=== PATIENT | male | born 1935 | race Caucasian/White ===

== ENCOUNTER → 2016-11-21 | Outpatient (CLI) | payer OTHER ==
[~2016-11-21] MED LIST: ACET-1311 PO; ALBUAER2 INH; AMPI500C9 PO; ASPI-232 PO; LSN20 PO; MOME200A INH; PRVC/20 PO; SPRIN/30 INH; TAMS0.4C38 PO
== END | disposition home or self-care (01) ==
LOC: C.LABSPEC 12:38
PROVIDERS: ATTEND Internal Medicine
DX: R39.9 Unspecified symptoms and signs involving the genitourinary system (principal)

== ENCOUNTER → 2017-01-08 | Outpatient (CLI) | payer OTHER ==
[2017-01-08 12:12] LABS: BASO % 0.6 %; BASO ABS # 0.06 K/uL (0-0.2); COMPLETE YES; EOS % 0.6 %; HEMATOCRIT 40.9 % (42-52); IG% 0.4 %; LYMPH ABS # 2.07 K/uL (1.2-3.4); MEAN CELL VOLUME 99.5 fL (80-100); MEAN CORPUSCULAR HEMOGLOBIN 33.8 pg (25-34); MEAN PLATELET VOLUME 10.2 fL (7.4-10.4); MONO % 7.9 %; NEUT % 71.5 %; PLATELET COUNT 298 K/uL (130-400); RED BLOOD COUNT 4.11 M/uL (4.7-6.1); WHITE BLOOD COUNT 10.87 K/uL (4.8-10.8)
[2017-01-08 12:19] LABS: ALT/SGPT 17 U/L (12-78); AST/SGOT 15 U/L (15-37); BLOOD UREA NITROGEN 25 mg/dl (7-18); BUN/CREATININE RATIO 19.2 (10-20); CALCIUM 9.1 mg/dl (8.5-10.1); CARBON DIOXIDE 28 mmol/L (21-32); CHLORIDE 107 mmol/L (98-107); CHOLESTEROL 116 mg/dl (0-200); GLUCOSE 109 mg/dl (70-99); POTASSIUM 4.5 mmol/L (3.5-5.1); SODIUM 140 mmol/L (136-145); TRIGLYCERIDES 115 mg/dl (0-150); VERY LOW DENSITY LIPOPROT CALC 23 mg/dl
[2017-01-08 12:22] LABS: ALKALINE PHOSPHATASE 89 U/L (45-117); CHOLESTEROL/HDL RATIO 2.9; HDL CHOLESTEROL 40 mg/dl; LDL CHOLESTEROL CALCULATED 53 mg/dl
[2017-01-08 12:44] LABS: ESTIMATED AVERAGE GLUCOSE 117 mg/dl; HA1C FLAG Normal (Normal)
== END | disposition home or self-care (01) ==
LOC: C.LABBFT 10:21
PROVIDERS: ATTEND Internal Medicine
DX: R73.01 Impaired fasting glucose (principal); E78.5 Hyperlipidemia, unspecified; N18.3 Chronic kidney disease, stage 3 (moderate)

== ENCOUNTER → 2017-07-17 | Outpatient (CLI) | payer OTHER ==
[2017-07-17 17:32] LABS: BASO ABS # 0.08 K/uL (0-0.2); COMPLETE YES; EOS % 1.9 %; HEMATOCRIT 40.6 % (42-52); IG% 0.2 %; LYMPH % 26.8 %; LYMPH ABS # 2.23 K/uL (1.2-3.4); MEAN CELL VOLUME 99.8 fL (80-100); MEAN CORPUSCULAR HEMOGLOBIN 34.6 pg (25-34); MEAN CORPUSCULAR HGB CONC 34.7 g/dl (32-36); MEAN PLATELET VOLUME 10.1 fL (7.4-10.4); MONO % 8.5 %; NEUT % 61.6 %; PLATELET COUNT 303 K/uL (130-400); RED BLOOD COUNT 4.07 M/uL (4.7-6.1); WHITE BLOOD COUNT 8.31 K/uL (4.8-10.8)
[2017-07-17 17:44] LABS: BLOOD UREA NITROGEN 19 mg/dl (7-18); BUN/CREATININE RATIO 17.2 (10-20); CALCIUM 8.9 mg/dl (8.5-10.1); CARBON DIOXIDE 28 mmol/L (21-32); CHLORIDE 107 mmol/L (98-107); GLUCOSE 97 mg/dl (70-99); POTASSIUM 4.2 mmol/L (3.5-5.1); SODIUM 140 mmol/L (136-145)
[2017-07-17 17:45] LABS: PHOSPHORUS 2.3 mg/dl (2.5-4.9)
[2017-07-18 06:43] LABS: ESTIMATED AVERAGE GLUCOSE 108 mg/dl; HA1C FLAG Normal (Normal)
== END | disposition home or self-care (01) ==
LOC: C.LABBFT 14:44
PROVIDERS: ATTEND Internal Medicine
DX: N18.3 Chronic kidney disease, stage 3 (moderate) (principal); D64.9 Anemia, unspecified; E55.9 Vitamin D deficiency, unspecified; R73.01 Impaired fasting glucose

== ENCOUNTER → 2017-12-04 | Outpatient (CLI) | payer OTHER ==
--- NOTE | 2017-12-04 13:23 | DIAGNOSTIC IMAGING REPORT ---
KUB HISTORY: Follow-up study in a patient with nephrolithiasis N20.0 Nephrolithiasis COMPARISON: CT abdomen and pelvis 01/23/2016, KUB 07/17/2015 FINDINGS: The bowel gas pattern is non-obstructive. Moderate stool volume throughout the colon. There is no organomegaly. 1.2 cm calculus projecting over the inferior pole right kidney appears unchanged. Bilateral renal shadows are obscured by bowel gas. No definite ureteral calculi identified. There are phleboliths of the pelvis. Multiple calcified granulomas of the spleen redemonstrated. No pneumoperitoneum or pneumatosis. No fracture. Degenerative changes are noted throughout the spine and bilateral hips. IMPRESSION: 1. Unchanged 1.2 cm calculus of the inferior pole right kidney. No ureteral calculi identified. 2. Nonobstructive bowel gas pattern with moderate stool volume suggesting constipation. 3. Prior granulomatous disease. Electronically signed by: Lul Rendon M.D. 12/04/2017 1:21 PM Dictated Date/Time: 12/04/2017 1:19 PM
== END | disposition home or self-care (01) ==
LOC: C.RAD 13:01
PROVIDERS: ATTEND Urology
DX: N20.0 Calculus of kidney (principal)

== ENCOUNTER → 2017-12-12 | Outpatient (CLI) | payer OTHER | END | disposition home or self-care (01) | LOC: C.LABSPEC 17:01 | PROVIDERS: ATTEND Physician Assistant Medical | DX: N39.0 Urinary tract infection, site not specified (principal) ==

== ENCOUNTER → 2018-01-22 | Outpatient (CLI) | payer OTHER ==
[2018-01-22 18:12] LABS: ALBUMIN 3.7 gm/dl (3.4-5.0); ALT/SGPT 17 U/L (12-78); AST/SGOT 15 U/L (15-37); BLOOD UREA NITROGEN 18 mg/dl (7-18); CALCIUM 9.7 mg/dl (8.5-10.1); CARBON DIOXIDE 29 mmol/L (21-32); CHOLESTEROL 101 mg/dl (0-200); CREATININE 1.31 mg/dl (0.60-1.40); GLUCOSE 96 mg/dl (70-99); POTASSIUM 4.6 mmol/L (3.5-5.1); SODIUM 139 mmol/L (136-145)
[2018-01-22 18:16] LABS: ALKALINE PHOSPHATASE 88 U/L (45-117); LDL CHOLESTEROL CALCULATED 38 mg/dl
== END | disposition home or self-care (01) ==
LOC: C.LABBFT 14:13
PROVIDERS: ATTEND Internal Medicine
DX: E78.5 Hyperlipidemia, unspecified (principal); R73.01 Impaired fasting glucose

== ENCOUNTER 2019-01-11 13:54 | Inpatient (IN) ==
--- NOTE | 2019-01-11 14:37 | XRay Report ---
XR chest 1V portable HISTORY: 83 years-old Male Chest Pain acute atypical chest pain COMPARISON: Chest radiograph 01/01/2019 TECHNIQUE: Portable AP view of the chest FINDINGS: Cardiac mediastinal and hilar silhouettes are within normal limits. Emphysema with areas of chronic i nterstitial coarsening. Calcification the thoracic aortic arch. No pneumothorax, pleural effusion or overt pulmonary edema. No lobar airspace consolidation. Degenerative changes of the shoulders and spi ne. Calcified right hilar lymph nodes. IMPRESSION: No acute process. The above report was generated using voice recognition software. It may contain grammatical, syntax o r spelling errors. Electronically signed by: Lul Rendon M.D. 01/11/2019 2:36 PM
[2019-01-11 14:41] LABS: Basophils # (auto) 0.02 K/uL (0-0.2); Basophils % (auto) 0.1 %; Hematocrit (blood only) 41.5 % (42-52); Immature Granulocytes # (auto) 0.07 K/uL (0.00-0.02); Immature Granulocytes % (auto) 0.4 %; Lymphocytes # (auto) 0.34 K/uL (1.2-3.4); Lymphocytes % (auto) 2.1 %; Mean Corpuscular Hgb Conc 33.7 g/dL (32-36); Mean Platelet Volume 9.5 fL (7.4-10.4); Monocytes # (auto) 0.27 K/uL (0.11-0.59); Monocytes % (auto) 1.7 %; Neutrophils # (auto) 15.22 K/uL (1.4-6.5); Neutrophils % (auto) 95.7 %; Platelet Count 348 K/uL (130-400); RDW Coefficient of Variation 15.1 % (11.5-14.5); RDW Standard Deviation 54.9 fL (36.4-46.3); Red Blood Count 4.15 M/uL (4.7-6.1); White Blood Count 15.92 K/uL (4.8-10.8)
[2019-01-11 14:54] LABS: Alanine Aminotransferase 41 U/L (12-78); Albumin Level 3.4 gm/dl (3.4-5.0); Aspartate Aminotransferase 21 U/L (15-37); BUN Creatinine Ratio 19.5 (10-20); Blood Urea Nitrogen 27 mg/dl (7-18); Calcium 9.3 mg/dl (8.5-10.1); Carbon Dioxide 29 mmol/L (21-32); Chloride 101 mmol/L (98-107); Est GFR (African American) 54.9; Est GFR (Non-African American) 47.4; Glucose 120 mg/dl (70-99); Potassium 4.1 mmol/L (3.5-5.1); Sodium 137 mmol/L (136-145)
[2019-01-11 14:59] LABS: Albumin Globulin Ratio 0.9 (0.9-2); Alkaline Phosphatase 147 U/L (45-117); Bilirubin,Total 0.6 mg/dl (0.2-1); NT Pro B Type Natriuretic Pept 438 pg/ml (0-1800); Total Protein 7.4 gm/dl (6.4-8.2); Troponin I < 0.015 ng/ml (0-0.045)
--- NOTE | 2019-01-11 15:22 | Emergency Department Note ---
Entered by Kelvin Dos Santos acting as a scribe for Leoncio Smith MD History of Present Illness General Chief complaint: Swelling/Edema to Extremity Stated complaint: SWELLING AND FLUID IN FEED Time Seen by Provider: 01/11/19 14:07 Source: patient and family Limitations: no limitations History of Present Illness Provider complaint: LE swelling Onset (ago): day(s) (4) Location: lower extremity, left and right Pain Consistency: + other (worsening) Quality: + other (LE edema) Associated symptoms: + cough Treatments prior to arrival: other (Lasix) The patient is an 83 year old male who presents to the Emergency Room with complaints of worsening swelling to his lower extremities bilaterally. The patient's daughter at bedside states that the patient went to his primary care office 4 days ago secondary to the swelling. He was started on a 3-day course of Lasix. His last dosage of Lasix was yesterday, but his LE swelling has persisted. The patient took off his socks today for the first time in a couple of days and noticed weeping and bleeding from the ankles/feet bilaterally. The daughter states that his legs have never had the weeping before. The patient denies itching the legs. He is on Eliquis, but has not history of DVT. The daughter does note an intermittent cough. He is on 30 mg of Steroids daily as well. Home Medications Home Medications Medication Instructions Recorded Confirmed Type acetaminophen 650 mg PO DIRECTED PRN 07/26/18 01/11/19 History albuterol sulfate 2 puff INHALATION QID PRN 07/26/18 01/11/19 History aspirin 81 mg PO DAILY 07/26/18 01/11/19 History lisinopril 20 mg PO DAILY 07/26/18 01/11/19 History tiotropium bromide 1 cap INHALATION DAILY 07/26/18 01/11/19 History apixaban [Eliquis] 2.5 mg PO BID 09/13/18 01/11/19 History cholecalciferol (vitamin D3) 2,000 units PO DAILY 09/13/18 01/11/19 History [Vitamin D3] guaifenesin [Mucinex] 1,200 mg PO Q12 09/13/18 01/11/19 History ipratropium-albuterol 3 ml INHALATION QID 09/13/18 01/11/19 History metoprolol succinate 50 mg PO DAILY 09/13/18 01/11/19 History benzonatate 100 mg PO QPM PRN 12/14/18 01/11/19 History dutasteride 0.5 mg PO DAILY 12/14/18 01/11/19 History mometasone-formoterol [Dulera] 2 puff INHALATION BID 12/14/18 01/11/19 History sennosides-docusate sodium [Senna 1 tab PO BID PRN 12/14/18 01/11/19 History Plus] benzonatate 100 mg PO TID 01/11/19 01/11/19 History montelukast 10 mg PO DAILY 01/11/19 01/11/19 History polyethylene glycol 3350 [Purelax] 17 g PO DAILY 01/11/19 01/11/19 History prednisone 10 mg PO DIRECTED 01/11/19 01/11/19 History Allergies Allergy/AdvReac Type Severity Reaction Status Date / Time cilostazol Allergy Unknown dizziness, Verified 01/11/19 14:11 palpitations diltiazem Allergy Unknown diziness, Verified 01/11/19 14:11 palpitations simvastatin AdvReac Unknown dizziness Verified 01/11/19 14:11 Past Med/Surg History Medical History Chronic diastolic heart failure Paroxysmal atrial fibrillation Tachycardia Hyperlipidemia Hypertension Hypoxia (Acute) COPD exacerbation (Acute) Chronic obstructive pulmonary disease (Acute) Acute dehydration (Inactive) Asthma Enlarged prostate Hx of renal calculi Hypertension Leukocytosis Social History Preferred Language: Bengali Beliefs That Will Affect Care: None marital status: Current Living Situation: Spouse Feels Safe at Home: Yes Smoking Status: Current every day smoker Hx Alcohol Use: No Hx Substance Use: No Review of Systems See HPI for pertinent positives & negatives. and A total of 10 systems reviewed and were otherwise negative Physical Exam Vital Signs Vital Signs - 24 hr 01/11/19 13:56 01/11/19 14:52 01/11/19 16:07 Temperature 36.3 C L Temperature Source Oral Sepsis Recent Fever Within 48 Hours No Sepsis New/Unexplained Change in Mental Status No Sepsis Action Taken by Nursing No Action Required Pulse Rate 84 Pulse Rate [Apical] 100 H Pulse Rhythm [Apical] Regular Pulse Strength [Apical] Normal Respiratory Rate 20 16 Respiratory Effort / Characteristics Non-Labored Respiratory Depth Normal Respiratory Pattern Regular Blood Pressure 154/84 H Blood Pressure [Right Arm] 154/92 H Blood Pressure Mean 107 Blood Pressure Mean [Right Arm] 112 Blood Pressure Position [Right Arm] Sitting Pulse Oximetry 96 95 Oxygen Delivery Method Room Air Room Air Room Air General: Non-ill appearing older male in no acute distress. HEENT: Normal cephalic atraumatic. Pupils are equal round and reactive to light. Extraocular movements are intact. Oropharynx is pink with moist mucous membranes. No swelling of the mouth lips or tongue. Neck: Supple with a midline trachea. No meningeal signs or stiffness, no JVD or bruits. No Stridor. Chest: Clear to auscultation bilaterally. No wheezes or rhonchi. No increased work of breathing. Heart: regular rate and rhythm. Abdomen: Soft nontender, nondistended without rebound guarding or rigidity. Extremities: There is bilateral pitting edema to the lower extremities with superficial skin break down on the ankles. There is weeping noted on the shins without redness or puss. Spine/Back. Non tender to palpation. No CVA tenderness Skin: Good turgor without rashes. Neurologic exam: Cranial nerves two through 12 are intact. Motor and sensation are intact and symmetrical throughout. Course 1408: The patient was evaluated in room A9B, and a complete history and physical examination were performed. 1627: I checked on the patient. He is stable. I ordered 20 of Lasix IV. I ordered a US of both legs. 1736: I checked on the patient. He did diurese. The patient is on his way to [place]. 1749: I reviewed the patient's case with Dr. Riley - [facility] Hospitalist. She will evaluate the patient for further management. Administered Medications Discontinued Medications Furosemide (Lasix) Confirm Administered Dose 40 mg IV .STK-MED ONE Stop: 01/11/19 16:49 Last Admin: 01/11/19 16:52 Dose: Not Given [place]ed [place]: [id number] Furosemide 20 mg/ Syringe 2 mls @ 4 mls/min IV ONE ONE Stop: 01/11/19 16:25 Last Admin: 01/11/19 16:52 Dose: 4 mls/min Documented by: [id number] Medical Decision Making Differential Diagnosis Differential Diagnosis includes: CHF, renal disease, electrolyte or metabolic abnormality, myocardial infarction. Medical Records Attestation: I reviewed the patient's medical records. Home Medications Current Medication List: was personally reviewed by me Laboratory Data Attestation: I reviewed the patient's lab results. Result diagrams: 01/11/19 14:29 01/11/19 14:29 Lab Results 01/11/19 01/11/19 Range/Units 14:29 14:29 WBC 15.92 H (4.8-10.8) K/uL RBC 4.15 L (4.7-6.1) M/uL Hgb 14.0 (14.0-18.0) g/dL Hct 41.5 L (42-52) % MCV 100.0 (80-100) fL MCH 33.7 (25-34) pg MCHC 33.7 (32-36) g/dL RDW Std Deviation 54.9 H (36.4-46.3) fL RDW Coeff of Ashley 15.1 H (11.5-14.5) % Plt Count 348 (130-400) K/uL MPV 9.5 (7.4-10.4) fL Immature Gran % (Auto) 0.4 % Neut % (Auto) 95.7 % Lymph % (Auto) 2.1 % [place] % (Auto) 1.7 % Eos % (Auto) 0.0 % Baso % (Auto) 0.1 % Immature Gran # (Auto) 0.07 H (0.00-0.02) K/uL Neut # (Auto) 15.22 H (1.4-6.5) K/uL Lymph # (Auto) 0.34 L (1.2-3.4) K/uL [place] # (Auto) 0.27 (0.11-0.59) K/uL Eos # (Auto) 0.00 (0-0.5) K/uL Baso # (Auto) 0.02 (0-0.2) K/uL Sodium 137 (136-145) mmol/L Potassium 4.1 (3.5-5.1) mmol/L Chloride 101 (98-107) mmol/L Carbon Dioxide 29 (21-32) mmol/L Anion Gap 7.0 (3-11) BUN 27 H (7-18) mg/dl Creatinine 1.37 (0.6-1.4) mg/dl Est Cr Clr Drug Dosing Not Reportable Est GFR ( Amer) 54.9 Est GFR (Non-Af Amer) 47.4 BUN/Creatinine Ratio 19.5 (10-20) Glucose 120 H (70-99) mg/dl Calcium 9.3 (8.5-10.1) mg/dl Total Bilirubin 0.6 (0.2-1) mg/dl AST 21 (15-37) U/L ALT 41 (12-78) U/L Alkaline Phosphatase 147 H (45-117) U/L Troponin I < 0.015 (0-0.045) ng/ml NT-Pro-B Natriuret Pep 438 (0-1800) pg/ml Total Protein 7.4 (6.4-8.2) gm/dl Albumin 3.4 (3.4-5.0) gm/dl Globulin 4.0 (2.5-4.0) gm/dl Albumin/Globulin Ratio 0.9 (0.9-2) Lipase 101 (73-393) U/L Imaging Data Attestation: I personally reviewed and interpreted this imaging study as follows: Radiologist's Impression: XR chest 1V portable HISTORY: 83 years-old Male Chest Pain acute atypical chest pain COMPARISON: Chest radiograph 01/01/2019 TECHNIQUE: Portable AP view of the chest FINDINGS: Cardiac mediastinal and hilar silhouettes are within normal limits. Emphysema with areas of chronic interstitial coarsening. Calcification the thoracic aortic arch. No pneumothorax, pleural effusion or overt pulmonary edema. No lobar airspace consolidation. Degenerative changes of the shoulders and spine. Calcified right hilar lymph nodes. IMPRESSION: No acute process. The above report was generated using voice recognition software. It may contain grammatical, syntax or spelling errors. Electronically signed by: Lul Rendon M.D. 01/11/2019 2:36 PM ECG Data Attestation: I personally reviewed and interpreted this ECG as follows: Indication: other (Edema) Rate (beats per minute): 80 Rhythm: normal sinus Findings: + other (Poor baseline); no ST depression, no ST elevation and no acute ischemic change Comparison ECG Date: from (01/01/2019) Change: no significant change Blood Pressure Blood Pressure Findings: Elevated blood pressure Blood Pressure Disposition: further management by hospitalist MDM Narrative This patient comes in as described above. He has a history of COPD and may have had some congestive heart failure in the past but does not typically have peripheral edema comes in after having lower extremity edema over the last several days. it is pitting and weeping. He has some skin breakdown on his left heel. there is no overt cellulitis, he has had no fever. he looks comfortable besides having significant edema. IV access established and multiple blood testing was obtained. EKG, chest x-ray, and blood work was obtained. He was reassessed frequently. Chest x-ray did not show any significant CHF. His BNP is not significantly elevated. Troponins not elevated. EKG did not show any ischemic changes or ectopy. He was given Lasix 20 mg IV and did diurese with this. I did order ultrasounds of his legs and these are unremarkable with no evidence of DVT. I did discuss case with Dr. Arianne Riley as I do think he needs to be admitted/observe for diuresis and further workup. He does not have a history of CHF. Impression & Plan Bilateral lower extremity edema, CHF (congestive heart failure) Discharge Plan Visit Data Chief Complaint: Swelling/Edema to Extremity Stated Complaint: SWELLING AND FLUID IN FEED ED Provider: Leoncio Smith Discharge Problem: Bilateral lower extremity edema, CHF (congestive heart failure) Patient Disposition: Being Evaluated by Hospitalist Forms Stand Alone Forms: My [facility] Prescriptions Prescriptions: No Action ipratropium-albuterol 0.5 mg-3 mg(2.5 mg base)/3 mL solution for nebulization 3 ml Inhalation QID RF: 0 metoprolol succinate 50 mg tablet extended release 24 hr 50 mg PO DAILY RF: 0 cholecalciferol (vitamin D3) [Vitamin D3] 2,000 unit Capsule 2,000 units PO DAILY RF: 0 Eliquis 2.5 mg tablet 2.5 mg PO BID RF: 0 guaifenesin [Mucinex] 600 mg Tablet Extended Release 12hr 1,200 mg PO Q12 RF: 0 montelukast 10 mg tablet 10 mg PO DAILY RF: 0 prednisone 10 mg Tablet 10 mg PO DIRECTED RF: 0 benzonatate 100 mg Capsule 100 mg PO TID RF: 0 polyethylene glycol 3350 [Purelax] 17 gram/dose Powder 17 g PO DAILY RF: 0 acetaminophen 325 mg Tablet 650 mg PO DIRECTED PRN (Reason: Fever Or Pain) RF: 0 lisinopril 20 mg tablet 20 mg PO DAILY RF: 0 aspirin 81 mg Tablet,Delayed Release (Dr/Ec) 81 mg PO DAILY RF: 0 albuterol sulfate 90 mcg/actuation HFA aerosol inhaler 2 puff Inhalation QID PRN (Reason: Shortness Of Breath) RF: 0 tiotropium bromide 18 mcg capsule, w/inhalation device 1 cap Inhalation DAILY RF: 0 sennosides-docusate sodium [Senna Plus] 8.6-50 mg tablet 1 tab PO BID PRN (Reason: Constipation) RF: 0 benzonatate 100 mg capsule 100 mg PO QPM PRN (Reason: Cough) RF: 0 dutasteride 0.5 mg capsule 0.5 mg PO DAILY RF: 0 Dulera 200-5 mcg/actuation HFA aerosol inhaler 2 puff Inhalation BID RF: 0 Referrals Referrals: Guerrero Morse MD [Primary Care Provider] - The scribe's documentation has been prepared under my direction and personally reviewed by me in its entirety. I confirm that the note above accurately reflects all work, treatment, procedures, and medical decision making performed by me.
[2019-01-11] MEDS ORDERED: FUROSEMIDE 20 MG in SYRINGE 0 ML IV ONE (16:24)
[2019-01-11] MEDS ORDERED: FUROSEMIDE 40 MG/4 ML VIAL IV ONE (16:48)
--- NOTE | 2019-01-11 18:44 | History & Physical Report ---
Date of Service January 11, 2019 Assessment & Plan (1) Bilateral lower extremity edema: New issue ECHO 07/2018 with EF 55-60% Will repeat given new issue CXR neg LE US pending Lasix 20mg IV in the ED, will leave further dosing to rounding team after exam (2) Ulceration: Appears to have cellulitis Keflex WCC (3) Abnormal EKG: New L posterior fascicular block noted ECHO pending Trop neg x1 (4) Paroxysmal atrial fibrillation: continue home meds Eliquis Follows with Dia Galvan if needed (5) Hyperlipidemia: continue home meds (6) Hypertension: continue home meds (7) BPH (benign prostatic hyperplasia): continue home meds (8) Chronic obstructive pulmonary disease: continue home meds Continue with steroid taper, 30mg to start 01/12 Nebs Add mucomyst Follows with Jesus Manuel Mcdaniel if needed (9) Tobacco use disorder: Nicotine patch (10) DVT prophylaxis: Eliquis History of Present Illness Primary Care Provider: Mateo Morse MD 83 y/o M c/o LE swelling. Daughter states that pt has been having SOB for the last few months with an ongoing cough and congestion. He was being seen by his PCP on Friday for this. He was changed to singular after the SCREW DOWN spoke with pt's pulm PA Jesus Manuel Mcdaniel. During the exam, PCP noted that had some very slight LE swelling. This had not been noted by pt or family. She gave 3 days worth of lasix. Daughter states that her niece is an aide and helps pt with bathing, etc. She came to see pt today and his LE swelling was much worse. It was also noted that he has an ulceration on his heel. Pt stated he had not taken off his socks for 2 days. Daughter states that pt is on eliquis and that this has made him very easy to bruise/bleed. Pt states he feels like he has to bring up something but just cannot get it loose. He feels his SOB is not getting worse, just not getting better. He states that his LE swelling was only just noted by himself today. L heel ulceration was there last week, but much smaller. He states he hit his heel at one point last week. Pt denies fever, chest pain, abd pain, n/v. Pt has been constipated. He tried miralax and senna with no relief. Pt has been having issues sleeping. He has been taking melatonin HS but no help. He feels that he will need something "for my nerves" tonight. Pt has been on a steroid taper. Today was the last day of 30mg. Tomorrow he is to take 20mg x4 days, then 15mg x4 days. Daughter states that as soon as they try to d/c steroids his SOB gets worse. He has also been using nebs 3-4x/day. Allergies Allergy/AdvReac Type Severity Reaction Status Date / Time cilostazol Allergy Unknown dizziness, Verified 01/11/19 14:11 palpitations diltiazem Allergy Unknown diziness, Verified 01/11/19 14:11 palpitations simvastatin AdvReac Unknown dizziness Verified 01/11/19 14:11 Home Medications Home Medications Medication Instructions Recorded Confirmed Type acetaminophen 650 mg PO DIRECTED PRN 07/26/18 01/11/19 History albuterol sulfate 2 puff INHALATION QID PRN 07/26/18 01/11/19 History aspirin 81 mg PO DAILY 07/26/18 01/11/19 History lisinopril 20 mg PO DAILY 07/26/18 01/11/19 History tiotropium bromide 1 cap INHALATION DAILY 07/26/18 01/11/19 History apixaban [Eliquis] 2.5 mg PO BID 09/13/18 01/11/19 History cholecalciferol (vitamin D3) 2,000 units PO DAILY 09/13/18 01/11/19 History [Vitamin D3] guaifenesin [Mucinex] 1,200 mg PO Q12 09/13/18 01/11/19 History ipratropium-albuterol 3 ml INHALATION QID 09/13/18 01/11/19 History metoprolol succinate 50 mg PO DAILY 09/13/18 01/11/19 History benzonatate 100 mg PO QPM PRN 12/14/18 01/11/19 History dutasteride 0.5 mg PO DAILY 12/14/18 01/11/19 History mometasone-formoterol [Dulera] 2 puff INHALATION BID 12/14/18 01/11/19 History sennosides-docusate sodium [Senna 1 tab PO BID PRN 12/14/18 01/11/19 History Plus] benzonatate 100 mg PO TID 01/11/19 01/11/19 History montelukast 10 mg PO DAILY 01/11/19 01/11/19 History polyethylene glycol 3350 [Purelax] 17 g PO DAILY 01/11/19 01/11/19 History prednisone 10 mg PO DIRECTED 01/11/19 01/11/19 History Past Med/Surg History Medical History Chronic diastolic heart failure Paroxysmal atrial fibrillation Tachycardia Hyperlipidemia Hypertension Hypoxia (Acute) COPD exacerbation (Acute) Chronic obstructive pulmonary disease (Acute) Acute dehydration (Inactive) Asthma Enlarged prostate Hx of renal calculi Hypertension Leukocytosis Family History Mother Cancer thyroid Other No significant family history Social History Preferred Language: Turkish Beliefs That Will Affect Care: None marital status: Current Living Situation: Spouse Feels Safe at Home: Yes Smoking Status: Current every day smoker Hx Alcohol Use: No Hx Substance Use: No Review of Systems Pertinent positives and negatives reviewed in HPI--all others negative Physical Exam Vital Signs (Past 24 Hours): Last Vital Signs Temp 36.3 C L 01/11/19 13:56 Pulse 100 H 01/11/19 16:07 Resp 16 01/11/19 16:07 BP 154/92 H 01/11/19 16:07 Pulse Ox 95 01/11/19 16:07 Constitutional: WD/WN, vitals as above Eyes: normal visual humphrey by confrontation and + anicteric sclerae Neck: normal visual inspection and trachea midline Respiratory: normal respiratory effort; no respiratory distress Auscultation: no crackles and no wheezes upper airway congestion Cardiovascular: Rate/Rhythm: regular rate and regular rhythm Gastrointestinal (Abdomen): Inspection/Auscultation: abdomen not distended Percussion/Palpation: abdomen soft; abdomen nontender Musculoskeletal: Head/Neck/Chest: normocephalic and head atraumatic b/l 2+ pitting LE edema, peripheral pulses intact Skin: L heel with redness and warm to touch Nonbleeding, nonpurulent Neurologic: awake; not confused Speech / Cognition: normal speech Psychiatric: A+Ox3, euthymic affect Results & Data Diagnostic Findings CXR: neg for acute LE US neg for DVT ECG Rhythm: normal sinus Code Status & VTE Plan Code Status Full cardiac code, DNI per pt. Daughters present during discussion VTE Prophylaxis Plan VTE Prophylaxis will be ordered: Yes
--- NOTE | 2019-01-11 18:54 | Ultrasound Report ---
ULTRASOUND BILATERAL LOWER EXTREMITY VENOUS CLINICAL HISTORY: Lower extremity edema Atypical chest pain. Clinical concern for deep venous thrombo sis. COMPARISON STUDY: No priors. TECHNIQUE: Real-time, grayscale, and color Doppler sonography of the deep veins of the right and left lower extremity was performed from the inguinal crease to the calf. Compression and augmentation wer e utilized. FINDINGS: There is no sonographic evidence of deep venous thrombosis identified in the right or left lower extremity. The common femoral, superficial femoral, and popliteal veins are patent and normally compressible bilaterally. The greater saphenous vein and the profunda femoris vein at the junction w ith the common femoral vein are clear in both legs. The visualized calf veins are patent bilaterally. IMPRESSION: There is no sonographic evidence of deep venous thrombosis identified in the right or lef t lower extremity. Electronically signed by: Vidal Love M.D. 01/11/2019 6:53 PM
[2019-01-11] MEDS ORDERED: ONDANSETRON INJ 2 MG/ML 2 ML VIAL IV PRN (19:49)
[2019-01-11] MEDS ORDERED: DOCUSATE SODIUM/SENNA 50/8.6MG TAB PO PRN (19:49)
[2019-01-11] MEDS ORDERED: ALBUTEROL HFA 8 GM INHALER INH PRN (19:49)
[2019-01-11] MEDS ORDERED: BENZONATATE 100 MG CAPSULE PO PRN ×2 (19:49→21:00)
[2019-01-11] MEDS ORDERED: ACETAMINOPHEN 325 MG TAB PO PRN (19:49)
[2019-01-11] MEDS ORDERED: MAGNESIUM HYDROXIDE SUSP 30 ML UDC PO PRN (19:49)
[2019-01-11] MEDS ORDERED: LORazepam 0.25 MG/0.5 ML VIAL IV ONE (20:15)
[2019-01-11] MEDS ORDERED: MAGNESIUM HYDROXIDE SUSP 30 ML UDC PO STA (20:18)
[2019-01-11] MEDS: ALBUT/IPRATROP 3MG/0.5MG NEB 3 ML VIAL INH SCH (20:26)
[2019-01-11] MEDS: ACETYLCYSTEINE 20% INHAL SOLN ***DISPENSED BY RESP. INH SCH (20:29)
[2019-01-11] MEDS: ALBUT/IPRATROP 3MG/0.5MG NEB 3 ML VIAL NEB SCH (20:30)
[2019-01-11] MEDS: guaiFENesin 600 MG TABCR PO SCH (21:09)
[2019-01-11] MEDS: APIXABAN 2.5 MG TAB PO SCH (21:09)
[2019-01-11] MEDS: NICOTINE 14 MG/24 HR PATCH TD SCH (21:12)
[2019-01-11] MEDS: cephALEXin 500 MG CAP PO SCH (21:13)
[2019-01-11] MEDS ORDERED: LORazepam 2 MG/4 ML VIAL ONE (23:08)
[2019-01-12] MEDS: ALBUT/IPRATROP 3MG/0.5MG NEB 3 ML VIAL NEB SCH ×5 (00:51→16:11)
[2019-01-12] MEDS ORDERED: SODIUM CHLORIDE 0.65% NA SOLN 45 ML (OCEAN) ONE (01:37)
[2019-01-12] MEDS ORDERED: SALINE NASAL 225 SPRAYS, GENTAMICIN SULFATE 60 MG, BARCODE IDENTIFIER 0 EA PRN (01:39)
[2019-01-12] MEDS: ACETAMINOPHEN 325 MG TAB PO PRN ×4 (01:42→22:37)
[2019-01-12] MEDS ORDERED: SODIUM CHLORIDE 0.65% NA SOLN 45 ML (OCEAN) PRN (02:25)
--- NOTE | 2019-01-12 03:23 | Progress Note ---
Date of Service January 12, 2019 Assessment & Plan (1) SOB (shortness of breath): Called for dyspnea when getting up to the bedside commode, patient having trouble using the urinal at the bedside as well PE Pulm; BL wheezing with forced expiration, breathing comfortably on oxy mask, but poor chest wall expansion, No crackles 4L oxy mask patient is alert and oriented Plan 1. COPD ex - Solumedrol - Continue Dounebs - Place tong temporarily as the patient is having trouble urinating (recieved lasix today) Physical Exam Vital Signs (Past 24 Hours): Last Vital Signs Temp 36.5 C 01/11/19 23:49 Pulse 119 H 01/12/19 03:08 Resp 16 01/12/19 03:08 BP 139/81 01/11/19 23:49 Pulse Ox 93 01/12/19 03:08
[2019-01-12] MEDS: methylPREDNISolone 60 MG in SYRINGE 0 ML IV SCH ×3 (04:19→21:26)
--- NOTE | 2019-01-12 06:37 | XRay Report ---
XR chest 1V portable CLINICAL HISTORY: Hypoxia, tachycardia, abnormal breath sounds. COMPARISON STUDY: 01/11/2019 FINDINGS: The cardiac and mediastinal contours remain stable. There is underlying pulmonary emphysema . There are developing left basilar airspace opacity suspicious for a pneumonia. Clinical and radiogr aphic follow-up is recommended. There are no significant pleural effusions.[ IMPRESSION: 1. Pulmonary emphysema 2. Developing left basilar airspace opacities. This could represent a developing pneumonia. Clinical and radiographic follow-up is recommended Electronically signed by: Maulik Kinney M.D. 01/12/2019 6:36 AM
[2019-01-12 06:39] LABS: Hematocrit (blood only) 38.9 % (42-52); Mean Corpuscular Hgb Conc 33.4 g/dL (32-36); Mean Corpuscular Volume 99.7 fL (80-100); Mean Platelet Volume 9.7 fL (7.4-10.4); Platelet Count 283 K/uL (130-400); RDW Coefficient of Variation 15.3 % (11.5-14.5); RDW Standard Deviation 55.8 fL (36.4-46.3); White Blood Count 26.75 K/uL (4.8-10.8)
[2019-01-12 06:53] LABS: BUN Creatinine Ratio 27.1 (10-20); Calcium 8.5 mg/dl (8.5-10.1); Creatinine Clr Calc Pharmacy 37.1 ml/min; Est GFR (African American) 67.8; Est GFR (Non-African American) 58.5; Magnesium 2.1 mg/dl (1.8-2.4); Phosphorus 2.4 mg/dl (2.5-4.9); Potassium 4.1 mmol/L (3.5-5.1)
[2019-01-12] MEDS: ACETYLCYSTEINE 20% INHAL SOLN ***DISPENSED BY RESP. INH SCH ×2 (06:57→20:10)
[2019-01-12 06:58] LABS: Basophils # (auto) 0.01 K/uL (0-0.2); Immature Granulocytes # (auto) 0.09 K/uL (0.00-0.02); Immature Granulocytes % (auto) 0.3 %; Lymphocytes # (auto) 0.44 K/uL (1.2-3.4); Lymphocytes % (auto) 1.6 %; Monocytes # (auto) 1.11 K/uL (0.11-0.59); Monocytes % (auto) 4.1 %
[2019-01-12] MEDS: ALBUT/IPRATROP 3MG/0.5MG NEB 3 ML VIAL INH SCH ×4 (07:04→20:12)
[2019-01-12] MEDS: TIOTROPIUM BROMIDE 5 PUFF/90 MCG INH INH SCH (08:07)
[2019-01-12] MEDS: MONTELUKAST SODIUM 10 MG TABLET PO SCH (08:09)
[2019-01-12] MEDS: LISINOPRIL 20 MG TAB PO SCH (08:09)
[2019-01-12] MEDS: cephALEXin 500 MG CAP PO SCH ×2 (08:09→21:28)
[2019-01-12] MEDS: METOPROLOL SUCC 50MG EXT REL TAB PO SCH (08:09)
[2019-01-12] MEDS: APIXABAN 2.5 MG TAB PO SCH ×2 (08:09→21:28)
[2019-01-12] MEDS: predniSONE 10 MG TABLET PO SCH (08:09)
[2019-01-12] MEDS: guaiFENesin 600 MG TABCR PO SCH ×2 (08:09→21:27)
[2019-01-12] MEDS: ASPIRIN 81 MG ECTAB PO SCH (08:09)
[2019-01-12] MEDS: CHOLECALCIFEROL 1,000 UNITS TAB PO SCH (08:10)
[2019-01-12] MEDS: POLYETHYLENE (MIRALAX) 17 GM PACK PO SCH (08:11)
[2019-01-12] MEDS: NICOTINE 14 MG/24 HR PATCH TD SCH (12:14)
[2019-01-12] MEDS ORDERED: LORazepam 0.5 MG/1 ML VIAL IV STA (22:04)
--- NOTE | 2019-01-12 23:26 | Hospitalist Progress Note ---
Date of Service January 12, 2019 Assessment & Plan (1) Bilateral lower extremity edema: New issue ECHO 07/2018 with EF 55-60% Will repeat given new issue Awaiting new echo results. X-RAY does show some opacities, however clinically patient appears to be improving from his diuresis. Patient likely is overloaded and complicated by his CKD. At this time, I doubt infection as he has not required any antibiotics during this stay. He is however tacycardic but this can be explaine by the albuterol, will switch to xopenex. CXR neg Lasix 20mg IV in the ED, will hold off further diuretics for now and monitor. Patient is improving and is negative. (2) Ulceration: Appears to have cellulitis Keflex WCC (3) Abnormal EKG: New L posterior fascicular block noted ECHO pending Trop neg x3 (4) Paroxysmal atrial fibrillation: continue home meds Eliquis Tachycardic, ay be worsened by albuterol, will switch to levalbuterol. Follows with Dia Galvan if needed (5) Hyperlipidemia: continue home meds (6) Hypertension: continue home meds (7) BPH (benign prostatic hyperplasia): continue home meds (8) Chronic obstructive pulmonary disease: continue home meds Continue with steroid taper, 30mg to start 01/12 Nebs Add mucomyst Follows with Jesus Manuel Mcdaniel if needed (9) Tobacco use disorder: Nicotine patch (10) Chronic kidney disease, stage 3: GFR: 58.5 will monitor GFR. (11) Patient underweight: Underweight, BMI 16.6 kg/m*m (12) DVT prophylaxis: Clau Spent 35 minutes in management of patient. Subjective 83 yo male reports feeling better today. Patient reports breathing better. Patient states the swelling of his legs have gone down as well. Patient denies any fever, chills, nausea, vomiting. Updated family. Physical Exam Vital Signs (Past 24 Hours): Last Vital Signs Temp 36.4 C L 01/12/19 19:11 Pulse 114 H 01/12/19 20:12 Resp 16 01/12/19 20:12 BP 108/63 01/12/19 19:11 Pulse Ox 91 01/12/19 20:12 Physical Exam: Constitutional: WD/WN, vitals as above Eyes: normal visual humphrey by confrontation and + anicteric sclerae Neck: normal visual inspection and trachea midline Respiratory: normal respiratory effort; no respiratory distress Auscultation: no crackles and no wheezes upper airway congestion Cardiovascular: Rate/Rhythm: regular rate and regular rhythm Gastrointestinal (Abdomen): Inspection/Auscultation: abdomen not distended Percussion/Palpation: abdomen soft; abdomen nontender Musculoskeletal: + 1 EDEMA, peripheral pulses intact Skin: L heel with redness and warm to touch Nonbleeding, nonpurulent Neurologic: awake; not confused Speech / Cognition: normal speech Psychiatric: A+Ox3, euthymic affect
[2019-01-13] MEDS: IPRATROPIUM BROMIDE NEB SOLN 0.02% 2.5 ML VIAL INH SCH ×4 (01:41→19:30)
[2019-01-13] MEDS: LEVALBUTEROL 1.25MG/0.5ML NEB INH SCH ×4 (01:41→19:31)
[2019-01-13] MEDS ORDERED: XOPENEX/ATROVENT 1.25mg/0.5MG NEB COMBO NEB SCH (02:00)
[2019-01-13] MEDS: methylPREDNISolone 60 MG in SYRINGE 0 ML IV SCH ×3 (03:42→20:11)
[2019-01-13] MEDS: ACETYLCYSTEINE 20% INHAL SOLN ***DISPENSED BY RESP. INH SCH ×2 (07:10→19:31)
[2019-01-13] MEDS: TIOTROPIUM BROMIDE 5 PUFF/90 MCG INH INH SCH (08:15)
[2019-01-13] MEDS: POLYETHYLENE (MIRALAX) 17 GM PACK PO SCH (08:16)
[2019-01-13] MEDS: guaiFENesin 600 MG TABCR PO SCH ×2 (08:18→21:34)
[2019-01-13] MEDS: APIXABAN 2.5 MG TAB PO SCH ×2 (08:18→21:35)
[2019-01-13] MEDS: CHOLECALCIFEROL 1,000 UNITS TAB PO SCH (08:18)
[2019-01-13] MEDS: cephALEXin 500 MG CAP PO SCH ×2 (08:27→21:35)
[2019-01-13] MEDS: LISINOPRIL 20 MG TAB PO SCH (08:27)
[2019-01-13] MEDS: MONTELUKAST SODIUM 10 MG TABLET PO SCH (08:27)
[2019-01-13] MEDS: ASPIRIN 81 MG ECTAB PO SCH (08:27)
[2019-01-13] MEDS: predniSONE 10 MG TABLET PO SCH (08:27)
[2019-01-13] MEDS: NICOTINE 14 MG/24 HR PATCH TD SCH (08:28)
[2019-01-13] MEDS: METOPROLOL SUCC 50MG EXT REL TAB PO SCH (08:28)
[2019-01-13 09:15] LABS: Hematocrit (blood only) 38.1 % (42-52); Mean Corpuscular Hgb Conc 34.1 g/dL (32-36); Mean Corpuscular Volume 100.3 fL (80-100); Mean Platelet Volume 9.5 fL (7.4-10.4); Platelet Count 306 K/uL (130-400); RDW Coefficient of Variation 15.3 % (11.5-14.5); RDW Standard Deviation 55.6 fL (36.4-46.3); White Blood Count 23.07 K/uL (4.8-10.8)
[2019-01-13 09:34] LABS: BUN Creatinine Ratio 33.9 (10-20); Calcium 8.9 mg/dl (8.5-10.1); Creatinine Clr Calc Pharmacy 28.9 ml/min; Est GFR (African American) 51.7; Est GFR (Non-African American) 44.6; Magnesium 2.3 mg/dl (1.8-2.4); Potassium 4.5 mmol/L (3.5-5.1)
[2019-01-13 09:37] LABS: Phosphorus 3.2 mg/dl (2.5-4.9)
[2019-01-13] MEDS: ACETAMINOPHEN 325 MG TAB PO PRN ×2 (12:40→21:48)
--- NOTE | 2019-01-13 15:57 | CT Scan Report ---
CT SCAN OF THE CHEST WITHOUT IV CONTRAST CLINICAL HISTORY: Hypoxia. Pulmonary nodules. COMPARISON STUDY: Chest CT scans dated 11/09/2018 and 05/20/2007. Chest x-ray dated 01/12/2019. TECHNIQUE: CT scan of the thorax was performed from the thoracic inlet to the upper abdomen. Images are reviewed in the axial, sagittal, and coronal planes. IV contrast was not administered for this ex amination as per the referring clinician. A dose lowering technique was utilized adhering to the nicci Fraser. The examination is degraded by motion artifact, as well as by streak artifact from the arms which could not be elevated above the chest. CT DOSE: 266.11 mGy.cm FINDINGS: Thyroid: Imaged portions of the thyroid gland are normal in size and attenuation. Thoracic aorta: There is advanced atherosclerotic calcification of the thoracic aorta, which is louie l in caliber and demonstrates standard 3-vessel arch anatomy. Heart: The heart is normal in size and without pericardial effusion. The coronary arteries are densel y calcified. Lungs and pleural spaces: Advanced emphysematous change with chronic interstitial thickening/nodulari ty is again seen throughout both lungs with associated biapical pleural parenchymal scarring. The tra arely and central airways are clear. Patchy airspace consolidation is present at both lung bases, left greater than right. No pleural effusion is identified. Peribronchial thickening is noted the lower l obes, and intraluminal secretions/fluid are present in the lower lobe airways bilaterally. Mediastinum: There are large calcified mediastinal lymph nodes. No mediastinal adenopathy is seen. Carolyn: Not well assessed without IV contrast. Axillae: There is no axillary lymphadenopathy. Upper abdomen: There is advanced atherosclerotic calcification of the visualized abdominal aorta. The re are numerous calcified splenic granulomas. Calcified granulomas are also seen in the liver. Skeletal structures: The skeletal structures are osteopenic. Degenerative change and hyperkyphosis ar e noted throughout the thoracic spine. There is a severe compression deformity of T6. No retropulsed fragments are identified. There are healed right-sided rib fractures. No lytic or blastic bony lesion s are seen. Soft tissues: The patient is cachectic. IMPRESSION: 1. There is a severe compression deformity of T6, new from 11/09/2018. No retropulsed fragments are alli ntified. 2. Advanced emphysema. 3. Patchy airspace consolidation is present at both lung bases, left greater than right. The appearan ce is typical for pneumonia/aspiration pneumonitis. Aspiration is a strong consideration given bilate ral lower lobe peribronchial thickening and fluid/debris within the lower lobe bronchi. Radiographic follow-up to resolution is recommended. 4. No pleural effusion is identified. 5. Additional findings as above. Electronically signed by: Vidal Love M.D. 01/13/2019 3:56 PM
[2019-01-13] MEDS ORDERED: hydrOXYzine HCl 10 MG TAB PO PRN (20:56)
[2019-01-13] MEDS: MOMETASONE/FORMOTEROL INH SCH (21:34)
--- NOTE | 2019-01-13 22:22 | Hospitalist Progress Note ---
Date of Service January 13, 2019 Assessment & Plan (1) Bilateral lower extremity edema: New issue ECHO 07/2018 with EF 55-60% Will repeat given new issue New echo was limited but did not show any left ventricle abnormalities. The reports doers state that the images were poor and the EF was low normal. X-RAY does show some opacities, however clinically patient appears to be improving from his diuresis. Will obtain CT scan of Lung. Patient was likely overloaded and complicated by his CKD but improved with diuresis. WBC however is elevated. Will recheck WBC in AM. Depending on images will may start antibiotics. He is however tacycardic but this can be explaine by the albuterol, will switch to xopenex. CXR neg Lasix 20mg IV in the ED, will hold off further diuretics for now and monitor. Patient is improving and is negative. (2) Ulceration: Appears to have cellulitis Keflex WCC (3) Abnormal EKG: New L posterior fascicular block noted ECHO complete Trop neg x3 (4) Paroxysmal atrial fibrillation: continue home meds Eliquis Tachycardic, ay be worsened by albuterol, will switch to levalbuterol. Follows with Dia Galvan if needed On 01/13 HR appears better controlled will monitor. (5) Hyperlipidemia: continue home meds (6) Hypertension: continue home meds (7) BPH (benign prostatic hyperplasia): continue home meds (8) Chronic obstructive pulmonary disease: continue home meds Continue with steroid taper. currently on methlyprednisolone Nebs Add mucomyst Follows with Jesus Manuel Mcdaniel if needed (9) Tobacco use disorder: Nicotine patch (10) Chronic kidney disease, stage 3: GFR: 58.5 will monitor GFR. (11) Patient underweight: Underweight, BMI 16.6 kg/m*m (12) DVT prophylaxis: Wandasathyahugh Spent 35 minutes in management of patient. D/W with family Subjective 83 yo male reports no significant improvement. He does note that his leg swelling remains down. But he continues to require oxygen. Patient denies any fever or chills, nausea, vomiting. Updated family. Physical Exam Vital Signs (Past 24 Hours): Last Vital Signs Temp 36.5 C 01/13/19 19:30 Pulse 110 H 01/13/19 19:34 Resp 18 01/13/19 19:34 BP 104/64 01/13/19 19:30 Pulse Ox 100 01/13/19 19:34 Physical Exam: Constitutional: WD/WN, vitals as above Eyes: normal visual humphrey by confrontation and + anicteric sclerae Neck: normal visual inspection and trachea midline Respiratory: normal respiratory effort; no respiratory distress Auscultation: no crackles and no wheezes upper airway congestion Cardiovascular: Rate/Rhythm: regular rate and regular rhythm Gastrointestinal (Abdomen): Inspection/Auscultation: abdomen not distended Percussion/Palpation: abdomen soft; abdomen nontender Musculoskeletal: + 1 EDEMA, peripheral pulses intact Skin: L heel with redness and warm to touch Nonbleeding, nonpurulent Neurologic: awake; not confused Speech / Cognition: normal speech Psychiatric: A+Ox3, euthymic affect
[2019-01-14] MEDS: LEVALBUTEROL 1.25MG/0.5ML NEB INH SCH ×3 (01:54→13:57)
[2019-01-14] MEDS: IPRATROPIUM BROMIDE NEB SOLN 0.02% 2.5 ML VIAL INH SCH ×3 (01:54→13:57)
[2019-01-14] MEDS: methylPREDNISolone 60 MG in SYRINGE 0 ML IV SCH (03:48)
[2019-01-14 05:55] LABS: Hematocrit (blood only) 34.5 % (42-52); Hemoglobin 11.6 g/dL (14.0-18.0); Immature Granulocytes # (auto) 0.09 K/uL (0.00-0.02); Immature Granulocytes % (auto) 0.5 %; Lymphocytes # (auto) 0.32 K/uL (1.2-3.4); Lymphocytes % (auto) 1.8 %; Mean Corpuscular Hgb Conc 33.6 g/dL (32-36); Mean Corpuscular Volume 100.3 fL (80-100); Mean Platelet Volume 9.6 fL (7.4-10.4); Monocytes # (auto) 0.53 K/uL (0.11-0.59); Neutrophils # (auto) 16.68 K/uL (1.4-6.5); Neutrophils % (auto) 94.7 %; Platelet Count 265 K/uL (130-400); RDW Coefficient of Variation 15.5 % (11.5-14.5); RDW Standard Deviation 56.6 fL (36.4-46.3); Red Blood Count 3.44 M/uL (4.7-6.1); White Blood Count 17.62 K/uL (4.8-10.8)
[2019-01-14 06:34] LABS: Albumin Level 2.4 gm/dl (3.4-5.0); BUN Creatinine Ratio 41.5 (10-20); Calcium 8.5 mg/dl (8.5-10.1); Creatinine Clr Calc Pharmacy 31.6 ml/min; Est GFR (African American) 57.4; Est GFR (Non-African American) 49.5; Phosphorus 3.2 mg/dl (2.5-4.9); Potassium 4.5 mmol/L (3.5-5.1)
[2019-01-14] MEDS: ACETYLCYSTEINE 20% INHAL SOLN ***DISPENSED BY RESP. INH SCH (07:12)
[2019-01-14] MEDS: MOMETASONE/FORMOTEROL INH SCH (07:45)
[2019-01-14] MEDS: APIXABAN 2.5 MG TAB PO SCH (07:46)
[2019-01-14] MEDS: cephALEXin 500 MG CAP PO SCH (07:46)
[2019-01-14] MEDS: CHOLECALCIFEROL 1,000 UNITS TAB PO SCH (07:46)
[2019-01-14] MEDS: ASPIRIN 81 MG ECTAB PO SCH (07:46)
[2019-01-14] MEDS: NICOTINE 14 MG/24 HR PATCH TD SCH (07:47)
[2019-01-14] MEDS: LISINOPRIL 20 MG TAB PO SCH (07:47)
[2019-01-14] MEDS: MONTELUKAST SODIUM 10 MG TABLET PO SCH (07:47)
[2019-01-14] MEDS: predniSONE 10 MG TABLET PO SCH (07:48)
[2019-01-14] MEDS: METOPROLOL SUCC 50MG EXT REL TAB PO SCH (07:48)
[2019-01-14] MEDS: TIOTROPIUM BROMIDE 5 PUFF/90 MCG INH INH SCH (07:48)
[2019-01-14] MEDS: guaiFENesin 600 MG TABCR PO SCH (07:48)
[2019-01-14] MEDS: POLYETHYLENE (MIRALAX) 17 GM PACK PO SCH (07:49)
[2019-01-14] MEDS ORDERED: DUTASTERIDE PO SCH (09:00)
[2019-01-14] MEDS ORDERED: AMOXICILLIN/CLAVULANATE 875 MG TAB PO ONE (09:01)
--- NOTE | 2019-01-14 14:12 | Fluoroscopy Report ---
FL video swallow HISTORY: Dysphagia assess for aspiration TECHNIQUE: Video fluoroscopic evaluation of swallowing was performed in the AP and lateral projection s by the speech pathology staff. The patient is fed nectar-thick and thin liquid barium, a barium coa nestor wafer, and barium pudding. FLUOROSCOPY TIME: 2.6 minutes NUMBER OF FLUOROSCOPIC IMAGES: 768 COMPARISON STUDY: None. FINDINGS: Evidence for significant hypopharyngeal dysmotility. Swallowing function is disordered. No significant aspiration. There is small amount of penetration. IMPRESSION: 1. 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 2. Trace intermittent penetration with no evidence for tej aspiration. 3. Moderate esophageal spasm. IMPRESSION: 1. No aspiration identified. 2. Please see the speech pathologist report for detailed findings and recommendations. The above report was generated using voice recognition software. It may contain grammatical, syntax or spelling errors. Electronically signed by: Derrek Watkins M.D. 01/14/2019 2:11 PM
[2019-01-14] MEDS ORDERED: SOD PHOSPHATE/SOD BIPHOSPHATE ENEMA 132 ML BTL PR STA (16:04)
[2019-01-14] MEDS ORDERED: AMOXICILLIN/CLAVULANATE 875 MG TAB PO SCH (17:00)
--- NOTE | 2019-01-22 07:17 | Discharge Summary ---
Date of Service January 14, 2019 Admission HPI Per Admitting Provider 83 y/o M c/o LE swelling. Daughter states that pt has been having SOB for the last few months with an ongoing cough and congestion. He was being seen by his PCP on Friday for this. He was changed to singular after the SWITCH HOUSE OPERATOR spoke with pt's pulm XAVIER Mcdaniel. During the exam, PCP noted that had some very slight LE swelling. This had not been noted by pt or family. She gave 3 days worth of lasix. Daughter states that her niece is an aide and helps pt with bathing, etc. She came to see pt today and his LE swelling was much worse. It was also noted that he has an ulceration on his heel. Pt stated he had not taken off his socks for 2 days. Daughter states that pt is on eliquis and that this has made him very easy to bruise/bleed. Pt states he feels like he has to bring up something but just cannot get it loose. He feels his SOB is not getting worse, just not getting better. He states that his LE swelling was only just noted by himself today. L heel ulceration was there last week, but much smaller. He states he hit his heel at one point last week. Pt denies fever, chest pain, abd pain, n/v. Pt has been constipated. He tried miralax and senna with no relief. Pt has been having issues sleeping. He has been taking melatonin HS but no help. He feels that he will need something "for my nerves" tonight. Pt has been on a steroid taper. Today was the last day of 30mg. Tomorrow he is to take 20mg x4 days, then 15mg x4 days. Daughter states that as soon as they try to d/c steroids his SOB gets worse. He has also been using nebs 3-4x/day. Principal Diagnosis Aspiration Pneumonia Discharge Exam Constitutional: WD/WN, vitals as above Eyes: normal visual humphrey by confrontation and + anicteric sclerae Neck: normal visual inspection and trachea midline Respiratory: normal respiratory effort; no respiratory distress Auscultation: no crackles and no wheezes upper airway congestion Cardiovascular: Rate/Rhythm: regular rate and regular rhythm Gastrointestinal (Abdomen): Inspection/Auscultation: abdomen not distended Percussion/Palpation: abdomen soft; abdomen nontender Musculoskeletal: + 1 EDEMA, peripheral pulses intact Skin: L heel with minimal redness and warm to touch Nonbleeding, nonpurulent Neurologic: awake; not confused Speech / Cognition: normal speech Psychiatric: A+Ox3, euthymic affect Discharge Data Allergies Allergy/AdvReac Type Severity Reaction Status Date / Time cilostazol Allergy Unknown dizziness, Verified 01/11/19 14:11 palpitations diltiazem Allergy Unknown diziness, Verified 01/11/19 14:11 palpitations simvastatin AdvReac Unknown dizziness Verified 01/11/19 14:11 Consultations 01/11/19 17:45 ED Decision to Admit Stat 01/11/19 19:49 Consult Case Management - Discharge Planning Routine Ordered Studies 01/11/19 16:24 US venous doppler LE BI Stat 01/13/19 15:03 CT chest wo con Routine 01/14/19 14:00 FL video swallow Routine Hospital Course (1) Bilateral lower extremity edema: New issue ECHO 07/2018 with EF 55-60% Will repeat given new issue New echo was limited but did not show any left ventricle abnormalities. The reports doers state that the images were poor and the EF was low normal. X-RAY does show some opacities, however clinically patient appears to be improving from his diuresis. Will obtain CT scan of Lung. Patient was likely overloaded and complicated by his CKD but improved with diuresis. WBC however is elevated. Will recheck WBC in AM. Depending on images will may start antibiotics. He is however tacycardic but this can be explained by the albuterol, will switch to xopenex. CXR neg Lasix 20mg IV in the ED, will hold off further diuretics for now and monitor. Patient is improving and is negative. On day of discharge, patient HR improved. Patient did not meet criteria for home oxygen. (2) Ulceration: Appears to have cellulitis Keflex WCC This appears to have improved. (3) Abnormal EKG: New L posterior fascicular block noted ECHO complete Trop neg x3 (4) Paroxysmal atrial fibrillation: continue home meds Eliquis Tachycardic, ay be worsened by albuterol, will switch to levalbuterol. Follows with Dia Galvan if needed On 4/10 HR appears better controlled will monitor. (5) Hyperlipidemia: continue home meds (6) Hypertension: continue home meds (7) BPH (benign prostatic hyperplasia): continue home meds (8) Chronic obstructive pulmonary disease: continue home meds Continue with steroid taper. currently on methlyprednisolone Nebs Add mucomyst Follows with Jesus Manuel Mcdaniel if needed (9) Tobacco use disorder: Nicotine patch (10) Chronic kidney disease, stage 3: GFR: 58.5 will monitor GFR. (11) Patient underweight: Underweight, BMI 16.6 kg/m*m (12) Compression fracture of T6 vertebra: Found on ct scan of chesr. will defer osteoporosis treatment to PCP. (13) Aspiration pneumonia: Patient found to have aspiration pneumonia. Patient will be discharged on augmentin to complete treatment. Regular slipperty diet prescrribe. Patient found to have esophageal dysfunction. Will recommend GI followup. (14) DVT prophylaxis: Eliquis D/W with family Total Time Total Time Spent Total Time Spent (In Minutes): 40 Total Time Includes: Examination of the Patient, Discharge Planning and Medication Reconciliation Discharge Plan Discharge Items Patient Disposition: Home - Home Health Services Reason For Visit: LE EDEMA Discharge Diagnosis: Lower leg edema Discharge Goals: Decrease discomfort and Improve disease control Activity: Resume your previous activity Non-emergency contact: Primary Care Provider Call non-emergency contact if: you have any medication questions Follow-up/Referrals: Guy Mcdaniel PA-C [Physician Case Manager] - 01/21/19 1:45 pm (Please, follow up at [facility] with Jesus Manuel Mcdaniel PA-C on January 21 at 1:45 pm. *This office is located in [address] of [facility] next to the [facility]. If you need to change this appointment, call the office at [phone].) Guerrero Morse MD [Primary Care Provider] - 01/18/19 2:00 pm (Please, follow up at Dr. Morse's office with her associate, Fatmata BECERRIL, on FridayJanuary 18 at 2:00 pm. *If you need to change this appointment, call the office at [phone].) Johnna Alcantar CRNP [Nurse Practitioner] - 01/25/19 2:30 pm (folow up appointment with the oil gauger provider) Diet: Heart Healthy [facility] Provider Instructions: You were seen for lower extremity swelling and aspiration pneumonia. You will be discharged on an antibiotic. Will recommend f/u with PCP, gastro and pulmonary. Prescriptions: New amoxicillin-pot clavulanate 875-125 mg Tablet 1 tab PO BIDM Qty: 13 RF: 0 levalbuterol tartrate 45 mcg/actuation HFA aerosol inhaler 1 inha INH Q6H PRN (Reason: shortness of breath) Qty: 15 RF: 0 prednisone 10 mg Tablet 15 mg PO QAM Qty: 21 RF: 0 nicotine [Nicoderm CQ] 14 mg/24 hr Patch 24 Hour 14 mg transdermal QAM Qty: 30 RF: 0 furosemide 40 mg tablet 40 mg PO DAILY PRN (Reason: weight gain) Qty: 10 RF: 0 potassium chloride 10 mEq capsule, extended release 10 meq PO DAILY PRN (Reason: take with furosemide/lasix ) Qty: 10 RF: 0 Continued ipratropium-albuterol 0.5 mg-3 mg(2.5 mg base)/3 mL solution for nebulization 3 ml Inhalation QID RF: 0 metoprolol succinate 50 mg tablet extended release 24 hr 50 mg PO DAILY RF: 0 cholecalciferol (vitamin D3) [Vitamin D3] 2,000 unit Capsule 2,000 units PO DAILY RF: 0 apixaban 2.5 mg tablet 2.5 mg PO BID RF: 0 guaifenesin [Mucinex] 600 mg Tablet Extended Release 12hr 1,200 mg PO Q12 RF: 0 montelukast 10 mg tablet 10 mg PO DAILY RF: 0 benzonatate 100 mg Capsule 100 mg PO TID RF: 0 polyethylene glycol 3350 [Purelax] 17 gram/dose Powder 17 g PO DAILY RF: 0 acetaminophen 325 mg Tablet 650 mg PO DIRECTED PRN (Reason: Fever Or Pain) RF: 0 lisinopril 20 mg tablet 20 mg PO DAILY RF: 0 aspirin 81 mg Tablet,Delayed Release (Dr/Ec) 81 mg PO DAILY RF: 0 tiotropium bromide 18 mcg capsule, w/inhalation device 1 cap Inhalation DAILY RF: 0 sennosides-docusate sodium [Senna Plus] 8.6-50 mg tablet 1 tab PO BID PRN (Reason: Constipation) RF: 0 benzonatate 100 mg capsule 100 mg PO QPM PRN (Reason: Cough) RF: 0 dutasteride 0.5 mg capsule 0.5 mg PO DAILY RF: 0 Dulera 200-5 mcg/actuation HFA aerosol inhaler 2 puff Inhalation BID RF: 0 Discontinued prednisone 10 mg Tablet 10 mg PO DIRECTED RF: 0 albuterol sulfate 90 mcg/actuation HFA aerosol inhaler 2 puff Inhalation QID PRN (Reason: Shortness Of Breath) RF: 0 Stand-Alone Forms: [facility]/Other Patient Handouts: Benzonatate Oral capsule liquid filled, Amoxicillin Trihydrate Oral tablet, Nicotine Transdermal patch - 24 hour, Prednisone Oral tablet, Furosemide Oral tablet, COPD, Potassium, Breathing Controlled Dc, Coughing Techniques Dc Discharge Orders: Discharge Order (Routine); Ordered 01/14/19 Ordered By: Villa Marquez Admission Data Admit Date/Time: 01/11/19 18:50 Attending Provider: Villa Marquez Admit Provider: Arianne Riley Primary Care Provider: Guerrero Morse Other Providers: Arianne Riley Service: Telemetry Other Interventions: Discharge Summary Assessment (RN) Last Done: 01/14/19 16:55 DC Date/Time DO NOT enter until pt leaves facility: 01/14/19 18:06
--- NOTE | 2019-01-23 07:47 | Coding Query ---
CODING QUERY To promote full compliance with coding requirements relating to patient care, provider participation is requested in all cases of pianos and organs salesperson uncertainty. Please assist us with the question(s) below: Coding Question(s): Patient admitted with bilateral edema of legs with nonhealing ulcer right heel. Progress note " patient likely overloaded and due to CKD. . Please document , if known or suspected, the etiology of the bilateral leg edema. Thanks for your help! Jose Rutledge [facility] Physician's Response(s): Patient had aspiration pneumonia. Patient also had lower extremity edema complicated by his CKD, caused by paient non-compliance. Principal Diagnosis: "that condition established after study, to be chiefly responsible for occasioning the admission of the patient to the hospital for care." Co-Existing Principal Diagnosis: "when two or more diagnoses equally meet the criteria for principal diagnosis as determined by the circumstances of admission, diagnostic work up, and/or therapy provided, and the Alphabetic Index, Tabular List, or another coding guideline does not provide sequencing direction, any one of the diagnoses may be sequenced first." "When the physician has documented what appears to be a current diagnosis in the body of the record, but has not included the diagnosis in the final diagnostic statement, the physician should be asked whether the diagnosis should be added." (Source Coding [facility] 2 QTR90. p3-4) LAST
== END 2019-01-14 18:06 | disposition home health service (06) | DRG 291 ==
LOC: ED 13:54 → SUATTDRO 18:50 → 2E 18:50

== ENCOUNTER 2019-03-08 15:58 | Inpatient (IN) ==
[2019-03-08 17:24] LABS: Basophils # (auto) 0.01 K/uL (0-0.2); Basophils % (auto) 0.1 %; Hematocrit (blood only) 41.6 % (42-52); Hemoglobin 13.9 g/dL (14.0-18.0); Immature Granulocytes # (auto) 0.03 K/uL (0.00-0.02); Immature Granulocytes % (auto) 0.3 %; Lymphocytes # (auto) 0.76 K/uL (1.2-3.4); Lymphocytes % (auto) 8.4 %; Mean Corpuscular Hgb Conc 33.4 g/dL (32-36); Mean Platelet Volume 9.4 fL (7.4-10.4); Monocytes # (auto) 0.47 K/uL (0.11-0.59); Monocytes % (auto) 5.2 %; Neutrophils # (auto) 7.83 K/uL (1.4-6.5); Platelet Count 293 K/uL (130-400); RDW Coefficient of Variation 15.4 % (11.5-14.5); RDW Standard Deviation 58.2 fL (36.4-46.3); Red Blood Count 4.04 M/uL (4.7-6.1)
[2019-03-08 17:36] LABS: INR 1.1 (0.9-1.1); Prothrombin Time 10.9 Seconds (9.0-12.0)
[2019-03-08 17:38] LABS: Appearance Urine Clear (Clear); Bilirubin Urine Negative (Negative); Blood Urine 3+ (Negative); Color Urine Yellow; Glucose Urine UA Negative (Negative); Ketones Urine Negative (Negative); Leukocyte Esterase Urine Negative (Negative); Nitrite Urine Negative (Negative); Protein Urine 2+ (Negative); Urobilinogen Urine Negative (Negative)
[2019-03-08 17:39] LABS: Ictotest Urine Negative (Negative)
[2019-03-08 17:41] LABS: RBC Urine >30 /hpf (0-4)
[2019-03-08 17:42] LABS: WBC Urine >30 /hpf (0-5)
[2019-03-08 17:43] LABS: Bacteria Urine 2+ (Negative); Epithelial Cell Urine 0-5 /lpf (0-5)
[2019-03-08 17:53] LABS: Albumin Level 3.6 gm/dl (3.4-5.0); BUN Creatinine Ratio 19.7 (10-20); Calcium 9.6 mg/dl (8.5-10.1); Creatinine Clr Calc Pharmacy 35.1 ml/min; Est GFR (African American) 67.8; Est GFR (Non-African American) 58.5; Potassium 4.7 mmol/L (3.5-5.1)
[2019-03-08 17:55] LABS: Bilirubin,Total 0.3 mg/dl (0.2-1); Globulin 3.5 gm/dl (2.5-4.0); Total Protein 7.1 gm/dl (6.4-8.2)
--- NOTE | 2019-03-08 18:07 | CT Scan Report ---
CT SCAN OF THE ABDOMEN AND PELVIS WITHOUT IV CONTRAST CLINICAL HISTORY: Hematuria. COMPARISON STUDY: Abdominal CT dated 09/13/2018. TECHNIQUE: CT scan of the abdomen and pelvis is performed from the lung bases to the proximal femora. Images are reviewed in the axial, sagittal, and coronal planes. IV contrast was not administered for this examination as per the referring clinician. A dose lowering technique was utilized adhering to the principles of ALARA. The examination is compromised by motion artifact. CT DOSE: 252.53 mGy.cm FINDINGS: Lung bases: The heart is top normal in size and without pericardial effusion. The coronary arteries a re densely calcified. Advanced and edematous change is present at both lung bases. Patchy airspace op acities are seen at the right lung base. There is bibasilar scarring/atelectasis. No pleural effusion is identified. There is a small hiatal hernia. Liver: The unenhanced liver is normal in size, contour, and attenuation. There is no intrahepatic ed iary ductal dilatation. There are scattered calcified hepatic granulomas. Gallbladder: Mildly distended but otherwise normal in appearance.. Spleen: Normal in size and attenuation. There are numerous calcified splenic granulomas. Pancreas: The unenhanced pancreas is moderately atrophic and grossly unremarkable. Adrenal glands: Unremarkable. Kidneys: The unenhanced kidneys demonstrate cortical atrophy. There is a 15 mm calculus identified at the right ureteropelvic junction, best seen on image #163. This causes mild right hydronephrosis. Th ere are at least 3 additional nonobstructing right renal calculi. No left renal calculi are clearly i dentified and there is no left-sided hydronephrosis. Renovascular calcifications are observed. An ext rarenal pelvis is again seen on the left. There is no evidence of contour deforming renal mass lesion . There is nonspecific bilateral perinephric extending. There is trace fluid around the right kidney which tracks along the paracolic gutter. Abdominal vasculature: There is advanced atherosclerotic calcification and mild ectasia of the abdomi nal aorta. Bowel: The small bowel and colon are normal in course and caliber. The appendix is not identified an d reported surgically absent Peritoneum: There is no intraperitoneal free air or abdominal ascites. Lymphadenopathy: None. Pelvic viscera: The bladder is markedly distended. The bladder wall is thickened and trabeculated ind icating chronic outlet obstruction. The prostate gland is enlarged and heterogeneous noting median lo be hypertrophy. Skeletal structures: The skeletal structures are osteopenic. There is a moderate chronic superior end plate compression deformity of L3. Lumbosacral spondylosis is noted. No lytic or blastic lesions are seen. IMPRESSION: 1. There is a 15 mm calculus at the right ureteropelvic junction which causes mild right hydronephros is. 2. There is right-sided perinephric fluid which tracks inferiorly along the paracolic gutter. 3. Additional nonobstructing right renal calculi as above. 4. Marked bladder distention with prostatomegaly and evidence of chronic bladder outlet obstruction. 5. Advanced emphysema. 6. Mild patchy airspace opacities are seen at the right lung base. This could represent atelectasis/s carring versus a mild infectious/inflammatory pneumonitis. Clinical correlation will be required. 7. Additional findings as above. Electronically signed by: Vidal Love M.D. 03/08/2019 6:06 PM
[2019-03-08] MEDS ORDERED: cefTRIAXone SODIUM 1,000 MG/50 ML BAG IV STA (20:14)
[2019-03-08] MEDS ORDERED: ALBUTEROL 0.083% NEBU SOLN 3 ML VIAL NEB STA (21:18)
[2019-03-08] MEDS ORDERED: BENZONATATE 100 MG CAPSULE PO PRN (21:19)
[2019-03-08] MEDS ORDERED: FUROSEMIDE 40 MG TAB PO PRN (21:19)
--- NOTE | 2019-03-08 21:52 | History & Physical Report ---
Date of Service March 08, 2019 Assessment & Plan (1) Nephrolithiasis: 83 yo M PMH BPH, CKDIII, COPD, Afib, HTN admitted 03/08/19 for right-sided renal calculus with hydronephrosis in setting of chronic bladder outlet obstruction. Hydronephrosis/Neprholithiasis/UTI/BPH -Urology consulted, appreciate input -NPO from midnight for further eval by uro -Urine strain -Hold eliquis -Ceftriaxone for susptected UTI -IVF NSS at 80/hr -Cont home BPH meds (avodart) COPD -Continue home symbitcort, benzonatate, prednisone, montelukast, ventolin nebs Afib -Pt on eliquis at home, held for possible procedure -Cont home metoprolol succ 50 HTN -metoprolol and lisinopril -lasix prn for edema Chronic peripheral edema -Pt uses prn lasix 1-2 times per week with K+ -trace edema currently. monitor CKD III -appears stable. monitor Chronic diastolic CHF -Stable, lasix as above, antihypertensives as above Pt underweight -Has had speech eval on prev admission and passed -Nutrition consult -Pt lives at home with home help, has supportive family Code: Full no mechanical DVTP: eliquis on hold for potential procedure dispo: MSO (2) Hydronephrosis: (3) UTI (urinary tract infection): (4) BPH (benign prostatic hyperplasia): (5) Chronic obstructive pulmonary disease: (6) Paroxysmal atrial fibrillation: (7) Hypertension: (8) Patient underweight: (9) Bilateral lower extremity edema: (10) Chronic diastolic heart failure: (11) Chronic kidney disease, stage 3: History of Present Illness Chief Complaint: Hematuria Primary Care Provider: Mateo Morse MD Patient is a pleasant 83yo M PMH CKD III, BPH, nephrolithiasis, Chronic diastolic CHF, pAF, HTN, HLD, COPD who presents with hematuria. He notes he has chronic hematuria due to his chronic issues, and had started having hematuria last week, for which he called his urologist and gotten an antibiotic (which he says he does regularly). Usually the antibiotics stop the hematuria, and said that for a few days the bleeding did stop, but he was at the tail end the antibiotic course over the weekend and the bleeding resumed, which was concerning to him. He denies any other symptoms such as flank pain, suprapubic pain, fevers, chills, dysuria, nausea, vomiting. Investigation in the ER revealed normal WBC, normal BMP, normal LFTs. UA showed chronic 3+blood, >30RBC, >30 WBC 2+bacteria. CT abdomen/pelvis revealed R-sided 15mm calculus at R UP junction with mild hydronephrosis and perinephric fluid. Also showed chronic bladder outlet obstruction with bladder distension and advanced emphysema. Urology was consulted by ED staff who recommended admission, ceftriaxone, NPO from midnight and will evaluate in the AM for possible stenting. Allergies Allergy/AdvReac Type Severity Reaction Status Date / Time cilostazol Allergy Unknown dizziness, Verified 01/11/19 14:11 palpitations diltiazem Allergy Unknown diziness, Verified 01/11/19 14:11 palpitations simvastatin AdvReac Unknown dizziness Verified 01/11/19 14:11 Home Medications Home Medications Medication Instructions Recorded Confirmed Type acetaminophen 650 mg PO DIRECTED PRN 07/26/18 03/08/19 History lisinopril 20 mg PO DAILY 07/26/18 03/08/19 History tiotropium bromide 1 cap INHALATION DAILY 07/26/18 03/08/19 History apixaban 2.5 mg PO BID 09/13/18 03/08/19 History cholecalciferol (vitamin D3) 2,000 units PO DAILY 09/13/18 03/08/19 History [Vitamin D3] guaifenesin [Mucinex] 1,200 mg PO Q12 09/13/18 03/08/19 History ipratropium-albuterol 3 ml INHALATION QID 09/13/18 03/08/19 History metoprolol succinate 50 mg PO DAILY 09/13/18 03/08/19 History Dulera 2 puff INHALATION BID 12/14/18 03/08/19 History benzonatate 100 mg PO QPM PRN 12/14/18 03/08/19 History dutasteride 0.5 mg PO DAILY 12/14/18 03/08/19 History sennosides-docusate sodium [Senna 1 tab PO BID PRN 12/14/18 03/08/19 History Plus] montelukast 10 mg PO DAILY 01/11/19 03/08/19 History polyethylene glycol 3350 [Purelax] 17 g PO DAILY PRN 01/11/19 03/08/19 History furosemide 40 mg PO DAILY PRN #10 tab 01/14/19 03/08/19 Rx levalbuterol tartrate 1 inha INH Q6H PRN #15 gm 01/14/19 03/08/19 Rx potassium chloride 10 meq PO DAILY PRN #10 cap 01/14/19 03/08/19 Rx prednisone 15 mg PO QAM #21 tab 01/14/19 03/08/19 Rx Past Med/Surg History Medical History Chronic diastolic heart failure Paroxysmal atrial fibrillation Tachycardia Hyperlipidemia Hypertension Hypoxia (Acute) COPD exacerbation (Acute) Chronic obstructive pulmonary disease (Acute) Acute dehydration (Inactive) Asthma Enlarged prostate Hx of renal calculi Hypertension Leukocytosis Social History Preferred Language: Hebrew Communication Ability: Effective Action Finisher Required: No Beliefs That Will Affect Care: None marital status: Current Living Situation: Spouse Other Information That Helps Us Care for You: No Feels Safe at Home: Yes Safety Concerns: Feels Safe At This Time Smoking Status: Current every day smoker Tobacco Type: cigarettes Cigarettes Per Day: a pack per day Do You Dip or Chew Tobacco: No Second Hand Exposure: No Tobacco Cessation Education Requested by Patient: No Hx Alcohol Use: No Hx Substance Use: No Review of Systems Review of Systems: All systems reviewed & are unremarkable except as noted in HPI & below Constitutional: + weakness Respiratory: + cough, + chest congestion, + dyspnea, + dyspnea on exertion and + sputum production; no hemoptysis Cardiovascular: + dyspnea, + dyspnea at rest, + dyspnea on exertion and + edema (on and off); no chest pain and no radiating jaw, neck or arm pain Gastrointestinal: no abdominal pain, no nausea and no vomiting Genitourinary: + difficulty urinating, + urinary hesitancy, + post-void d ribbling and + hematuria; no dysuria and no flank pain Integumentary: + lesions Neurologic: no dizziness and no syncope Physical Exam Constitutional: + well hydrated, + thin, + frail appearing, cooperative, comfortable and + underweight; no acute distress and not ill appearing Eyes: PERRL, conjunctivae normal, anicteric sclerae ENMT: external ear and nose normal, oropharynx normal Neck: normal visual inspection Respiratory: normal respiratory effort and + cough; no respiratory distress and no labored breathing Auscultation: + wheezes (diffusely, expiratory) Cardiovascular: Rate/Rhythm: + tachycardic and + irregularly irregular Heart Sounds: no murmur Vessels: normal peripheral pulses Extremities: + pedal edema (trace) Gastrointestinal (Abdomen): normal bowel sounds, soft, nontender, no hepatosplenomegaly Musculoskeletal: no cyanosis or clubbing, extremities motor strength 5/5 Skin: no rashes, warm and dry Neurologic: PERRL, EOMI, accommodation nl, no face palsy, no dysarthria Psychiatric: A+Ox3, euthymic affect Results & Data Vital Signs (Past 12 Hours) Vital Signs Temp Pulse Pulse Resp BP BP Pulse Ox 03/08/19 20:31 94 H 18 159/110 H 94 03/08/19 18:30 83 25 H 03/08/19 18:26 86 26 H 148/85 H 03/08/19 18:24 94 03/08/19 17:14 83 22 03/08/19 15:59 36.6 C 83 20 145/82 H 98 Laboratory Results 03/08/19 03/08/19 03/08/19 Range/Units 17:25 17:05 17:05 WBC (4.8-10.8) K/uL RBC (4.7-6.1) M/uL Hgb (14.0-18.0) g/dL Hct (42-52) % MCV (80-100) fL MCH (25-34) pg MCHC (32-36) g/dL RDW Std Deviation (36.4-46.3) fL RDW Coeff of Ashley (11.5-14.5) % Plt Count (130-400) K/uL MPV (7.4-10.4) fL Immature Gran % (Auto) % Neut % (Auto) % Lymph % (Auto) % Toole % (Auto) % Eos % (Auto) % Baso % (Auto) % Immature Gran # (Auto) (0.00-0.02) K/uL Neut # (Auto) (1.4-6.5) K/uL Lymph # (Auto) (1.2-3.4) K/uL Toole # (Auto) (0.11-0.59) K/uL Eos # (Auto) (0-0.5) K/uL Baso # (Auto) (0-0.2) K/uL PT 10.9 (9.0-12.0) Seconds INR 1.1 (0.9-1.1) APTT 26.0 (21.0-31.0) Seconds PTT Ratio 1.0 Sodium 137 (136-145) mmol/L Potassium 4.7 (3.5-5.1) mmol/L Chloride 104 (98-107) mmol/L Carbon Dioxide 29 (21-32) mmol/L Anion Gap 4.0 (3-11) BUN 23 H (7-18) mg/dl Creatinine 1.15 (0.6-1.4) mg/dl Est Cr Clr Drug Dosing 35.1 ml/min Est GFR ( Amer) 67.8 Est GFR (Non-Af Amer) 58.5 BUN/Creatinine Ratio 19.7 (10-20) Glucose 101 H (70-99) mg/dl Calcium 9.6 (8.5-10.1) mg/dl Total Bilirubin 0.3 (0.2-1) mg/dl AST 15 (15-37) U/L ALT 17 (12-78) U/L Alkaline Phosphatase 107 (45-117) U/L Total Protein 7.1 (6.4-8.2) gm/dl Albumin 3.6 (3.4-5.0) gm/dl Globulin 3.5 (2.5-4.0) gm/dl Albumin/Globulin Ratio 1.0 (0.9-2) Lipase 85 (73-393) U/L Urine Color Yellow Urine Appearance Clear (Clear) Urine pH 6.0 (4.5-7.5) Ur Specific [place] 1.020 (1.000-1.030) Urine Protein 2+ H (Negative) Urine Glucose (UA) Negative (Negative) Urine Ketones Negative (Negative) Urine Blood 3+ H (Negative) Urine Nitrite Negative (Negative) Urine Bilirubin Negative (Negative) Urine Urobilinogen Negative (Negative) Ur Leukocyte Esterase Negative (Negative) Urine RBC >30 H (0-4) /hpf Urine WBC >30 H (0-5) /hpf Ur Epithelial Cells 0-5 (0-5) /lpf Urine Bacteria 2+ H (Negative) 03/08/19 Range/Units 17:05 WBC 9.10 (4.8-10.8) K/uL RBC 4.04 L (4.7-6.1) M/uL Hgb 13.9 L (14.0-18.0) g/dL Hct 41.6 L (42-52) % MCV 103.0 H (80-100) fL MCH 34.4 H (25-34) pg MCHC 33.4 (32-36) g/dL RDW Std Deviation 58.2 H (36.4-46.3) fL RDW Coeff of Ashley 15.4 H (11.5-14.5) % Plt Count 293 (130-400) K/uL MPV 9.4 (7.4-10.4) fL Immature Gran % (Auto) 0.3 % Neut % (Auto) 86.0 % Lymph % (Auto) 8.4 % Toole % (Auto) 5.2 % Eos % (Auto) 0.0 % Baso % (Auto) 0.1 % Immature Gran # (Auto) 0.03 H (0.00-0.02) K/uL Neut # (Auto) 7.83 H (1.4-6.5) K/uL Lymph # (Auto) 0.76 L (1.2-3.4) K/uL Toole # (Auto) 0.47 (0.11-0.59) K/uL Eos # (Auto) 0.00 (0-0.5) K/uL Baso # (Auto) 0.01 (0-0.2) K/uL PT (9.0-12.0) Seconds INR (0.9-1.1) APTT (21.0-31.0) Seconds PTT Ratio Sodium (136-145) mmol/L Potassium (3.5-5.1) mmol/L Chloride (98-107) mmol/L Carbon Dioxide (21-32) mmol/L Anion Gap (3-11) BUN (7-18) mg/dl Creatinine (0.6-1.4) mg/dl Est Cr Clr Drug Dosing ml/min Est GFR ( Amer) Est GFR (Non-Af Amer) BUN/Creatinine Ratio (10-20) Glucose (70-99) mg/dl Calcium (8.5-10.1) mg/dl Total Bilirubin (0.2-1) mg/dl AST (15-37) U/L ALT (12-78) U/L Alkaline Phosphatase (45-117) U/L Total Protein (6.4-8.2) gm/dl Albumin (3.4-5.0) gm/dl Globulin (2.5-4.0) gm/dl Albumin/Globulin Ratio (0.9-2) Lipase (73-393) U/L Urine Color Urine Appearance (Clear) Urine pH (4.5-7.5) Ur Specific [place] (1.000-1.030) Urine Protein (Negative) Urine Glucose (UA) (Negative) Urine Ketones (Negative) Urine Blood (Negative) Urine Nitrite (Negative) Urine Bilirubin (Negative) Urine Urobilinogen (Negative) Ur Leukocyte Esterase (Negative) Urine RBC (0-4) /hpf Urine WBC (0-5) /hpf Ur Epithelial Cells (0-5) /lpf Urine Bacteria (Negative) Diagnostic Findings CT SCAN OF THE ABDOMEN AND PELVIS WITHOUT IV CONTRAST CLINICAL HISTORY: Hematuria. COMPARISON STUDY: Abdominal CT dated 09/13/2018. TECHNIQUE: CT scan of the abdomen and pelvis is performed from the lung bases to the proximal femora. Images are reviewed in the axial, sagittal, and coronal planes. IV contrast was not administered for this examination as per the referring clinician. A dose lowering technique was utilized adhering to the principles of ALARA. The examination is compromised by motion artifact. CT DOSE: 252.53 mGy.cm FINDINGS: Lung bases: The heart is top normal in size and without pericardial effusion. The coronary arteries are densely calcified. Advanced and edematous change is present at both lung bases. Patchy airspace opacities are seen at the right lung base. There is bibasilar scarring/atelectasis. No pleural effusion is identified. There is a small hiatal hernia. Liver: The unenhanced liver is normal in size, contour, and attenuation. There is no intrahepatic biliary ductal dilatation. There are scattered calcified hepatic granulomas. Gallbladder: Mildly distended but otherwise normal in appearance.. Spleen: Normal in size and attenuation. There are numerous calcified splenic granulomas. Pancreas: The unenhanced pancreas is moderately atrophic and grossly unremarkable. Adrenal glands: Unremarkable. Kidneys: The unenhanced kidneys demonstrate cortical atrophy. There is a 15 mm calculus identified at the right ureteropelvic junction, best seen on image #163. This causes mild right hydronephrosis. There are at least 3 additional nonobstructing right renal calculi. No left renal calculi are clearly identified and there is no left-sided hydronephrosis. Renovascular calcifications are observed. An extrarenal pelvis is again seen on the left. There is no evidence of contour deforming renal mass lesion. There is nonspecific bilateral perinephric extending. There is trace fluid around the right kidney which tracks along the paracolic gutter. Abdominal vasculature: There is advanced atherosclerotic calcification and mild ectasia of the abdominal aorta. Bowel: The small bowel and colon are normal in course and caliber. The appendix is not identified and reported surgically absent Peritoneum: There is no intraperitoneal free air or abdominal ascites. Lymphadenopathy: None. Pelvic viscera: The bladder is markedly distended. The bladder wall is thickened and trabeculated indicating chronic outlet obstruction. The prostate gland is enlarged and heterogeneous noting median lobe hypertrophy. Skeletal structures: The skeletal structures are osteopenic. There is a moderate chronic superior endplate compression deformity of L3. Lumbosacral spondylosis is noted. No lytic or blastic lesions are seen. IMPRESSION: 1. There is a 15 mm calculus at the right ureteropelvic junction which causes mild right hydronephrosis. 2. There is right-sided perinephric fluid which tracks inferiorly along the paracolic gutter. 3. Additional nonobstructing right renal calculi as above. 4. Marked bladder distention with prostatomegaly and evidence of chronic bladder outlet obstruction. 5. Advanced emphysema. 6. Mild patchy airspace opacities are seen at the right lung base. This could represent atelectasis/scarring versus a mild infectious/inflammatory pneumonitis. Clinical correlation will be required. 7. Additional findings as above. Electronically signed by: Vidal Love M.D. 03/08/2019 6:06 PM Medications Administered Current Inpatient Medications Albuterol (Duoneb) 3 ml INH QID MARS Stop: 04/08/19 08:59 Benzonatate (Tessalon Perle) 100 mg PO QPM PRN PRN Reason: Cough Stop: 04/07/19 21:18 Furosemide (Lasix) 40 mg PO DAILY PRN PRN Reason: weight gain Stop: 04/07/19 21:18 Guaifenesin (Mucinex) 1,200 mg PO Q12 MARS Stop: 04/08/19 08:59 Levalbuterol HCl (Xopenex Hfa) 1 puffs INH Q6H PRN PRN Reason: shortness of breath Stop: 04/07/19 21:18 Lisinopril (Zestril) 20 mg PO DAILY MARS Stop: 04/08/19 08:59 Metoprolol Succinate (Toprol Xl) 50 mg PO DAILY MARS Stop: 04/08/19 08:59 Miscellaneous (Order Awaiting Action) 1 ea N/A QS MARS Stop: 04/07/19 21:44 Montelukast Sodium (Singulair) 10 mg PO DAILY MARS Stop: 04/08/19 08:59 Non-Formulary Medication (Cholecalciferol (Vitamin D3) [Vitamin D3]) 2,000 units PO DAILY MARS Stop: 04/08/19 08:59 Non-Formulary Medication (Dutasteride) 0.5 mg PO DAILY MARS Stop: 04/08/19 08:59 Prednisone (Prednisone) 15 mg PO QAM MARS Stop: 04/08/19 08:59 Tiotropium [place] (Spiriva) puffs INH DAILY MARS Stop: 04/08/19 08:59 Code Status & VTE Plan Code Status FN Supervising Physician Co-Signing Physician Notes Patient seen and examined, chart reviewed, case discussed with Dr. Cifuentes and I agree with her assessment and plan as documented above. Briefly, patient is an 83yo C male with histoyr of BPH, CKD, COPD, AF and HTN presenting with 15mm right sided renal calculi with hydronephrosis. Presently with no complaints. No pain. On exam he is afebrile, hemodynamically stable, NAD HEENT: MMM Heart: +S1/S2 Lungs: CTA with scattered wheezing Abd: +BS, soft, NT/ND Ext: no edema Labs and images reviewed, some concern for UTI as well - +WBC/Bact on UA Assessment/Plan: 83yo C male with right sided renal calculis with hydronephrosis, chronic bladder outlet obstruction -Admit to medical floor -Ceftriaxone -IVF, Zofran, Pain control, strain urine -Urology consultation - appreciate assistance -Hold anticoagulation -Remainder of chronic medical management as above. Resident Activity Tracking Resident Involvement: Resident Care Provided Care Provided: Adult [facility]
[2019-03-08] MEDS ORDERED: ONDANSETRON INJ 2 MG/ML 2 ML VIAL IV PRN (22:28)
[2019-03-08] MEDS ORDERED: POLYETHYLENE (MIRALAX) 17 GM PACK PO PRN (22:28)
[2019-03-08] MEDS ORDERED: MAGNESIUM HYDROXIDE SUSP 30 ML UDC PO PRN (22:28)
[2019-03-08] MEDS ORDERED: ALUMINUM/MAGNESIUM SUSP 30 ML UDC PO PRN (22:28)
[2019-03-08] MEDS: SODIUM CHLORIDE 0.9% 1000ML 1,000 ML IV SCH (22:53)
[2019-03-08] MEDS: AVODART~ORDER AWAITING ACTION SCH (23:46)
[2019-03-08] MEDS: DULERA~ORDER AWAITING ACTION SCH (23:46)
[2019-03-08] MEDS: ACETAMINOPHEN 325 MG TAB PO PRN (23:56)
[2019-03-09] MEDS: AVODART~ORDER AWAITING ACTION SCH ×3 (00:26→17:27)
[2019-03-09] MEDS: DULERA~ORDER AWAITING ACTION SCH ×3 (00:27→17:26)
--- NOTE | 2019-03-09 01:15 | Emergency Department Note ---
Entered by Alessia Stewart acting as a scribe for Art Smallwood MD ED Provider Note CHIEF COMPLAINT: Hematuria HISTORY OF PRESENT ILLNESS: The patient is a 83 year old male who presents to the Emergency Room with complaints of hematuria that began 2 days prior to arrival. The patient denies any general pain. The patient states that he had blood in his urine 1 week prior to arrival so states that he started Augmentin 1 week prior to arrival and just ended the Augmentin 3 days prior to arrival and states the hematuria began a gain. The patient states that he continued to take his Eliquis while taking the Augmentin. The patient states that he takes Eliquis due to a history of atrial fibrillation. The patient states that he has a history of an enlarged prostate and kidney stones. Pt denies LOC, headache, fevers, chills, diaphoresis, visual changes, neck pain, chest pain, breathing difficulties, nausea, vomiting, abdominal pain, back pain, melena, hematochezia, numbness, weakness, lymphadenopathy, rash, or other complaints. REVIEW OF SYSTEMS: See HPI for pertinent positives and negatives. A total of ten systems were reviewed and were otherwise negative. PMHx/PSHx: Aspiration pneumonia Chronic kidney disease, stage 3 BPH (benign prostatic hyperplasia) DVT prophylaxis Chronic diastolic heart failure Paroxysmal atrial fibrillation Tachycardia Hyperlipidemia Hypertension COPD exacerbation SOCIAL HISTORY: Patient lives at home. Tobacco abuse disorder. PHYSICAL EXAM: GENERAL: Awake, alert, well-appearing, in no distress. HENT: Normocephalic, atraumatic. Oropharynx unremarkable. EYES: PERRL. Normal conjunctiva. Sclera non-icteric. NECK: Inspection normal. Non-tender. Supple. No nuchal rigidity. FROM. No masses. RESPIRATORY: Clear to auscultation. No wheezes. No rales. Normal respiratory effort. CARDIAC: Normal rate. Normal rhythm. No murmurs. No rubs. Extremities warm and well perfused. Pulses equal. No JVD. GI: Soft, non-distended. No tenderness to palpation. No rebound or guarding. No masses. RECTAL: Deferred. MUSCULOSKELETAL: Atraumatic. Chest examination reveals no tenderness. The back is symmetrical on inspection without obvious abnormality. There is no CVA tenderness to palpation. No joint edema. LOWER EXTREMITIES: Calves are equal size bilaterally and non-tender. No edema. No discoloration. NEURO: Normal sensorium. No sensory or motor deficits noted. SKIN: No rash or jaundice noted. EMERGENCY DEPARTMENT COURSE: 1644: Past medical records reviewed. The patient was evaluated in room C7, and a complete history and physical examination were performed. 1929: I checked on the patient and updated him on his results. 2010: I discussed the patient's care with Dr. Logan-Urology who states that to start POC at midnight and recommends that the patient be admitted. 2019: I checked on the patient and updated him on his results. The patient is agreeable to admission. 2034: I discussed the patient's case with [facility] Hospitalist who will evaluate the patient for further hospitalization. MEDICAL DECISION MAKING: Triage Nursing notes reviewed. The patient's presentation and history were concerning for hematuria. Differential includes cystitis, renal colic, prostatitis, coagulopathy, hematuria, as well as others. The patient had a urinalysis performed and there was concerns for infection. His CBC and chemistry panel were unremarkable. CT imaging reveals a 15 mm calculus in the renal pelvis with hydro-and perinephric fluid. Given his findings and Istria of hematuria that this is concerning. The patient was started on IV Rocephin. I discussed the case with Dr. Logan of urology. He agreed with the antibiotics and further management in the hospital. I discussed this with the patient and his daughter. The patient was initially reluctant but agreed to stay. The patient's daughter was very supportive of inpatient treatment. Consultation was made with the hospitalist. The patient was evaluated in the ER for further management. IMPRESSION: 15 mm right kidney stone Hydronephrosis Prostatic hypertrophy Urinary retention Possible UTI PLAN: Admit The scribe's documentation has been prepared under my direction and personally reviewed by me in its entirety. I confirm that the note above accurately reflect s all work, treatment, procedures, and medical decision making performed by me. Impression & Plan Nephrolithiasis, Hydronephrosis, UTI (urinary tract infection) Past Med/Surg History Medical History Chronic diastolic heart failure Paroxysmal atrial fibrillation Tachycardia Hyperlipidemia Hypertension Hypoxia (Acute) COPD exacerbation (Acute) Chronic obstructive pulmonary disease (Acute) Acute dehydration (Inactive) Asthma Enlarged prostate Hx of renal calculi Hypertension Leukocytosis Social History Preferred Language: Upper Sorbian Communication Ability: Effective Poultry Scalder Required: No Beliefs That Will Affect Care: None marital status: Current Living Situation: Spouse Other Information That Helps Us Care for You: No Feels Safe at Home: Yes Safety Concerns: Feels Safe At This Time Smoking Status: Current every day smoker Tobacco Type: cigarettes Cigarettes Per Day: a pack per day Do You Dip or Chew Tobacco: No Second Hand Exposure: No Tobacco Cessation Education Requested by Patient: No Hx Alcohol Use: No Hx Substance Use: No Results & Data Vital Signs Vital Signs - 24 hr 03/08/19 15:59 03/08/19 17:00 03/08/19 17:14 Temperature 36.6 C Temperature Source Oral Sepsis Recent Fever Within 48 Hours No Sepsis New/Unexplained Change in Mental Status No Sepsis Action Taken by Nursing No Action Required Pulse Rate 83 83 Pulse Rate [Apical] Pulse Rate from SpO2 Sensor Respiratory Rate 20 22 Respiratory Effort / Characteristics Respiratory Depth Respiratory Pattern Blood Pressure 145/82 H Blood Pressure [Right Arm] Blood Pressure Mean 103 Blood Pressure Mean [Right Arm] Blood Pressure Position [Right Arm] Pulse Oximetry 98 Oxygen Delivery Method Room Air Room Air 03/08/19 18:24 03/08/19 18:26 03/08/19 18:30 Temperature Temperature Source Sepsis Recent Fever Within 48 Hours Sepsis New/Unexplained Change in Mental Status Sepsis Action Taken by Nursing Pulse Rate 86 83 Pulse Rate [Apical] Pulse Rate from SpO2 Sensor 88 Respiratory Rate 26 H 25 H Respiratory Effort / Characteristics Respiratory Depth Respiratory Pattern Blood Pressure 148/85 H Blood Pressure [Right Arm] Blood Pressure Mean 106 Blood Pressure Mean [Right Arm] Blood Pressure Position [Right Arm] Pulse Oximetry 94 Oxygen Delivery Method 03/08/19 20:31 Temperature Temperature Source Sepsis Recent Fever Within 48 Hours Sepsis New/Unexplained Change in Mental Status Sepsis Action Taken by Nursing Pulse Rate Pulse Rate [Apical] 94 H Pulse Rate from SpO2 Sensor Respiratory Rate 18 Respiratory Effort / Characteristics Non-Labored Spontaneous Respiratory Depth Normal Respiratory Pattern Regular Blood Pressure Blood Pressure [Right Arm] 159/110 H Blood Pressure Mean Blood Pressure Mean [Right Arm] 126 Blood Pressure Position [Right Arm] Sitting Pulse Oximetry 94 Oxygen Delivery Method Room Air Home Medications Current Medication List: was personally reviewed by me Laboratory Data Attestation: I reviewed the patient's lab results. Result diagrams: 03/08/19 17:05 03/08/19 17:05 Lab Results 03/08/19 03/08/19 03/08/19 Range/Units 17:05 17:05 17:05 WBC 9.10 (4.8-10.8) K/uL RBC 4.04 L (4.7-6.1) M/uL Hgb 13.9 L (14.0-18.0) g/dL Hct 41.6 L (42-52) % MCV 103.0 H (80-100) fL MCH 34.4 H (25-34) pg MCHC 33.4 (32-36) g/dL RDW Std Deviation 58.2 H (36.4-46.3) fL RDW Coeff of Ashley 15.4 H (11.5-14.5) % Plt Count 293 (130-400) K/uL MPV 9.4 (7.4-10.4) fL Immature Gran % (Auto) 0.3 % Neut % (Auto) 86.0 % Lymph % (Auto) 8.4 % [place] % (Auto) 5.2 % Eos % (Auto) 0.0 % Baso % (Auto) 0.1 % Immature Gran # (Auto) 0.03 H (0.00-0.02) K/uL Neut # (Auto) 7.83 H (1.4-6.5) K/uL Lymph # (Auto) 0.76 L (1.2-3.4) K/uL [place] # (Auto) 0.47 (0.11-0.59) K/uL Eos # (Auto) 0.00 (0-0.5) K/uL Baso # (Auto) 0.01 (0-0.2) K/uL PT 10.9 (9.0-12.0) Seconds INR 1.1 (0.9-1.1) APTT 26.0 (21.0-31.0) Seconds PTT Ratio 1.0 Sodium 137 (136-145) mmol/L Potassium 4.7 (3.5-5.1) mmol/L Chloride 104 (98-107) mmol/L Carbon Dioxide 29 (21-32) mmol/L Anion Gap 4.0 (3-11) BUN 23 H (7-18) mg/dl Creatinine 1.15 (0.6-1.4) mg/dl Est Cr Clr Drug Dosing 35.1 ml/min Est GFR ( Amer) 67.8 Est GFR (Non-Af Amer) 58.5 BUN/Creatinine Ratio 19.7 (10-20) Glucose 101 H (70-99) mg/dl Calcium 9.6 (8.5-10.1) mg/dl Total Bilirubin 0.3 (0.2-1) mg/dl AST 15 (15-37) U/L ALT 17 (12-78) U/L Alkaline Phosphatase 107 (45-117) U/L Total Protein 7.1 (6.4-8.2) gm/dl Albumin 3.6 (3.4-5.0) gm/dl Globulin 3.5 (2.5-4.0) gm/dl Albumin/Globulin Ratio 1.0 (0.9-2) Lipase 85 (73-393) U/L Urine Color Urine Appearance (Clear) Urine pH (4.5-7.5) Ur Specific [place] (1.000-1.030) Urine Protein (Negative) Urine Glucose (UA) (Negative) Urine Ketones (Negative) Urine Blood (Negative) Urine Nitrite (Negative) Urine Bilirubin (Negative) Urine Urobilinogen (Negative) Ur Leukocyte Esterase (Negative) Urine RBC (0-4) /hpf Urine WBC (0-5) /hpf Ur Epithelial Cells (0-5) /lpf Urine Bacteria (Negative) 03/08/19 Range/Units 17:25 WBC (4.8-10.8) K/uL RBC (4.7-6.1) M/uL Hgb (14.0-18.0) g/dL Hct (42-52) % MCV (80-100) fL MCH (25-34) pg MCHC (32-36) g/dL RDW Std Deviation (36.4-46.3) fL RDW Coeff of Ashley (11.5-14.5) % Plt Count (130-400) K/uL MPV (7.4-10.4) fL Immature Gran % (Auto) % Neut % (Auto) % Lymph % (Auto) % [place] % (Auto) % Eos % (Auto) % Baso % (Auto) % Immature Gran # (Auto) (0.00-0.02) K/uL Neut # (Auto) (1.4-6.5) K/uL Lymph # (Auto) (1.2-3.4) K/uL [place] # (Auto) (0.11-0.59) K/uL Eos # (Auto) (0-0.5) K/uL Baso # (Auto) (0-0.2) K/uL PT (9.0-12.0) Seconds INR (0.9-1.1) APTT (21.0-31.0) Seconds PTT Ratio Sodium (136-145) mmol/L Potassium (3.5-5.1) mmol/L Chloride (98-107) mmol/L Carbon Dioxide (21-32) mmol/L Anion Gap (3-11) BUN (7-18) mg/dl Creatinine (0.6-1.4) mg/dl Est Cr Clr Drug Dosing ml/min Est GFR ( Amer) Est GFR (Non-Af Amer) BUN/Creatinine Ratio (10-20) Glucose (70-99) mg/dl Calcium (8.5-10.1) mg/dl Total Bilirubin (0.2-1) mg/dl AST (15-37) U/L ALT (12-78) U/L Alkaline Phosphatase (45-117) U/L Total Protein (6.4-8.2) gm/dl Albumin (3.4-5.0) gm/dl Globulin (2.5-4.0) gm/dl Albumin/Globulin Ratio (0.9-2) Lipase (73-393) U/L Urine Color Yellow Urine Appearance Clear (Clear) Urine pH 6.0 (4.5-7.5) Ur Specific [place] 1.020 (1.000-1.030) Urine Protein 2+ H (Negative) Urine Glucose (UA) Negative (Negative) Urine Ketones Negative (Negative) Urine Blood 3+ H (Negative) Urine Nitrite Negative (Negative) Urine Bilirubin Negative (Negative) Urine Urobilinogen Negative (Negative) Ur Leukocyte Esterase Negative (Negative) Urine RBC >30 H (0-4) /hpf Urine WBC >30 H (0-5) /hpf Ur Epithelial Cells 0-5 (0-5) /lpf Urine Bacteria 2+ H (Negative) Administered Medications Acetaminophen (Tylenol) 650 mg PO Q4H PRN PRN Reason: pain/fever Stop: 04/07/19 22:27 Last Admin: 03/08/19 23:56 Dose: 650 mg Documented by: [id number] Sodium Chloride (Nss 1000ml) 1,000 mls @ 80 mls/hr IV .[id number] MARS Stop: 04/07/19 22:27 Last Admin: 03/08/19 22:53 Dose: 80 mls/hr Documented by: [id number] Miscellaneous (Order Awaiting Action) 1 ea N/A QS MARS Stop: 04/07/19 21:59 Last Admin: 03/09/19 00:26 Dose: Not Given Documented by: [id number] Admin: 03/08/19 23:46 Dose: Not Given Documented by: [id number] Miscellaneous (Order Awaiting Action) 1 ea N/A QS MARS Stop: 04/07/19 21:44 Last Admin: 03/09/19 00:27 Dose: Not Given Documented by: [id number] Admin: 03/08/19 23:46 Dose: Not Given Documented by: [id number] Discontinued Medications Albuterol (Ventolin 0.083% 2.5mg/3ml) 2.5 mg NEB NOW STA Stop: 03/08/19 21:19 Last Admin: 03/08/19 22:05 Dose: 2.5 mg Documented by: [id number] Ceftriaxone Sodium (Rocephin) 1,000 mg in 50 mls @ 100 mls/hr IV NOW STA Stop: 03/08/19 20:43 Last Infusion: 03/08/19 20:51 Dose: 0 mls/hr Documented by: [id number] Admin: 03/08/19 20:21 Dose: 100 mls/hr Documented by: [id number] Imaging Data Radiologist's Impression: Radiology results as stated below per my review and the radiologist's interpretation: CT SCAN OF THE ABDOMEN AND PELVIS WITHOUT IV CONTRAST CLINICAL HISTORY: Hematuria. COMPARISON STUDY: Abdominal CT dated 09/13/2018. TECHNIQUE: CT scan of the abdomen and pelvis is performed from the lung bases to the proximal femora. Images are reviewed in the axial, sagittal, and coronal planes. IV contrast was not administered for this examination as per the referring clinician. A dose lowering technique was utilized adhering to the principles of ALARA. The examination is compromised by motion artifact. CT DOSE: 252.53 mGy.cm FINDINGS: Lung bases: The heart is top normal in size and without pericardial effusion. The coronary arteries are densely calcified. Advanced and edematous change is present at both lung bases. Patchy airspace opacities are seen at the right lung base. There is bibasilar scarring/atelectasis. No pleural effusion is iden tified. There is a small hiatal hernia. Liver: The unenhanced liver is normal in size, contour, and attenuation. There is no intrahepatic biliary ductal dilatation. There are scattered calcified hepa tic granulomas. Gallbladder: Mildly distended but otherwise normal in appearance.. Spleen: Normal in size and attenuation. There are numerous calcified splenic granulomas. Pancreas: The unenhanced pancreas is moderately atrophic and grossly unremarkable. Adrenal glands: Unremarkable. Kidneys: The unenhanced kidneys demonstrate cortical atrophy. There is a 15 mm calculus identified at the right ureteropelvic junction, best seen on image #163. This causes mild right hydronephrosis. There are at least 3 additional nonobstructing right renal calculi. No left renal calculi are clearly identified and there is no left-sided hydronephrosis. Renovascular calcifications are observed. An extrarenal pelvis is again seen on the left. There is no evidence of contour deforming renal mass lesion. There is nonspecific bilateral perinephric extending. There is trace fluid around the right kidney which tracks along the paracolic gutter. Abdominal vasculature: There is advanced atherosclerotic calcification and mild ectasia of the abdominal aorta. Bowel: The small bowel and colon are normal in course and caliber. The appendix is not identified and reported surgically absent Peritoneum: There is no intraperitoneal free air or abdominal ascites. Lymphadenopathy: None. Pelvic viscera: The bladder is markedly distended. The bladder wall is thickened and trabeculated indicating chronic outlet obstruction. The prostate gland is enlarged and heterogeneous noting median lobe hypertrophy. Skeletal structures: The skeletal structures are osteopenic. There is a moderate chronic superior endplate compression deformity of L3. Lumbosacral spondylosis is noted. No lytic or blastic lesions are seen. IMPRESSION: 1. There is a 15 mm calculus at the right ureteropelvic junction which causes mi ld right hydronephrosis. 2. There is right-sided perinephric fluid which tracks inferiorly along the paracolic gutter. 3. Additional nonobstructing right renal calculi as above. 4. Marked bladder distention with prostatomegaly and evidence of chronic bladder outlet obstruction. 5. Advanced emphysema. 6. Mild patchy airspace opacities are seen at the right lung base. This could represent atelectasis/scarring versus a mild infectious/inflammatory pneumonitis. Clinical correlation will be required. 7. Additional findings as above. Electronically signed by: Vidal Love M.D. 03/08/2019 6:06 PM ECG Data Attestation: I personally reviewed and interpreted this ECG as follows: Indication: other (+hematuria) Blood Pressure Blood Pressure Findings: Elevated blood pressure Blood Pressure Disposition: further management by hospitalist Discharge Plan Visit Data *Final* Discharge Date/Time: 03/08/19 22:09 Chief Complaint: Hematuria Stated Complaint: BLOOD IN URINE ED Provider: Art Smallwood Discharge Problem: Nephrolithiasis, Hydronephrosis, UTI (urinary tract infection) Patient Disposition: Admitted As Inpatient Discharge Instructions Interventions: ED Discharge Assessment Last Done: 03/08/19 22:09 The scribe's documentation has been prepared under my direction and personally reviewed by me in its entirety. I confirm that the note above accurately reflects all work, treatment, procedures, and medical decision making performed by me.
[2019-03-09] MEDS: LEVALBUTEROL TARTRATE 15 GM HFA.AER.AD INH PRN ×3 (02:29→23:49)
[2019-03-09] MEDS ORDERED: SODIUM CHLORIDE 0.65% NA SOLN 45 ML (OCEAN) PRN (07:10)
[2019-03-09] MEDS ORDERED: SODIUM CHLORIDE 0.65% NA SOLN 45 ML (OCEAN) ONE (07:13)
[2019-03-09] MEDS: MONTELUKAST SODIUM 10 MG TABLET PO SCH (07:32)
[2019-03-09] MEDS: METOPROLOL SUCC 50MG EXT REL TAB PO SCH (07:33)
[2019-03-09] MEDS: LISINOPRIL 20 MG TAB PO SCH (07:33)
[2019-03-09] MEDS: predniSONE 5 MG TAB PO SCH (07:34)
[2019-03-09] MEDS: TIOTROPIUM BROMIDE 5 PUFF/90 MCG INH INH SCH (07:34)
[2019-03-09] MEDS ORDERED: ALBUT/IPRATROP 3MG/0.5MG NEB 3 ML VIAL INH SCH (09:00)
[2019-03-09] MEDS ORDERED: CHOLECALCIFEROL 1,000 UNITS TAB PO SCH (09:00)
[2019-03-09] MEDS ORDERED: guaiFENesin 600 MG TABCR PO SCH (09:00)
[2019-03-09 09:03] LABS: Basophils # (auto) 0.02 K/uL (0-0.2); Basophils % (auto) 0.2 %; Eosinophils # (auto) 0.05 K/uL (0-0.5); Eosinophils % (auto) 0.5 %; Hematocrit (blood only) 37.2 % (42-52); Hemoglobin 12.2 g/dL (14.0-18.0); Immature Granulocytes # (auto) 0.05 K/uL (0.00-0.02); Immature Granulocytes % (auto) 0.5 %; Lymphocytes # (auto) 1.58 K/uL (1.2-3.4); Lymphocytes % (auto) 16.5 %; Mean Corpuscular Hgb Conc 32.8 g/dL (32-36); Mean Platelet Volume 9.3 fL (7.4-10.4); Monocytes % (auto) 9.4 %; Neutrophils # (auto) 6.96 K/uL (1.4-6.5); Neutrophils % (auto) 72.9 %; Platelet Count 278 K/uL (130-400); RDW Coefficient of Variation 15.3 % (11.5-14.5); RDW Standard Deviation 57.5 fL (36.4-46.3); Red Blood Count 3.61 M/uL (4.7-6.1); White Blood Count 9.56 K/uL (4.8-10.8)
--- NOTE | 2019-03-09 09:04 | Urology Consultation ---
Date of Consultation March 09, 2019 Assessment & Plan (1) Hydronephrosis: 15mm right UPJ stone, resulting hydronephrosis. UA does have bacteria. Discussed large stone size, position, plus bacteria on UA with patient. He is agreeable to ureteral stent placement. Understands that he will need repeat procedure(s) for definitive stone management. Patient added to OR schedule this afternoon. Remains NPO. (2) Obstruction of right ureteropelvic junction (UPJ) due to stone: History of Present Illness Attending Physician: Evie Cabezas MD History of Present Illness 83 YO male, established patient of Dr. Irizarry, with gross hematuria and a large right UPJ stone. Patient reports right flank pain and hematuria worsening x 3-4 days bringing him to the ER for evaluation. His CT scan is reviewed and demonstrates 15mm stone in right UPJ and resulting hydronephrosis. Patient reports feeling okay this morning. Hematuria is persisting, pain is controlled. Intermittent nausea, no vomiting. No fevers. Does have bacteria on UA. Allergies Allergy/AdvReac Type Severity Reaction Status Date / Time cilostazol Allergy Unknown dizziness, Verified 01/11/19 14:11 palpitations diltiazem Allergy Unknown diziness, Verified 01/11/19 14:11 palpitations simvastatin AdvReac Unknown dizziness Verified 01/11/19 14:11 Home Medications Home Medications Medication Instructions Recorded Confirmed Type acetaminophen 650 mg PO DIRECTED PRN 07/26/18 03/08/19 History lisinopril 20 mg PO DAILY 07/26/18 03/08/19 History tiotropium bromide 1 cap INHALATION DAILY 07/26/18 03/08/19 History apixaban 2.5 mg PO BID 09/13/18 03/08/19 History cholecalciferol (vitamin D3) 2,000 units PO DAILY 09/13/18 03/08/19 History [Vitamin D3] guaifenesin [Mucinex] 1,200 mg PO Q12 09/13/18 03/08/19 History ipratropium-albuterol 3 ml INHALATION QID 09/13/18 03/08/19 History metoprolol succinate 50 mg PO DAILY 09/13/18 03/08/19 History Dulera 2 puff INHALATION BID 12/14/18 03/08/19 History benzonatate 100 mg PO QPM PRN 12/14/18 03/08/19 History dutasteride 0.5 mg PO DAILY 12/14/18 03/08/19 History sennosides-docusate sodium [Senna 1 tab PO BID PRN 12/14/18 03/08/19 History Plus] montelukast 10 mg PO DAILY 01/11/19 03/08/19 History polyethylene glycol 3350 [Purelax] 17 g PO DAILY PRN 01/11/19 03/08/19 History furosemide 40 mg PO DAILY PRN #10 tab 01/14/19 03/08/19 Rx levalbuterol tartrate 1 inha INH Q6H PRN #15 gm 01/14/19 03/08/19 Rx potassium chloride 10 meq PO DAILY PRN #10 cap 01/14/19 03/08/19 Rx prednisone 15 mg PO QAM #21 tab 01/14/19 03/08/19 Rx Patient History Medical History Chronic diastolic heart failure Paroxysmal atrial fibrillation Tachycardia Hyperlipidemia Hypertension Hypoxia (Acute) COPD exacerbation (Acute) Chronic obstructive pulmonary disease (Acute) Acute dehydration (Inactive) Asthma Enlarged prostate Hx of renal calculi Hypertension Leukocytosis Family History Mother Cancer thyroid Other No significant family history Social History Preferred Language: Armenian Communication Ability: Effective Electrical Test Technician Required: No Beliefs That Will Affect Care: None marital status: Current Living Situation: Spouse Other Information That Helps Us Care for You: No Feels Safe at Home: Yes Safety Concerns: Feels Safe At This Time Smoking Status: Current every day smoker Tobacco Type: cigarettes Cigarettes Per Day: a pack per day Do You Dip or Chew Tobacco: No Second Hand Exposure: No Tobacco Cessation Education Requested by Patient: No Hx Alcohol Use: No Hx Substance Use: No Review of Systems Constitutional: no fever and no chills Eyes: no worsening vision Ear, Nose, Mouth, Throat: no hearing loss Respiratory: no dyspnea Cardiovascular: no chest pain Gastrointestinal: + abdominal pain and + nausea; no vomiting Genitourinary: + hematuria; no difficulty urinating Musculoskeletal: + back pain Neurologic: no confusion Psychiatric: no problem reported Endocrine: no fatigue Physical Exam Constitutional: no acute distress Neck: normal visual inspection Respiratory: normal respiratory effort; does not use accessory muscles Cardiovascular: Vessels: no JVD Gastrointestinal (Abdomen): Percussion/Palpation: abdomen soft; abdomen nontender Neurologic: not confused Psychiatric: A+Ox3, euthymic affect Results & Data Vital Signs (Past 12 Hours) Vital Signs Temp Pulse Pulse Pulse Resp BP BP 03/08/19 23:20 36.3 C L 84 18 144/83 H 03/08/19 22:29 36.8 C 103 H 20 03/08/19 22:09 79 18 154/92 H 03/08/19 22:06 78 18 BP Pulse Ox 03/08/19 23:20 95 03/08/19 22:29 169/100 H 96 03/08/19 22:09 94 03/08/19 22:06 94
--- NOTE | 2019-03-09 09:26 | Anesthesiology Consultation ---
Date of Service March 09, 2019 Assessment & Plan (1) Encounter for pre-operative examination: Chart Review Chart Review: Acceptable Risk for Surgery and Patient NOT seen in Pre Admission Testing Consults Requested none ASA ASA4 History Surgery Operation Date: 03/09/19 09:50 Proposed Procedures p Cystoscopy, Right Ureteral Stent Placement - Derrek Esteves MD Height/Weight Height: 5 ft 9 in Weight: 51.3 kg Allergies Allergy/AdvReac Type Severity Reaction Status Date / Time cilostazol Allergy Unknown dizziness, Verified 01/11/19 14:11 palpitations diltiazem Allergy Unknown diziness, Verified 01/11/19 14:11 palpitations simvastatin AdvReac Unknown dizziness Verified 01/11/19 14:11 Medications Home Medications Medication Instructions Recorded Confirmed Last Taken acetaminophen 650 mg PO DIRECTED PRN 07/26/18 03/08/19 Unknown lisinopril 20 mg PO DAILY 07/26/18 03/08/19 01/11/19 tiotropium bromide 1 cap INHALATION DAILY 07/26/18 03/08/19 01/11/19 apixaban 2.5 mg PO BID 09/13/18 03/08/19 01/11/19 cholecalciferol (vitamin D3) 2,000 units PO DAILY 09/13/18 03/08/19 01/11/19 [Vitamin D3] guaifenesin [Mucinex] 1,200 mg PO Q12 09/13/18 03/08/19 01/11/19 ipratropium-albuterol 3 ml INHALATION QID 09/13/18 03/08/19 01/11/19 metoprolol succinate 50 mg PO DAILY 09/13/18 03/08/19 01/11/19 Dulera 2 puff INHALATION BID 12/14/18 03/08/19 01/11/19 benzonatate 100 mg PO QPM PRN 12/14/18 03/08/19 12/13/18 HS dutasteride 0.5 mg PO DAILY 12/14/18 03/08/19 01/11/19 sennosides-docusate sodium [Senna 1 tab PO BID PRN 12/14/18 03/08/19 Unknown Plus] montelukast 10 mg PO DAILY 01/11/19 03/08/19 01/11/19 polyethylene glycol 3350 [Purelax] 17 g PO DAILY PRN 01/11/19 03/08/19 01/11/19 furosemide 40 mg PO DAILY PRN #10 tab 01/14/19 03/08/19 Unknown levalbuterol tartrate 1 inha INH Q6H PRN #15 gm 01/14/19 03/08/19 Unknown potassium chloride 10 meq PO DAILY PRN #10 cap 01/14/19 03/08/19 Unknown prednisone 15 mg PO QAM #21 tab 01/14/19 03/08/19 Unknown Active Medications Generic Name Dose Route Start Last Admin Trade Name Freq PRN Reason Stop Dose Admin Acetaminophen 650 mg 03/08/19 22:28 03/08/19 23:56 Tylenol PO 04/07/19 22:27 650 mg Q4H PRN Administration pain/fever Albuterol 3 ml 03/09/19 12:00 03/09/19 11:32 Duoneb INH 04/08/19 08:59 3 ml QIDR MARS Administration Guaifenesin 1,200 mg 03/09/19 09:00 03/09/19 07:32 Mucinex PO 04/08/19 08:59 600 mg Q12 MARS Administration Sodium Chloride 1,000 mls @ 80 mls/hr 03/08/19 22:28 03/09/19 10:55 Nss 1000ml IV 04/07/19 22:27 80 mls/hr .[id number] MARS Administration Levalbuterol HCl 1 puffs 03/08/19 21:19 03/09/19 14:40 Xopenex Hfa INH 04/07/19 21:18 1 puffs Q6H PRN Administration shortness of breath Lisinopril 20 mg 03/09/19 09:00 03/09/19 07:33 Zestril PO 04/08/19 08:59 20 mg DAILY MARS Administration Metoprolol Succinate 50 mg 03/09/19 09:00 03/09/19 07:33 Toprol Xl PO 04/08/19 08:59 50 mg DAILY MARS Administration Miscellaneous 1 ea 03/08/19 22:00 03/09/19 07:35 Order Awaiting Action N/A 04/07/19 21:59 Not Given QS MARS Miscellaneous 1 ea 03/08/19 21:45 03/09/19 07:35 Order Awaiting Action N/A 04/07/19 21:44 Not Given QS MARS Montelukast Sodium 10 mg 03/09/19 09:00 03/09/19 07:32 Singulair PO 04/08/19 08:59 10 mg DAILY MARS Administration Prednisone 15 mg 03/09/19 09:00 03/09/19 07:34 Prednisone PO 04/08/19 08:59 15 mg QAM MARS Administration Tiotropium [place] 1 puffs 03/09/19 09:00 03/09/19 07:34 Spiriva INH 04/08/19 08:59 Not Given DAILY MARS Past Medical History Medical History Chronic diastolic heart failure Paroxysmal atrial fibrillation Tachycardia Hyperlipidemia Hypertension Hypoxia (Acute) COPD exacerbation (Acute) Chronic obstructive pulmonary disease (Acute) Acute dehydration (Inactive) Asthma Enlarged prostate Hx of renal calculi Hypertension Leukocytosis Past Family History Family History Mother Cancer thyroid Other No significant family history Social History Smoking Status: Current every day smoker tobacco type: cigarettes Smoking cigarettes per day: a pack per day Do You Dip or Chew Tobacco: No Hx Alcohol Use: No Hx Substance Use: No Physical Exam Vital Signs Last Vital Signs Temp 37.0 C 03/09/19 14:51 Pulse 88 03/09/19 14:51 Resp 20 03/09/19 14:51 BP 152/84 H 03/09/19 14:51 Pulse Ox 95 03/09/19 14:51 Testing Laboratory Results Laboratory Tests 03/08/19 17:05 Sodium 137 Potassium 4.7 Chloride 104 Carbon Dioxide 29 BUN 23 H Creatinine 1.15 Glucose 101 H 03/09/19 08:37 03/08/19 03/08/19 17:05 17:25 PT 10.9 INR 1.1 APTT 26.0 Urine Color Yellow Urine Appearance Clear Urine pH 6.0 Ur Specific [place] 1.020 Urine Protein 2+ H Urine Glucose (UA) Negative Urine Ketones Negative Urine Nitrite Negative Ur Leukocyte Esterase Negative Urine RBC >30 H Urine WBC >30 H Ur Epithelial Cells 0-5 Electrocardiogram Date: 03/08/19 Echocardiogram Date: 01/12/19 EF: 55% LV Function: normal (Low normal) Other Findings: no LVH 1. LV not well visualized. Grossly normal LV size. LV systolic function appears low normal. Estimated EF 55% visually. Cannot exclude wall motion abnormalities given poor image quality. No LVH 2. Aortic valve sclerosis mild, without significant aortic valvular stenosis 3. Mild pulmonary hypertension. Estimated RVSP 38mmHg
[2019-03-09 09:40] LABS: BUN Creatinine Ratio 16.9 (10-20); Calcium 8.4 mg/dl (8.5-10.1); Creatinine Clr Calc Pharmacy 41.4 ml/min; Est GFR (African American) 82.3; Potassium 3.9 mmol/L (3.5-5.1)
[2019-03-09] MEDS: SODIUM CHLORIDE 0.9% 1000ML 1,000 ML IV SCH ×2 (10:55→23:27)
[2019-03-09] MEDS: ALBUT/IPRATROP 3MG/0.5MG NEB 3 ML VIAL INH SCH ×3 (11:32→19:06)
--- NOTE | 2019-03-09 14:39 | Family Medicine Progress Note ---
Date of Service March 09, 2019 Assessment & Plan (1) Nephrolithiasis: 83 y/o M with PMH BPH, CKDIII, COPD, Afib, HTN presents with right-sided renal calculus with hydronephrosis in setting of chronic bladder outlet obstruction. Hydronephrosis/Neprholithiasis/UTI/BPH -CT Abd/Pelvis: 15 mm calculus at the right ureteropelvic junction causing mild right hydronephrosis -Urology: ureteral stent placement today -Holding eliquis -Ceftriaxone for suspected UTI -IVF NSS at 80/hr -Cont home BPH med Avodart COPD -Cont home symbicort, benzonatate, prednisone, montelukast, ventolin nebs Afib -Holding eliquis for procedure -Cont home metoprolol succ 50 HTN -Cont home metoprolol and lisinopril Chronic peripheral edema -Pt uses prn lasix 1-2 times per week with K+. Not indicated at present CKD III -Appears stable. Will cont to monitor Tobacco Abuse -Nicotine patch ordered FEN/GI: IVF at 80. NPO. Will advance diet after procedure. DVT Prophylaxis: Eliquis on hold, will restart tomorrow Full no mechanical vent Dispo: Cont on Med Surg (2) UTI (urinary tract infection): (3) Patient underweight: (4) BPH (benign prostatic hyperplasia): (5) Tobacco use disorder: (6) Chronic diastolic heart failure: (7) Bilateral lower extremity edema: (8) Hyperlipidemia: (9) Hypertension: Supervising Physician Co-Signing Physician Notes Resident Physician Supervision Note: I independently interviewed and examined the patient and verified the escamilla history and physical, reviewed labs and image studies, discussed the case with the resident Dr. Carrillo and agree with the findings and care plan. Subjective 83 y/o M found in bed this AM in NAD. Reports no acute overnight events. Denies any pain, urinary complaints. Still NPO. No issues voiding. Asking whether he can go home after stent placement today. No other acute concerns or complaints. Review of Systems Review of Systems: All systems reviewed & are unremarkable except as noted in HPI & below Physical Exam Constitutional: + thin Eyes: PERRL, conjunctivae normal, anicteric sclerae ENMT: external ear and nose normal, oropharynx normal Respiratory: expiratory wheezing Cardiovascular: Rate/Rhythm: + irregularly irregular Gastrointestinal (Abdomen): normal bowel sounds, soft, nontender, no hepatosplenomegaly Skin: no rashes, warm and dry Psychiatric: A+Ox3, euthymic affect Results & Data Vital Signs (Past 12 Hours) Vital Signs Pulse Resp Pulse Ox 03/09/19 11:33 95 H 18 91 03/09/19 09:15 79 18 95 Laboratory Results Laboratory Results - last 24 hr 03/08/19 03/08/19 03/08/19 17:05 17:05 17:05 WBC 9.10 RBC 4.04 L Hgb 13.9 L Hct 41.6 L MCV 103.0 H MCH 34.4 H MCHC 33.4 RDW Std Deviation 58.2 H RDW Coeff of [place] 15.4 H Plt Count 293 MPV 9.4 Immature Gran % (Auto) 0.3 Neut % (Auto) 86.0 Lymph % (Auto) 8.4 [place] % (Auto) 5.2 Eos % (Auto) 0.0 Baso % (Auto) 0.1 Immature Gran # (Auto) 0.03 H Neut # (Auto) 7.83 H Lymph # (Auto) 0.76 L [place] # (Auto) 0.47 Eos # (Auto) 0.00 Baso # (Auto) 0.01 PT 10.9 INR 1.1 APTT 26.0 PTT Ratio 1.0 Sodium 137 Potassium 4.7 Chloride 104 Carbon Dioxide 29 Anion Gap 4.0 BUN 23 H Creatinine 1.15 Est Cr Clr Drug Dosing 35.1 Est GFR ( Amer) 67.8 Est GFR (Non-Af Amer) 58.5 BUN/Creatinine Ratio 19.7 Glucose 101 H Calcium 9.6 Total Bilirubin 0.3 AST 15 ALT 17 Alkaline Phosphatase 107 Total Protein 7.1 Albumin 3.6 Globulin 3.5 Albumin/Globulin Ratio 1.0 Lipase 85 Urine Color Urine Appearance Urine pH Ur Specific [place] Urine Protein Urine Glucose (UA) Urine Ketones Urine Blood Urine Nitrite Urine Bilirubin Urine Urobilinogen Ur Leukocyte Esterase Urine RBC Urine WBC Ur Epithelial Cells Urine Bacteria 03/08/19 03/09/19 03/09/19 17:25 08:37 08:37 WBC 9.56 RBC 3.61 L Hgb 12.2 L Hct 37.2 L MCV 103.0 H MCH 33.8 MCHC 32.8 RDW Std Deviation 57.5 H RDW Coeff of [place] 15.3 H Plt Count 278 MPV 9.3 Immature Gran % (Auto) 0.5 Neut % (Auto) 72.9 Lymph % (Auto) 16.5 [place] % (Auto) 9.4 Eos % (Auto) 0.5 Baso % (Auto) 0.2 Immature Gran # (Auto) 0.05 H Neut # (Auto) 6.96 H Lymph # (Auto) 1.58 [place] # (Auto) 0.90 H Eos # (Auto) 0.05 Baso # (Auto) 0.02 PT INR APTT PTT Ratio Sodium 140 Potassium 3.9 D Chloride 107 Carbon Dioxide 30 Anion Gap 3.0 BUN 17 Creatinine 0.98 Est Cr Clr Drug Dosing 41.4 Est GFR ( Amer) 82.3 Est GFR (Non-Af Amer) 71.0 BUN/Creatinine Ratio 16.9 Glucose 79 Calcium 8.4 L Total Bilirubin AST ALT Alkaline Phosphatase Total Protein Albumin Globulin Albumin/Globulin Ratio Lipase Urine Color Yellow Urine Appearance Clear Urine pH 6.0 Ur Specific [place] 1.020 Urine Protein 2+ H Urine Glucose (UA) Negative Urine Ketones Negative Urine Blood 3+ H Urine Nitrite Negative Urine Bilirubin Negative Urine Urobilinogen Negative Ur Leukocyte Esterase Negative Urine RBC >30 H Urine WBC >30 H Ur Epithelial Cells 0-5 Urine Bacteria 2+ H Medications Administered Current Inpatient Medications Acetaminophen (Tylenol) 650 mg PO Q4H PRN PRN Reason: pain/fever Stop: 04/07/19 22:27 Last Admin: 03/08/19 23:56 Dose: 650 mg Documented by: Al Hydrox/Mg Hydrox/Simethicone (Maalox) 30 ml PO Q6H PRN PRN Reason: Dyspepsia Stop: 04/07/19 22:27 Albuterol (Duoneb) 3 ml INH QIDR MARS Stop: 04/08/19 08:59 Last Admin: 03/09/19 11:32 Dose: 3 ml Documented by: Benzonatate (Tessalon Perle) 100 mg PO QPM PRN PRN Reason: Cough Stop: 04/07/19 21:18 Guaifenesin (Mucinex) 1,200 mg PO Q12 [facility] Stop: 04/08/19 08:59 Last Admin: 03/09/19 07:32 Dose: 600 mg Documented by: Ceftriaxone Sodium 1,000 mg/ (Dextrose) 60 mls @ 100 mls/hr IV Q24H MARS; Protocol Stop: 03/14/19 17:59 Sodium Chloride (Nss 1000ml) 1,000 mls @ 80 mls/hr IV .[id number] MARS Stop: 04/07/19 22:27 Last Admin: 03/09/19 10:55 Dose: 80 mls/hr Documented by: Levalbuterol HCl (Xopenex Hfa) 1 puffs INH Q6H PRN PRN Reason: shortness of breath Stop: 04/07/19 21:18 Last Admin: 03/09/19 14:40 Dose: 1 puffs Documented by: Lisinopril (Zestril) 20 mg PO DAILY [facility] Stop: 04/08/19 08:59 Last Admin: 03/09/19 07:33 Dose: 20 mg Documented by: Magnesium Hydroxide (Milk Of Magnesia) 30 ml PO Q6H PRN PRN Reason: Constipation Stop: 04/07/19 22:27 Metoprolol Succinate (Toprol Xl) 50 mg PO DAILY [facility] Stop: 04/08/19 08:59 Last Admin: 03/09/19 07:33 Dose: 50 mg Documented by: Miscellaneous (Order Awaiting Action) 1 ea N/A QS [facility] Stop: 04/07/19 21:59 Last Admin: 03/09/19 07:35 Dose: Not Given Documented by: Miscellaneous (Order Awaiting Action) 1 ea N/A QS [facility] Stop: 04/07/19 21:44 Last Admin: 03/09/19 07:35 Dose: Not Given Documented by: Miscellaneous (Remove Nicoderm Patch) 1 ea N/A HS [facility] Stop: 04/08/19 20:59 Montelukast Sodium (Singulair) 10 mg PO DAILY [facility] Stop: 04/08/19 08:59 Last Admin: 03/09/19 07:32 Dose: 10 mg Documented by: Nicotine (Nicoderm Cq) 14 mg TD QAM [facility] Stop: 04/09/19 08:59 Ondansetron HCl (Zofran) 4 mg IV Q6H PRN PRN Reason: Nausea Stop: 04/07/19 22:27 Polyethylene Glycol (Miralax Powder Packet) 17 gm PO DAILY PRN PRN Reason: Constipation Stop: 04/07/19 22:27 Prednisone (Prednisone) 15 mg PO QAM MARS Stop: 04/08/19 08:59 Last Admin: 03/09/19 07:34 Dose: 15 mg Documented by: Sodium Chloride (Cecil Nasal) 1 sprays NA PRN PRN PRN Reason: dry nose Stop: 04/08/19 07:09 Tiotropium [place] (Spiriva) 1 puffs INH DAILY MARS Stop: 04/08/19 08:59 Last Admin: 03/09/19 07:34 Dose: Not Given Documented by: Resident Activity Tracking Resident Involvement: Resident Care Provided Care Provided: Adult Hospital Medicine
[2019-03-09] MEDS ORDERED: ePHEDrine sulfate 50 MG/ML AMP IV PRN (15:14)
[2019-03-09] MEDS ORDERED: fentaNYL citrate 100 MCG/2 ML VIAL IV PRN (15:14)
[2019-03-09] MEDS ORDERED: ATROPINE SULFATE 0.1 MG/ML 10ML SYR IV PRN (15:14)
[2019-03-09] MEDS ORDERED: LIDOCAINE HCL 2% 2 ML VIAL/AMP(20MG/ML) INFIL ONE (15:33)
[2019-03-09] MEDS ORDERED: fentaNYL citrate 100 MCG/2 ML VIAL ONE (15:33)
[2019-03-09] MEDS ORDERED: PROPOFOL IV EMULSION 10 MG/ML 20 ML VIAL IV ONE (15:33)
[2019-03-09] MEDS ORDERED: IOTHALAMATE MEGLUMINE II 17.2% 250 ML VIAL ONE (15:34)
--- NOTE | 2019-03-09 16:07 | Urology Progress Note ---
Date of Service March 09, 2019 Subjective 83-year-old male presented with gross hematuria. Patient has history of stones in the past. He had a CAT scan after his family brought him in for persistent gross hematuria. He is been on and off of antibiotics but keeps having blood and apparently is been cystoscoped recently by Dr. Irizarry within the last year with nothing found. The patient on CAT scan has a stone in the UPJ with mild obstruction. He denies having significant flank pain. He has had no fever and has normal white blood cell count. He did have pyuria but a negative culture. He has not had Eliquis since yesterday morning. He suffered significant weight loss over the past 9 months. In addition he has a liter of urine in his bladder at least. Is clear that he is in retention. Apparently in the past these had surgery for retention and did at one point in his life do CIC. Had a long discussion with patient and his 2 daughters about what the goals are at this time. Is clear that we are not going to remove the stone today which is placing a stent. It may also allow us to see if there is any other cause of his bleeding. Also plan on placing a Venegas catheter. The stent cannot be left indefinitely. It may be necessary at some point to do ureteroscopy and/or to remove or exchange the stent. Difficult situation for patient that have never met. Discussed with Dr. Davis there is some concern that he could develop sepsis acutely and that we still do not know what is going on in the place and stent at this time will prevent potentially problems and will give us time to decide whether he is a candidate for ureteroscopy going forward. This reason discussed with the patient and the family we agreed to proceed. Results & Data Vital Signs (Past 12 Hours) Vital Signs Temp Pulse Pulse Resp BP Pulse Ox 03/09/19 14:51 37.0 C 88 20 152/84 H 95 03/09/19 11:33 95 H 18 91 03/09/19 09:15 79 18 95
[2019-03-09] MEDS ORDERED: KETAMINE HCL INJ 50 MG/ML 10 ML VIAL ONE (16:16)
--- NOTE | 2019-03-09 16:40 | Post Operative Brief Note ---
Immediate Post Op Note v1 Date of Surgery March 09, 2019 Pre & Post Diagnosis Operation Date: 03/09/19 09:50 <No data on this case meets the specified criteria> Procedure Operation Date: 03/09/19 09:50 Actual Procedures p Cystoscopy, Right Ureteral Stent Placement - Derrek Esteves MD Surgeon Derrek Esteves MD Prom Burn Off Operator none Estimated Blood Loss 0 Findings See Below (stone did not cause severe hydroneprosis, No tumor seen in heavily trabeculated bladder, prostae s/p previous turp)
[2019-03-09] MEDS ORDERED: PHENYLEPHRINE 100MCG/ML 5ML SYR ONE (16:59)
--- NOTE | 2019-03-09 17:06 | Anesthesiology Progress Note ---
Date of Service March 09, 2019 Anesthesia Post Procedure Vital Signs Vital Signs: Temp Pulse Pulse Pulse Resp BP BP 03/09/19 17:00 78 18 143/87 H 03/09/19 16:51 36.7 C 76 18 138/82 03/09/19 14:51 37.0 C 88 20 152/84 H 03/09/19 11:33 95 H 18 03/09/19 09:15 79 18 03/08/19 23:20 36.3 C L 84 18 144/83 H 03/08/19 22:29 36.8 C 103 H 20 03/08/19 22:09 79 18 154/92 H 03/08/19 22:06 78 18 03/08/19 20:31 94 H 18 03/08/19 18:30 83 25 H 03/08/19 18:26 86 26 H 148/85 H 03/08/19 18:24 03/08/19 17:14 83 22 BP Pulse Ox 03/09/19 17:00 100 03/09/19 16:51 100 03/09/19 14:51 95 03/09/19 11:33 91 03/09/19 09:15 95 03/08/19 23:20 95 03/08/19 22:29 169/100 H 96 03/08/19 22:09 94 03/08/19 22:06 94 03/08/19 20:31 159/110 H 94 03/08/19 18:30 03/08/19 18:26 03/08/19 18:24 94 03/08/19 17:14 Transfer of Care Handoff Completed per policy Notes Mental Status: alert / awake / arousable and participated in evaluation Patient Amnestic to Procedure: Yes Nausea / Vomiting: adequately controlled Pain: adequately controlled Airway Patency, RR, SpO2: stable & adequate BP & HR: stable & adequate Hydration State: stable & adequate Anesthetic Complications: no major complications apparent
--- NOTE | 2019-03-09 17:14 | Fluoroscopy Report ---
FL retrograde includes kub HISTORY: RIGHT STENT/CYSTO FLUOROSCOPY TIME: 16 seconds. FINDINGS: 7 fluoroscopic spot images were submitted for review. Retrograde opacification of the right renal collecting system and right ureter. This is followed by placement of a right ureteral stent wh ich appears in good position. IMPRESSION: Fluoroscopy provided for right ureteral stent placement.. Electronically signed by: Jose Bowles M.D. 03/09/2019 5:13 PM
[2019-03-09] MEDS ORDERED: DOCUSATE SODIUM/SENNA 50/8.6MG TAB PO PRN (17:18)
[2019-03-09] MEDS ORDERED: POTASSIUM CHLORIDE 10 MEQ TABCR PO PRN (17:18)
[2019-03-09] MEDS ORDERED: POLYETHYLENE GLYCOL 17 GM PO PRN (17:18)
[2019-03-09] MEDS ORDERED: ACETAMINOPHEN 325 MG TAB PO PRN (17:18)
[2019-03-09] MEDS ORDERED: Nursing to Pharmacy Communication ONE (17:59)
[2019-03-09] MEDS ORDERED: cefTRIAXone SODIUM 1,000 MG in DEXTROSE 5% 50 ML IV SCH (18:00)
[2019-03-09] MEDS ORDERED: ZOLPIDEM TARTRATE 5 MG TAB PO PRN (19:14)
[2019-03-09] MEDS: guaiFENesin 600 MG TABCR PO SCH (20:28)
[2019-03-09] MEDS: ACETAMINOPHEN 325 MG TAB PO PRN (20:28)
[2019-03-10] MEDS: AVODART~ORDER AWAITING ACTION SCH ×2 (00:39→08:34)
[2019-03-10] MEDS: DULERA~ORDER AWAITING ACTION SCH ×2 (00:40→08:34)
--- NOTE | 2019-03-10 01:56 | Operative Report ---
DATE OF OPERATION: 03/09/2019 PROCEDURE PERFORMED: Cystoscopy, irrigation of the bladder, and right retrograde right stent placement. HISTORY OF PRESENTATION: The patient is an 83-year-old male with history of stones who presented to the Emergency Room with ongoing intermittent bleeding, on Eliquis, who has had, per his family, significant decline with weight loss over the last 6-7 months, intermittent bleeding which occasionally resolved over antibiotics. In the past, he had a TURP. At one point in the distant past apparently he had surgery and has not knowingly had problems voiding since then. He presented to the Emergency Room last night with a CAT scan that showed a stone at the UPJ with not a lot of hydro, but some hydro per radiology and a negative culture on 03/08/2019, and normal white blood cell count. He has been afebrile. He denies having any pain, but he has had significant gross hematuria, which is why they brought him. The hematuria began to resolve somewhat off of Eliquis for the last 24 hours. We discussed the options including placing a stent because he did have some pyuria and there was concern that he might develop flank pain and also we could do a cystoscopy to assess for his retention as well as gross hematuria. I did offer the family not to do these things because there is some question as to whether the patient is a good candidate for ureteroscopy, we cannot leave the stent indwelling permanently, they understand this. We will have to do something in the next 2-3 weeks. One possibility might be to remove the stent if the patient is not having pain or to check to make sure that there is not any stent encrustation. I discussed with Dr. Irizarry who is the patient's primary urologist, who recommended placing a stent at this time, we can then remove it. We can also assess for the gross hematuria and place a Venegas catheter. The patient and the family agree. They understand the difficulties in this decision that it was not a black and white decision. DESCRIPTION OF THE PROCEDURE: The patient was taken to the cystoscopy suite. He was given sedation, had Venodyne stockings placed, and was placed in dorsal lithotomy position. Cystoscopy was performed. The bladder was drained. The bladder was irrigated with normal saline through the scope. The patient did not have a urethral stricture and he did have a previous surgery from his prostate. His prostatic urethra was not significantly long, somewhat obstructed at the apex but open at the base. Once inside the bladder, the bladder was irrigated of all stones or significant trabeculation. I did not see in, after irrigating several times I was able to see the bladder fairly clearly with a 70-degree lens and the 30-degree lens did not see any tumors. I was able to identify with some difficulty the right ureteral orifice. The left ureteral orifice was easily seen. I was able to pass the scope up the right ureteral orifice and then passed a 5-Sinhala open-ended catheter over the guidewire and then did a retrograde. It did not appear there was significant hydronephrosis with some contrast apparently draining from the pelvis. I did place a stent at this time although it may be that down the road the stone may have only been intermittently obstructing. At the end of the procedure, I did place a 4.8, 24 cm stent. It appeared to be in the proper position. There was not a great curl in the pelvis, but it was clearly in the renal pelvis, possibly in the lower pole calyx and there was a good curl in the bladder. The patient had a Venegas catheter placed and was transferred to the recovery room in stable condition. I attest to the content of the Intraoperative Record and any orders documented therein. Any exception s are noted below.
[2019-03-10] MEDS: ALBUT/IPRATROP 3MG/0.5MG NEB 3 ML VIAL INH SCH ×2 (07:10→10:52)
[2019-03-10 08:24] LABS: Basophils # (auto) 0.02 K/uL (0-0.2); Basophils % (auto) 0.2 %; Eosinophils # (auto) 0.04 K/uL (0-0.5); Eosinophils % (auto) 0.3 %; Hematocrit (blood only) 35.9 % (42-52); Hemoglobin 12.1 g/dL (14.0-18.0); Immature Granulocytes # (auto) 0.05 K/uL (0.00-0.02); Immature Granulocytes % (auto) 0.4 %; Lymphocytes # (auto) 1.48 K/uL (1.2-3.4); Lymphocytes % (auto) 12.1 %; Mean Corpuscular Hgb Conc 33.7 g/dL (32-36); Mean Corpuscular Volume 102.9 fL (80-100); Mean Platelet Volume 9.2 fL (7.4-10.4); Monocytes # (auto) 1.09 K/uL (0.11-0.59); Monocytes % (auto) 8.9 %; Neutrophils % (auto) 78.1 %; Platelet Count 255 K/uL (130-400); RDW Standard Deviation 56.5 fL (36.4-46.3); Red Blood Count 3.49 M/uL (4.7-6.1); White Blood Count 12.28 K/uL (4.8-10.8)
[2019-03-10] MEDS: guaiFENesin 600 MG TABCR PO SCH (08:34)
[2019-03-10] MEDS: TIOTROPIUM BROMIDE 5 PUFF/90 MCG INH INH SCH (08:35)
[2019-03-10] MEDS: MONTELUKAST SODIUM 10 MG TABLET PO SCH (08:35)
[2019-03-10] MEDS: METOPROLOL SUCC 50MG EXT REL TAB PO SCH (08:35)
[2019-03-10] MEDS: LISINOPRIL 20 MG TAB PO SCH (08:36)
[2019-03-10] MEDS: predniSONE 5 MG TAB PO SCH (08:36)
[2019-03-10 08:58] LABS: Albumin Level 2.9 gm/dl (3.4-5.0); BUN Creatinine Ratio 16.7 (10-20); Calcium 8.3 mg/dl (8.5-10.1); Creatinine Clr Calc Pharmacy 39.8 ml/min; Est GFR (African American) 78.4; Est GFR (Non-African American) 67.7; Potassium 3.7 mmol/L (3.5-5.1)
[2019-03-10] MEDS ORDERED: NICOTINE 14 MG/24 HR PATCH TD SCH (09:00)
[2019-03-10] MEDS ORDERED: FUROSEMIDE 40 MG TAB PO SCH (09:00)
[2019-03-10] MEDS ORDERED: POTASSIUM CHLORIDE 10 MEQ TABCR PO SCH (09:00)
[2019-03-10 09:03] LABS: Albumin Globulin Ratio 1.1 (0.9-2); Bilirubin,Total 0.7 mg/dl (0.2-1); Globulin 2.7 gm/dl (2.5-4.0); Total Protein 5.6 gm/dl (6.4-8.2)
--- NOTE | 2019-03-10 10:36 | Urology Progress Note ---
Date of Service March 10, 2019 Assessment & Plan (1) Obstruction of right ureteropelvic junction (UPJ) due to stone: POD #1 s/p ureteral stent placement. Stent not bothersome. Patient has URO follow up arranged on Friday03/15/19 @ [address]rizarry. Recommend that patient maintain Venegas and hold Eliquis until this outpatient visit. Thank you for allowing us to participate in the inpatient care of Mr. Garcia. Please contact our service with additional questions/concerns. (2) UTI (urinary tract infection): Subjective 83 YO male POD #1 s/p right ureteral stent insertion. Patient reports feeling well, requests discharge. His stent is not bothersome. Hematuria is continuing, but has improved to light pink urine. Venegas remains in place. Review of Systems Review of Systems: All systems reviewed & are unremarkable except as noted in HPI & below Physical Exam Physical Exam: NAD. Resp effort normal. No JVD. Abd soft/nontender. : Venegas in place, patent, draining light pink urine without clot. A&O x3, appropriate affect. Results & Data Vital Signs (Past 12 Hours) Vital Signs Temp Pulse Pulse Resp BP Pulse Ox 03/10/19 07:42 36.9 C 92 H 16 146/90 H 96 03/10/19 07:12 94 H 18 91 03/10/19 02:43 36.4 C L 78 16 113/70 92 03/09/19 22:59 36.9 C 85 16 133/81 94
[2019-03-10] MEDS ORDERED: FUROSEMIDE 20 MG TAB PO ONE (10:45)
--- NOTE | 2019-03-10 18:24 | Discharge Summary ---
Date of Service March 10, 2019 Admission HPI Per Admitting Provider Patient is a pleasant 83yo M PMH CKD III, BPH, nephrolithiasis, Chronic diastolic CHF, pAF, HTN, HLD, COPD who presents with hematuria. He notes he has chronic hematuria due to his chronic issues, and had started having hematuria last week, for which he called his urologist and gotten an antibiotic (which he says he does regularly). Usually the antibiotics stop the hematuria, and said that for a few days the bleeding did stop, but he was at the tail end the antibiotic course over the weekend and the bleeding resumed, which was concerning to him. He denies any other symptoms such as flank pain, suprapubic pain, fevers, chills, dysuria, nausea, vomiting. Investigation in the ER revealed normal WBC, normal BMP, normal LFTs. UA showed chronic 3+blood, >30RBC, >30 WBC 2+bacteria. CT abdomen/pelvis revealed R-sided 15mm calculus at R UP junction with mild hydronephrosis and perinephric fluid. Also showed chronic bladder outlet obstruction with bladder distension and advanced emphysema. Urology was consulted by ED staff who recommended admission, ceftriaxone, NPO from midnight and will evaluate in the AM for possible stenting. Principal Diagnosis urolithiasis Discharge Exam Constitutional + thin Eyes PERRL, conjunctivae normal, anicteric sclerae ENMT external ear and nose normal, oropharynx normal Cardiovascular Rate/Rhythm: + irregularly irregular Gastrointestinal (Abdomen) normal bowel sounds, soft, nontender, no hepatosplenomegaly Skin no rashes, warm and dry Psychiatric A+Ox3, euthymic affect Discharge Data Allergies Allergy/AdvReac Type Severity Reaction Status Date / Time cilostazol Allergy Unknown dizziness, Verified 01/11/19 14:11 palpitations diltiazem Allergy Unknown diziness, Verified 01/11/19 14:11 palpitations simvastatin AdvReac Unknown dizziness Verified 01/11/19 14:11 Consultations 03/08/19 20:15 ED Decision to Admit Stat 03/08/19 22:28 Consult Case Management - Discharge Planning Routine Consult Urology Routine Procedures Performed Operation Date: 03/09/19 09:50 Actual Procedures p Cystoscopy, right retrograde pyelogram, Right Ureteral Stent Placement - Derrek Esteves MD Ordered Studies 03/08/19 16:46 CT abd pelvis wo con Stat 03/09/19 [place] retrograde includes kub Routine Hospital Course (1) Obstruction of right ureteropelvic junction (UPJ) due to stone: 83 y/o M with PMH BPH, CKDIII, COPD, Afib, HTN presented with right-sided renal calculus with hydronephrosis in setting of chronic bladder outlet obstruction. This is the medical management during stay here: Hydronephrosis/Neprholithiasis -As above, CT Abd/Pelvis showed 15 mm calculus at the right ureteropelvic junction causing mild right hydronephrosis. Urology was consulted and placed a ureteral stent. Eliquis was held for this and will continued to be held until URO follow up on Friday03/15/19 @ [address] Irizarry. We gave Ceftriaxone for suspected UTI, and pt will not go home on any antibiotic regimen. Otherwise we continued home BPH med Avodart here. It was recommended that patient maintain Venegas until outpatient visit on 03/15. COPD -We continued home symbicort, benzonatate, prednisone, montelukast, ventolin nebs Afib -As above, we held eliquis for procedure, but continued home metoprolol succ 50. Pt has cardiology f/u appt for 03/17/19 at 1300. HTN -We continued home metoprolol and lisinopril Chronic peripheral edema -Pt uses prn lasix 1-2 times per week with K+. This use was not indicated during stay here. BPH -Dutasteride Tobacco Abuse -Nicotine patch ordered here At time of d/c, pt had no other acute concerns or complaints and was not complaining of any pain associated with procedure. Total Time Total Time Spent Total Time Spent (In Minutes): 35 min Discharge Plan Discharge Items Patient Disposition: Home - Self-Care Reason For Visit: RENAL CALCULUS WITH HYDRONEPHROSIS Discharge Diagnosis: urolithiasis- kidney stone Discharge Goals: Decrease discomfort and Improve disease control Activity: Per 'Additional Instructions' section Non-emergency contact: Primary Care Provider Call non-emergency contact if: you have any medication questions, your symptoms worsen and your temperature is above 101.5 Follow-up/Referrals: Marquis Irizarry MD [Physician] - 03/15/19 1:15 pm (Please keep your scheduled appointment with Dr. Irizarry on FridayMarch 15 at 1:15pm.) Guerrero Morse MD [Primary Care Provider] - 03/17/19 11:30 am (No appointments are available with Dr. Solomon. Please follow up with Rhiannon Mandujano NP, in the SAME OFFICE as your cardiology appointment on the SAME DAY, FridayMarch 17, at 11:30 am. ) Dia Galvan PA-C [Physician [employer] Reporter] - 03/17/19 1:00 pm (Please keep your follow up cardiology appointment with XAVIER Chambers, on FridayMarch 17 at 1:00pm.) Diet: Regular Addtl Provider Instructions: You were admitted for pain and were found to have a kidney stone. The urologist placed a stent to help alleviate this. Please follow the below instructions on discharge: - Please see your PCP within one week of discharge - Please follow up with the urologist at your scheduled appointment with Dr. Anne next Friday. 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 Information on kidney stones and ureteral stens will be printed for you on discharge. Please read this information carefully. Prescriptions: Continued ipratropium-albuterol 0.5 mg-3 mg(2.5 mg base)/3 mL solution for nebulization 3 ml Inhalation QID RF: 0 metoprolol succinate 50 mg tablet extended release 24 hr 50 mg PO DAILY RF: 0 cholecalciferol (vitamin D3) [Vitamin D3] 2,000 unit Capsule 2,000 units PO DAILY RF: 0 apixaban 2.5 mg tablet 2.5 mg PO BID RF: 0 guaifenesin [Mucinex] 600 mg Tablet Extended Release 12hr 1,200 mg PO Q12 RF: 0 montelukast 10 mg tablet 10 mg PO DAILY RF: 0 polyethylene glycol 3350 [Purelax] 17 gram/dose Powder 17 g PO DAILY PRN (Reason: Constipation) RF: 0 levalbuterol tartrate 45 mcg/actuation HFA aerosol inhaler 1 inha INH Q6H PRN (Reason: shortness of breath) Qty: 15 RF: 0 prednisone 10 mg Tablet 15 mg PO QAM Qty: 21 RF: 0 furosemide 40 mg tablet 40 mg PO DAILY PRN (Reason: weight gain) Qty: 10 RF: 0 potassium chloride 10 mEq capsule, extended release 10 meq PO DAILY PRN (Reason: take with furosemide/lasix ) Qty: 10 RF: 0 acetaminophen 325 mg Tablet 650 mg PO DIRECTED PRN (Reason: Fever Or Pain) RF: 0 lisinopril 20 mg tablet 20 mg PO DAILY RF: 0 tiotropium bromide 18 mcg capsule, w/inhalation device 1 cap Inhalation DAILY RF: 0 sennosides-docusate sodium [Senna Plus] 8.6-50 mg tablet 1 tab PO BID PRN (Reason: Constipation) RF: 0 benzonatate 100 mg capsule 100 mg PO QPM PRN (Reason: Cough) RF: 0 dutasteride 0.5 mg capsule 0.5 mg PO DAILY RF: 0 Dulera 200-5 mcg/actuation HFA aerosol inhaler 2 puff Inhalation BID RF: 0 Stand-Alone Forms: [employer]/Other Patient Handouts: Stents Ureteral, Kidney Stones Risk, Kidney Stones Prevent Discharge Orders: Discharge Order (Routine); Ordered 03/10/19 Ordered By: Derrek Coelho Admission Data Admit Date/Time: 03/08/19 21:33 Attending Provider: Evie Cabezas Admit Provider: Anne Cifuentes Primary Care Provider: Guerrero Morse Other Providers: Marii Mandujano David Service: Surgical Services Other Interventions: Discharge Summary Assessment (RN) Last Done: 03/10/19 12:37 DC Date/Time DO NOT enter until pt leaves facility: 03/10/19 13:46 Supervising Physician Co-Signing Physician Notes Resident Physician Supervision Note: I independently interviewed and examined the patient and verified the escamilla history and physical, reviewed labs and image studies, discussed the case with the resident Dr. Carrillo and agree with the findings and care plan. Time spent in discharge 35 min Resident Activity Tracking Resident Involvement: Resident Care Provided Care Provided: Adult Hospital Medicine
== END 2019-03-10 13:46 | disposition home health service (06) | DRG 660 ==
LOC: ED 15:58 → SUATTDRO 21:33 → 3W 21:33

== ENCOUNTER 2019-03-23 12:10 | Inpatient (IN) ==
[2019-03-23] MEDS ORDERED: ALBUT/IPRATROP 3MG/0.5MG NEB 3 ML VIAL NEB ONE (12:19)
[2019-03-23] MEDS ORDERED: methylPREDNISolone 125 MG/2 ML VIAL IV STA (12:19)
--- NOTE | 2019-03-23 12:43 | XRay Report ---
XR chest 1V portable CLINICAL HISTORY: Sepsis. COMPARISON STUDY: Chest radiograph January 22, 2019. Chest CT January 13, 2019. FINDINGS: Severe emphysema is noted. There is no pneumothorax or pleural effusion. There is no eviden ce for pulmonary edema. Calcified thoracic lymph nodes are incidentally noted. IMPRESSION: 1. No acute cardiopulmonary findings. 2. Severe emphysema. Electronically signed by: Des Mead M.D. 03/23/2019 12:42 PM
--- NOTE | 2019-03-23 12:59 | Emergency Department Note ---
Entered by Natty Aguirre acting as a scribe for History of Present Illness General Chief complaint: Respiratory Distress Time Seen by Provider: 03/23/19 12:11 Source: patient Mode of arrival: EMS History of Present Illness Provider complaint: Respiratory distress Onset (ago): day(s) 1 Location: chest Pain Consistency: + other (worsening) Associated symptoms: + denies other symptoms (diarrhea), + cough and + other (lower extremity edema); no fever/chills and no nausea/vomiting Treatments prior to arrival: other (nebulizer treatment) The patient is an 84 year old male who presents to the ED with complaints of worsening respiratory distress that began yesterday. The patient states that he had a stent put in 5 days ago for a kidney stone. The patient states that he is compliant with taking the antibiotic and steroid given to him by his PCP. Per EMS, the patient has had a lot of hematuria. EMS stated that he has had 2 nebulizer treatments today, one at 0630 and one en route to the hospital. The patient states that he feels like he has stuff in his chest but cannot cough it up. The patient notes that he has lower extremity edema that is not normally present. The patient denies fever, nausea, vomiting, and diarrhea. Home Medications Home Medications Medication Instructions Recorded Confirmed Type potassium chloride 10 meq PO DAILY PRN #10 cap 01/14/19 03/23/19 Rx apixaban 2.5 mg tablet 2.5 mg PO BID #60 tab 03/11/19 03/23/19 Rx benzonatate 100 mg capsule 100 mg PO QPM PRN #30 cap 03/11/19 03/23/19 Rx furosemide 40 mg tablet 40 mg PO DAILY PRN #10 tab 03/11/19 03/23/19 Rx lisinopril 20 mg tablet 20 mg PO DAILY #30 tab 03/11/19 03/23/19 Rx mometasone-formoterol HFA 200 2 puff INHALATION BID #13 gm 03/11/19 03/23/19 Rx mcg-5 mcg/actuation aerosol inhaler tiotropium bromide 18 mcg capsule 1 cap INHALATION DAILY #30 puffs 03/11/19 03/23/19 Rx with inhalation device acetaminophen 325 mg tablet 650 mg PO Q6H PRN #60 tab 03/15/19 03/23/19 Rx budesonide-formoterol HFA 160 2 puffs INH BID #10.2 gm 03/15/19 03/23/19 Rx mcg-4.5 mcg/actuation aerosol inhaler cholecalciferol (vitamin D3) 2,000 2,000 units PO DAILY #30 cap 03/15/19 03/23/19 Rx unit capsule polyethylene glycol 3350 17 17 g PO DAILY PRN #119 gm 03/15/19 03/23/19 Rx gram/dose oral powder albuterol sulfate 2 puff INHALATION Q4H PRN 03/23/19 03/23/19 History amoxicillin-pot clavulanate 1 tab PO BID 03/23/19 03/23/19 History aspirin [Aspirin Low Dose] 81 mg PO QAM 03/23/19 03/23/19 History docusate sodium [Stool Softener] 100 mg PO BID 03/23/19 03/23/19 History dutasteride 0.5 mg PO QAM 03/23/19 03/23/19 History guaifenesin [Mucinex] 1,200 mg PO Q12 PRN 03/23/19 03/23/19 History ipratropium-albuterol 3 ml INHALATION TID PRN 03/23/19 03/23/19 History metoprolol succinate 50 mg PO QAM 03/23/19 03/23/19 History montelukast 10 mg PO QAM 03/23/19 03/23/19 History potassium chloride [Klor-Con M20] 20 meq PO DAILY PRN 03/23/19 03/23/19 History pravastatin 20 mg PO QPM 03/23/19 03/23/19 History Allergies Allergy/AdvReac Type Severity Reaction Status Date / Time cilostazol Allergy Unknown dizziness, Verified 03/23/19 13:02 palpitations diltiazem Allergy Unknown diziness, Verified 03/23/19 13:02 palpitations tamsulosin Allergy Unknown Verified 03/23/19 16:52 simvastatin AdvReac Unknown dizziness Verified 03/23/19 13:02 Past Med/Surg History Medical History Nephrolithiasis (Acute) UTI (urinary tract infection) (Acute) Aspiration pneumonia Chronic kidney disease, stage 3 BPH (benign prostatic hyperplasia) Chronic diastolic heart failure Paroxysmal atrial fibrillation Tachycardia Hyperlipidemia Hypertension Hypoxia (Acute) COPD exacerbation (Acute) Chronic obstructive pulmonary disease (Acute) Acute dehydration (Inactive) Asthma Enlarged prostate Hematuria Hx of renal calculi Hypertension Leukocytosis Family History Mother Cancer thyroid Brother Myocardial infarction Other Family history non-contributory No significant family history Social History Preferred Language: [place] Communication Ability: Effective Beliefs That Will Affect Care: None marital status: Current Living Situation: Spouse Current Living Situation Comment: [facility] Feels Safe at Home: Yes Smoking Status: Current every day smoker Tobacco Type: cigarettes Cigarettes Per Day: 20 Second Hand Exposure: No Hx Alcohol Use: No Hx Substance Use: No Review of Systems See HPI for pertinent positives & negatives. and A total of 10 systems reviewed and were otherwise negative Physical Exam Vital Signs Vital Signs - 24 hr 03/23/19 12:16 03/23/19 12:18 03/23/19 12:35 Temperature 36.4 C L Temperature Source Oral Sepsis Recent Fever Within 48 Hours No Sepsis Action Taken by Nursing No Action Required Pulse Rate 98 H 110 H Pulse Rate [Left Finger] Pulse Rhythm Regular Pulse Strength Normal Respiratory Rate 24 28 H Respiratory Effort / Characteristics Non-Labored Spontaneous Labored Respiratory Depth Normal Respiratory Pattern Regular Blood Pressure 158/95 H Blood Pressure [Left Arm] Blood Pressure Mean 116 Blood Pressure Mean [Left Arm] Blood Pressure Position Sitting Pulse Oximetry 96 100 Oxygen Delivery Method Nasal Cannula Nasal Cannula Oxygen Flow Rate 2 2 Fraction of Inspired Oxygen SaO2/FiO2 Ratio 03/23/19 12:52 03/23/19 12:58 03/23/19 14:23 Temperature Temperature Source Sepsis Recent Fever Within 48 Hours Sepsis Action Taken by Nursing Pulse Rate 69 Pulse Rate [Left Finger] 102 H 110 H Pulse Rhythm Pulse Strength Respiratory Rate 20 24 24 Respiratory Effort / Characteristics Spontaneous Respiratory Depth Normal Respiratory Pattern Blood Pressure Blood Pressure [Left Arm] 132/91 131/80 Blood Pressure Mean Blood Pressure Mean [Left Arm] 104 97 Blood Pressure Position Pulse Oximetry 100 98 93 Oxygen Delivery Method BiPAP BiPAP Nasal Cannula Oxygen Flow Rate 7 2 Fraction of Inspired Oxygen 35 35 SaO2/FiO2 Ratio 280 GENERAL: Awake, alert, uncomfortable-appearing, moderately dyspneic. HENT: Normocephalic, atraumatic. Oropharynx with dry mucous membranes and otherwise unremarkable. EYES: Normal conjunctiva. Sclera non-icteric. NECK: Supple. No nuchal rigidity. FROM. No JVD. RESPIRATORY: Scattered wheezes and rhonchi. CARDIAC: Tachycardic, regular rhythm. Extremities warm and well perfused. Pulses equal. ABDOMEN: Soft, non-distended. No tenderness to palpation. No rebound or guarding. No masses. RECTAL: Deferred. MUSCULOSKELETAL: Severe pectus excavadum. Chest examination reveals no tenderness. The back is symmetrical on inspection without obvious abnormality. There is no CVA tenderness to palpation. No joint edema. LOWER EXTREMITIES: Calves are equal size bilaterally and non-tender. 1+ bilateral extremity pitting edema. No discoloration. NEURO: Normal sensorium. No sensory or motor deficits noted. SKIN: No rash or jaundice noted. Course 1213: Past medical records reviewed. The patient was evaluated in room C6. A co mplete history and physical exam was performed. 1332: I reevaluated the patient at this time and he is doing okay. I updated him on the test results. 1521: I discussed the case with Dr. Morales [facility] Hospitalist. She will evaluate the patient for further management. Consultations Consultation #1: I discussed the case with Dr. Morales [facility] Hospitalist. She will evaluate the patient for further management. Time: 15:21 Administered Medications Acetaminophen (Tylenol) 650 mg PO Q4H PRN PRN Reason: Pain or Fever Stop: 04/22/19 16:42 Last Admin: 03/23/19 23:54 Dose: 650 mg Documented by: [id number] Admin: 03/23/19 18:39 Dose: 650 mg Documented by: [id number] Acetylcysteine (Mucomyst 20%) 5 ml INH BIDR MARS Stop: 04/22/19 19:59 Last Admin: 03/23/19 19:33 Dose: 5 ml Documented by: [id number] Albuterol (Duoneb) 3 ml INH Q4R MARS Stop: 04/22/19 19:59 Last Admin: 03/23/19 23:17 Dose: 3 ml Documented by: [id number] Admin: 03/23/19 19:33 Dose: 3 ml Documented by: [id number] Budesonide/Formoterol Fumarate (Symbicort 160mcg/4.5mcg) 2 puffs INH BID MARS Stop: 04/22/19 20:59 Last Admin: 03/23/19 20:42 Dose: 2 puffs Documented by: [id number] Docusate Sodium (Colace) 100 mg PO BID MARS Stop: 04/22/19 20:59 Last Admin: 03/23/19 20:47 Dose: 100 mg Documented by: [id number] Methylprednisolone 60 mg/ (Syringe) 0.96 mls @ 1.5 mls/min IV Q8H MARS Stop: 04/22/19 19:59 Last Admin: 03/23/19 20:46 Dose: 1.5 mls/min Documented by: [id number] Miscellaneous (Order Awaiting Action) 1 ea N/A BID MARS Stop: 04/22/19 20:59 Last Admin: 03/23/19 20:53 Dose: Not Given Documented by: [id number] Montelukast Sodium (Singulair) 10 mg PO QPM MARS Stop: 04/22/19 20:59 Last Admin: 03/23/19 20:47 Dose: 10 mg Documented by: [id number] Pravastatin Sodium (Pravachol) 20 mg PO QPM MARS Stop: 04/22/19 20:59 Last Admin: 03/23/19 20:47 Dose: 20 mg Documented by: [id number] Discontinued Medications Albuterol (Duoneb) 12 ml NEB ONE ONE Stop: 03/23/19 12:20 Last Admin: 03/23/19 12:49 Dose: 12 ml Documented by: [id number] Furosemide (Lasix) 10 mg PO ONE ONE Stop: 03/23/19 15:14 Last Admin: 03/23/19 15:47 Dose: 10 mg Documented by: [id number] Doxycycline Hyclate 100 mg/ (Dextrose) 110 mls @ 50 mls/hr IV NOW STA Stop: 03/23/19 15:30 Last Infusion: 03/23/19 17:40 Dose: 0 mls/hr Documented by: [id number] Admin: 03/23/19 14:22 Dose: 50 mls/hr Documented by: [id number] Methylprednisolone (Solumedrol) 125 mg IV NOW STA Stop: 03/23/19 12:20 Last Admin: 03/23/19 12:51 Dose: 125 mg Documented by: [id number] Medical Decision Making Differential Diagnosis Differential diagnosis: Etiologies such as infections, reactive airway disease, COPD, pneumonia, pleural effusion, pulmonary edema, ARDS, pneumothorax, CHF, cardiac ischemia, cardiac tamponade, dysrhythmia, anemia, pulmonary embolism, musculoskeletal, gastrointestinal process, as well as others were entertained. Medical Records Attestation: I reviewed the patient's medical records. Home Medications Current Medication List: was personally reviewed by me Laboratory Data Attestation: I reviewed the patient's lab results. Result diagrams: 03/23/19 12:50 03/23/19 12:50 Lab Results 03/23/19 03/23/19 03/23/19 Range/Units 12:50 12:50 12:50 WBC 12.58 H (4.8-10.8) K/uL RBC 3.99 L (4.7-6.1) M/uL Hgb 13.8 L (14.0-18.0) g/dL Hct 41.1 L (42-52) % MCV 103.0 H (80-100) fL MCH 34.6 H (25-34) pg MCHC 33.6 (32-36) g/dL RDW Std Deviation 54.5 H (36.4-46.3) fL RDW Coeff of [place] 14.5 (11.5-14.5) % Plt Count 258 (130-400) K/uL MPV 9.7 (7.4-10.4) fL Immature Gran % (Auto) 0.5 % Neut % (Auto) 94.7 % Lymph % (Auto) 2.6 % [place] % (Auto) 2.2 % Eos % (Auto) 0.0 % Baso % (Auto) 0.0 % Immature Gran # (Auto) 0.06 H (0.00-0.02) K/uL Neut # (Auto) 11.91 H (1.4-6.5) K/uL Lymph # (Auto) 0.33 L (1.2-3.4) K/uL [place] # (Auto) 0.28 (0.11-0.59) K/uL Eos # (Auto) 0.00 (0-0.5) K/uL Baso # (Auto) 0.00 (0-0.2) K/uL PT 10.8 (9.0-12.0) Seconds INR 1.1 (0.9-1.1) VBG pH (7.36-7.41) VBG pCO2 (38-50) mmHg VBG pO2 mmHg VBG HCO3 mmol/L VBG O2 Saturation % VBG Base Excess mEq/L Barometric Pressure mm/Hg Sodium 138 (136-145) mmol/L Potassium 4.7 (3.5-5.1) mmol/L Chloride 103 (98-107) mmol/L Carbon Dioxide 30 (21-32) mmol/L Anion Gap 5.0 (3-11) BUN 28 H (7-18) mg/dl Creatinine 1.24 (0.6-1.4) mg/dl Est Cr Clr Drug Dosing 32.7 ml/min Est GFR ( Amer) 61.5 Est GFR (Non-Af Amer) 53.1 BUN/Creatinine Ratio 22.6 H (10-20) Glucose 121 H (70-99) mg/dl Lactate (0.4-2.0) mmol/L Calcium 9.1 (8.5-10.1) mg/dl Phosphorus 3.1 (2.5-4.9) mg/dl Magnesium 2.3 (1.8-2.4) mg/dl Total Bilirubin 0.5 (0.2-1) mg/dl Direct Bilirubin 0.1 (0-0.2) mg/dl AST 14 L (15-37) U/L ALT 20 (12-78) U/L Alkaline Phosphatase 128 H (45-117) U/L Troponin I < 0.015 (0-0.045) ng/ml NT-Pro-B Natriuret Pep 549 (0-1800) pg/ml Total Protein 7.2 (6.4-8.2) gm/dl Albumin 3.4 (3.4-5.0) gm/dl Globulin 3.8 (2.5-4.0) gm/dl Albumin/Globulin Ratio 0.9 (0.9-2) Urine Color Urine Appearance (Clear) Urine pH (4.5-7.5) Ur Specific [place] (1.000-1.030) Urine Protein (Negative) Urine Glucose (UA) (Negative) Urine Ketones (Negative) Urine Blood (Negative) Urine Nitrite (Negative) Urine Bilirubin (Negative) Urine Urobilinogen (Negative) Ur Leukocyte Esterase (Negative) Urine WBC (Auto) Urine RBC (Auto) U Epithel Cells (Auto) Urine Bacteria (Auto) Urine RBC (0-4) /hpf Urine WBC (0-5) /hpf Ur Epithelial Cells (0-5) /lpf Urine Bacteria (Negative) 03/23/19 03/23/19 03/23/19 Range/Units 12:50 12:50 13:30 WBC (4.8-10.8) K/uL RBC (4.7-6.1) M/uL Hgb (14.0-18.0) g/dL Hct (42-52) % MCV (80-100) fL MCH (25-34) pg MCHC (32-36) g/dL RDW Std Deviation (36.4-46.3) fL RDW Coeff of [place] (11.5-14.5) % Plt Count (130-400) K/uL MPV (7.4-10.4) fL Immature Gran % (Auto) % Neut % (Auto) % Lymph % (Auto) % [place] % (Auto) % Eos % (Auto) % Baso % (Auto) % Immature Gran # (Auto) (0.00-0.02) K/uL Neut # (Auto) (1.4-6.5) K/uL Lymph # (Auto) (1.2-3.4) K/uL [place] # (Auto) (0.11-0.59) K/uL Eos # (Auto) (0-0.5) K/uL Baso # (Auto) (0-0.2) K/uL PT (9.0-12.0) Seconds INR (0.9-1.1) VBG pH 7.31 L (7.36-7.41) VBG pCO2 60 H (38-50) mmHg VBG pO2 17 mmHg VBG HCO3 30 mmol/L VBG O2 Saturation < 60.0 % VBG Base Excess 2.1 mEq/L Barometric Pressure 730.0 mm/Hg Sodium (136-145) mmol/L Potassium (3.5-5.1) mmol/L Chloride (98-107) mmol/L Carbon Dioxide (21-32) mmol/L Anion Gap (3-11) BUN (7-18) mg/dl Creatinine (0.6-1.4) mg/dl Est Cr Clr Drug Dosing ml/min Est GFR ( Amer) Est GFR (Non-Af Amer) BUN/Creatinine Ratio (10-20) Glucose (70-99) mg/dl Lactate 2.2 H* (0.4-2.0) mmol/L Calcium (8.5-10.1) mg/dl Phosphorus (2.5-4.9) mg/dl Magnesium (1.8-2.4) mg/dl Total Bilirubin (0.2-1) mg/dl Direct Bilirubin (0-0.2) mg/dl AST (15-37) U/L ALT (12-78) U/L Alkaline Phosphatase (45-117) U/L Troponin I (0-0.045) ng/ml NT-Pro-B Natriuret Pep (0-1800) pg/ml Total Protein (6.4-8.2) gm/dl Albumin (3.4-5.0) gm/dl Globulin (2.5-4.0) gm/dl Albumin/Globulin Ratio (0.9-2) Urine Color Red Urine Appearance Cloudy A (Clear) Urine pH 5.5 (4.5-7.5) Ur Specific [place] 1.025 (1.000-1.030) Urine Protein 3+ H (Negative) Urine Glucose (UA) Negative (Negative) Urine Ketones Negative (Negative) Urine Blood 3+ H (Negative) Urine Nitrite Negative (Negative) Urine Bilirubin Negative (Negative) Urine Urobilinogen Negative (Negative) Ur Leukocyte Esterase 1+ H (Negative) Urine WBC (Auto) Not Reportable Urine RBC (Auto) INTERMEDIATE [employer] TENDER U Epithel Cells (Auto) Not Reportable Urine Bacteria (Auto) Not Reportable Urine RBC 5-10 H (0-4) /hpf Urine WBC 0-5 (0-5) /hpf Ur Epithelial Cells >30 H (0-5) /lpf Urine Bacteria 1+ H (Negative) Imaging Data Radiologist's Impression: Radiology results as stated below per my review and the radiologist's interpretation: XR chest 1V portable CLINICAL HISTORY: Sepsis. COMPARISON STUDY: Chest radiograph January 22, 2019. Chest CT January 13, 2019. FINDINGS: Severe emphysema is noted. There is no pneumothorax or pleural effusion. There is no evidence for pulmonary edema. Calcified thoracic lymph nodes are incidentally noted. IMPRESSION: 1. No acute cardiopulmonary findings. 2. Severe emphysema. Electronically signed by: Des Mead M.D. 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 On arrival patient is moderately dyspneic, afebrile with respiratory rate in the upper 20s on 2 L nasal cannula. Patient has increased work of breathing with accessory muscle use. He has scattered wheezes and rhonchi. Given the patient's moderate respiratory distress he was ordered for continuous DuoNeb, steroids and BiPAP. EKG demonstrates sinus tachycardia without overt acute ischemia. Chest x-ray without any focal infiltrates or evidence of CHF. However, findings consistent with emphysema. WBC 12.5, nonspecific in the setting of recent steroid course. H/H 13.8/41.1 improved from recent. Platelets within normal limits. VBG with mild hypercapnia with PCO2 of 60 and pH of 7.31. Lactate 2.2 however chemistry without acidosis. Troponin negative. BNP within normal limits. UA from indwelling catheter with 1+ leuk esterase, blood and 1+ bacteria but with epithelial cells> 30. Patient feeling improved after initial treatment with steroids, nebs, BiPAP. However given the patient's severe respiratory distress on arrival requiring BiPAP for rescue therapy reasonable to admit the patient for respiratory failure secondary to COPD exacerbation. Will treat additionally with doxycycline for atypical coverage. Patient agreeable with plan for admission. Case was discussed with Dr. Arianne Riley, [facility] [place], who will evaluate the patient for admission. Impression & Plan Respiratory failure with hypoxia and hypercapnia, COPD (chronic obstructive p ulmonary disease) Critical Care Time Critical Care Time: Yes Total Critical Care Time: 35 I have personally spent greater than 35 minutes of critical care time in the direct management of this patient. This includes bedside care, interpretation of diagnostic studies, and testing, discussion with consultants, patient, and family members, and other required patient management activities. This 35 minutes is in excess of all separately billable procedures. Discharge Plan Visit Data *Final* Discharge Date/Time: 03/23/19 15:56 Chief Complaint: Respiratory Distress ED Provider: Aguilar Day Discharge Problem: Respiratory failure with hypoxia and hypercapnia, COPD (chronic obstructive pulmonary disease) Patient Disposition: Admitted As Inpatient Discharge Instructions Interventions: ED Discharge Assessment Last Done: 03/23/19 15:56 Discharge Problem: Respiratory failure with hypoxia and hypercapnia Qualifiers: Chronicity: acute Qualified Code(s): J96.01 - Acute respiratory failure with hypoxia COPD (chronic obstructive pulmonary disease) Qualifiers: COPD type: COPD with acute exacerbation Qualified Code(s): J44.1 - Chronic obstructive pulmonary disease with (acute) exacerbation The scribe's documentation has been prepared under my direction and personally reviewed by me in its entirety. I confirm that the note above accurately reflects all work, treatment, procedures, and medical decision making performed by me.
[2019-03-23 13:06] LABS: Hematocrit (blood only) 41.1 % (42-52); Hemoglobin 13.8 g/dL (14.0-18.0); Immature Granulocytes # (auto) 0.06 K/uL (0.00-0.02); Immature Granulocytes % (auto) 0.5 %; Lymphocytes # (auto) 0.33 K/uL (1.2-3.4); Lymphocytes % (auto) 2.6 %; Mean Corpuscular Hgb Conc 33.6 g/dL (32-36); Mean Platelet Volume 9.7 fL (7.4-10.4); Monocytes # (auto) 0.28 K/uL (0.11-0.59); Monocytes % (auto) 2.2 %; Neutrophils # (auto) 11.91 K/uL (1.4-6.5); Neutrophils % (auto) 94.7 %; Platelet Count 258 K/uL (130-400); RDW Coefficient of Variation 14.5 % (11.5-14.5); RDW Standard Deviation 54.5 fL (36.4-46.3); Red Blood Count 3.99 M/uL (4.7-6.1); White Blood Count 12.58 K/uL (4.8-10.8)
[2019-03-23 13:10] LABS: Base Excess VBG 2.1 mEq/L; HCO3 VBG 30 mmol/L; Oxygen Saturation VBG < 60.0 %; PCO2 VBG 60 mmHg (38-50); PO2 VBG 17 mmHg; pH VBG 7.31 (7.36-7.41)
[2019-03-23] MEDS ORDERED: DOXYCYCLINE HYCLATE 100 MG in DEXTROSE 5% 100 ML IV STA (13:19)
[2019-03-23 13:21] LABS: INR 1.1 (0.9-1.1); Prothrombin Time 10.8 Seconds (9.0-12.0)
[2019-03-23 13:24] LABS: Alanine Aminotransferase 20 U/L (12-78); Albumin Level 3.4 gm/dl (3.4-5.0); Aspartate Aminotransferase 14 U/L (15-37); BUN Creatinine Ratio 22.6 (10-20); Bilirubin Direct 0.1 mg/dl (0-0.2); Blood Urea Nitrogen 28 mg/dl (7-18); Calcium 9.1 mg/dl (8.5-10.1); Carbon Dioxide 30 mmol/L (21-32); Chloride 103 mmol/L (98-107); Creatinine Clr Calc Pharmacy 32.7 ml/min; Est GFR (African American) 61.5; Est GFR (Non-African American) 53.1; Glucose 121 mg/dl (70-99); Magnesium 2.3 mg/dl (1.8-2.4); Potassium 4.7 mmol/L (3.5-5.1); Sodium 138 mmol/L (136-145)
[2019-03-23 13:29] LABS: Albumin Globulin Ratio 0.9 (0.9-2); Alkaline Phosphatase 128 U/L (45-117); Bilirubin,Total 0.5 mg/dl (0.2-1); Globulin 3.8 gm/dl (2.5-4.0); NT Pro B Type Natriuretic Pept 549 pg/ml (0-1800); Phosphorus 3.1 mg/dl (2.5-4.9); Total Protein 7.2 gm/dl (6.4-8.2); Troponin I < 0.015 ng/ml (0-0.045)
[2019-03-23 13:50] LABS: Bilirubin Urine Negative (Negative); Blood Urine 3+ (Negative); Color Urine Red; Glucose Urine UA Negative (Negative); Ketones Urine Negative (Negative); Leukocyte Esterase Urine 1+ (Negative); Nitrite Urine Negative (Negative); Protein Urine 3+ (Negative); Specific Gravity Urine 1.025 (1.000-1.030); Urobilinogen Urine Negative (Negative); pH Urine 5.5 (4.5-7.5)
[2019-03-23 13:52] LABS: Appearance Urine Cloudy (Clear)
[2019-03-23 14:11] LABS: Bacteria Urine 1+ (Negative); Epithelial Cell Urine >30 /lpf (0-5)
[2019-03-23 14:12] LABS: WBC Urine 0-5 /hpf (0-5)
[2019-03-23] MEDS ORDERED: FUROSEMIDE 40 MG TAB PO ONE (15:13)
--- NOTE | 2019-03-23 15:18 | History & Physical Report ---
Date of Service March 23, 2019 Assessment & Plan (1) COPD exacerbation: Was on BIPAP at one point in the ED, but currently stable on NC Requested BIPAP to be kept at bedside overnight in case of recurrent issue No home O2 use Chronic steroids, 15mg QD at baseline Improved s/p nebs, steroids Continue nebs, add mucomyst given pt felt upper airway congestion was an issue Solumedrol 60mg TID Was put on augmentin as outpt for wheezing on lung exam, however sx worsened after this and no signs of PNA on CXR, will hold further abx WBC with slight elevation in the setting of chronic steroid use (2) Chronic diastolic heart failure: CXR neg for fluid overload Will give 10mg lasix PO and monitor Daughter is confused about when to give lasix I advised that a reasonable plan would be to give a lower dose (maybe 10mg) with LE swelling similar to today to help avoid CHF exacerbation but to also avoid over diuresis with 40mg in a frail appearing 84 y/o Active HHN pt (3) Paroxysmal atrial fibrillation: continue home meds Holding eliquis due to urologic issues Aspirin 81mg also on hold, takes for prevention only (4) Hyperlipidemia: continue home meds (5) Hypertension: continue home meds (6) Chronic kidney disease, stage 3: Cr 1.2 Monitor (7) Obstruction of right ureteropelvic junction (UPJ) due to stone: Follows with Dr. Irizarry if needed Uncertain future plans Stent placed 2 weeks ago Eliquis, aspirin on hold UA pending Gross blood noted in tong (8) BPH (benign prostatic hyperplasia): continue home meds (9) Tobacco use disorder: Declines need for patch in the past (10) DVT prophylaxis: SCDs Holding rx proph due to urologic issues History of Present Illness Primary Care Provider: Mateo Morse MD 84 y/o M c/o SOB. Pt states he always has some SOB with ambulation, but that since yesterday the ALLEN has been worse and he has been having SOB at rest. He states that it started after he felt some upper airway congestion that he just could not clear. It was much worse today, so they came to the ED. Pt was admitted to the hospital 2 weeks ago for a renal stone that required a R UPJ stent. He has had ongoing bleeding despite being off of eliquis and aspirin and it is uncertain what the next plan is for this situation. Due to this hospitalization, pt was seen by PCP on Friday for routine f/u. It was noted that he had some wheezing on lung exam but no new SOB, so he was started on augmentin at that time. It was 3 days later that his SOB was noted to be worse. Pt denies fever, chest pain, abd pain, n/v/c/d, LE pain. Pt has no hx of home O2 use. Daughter notes that pt has had some LE swelling recently. This has been in his feet only. Their currently plan for this is 40mg PO lasix PRN swelling. She states that HHN comes out once a week. She has asked them when she should give the lasix as she has concerns about giving him too much. She states that different nurses have given her different answers. One has told her with any swelling, another stated only if it is moving up his LE. They an appt with Dia Galvan last Friday for pre-op eval and did not ask for clarification at that time. Daughter states she did give him lasix yesterday for some swelling around his feet in hopes that it would help his breathing, but it did not. He did not have any today due to coming to the ED. Pt states he does smoke daily, but that he goes outside and takes a few puffs, b ut then puts it out. Daughter states that he smokes 1ppd this way. He has not smoked much today or yesterday due to feeling so poorly. Allergies Allergy/AdvReac Type Severity Reaction Status Date / Time cilostazol Allergy Unknown dizziness, Verified 03/23/19 13:02 palpitations diltiazem Allergy Unknown diziness, Verified 03/23/19 13:02 palpitations simvastatin AdvReac Unknown dizziness Verified 03/23/19 13:02 Home Medications Home Medications Medication Instructions Recorded Confirmed Type potassium chloride 10 meq PO DAILY PRN #10 cap 01/14/19 03/23/19 Rx apixaban 2.5 mg tablet 2.5 mg PO BID #60 tab 03/11/19 03/23/19 Rx benzonatate 100 mg capsule 100 mg PO QPM PRN #30 cap 03/11/19 03/23/19 Rx furosemide 40 mg tablet 40 mg PO DAILY PRN #10 tab 03/11/19 03/23/19 Rx lisinopril 20 mg tablet 20 mg PO DAILY #30 tab 03/11/19 03/23/19 Rx mometasone-formoterol HFA 200 2 puff INHALATION BID #13 gm 03/11/19 03/23/19 Rx mcg-5 mcg/actuation aerosol inhaler tiotropium bromide 18 mcg capsule 1 cap INHALATION DAILY #30 puffs 03/11/19 03/23/19 Rx with inhalation device acetaminophen 325 mg tablet 650 mg PO Q6H PRN #60 tab 03/15/19 03/23/19 Rx budesonide-formoterol HFA 160 2 puffs INH BID #10.2 gm 03/15/19 03/23/19 Rx mcg-4.5 mcg/actuation aerosol inhaler cholecalciferol (vitamin D3) 2,000 2,000 units PO DAILY #30 cap 03/15/19 03/23/19 Rx unit capsule polyethylene glycol 3350 17 17 g PO DAILY PRN #119 gm 03/15/19 03/23/19 Rx gram/dose oral powder albuterol sulfate 2 puff INHALATION Q4H PRN 03/23/19 03/23/19 History amoxicillin-pot clavulanate 1 tab PO BID 03/23/19 03/23/19 History aspirin [Aspirin Low Dose] 81 mg PO QAM 03/23/19 03/23/19 History docusate sodium [Stool Softener] 100 mg PO BID 03/23/19 03/23/19 History dutasteride 0.5 mg PO QAM 03/23/19 03/23/19 History guaifenesin [Mucinex] 1,200 mg PO Q12 PRN 03/23/19 03/23/19 History ipratropium-albuterol 3 ml INHALATION TID PRN 03/23/19 03/23/19 History metoprolol succinate 50 mg PO QAM 03/23/19 03/23/19 History montelukast 10 mg PO QAM 03/23/19 03/23/19 History potassium chloride [Klor-Con M20] 20 meq PO DAILY PRN 03/23/19 03/23/19 History pravastatin 20 mg PO QPM 03/23/19 03/23/19 History Past Med/Surg History Medical History Nephrolithiasis (Acute) UTI (urinary tract infection) (Acute) Aspiration pneumonia Chronic kidney disease, stage 3 BPH (benign prostatic hyperplasia) Chronic diastolic heart failure Paroxysmal atrial fibrillation Tachycardia Hyperlipidemia Hypertension Hypoxia (Acute) COPD exacerbation (Acute) Chronic obstructive pulmonary disease (Acute) Acute dehydration (Inactive) Asthma Enlarged prostate Hematuria Hx of renal calculi Hypertension Leukocytosis Family History Mother Cancer thyroid Brother Myocardial infarction Other Family history non-contributory No significant family history Social History Preferred Language: Sami Communication Ability: Effective Beliefs That Will Affect Care: None marital status: Current Living Situation: Spouse Feels Safe at Home: Yes Smoking Status: Current some day smoker Tobacco Type: cigarettes Cigarettes Per Day: a pack per day Second Hand Exposure: No Hx Alcohol Use: No Hx Substance Use: No Review of Systems Review of Systems: Pertinent positives and negatives reviewed in HPI--all others negative Physical Exam Constitutional: + frail appearing and comfortable Eyes: normal visual humphrey by confrontation and + anicteric sclerae Neck: normal visual inspection and trachea midline Respiratory: normal respiratory effort; no respiratory distress Aus cultation: + diminished lung sounds and + wheezes Cardiovascular: Rate/Rhythm: regular rate and regular rhythm Gastrointestinal (Abdomen): Inspection/Auscultation: abdomen not distended Percussion/Palpation: abdomen soft; abdomen nontender Musculoskeletal: Head/Neck/Chest: normocephalic and head atraumatic 1+ pitting b/l LE edema, peripheral pulses intact Skin: no rashes, warm and dry Neurologic: awake; not confused Speech / Cognition: normal speech Psychiatric: A+Ox3, euthymic affect Results & Data Vital Signs (Past 12 Hours) Vital Signs Temp Pulse Pulse Resp BP BP Pulse Ox 03/23/19 15:12 104 H 24 141/85 H 100 03/23/19 14:23 110 H 24 131/80 93 03/23/19 12:58 102 H 24 132/91 98 03/23/19 12:52 69 20 100 03/23/19 12:18 36.4 C L 110 H 28 H 158/95 H 100 03/23/19 12:16 98 H 24 96 Diagnostic Findings CXR: neg for acute ECG Rhythm: sinus tachycardia Code Status & VTE Plan Code Status Full code VTE Prophylaxis Plan VTE Prophylaxis will be ordered: Yes PG Care Time/CCT Total # of Minutes Spent Total Time Spent with Patient: Total time spent is greater than 50% in coordination of care (as documented) at patient's floor/unit and/or counseling patient:
[2019-03-23] MEDS ORDERED: guaiFENesin 600 MG TABCR PO PRN (16:43)
[2019-03-23] MEDS ORDERED: POTASSIUM CHLORIDE 10 MEQ TABCR PO PRN (16:43)
[2019-03-23] MEDS ORDERED: POTASSIUM CHLORIDE 20 MEQ TABCR PO PRN (16:43)
[2019-03-23] MEDS ORDERED: BENZONATATE 100 MG CAPSULE PO PRN (16:43)
[2019-03-23] MEDS ORDERED: POLYETHYLENE (MIRALAX) 17 GM PACK PO PRN (16:43)
[2019-03-23] MEDS ORDERED: ONDANSETRON INJ 2 MG/ML 2 ML VIAL IV PRN (16:43)
[2019-03-23] MEDS ORDERED: ALBUTEROL HFA 8 GM INHALER INH PRN (16:43)
[2019-03-23] MEDS ORDERED: MAGNESIUM HYDROXIDE SUSP 30 ML UDC PO PRN (16:43)
[2019-03-23] MEDS ORDERED: ACETAMINOPHEN 325 MG TAB PO PRN (16:43)
[2019-03-23] MEDS: ACETAMINOPHEN 325 MG TAB PO PRN ×2 (18:39→23:54)
[2019-03-23] MEDS: ACETYLCYSTEINE 20% INHAL SOLN ***DISPENSED BY RESP. INH SCH (19:33)
[2019-03-23] MEDS: ALBUT/IPRATROP 3MG/0.5MG NEB 3 ML VIAL INH SCH ×2 (19:33→23:17)
[2019-03-23] MEDS: BUDESONIDE/FORMOTEROL FUMARATE 160/4.5 60 PUFFS/INHALER INH SCH (20:42)
[2019-03-23] MEDS: methylPREDNISolone 60 MG in SYRINGE 0 ML IV SCH (20:46)
[2019-03-23] MEDS: PRAVASTATIN SOD 20 MG TAB PO SCH (20:47)
[2019-03-23] MEDS: DOCUSATE SODIUM 100 MG CAP PO SCH (20:47)
[2019-03-23] MEDS: MONTELUKAST SODIUM 10 MG TABLET PO SCH (20:47)
[2019-03-23] MEDS ORDERED: methylPREDNISolone 125 MG/2 ML VIAL IV SCH (21:00)
[2019-03-23] MEDS ORDERED: NURSING DECISION MEDICATION ONE (21:21)
[2019-03-23] MEDS ORDERED: SODIUM CHLORIDE 0.65% NA SOLN 45 ML (OCEAN) PRN (21:24)
[2019-03-24] MEDS: ALBUT/IPRATROP 3MG/0.5MG NEB 3 ML VIAL INH SCH ×3 (03:23→07:00)
[2019-03-24] MEDS: methylPREDNISolone 60 MG in SYRINGE 0 ML IV SCH ×3 (04:09→21:19)
[2019-03-24 07:00] LABS: Hemoglobin 12.8 g/dL (14.0-18.0); Mean Corpuscular Hgb Conc 33.7 g/dL (32-36); Mean Platelet Volume 9.7 fL (7.4-10.4); Platelet Count 265 K/uL (130-400); RDW Coefficient of Variation 14.2 % (11.5-14.5); RDW Standard Deviation 53.5 fL (36.4-46.3); Red Blood Count 3.69 M/uL (4.7-6.1)
[2019-03-24] MEDS: ACETYLCYSTEINE 20% INHAL SOLN ***DISPENSED BY RESP. INH SCH ×2 (07:00→18:50)
[2019-03-24 07:10] LABS: Basophils # (auto) 0.01 K/uL (0-0.2); Immature Granulocytes % (auto) 0.4 %; Lymphocytes # (auto) 0.41 K/uL (1.2-3.4); Lymphocytes % (auto) 1.8 %; Monocytes # (auto) 0.97 K/uL (0.11-0.59); Monocytes % (auto) 4.2 %; Neutrophils # (auto) 21.71 K/uL (1.4-6.5); Neutrophils % (auto) 93.6 %
[2019-03-24] MEDS: LISINOPRIL 20 MG TAB PO SCH (08:24)
[2019-03-24] MEDS: DOCUSATE SODIUM 100 MG CAP PO SCH ×2 (08:24→21:19)
[2019-03-24] MEDS: METOPROLOL SUCC 50MG EXT REL TAB PO SCH (08:24)
[2019-03-24] MEDS: CHOLECALCIFEROL 1,000 UNITS TAB PO SCH (08:24)
[2019-03-24] MEDS: TIOTROPIUM BROMIDE 5 PUFF/90 MCG INH INH SCH (08:26)
[2019-03-24] MEDS: BUDESONIDE/FORMOTEROL FUMARATE 160/4.5 60 PUFFS/INHALER INH SCH ×2 (08:26→21:20)
[2019-03-24 09:45] LABS: BUN Creatinine Ratio 20.4 (10-20); Calcium 9.3 mg/dl (8.5-10.1); Creatinine Clr Calc Pharmacy 27.8 ml/min; Est GFR (African American) 50.5; Est GFR (Non-African American) 43.5; Potassium 5.2 mmol/L (3.5-5.1)
[2019-03-24] MEDS: ACETAMINOPHEN 325 MG TAB PO PRN ×3 (10:13→23:53)
[2019-03-24] MEDS ORDERED: LACTATED RINGER'S 1,000 ML IV SCH (11:00)
[2019-03-24] MEDS: LEVALBUTEROL HCL 1.25 MG/3 ML NEB NEB SCH ×2 (14:12→18:51)
[2019-03-24] MEDS: PRAVASTATIN SOD 20 MG TAB PO SCH (21:19)
[2019-03-24] MEDS: MONTELUKAST SODIUM 10 MG TABLET PO SCH (21:20)
--- NOTE | 2019-03-24 22:25 | Hospitalist Progress Note ---
Date of Service March 24, 2019 Assessment & Plan (1) COPD exacerbation: Was on BIPAP at one point in the ED, but currently stable on NC Requested BIPAP to be kept at bedside overnight in case of recurrent issue No home O2 use Chronic steroids, 15mg QD at baseline Improved s/p nebs, steroids Continue nebs, add mucomyst given pt felt upper airway congestion was an issue Solumedrol 60mg TID Was put on augmentin as outpt for wheezing on lung exam, however sx worsened after this and no signs of PNA on CXR, will hold further abx WBC with slight elevation in the setting of chronic steroid use On 03/24. Lacitc acid was elevated, patient appears to be breathing better. Concern over patient being dehydrated. Started IV fluids. Patient is also tachycardic, will place on levalbuterol. Will continue to monitor. Will hold antibiotics at this time. (2) Chronic diastolic heart failure: CXR neg for fluid overload Will give 10mg lasix PO and monitor Daughter is confused about when to give lasix I advised that a reasonable plan would be to give a lower dose (maybe 10mg) with LE swelling similar to today to help avoid CHF exacerbation but to also avoid over diuresis with 40mg in a frail appearing 84 y/o Active HHN pt Will continue to monitor. (3) Paroxysmal atrial fibrillation: continue home meds Holding eliquis due to urologic issues Aspirin 81mg also on hold, takes for prevention only (4) Hyperlipidemia: continue home meds (5) Hypertension: continue home meds (6) Chronic kidney disease, stage 3: Cr 1.2 Monitor (7) Obstruction of right ureteropelvic junction (UPJ) due to stone: Follows with Dr. Irizarry if needed Uncertain future plans Stent placed 2 weeks ago Eliquis, aspirin on hold UA pending Gross blood noted in tong Will consult urology. (8) BPH (benign prostatic hyperplasia): continue home meds (9) Tobacco use disorder: Declines need for patch in the past (10) DVT prophylaxis: SCDs Holding rx proph due to urologic issues Spent 35 minutes in management of patient. Subjective 84 yo male reports feeling better today. He still is not at baseline, but he is breathing better. Patient denies any fever chills, nausea, or vomiting. Review of Systems Review of Systems: All systems reviewed & are unremarkable except as noted in HPI & below Physical Exam Physical Exam: Constitutional: + frail appearing and comfortable Eyes: normal visual humphrey by confrontation and + anicteric sclerae Neck: normal visual inspection and trachea midline Respiratory: normal respiratory effort; no respiratory distress Auscultation: + diminished lung sounds but no wheezes Cardiovascular: Rate/Rhythm: regular rate and regular rhythm Gastrointestinal (Abdomen): Inspection/Auscultation: abdomen not distended Percussion/Palpation: abdomen soft; abdomen nontender Musculoskeletal: Head/Neck/Chest: normocephalic and head atraumatic 1+ pitting b/l LE edema, peripheral pulses intact Skin: no rashes, warm and dry Neurologic: awake; not confused Speech / Cognition: normal speech Psychiatric: A+Ox3, euthymic affect Results & Data Vital Signs (Past 12 Hours) Vital Signs Temp Pulse Resp BP Pulse Ox 03/24/19 19:08 36.5 C 101 H 22 114/88 100 03/24/19 18:51 96 H 20 95 03/24/19 14:59 36.6 C 106 H 19 113/63 99 03/24/19 14:20 97 03/24/19 14:12 118 H 28 H 94 03/24/19 12:22 36.6 C 113 H 19 99/72 L 95 PG Care Time/CCT Total # of Minutes Spent Total Time Spent with Patient: Total time spent is greater than 50% in coordination of care (as documented) at patient's floor/unit and/or counseling patient:
[2019-03-25] MEDS: LEVALBUTEROL HCL 1.25 MG/3 ML NEB NEB SCH ×4 (02:01→18:57)
[2019-03-25] MEDS: methylPREDNISolone 60 MG in SYRINGE 0 ML IV SCH ×2 (03:57→12:31)
[2019-03-25 05:50] LABS: Hematocrit (blood only) 36.9 % (42-52); Hemoglobin 12.1 g/dL (14.0-18.0); Mean Corpuscular Hgb Conc 32.8 g/dL (32-36); Mean Corpuscular Volume 102.5 fL (80-100); Mean Platelet Volume 9.8 fL (7.4-10.4); Platelet Count 240 K/uL (130-400); RDW Coefficient of Variation 14.3 % (11.5-14.5); RDW Standard Deviation 53.2 fL (36.4-46.3); White Blood Count 18.64 K/uL (4.8-10.8)
[2019-03-25 06:21] LABS: BUN Creatinine Ratio 31.6 (10-20); Calcium 9.3 mg/dl (8.5-10.1); Creatinine Clr Calc Pharmacy 31.4 ml/min; Est GFR (African American) 58.1; Est GFR (Non-African American) 50.1
[2019-03-25] MEDS: ACETYLCYSTEINE 20% INHAL SOLN ***DISPENSED BY RESP. INH SCH ×2 (06:59→18:57)
[2019-03-25] MEDS: LISINOPRIL 20 MG TAB PO SCH (08:25)
[2019-03-25] MEDS: DOCUSATE SODIUM 100 MG CAP PO SCH ×2 (08:25→21:51)
[2019-03-25] MEDS: CHOLECALCIFEROL 1,000 UNITS TAB PO SCH (08:25)
[2019-03-25] MEDS: METOPROLOL SUCC 50MG EXT REL TAB PO SCH (08:25)
[2019-03-25] MEDS: TIOTROPIUM BROMIDE 5 PUFF/90 MCG INH INH SCH (08:26)
[2019-03-25] MEDS: BUDESONIDE/FORMOTEROL FUMARATE 160/4.5 60 PUFFS/INHALER INH SCH ×2 (08:26→21:50)
--- NOTE | 2019-03-25 11:08 | Urology Progress Note ---
Date of Service March 25, 2019 Assessment & Plan (1) Obstruction of right ureteropelvic junction (UPJ) due to stone: 84 YO male, s/p right ureteral stent placement on 03/09/19 with a large right renal stone and hematuria. This patient does still need repeat ureteroscopy for definitive stone m anagement. Per patient, his marketing budget analyst believes that, in general, he is of acceptable anesthesia risk. Given patient's current status with COPD exacerbation we will avoid surgical intervention during current hospitalization. He is urologically stable with his stent and Venegas at present time, hematuria is baseline. Will plan for outpatient management in a few weeks when his cardiopulmonary status has improved. Recommend hand irrigation of Venegas if needed. Thank you for allowing us to participate in the inpatient care of Mr. Garcia. Please contact our service if we can be of further assistance during hospitalization. Subjective Mr. Garcia is a 84 YO male, established with Dr. Irizarry, s/p right ureteral stent placement on 03/09/19 with a large right renal stone and hematuria. He was admitted to the hospital for COPD exacerbation. His stone, right stent, and Venegas remain in place. His urine appears light pink which is baseline. He was evaluated in our outpatient clinic last week to discuss definitive stone management. His family was concerned about his ability to receive anesthesia given his cardiac/pulmonary comorbidities. Per patient he has since seen his marketing budget analyst who determined that he is of acceptable surgical risk. Patient states that stent and Venegas are not bothersome. No flank pain. No fevers/chills. No nausea/vomiting. +SOB with activity. Review of Systems Review of Systems: All systems reviewed & are unremarkable except as noted in HPI & below Physical Exam Physical Exam: NAD. Some heightened respiratory effort. +O2 via NC. No JVD. Abd soft/nontender. : bladder nondistended. Venegas in place, patent, draining light pink urine. A&Ox3, appropriate affect. Results & Data Vital Signs (Past 12 Hours) Vital Signs Temp Pulse Pulse Pulse Resp BP Pulse Ox 03/25/19 08:29 122 H 03/25/19 08:00 36.9 C 90 123 H 22 103/84 95 03/25/19 07:00 106 H 18 94 03/25/19 03:00 36.5 C 98 H 19 136/81 96 03/25/19 02:01 86 20 97 03/24/19 23:33 36.5 C 91 H 19 133/92 95
[2019-03-25] MEDS: ACETAMINOPHEN 325 MG TAB PO PRN ×2 (12:31→23:05)
[2019-03-25] MEDS ORDERED: AZITHROMYCIN 250 MG TAB PO ONE (14:30)
[2019-03-25] MEDS: cefTRIAXone SODIUM 1,000 MG in DEXTROSE 5% 50 ML IV SCH (14:45)
--- NOTE | 2019-03-25 15:25 | XRay Report ---
XR chest 2V routine CLINICAL HISTORY: 84 years-old Male presenting with hypoxia. TECHNIQUE: PA and lateral views of the chest were obtained. COMPARISON: 03/23/2019. FINDINGS: Atherosclerosis of the aortic arch. Cardiac silhouette top normal in size. Mild pulmonary basilar pro minence. Significant heterogeneity of lung markings with relative radiolucency. Scattered increased o pacity suggested at the lung bases in comparison to prior. No large effusion or pneumothorax. Exagger ated thoracic kyphosis. Osteopenia. Moderate to severe compression deformity in the mid to lower thor acic spine (T9) new since prior CT from 01/13/2019. A severe compression deformity in the upper to mid thoracic spine (T6) is unchanged. Upper abdomen normal. IMPRESSION: 1. Moderate to severe compression fracture of T9 new since January 2019. 2. Suspected bibasilar atelectasis increased from prior. 3. Mild volume overload here no tej pulmonary edema. 4. Suspected underlying chronic lung disease. This correlates with known emphysema. Electronically signed by: Gera Philip M.D. 03/25/2019 3:24 PM
[2019-03-25] MEDS: MONTELUKAST SODIUM 10 MG TABLET PO SCH (21:51)
[2019-03-25] MEDS: PRAVASTATIN SOD 20 MG TAB PO SCH (21:51)
[2019-03-26] MEDS: LEVALBUTEROL HCL 1.25 MG/3 ML NEB NEB SCH ×4 (02:33→19:03)
[2019-03-26] MEDS: ACETYLCYSTEINE 20% INHAL SOLN ***DISPENSED BY RESP. INH SCH ×2 (07:01→19:03)
--- NOTE | 2019-03-26 08:44 | Hospitalist Progress Note ---
Date of Service March 25, 2019 Assessment & Plan (1) COPD exacerbation: Acute respiratory failure, POA, resolved Was on BIPAP at one point in the ED, but currently stable on NC Requested BIPAP to be kept at bedside overnight in case of recurrent issue No home O2 use Chronic steroids, 15mg QD at baseline Improved s/p nebs, steroids Continue nebs, add mucomyst given pt felt upper airway congestion was an issue Solumedrol 60mg TID Was put on augmentin as outpt for wheezing on lung exam, however sx worsened after this and no signs of PNA on CXR, will hold further abx WBC with slight elevation in the setting of chronic steroid use On 03/24. Lacitc acid was elevated, patient appears to be breathing better. Concern over patient being dehydrated. Started IV fluids. On 03/25 Patient continues to require 2 liters nasal cannula. WBC are elevaed but gradually improving. Given that patient likely has component of COPD exacerbation, will place on antibiotics: ceftriaxone and azithromycin will continue to monitor in AM. Patient is also tachycardic, will place on levalbuterol. Will continue to monitor. Will hold antibiotics at this time. (2) Chronic diastolic heart failure: CXR neg for fluid overload Will give 10mg lasix PO and monitor Daughter is confused about when to give lasix I advised that a reasonable plan would be to give a lower dose (maybe 10mg) with LE swelling similar to today to help avoid CHF exacerbation but to also avoid over diuresis with 40mg in a frail appearing 84 y/o Active HHN pt Will continue to monitor. (3) Paroxysmal atrial fibrillation: continue home meds Holding eliquis due to urologic issues Aspirin 81mg also on hold, takes for prevention only (4) Hyperlipidemia: continue home meds (5) Hypertension: continue home meds (6) Chronic kidney disease, stage 3: Cr 1.3 improved after IVF. Monitor (7) Obstruction of right ureteropelvic junction (UPJ) due to stone: Follows with Dr. Irizarry if needed Uncertain future plans Stent placed 2 weeks ago Eliquis, aspirin on hold UA pending Gross blood noted in tong Will consult urology. (8) BPH (benign prostatic hyperplasia): continue home meds (9) Tobacco use disorder: Declines need for patch in the past (10) DVT prophylaxis: SCDs Holding rx proph due to urologic issues Spent 35 minutes in management of patient. Had multiple visits with patient. Subjective Late input for 03/25 Patient reports that he continues to feel better. He still requires 2 liters of oxygen. D/W nursing staff, unable to remove oxygen off him as he desaturates. Patient has been coughing but no sputum production. Patient denies fever, chills, nausea, vomiting. Review of Systems Review of Systems: All systems reviewed & are unremarkable except as noted in HPI & below Physical Exam Physical Exam: Constitutional: + frail appearing and comfortable Eyes: normal visual humphrey by confrontation and + anicteric sclerae Neck: normal visual inspection and trachea midline Respiratory: normal respiratory effort; no respiratory distress Auscultation: + diminished lung sounds but no wheezes Cardiovascular: Rate/Rhythm: regular rate and regular rhythm Gastrointestinal (Abdomen): Inspection/Auscultation: abdomen not distended Percussion/Palpation: abdomen soft; abdomen nontender Musculoskeletal: Head/Neck/Chest: normocephalic and head atraumatic 1+ pitting b/l LE edema, peripheral pulses intact Skin: no rashes, warm and dry Neurologic: awake; not confused Speech / Cognition: normal speech Psychiatric: A+Ox3, euthymic affect Results & Data Vital Signs (Past 12 Hours) Vital Signs Temp Pulse Pulse Pulse Resp BP Pulse Ox 03/26/19 08:00 94 H 03/26/19 07:27 36.6 C 99 H 20 136/92 96 03/26/19 07:03 95 H 18 96 03/26/19 04:33 36.5 C 86 24 128/65 96 03/26/19 02:33 73 20 97 03/25/19 23:04 36.8 C 80 18 133/66 97 PG Care Time/CCT Total # of Minutes Spent Total Time Spent with Patient: Total time spent is greater than 50% in coordination of care (as documented) at patient's floor/unit and/or counseling patient:
[2019-03-26] MEDS: methylPREDNISolone 60 MG in SYRINGE 0 ML IV SCH (09:19)
[2019-03-26] MEDS: BUDESONIDE/FORMOTEROL FUMARATE 160/4.5 60 PUFFS/INHALER INH SCH ×2 (09:19→21:01)
[2019-03-26] MEDS: AZITHROMYCIN 250 MG TAB PO SCH (09:20)
[2019-03-26] MEDS: TIOTROPIUM BROMIDE 5 PUFF/90 MCG INH INH SCH (09:20)
[2019-03-26] MEDS: CHOLECALCIFEROL 1,000 UNITS TAB PO SCH (09:21)
[2019-03-26] MEDS: METOPROLOL SUCC 50MG EXT REL TAB PO SCH (09:21)
[2019-03-26] MEDS: LISINOPRIL 20 MG TAB PO SCH (09:21)
[2019-03-26] MEDS: DOCUSATE SODIUM 100 MG CAP PO SCH ×3 (09:21→21:06)
[2019-03-26] MEDS: ACETAMINOPHEN 325 MG TAB PO PRN ×2 (11:45→21:12)
[2019-03-26] MEDS: cefTRIAXone SODIUM 1,000 MG in DEXTROSE 5% 50 ML IV SCH (15:12)
[2019-03-26] MEDS: PRAVASTATIN SOD 20 MG TAB PO SCH (21:00)
[2019-03-26] MEDS: MONTELUKAST SODIUM 10 MG TABLET PO SCH (21:01)
--- NOTE | 2019-03-26 23:21 | Hospitalist Progress Note ---
Date of Service March 26, 2019 Assessment & Plan (1) COPD exacerbation: Acute respiratory failure, POA, resolved Was on BIPAP at one point in the ED, but currently stable on NC Requested BIPAP to be kept at bedside overnight in case of recurrent issue No home O2 use Chronic steroids, 15mg QD at baseline Improved s/p nebs, steroids Continue nebs, add mucomyst given pt felt upper airway congestion was an issue Solumedrol 60mg TID Was put on augmentin as outpt for wheezing on lung exam, however sx worsened after this and no signs of PNA on CXR, will hold further abx WBC with slight elevation in the setting of chronic steroid use On 03/24. Lacitc acid was elevated, patient appears to be breathing better. Concern over patient being dehydrated. Started IV fluids. On 03/25 Patient continues to require 2 liters nasal cannula. WBC are elevaed but gradually improving. Given that patient likely has component of COPD exacerbation, will place on antibiotics: ceftriaxone and azithromycin will continue to monitor in AM. 0n 03/26 Patient cont. on antibiotics. Will transfer to medical. Patient continues to require oxygen. Will place on incentive spirometry and flutter valve. (2) Chronic diastolic heart failure: CXR neg for fluid overload Will give 10mg lasix PO and monitor Daughter is confused about when to give lasix I advised that a reasonable plan would be to give a lower dose (maybe 10mg) with LE swelling similar to today to help avoid CHF exacerbation but to also avoid over diuresis with 40mg in a frail appearing 84 y/o Active HHN pt Will continue to monitor. (3) Paroxysmal atrial fibrillation: continue home meds Holding eliquis due to urologic issues Aspirin 81mg also on hold, takes for prevention only (4) Hyperlipidemia: continue home meds (5) Hypertension: continue home meds (6) Chronic kidney disease, stage 3: Monitor, gradually improving (7) Obstruction of right ureteropelvic junction (UPJ) due to stone: Follows with Dr. Irizarry if needed Uncertain future plans Stent placed 2 weeks ago Eliquis, aspirin on hold UA pending Gross blood noted in tong Will consult urology. Appreciate input: will continue tong. (8) BPH (benign prostatic hyperplasia): continue home meds (9) Tobacco use disorder: Declines need for patch in the past (10) DVT prophylaxis: SCDs Holding rx proph due to urologic issues Spent 35 minutes in management of patient. Subjective Patient is 84 yo male who reports feeling well. He continues to be requiring nasal cannula oxygen. He reports no significant worsening or improvement. He wants to go home. However, had discussion with nursing and PT. He only ambulated 6 feet. Also would need 2 step. Review of Systems Review of Systems: All systems reviewed & are unremarkable except as noted in HPI & below Physical Exam Physical Exam: Constitutional: + frail appearing and comfortable Eyes: normal visual humphrey by confrontation and + anicteric sclerae Neck: normal visual inspection and trachea midline Respiratory: normal respiratory effort; no respiratory distress Auscultation: + diminished lung sounds but no wheezes Cardiovascular: Rate/Rhythm: regular rate and regular rhythm Gastrointestinal (Abdomen): Inspection/Auscultation: abdomen not distended Percussion/Palpation: abdomen soft; abdomen nontender Musculoskeletal: Head/Neck/Chest: normocephalic and head atraumatic 1+ pitting b/l LE edema, peripheral pulses intact Skin: no rashes, warm and dry Neurologic: awake; not confused Speech / Cognition: normal speech Psychiatric: A+Ox3, euthymic affect Results & Data Vital Signs (Past 12 Hours) Vital Signs Temp Pulse Pulse Pulse Resp BP Pulse Ox 03/26/19 19:08 91 H 20 96 03/26/19 17:32 36.7 C 103 H 20 119/74 95 03/26/19 16:00 72 03/26/19 15:24 36.3 C L 72 18 137/79 91 03/26/19 13:52 84 20 95 03/26/19 11:31 36.6 C 102 H 18 114/73 93 PG Care Time/CCT Total # of Minutes Spent Total Time Spent with Patient: Total time spent is greater than 50% in coordination of care (as documented) at patient's floor/unit and/or counseling patient:
[2019-03-27] MEDS: LEVALBUTEROL HCL 1.25 MG/3 ML NEB NEB SCH ×4 (01:38→18:47)
[2019-03-27] MEDS: ACETAMINOPHEN 325 MG TAB PO PRN ×2 (05:07→22:29)
[2019-03-27] MEDS: ACETYLCYSTEINE 20% INHAL SOLN ***DISPENSED BY RESP. INH SCH ×2 (07:11→18:47)
[2019-03-27 08:45] LABS: Hematocrit (blood only) 37.2 % (42-52); Hemoglobin 12.3 g/dL (14.0-18.0); Immature Granulocytes # (auto) 0.09 K/uL (0.00-0.02); Immature Granulocytes % (auto) 0.6 %; Lymphocytes # (auto) 1.02 K/uL (1.2-3.4); Lymphocytes % (auto) 6.4 %; Mean Corpuscular Hgb Conc 33.1 g/dL (32-36); Mean Corpuscular Volume 102.8 fL (80-100); Mean Platelet Volume 9.3 fL (7.4-10.4); Monocytes # (auto) 1.01 K/uL (0.11-0.59); Monocytes % (auto) 6.3 %; Neutrophils # (auto) 13.83 K/uL (1.4-6.5); Neutrophils % (auto) 86.7 %; Platelet Count 219 K/uL (130-400); RDW Coefficient of Variation 14.4 % (11.5-14.5); RDW Standard Deviation 54.6 fL (36.4-46.3); Red Blood Count 3.62 M/uL (4.7-6.1); White Blood Count 15.95 K/uL (4.8-10.8)
[2019-03-27 09:02] LABS: BUN Creatinine Ratio 40.7 (10-20); Calcium 9.5 mg/dl (8.5-10.1); Creatinine Clr Calc Pharmacy 36.2 ml/min; Est GFR (African American) 70.3; Est GFR (Non-African American) 60.7
[2019-03-27] MEDS: DOCUSATE SODIUM 100 MG CAP PO SCH ×2 (09:18→21:04)
[2019-03-27] MEDS: TIOTROPIUM BROMIDE 5 PUFF/90 MCG INH INH SCH (09:18)
[2019-03-27] MEDS: BUDESONIDE/FORMOTEROL FUMARATE 160/4.5 60 PUFFS/INHALER INH SCH ×2 (09:20→21:01)
[2019-03-27] MEDS: METOPROLOL SUCC 50MG EXT REL TAB PO SCH (09:21)
[2019-03-27] MEDS: CHOLECALCIFEROL 1,000 UNITS TAB PO SCH (09:21)
[2019-03-27] MEDS: LISINOPRIL 20 MG TAB PO SCH (09:22)
[2019-03-27] MEDS: AZITHROMYCIN 250 MG TAB PO SCH (09:22)
[2019-03-27] MEDS: methylPREDNISolone 60 MG in SYRINGE 0 ML IV SCH (09:23)
[2019-03-27] MEDS ORDERED: FUROSEMIDE 40 MG/4 ML VIAL IV STA (10:59)
[2019-03-27] MEDS ORDERED: FUROSEMIDE 40 MG in SYRINGE 0 ML IV ONE (11:30)
[2019-03-27] MEDS: cefTRIAXone SODIUM 1,000 MG in DEXTROSE 5% 50 ML IV SCH (14:34)
[2019-03-27] MEDS: MONTELUKAST SODIUM 10 MG TABLET PO SCH (21:00)
[2019-03-27] MEDS: PRAVASTATIN SOD 20 MG TAB PO SCH (21:01)
--- NOTE | 2019-03-27 23:48 | Hospitalist Progress Note ---
Date of Service March 27, 2019 Assessment & Plan (1) COPD exacerbation: Acute respiratory failure, POA, resolved Was on BIPAP at one point in the ED, but currently stable on NC Requested BIPAP to be kept at bedside overnight in case of recurrent issue No home O2 use Chronic steroids, 15mg QD at baseline Improved s/p nebs, steroids Continue nebs, add mucomyst given pt felt upper airway congestion was an issue Solumedrol 60mg TID Was put on augmentin as outpt for wheezing on lung exam, however sx worsened after this and no signs of PNA on CXR, will hold further abx WBC with slight elevation in the setting of chronic steroid use On 03/24. Lacitc acid was elevated, patient appears to be breathing better. Concern over patient being dehydrated. Started IV fluids. On 03/25 Patient continues to require 2 liters nasal cannula. WBC are elevaed but gradually improving. Given that patient likely has component of COPD exacerbation, will place on antibiotics: ceftriaxone and azithromycin will continue to monitor in AM. 0n 03/26 Patient cont. on antibiotics. Will transfer to medical. Patient continues to require oxygen. Will place on incentive spirometry and flutter valve. On 03/27 Patient had not used incentive spirometry or flutter valve. Informed nursing. This appears to be multi-factorial, patient has long standing COPD with some exacerbation. This is also accompanied by a component of atelectasis. Patient will continue on antibiotics. Also ordered one time dose of lasix IV.. Will continue steroids. (2) Chronic diastolic heart failure: CXR neg for fluid overload Will give 10mg lasix PO and monitor Daughter is confused about when to give lasix I advised that a reasonable plan would be to give a lower dose (maybe 10mg) with LE swelling similar to today to help avoid CHF exacerbation but to also avoid over diuresis with 40mg in a frail appearing 84 y/o Active HHN pt Will continue to monitor. As noted above. Ordered on time dose of lasix. (3) Paroxysmal atrial fibrillation: continue home meds Holding eliquis due to urologic issues Aspirin 81mg also on hold, takes for prevention only (4) Hyperlipidemia: continue home meds (5) Hypertension: continue home meds (6) Chronic kidney disease, stage 3: Monitor, gradually improving (7) Obstruction of right ureteropelvic junction (UPJ) due to stone: Follows with Dr. Irizarry if needed Uncertain future plans Stent placed 2 weeks ago Eliquis, aspirin on hold UA pending Gross blood noted in tong Will consult urology. Appreciate input: will continue tong. (8) BPH (benign prostatic hyperplasia): continue home meds (9) Tobacco use disorder: Declines need for patch in the past (10) DVT prophylaxis: SCDs Holding rx proph due to urologic issues Spent 35 minutes in management of patient. Updated family at bedside. Subjective Patient is a 84 yo male, who states that he really wants to go home. Patient feels like he is breathing better. He continues to require oxygen via nasal cannula. D/W case management, patient is ambulating only 6 feet. Though patient is not very active at home he does ambulate more than this. Review of Systems Review of Systems: All systems reviewed & are unremarkable except as noted in HPI & below Physical Exam Physical Exam: Constitutional: + frail appearing and comfortable Eyes: normal visual humphrey by confrontation and + anicteric sclerae Neck: normal visual inspection and trachea midline Respiratory: normal respiratory effort; no respiratory distress Auscultation: + diminished lung sounds but no wheezes Cardiovascular: Rate/Rhythm: regular rate and regular rhythm Gastrointestinal (Abdomen): Inspection/Auscultation: abdomen not distended Percussion/Palpation: abdomen soft; abdomen nontender Musculoskeletal: Head/Neck/Chest: normocephalic and head atraumatic 1+ pitting b/l LE edema, peripheral pulses intact Skin: no rashes, warm and dry Neurologic: awake; not confused Speech / Cognition: normal speech Psychiatric: A+Ox3, euthymic affect Results & Data Vital Signs (Past 12 Hours) Vital Signs Temp Pulse Pulse Resp BP Pulse Ox 03/27/19 23:01 36.6 C 97 H 18 109/71 97 03/27/19 18:47 112 H 93 03/27/19 15:35 36.5 C 105 H 20 101/69 94 03/27/19 13:23 80 18 95 PG Care Time/CCT Total # of Minutes Spent Total Time Spent with Patient: Total time spent is greater than 50% in coordination of care (as documented) at patient's floor/unit and/or counseling patient:
[2019-03-28] MEDS: LEVALBUTEROL HCL 1.25 MG/3 ML NEB NEB SCH ×4 (02:11→17:58)
[2019-03-28] MEDS: ACETAMINOPHEN 325 MG TAB PO PRN ×3 (05:25→22:09)
[2019-03-28] MEDS: ACETYLCYSTEINE 20% INHAL SOLN ***DISPENSED BY RESP. INH SCH ×2 (06:59→17:59)
[2019-03-28] MEDS: methylPREDNISolone 60 MG in SYRINGE 0 ML IV SCH (08:09)
[2019-03-28] MEDS: LISINOPRIL 20 MG TAB PO SCH (08:09)
[2019-03-28] MEDS: METOPROLOL SUCC 50MG EXT REL TAB PO SCH (08:09)
[2019-03-28] MEDS: TIOTROPIUM BROMIDE 5 PUFF/90 MCG INH INH SCH (08:09)
[2019-03-28] MEDS: AZITHROMYCIN 250 MG TAB PO SCH (08:09)
[2019-03-28] MEDS: CHOLECALCIFEROL 1,000 UNITS TAB PO SCH (08:09)
[2019-03-28] MEDS: BUDESONIDE/FORMOTEROL FUMARATE 160/4.5 60 PUFFS/INHALER INH SCH ×2 (08:10→20:41)
[2019-03-28] MEDS: DOCUSATE SODIUM 100 MG CAP PO SCH ×2 (08:14→20:41)
[2019-03-28] MEDS: FAMOTIDINE 20 MG TAB PO SCH ×2 (09:33→20:42)
[2019-03-28 12:49] LABS: Hematocrit (blood only) 38.3 % (42-52); Hemoglobin 12.5 g/dL (14.0-18.0); Mean Corpuscular Hgb Conc 32.6 g/dL (32-36); Mean Platelet Volume 9.9 fL (7.4-10.4); Platelet Count 204 K/uL (130-400); RDW Coefficient of Variation 14.6 % (11.5-14.5); RDW Standard Deviation 55.4 fL (36.4-46.3); Red Blood Count 3.72 M/uL (4.7-6.1); White Blood Count 17.01 K/uL (4.8-10.8)
[2019-03-28 13:14] LABS: BUN Creatinine Ratio 39.5 (10-20); Calcium 9.2 mg/dl (8.5-10.1); Creatinine Clr Calc Pharmacy 35.5 ml/min; Est GFR (African American) 68.8; Est GFR (Non-African American) 59.4; Potassium 4.9 mmol/L (3.5-5.1)
[2019-03-28] MEDS: cefTRIAXone SODIUM 1,000 MG in DEXTROSE 5% 50 ML IV SCH (14:20)
[2019-03-28] MEDS: MONTELUKAST SODIUM 10 MG TABLET PO SCH (20:41)
[2019-03-28] MEDS: PRAVASTATIN SOD 20 MG TAB PO SCH (20:41)
--- NOTE | 2019-03-28 23:56 | Hospitalist Progress Note ---
Date of Service March 28, 2019 Assessment & Plan (1) COPD exacerbation: Acute respiratory failure, POA, resolved Was on BIPAP at one point in the ED, but currently stable on NC Requested BIPAP to be kept at bedside overnight in case of recurrent issue No home O2 use Chronic steroids, 15mg QD at baseline Improved s/p nebs, steroids Continue nebs, add mucomyst given pt felt upper airway congestion was an issue Solumedrol 60mg TID Was put on augmentin as outpt for wheezing on lung exam, however sx worsened after this and no signs of PNA on CXR, will hold further abx WBC with slight elevation in the setting of chronic steroid use On 03/24. Lacitc acid was elevated, patient appears to be breathing better. Concern over patient being dehydrated. Started IV fluids. On 03/25 Patient continues to require 2 liters nasal cannula. WBC are elevaed but gradually improving. Given that patient likely has component of COPD exacerbation, will place on antibiotics: ceftriaxone and azithromycin will continue to monitor in AM. 0n 03/26 Patient cont. on antibiotics. Will transfer to medical. Patient continues to require oxygen. Will place on incentive spirometry and flutter valve. On 03/27 Patient had not used incentive spirometry or flutter valve. Informed nursing. This appears to be multi-factorial, patient has long standing COPD with some exacerbation. This is also accompanied by a component of atelectasis. Patient will continue on antibiotics. Also ordered one time dose of lasix IV.. Will continue steroids. 03/28 Improved on flutter valve and incentive spirometry. continue antibiotics. Anticpate discharge in next 24-48 hours (2) Chronic diastolic heart failure: CXR neg for fluid overload Will give 10mg lasix PO and monitor Daughter is confused about when to give lasix I advised that a reasonable plan would be to give a lower dose (maybe 10mg) with LE swelling similar to today to help avoid CHF exacerbation but to also avoid over diuresis with 40mg in a frail appearing 84 y/o Active HHN pt Will continue to monitor. As noted above. Ordered on time dose of lasix on 03/27. (3) Paroxysmal atrial fibrillation: continue home meds Holding eliquis due to urologic issues Aspirin 81mg also on hold, takes for prevention only (4) Hyperlipidemia: continue home meds (5) Hypertension: continue home meds (6) Chronic kidney disease, stage 3: Monitor, gradually improving (7) Obstruction of right ureteropelvic junction (UPJ) due to stone: Follows with Dr. Irizarry if needed Uncertain future plans Stent placed 2 weeks ago Eliquis, aspirin on hold UA pending Gross blood noted in tong Will consult urology. Appreciate input: will continue tong. (8) BPH (benign prostatic hyperplasia): continue home meds (9) Tobacco use disorder: Declines need for patch in the past (10) DVT prophylaxis: SCDs Holding rx proph due to urologic issues Spent 25 minutes in management of patient. Subjective Patient has been intermittently off his oxygen today.. He still requires 2 liters of oxygen intermittently Patient has been coughing but has noticed an improvement with the flutter valve. Patient refuses rehab placement, family is ok with taking him home. Explained would like to improve oxygen status before discharge. Patient denies fever, chills, nausea, vomiting. Review of Systems Review of Systems: All systems reviewed & are unremarkable except as noted in HPI & below Physical Exam Physical Exam: Constitutional: + frail appearing and comfortable Eyes: normal visual humphrey by confrontation and + anicteric sclerae Neck: normal visual inspection and trachea midline Respiratory: normal respiratory effort; no respiratory distress Auscultation: + diminished lung sounds but no wheezes Cardiovascular: Rate/Rhythm: regular rate and regular rhythm Gastrointestinal (Abdomen): Inspection/Auscultation: abdomen not distended Percussion/Palpation: abdomen soft; abdomen nontender Musculoskeletal: Head/Neck/Chest: normocephalic and head atraumatic 1+ pitting b/l LE edema, peripheral pulses intact Skin: no rashes, warm and dry Neurologic: awake; not confused Speech / Cognition: normal speech Psychiatric: A+Ox3, euthymic affect Results & Data Vital Signs (Past 12 Hours) Vital Signs Temp Pulse Pulse Resp BP BP Pulse Ox 03/28/19 23:00 36.5 C 76 20 124/73 96 03/28/19 18:00 98 H 18 99 03/28/19 15:00 36.6 C 100 H 18 108/73 96 03/28/19 14:40 102 H 18 93 PG Care Time/CCT Total # of Minutes Spent Total Time Spent with Patient: Total time spent is greater than 50% in coordination of care (as documented) at patient's floor/unit and/or counseling patient:
[2019-03-29] MEDS: LEVALBUTEROL HCL 1.25 MG/3 ML NEB NEB SCH ×3 (01:55→14:25)
[2019-03-29] MEDS: ACETYLCYSTEINE 20% INHAL SOLN ***DISPENSED BY RESP. INH SCH (07:17)
[2019-03-29] MEDS: methylPREDNISolone 60 MG in SYRINGE 0 ML IV SCH (07:55)
[2019-03-29] MEDS: AZITHROMYCIN 250 MG TAB PO SCH (07:55)
[2019-03-29] MEDS: LISINOPRIL 20 MG TAB PO SCH (07:55)
[2019-03-29] MEDS: CHOLECALCIFEROL 1,000 UNITS TAB PO SCH (07:55)
[2019-03-29] MEDS: METOPROLOL SUCC 50MG EXT REL TAB PO SCH (07:55)
[2019-03-29] MEDS: FAMOTIDINE 20 MG TAB PO SCH (07:56)
[2019-03-29] MEDS: TIOTROPIUM BROMIDE 5 PUFF/90 MCG INH INH SCH (07:56)
[2019-03-29] MEDS: BUDESONIDE/FORMOTEROL FUMARATE 160/4.5 60 PUFFS/INHALER INH SCH (07:57)
[2019-03-29 08:00] LABS: Basophils # (auto) 0.01 K/uL (0-0.2); Basophils % (auto) 0.1 %; Eosinophils # (auto) 0.01 K/uL (0-0.5); Eosinophils % (auto) 0.1 %; Hematocrit (blood only) 35.2 % (42-52); Hemoglobin 11.5 g/dL (14.0-18.0); Immature Granulocytes # (auto) 0.09 K/uL (0.00-0.02); Immature Granulocytes % (auto) 0.5 %; Lymphocytes # (auto) 1.11 K/uL (1.2-3.4); Lymphocytes % (auto) 6.7 %; Mean Corpuscular Hgb Conc 32.7 g/dL (32-36); Mean Corpuscular Volume 103.2 fL (80-100); Mean Platelet Volume 9.8 fL (7.4-10.4); Monocytes # (auto) 1.19 K/uL (0.11-0.59); Monocytes % (auto) 7.2 %; Neutrophils # (auto) 14.14 K/uL (1.4-6.5); Neutrophils % (auto) 85.4 %; Platelet Count 222 K/uL (130-400); RDW Coefficient of Variation 14.3 % (11.5-14.5); RDW Standard Deviation 53.9 fL (36.4-46.3); Red Blood Count 3.41 M/uL (4.7-6.1); White Blood Count 16.55 K/uL (4.8-10.8)
[2019-03-29] MEDS: DOCUSATE SODIUM 100 MG CAP PO SCH (08:00)
[2019-03-29 08:16] LABS: BUN Creatinine Ratio 42.2 (10-20); Calcium 9.2 mg/dl (8.5-10.1); Est GFR (Non-African American) 66.4; Potassium 4.9 mmol/L (3.5-5.1)
[2019-03-29] MEDS: ACETAMINOPHEN 325 MG TAB PO PRN (10:30)
[2019-03-29] MEDS: cefTRIAXone SODIUM 1,000 MG in DEXTROSE 5% 50 ML IV SCH (14:26)
--- NOTE | 2019-03-29 17:41 | Discharge Summary ---
Date of Service March 29, 2019 Admission HPI Per Admitting Provider 84 y/o M c/o SOB. Pt states he always has some SOB with ambulation, but that since yesterday the ALLEN has been worse and he has been having SOB at rest. He states that it started after he felt some upper airway congestion that he just could not clear. It was much worse today, so they came to the ED. Pt was admitted to the hospital 2 weeks ago for a renal stone that required a R UPJ stent. He has had ongoing bleeding despite being off of eliquis and aspirin and it is uncertain what the next plan is for this situation. Due to this hospitalization, pt was seen by PCP on Friday for routine f/u. It was noted that he had some wheezing on lung exam but no new SOB, so he was started on augmentin at that time. It was 3 days later that his SOB was noted to be worse. Pt denies fever, chest pain, abd pain, n/v/c/d, LE pain. Pt has no hx of home O2 use. Daughter notes that pt has had some LE swelling recently. This has been in his feet only. Their currently plan for this is 40mg PO lasix PRN swelling. She states that HHN comes out once a week. She has asked them when she should give the lasix as she has concerns about giving him too much. She states that different nurses have given her different answers. One has told her with any swelling, another stated only if it is moving up his LE. They an appt with Dia Galvan last Friday for pre-op eval and did not ask for clarification at that time. Daughter states she did give him lasix yesterday for some swelling around his feet in hopes that it would help his breathing, but it did not. He did not have any today due to coming to the ED. Pt states he does smoke daily, but that he goes outside and takes a few puffs, but then puts it out. Daughter states that he smokes 1ppd this way. He has not smoked much today or yesterday due to feeling so poorly. Principal Diagnosis COPD exacerbation Discharge Exam Constitutional + frail appearing and comfortable Eyes normal visual humphrey by confrontation and + anicteric sclerae Neck normal visual inspection and trachea midline Respiratory normal respiratory effort; no respiratory distress Auscultation: + diminished lung sounds and + wheezes Cardiovascular Rate/Rhythm: regular rate and regular rhythm Gastrointestinal (Abdomen) Inspection/Auscultation: abdomen not distended Percussion/Palpation: abdomen soft; abdomen nontender Musculoskeletal Head/Neck/Chest: normocephalic and head atraumatic Skin no rashes, warm and dry Neurologic awake; not confused Speech / Cognition: normal speech Psychiatric A+Ox3, euthymic affect Discharge Data Allergies Allergy/AdvReac Type Severity Reaction Status Date / Time cilostazol Allergy Unknown dizziness, Verified 03/23/19 13:02 palpitations diltiazem Allergy Unknown diziness, Verified 03/23/19 13:02 palpitations tamsulosin Allergy Unknown Verified 03/23/19 16:52 simvastatin AdvReac Unknown dizziness Verified 03/23/19 13:02 Consultations 03/23/19 13:43 ED Decision to Admit Stat 03/23/19 16:43 Consult Case Management - Discharge Planning Routine 03/24/19 13:24 Consult Urology Routine Hospital Course (1) COPD exacerbation: Treated with IV abx and steroids. Finished abx course while in the hospital. Discharged on steroid taper. - Discharged on home O2 with 2-step showing need for 2L NC at all times. (2) Chronic diastolic heart failure: CXR neg for fluid overload (3) Paroxysmal atrial fibrillation: Continue home meds Holding eliquis due to urologic issues - Discharged off ASA and Eliquis. Will need to restart once cleared by urology. - Should likely stop ASA all together given he has no known CAD and his increased bleeding risk. (4) Hyperlipidemia: continue home meds (5) Hypertension: continue home meds (6) Chronic kidney disease, stage 3: Monitor, gradually improving (7) Obstruction of right ureteropelvic junction (UPJ) due to stone: Follows with Dr. Irizarry - Will need to follow up with them in a few weeks for stent removal. Stent placed 2 weeks ago - Discharged with Venegas in place. - Eliquis, aspirin on hold (8) BPH (benign prostatic hyperplasia): continue home meds (9) Tobacco use disorder: Declines need for patch in the past (10) DVT prophylaxis: SCDs Total Time Total Time Spent Total Time Spent (In Minutes): 35 Total Time Includes: Examination of the Patient and Communication With Other Providers Discharge Plan Discharge Items Patient Disposition: Home - Home Health Services Reason For Visit: COPD EXACERBATION Discharge Diagnosis: COPD exacerbation Discharge Goals: Decrease discomfort and Diagnostic testing Activity: Resume your previous activity Non-emergency contact: Primary Care Provider and Certified Respiratory Therapist Call non-emergency contact if: your symptoms worsen Follow-up/Referrals: Guerrero Morse MD [Primary Care Provider] - 04/05/19 1:00 pm (follow up appointment with your primary care physican) Allison Kay CRNP [Nurse Practitioner] - 04/07/19 11:30 am (follow up appointment at the lung doctor office with the mid level provider, Allison Kay) Diet: Regular Addtl Provider Instructions: Mr. Garcia, You were admitted for a COPD exacerbation. We gave you IV steroids and antibiotics. By discharge, you were back to your baseline breathing. You do qualify for home oxygen, so we are arranging that for you. Please stop all antibiotics as you were on them for long enough while in the [facility]. I am giving you a steroid taper to help reduce the chance of a rebound breathing issue. Take them: Prednisone 30mg (3 tabs) by mouth every morning for 3 days, then Prednisone 20mg (2 tabs) by mouth every morning for 3 days, then Prednisone 10mg (1 tab) by mouth every morning for 3 days, then Stop. Follow up with your appointments next week with Dr. Morse and Ms. Kay. Please hold your aspirin and Eliquis (apixaban) until you are cleared by urology. Prescriptions: New prednisone 10 mg tablet 30 mg PO DAILY Qty: 18 RF: 0 Continued benzonatate 100 mg capsule 100 mg PO QPM PRN (Reason: Cough) Qty: 30 RF: 5 furosemide 40 mg tablet 40 mg PO DAILY PRN (Reason: weight gain) Qty: 10 RF: 0 lisinopril 20 mg tablet 20 mg PO DAILY Qty: 30 RF: 5 tiotropium bromide 18 mcg capsule, w/inhalation device 1 cap Inhalation DAILY Qty: 30 RF: 5 acetaminophen 325 mg tablet 650 mg PO Q6H PRN (Reason: Fever Or Pain) Qty: 60 RF: 0 cholecalciferol (vitamin D3) [Vitamin D3] 2,000 unit capsule 2,000 units PO DAILY Qty: 30 RF: 0 polyethylene glycol 3350 [Purelax] 17 gram/dose powder 17 g PO DAILY PRN (Reason: Constipation) Qty: 119 RF: 0 Symbicort 160-4.5 mcg/actuation HFA aerosol inhaler 2 puffs INH BID Qty: 10.2 RF: 0 potassium chloride 10 mEq capsule, extended release 10 meq PO DAILY PRN (Reason: take with furosemide/lasix ) Qty: 10 RF: 0 potassium chloride [Klor-Con M20] 20 mEq tablet,ER particles/crystals 20 meq PO DAILY PRN (Reason: Hypokalemia) RF: 0 pravastatin 20 mg tablet 20 mg PO QPM RF: 0 albuterol sulfate 90 mcg/actuation HFA aerosol inhaler 2 puff inhalation Q4H PRN (Reason: Shortness Of Breath) RF: 0 ipratropium-albuterol 0.5 mg-3 mg(2.5 mg base)/3 mL solution for nebulization 3 ml Inhalation TID PRN (Reason: Shortness Of Breath) RF: 0 metoprolol succinate 50 mg tablet extended release 24 hr 50 mg PO QAM RF: 0 montelukast 10 mg tablet 10 mg PO QAM RF: 0 dutasteride 0.5 mg capsule 0.5 mg PO QAM RF: 0 guaifenesin [Mucinex] 600 mg tablet extended release 12hr 1,200 mg PO Q12 PRN (Reason: Cough) RF: 0 docusate sodium [Stool Softener] 100 mg Tablet 100 mg PO BID RF: 0 Discontinued apixaban 2.5 mg tablet 2.5 mg PO BID Qty: 60 RF: 5 Dulera 200-5 mcg/actuation HFA aerosol inhaler 2 puff Inhalation BID Qty: 13 RF: 5 aspirin [Aspirin Low Dose] 81 mg Tablet,Delayed Release (Dr/Ec) 81 mg PO QAM RF: 0 amoxicillin-pot clavulanate 875-125 mg tablet 1 tab PO BID RF: 0 Stand-Alone Forms: [facility] Discharge Orders: Discharge Order (Routine); Ordered 03/29/19 Ordered By: Aj Garcia Admission Data Admit Date/Time: 03/23/19 15:12 Attending Provider: Aj Garcia Admit Provider: Arianne Riley Primary Care Provider: Guerrero Morse Other Providers: Arianne Riley ; Derrek Esteves ; Marquis Irizarry ; Michele Garcia I. ; Guerrero Lomas ; Alida Lei ; Peter Logan II ; Cecilia Lange Service: Medical Other Interventions: Discharge Summary Assessment (RN) Last Done: 03/29/19 14:00 DC Date/Time DO NOT enter until pt leaves facility: 03/29/19 16:30
== END 2019-03-29 16:30 | disposition home health service (06) | DRG 190 ==
LOC: ED 12:10 → 2E 15:12 → SUATTDRO 15:12 → 2E 15:56 → 4E 03-26 15:01
DX: J44.1 Chronic obstructive pulmonary disease with (acute) exacerbation; I48.0 Paroxysmal atrial fibrillation; I13.0 Hypertensive heart and chronic kidney disease with heart failure and stage 1 through stage 4 chronic kidney disease, or unspecified chronic kidney disease; E78.5 Hyperlipidemia, unspecified; N18.3 Chronic kidney disease, stage 3 (moderate); Z79.82 Long term (current) use of aspirin; N40.0 Benign prostatic hyperplasia without lower urinary tract symptoms; F17.210 Nicotine dependence, cigarettes, uncomplicated; I50.32 Chronic diastolic (congestive) heart failure; J96.00 Acute respiratory failure, unspecified whether with hypoxia or hypercapnia

== ENCOUNTER 2019-04-20 11:30 | Inpatient (IN) ==
[2019-04-20] MEDS ORDERED: METOCLOPRAMIDE HCL INJ 5 MG/ML 2 ML VIAL IV STA (12:11)
[2019-04-20] MEDS ORDERED: SODIUM CHLORIDE 0.9% 1000ML 1,000 ML IV ONE (12:11)
--- NOTE | 2019-04-20 12:25 | XRay Report ---
XR chest 1V portable CLINICAL HISTORY: Pt c/o hypoxia dyspnea COMPARISON STUDY: 03/25/2019 FINDINGS: Progressive interstitial change compared to the prior study. Mild cardiomegaly. Trace pleur al effusion left lung base. IMPRESSION: Developing interstitial congestive heart failure The above report was generated using voice recognition software. It may contain grammatical, syntax or spelling errors. Electronically signed by: Derrek Watkins M.D. 04/20/2019 12:24 PM
[2019-04-20 13:09] LABS: Creatine Kinase 39 U/L (39-308); Creatine Kinase MB 3.5 ng/ml (0.5-3.6); Troponin I < 0.015 ng/ml (0-0.045)
[2019-04-20] MEDS ORDERED: IOVERSOL 100ml IV PRN (13:25)
--- NOTE | 2019-04-20 13:55 | CT Scan Report ---
CT SCAN OF THE ABDOMEN AND PELVIS WITH IV CONTRAST CLINICAL HISTORY: Generalized abdominal pain. Difficulty with voiding. Recent lithotripsy. COMPARISON STUDY: Abdominal CT dated 03/08/2019. TECHNIQUE: Following the IV administration of 94 cc of Optiray 320, CT scan of the abdomen and pelvis is performed from the lung bases to the proximal femora. Images are reviewed in the axial, sagittal, and coronal planes. IV contrast was administered without complication. A dose lowering technique was utilized adhering to the principles of ALARA. The examination is compromised by motion artifact. CT DOSE: 266.98 mGy.cm FINDINGS: Lung bases: The heart is top normal in size and without pericardial effusion. The coronary arteries a re densely calcified. Advanced emphysematous change is present at both lung bases. There are small to moderate pleural effusions with bibasilar consolidation. These are new from 03/08/2019. There is a sma ll hiatal hernia. Liver: The contrast-enhanced liver is normal in size, contour, and attenuation. There is no intrahepa tic biliary ductal dilatation. There are scattered calcified hepatic granulomas. Otto and portal ve ins are patent. Gallbladder: The gallbladder is distended. There are gallstones identified, and the gallbladder wall appears mildly thickened and hyperemic. Mild pericholecystic stranding is suggested. Spleen: Normal in size and attenuation. There are numerous calcified splenic granulomas. Pancreas: Moderately atrophic and grossly unremarkable. Adrenal glands: Unremarkable. Kidneys: The contrast-enhanced kidneys demonstrate cortical atrophy. A right ureteral stent is in nathan ce. No calcifications are seen along the course of the stent. There is moderate right hydronephrosis. No hydronephrosis is seen on the left, noting a left-sided extrarenal pelvis. Small stone fragments are seen layering within the right renal pelvis. There are numerous nonobstructing right renal calcul i which measure up to 8 mm. No left renal calculi are clearly seen. Urothelial thickening and enhance ment is identified throughout the right ureter and involving the right renal collecting system. There is also urothelial thickening and enhancement identified within the left renal pelvis. There is asym metric perinephric stranding, right greater than left. There is heterogeneous perfusion of the right kidney, with foci of diminished attenuation in the lower pole and posterior interpolar region. The le ft kidney enhances homogeneously. Abdominal vasculature: There is advanced atherosclerotic calcification and mild ectasia of the abdomi nal aorta. Bowel: There is rectosigmoid fecal impaction and moderate constipation. No bowel obstruction is seen. The appendix is not identified and reported surgically absent Peritoneum: There is no intraperitoneal free air or abdominal ascites. Lymphadenopathy: None. Pelvic viscera: The bladder is distended. The bladder wall is thickened and hyperemic and there are f oci of intraluminal gas. There are small stone fragments within the bladder lumen. The prostate gland is enlarged and heterogeneous noting median lobe hypertrophy. Skeletal structures: The skeletal structures are osteopenic. There is a moderate chronic superior end plate compression deformity of L3. Lumbosacral spondylosis is noted. No lytic or blastic lesions are seen. Soft tissues: There is body wall edema. IMPRESSION: 1. The gallbladder is distended and there are small gallstones. The gallbladder wall is mildly thicke rony and hyperemic and there is faint pericholecystic stranding. Correlate clinically and with serum b ilirubin levels for evidence of acute cholecystitis. Consider right upper quadrant ultrasound for fur ther assessment. 2. A right ureteral stent is new from previous. No stones are seen along the course of the stent, and the large right ureteral stone seen on 03/08/2019 is no longer identified. 3. There is moderate right-sided hydronephrosis. 4. There are stone fragments layering within the right renal pelvis and the bladder, as well as numer ous additional nonobstructing right renal calculi. 5. The bladder is markedly distended. The bladder wall is thickened and hyperemic and there is intral uminal gas. Correlate clinically and with urinalysis for evidence of cystitis. 6. There is urothelial thickening seen within the right ureter and the right renal pelvis. Additional ly, there is heterogeneous enhancement of the right kidney with a striated nephrogram. The appearance is highly concerning for ascending urinary tract infection/pyelonephritis. Again, correlation with c linical findings and urinalysis will be required. 7. There is urothelial thickening and enhancement seen within the left renal pelvis. There is no left -sided hydronephrosis and the left kidney enhances homogeneously. Ascending infection would be imposs ible to exclude. 8. Advanced emphysema. 9. There are are small to moderate pleural effusions with bibasilar consolidation. This is new from p revious. 10. There is body wall edema. 11. There is rectosigmoid fecal impaction and moderate constipation. Electronically signed by: Vidal Love M.D. 04/20/2019 1:53 PM
[2019-04-20] MEDS ORDERED: ONDANSETRON INJ 2 MG/ML 2 ML VIAL IV STA (14:37)
[2019-04-20] MEDS ORDERED: MoRPHine SULFATE 2 MG/ML CARP IV STA (14:37)
[2019-04-20 15:11] LABS: Appearance Urine Turbid (Clear); Bacteria Urine Automated Negative (Negative); Bilirubin Urine Negative (Negative); Blood Urine 3+ (Negative); Color Urine Orange; Epithelial Cell Urine Auto >30 /lpf (0-5); Glucose Urine UA Negative (Negative); Ketones Urine Negative (Negative); Leukocyte Esterase Urine 3+ (Negative); Nitrite Urine Negative (Negative); Protein Urine 2+ (Negative); Specific Gravity Urine 1.017 (1.000-1.030); Urobilinogen Urine Negative (Negative); WBC Urine Automated >30 /hpf (0-5)
[2019-04-20 15:35] LABS: Calcium Oxalate Crystals Urine Present (None Prsent)
[2019-04-20 15:36] LABS: Cast Urine Automated 0 /lpf (0-5); RBC Urine Automated >30 /hpf (0-4)
[2019-04-20 15:49] LABS: Hematocrit (blood only) 34.4 % (42-52); Hemoglobin 11.5 g/dL (14.0-18.0); Mean Corpuscular Hgb Conc 33.4 g/dL (32-36); Mean Platelet Volume 9.4 fL (7.4-10.4); Platelet Count 181 K/uL (130-400); RDW Coefficient of Variation 14.8 % (11.5-14.5); RDW Standard Deviation 54.7 fL (36.4-46.3); Red Blood Count 3.44 M/uL (4.7-6.1); White Blood Count 12.29 K/uL (4.8-10.8)
[2019-04-20] MEDS ORDERED: PIPERACILL/TAZOBAC CONSULT ACTIVE PRN ×2 (16:00→18:47)
[2019-04-20] MEDS ORDERED: PIPERACILLIN/TAZOBACTAM 4.5 GM/120 ML BAG IV ONE (16:00)
[2019-04-20] MEDS ORDERED: DAPTOmycin 450 MG in SYRINGE 0 ML IV ONE (16:00)
[2019-04-20 16:13] LABS: Albumin Level 2.4 gm/dl (3.4-5.0); BUN Creatinine Ratio 21.2 (10-20); Calcium 8.1 mg/dl (8.5-10.1); Creatinine Clr Calc Pharmacy 50.3 ml/min; Est GFR (Non-African American) 78.5; Potassium 4.7 mmol/L (3.5-5.1)
[2019-04-20 16:15] LABS: Albumin Globulin Ratio 0.8 (0.9-2); Bilirubin,Total 0.4 mg/dl (0.2-1); Globulin 2.9 gm/dl (2.5-4.0); Total Protein 5.3 gm/dl (6.4-8.2)
[2019-04-20 16:26] LABS: Basophils # (auto) 0.02 K/uL (0-0.2); Basophils % (auto) 0.2 %; Eosinophils # (auto) 0.01 K/uL (0-0.5); Eosinophils % (auto) 0.1 %; Immature Granulocytes # (auto) 0.25 K/uL (0.00-0.02); Lymphocytes # (auto) 0.57 K/uL (1.2-3.4); Lymphocytes % (auto) 4.6 %; Monocytes % (auto) 4.9 %; Neutrophils # (auto) 10.84 K/uL (1.4-6.5); Neutrophils % (auto) 88.2 %
--- NOTE | 2019-04-20 18:17 | History & Physical Report ---
Date of Service April 20, 2019 Assessment & Plan (1) Urinary retention: Patient with Venegas in place. No UOP noted since 22:30 last evening. Venegas replaced in ER with adequate UOP, dark with sediment. Improvement in abdominal pain. BUN, Cr and electrolytes WNL -Maintain Venegas in place -Monitor strict I/Os -Monitor BUN, Cr and electrolytes for possible post-obstructive uropathy -Urology consultation appreciated Present on Admission?: Yes (2) Pyelonephritis: Patient afebrile, hemodynamically stable, nontoxic in appearance. UA with inflammation, negative for nitrites and bacteria. Heterogenous enhancement of right kidney suggestive of ascending UTI/pyelonephritis. ?if recent instrumentation with urinary obstruction may also cause enhancement of said kidney -Follow urine culture -Zosyn 3.375 gm IV q8 for now -Venegas management as above -Urology consultation as above Present on Admission?: Yes (3) Fecal impaction: Patient with no BM x [address] suggestive of fecal impaction. Patient is passing gas. Normoactive bowel sounds on physical exam. Abdomen is mildly distended and full feeling, nontender. -Colace 100mg po BID -Dulcolax 10mg NV daily -Magnesium Citrate now -Soap suds enema now -If above measures are unsuccessful will have to pursue manual disimpaction Present on Admission?: Yes (4) Cholecystitis: Patient afebrile, does have a neutrophil predominant leukocytosis. No RUQ tenderness, negative Pinto's sign, LFTs do not suggest acute cholecystitis. Patient would not be interested in having surgery for acute cholecystitis. -Check RUQUS -LFTs in AM -Zosyn as above -Continue to monitor for development of symptoms Present on Admission?: Yes (5) SOB (shortness of breath): Patient reports 2-3 days of progressive SOB. He is on baseline O2 levels with adequate saturation. Imaging suggestive of developing CHF -Check BNP -Lasix 40mg IV x 1 - closely monitor response -Strict I/Os -Daily weights (6) Hypertension: Blood pressure well controlled at present -Continue Lisinopril -Continue Metoprolol -Continue to monitor Present on Admission?: Yes (7) Paroxysmal atrial fibrillation: Patient presently in NSR -Continue Metoprolol Present on Admission?: Yes (8) BPH (benign prostatic hyperplasia): Patient with Venegas in place -Continue Dutasteride -Continue to monitor UOP and Venegas function Present on Admission?: Yes (9) COPD (chronic obstructive pulmonary disease): Chronic, O2 dependent COPD on Prednisone daily. Presently with no wheeze, no respiratory distress, adequate oxygenation on 2L. He is complaining of worsening SOB -Continue Prednisone 15mg po daily -Continue Dulera, DuoNebs, Albuterol, Tiotropium -Continue Singulair -Continue Benzonatate -Continue Guaifenasin (10) Chronic kidney disease, stage 3: BUN and Cr are at baseline. Venegas replaced now with adequate flow. -Monitor BUN, Cr, electrolytes and UOP -Avoid nephrotoxic meds -Renal dosing where needed Present on Admission?: Yes (11) Hyperlipidemia: Chronic. -Continue statin F/E/N - Lasix 40mg IV x 1 dose, monitor electrolytes, AHA diet as tolerated Ppx - Lovenox 30 Code - Full Dispo - Admit to medical floor History of Present Illness Chief Complaint: abdominal pain Primary Care Provider: Mateo Morse MD Leo Garcia is an 84yo C male with multiple medical problems presenting with abdominal pain. Patient with an indwelling Venegas catheter. He recently had an 11mm right renal pelvic stone. He had cystoscopy with laser lithotripsy and stent replacement performed by Dr. Logan. Patient was doing well. Emptied his Venegas bag last evening at appx 22:30. This AM there was nothing in the bag and he was having abdominal discomfort. He presented to the ER and the Venegas was replaced with adequate UOP. Additionally patient states he has not had a BM x 1 week. He denies fevers/chills/nausea/vomiting/abdominal pain. ER Course: Dapto. Reglan. Morphine. Zosyn Allergies Allergy/AdvReac Type Severity Reaction Status Date / Time tamsulosin Allergy Unknown Unknown Verified 04/20/19 13:19 cilostazol AdvReac Unknown dizziness, Verified 04/20/19 13:19 palpitations diltiazem AdvReac Unknown dizziness, Verified 04/20/19 13:19 palpitations simvastatin AdvReac Unknown dizziness Verified 04/20/19 13:19 Home Medications Home Medications Medication Instructions Recorded Confirmed Type benzonatate 100 mg capsule 100 mg PO QPM PRN #30 cap 03/11/19 04/20/19 Rx furosemide 40 mg tablet 40 mg PO DAILY PRN #10 tab 03/11/19 04/20/19 Rx tiotropium bromide 18 mcg capsule 1 cap INHALATION DAILY #30 puffs 03/11/19 04/20/19 Rx with inhalation device acetaminophen 325 mg tablet 650 mg PO Q6H PRN #60 tab 03/15/19 04/20/19 Rx cholecalciferol (vitamin D3) 2,000 2,000 units PO DAILY #30 cap 03/15/19 04/20/19 Rx unit capsule polyethylene glycol 3350 17 17 g PO DAILY PRN #119 gm 03/15/19 04/20/19 Rx gram/dose oral powder albuterol sulfate 2 puff INHALATION Q4H PRN 03/23/19 04/20/19 History docusate sodium [Stool Softener] 100 mg PO BID 03/23/19 04/20/19 History dutasteride 0.5 mg PO QAM 03/23/19 04/20/19 History guaifenesin [Mucinex] 1,200 mg PO BID 03/23/19 04/20/19 History ipratropium-albuterol 3 ml INHALATION TID PRN 03/23/19 04/20/19 History metoprolol succinate 50 mg PO QAM 03/23/19 04/20/19 History montelukast 10 mg PO QAM 03/23/19 04/20/19 History potassium chloride [Klor-Con M20] 20 meq PO DAILY PRN 03/23/19 04/20/19 History pravastatin 20 mg PO QPM 03/23/19 04/20/19 History ciprofloxacin 250 mg tablet 250 mg PO BID #14 tab 04/07/19 04/20/19 Rx Dulera 1 puff INHALATION Q12H 04/13/19 04/20/19 History lisinopril 20 mg PO QAM 04/13/19 04/20/19 History prednisone 15 mg PO DAILY 04/13/19 04/20/19 History Past Med/Surg History Medical History Paroxysmal atrial fibrillation Dx 07/28/18 during admission for COPD exacerbation. Initially in RVR, but spontaneously converted; started on Metoprolol and Eliquis. Eliquis discontinued during admission 03/08/19 due to hematuria. Weight loss (Acute) Vitamin D deficiency (Acute) Urinary retention (Acute) Sinus tachycardia (Acute) Pulmonary nodule (Acute) Pulmonary emphysema (Acute) PAD (peripheral artery disease) (Acute) Leukocytosis (Acute) Insomnia (Acute) Carotid artery plaque (Acute) <50% stenosis of internal carotids B/L by 2017 doppler Eda disease (Acute) Benign prostatic hyperplasia with urinary obstruction (Acute) Anemia (Acute) Actinic keratosis (Acute) Nephrolithiasis (Acute) UTI (urinary tract infection) (Acute) Chronic kidney disease, stage 3 Chronic diastolic heart failure 2+ ankle edema on exam at PAT Hyperlipidemia Ankle edema, bilateral Pt admits to eating salty snacks lately. Advised to avoid salt. Asthma Cachexia Enlarged prostate Hematuria 2/2 renal calculi Hypertension Indwelling Venegas catheter present On home oxygen therapy 2lpm via n/c Surgical History History of appendectomy History of colonoscopy History of cystoscopy WITH STENT, during admission 03/2019 History of lithotripsy History of tonsillectomy Hx of transurethral resection of prostate Family History Mother Cancer thyroid Brother Myocardial infarction Prostate cancer Father No problems noted. Other Family history non-contributory No significant family history Social History Preferred Language: Faroese Communication Ability: Effective Quality Control Assistant Required: No Beliefs That Will Affect Care: None marital status: Current Living Situation: Spouse Current Living Situation Comment: currently has home health services Other Information That Helps Us Care for You: No Feels Safe at Home: Yes Safety Concerns: Feels Safe At This Time Smoking Status: Former smoker Tobacco Type: cigarettes Cigarettes Per Day: 20 Do You Dip or Chew Tobacco: No Second Hand Exposure: No Tobacco Cessation Education Requested by Patient: No Hx Alcohol Use: No Hx Substance Use: No Review of Systems Review of Systems: All systems reviewed & are unremarkable except as noted in HPI & below Physical Exam Physical Exam: General: patient resting comfortably, NAD, non-toxic in appearance, AA&O x 4 Skin: warm, dry, intact, no rashes or lesions HEENT: NC/AT, PERRL, EOMI, anicteric sclera, conjunctiva without injection, external ear normal to inspection and nontender, nares patent, moist mucus membranes, dentition intact, no oropharyngeal lesions, neck supple, trachea midline, no LAD, no thyromegaly, no JVD Heart: +S1/S2, regular, no m/r/g Lungs: equal air entry bilaterally, no rales/rhonchi/wheezes Abd: +BS, soft, NT, mildly distended and full feeling, no masses/organomegaly/ascites Ext: warm, 2+ pulses in UE/LE bilaterally, no clubbing/cyanosis or edema. Venegas in place with 1200mL dark yellow urine Neuro: nonfocal, patient AA&O x 4, speech intact, no facial droop, moving all extremities on command with equal strength 5/5 Results & Data Vital Signs (Past 12 Hours) Vital Signs Temp Pulse Pulse Resp BP BP Pulse Ox 04/20/19 17:01 68 17 136/78 98 04/20/19 16:23 9 L 18 142/85 H 04/20/19 14:04 100 H 22 143/108 H 97 04/20/19 13:40 102 H 22 164/107 H 97 04/20/19 12:34 103 H 24 158/89 H 97 04/20/19 12:07 103 H 20 135/85 97 04/20/19 11:40 36.8 C 113 H 22 174/100 H 88 L Laboratory Results Lab Results 04/20/19 04/20/19 04/20/19 Range/Units 12:40 15:00 15:40 WBC 12.29 H (4.8-10.8) K/uL RBC 3.44 L (4.7-6.1) M/uL Hgb 11.5 L (14.0-18.0) g/dL Hct 34.4 L (42-52) % MCV 100.0 (80-100) fL MCH 33.4 (25-34) pg MCHC 33.4 (32-36) g/dL RDW Std Deviation 54.7 H (36.4-46.3) fL RDW Coeff of Ashley 14.8 H (11.5-14.5) % Plt Count 181 (130-400) K/uL MPV 9.4 (7.4-10.4) fL Immature Gran % (Auto) 2.0 % Neut % (Auto) 88.2 % Lymph % (Auto) 4.6 % [place] % (Auto) 4.9 % Eos % (Auto) 0.1 % Baso % (Auto) 0.2 % Immature Gran # (Auto) 0.25 H (0.00-0.02) K/uL Neut # (Auto) 10.84 H (1.4-6.5) K/uL Lymph # (Auto) 0.57 L (1.2-3.4) K/uL [place] # (Auto) 0.60 H (0.11-0.59) K/uL Eos # (Auto) 0.01 (0-0.5) K/uL Baso # (Auto) 0.02 (0-0.2) K/uL Sodium (136-145) mmol/L Potassium (3.5-5.1) mmol/L Chloride (98-107) mmol/L Carbon Dioxide (21-32) mmol/L Anion Gap (3-11) BUN (7-18) mg/dl Creatinine (0.6-1.4) mg/dl Est Cr Clr Drug Dosing ml/min Est GFR ( Amer) Est GFR (Non-Af Amer) BUN/Creatinine Ratio (10-20) Glucose (70-99) mg/dl Calcium (8.5-10.1) mg/dl Total Bilirubin (0.2-1) mg/dl AST (15-37) U/L ALT (12-78) U/L Alkaline Phosphatase (45-117) U/L Total Creatine Kinase 39 (39-308) U/L CK-MB (CK-2) 3.5 (0.5-3.6) ng/ml CK/CKMB % Calc 9.0 H (0-3.0) Troponin I < 0.015 (0-0.045) ng/ml NT-Pro-B Natriuret Pep (0-1800) pg/ml Total Protein (6.4-8.2) gm/dl Albumin (3.4-5.0) gm/dl Globulin (2.5-4.0) gm/dl Albumin/Globulin Ratio (0.9-2) Lipase (73-393) U/L Urine Color [place] Urine Appearance Turbid A (Clear) Urine pH 6.0 (4.5-7.5) Ur Specific [place] 1.017 (1.000-1.030) Urine Protein 2+ H (Negative) Urine Glucose (UA) Negative (Negative) Urine Ketones Negative (Negative) Urine Blood 3+ H (Negative) Urine Nitrite Negative (Negative) Urine Bilirubin Negative (Negative) Urine Urobilinogen Negative (Negative) Ur Leukocyte Esterase 3+ H (Negative) Urine WBC (Auto) >30 H (0-5) /hpf Urine RBC (Auto) >30 H (0-4) /hpf U Hyaline Cast (Auto) 0 (0-5) /lpf U Epithel Cells (Auto) >30 H (0-5) /lpf Urine Bacteria (Auto) Negative (Negative) Urine Crystals Not Reportable Calcium Oxalate Crystal Present A (None Prsent) Urine Yeast Budding w/ Hyphae A (None Prsent) 04/20/19 04/20/19 Range/Units 15:40 19:13 WBC (4.8-10.8) K/uL RBC (4.7-6.1) M/uL Hgb (14.0-18.0) g/dL Hct (42-52) % MCV (80-100) fL MCH (25-34) pg MCHC (32-36) g/dL RDW Std Deviation (36.4-46.3) fL RDW Coeff of Ashley (11.5-14.5) % Plt Count (130-400) K/uL MPV (7.4-10.4) fL Immature Gran % (Auto) % Neut % (Auto) % Lymph % (Auto) % [place] % (Auto) % Eos % (Auto) % Baso % (Auto) % Immature Gran # (Auto) (0.00-0.02) K/uL Neut # (Auto) (1.4-6.5) K/uL Lymph # (Auto) (1.2-3.4) K/uL [place] # (Auto) (0.11-0.59) K/uL Eos # (Auto) (0-0.5) K/uL Baso # (Auto) (0-0.2) K/uL Sodium 141 (136-145) mmol/L Potassium 4.7 (3.5-5.1) mmol/L Chloride 109 H (98-107) mmol/L Carbon Dioxide 30 (21-32) mmol/L Anion Gap 2.0 L (3-11) BUN 19 H (7-18) mg/dl Creatinine 0.89 (0.6-1.4) mg/dl Est Cr Clr Drug Dosing 50.3 ml/min Est GFR ( Amer) 91.0 Est GFR (Non-Af Amer) 78.5 BUN/Creatinine Ratio 21.2 H (10-20) Glucose 105 H (70-99) mg/dl Calcium 8.1 L (8.5-10.1) mg/dl Total Bilirubin 0.4 (0.2-1) mg/dl AST 17 (15-37) U/L ALT 26 (12-78) U/L Alkaline Phosphatase 110 (45-117) U/L Total Creatine Kinase (39-308) U/L CK-MB (CK-2) (0.5-3.6) ng/ml CK/CKMB % Calc (0-3.0) Troponin I (0-0.045) ng/ml NT-Pro-B Natriuret Pep 3321 H (0-1800) pg/ml Total Protein 5.3 L (6.4-8.2) gm/dl Albumin 2.4 L (3.4-5.0) gm/dl Globulin 2.9 (2.5-4.0) gm/dl Albumin/Globulin Ratio 0.8 L (0.9-2) Lipase 43 L (73-393) U/L Urine Color Urine Appearance (Clear) Urine pH (4.5-7.5) Ur Specific [place] (1.000-1.030) Urine Protein (Negative) Urine Glucose (UA) (Negative) Urine Ketones (Negative) Urine Blood (Negative) Urine Nitrite (Negative) Urine Bilirubin (Negative) Urine Urobilinogen (Negative) Ur Leukocyte Esterase (Negative) Urine WBC (Auto) (0-5) /hpf Urine RBC (Auto) (0-4) /hpf U Hyaline Cast (Auto) (0-5) /lpf U Epithel Cells (Auto) (0-5) /lpf Urine Bacteria (Auto) (Negative) Urine Crystals Calcium Oxalate Crystal (None Prsent) Urine Yeast (None Prsent) Diagnostic Findings XR chest 1V portable CLINICAL HISTORY: Pt c/o hypoxia dyspnea COMPARISON STUDY: 03/25/2019 FINDINGS: Progressive interstitial change compared to the prior study. Mild cardiomegaly. Trace pleural effusion left lung base. IMPRESSION: Developing interstitial congestive heart failure The above report was generated using voice recognition software. It may contain grammatical, syntax or spelling errors. Electronically signed by: Derrek Watkins M.D. 04/20/2019 12:24 PM Dictated: 04/20/19 1224 Transcribed: 04/20/19 1224 ++ ++++++++++++++++++++++++++++++++++++++++++++++++++++++++++++++++++++++++++++++++ ++++++++++++++++++++++++++++++++++++++++++++++++++++++++++++ CT SCAN OF THE ABDOMEN AND PELVIS WITH IV CONTRAST CLINICAL HISTORY: Generalized abdominal pain. Difficulty with voiding. Recent lithotripsy. COMPARISON STUDY: Abdominal CT dated 03/08/2019. TECHNIQUE: Following the IV administration of 94 cc of Optiray 320, CT scan of the abdomen and pelvis is performed from the lung bases to the proximal femora. Images are reviewed in the axial, sagittal, and coronal planes. IV contrast was administered without complication. A dose lowering technique was utilized adhering to the principles of ALARA. The examination is compromised by motion artifact. CT DOSE: 266.98 mGy.cm FINDINGS: Lung bases: The heart is top normal in size and without pericardial effusion. The coronary arteries are densely calcified. Advanced emphysematous change is present at both lung bases. There are small to moderate pleural effusions with bibasilar consolidation. These are new from 03/08/2019. There is a small hiatal hernia. Liver: The contrast-enhanced liver is normal in size, contour, and attenuation. There is no intrahepatic biliary ductal dilatation. There are scattered calcified hepatic granulomas. Otto and portal veins are patent. Gallbladder: The gallbladder is distended. There are gallstones identified, and the gallbladder wall appears mildly thickened and hyperemic. Mild pericholecystic stranding is suggested. Spleen: Normal in size and attenuation. There are numerous calcified splenic granulomas. Pancreas: Moderately atrophic and grossly unremarkable. Adrenal glands: Unremarkable. Kidneys: The contrast-enhanced kidneys demonstrate cortical atrophy. A right ureteral stent is in place. No calcifications are seen along the course of the stent. There is moderate right hydronephrosis. No hydronephrosis is seen on the left, noting a left-sided extrarenal pelvis. Small stone fragments are seen layering within the right renal pelvis. There are numerous nonobstructing right renal calculi which measure up to 8 mm. No left renal calculi are clearly seen. Urothelial thickening and enhancement is identified throughout the right ureter and involving the right renal collecting system. There is also urothelial thickening and enhancement identified within the left renal pelvis. There is asymmetric perinephric stranding, right greater than left. There is heterogeneous perfusion of the right kidney, with foci of diminished attenuation in the lower pole and posterior interpolar region. The left kidney enhances homogeneously. Abdominal vasculature: There is advanced atherosclerotic calcification and mild ectasia of the abdominal aorta. Bowel: There is rectosigmoid fecal impaction and moderate constipation. No bowel obstruction is seen. The appendix is not identified and reported surgically absent Peritoneum: There is no intraperitoneal free air or abdominal ascites. Lymphadenopathy: None. Pelvic viscera: The bladder is distended. The bladder wall is thickened and hyperemic and there are foci of intraluminal gas. There are small stone fragments within the bladder lumen. The prostate gland is enlarged and heterogeneous noting median lobe hypertrophy. Skeletal structures: The skeletal structures are osteopenic. There is a moderate chronic superior endplate compression deformity of L3. Lumbosacral spondylosis is noted. No lytic or blastic lesions are seen. Soft tissues: There is body wall edema. IMPRESSION: 1. The gallbladder is distended and there are small gallstones. The gallbladder wall is mildly thickened and hyperemic and there is faint pericholecystic stranding. Correlate clinically and with serum bilirubin levels for evidence of acute cholecystitis. Consider right upper quadrant ultrasound for further assessment. 2. A right ureteral stent is new from previous. No stones are seen along the course of the stent, and the large right ureteral stone seen on 03/08/2019 is no longer identified. 3. There is moderate right-sided hydronephrosis. 4. There are stone fragments layering within the right renal pelvis and the bladder, as well as numerous additional nonobstructing right renal calculi. 5. The bladder is markedly distended. The bladder wall is thickened and hyperemic and there is intraluminal gas. Correlate clinically and with urinalysis for evidence of cystitis. 6. There is urothelial thickening seen within the right ureter and the right renal pelvis. Additionally, there is heterogeneous enhancement of the right kidney with a striated nephrogram. The appearance is highly concerning for ascending urinary tract infection/pyelonephritis. Again, correlation with clinical findings and urinalysis will be required. 7. There is urothelial thickening and enhancement seen within the left renal pelvis. There is no left-sided hydronephrosis and the left kidney enhances homogeneously. Ascending infection would be impossible to exclude. 8. Advanced emphysema. 9. There are are small to moderate pleural effusions with bibasilar consolidation. This is new from previous. 10. There is body wall edema. 11. There is rectosigmoid fecal impaction and moderate constipation. Electronically signed by: Vidal Love M.D. 04/20/2019 1:53 PM Dictated: 04/20/19 1340 Transcribed: 04/20/19 1340 ECG Additional Comments: The study shows ST at 104, left axis deviation, DE=901, QRS=84, MJw=318, no acute ischemic changes Code Status & VTE Plan Code Status Full -NO MECHANICAL VENTILATION VTE Prophylaxis Plan VTE Prophylaxis will be ordered: Yes PG Care Time/CCT Total # of Minutes Spent Total Time Spent with Patient: Total time spent is greater than 50% in coordination of care (as documented) at patient's floor/unit and/or counseling patient: (1) BPH (benign prostatic hyperplasia) Lower urinary tract symptom presence: unspecified whether lower urinary tract symptoms present Qualified Code(s): N40.0 - Benign prostatic hyperplasia without lower urinary tract symptoms (2) COPD (chronic obstructive pulmonary disease) COPD type: COPD with acute exacerbation Qualified Code(s): J44.1 - Chronic obstructive pulmonary disease with (acute) exacerbation (3) Hypertension Hypertension type: essential hypertension Qualified Code(s): I10 - Essential (primary) hypertension
[2019-04-20] MEDS ORDERED: FUROSEMIDE 40 MG in SYRINGE 0 ML IV ONE (18:47)
[2019-04-20] MEDS ORDERED: BISACODYL 10 MG SUPP PR PRN (18:47)
[2019-04-20] MEDS ORDERED: ONDANSETRON INJ 2 MG/ML 2 ML VIAL IV PRN (18:47)
[2019-04-20] MEDS ORDERED: ALBUTEROL HFA 8 GM INHALER INH PRN (18:47)
[2019-04-20] MEDS ORDERED: BENZONATATE 100 MG CAPSULE PO PRN (18:47)
[2019-04-20] MEDS ORDERED: MAGNESIUM CITRATE 296 ML/BTL PO SCH (19:30)
--- NOTE | 2019-04-20 20:03 | Emergency Department Note ---
Entered by Didi Sullivan acting as a scribe for Gold Arreguin MD History of Present Illness General Chief complaint: Unable to Void Stated complaint: No urine output Time Seen by Provider: 04/20/19 12:05 Source: patient and RN notes reviewed Mode of arrival: EMS Limitations: no limitations History of Present Illness Onset (ago): day(s) (last night ) 1 Location: pelvis Pain Consistency: + other (worsening ) Relieved By: + none Exacerbated By: + other (unable to urinate) Associated symptoms: + denies other symptoms (stomach pain ) and + other (+constipation) Treatments prior to arrival: none The patient is an 84 year old male who presents to the ED with complaints of possible dehydration and constipation since 1 day ago. He reports that he has been unable to pee since last night. The patient stated that he is experiencing no abdominal pain and that he would like to be cleaned out and sent home. He also reported that he has had an enema in the past and found relief. The nurse stated that he was sent here from home health because they were worried that he was dehydrated and he has not had a bowel movement in [address] Bullock placed a right sided stent on the patient on April 15. Home Medications Home Medications Medication Instructions Recorded Confirmed Type benzonatate 100 mg capsule 100 mg PO QPM PRN #30 cap 03/11/19 04/20/19 Rx furosemide 40 mg tablet 40 mg PO DAILY PRN #10 tab 03/11/19 04/20/19 Rx tiotropium bromide 18 mcg capsule 1 cap INHALATION DAILY #30 puffs 03/11/19 04/20/19 Rx with inhalation device acetaminophen 325 mg tablet 650 mg PO Q6H PRN #60 tab 03/15/19 04/20/19 Rx cholecalciferol (vitamin D3) 2,000 2,000 units PO DAILY #30 cap 03/15/19 04/20/19 Rx unit capsule polyethylene glycol 3350 17 17 g PO DAILY PRN #119 gm 03/15/19 04/20/19 Rx gram/dose oral powder albuterol sulfate 2 puff INHALATION Q4H PRN 03/23/19 04/20/19 History docusate sodium [Stool Softener] 100 mg PO BID 03/23/19 04/20/19 History dutasteride 0.5 mg PO QAM 03/23/19 04/20/19 History guaifenesin [Mucinex] 1,200 mg PO BID 03/23/19 04/20/19 History ipratropium-albuterol 3 ml INHALATION TID PRN 03/23/19 04/20/19 History metoprolol succinate 50 mg PO QAM 03/23/19 04/20/19 History montelukast 10 mg PO QAM 03/23/19 04/20/19 History potassium chloride [Klor-Con M20] 20 meq PO DAILY PRN 03/23/19 04/20/19 History pravastatin 20 mg PO QPM 03/23/19 04/20/19 History ciprofloxacin 250 mg tablet 250 mg PO BID #14 tab 04/07/19 04/20/19 Rx Dulera 1 puff INHALATION Q12H 04/13/19 04/20/19 History lisinopril 20 mg PO QAM 04/13/19 04/20/19 History prednisone 15 mg PO DAILY 04/13/19 04/20/19 History Allergies Allergy/AdvReac Type Severity Reaction Status Date / Time tamsulosin Allergy Unknown Unknown Verified 04/20/19 13:19 cilostazol AdvReac Unknown dizziness, Verified 04/20/19 13:19 palpitations diltiazem AdvReac Unknown dizziness, Verified 04/20/19 13:19 palpitations simvastatin AdvReac Unknown dizziness Verified 04/20/19 13:19 Past Med/Surg History Medical History Paroxysmal atrial fibrillation Dx 07/28/18 during admission for COPD exacerbation. Initially in RVR, but spontaneously converted; started on Metoprolol and Eliquis. Eliquis discontinued during admission 03/08/19 due to hematuria. Weight loss (Acute) Vitamin D deficiency (Acute) Urinary retention (Acute) Sinus tachycardia (Acute) Pulmonary nodule (Acute) Pulmonary emphysema (Acute) PAD (peripheral artery disease) (Acute) Leukocytosis (Acute) Insomnia (Acute) Carotid artery plaque (Acute) <50% stenosis of internal carotids B/L by 2017 doppler Eda disease (Acute) Benign prostatic hyperplasia with urinary obstruction (Acute) Anemia (Acute) Actinic keratosis (Acute) Nephrolithiasis (Acute) UTI (urinary tract infection) (Acute) Chronic kidney disease, stage 3 Chronic diastolic heart failure 2+ ankle edema on exam at PAT Hyperlipidemia Ankle edema, bilateral Pt admits to eating salty snacks lately. Advised to avoid salt. Asthma Cachexia Enlarged prostate Hematuria 2/2 renal calculi Hypertension Indwelling Venegas catheter present On home oxygen therapy 2lpm via n/c Surgical History History of appendectomy History of colonoscopy History of cystoscopy WITH STENT, during admission 03/2019 History of lithotripsy History of tonsillectomy Hx of transurethral resection of prostate Family History Mother Cancer thyroid Brother Myocardial infarction Prostate cancer Father No problems noted. Other Family history non-contributory No significant family history Social History Preferred Language: Maltese Communication Ability: Effective [employer] Required: No Beliefs That Will Affect Care: None marital status: Current Living Situation: Spouse Current Living Situation Comment: currently has home health services Other Information That Helps Us Care for You: No Feels Safe at Home: Yes Safety Concerns: Feels Safe At This Time Smoking Status: Former smoker Tobacco Type: cigarettes Cigarettes Per Day: 20 Do You Dip or Chew Tobacco: No Second Hand Exposure: No Tobacco Cessation Education Requested by Patient: No Hx Alcohol Use: No Hx Substance Use: No Review of Systems See HPI for pertinent positives & negatives. and A total of 10 systems reviewed and were otherwise negative Physical Exam Vital Signs Vital Signs - 24 hr 04/20/19 11:40 04/20/19 12:07 04/20/19 12:34 Temperature 36.8 C Temperature Source Oral Sepsis Recent Fever Within 48 Hours No Sepsis Action Taken by Nursing No Action Required Pulse Rate 113 H Pulse Rate [Finger] 103 H 103 H Respiratory Rate 22 20 24 Blood Pressure 174/100 H Blood Pressure [Left Arm] 135/85 158/89 H Blood Pressure Mean 124 Blood Pressure Mean [Left Arm] 101 112 Pulse Oximetry 88 L 97 97 Oxygen Delivery Method Nasal Cannula Oxymask Oxymask Oxygen Flow Rate 2 2 2 04/20/19 13:40 04/20/19 14:04 04/20/19 16:23 Temperature Temperature Source Sepsis Recent Fever Within 48 Hours Sepsis Action Taken by Nursing Pulse Rate Pulse Rate [Finger] 102 H 100 H 9 L Respiratory Rate 22 22 18 Blood Pressure Blood Pressure [Left Arm] 164/107 H 143/108 H 142/85 H Blood Pressure Mean Blood Pressure Mean [Left Arm] 126 119 104 Pulse Oximetry 97 97 Oxygen Delivery Method Oxymask Nasal Cannula Oxymask Oxygen Flow Rate 2 2 2 04/20/19 17:01 Temperature Temperature Source Sepsis Recent Fever Within 48 Hours Sepsis Action Taken by Nursing Pulse Rate Pulse Rate [Finger] 68 Respiratory Rate 17 Blood Pressure Blood Pressure [Left Arm] 136/78 Blood Pressure Mean Blood Pressure Mean [Left Arm] 97 Pulse Oximetry 98 Oxygen Delivery Method Nasal Cannula Oxygen Flow Rate 2 GENERAL: Awake, alert, well-appearing, in no acute distress HENT: Normocephalic, atraumatic. Oropharynx unremarkable. EYES: Normal conjunctiva. Sclera non-icteric. NECK: Supple. No nuchal rigidity. FROM. No JVD. RESPIRATORY: Clear to auscultation. CARDIAC: Regular rate, normal rhythm. Extremities warm and well perfused. Pulses equal. ABDOMEN: Soft, non-distended. No tenderness to palpation. No rebound or guarding. No masses. RECTAL: Deferred. MUSCULOSKELETAL: Chest examination reveals no tenderness. The back is symmetrical on inspection without obvious abnormality. There is no CVA tenderness to palpation. No joint edema. LOWER EXTREMITIES: Calves are equal size bilaterally and non-tender. No edema. No discoloration. NEURO: Normal sensorium. No sensory or motor deficits noted. SKIN: No rash or jaundice noted. Course 1208: Past medical records reviewed. The patient was evaluated in room C1B. A complete history and physical exam was performed. 1350: I reevaluated the patient 1600: I reevaluated the patient. I discussed his results and discharge instructions and he verbalized complete understanding and agreement. 1620: [facility] The patient will be further evaluated and she recommended a Urology consult. 1629: I discussed the patients case with [facility] The patient will be further evaluated. Consultations Consultation #1: [facility] The patient will be further evaluated and she recommended a Urology consult. Time: 16:20 Consultation #2: I discussed the patients case with [facility]. The patient will be further evaluated. Time: 16:29 Administered Medications Discontinued Medications Sodium Chloride (Nss 1000ml) 1,000 mls @ 999 mls/hr IV .Q1H1M ONE Stop: 04/20/19 13:11 Last Infusion: 04/20/19 13:27 Dose: 0 mls/hr Documented by: [id number] Admin: 04/20/19 12:34 Dose: 999 mls/hr Documented by: [id number] Piperacillin Sod/Tazobactam Sod (Zosyn) 4.5 gm in 120 mls @ 240 mls/hr IV NOW ONE Stop: 04/20/19 16:29 Last Infusion: 04/20/19 16:59 Dose: 0 mls/hr Documented by: [id number] Admin: 04/20/19 16:20 Dose: 240 mls/hr Documented by: [id number] Daptomycin 450 mg/ Syringe 9 mls @ 4.5 mls/min IV NOW ONE; Protocol Stop: 04/20/19 16:01 Last Admin: 04/20/19 17:00 Dose: 4.5 mls/min Documented by: [id number] Ioversol (Optiray 320 100ml) 94 ml IV ONCE PRN PRN Reason: Interaction Checking Stop: 04/24/19 13:24 Last Admin: 04/20/19 13:26 Dose: 94 ml Documented by: [id number] Metoclopramide HCl (Reglan) 10 mg IV NOW STA Stop: 04/20/19 12:12 Last Admin: 04/20/19 12:36 Dose: 10 mg Documented by: [id number] Morphine Sulfate (Morphine Sulfate) 2 mg IV NOW STA Stop: 04/20/19 14:38 Last Admin: 04/20/19 14:41 Dose: 2 mg Documented by: [id number] Ondansetron HCl (Zofran) 4 mg IV NOW STA Stop: 04/20/19 14:38 Last Admin: 04/20/19 14:41 Dose: 4 mg Documented by: [id number] Medical Decision Making Differential Diagnosis Differential diagnosis: Etiologies such as biliary colic, cholecystitis, hepatitis, pancreatitis, cardiac disease, pancreatitis, gastritis, peptic ulcer disease, appendicitis, cystitis, diverticulitis, mesenteric ischemia, inflammatory bowel disease, il eus, bowel obstruction, testicular torsion, aortic pathology, shingles, as well as others were considered. Medical Records Attestation: I reviewed the patient's medical records. Home Medications Current Medication List: was personally reviewed by me Laboratory Data Attestation: I reviewed the patient's lab results. Result diagrams: 04/20/19 15:40 04/20/19 15:40 Lab Results 04/20/19 04/20/19 04/20/19 Range/Units 12:40 15:00 15:40 WBC 12.29 H (4.8-10.8) K/uL RBC 3.44 L (4.7-6.1) M/uL Hgb 11.5 L (14.0-18.0) g/dL Hct 34.4 L (42-52) % MCV 100.0 (80-100) fL MCH 33.4 (25-34) pg MCHC 33.4 (32-36) g/dL RDW Std Deviation 54.7 H (36.4-46.3) fL RDW Coeff of Ashley 14.8 H (11.5-14.5) % Plt Count 181 (130-400) K/uL MPV 9.4 (7.4-10.4) fL Immature Gran % (Auto) 2.0 % Neut % (Auto) 88.2 % Lymph % (Auto) 4.6 % Harvey % (Auto) 4.9 % Eos % (Auto) 0.1 % Baso % (Auto) 0.2 % Immature Gran # (Auto) 0.25 H (0.00-0.02) K/uL Neut # (Auto) 10.84 H (1.4-6.5) K/uL Lymph # (Auto) 0.57 L (1.2-3.4) K/uL Harvey # (Auto) 0.60 H (0.11-0.59) K/uL Eos # (Auto) 0.01 (0-0.5) K/uL Baso # (Auto) 0.02 (0-0.2) K/uL Sodium (136-145) mmol/L Potassium (3.5-5.1) mmol/L Chloride (98-107) mmol/L Carbon Dioxide (21-32) mmol/L Anion Gap (3-11) BUN (7-18) mg/dl Creatinine (0.6-1.4) mg/dl Est Cr Clr Drug Dosing ml/min Est GFR ( Amer) Est GFR (Non-Af Amer) BUN/Creatinine Ratio (10-20) Glucose (70-99) mg/dl Calcium (8.5-10.1) mg/dl Total Bilirubin (0.2-1) mg/dl AST (15-37) U/L ALT (12-78) U/L Alkaline Phosphatase (45-117) U/L Total Creatine Kinase 39 (39-308) U/L CK-MB (CK-2) 3.5 (0.5-3.6) ng/ml CK/CKMB % Calc 9.0 H (0-3.0) Troponin I < 0.015 (0-0.045) ng/ml Total Protein (6.4-8.2) gm/dl Albumin (3.4-5.0) gm/dl Globulin (2.5-4.0) gm/dl Albumin/Globulin Ratio (0.9-2) Lipase (73-393) U/L Urine Color Krebs Urine Appearance Turbid A (Clear) Urine pH 6.0 (4.5-7.5) Ur Specific [place] 1.017 (1.000-1.030) Urine Protein 2+ H (Negative) Urine Glucose (UA) Negative (Negative) Urine Ketones Negative (Negative) Urine Blood 3+ H (Negative) Urine Nitrite Negative (Negative) Urine Bilirubin Negative (Negative) Urine Urobilinogen Negative (Negative) Ur Leukocyte Esterase 3+ H (Negative) Urine WBC (Auto) >30 H (0-5) /hpf Urine RBC (Auto) >30 H (0-4) /hpf U Hyaline Cast (Auto) 0 (0-5) /lpf U Epithel Cells (Auto) >30 H (0-5) /lpf Urine Bacteria (Auto) Negative (Negative) Urine Crystals Not Reportable Calcium Oxalate Crystal Present A (None Prsent) Urine Yeast Budding w/ Hyphae A (None Prsent) 04/20/19 Range/Units 15:40 WBC (4.8-10.8) K/uL RBC (4.7-6.1) M/uL Hgb (14.0-18.0) g/dL Hct (42-52) % MCV (80-100) fL MCH (25-34) pg MCHC (32-36) g/dL RDW Std Deviation (36.4-46.3) fL RDW Coeff of Ashley (11.5-14.5) % Plt Count (130-400) K/uL MPV (7.4-10.4) fL Immature Gran % (Auto) % Neut % (Auto) % Lymph % (Auto) % Harvey % (Auto) % Eos % (Auto) % Baso % (Auto) % Immature Gran # (Auto) (0.00-0.02) K/uL Neut # (Auto) (1.4-6.5) K/uL Lymph # (Auto) (1.2-3.4) K/uL Harvey # (Auto) (0.11-0.59) K/uL Eos # (Auto) (0-0.5) K/uL Baso # (Auto) (0-0.2) K/uL Sodium 141 (136-145) mmol/L Potassium 4.7 (3.5-5.1) mmol/L Chloride 109 H (98-107) mmol/L Carbon Dioxide 30 (21-32) mmol/L Anion Gap 2.0 L (3-11) BUN 19 H (7-18) mg/dl Creatinine 0.89 (0.6-1.4) mg/dl Est Cr Clr Drug Dosing 50.3 ml/min Est GFR ( Amer) 91.0 Est GFR (Non-Af Amer) 78.5 BUN/Creatinine Ratio 21.2 H (10-20) Glucose 105 H (70-99) mg/dl Calcium 8.1 L (8.5-10.1) mg/dl Total Bilirubin 0.4 (0.2-1) mg/dl AST 17 (15-37) U/L ALT 26 (12-78) U/L Alkaline Phosphatase 110 (45-117) U/L Total Creatine Kinase (39-308) U/L CK-MB (CK-2) (0.5-3.6) ng/ml CK/CKMB % Calc (0-3.0) Troponin I (0-0.045) ng/ml Total Protein 5.3 L (6.4-8.2) gm/dl Albumin 2.4 L (3.4-5.0) gm/dl Globulin 2.9 (2.5-4.0) gm/dl Albumin/Globulin Ratio 0.8 L (0.9-2) Lipase 43 L (73-393) U/L Urine Color Urine Appearance (Clear) Urine pH (4.5-7.5) Ur Specific [place] (1.000-1.030) Urine Protein (Negative) Urine Glucose (UA) (Negative) Urine Ketones (Negative) Urine Blood (Negative) Urine Nitrite (Negative) Urine Bilirubin (Negative) Urine Urobilinogen (Negative) Ur Leukocyte Esterase (Negative) Urine WBC (Auto) (0-5) /hpf Urine RBC (Auto) (0-4) /hpf U Hyaline Cast (Auto) (0-5) /lpf U Epithel Cells (Auto) (0-5) /lpf Urine Bacteria (Auto) (Negative) Urine Crystals Calcium Oxalate Crystal (None Prsent) Urine Yeast (None Prsent) Imaging Data Radiologist's Impression: Radiology results as stated below per my review and the radiologist's interpretation: XR chest 1V portable CLINICAL HISTORY: Pt c/o hypoxia dyspnea COMPARISON STUDY: 03/25/2019 FINDINGS: Progressive interstitial change compared to the prior study. Mild cardiomegaly. Trace pleural effusion left lung base. IMPRESSION: Developing interstitial congestive heart failure The above report was generated using voice recognition software. It may contain grammatical, syntax or spelling errors. Electronically signed by: Derrek Watkins M.D. 04/20/2019 12:[address] SCAN OF THE ABDOMEN AND PELVIS WITH IV CONTRAST CLINICAL HISTORY: Generalized abdominal pain. Difficulty with voiding. Recent lithotripsy. COMPARISON STUDY: Abdominal CT dated 03/08/2019. TECHNIQUE: Following the IV administration of 94 cc of Optiray 320, CT scan of the abdomen and pelvis is performed from the lung bases to the proximal femora. Images are reviewed in the axial, sagittal, and coronal planes. IV contrast was administered without complication. A dose lowering technique was utilized adheri ng to the principles of ALARA. The examination is compromised by motion artifact. CT DOSE: 266.98 mGy.cm FINDINGS: Lung bases: The heart is top normal in size and without pericardial effusion. The coronary arteries are densely calcified. Advanced emphysematous change is present at both lung bases. There are small to moderate pleural effusions with bibasilar consolidation. These are new from 03/08/2019. There is a small hiatal hernia. Liver: The contrast-enhanced liver is normal in size, contour, and attenuation. There is no intrahepatic biliary ductal dilatation. There are scattered calcifie d hepatic granulomas. Otto and portal veins are patent. Gallbladder: The gallbladder is distended. There are gallstones identified, and the gallbladder wall appears mildly thickened and hyperemic. Mild pericholecystic stranding is suggested. Spleen: Normal in size and attenuation. There are numerous calcified splenic granulomas. Pancreas: Moderately atrophic and grossly unremarkable. Adrenal glands: Unremarkable. Kidneys: The contrast-enhanced kidneys demonstrate cortical atrophy. A right ureteral stent is in place. No calcifications are seen along the course of the stent. There is moderate right hydronephrosis. No hydronephrosis is seen on the left, noting a left-sided extrarenal pelvis. Small stone fragments are seen layering within the right renal pelvis. There are numerous nonobstructing right renal calculi which measure up to 8 mm. No left renal calculi are clearly seen. Urothelial thickening and enhancement is identified throughout the right ureter and involving the right renal collecting system. There is also urothelial thickening and enhancement identified within the left renal pelvis. There is asymmetric perinephric stranding, right greater than left. There is heter ogeneous perfusion of the right kidney, with foci of diminished attenuation in the lower pole and posterior interpolar region. The left kidney enhances homogeneously. Abdominal vasculature: There is advanced atherosclerotic calcification and mild ectasia of the abdominal aorta. Bowel: There is rectosigmoid fecal impaction and moderate constipation. No bowel obstruction is seen. The appendix is not identified and reported surgically absent Peritoneum: There is no intraperitoneal free air or abdominal ascites. Lymphadenopathy: None. Pelvic viscera: The bladder is distended. The bladder wall is thickened and hyperemic and there are foci of intraluminal gas. There are small stone fragments within the bladder lumen. The prostate gland is enlarged and heterogeneous noting median lobe hypertrophy. Skeletal structures: The skeletal structures are osteopenic. There is a moderate chronic superior endplate compression deformity of L3. Lumbosacral spondylosis is noted. No lytic or blastic lesions are seen. Soft tissues: There is body wall edema. IMPRESSION: 1. The gallbladder is distended and there are small gallstones. The gallbladder wall is mildly thickened and hyperemic and there is faint pericholecystic stranding. Correlate clinically and with serum bilirubin levels for evidence of acute cholecystitis. Consider right upper quadrant ultrasound for further assessment. 2. A right ureteral stent is new from previous. No stones are seen along the course of the stent, and the large right ureteral stone seen on 03/08/2019 is no longer identified. 3. There is moderate right-sided hydronephrosis. 4. There are stone fragments layering within the right renal pelvis and the bladder, as well as numerous additional nonobstructing right renal calculi. 5. The bladder is markedly distended. The bladder wall is thickened and hyperemic and there is intraluminal gas. Correlate clinically and with urinalysis for evidence of cystitis. 6. There is urothelial thickening seen within the right ureter and the right renal pelvis. Additionally, there is heterogeneous enhancement of the right kidney with a striated nephrogram. The appearance is highly concerning for ascending urinary tract infection/pyelonephritis. Again, correlation with clinical findings and urinalysis will be required. 7. There is urothelial thickening and enhancement seen within the left renal pelvis. There is no left-sided hydronephrosis and the left kidney enhances homogeneously. Ascending infection would be impossible to exclude. 8. Advanced emphysema. 9. There are are small to moderate pleural effusions with bibasilar consolidation. This is new from previous. 10. There is body wall edema. 11. There is rectosigmoid fecal impaction and moderate constipation. Electronically signed by: Vidal Love M.D. 04/20/2019 1:53 PM ECG Data Attestation: I personally reviewed and interpreted this ECG as follows: Indication: other (unable to void ) Rate (beats per minute): 104 Rhythm: sinus tachycardia Findings: + other (left atrial enlargement ) and + left axis deviation; no ST elevation Blood Pressure Blood Pressure Findings: Elevated blood pressure Blood Pressure Disposition: further management by hospitalist [facility] Narrative This is a 84-year-old male who presents emergency department complaining of abdominal pain during a period of high volume and high acuity. The patient was sent for CAT scan of the abdomen and pelvis. This was concerning for a blocked Venegas catheter. For this reason a new Venegas was placed with immediate improvement in the patient's symptoms. I am concerned that the patient has what appears to be a pyelonephritis on CAT scan as well as possible acute cholecystitis. For this reason the patient was pancultured up and started on broad-spectrum antibiotics including Zosyn as well as daptomycin. I did discuss the case with the urologist on-call who agreed with admitting the patient to the medicine service. Patient and family were in agreement with the treatment plan. In the emergency department the patient was given morphine for his pain. Repeat examination revealed improvement the patient's symptoms. Impression & Plan Urinary retention, Pyelonephritis, Cholecystitis Discharge Plan Visit Data *Final* Discharge Date/Time: 04/20/19 18:30 Chief Complaint: Unable to Void Stated Complaint: No urine output ED Provider: Gold Arreguin Discharge Problem: Urinary retention, Pyelonephritis, Cholecystitis Patient Disposition: Admitted As Inpatient Discharge Instructions Interventions: ED Discharge Assessment Last Done: 04/20/19 18:30 The scribe's documentation has been prepared under my direction and personally reviewed by me in its entirety. I confirm that the note above accurately reflects all work, treatment, procedures, and medical decision making performed by me.
[2019-04-20] MEDS: POLYETHYLENE (MIRALAX) 17 GM PACK PO SCH (21:34)
[2019-04-20] MEDS: PIPERACILLIN/TAZOBACTAM 3.375 GM in DEXTROSE 5% 100 ML IV SCH (21:34)
[2019-04-20] MEDS: ENOXAPARIN INJ 30 MG/0.3 ML SYR SQ SCH (21:38)
[2019-04-20] MEDS: guaiFENesin 600 MG TABCR PO SCH (21:40)
[2019-04-20] MEDS: DOCUSATE SODIUM 100 MG CAP PO SCH (21:41)
[2019-04-20] MEDS: PRAVASTATIN SOD 20 MG TAB PO SCH (21:41)
[2019-04-20] MEDS ORDERED: MAGNESIUM CITRATE 296 ML/BTL ONE (21:50)
[2019-04-20] MEDS: ACETAMINOPHEN 325 MG TAB PO PRN (23:21)
[2019-04-21] MEDS: PIPERACILLIN/TAZOBACTAM 3.375 GM in DEXTROSE 5% 100 ML IV SCH ×3 (05:08→22:09)
[2019-04-21] MEDS: ALBUT/IPRATROP 3MG/0.5MG NEB 3 ML VIAL INH PRN ×3 (05:21→22:18)
[2019-04-21] MEDS ORDERED: SALINE NASAL 225 SPRAYS, GENTAMICIN SULFATE 60 MG, BARCODE IDENTIFIER 0 EA PRN (05:32)
[2019-04-21] MEDS ORDERED: SODIUM CHLORIDE 0.65% NA SOLN 45 ML (OCEAN) ONE (06:17)
[2019-04-21] MEDS ORDERED: SODIUM CHLORIDE 0.65% NA SOLN 45 ML (OCEAN) PRN (06:41)
[2019-04-21 07:38] LABS: Basophils # (auto) 0.03 K/uL (0-0.2); Basophils % (auto) 0.3 %; Eosinophils % (auto) 0.9 %; Hematocrit (blood only) 35.2 % (42-52); Hemoglobin 11.5 g/dL (14.0-18.0); Immature Granulocytes # (auto) 0.18 K/uL (0.00-0.02); Immature Granulocytes % (auto) 1.7 %; Lymphocytes % (auto) 12.1 %; Mean Corpuscular Hgb Conc 32.7 g/dL (32-36); Mean Corpuscular Volume 99.7 fL (80-100); Mean Platelet Volume 9.9 fL (7.4-10.4); Monocytes # (auto) 1.13 K/uL (0.11-0.59); Monocytes % (auto) 10.5 %; Neutrophils # (auto) 8.04 K/uL (1.4-6.5); Neutrophils % (auto) 74.5 %; Platelet Count 190 K/uL (130-400); RDW Coefficient of Variation 14.8 % (11.5-14.5); RDW Standard Deviation 53.9 fL (36.4-46.3); Red Blood Count 3.53 M/uL (4.7-6.1); White Blood Count 10.78 K/uL (4.8-10.8)
[2019-04-21 08:10] LABS: Albumin Level 2.5 gm/dl (3.4-5.0); BUN Creatinine Ratio 18.2 (10-20); Bilirubin Direct 0.1 mg/dl (0-0.2); Calcium 8.5 mg/dl (8.5-10.1); Creatinine Clr Calc Pharmacy 42.3 ml/min; Est GFR (African American) 74.3; Est GFR (Non-African American) 64.1; Potassium 3.7 mmol/L (3.5-5.1)
[2019-04-21 08:15] LABS: Bilirubin,Total 0.6 mg/dl (0.2-1); Total Protein 5.5 gm/dl (6.4-8.2)
[2019-04-21] MEDS: DOCUSATE SODIUM 100 MG CAP PO SCH ×2 (08:36→20:44)
[2019-04-21] MEDS: guaiFENesin 600 MG TABCR PO SCH ×2 (08:36→20:43)
[2019-04-21] MEDS: POLYETHYLENE (MIRALAX) 17 GM PACK PO SCH (08:36)
[2019-04-21] MEDS: predniSONE 5 MG TAB PO SCH (08:37)
[2019-04-21] MEDS: MONTELUKAST SODIUM 10 MG TABLET PO SCH (08:37)
[2019-04-21] MEDS: TIOTROPIUM BROMIDE 5 PUFF/90 MCG INH INH SCH (08:38)
[2019-04-21] MEDS: METOPROLOL SUCC 50MG EXT REL TAB PO SCH (08:39)
[2019-04-21] MEDS: LISINOPRIL 20 MG TAB PO SCH (08:39)
--- NOTE | 2019-04-21 12:59 | Hospitalist Progress Note ---
Date of Service April 21, 2019 Assessment & Plan (1) Urinary retention: - Presented with urinary retention with indwelling tong following recent cystoscopy, right ureteroscopy, laser lithotripsy and right stent exchange (procedure on 04/15/19) - Tong exchanged in ER; no evidence of retention at this time. - Urology consulted, appreciate input. - Monitor daily labs along with I/Os and daily weights. (2) Pyelonephritis: - U/a positive, UC +Shanna albicans -- will follow up on urine culture. - Imaging concerning for ascending UTI/pyelonephritis in setting of recent urology procedure. - Continue Zosyn IV for empiric coverage. - No IV fluids indicated. (3) Post-operative complication: - As noted above. (4) Fecal impaction: - CT suggestive of fecal impaction. - No improvement with Colace, Dulcolax, Mag citrate - plan for JORDANA this afternoon with disimpaction. (5) Acute on chronic diastolic HF (heart failure): - Most recent TTE in January 2019 showed preserved EF. - BNP was 3,321 at admission; has SOB with exertion, increased from prior. - CXR showed developing CHF on admission. - Monitor daily weights and I/Os. - Low sodium diet; fluid restriction of 1800 cc/day. - Lasix 40 mg IV x 1 dose; holding home Lasix 40 mg PO daily. - Continue beta alan and ACEI as prescribed. (6) Chronic respiratory failure with hypoxia: - Chronically requires 2L in setting of CHF/COPD. - At baseline requirements. (7) Cholecystitis: - CT A/P showed distended gallbladder, small gallstones concerning for acute cholecystitis. - LFTs are WNL -- will monitor frequently. - Pt. is not interested in surgery at this time -- will continue to follow. - On Zosyn for empiric coverage. (8) Hypertension: - Continue beta alan and ACEI as prescribed. (9) Paroxysmal atrial fibrillation: - Continue Metoprolol as prescribed. - Holding home Eliquis due to recent procedure. (10) BPH (benign prostatic hyperplasia): - Continue to maintain indwelling tong. - Continue dutasteride -- will need to bring from home. (11) COPD (chronic obstructive pulmonary disease): - Continue home Prednisone 15 mg daily, Spiriva daily as prescribed. - Duonebs, Albuterol as needed. - No evidence of acute exacerbation at this time. (12) Chronic kidney disease, stage 3: - Renally dose all meds -- Cr currently at baseline. (13) Hyperlipidemia: - Continue statin as prescribed. (14) Physical deconditioning: - Pt reports being unsteady on his feet, has required 2 person assist. - Lives with at home, who is unable to assist 24 hours per day. - PT/OT ordered, may require rehab placement. (15) DVT prophylaxis: - Lovenox daily. Dispo: Med/surg for treatment of urinary retention, constipation and UTI. PT/OT ordered for discharge planning -- may require rehab placement. Supervising Physician Co-Signing Physician Notes Attending Attestation - Chart reviewed, care plan d/w XAVIER Rivers. I agree with the escamilla components of her documentation. Since tong exchange in ER he has had no urological issues. Urine flow has been normal and creatinine has been stable. Treating for acute/chronic diastolic CHF, constipation, and UTI. PT,OT evals to help w/ disposition. Kevin Martinez MD Subjective Pt. had a small liquid BM after enema but is likely still impacted -- will complete JORDANA this afternoon. Tong has good output, urology consulted. On 2L O2 -- chronic requirement for him. He complains of SOB with exertion -- this is a chronic issue. He has difficulty ambulating, has required 2 person assist. PT/OT pending evaluation for discharge planning -- may require rehab if patient is agreeable. Review of Systems Review of Systems: All systems reviewed & are unremarkable except as noted in HPI & below Constitutional: + fatigue and + weakness; no fever, no chills and no anorexia Respiratory: + dyspnea on exertion; no cough, no dyspnea and no wheezing Cardiovascular: no chest pain, no palpitations and no edema Gastrointestinal: + constipation; no abdominal pain, no nausea and no vomiting Genitourinary: no dysuria, no difficulty urinating and no hematuria Musculoskeletal: no back pain and no joint pain Integumentary: no non-healing lesions Neurologic: + unsteadiness and + generalized weakness Allergy / Immunological: no rash Physical Exam Physical Exam: General: Resting comfortably HEENT: NC/AT; PERRLA with EOMI; [place] conjunctiva, MMM. No erythema of posterior pharynx Neck: Supple and nontender Cardiac: RRR Lungs: on 2L via NC; crackles and wheezing noted in bilat lung bases. Abdomen: Bowel normoactive X 4; Nontender to palpation Extremities: Warm. No edema present Neuro: No focal weakness Skin: No rash Results & Data Vital Signs (Past 12 Hours) Vital Signs Temp Pulse Pulse Resp BP Pulse Ox 04/21/19 07:30 36.4 C L 89 19 118/70 90 04/21/19 05:21 90 16 93 Laboratory Results 04/21/19 04/21/19 04/20/19 Range/Units 06:50 06:50 19:13 WBC 10.78 (4.8-10.8) K/uL RBC 3.53 L (4.7-6.1) M/uL Hgb 11.5 L (14.0-18.0) g/dL Hct 35.2 L (42-52) % MCV 99.7 (80-100) fL MCH 32.6 (25-34) pg MCHC 32.7 (32-36) g/dL RDW Std Deviation 53.9 H (36.4-46.3) fL RDW Coeff of Ashley 14.8 H (11.5-14.5) % Plt Count 190 (130-400) K/uL MPV 9.9 (7.4-10.4) fL Immature Gran % (Auto) 1.7 % Neut % (Auto) 74.5 % Lymph % (Auto) 12.1 % [place] % (Auto) 10.5 % Eos % (Auto) 0.9 % Baso % (Auto) 0.3 % Immature Gran # (Auto) 0.18 H (0.00-0.02) K/uL Neut # (Auto) 8.04 H (1.4-6.5) K/uL Lymph # (Auto) 1.30 (1.2-3.4) K/uL [place] # (Auto) 1.13 H (0.11-0.59) K/uL Eos # (Auto) 0.10 (0-0.5) K/uL Baso # (Auto) 0.03 (0-0.2) K/uL Sodium 140 (136-145) mmol/L Potassium 3.7 D (3.5-5.1) mmol/L Chloride 103 (98-107) mmol/L Carbon Dioxide 33 H (21-32) mmol/L Anion Gap 4.0 (3-11) BUN 19 H (7-18) mg/dl Creatinine 1.06 (0.6-1.4) mg/dl Est Cr Clr Drug Dosing 42.3 ml/min Est GFR ( Amer) 74.3 Est GFR (Non-Af Amer) 64.1 BUN/Creatinine Ratio 18.2 (10-20) Glucose 85 (70-99) mg/dl Calcium 8.5 (8.5-10.1) mg/dl Total Bilirubin 0.6 (0.2-1) mg/dl Direct Bilirubin 0.1 (0-0.2) mg/dl AST 23 (15-37) U/L ALT 28 (12-78) U/L Alkaline Phosphatase 113 (45-117) U/L Total Creatine Kinase (39-308) U/L CK-MB (CK-2) (0.5-3.6) ng/ml CK/CKMB % Calc (0-3.0) Troponin I (0-0.045) ng/ml NT-Pro-B Natriuret Pep 3321 H (0-1800) pg/ml Total Protein 5.5 L (6.4-8.2) gm/dl Albumin 2.5 L (3.4-5.0) gm/dl Globulin (2.5-4.0) gm/dl Albumin/Globulin Ratio (0.9-2) Lipase (73-393) U/L Urine Color Urine Appearance (Clear) Urine pH (4.5-7.5) Ur Specific [place] (1.000-1.030) Urine Protein (Negative) Urine Glucose (UA) (Negative) Urine Ketones (Negative) Urine Blood (Negative) Urine Nitrite (Negative) Urine Bilirubin (Negative) Urine Urobilinogen (Negative) Ur Leukocyte Esterase (Negative) Urine WBC (Auto) (0-5) /hpf Urine RBC (Auto) (0-4) /hpf U Hyaline Cast (Auto) (0-5) /lpf U Epithel Cells (Auto) (0-5) /lpf Urine Bacteria (Auto) (Negative) Urine Crystals Calcium Oxalate Crystal (None Prsent) Urine Yeast (None Prsent) 04/20/19 04/20/19 04/20/19 Range/Units 15:40 15:40 15:00 WBC 12.29 H (4.8-10.8) K/uL RBC 3.44 L (4.7-6.1) M/uL Hgb 11.5 L (14.0-18.0) g/dL Hct 34.4 L (42-52) % MCV 100.0 (80-100) fL MCH 33.4 (25-34) pg MCHC 33.4 (32-36) g/dL RDW Std Deviation 54.7 H (36.4-46.3) fL RDW Coeff of [place] 14.8 H (11.5-14.5) % Plt Count 181 (130-400) K/uL MPV 9.4 (7.4-10.4) fL Immature Gran % (Auto) 2.0 % Neut % (Auto) 88.2 % Lymph % (Auto) 4.6 % [place] % (Auto) 4.9 % Eos % (Auto) 0.1 % Baso % (Auto) 0.2 % Immature Gran # (Auto) 0.25 H (0.00-0.02) K/uL Neut # (Auto) 10.84 H (1.4-6.5) K/uL Lymph # (Auto) 0.57 L (1.2-3.4) K/uL [place] # (Auto) 0.60 H (0.11-0.59) K/uL Eos # (Auto) 0.01 (0-0.5) K/uL Baso # (Auto) 0.02 (0-0.2) K/uL Sodium 141 (136-145) mmol/L Potassium 4.7 (3.5-5.1) mmol/L Chloride 109 H (98-107) mmol/L Carbon Dioxide 30 (21-32) mmol/L Anion Gap 2.0 L (3-11) BUN 19 H (7-18) mg/dl Creatinine 0.89 (0.6-1.4) mg/dl Est Cr Clr Drug Dosing 50.3 ml/min Est GFR ( Amer) 91.0 Est GFR (Non-Af Amer) 78.5 BUN/Creatinine Ratio 21.2 H (10-20) Glucose 105 H (70-99) mg/dl Calcium 8.1 L (8.5-10.1) mg/dl Total Bilirubin 0.4 (0.2-1) mg/dl Direct Bilirubin (0-0.2) mg/dl AST 17 (15-37) U/L ALT 26 (12-78) U/L Alkaline Phosphatase 110 (45-117) U/L Total Creatine Kinase (39-308) U/L CK-MB (CK-2) (0.5-3.6) ng/ml CK/CKMB % Calc (0-3.0) Troponin I (0-0.045) ng/ml NT-Pro-B Natriuret Pep (0-1800) pg/ml Total Protein 5.3 L (6.4-8.2) gm/dl Albumin 2.4 L (3.4-5.0) gm/dl Globulin 2.9 (2.5-4.0) gm/dl Albumin/Globulin Ratio 0.8 L (0.9-2) Lipase 43 L (73-393) U/L Urine Color [place] Urine Appearance Turbid A (Clear) Urine pH 6.0 (4.5-7.5) Ur Specific [place] 1.017 (1.000-1.030) Urine Protein 2+ H (Negative) Urine Glucose (UA) Negative (Negative) Urine Ketones Negative (Negative) Urine Blood 3+ H (Negative) Urine Nitrite Negative (Negative) Urine Bilirubin Negative (Negative) Urine Urobilinogen Negative (Negative) Ur Leukocyte Esterase 3+ H (Negative) Urine WBC (Auto) >30 H (0-5) /hpf Urine RBC (Auto) >30 H (0-4) /hpf U Hyaline Cast (Auto) 0 (0-5) /lpf U Epithel Cells (Auto) >30 H (0-5) /lpf Urine Bacteria (Auto) Negative (Negative) Urine Crystals Not Reportable Calcium Oxalate Crystal Present A (None Prsent) Urine Yeast Budding w/ Hyphae A (None Prsent) 04/20/19 Range/Units 12:40 WBC (4.8-10.8) K/uL RBC (4.7-6.1) M/uL Hgb (14.0-18.0) g/dL Hct (42-52) % MCV (80-100) fL MCH (25-34) pg MCHC (32-36) g/dL RDW Std Deviation (36.4-46.3) fL RDW Coeff of Ashley (11.5-14.5) % Plt Count (130-400) K/uL MPV (7.4-10.4) fL Immature Gran % (Auto) % Neut % (Auto) % Lymph % (Auto) % [place] % (Auto) % Eos % (Auto) % Baso % (Auto) % Immature Gran # (Auto) (0.00-0.02) K/uL Neut # (Auto) (1.4-6.5) K/uL Lymph # (Auto) (1.2-3.4) K/uL [place] # (Auto) (0.11-0.59) K/uL Eos # (Auto) (0-0.5) K/uL Baso # (Auto) (0-0.2) K/uL Sodium (136-145) mmol/L Potassium (3.5-5.1) mmol/L Chloride (98-107) mmol/L Carbon Dioxide (21-32) mmol/L Anion Gap (3-11) BUN (7-18) mg/dl Creatinine (0.6-1.4) mg/dl Est Cr Clr Drug Dosing ml/min Est GFR ( Amer) Est GFR (Non-Af Amer) BUN/Creatinine Ratio (10-20) Glucose (70-99) mg/dl Calcium (8.5-10.1) mg/dl Total Bilirubin (0.2-1) mg/dl Direct Bilirubin (0-0.2) mg/dl AST (15-37) U/L ALT (12-78) U/L Alkaline Phosphatase (45-117) U/L Total Creatine Kinase 39 (39-308) U/L CK-MB (CK-2) 3.5 (0.5-3.6) ng/ml CK/CKMB % Calc 9.0 H (0-3.0) Troponin I < 0.015 (0-0.045) ng/ml NT-Pro-B Natriuret Pep (0-1800) pg/ml Total Protein (6.4-8.2) gm/dl Albumin (3.4-5.0) gm/dl Globulin (2.5-4.0) gm/dl Albumin/Globulin Ratio (0.9-2) Lipase (73-393) U/L Urine Color Urine Appearance (Clear) Urine pH (4.5-7.5) Ur Specific [place] (1.000-1.030) Urine Protein (Negative) Urine Glucose (UA) (Negative) Urine Ketones (Negative) Urine Blood (Negative) Urine Nitrite (Negative) Urine Bilirubin (Negative) Urine Urobilinogen (Negative) Ur Leukocyte Esterase (Negative) Urine WBC (Auto) (0-5) /hpf Urine RBC (Auto) (0-4) /hpf U Hyaline Cast (Auto) (0-5) /lpf U Epithel Cells (Auto) (0-5) /lpf Urine Bacteria (Auto) (Negative) Urine Crystals Calcium Oxalate Crystal (None Prsent) Urine Yeast (None Prsent) PG Care Time/CCT Total # of Minutes Spent Total Time Spent with Patient: Total time spent is greater than 50% in c oordination of care (as documented) at patient's floor/unit and/or counseling patient: (1) BPH (benign prostatic hyperplasia) Lower urinary tract symptom presence: unspecified whether lower urinary tract symptoms present Qualified Code(s): N40.0 - Benign prostatic hyperplasia without lower urinary tract symptoms (2) COPD (chronic obstructive pulmonary disease) COPD type: COPD with acute exacerbation Qualified Code(s): J44.1 - Chronic obstructive pulmonary disease with (acute) exacerbation (3) Hypertension Hypertension type: essential hypertension Qualified Code(s): I10 - Essential (primary) hypertension
[2019-04-21] MEDS ORDERED: FUROSEMIDE 40 MG in SYRINGE 0 ML IV ONE (13:30)
[2019-04-21] MEDS: ACETAMINOPHEN 325 MG TAB PO PRN ×2 (13:33→22:09)
--- NOTE | 2019-04-21 13:33 | Urology Progress Note ---
Date of Service April 21, 2019 Assessment & Plan (1) Pyelonephritis: Continue antibiotics, recommend transition to PO when cultures available. Patient has existing outpatient follow up on Friday04/26/[address] Irizarry, will keep as scheduled. Maintain Venegas. Thanks for allowing us to participate in the inpatient care of Mr. Garcia. Please contact our service if we can be of further assistance during hospitalization. (2) Urinary retention: Subjective 84YO male POD #6 s/p right laser litho, stent exchange, with pyelonephritis. Reported to the ER yesterday with worsening abdominal pain and obstructed Venegas. Venegas was replaced and patients pain has resolved. His CT scan is reviewed and demonstrates right ureteral thickening and enhancement, mild hydro, and bladder wall thickening. Remains on empiric Zosyn and Daptomycin. Reports feeling well this morning. Offers no complaints. No fevers/chills. No nausea/vomiting. No pain. New Venegas draining and not bothersome. Review of Systems Review of Systems: All systems reviewed & are unremarkable except as noted in HPI & below Physical Exam Physical Exam: NAD. Resp effort normal +O2 via NC. No JVD. Abd soft/nontender. : bladder nondistended, Venegas patent draining clear yellow urine. A&Ox3 appropriate affect. Results & Data Vital Signs (Past 12 Hours) Vital Signs Temp Pulse Pulse Resp BP Pulse Ox 04/21/19 07:30 36.4 C L 89 19 118/70 90 04/21/19 05:21 90 16 93
[2019-04-21] MEDS ORDERED: GLYCERIN ADULT 12 EA SUPP PR STA (14:58)
[2019-04-21] MEDS: ENOXAPARIN INJ 30 MG/0.3 ML SYR SQ SCH (20:05)
[2019-04-21] MEDS: PRAVASTATIN SOD 20 MG TAB PO SCH (20:43)
[2019-04-22] MEDS ORDERED: ACETAMINOPHEN 325 MG TAB PO STA (02:58)
[2019-04-22] MEDS: PIPERACILLIN/TAZOBACTAM 3.375 GM in DEXTROSE 5% 100 ML IV SCH ×2 (05:19→13:37)
[2019-04-22 07:12] LABS: Hematocrit (blood only) 32.3 % (42-52); Hemoglobin 10.7 g/dL (14.0-18.0); Mean Corpuscular Hgb Conc 33.1 g/dL (32-36); Mean Platelet Volume 9.4 fL (7.4-10.4); Platelet Count 188 K/uL (130-400); RDW Coefficient of Variation 14.7 % (11.5-14.5); RDW Standard Deviation 53.8 fL (36.4-46.3); Red Blood Count 3.23 M/uL (4.7-6.1); White Blood Count 10.81 K/uL (4.8-10.8)
[2019-04-22 07:51] LABS: Albumin Level 2.3 gm/dl (3.4-5.0); BUN Creatinine Ratio 15.9 (10-20); Calcium 8.1 mg/dl (8.5-10.1); Creatinine Clr Calc Pharmacy 35.3 ml/min; Est GFR (Non-African American) 55.2; Potassium 4.2 mmol/L (3.5-5.1)
[2019-04-22 07:54] LABS: Albumin Globulin Ratio 0.8 (0.9-2); Bilirubin,Total 0.4 mg/dl (0.2-1); Total Protein 5.3 gm/dl (6.4-8.2)
[2019-04-22] MEDS: DOCUSATE SODIUM 100 MG CAP PO SCH (08:52)
[2019-04-22] MEDS: POLYETHYLENE (MIRALAX) 17 GM PACK PO SCH (08:52)
[2019-04-22] MEDS: guaiFENesin 600 MG TABCR PO SCH (08:52)
[2019-04-22] MEDS: predniSONE 5 MG TAB PO SCH (08:53)
[2019-04-22] MEDS: MONTELUKAST SODIUM 10 MG TABLET PO SCH (08:53)
[2019-04-22] MEDS: METOPROLOL SUCC 50MG EXT REL TAB PO SCH (08:53)
[2019-04-22] MEDS: LISINOPRIL 20 MG TAB PO SCH (08:54)
[2019-04-22] MEDS: TIOTROPIUM BROMIDE 5 PUFF/90 MCG INH INH SCH (08:54)
[2019-04-22] MEDS: ALBUT/IPRATROP 3MG/0.5MG NEB 3 ML VIAL INH PRN ×2 (08:57→15:25)
[2019-04-22] MEDS ORDERED: FUROSEMIDE 40 MG TAB PO SCH (12:45)
[2019-04-22] MEDS: ACETAMINOPHEN 325 MG TAB PO PRN (15:20)
--- NOTE | 2019-04-22 16:24 | Discharge Summary ---
Date of Service April 22, 2019 Admission HPI Per Admitting Provider Leo Garcia is an 84yo C male with multiple medical problems presenting with abdominal pain. Patient with an indwelling Tong catheter. He recently had an 11mm right renal pelvic stone. He had cystoscopy with laser lithotripsy and stent replacement performed by Dr. Logan. Patient was doing well. Emptied his Tong bag last evening at appx 22:30. This AM there was nothing in the bag and he was having abdominal discomfort. He presented to the ER and the Tong was replaced with adequate UOP. Additionally patient states he has not had a BM x 1 week. He denies fevers/chills/nausea/vomiting/abdominal pain. ER Course: Dapto. Reglan. Morphine. Zosyn Admission Exam Per Admitting Provider General: patient resting comfortably, NAD, non-toxic in appearance, AA&O x 4 Skin: warm, dry, intact, no rashes or lesions HEENT: NC/AT, PERRL, EOMI, anicteric sclera, conjunctiva without injection, external ear normal to inspection and nontender, nares patent, moist mucus membranes, dentition intact, no oropharyngeal lesions, neck supple, trachea midline, no LAD, no thyromegaly, no JVD Heart: +S1/S2, regular, no m/r/g Lungs: equal air entry bilaterally, no rales/rhonchi/wheezes Abd: +BS, soft, NT, mildly distended and full feeling, no masses/organomegaly/ascites Ext: warm, 2+ pulses in UE/LE bilaterally, no clubbing/cyanosis or edema. Tong in place with 1200mL dark yellow urine Neuro: nonfocal, patient AA&O x 4, speech intact, no facial droop, moving all extremities on command with equal strength 5/5 Principal Diagnosis Urinary Retention, Fecal Impaction, Pyelonephritis Discharge Exam General: Resting comfortably HEENT: NC/AT; PERRLA with EOMI; Dundas conjunctiva, MMM. No erythema of posterior pharynx Neck: Supple and nontender Cardiac: RRR Lungs: on 2L via NC; CTA Abdomen: Bowel normoactive X 4; Nontender to palpation Extremities: Warm. No edema present Neuro: No focal weakness Skin: No rash Discharge Data Allergies Allergy/AdvReac Type Severity Reaction Status Date / Time tamsulosin Allergy Unknown Unknown Verified 04/20/19 13:19 cilostazol AdvReac Unknown dizziness, Verified 04/20/19 13:19 palpitations diltiazem AdvReac Unknown dizziness, Verified 04/20/19 13:19 palpitations simvastatin AdvReac Unknown dizziness Verified 04/20/19 13:19 Consultations 04/20/19 16:02 ED Decision to Admit Stat 04/20/19 16:30 Consult Urology Stat 04/20/19 18:47 Consult Urology Routine 04/20/19 23:16 Consult Case Management - Discharge Planning Routine Ordered Studies 04/20/19 12:11 CT abd pelvis IV con only Stat CXR 04/20/19 Hospital Course (1) Urinary retention: Presented with urinary retention with indwelling tong following recent cystoscopy, right ureteroscopy, laser lithotripsy and right stent exchange (procedure on 04/15/19) Tong exchanged in ER; had good output from tong for remainder of admission. Urology consulted, appreciate input. Will f/u on 04/26/19. (2) Pyelonephritis: U/a positive, UC +Shanna albicans. Imaging concerning for ascending UTI/pyelonephritis in setting of recent urology procedure. Received Zosyn IV for empiric coverage; will discharge with 5 day course of Fluconazole 100 mg daily per urology. (3) Post-operative complication: As noted above. (4) Fecal impaction: CT suggestive of fecal impaction. No improvement with multiple medications/enemas/suppositories -- completed JORDANA on 04/21. Did have large BM on 04/22; will continue bowel regimen at home. (5) Acute on chronic diastolic HF (heart failure): Most recent TTE in January 2019 showed preserved EF. BNP was 3,321 at admission; has SOB with exertion, increased from prior. CXR showed developing CHF on admission. Monitored daily weights and I/Os. Low sodium diet; fluid restriction of 1800 cc/day. Lasix 40 mg IV x 2 days; continue Lasix 40 mg PO daily x 2 days then prn. Continued beta alan and ACEI as prescribed. (6) Chronic respiratory failure with hypoxia: Chronically requires 2L in setting of CHF/COPD. At baseline requirements. (7) Cholecystitis: CT A/P showed distended gallbladder, small gallstones concerning for acute cholecystitis. LFTs are WNL. Pt. is not interested in surgery at this time -- will continue to follow. Received Zosyn during admission, can continue to monitor for symptoms as outpt. (8) Hypertension: Continued beta alan and ACEI as prescribed. (9) Paroxysmal atrial fibrillation: Continued Metoprolol as prescribed. Holding home Eliquis due to recent procedure, will need to discuss with urology. (10) BPH (benign prostatic hyperplasia): Continue to maintain indwelling tong. Continued dutasteride. (11) COPD (chronic obstructive pulmonary disease): Continued home Prednisone 15 mg daily, Spiriva daily as prescribed. Duonebs, Albuterol as needed. No evidence of acute exacerbation at this time. (12) Chronic kidney disease, stage 3: Renally dose all meds -- Cr currently at baseline. (13) Hyperlipidemia: Continued statin as prescribed. (14) Physical deconditioning: Pt reports being unsteady on his feet, has required 2 person assist. Lives with at home. Was ambulating well on day of discharge -- home health and PT/OT arranged. (15) DVT prophylaxis: Lovenox daily. Stable for discharge on 04/22/19. Total Time Total Time Spent Total Time Spent (In Minutes): >30 minutes Total Time Includes: Examination of the Patient, Discharge Planning, Medication Reconciliation, Communication With Other Providers and Other Discharge Plan Discharge Items Patient Disposition: Home - Home Health Services Reason For Visit: PYELONEPHRITIS Discharge Diagnosis: Urinary Retention, Fecal Impaction, Acute on Chronic Diastolic Heart Failure Condition: Good Discharge Goals: Decrease discomfort, Improve disease control, Improve function, Increase independence, Improve nutritional status and Prevent disease Activity: As commented below Exercise/Sports: Gradually increase as tolerated Non-emergency contact: Primary Care Provider Call non-emergency contact if: you have any medication questions, your symptoms worsen, your pain is not controlled, your pain is worsening, your pain is unusual for you, your pain is concerning for you and you have a fever Follow-up/Referrals: Guerrero Morse MD [Primary Care Provider] - 04/28/19 11:00 am (Please, follow up at Dr. Morse's office with his starch treating assistant, Shima Cavazos PA-C, on FridayApril 28 at 11:00 am. *If you need to change this appointment, call their office at [phone].) Diet: Heart Healthy and Low Sodium (2gm) Fluids: 1800ml (7 cups) Diet Texture: Dental soft (bite-sized) Addtl Provider Instructions: 1. Urinary Retention * Please continue to maintain tong catheter at home. * You will need to follow up with urology as scheduled on Friday04/26/19. 2. Urinary Tract Infection * Please take Fluconazole 100 mg daily for a 5 day course. 3. Fecal Impaction * Please continue a bowel regimen at home as follows: - Colace 100 mg twice daily with Miralax daily scheduled. 4. Acute on Chronic Diastolic Heart Failure * Please continue Coreg and Lisinopril as prescribed. * Continue to weigh yourself at home (every 2-3 days); please call your family doctor if you gain more than 3-4 pounds. * Continue Lasix 40 mg daily for 2 days at home (Friday and Friday); you can take Lasix as needed for weight gain/swelling following 2 day course. * 1800 cc fluid restriction and low sodium diet. 5. COPD * Please follow up with pulmonary as scheduled in the outpatient clinic. * Continue to wear 2L via nasal cannula at all times. 6. A. Fib * Continue Metoprolol as prescribed. * Please discuss resuming home Eliquis with urology on Friday. 7. Home therapy has been resumed following discharge. 8. Please follow up with Dr. Morse in 7-10 days to discuss this hospital admission. Prescriptions: Continued benzonatate 100 mg capsule 100 mg PO QPM PRN (Reason: Cough) Qty: 30 RF: 5 furosemide 40 mg tablet 40 mg PO DAILY PRN (Reason: weight gain) Qty: 10 RF: 0 tiotropium bromide 18 mcg capsule, w/inhalation device 1 cap Inhalation DAILY Qty: 30 RF: 5 acetaminophen 325 mg tablet 650 mg PO Q6H PRN (Reason: Fever Or Pain) Qty: 60 RF: 0 cholecalciferol (vitamin D3) [Vitamin D3] 2,000 unit capsule 2,000 units PO DAILY Qty: 30 RF: 0 Dulera 200-5 mcg/actuation Hfa Aerosol Inhaler 1 puff INHALATION Q12H RF: 0 prednisone 10 mg tablet 15 mg PO DAILY RF: 0 lisinopril 20 mg tablet 20 mg PO QAM RF: 0 potassium chloride [Klor-Con M20] 20 mEq tablet,ER particles/crystals 20 meq PO DAILY PRN (Reason: Hypokalemia) RF: 0 pravastatin 20 mg tablet 20 mg PO QPM RF: 0 albuterol sulfate 90 mcg/actuation HFA aerosol inhaler 2 puff inhalation Q4H PRN (Reason: Shortness Of Breath) RF: 0 ipratropium-albuterol 0.5 mg-3 mg(2.5 mg base)/3 mL solution for nebulization 3 ml Inhalation TID PRN (Reason: Shortness Of Breath) RF: 0 metoprolol succinate 50 mg tablet extended release 24 hr 50 mg PO QAM RF: 0 montelukast 10 mg tablet 10 mg PO QAM RF: 0 dutasteride 0.5 mg capsule 0.5 mg PO QAM RF: 0 guaifenesin [Mucinex] 600 mg tablet extended release 12hr 1,200 mg PO BID RF: 0 docusate sodium [Stool Softener] 100 mg Tablet 100 mg PO BID RF: 0 Discontinued polyethylene glycol 3350 [Purelax] 17 gram/dose powder 17 g PO DAILY PRN (Reason: Constipation) Qty: 119 RF: 0 ciprofloxacin HCl [Cipro] 250 mg tablet 250 mg PO BID Qty: 14 RF: 0 No Action oxycodone 5 mg tablet 5 mg PO Q8H Qty: 30 RF: 0 Stand-Alone Forms: [facility] Discharge Orders: Discharge Order (Routine); Ordered 04/22/19 Ordered By: Anne Rivers Admission Data Admit Date/Time: 04/20/19 17:57 Attending Provider: Kevin Martinez Admit Provider: Marii Mandujano Primary Care Provider: Guerrero Morse Other Providers: aMrii Mandujano ; Derrek Esteves ; Peter Logan II ; [place],Home Care Service: Medical Other Interventions: Discharge Summary Assessment (RN) Last Done: 04/22/19 17:50 Pending Studies at Discharge: No DC Date/Time DO NOT enter until pt leaves facility: 04/22/19 18:30 Supervising Physician Co-Signing Physician Notes Attending Attestation and Discharge Note: Pt seen/examined, chart reviewed, discharge care plan d/w XAVIER Rivers. I agree with the escamilla components of her discharge documentation. Presented with obstruction of tong. Tong was exchanged in ER and since then he has had no urological issues. Urine flow has been normal and creatinine has been stable. Received treatment for acute/chronic diastolic CHF, severe constipation, and candidal UTI. Agree with diflucan for candidal UTI. PT,OT bong completed - OT felt he could return home with Home therapies; PT recommended SNF for rehab. Patient met with case management; PT recommendation for rehab reviewed with him -- refused rehab, instead wanting to return home. Discharge exam: gen - NAD, thin mouth - MMM, no thrush heart - RRR, s1, s2 lungs - mild end-exp wheezes b/l, good air movement abd - soft NT ND BS+ ext - no edema Kevin Martinez MD
== END 2019-04-22 18:30 | disposition home health service (06) | DRG 698 ==
LOC: ED 11:30 → SUATTDRO 17:57 → 3N 17:57
DX: I50.33 Acute on chronic diastolic (congestive) heart failure; Z80.8 Family history of malignant neoplasm of other organs or systems; N99.89 Other postprocedural complications and disorders of genitourinary system; I13.0 Hypertensive heart and chronic kidney disease with heart failure and stage 1 through stage 4 chronic kidney disease, or unspecified chronic kidney disease; N40.0 Benign prostatic hyperplasia without lower urinary tract symptoms; I48.0 Paroxysmal atrial fibrillation; N12 Tubulo-interstitial nephritis, not specified as acute or chronic; Z68.1 Body mass index [BMI] 19.9 or less, adult; J96.11 Chronic respiratory failure with hypoxia; N18.3 Chronic kidney disease, stage 3 (moderate); E78.5 Hyperlipidemia, unspecified; R64 Cachexia; Z99.81 Dependence on supplemental oxygen; J44.9 Chronic obstructive pulmonary disease, unspecified; K81.9 Cholecystitis, unspecified; Z80.42 Family history of malignant neoplasm of prostate; K56.41 Fecal impaction; N39.0 Urinary tract infection, site not specified

== ENCOUNTER 2019-05-31 03:35 | Inpatient (IN) ==
[2019-05-31] MEDS ORDERED: methylPREDNISolone 125 MG/2 ML VIAL IV STA (04:01)
[2019-05-31 04:20] LABS: Hemoglobin 11.3 g/dL (14.0-18.0); Mean Corpuscular Hemoglobin 32.1 pg (25-34); Mean Corpuscular Hgb Conc 32.3 g/dL (32-36); Mean Corpuscular Volume 99.4 fL (80-100); Mean Platelet Volume 9.7 fL (7.4-10.4); Platelet Count 266 K/uL (130-400); RDW Coefficient of Variation 14.7 % (11.5-14.5); RDW Standard Deviation 53.8 fL (36.4-46.3); Red Blood Count 3.52 M/uL (4.7-6.1); White Blood Count 13.44 K/uL (4.8-10.8)
[2019-05-31 04:33] LABS: Appearance Urine Turbid (Clear); Bacteria Urine Automated 4+ (Negative); Bilirubin Urine Negative (Negative); Blood Urine 3+ (Negative); Color Urine Yellow; Epithelial Cell Urine Auto >30 /lpf (0-5); Glucose Urine UA Negative (Negative); Ketones Urine Negative (Negative); Leukocyte Esterase Urine 3+ (Negative); Nitrite Urine Positive (Negative); Protein Urine 2+ (Negative); Specific Gravity Urine 1.016 (1.000-1.030); Urobilinogen Urine Negative (Negative); WBC Urine Automated >30 /hpf (0-5); pH Urine 5.5 (4.5-7.5)
[2019-05-31 04:37] LABS: Alanine Aminotransferase 16 U/L (12-78); Albumin Level 2.8 gm/dl (3.4-5.0); Aspartate Aminotransferase 12 U/L (15-37); BUN Creatinine Ratio 26.1 (10-20); Blood Urea Nitrogen 26 mg/dl (7-18); Calcium 8.6 mg/dl (8.5-10.1); Carbon Dioxide 30 mmol/L (21-32); Chloride 104 mmol/L (98-107); Creatinine Clr Calc Pharmacy 43.4 ml/min; Est GFR (African American) 80.7; Est GFR (Non-African American) 69.6; Glucose 106 mg/dl (70-99); Potassium 4.2 mmol/L (3.5-5.1); Sodium 141 mmol/L (136-145)
[2019-05-31 04:41] LABS: Albumin Globulin Ratio 0.8 (0.9-2); Alkaline Phosphatase 121 U/L (45-117); Bilirubin,Total 0.5 mg/dl (0.2-1); Globulin 3.6 gm/dl (2.5-4.0); Total Protein 6.4 gm/dl (6.4-8.2); Troponin I < 0.015 ng/ml (0-0.045)
[2019-05-31 04:48] LABS: Basophils # (auto) 0.02 K/uL (0-0.2); Basophils % (auto) 0.1 %; Eosinophils # (auto) 0.04 K/uL (0-0.5); Eosinophils % (auto) 0.3 %; Immature Granulocytes # (auto) 0.19 K/uL (0.00-0.02); Immature Granulocytes % (auto) 1.4 %; Lymphocytes # (auto) 0.75 K/uL (1.2-3.4); Lymphocytes % (auto) 5.6 %; Neutrophils # (auto) 12.04 K/uL (1.4-6.5); Neutrophils % (auto) 89.6 %; RBC Morphology Unremarkable
[2019-05-31] MEDS ORDERED: METOPROLOL TARTRATE 1 MG/ML VIAL IV STA (04:58)
[2019-05-31] MEDS ORDERED: METOPROLOL TARTRATE 1 MG/ML VIAL IV ONE (05:00)
[2019-05-31 05:21] LABS: Cast Urine Automated 0 /lpf (0-5)
[2019-05-31] MEDS ORDERED: SODIUM CHLORIDE 0.9% 1000ML 500 ML IV ONE ×2 (05:43→14:00)
[2019-05-31] MEDS ORDERED: DIGOXIN 250 MCG in SYRINGE 9 ML IV STA (05:46)
[2019-05-31] MEDS ORDERED: DIGOXIN 500 MCG/2 ML AMP IV ONE (05:56)
[2019-05-31] MEDS: ALBUMIN 25% 50 ML IV SCH ×2 (06:01→06:16)
--- NOTE | 2019-05-31 06:07 | Emergency Department Note ---
Entered by Garth Woody acting as a scribe for History of Present Illness General Chief complaint: Respiratory Problems Stated complaint: BREATHING DIFFICULTY Time Seen by Provider: 05/31/19 03:44 Source: patient and RN notes reviewed History of Present Illness Onset (ago): hour(s) (few) Location: chest Pain Consistency: + constant Quality: + other (SOB) Relieved By: + medication (duoneb) Associated symptoms: + denies other symptoms (abdominal pain, trouble eating, trouble drinking, and trouble urinating or defecating) and + other (nervousness); no chest pain The patient is an 84 y/o male who presents to the ED w/ CC of constant shortness of breath beginning a few hours ago. Nursing staff states the patient had an O2Sat of 82 on their arrival. They report EMS gave the patient a Duoneb and placed him on CPAP. The patient states his symptoms started while he was lying in bed. He reports he has felt alright last night, but he could not sleep the past two nights because he is nervous. The patient notes he does not know what is nervous about. He states he wears 2L of oxygen at home, and his saturation is normally around 94. The patient reports he has a history of COPD from smoking, and he does not smoke anymore. He notes he has inhalers that he uses at home. The patient states he feels better after receiving the Duoneb from EMS. He denies chest pain, abdominal pain, trouble eating, trouble drinking, and trouble urinating or defecating. The patient reports he has had a catheter for a few months secondary to a kidney stone. Home Medications Home Medications Medication Instructions Recorded Confirmed Type benzonatate 100 mg capsule 100 mg PO QPM PRN #30 cap 03/11/19 05/31/19 Rx tiotropium bromide 18 mcg capsule 1 cap INHALATION DAILY #30 puffs 03/11/19 05/31/19 Rx with inhalation device cholecalciferol (vitamin D3) 2,000 2,000 units PO DAILY #30 cap 03/15/19 05/31/19 Rx unit capsule albuterol sulfate 2 puff INHALATION Q4H PRN 03/23/19 05/31/19 History docusate sodium [Stool Softener] 100 mg PO BID PRN 03/23/19 05/31/19 History dutasteride 0.5 mg PO QAM 03/23/19 05/31/19 History guaifenesin [Mucinex] 1,200 mg PO BID 03/23/19 05/31/19 History ipratropium-albuterol 3 ml INHALATION TID 03/23/19 05/31/19 History metoprolol succinate 50 mg PO QAM 03/23/19 05/31/19 History pravastatin 20 mg PO QPM 03/23/19 05/31/19 History Dulera 1 puff INHALATION Q12H 04/13/19 05/31/19 History levalbuterol HFA 45 mcg/actuation 1 puffs INH Q6H PRN 05/08/19 05/31/19 History aerosol inhaler prednisone 10 mg tablet 10 mg PO DAILY #30 tab 05/12/19 05/31/19 Rx acetaminophen 650 mg PO Q6H PRN 05/31/19 05/31/19 History apixaban [Eliquis] 2.5 mg PO BID 05/31/19 05/31/19 History fluticasone propionate 2 sprays INTNAS DAILY 05/31/19 05/31/19 History furosemide 20 mg PO Q2D 05/31/19 05/31/19 History lisinopril 20 mg PO DAILY 05/31/19 05/31/19 History montelukast 10 mg PO QAM 05/31/19 05/31/19 History oxycodone 5 mg PO HS 05/31/19 05/31/19 History potassium chloride [Klor-Con M20] 20 meq PO Q2D 05/31/19 05/31/19 History Allergies Allergy/AdvReac Type Severity Reaction Status Date / Time tamsulosin Allergy Unknown Unknown Verified 05/31/19 04:19 cilostazol AdvReac Unknown dizziness, Verified 05/31/19 04:19 palpitations diltiazem AdvReac Unknown dizziness, Verified 05/31/19 04:19 palpitations simvastatin AdvReac Unknown dizziness Verified 05/31/19 04:19 Past Med/Surg History Medical History Paroxysmal atrial fibrillation Dx 07/28/18 during admission for COPD exacerbation. Initially in RVR, but spontaneously converted; started on Metoprolol and Eliquis. Eliquis discontinued during admission 03/08/19 due to hematuria. 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 Hyperlipidemia Ankle edema, bilateral Pt admits to eating salty snacks lately. Advised to avoid salt. Asthma Cachexia Enlarged prostate Hematuria 2/2 renal calculi Hypertension Indwelling Venegas catheter present On home oxygen therapy 2lpm via n/c Surgical History History of appendectomy History of colonoscopy History of cystoscopy WITH STENT, during admission 03/2019 History of lithotripsy History of tonsillectomy Hx of transurethral resection of prostate Family History Mother Cancer thyroid Brother Myocardial infarction Prostate cancer Father No problems noted. Other Family history non-contributory No significant family history Social History Preferred Language: Ethiopian Communication Ability: Effective Residential Electrician Required: No Beliefs That Will Affect Care: None marital status: Current Living Situation: Spouse Current Living Situation Comment: currently has home health services Feels Safe at Home: Yes Smoking Status: Former smoker Tobacco Type: cigarettes ; Cigarettes Per Day: 20 ; Second Hand Exposure: No ; Hx Alcohol Use: No Hx Substance Use: No Review of Systems See HPI for pertinent positives & negatives. and A total of 10 systems reviewed and were otherwise negative Physical Exam Vital Signs Vital Signs - 24 hr 05/31/19 03:45 05/31/19 04:09 05/31/19 04:18 Temperature 37 C Temperature Source Oral Sepsis Recent Fever Within 48 Hours No Sepsis New/Unexplained Change in Mental Status No Sepsis Action Taken by Nursing No Action Required Pulse Rate 144 H Pulse Rate [Right Finger] 146 H Pulse Rhythm Irregular Pulse Rhythm [Right Finger] Irregular Pulse Strength Normal Pulse Strength [Right Finger] Normal Respiratory Rate 30 H 16 Respiratory Effort / Characteristics Non-Labored Non-Labored Respiratory Depth Normal Normal Respiratory Pattern Regular Regular Blood Pressure 114/86 Blood Pressure [Right Arm] 114/86 Blood Pressure Mean 95 Blood Pressure Mean [Right Arm] 95 Blood Pressure Position Lying Blood Pressure Position [Right Arm] Lying Pulse Oximetry 96 94 96 Oxygen Delivery Method Room Air Nasal Cannula Nasal Cannula Oxygen Flow Rate 3 6 4 05/31/19 04:28 05/31/19 05:11 05/31/19 05:20 Temperature Temperature Source Sepsis Recent Fever Within 48 Hours Sepsis New/Unexplained Change in Mental Status Sepsis Action Taken by Nursing Pulse Rate Pulse Rate [Right Finger] 143 H 130 H Pulse Rhythm Pulse Rhythm [Right Finger] Irregular Irregular Pulse Strength Pulse Strength [Right Finger] Normal Normal Respiratory Rate 18 20 Respiratory Effort / Characteristics Non-Labored Non-Labored Respiratory Depth Normal Normal Respiratory Pattern Regular Regular Blood Pressure Blood Pressure [Right Arm] 95/46 L 115/64 Blood Pressure Mean Blood Pressure Mean [Right Arm] 62 81 Blood Pressure Position Blood Pressure Position [Right Arm] Lying Lying Pulse Oximetry 98 99 Oxygen Delivery Method Room Air Nasal Cannula Nasal Cannula Oxygen Flow Rate 4 3 3 General: The patient is slightly tachypnea and anxious. HEENT: Head - normocephalic and atraumatic Pupils are equal, round, and reactive to light. Extraocular eye muscles are intact, and sclera are anicteric. Nose - moist nasal mucosa without discharge. Mouth - moist buccal mucosa. Oropharynx is nonerythematous and there is no tonsillar exudate or edema noted. Neck: Supple; no cervical lymphadenopathy Heart: Tachycardic rate and regular rhythm. There is a normal S1 and S2 with no murmurs, clicks, or gallops appreciated. Lungs: Clear but diminished breath sounds Abdomen: Soft, completely nontender, nondistended, with good bowel sounds. There are no palpable pulsatile masses or hepatosplenomegaly. There is no guarding, rigidity, or rebound noted. Extremities: No evidence of cyanosis, clubbing, or edema. There are easily palpable peripheral pulses. Skin: warm and dry with good turgor and a few areas of skin break down. Course 0349: The patient was evaluated in room A12B. A complete history and physical examination were performed. Nursing notes and previous electronic medical records were reviewed. IV lock was established and labs were drawn as above. A twelve-lead EKG was obtained. A portable chest x-ray was obtained. 0401: Ordered Solu-Medrol 125mg IV 0409: I discussed the patient's case with his daughter. She is concerned that he may also have a UTI because there is some sediment in the catheter. Urinalysis was ordered. 0452: The patient has a heart rate now in the 160s upon reevaluation. It appears that he is in A. fib with RVR. I discussed his current test results with him and his daughter at bedside. 0458: Ordered Lopressor 5mg IV 0505: The patient was unable to receive the dose of Lopressor because his blood pressure dropped to 100 systolic. 0537: Upon reevaluation, I discussed findings and results with the patient and his daughter. They verbalized agreement of the treatment plan. I spoke with Dr. Arndt of the [facility] Hospitalist Service at the patient's bedside. The patient will be evaluated for further management and care. 0540: The patient's blood pressure has come back up again nicely. Heart rate is now in the 120s and the patient remains in atrial fibrillation. I did review multiple previous urinary cultures as it appears the patient has urinary tract infection again here today. He has multiple drug-resistant bacteria. Dr. Saad munoz will decide which antibiotic to use to treat his urinary tract infection. Administered Medications Albumin Human (Albumin 25%) 50 mls @ 50 mls/hr IV Q1H [facility] Stop: 05/31/19 07:44 Last Admin: 05/31/19 06:01 Dose: 50 mls/hr Documented by: [id number] Discontinued Medications Digoxin (Lanoxin) Confirm Administered Dose 250 mcg IV .STK-MED ONE Stop: 05/31/19 05:57 Last Admin: 05/31/19 06:01 Dose: Not Given Documented by: [id number] Digoxin 250 mcg/ Syringe 10 mls @ 2 mls/min IV NOW STA Stop: 05/31/19 05:50 Last Admin: 05/31/19 06:00 Dose: 2 mls/min Documented by: [id number] Methylprednisolone (Solumedrol) 125 mg IV NOW STA Stop: 05/31/19 04:02 Last Admin: 05/31/19 04:04 Dose: 125 mg Documented by: [id number] Metoprolol Tartrate (Lopressor) 5 mg IV NOW STA Stop: 05/31/19 04:59 Last Admin: 05/31/19 05:19 Dose: Not Given Documented by: [id number] Metoprolol Tartrate (Lopressor) Confirm Administered Dose 5 mg IV .STK-MED ONE Stop: 05/31/19 05:01 Last Admin: 05/31/19 05:19 Dose: Not Given Documented by: [id number] Medical Decision Making Differential Diagnosis Differential diagnosis includes: COPD exacerbation, CHF, pneumonia, bronchitis. Medical Records Attestation: I reviewed the patient's medical records. Home Medications Current Medication List: was personally reviewed by me Laboratory Data Attestation: I reviewed the patient's lab results. Result diagrams: 05/31/19 04:08 05/31/19 04:08 Lab Results 05/31/19 05/31/19 05/31/19 Range/Units 03:45 04:08 04:08 WBC 13.44 H (4.8-10.8) K/uL RBC 3.52 L (4.7-6.1) M/uL Hgb 11.3 L (14.0-18.0) g/dL Hct 35.0 L (42-52) % MCV 99.4 (80-100) fL MCH 32.1 (25-34) pg MCHC 32.3 (32-36) g/dL RDW Std Deviation 53.8 H (36.4-46.3) fL RDW Coeff of Ashley 14.7 H (11.5-14.5) % Plt Count 266 (130-400) K/uL MPV 9.7 (7.4-10.4) fL Immature Gran % (Auto) 1.4 % Neut % (Auto) 89.6 % Lymph % (Auto) 5.6 % Barton % (Auto) 3.0 % Eos % (Auto) 0.3 % Baso % (Auto) 0.1 % Immature Gran # (Auto) 0.19 H (0.00-0.02) K/uL Neut # (Auto) 12.04 H (1.4-6.5) K/uL Lymph # (Auto) 0.75 L (1.2-3.4) K/uL Barton # (Auto) 0.40 (0.11-0.59) K/uL Eos # (Auto) 0.04 (0-0.5) K/uL Baso # (Auto) 0.02 (0-0.2) K/uL RBC Morphology Unremarkable Sodium 141 (136-145) mmol/L Potassium 4.2 (3.5-5.1) mmol/L Chloride 104 (98-107) mmol/L Carbon Dioxide 30 (21-32) mmol/L Anion Gap 7.0 (3-11) BUN 26 H (7-18) mg/dl Creatinine 0.99 (0.6-1.4) mg/dl Est Cr Clr Drug Dosing 43.4 ml/min Est GFR ( Amer) 80.7 Est GFR (Non-Af Amer) 69.6 BUN/Creatinine Ratio 26.1 H (10-20) Glucose 106 H (70-99) mg/dl Calcium 8.6 (8.5-10.1) mg/dl Total Bilirubin 0.5 (0.2-1) mg/dl AST 12 L (15-37) U/L ALT 16 (12-78) U/L Alkaline Phosphatase 121 H (45-117) U/L Troponin I < 0.015 (0-0.045) ng/ml Total Protein 6.4 (6.4-8.2) gm/dl Albumin 2.8 L (3.4-5.0) gm/dl Globulin 3.6 (2.5-4.0) gm/dl Albumin/Globulin Ratio 0.8 L (0.9-2) Urine Color Yellow Urine Appearance Turbid A (Clear) Urine pH 5.5 (4.5-7.5) Ur Specific [place] 1.016 (1.000-1.030) Urine Protein 2+ H (Negative) Urine Glucose (UA) Negative (Negative) Urine Ketones Negative (Negative) Urine Blood 3+ H (Negative) Urine Nitrite Positive A (Negative) Urine Bilirubin Negative (Negative) Urine Urobilinogen Negative (Negative) Ur Leukocyte Esterase 3+ H (Negative) Urine WBC (Auto) >30 H (0-5) /hpf Urine RBC (Auto) 5-10 H (0-4) /hpf U Hyaline Cast (Auto) 0 (0-5) /lpf U Epithel Cells (Auto) >30 H (0-5) /lpf Urine Bacteria (Auto) 4+ H (Negative) Urine Yeast Present A (None Prsent) Imaging Data Attestation: I personally reviewed and interpreted this imaging study as follows: My Impression: XR chest 1v portable: Mild CHF. No pulmonary consolidation or pleural effusion. ECG Data Attestation: I personally reviewed and interpreted this ECG as follows: Indication: SOB/dyspnea Rate (beats per minute): 141 Rhythm: sinus tachycardia Findings: no PAC, no PVC, no ST depression, no ST elevation, no acute ischemic change and no ectopy Additional Comments: REPEAT EKG IN THE SAME VISIT: Atrial fibriliation with RVR. Rate of 147. No ST elevation or depression. No PVCs or PACs. Blood Pressure Blood Pressure Findings: Normal blood pressure Blood Pressure Disposition: did not require urgent referral MDM Narrative The patient is an 84 y/o male who presents to the ED w/ CC of constant shortness of breath beginning a few hours ago. The patient has a history of COPD. His PCP was recently decreasing his dose of prednisone. Patient states that he has not felt well over the past 48 hours and has been unable to sleep. His shortness of breath increased tonight and EMS was called. He was found to be hypoxic and was given DuoNeb treatments and placed on CPAP. Upon arrival here in the emergency department, the patient was feeling somewhat better. He was switched from CPAP to a nasal cannula which was able to support his oxygen s aturation. The patient initially presented in a sinus tachycardia but then flipped to A. fib with RVR. From a respiratory standpoint, the patient seems to feel better. His daughter was concerned about a urinary tract infection as he has an indwelling Venegas catheter. The urine does appear to be infected and will require treatment. The patient's heart rate seems to be coming down nicely on its own. We did discuss the possibility of cardioversion if his blood pressure continued to fall. This was not necessary as his blood pressure normalized. I discussed the case with the [facility] Hospitalist at the bedside. Impression & Plan COPD exacerbation, UTI (urinary tract infection), Atrial fibrillation with RVR Discharge Plan Visit Data Chief Complaint: Respiratory Problems Stated Complaint: BREATHING DIFFICULTY ED Provider: Soha Olivia Discharge Problem: COPD exacerbation, UTI (urinary tract infection), Atrial fibrillation with RVR Patient Disposition: Being Evaluated by Hospitalist Forms Stand Alone Forms: My [facility] Prescriptions Prescriptions: No Action benzonatate 100 mg capsule 100 mg PO QPM PRN (Reason: Cough) Qty: 30 RF: 5 tiotropium bromide 18 mcg capsule, w/inhalation device 1 cap Inhalation DAILY Qty: 30 RF: 5 cholecalciferol (vitamin D3) [Vitamin D3] 2,000 unit capsule 2,000 units PO DAILY Qty: 30 RF: 0 prednisone 10 mg tablet 10 mg PO DAILY Qty: 30 RF: 5 levalbuterol tartrate 45 mcg/actuation HFA aerosol inhaler 1 puffs INH Q6H PRN (Reason: shortness of breath) RF: 0 Dulera 200-5 mcg/actuation Hfa Aerosol Inhaler 1 puff INHALATION Q12H RF: 0 furosemide 40 mg tablet 20 mg PO Q2D RF: 0 potassium chloride [Klor-Con M20] 20 mEq tablet,ER particles/crystals 20 meq PO Q2D RF: 0 montelukast 10 mg tablet 10 mg PO QAM RF: 0 Eliquis 2.5 mg tablet 2.5 mg PO BID RF: 0 acetaminophen 325 mg tablet 650 mg PO Q6H PRN (Reason: Fever Or Pain) RF: 0 lisinopril 20 mg tablet 20 mg PO DAILY RF: 0 fluticasone propionate 50 mcg/actuation spray,suspension 2 sprays INTNAS DAILY RF: 0 oxycodone 5 mg tablet 5 mg PO HS RF: 0 pravastatin 20 mg tablet 20 mg PO QPM RF: 0 albuterol sulfate 90 mcg/actuation HFA aerosol inhaler 2 puff inhalation Q4H PRN (Reason: Shortness Of Breath Or Wheezing) RF: 0 ipratropium-albuterol 0.5 mg-3 mg(2.5 mg base)/3 mL solution for nebulization 3 ml Inhalation TID RF: 0 metoprolol succinate 50 mg tablet extended release 24 hr 50 mg PO QAM RF: 0 dutasteride 0.5 mg capsule 0.5 mg PO QAM RF: 0 guaifenesin [Mucinex] 600 mg tablet extended release 12hr 1,200 mg PO BID RF: 0 docusate sodium [Stool Softener] 100 mg Tablet 100 mg PO BID PRN (Reason: Constipation) RF: 0 Referrals Referrals: Guerrero Morse MD [Primary Care Provider] - Discharge Problem: UTI (urinary tract infection) Qualifiers: Urinary tract infection type: site unspecified Hematuria presence: with hematuria Qualified Code(s): N39.0 - Urinary tract infection, site not specified The scribe's documentation has been prepared under my direction and personally reviewed by me in its entirety. I confirm that the note above accurately reflects all work, treatment, procedures, and medical decision making performed by me.
--- NOTE | 2019-05-31 06:08 | History & Physical Report ---
Date of Service May 31, 2019 Assessment & Plan (1) Atrial fibrillation with RVR: Atrial fibrillation with RVR/systolic blood pressure in the upper 90s- The patient will be admitted to telemetry for serial cardiac enzymes, serial EKG's, cardiac rhythm monitoring. Echocardiogram in 01/22 showed EF 55%. Patient looks intravascularly dry. Patient was given Lopressor 5 mg IV x2 by the ED with minimal effect. Give 500 cc normal saline bolus and Albumin 25 g IV x2 to help improve blood pressure. Digoxin 0.25 mg IV x1 now. Hold lisinopril. Continue apixaban 2.5 mg twice daily. Metoprolol succinate 50 mg p.o. every morning will be held for low blood pressures. Patient has sensitivity to Cardizem which will therefore not be used for rate control. Lopressor 5 mg IV every 4 hours as needed heart rate greater than 110. Consult cardiology. Present on Admission?: Yes (2) COPD exacerbation: Duonebs 4 times daily and every 2 hours as needed. Solu-Medrol 40 mg IV every 8 hours. Humidify nasal cannulla. Target pulse ox 92-94% Present on Admission?: Yes (3) UTI (urinary tract infection): Most recent infections have been with Morganella and Enterococcus faecalis, both of which have been sensitive to levofloxacin. Place levofloxacin 500 mg IV every 24 hours, also cover possible lung organisms. Present on Admission?: Yes (4) Chronic indwelling Venegas catheter: Continue Present on Admission?: Yes History of Present Illness Chief Complaint: The patient was brought to the emergency department with complaints of difficulty breathing, decreased oral intake for liquids and solids, difficulty with urinating and defecating. Primary Care Provider: Mateo Morse MD The patient is a 84-year-old male with a past medical history including atrial fibrillation, hypertension, CHF, COPD, hyperlipidemia and BPH, who presents to the emergency department with complaints of shortness of breath, difficulty with urination suggestive of his previous UTIs, and difficulty with oral intake. He has not had any recent travels or sick exposures. When seen by EMS, he was given a DuoNeb and was placed on CPAP and brought to the emergency department for assessment. Presently in the emergency room, he is on 5 L nasal cannula oxygen. He also does have a chronic indwelling Venegas catheter, which is draining thick dark-colored urine. Allergies Allergy/AdvReac Type Severity Reaction Status Date / Time tamsulosin Allergy Unknown Unknown Verified 05/31/19 04:19 cilostazol AdvReac Unknown dizziness, Verified 05/31/19 04:19 palpitations diltiazem AdvReac Unknown dizziness, Verified 05/31/19 04:19 palpitations simvastatin AdvReac Unknown dizziness Verified 05/31/19 04:19 Home Medications Home Medications Medication Instructions Recorded Confirmed Type benzonatate 100 mg capsule 100 mg PO QPM PRN #30 cap 03/11/19 05/31/19 Rx tiotropium bromide 18 mcg capsule 1 cap INHALATION DAILY #30 puffs 03/11/19 05/31/19 Rx with inhalation device cholecalciferol (vitamin D3) 2,000 2,000 units PO DAILY #30 cap 03/15/19 05/31/19 Rx unit capsule albuterol sulfate 2 puff INHALATION Q4H PRN 03/23/19 05/31/19 History docusate sodium [Stool Softener] 100 mg PO BID PRN 03/23/19 05/31/19 History dutasteride 0.5 mg PO QAM 03/23/19 05/31/19 History guaifenesin [Mucinex] 1,200 mg PO BID 03/23/19 05/31/19 History ipratropium-albuterol 3 ml INHALATION TID 03/23/19 05/31/19 History metoprolol succinate 50 mg PO QAM 03/23/19 05/31/19 History pravastatin 20 mg PO QPM 03/23/19 05/31/19 History Dulera 1 puff INHALATION Q12H 04/13/19 05/31/19 History levalbuterol HFA 45 mcg/actuation 1 puffs INH Q6H PRN 05/08/19 05/31/19 History aerosol inhaler prednisone 10 mg tablet 10 mg PO DAILY #30 tab 05/12/19 05/31/19 Rx acetaminophen 650 mg PO Q6H PRN 05/31/19 05/31/19 History apixaban [Eliquis] 2.5 mg PO BID 05/31/19 05/31/19 History fluticasone propionate 2 sprays INTNAS DAILY 05/31/19 05/31/19 History furosemide 20 mg PO Q2D 05/31/19 05/31/19 History lisinopril 20 mg PO DAILY 05/31/19 05/31/19 History montelukast 10 mg PO QAM 05/31/19 05/31/19 History oxycodone 5 mg PO HS 05/31/19 05/31/19 History potassium chloride [Klor-Con M20] 20 meq PO Q2D 05/31/19 05/31/19 History Past Med/Surg History Medical History Paroxysmal atrial fibrillation Dx 07/28/18 during admission for COPD exacerbation. Initially in RVR, but spontaneously converted; started on Metoprolol and Eliquis. Eliquis discontinued during admission 03/08/19 due to hematuria. Weight loss (Acute) Vitamin D deficiency (Acute) Urinary retention (Acute) Sinus tachycardia (Acute) Pulmonary nodule (Acute) Pulmonary emphysema (Acute) PAD (peripheral artery disease) (Acute) Leukocytosis (Acute) Insomnia (Acute) Carotid artery plaque (Acute) <50% stenosis of internal carotids B/L by 2017 doppler Eda disease (Acute) Benign prostatic hyperplasia with urinary obstruction (Acute) Anemia (Acute) Actinic keratosis (Acute) Nephrolithiasis (Acute) UTI (urinary tract infection) (Acute) Chronic kidney disease, stage 3 Chronic diastolic heart failure 2+ ankle edema on exam at PAT Hyperlipidemia Ankle edema, bilateral Pt admits to eating salty snacks lately. Advised to avoid salt. Asthma Cachexia Enlarged prostate Hematuria 2/2 renal calculi Hypertension Indwelling Venegas catheter present On home oxygen therapy 2lpm via n/c Surgical History History of appendectomy History of colonoscopy History of cystoscopy WITH STENT, during admission 03/2019 History of lithotripsy History of tonsillectomy Hx of transurethral resection of prostate Family History Mother Cancer thyroid Brother Myocardial infarction Prostate cancer Father No problems noted. 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 Beliefs That Will Affect Care: None marital status: Current Living Situation: Spouse Current Living Situation Comment: currently has home health services Feels Safe at Home: Yes Smoking Status: Former smoker Tobacco Type: cigarettes ; Cigarettes Per Day: 20 ; Second Hand Exposure: No ; Hx Alcohol Use: No Hx Substance Use: No Review of Systems Review of Systems: The patient denies chest pain, palpitations, lower extremity swelling, sore throat, fevers, chills, sweats, nausea, vomiting, diarrhea , constipation, abdominal pain, pelvic pain, blood in urine or stool, dysuria, lightheadedness, loss of consciousness, rash, abnormal bruising or bleeding, focal weakness, numbness or tingling in arms or legs, generalized arthralgias or myalgias, back or neck pain, or night sweats. The review of systems is otherwise negative other than for that already noted above, and at least 10 systems have been reviewed. Physical Exam Physical Exam: The patient is awake, alert and oriented 3, appears thin, normocephalic and atraumatic, sitting upright in bed and in no acute distress. HEENT--PERRL, EOMI, mucous membranes and oropharynx dry. Neck--supple. No JVD. No bruits. Thyroid normal, trachea midline, no adenopathy. Heart--tachycardic and irregular. No murmurs, rubs or gallops. Lungs--few coarse breath sounds bilaterally, overall diminished. Abdomen--normal bowel sounds and soft. Nontender. Nondistended. Extremities--no cyanosis or clubbing. No edema. Dermatologic--normal skin turgor, normal color, no abnormal lymph nodes, no rash. Neurologic--cranial nerves II through XII grossly intact. Rheumatologic--normal range of motion. Psychiatric--normal affect. Results & Data Vital Signs (Past 12 Hours) Vital Signs Temp Pulse Pulse Resp BP BP Pulse Ox 05/31/19 05:20 130 H 20 115/64 99 05/31/19 05:11 143 H 18 95/46 L 98 05/31/19 04:18 146 H 16 114/86 96 05/31/19 04:09 94 05/31/19 03:45 98.6 F 144 H 30 H 114/86 96 Laboratory Results Laboratory Results WBC 13.44 K/uL (4.8-10.8) H 05/31/19 04:08 RBC 3.52 M/uL (4.7-6.1) L 05/31/19 04:08 Hgb 11.3 g/dL (14.0-18.0) L 05/31/19 04:08 Hct 35.0 % (42-52) L 05/31/19 04:08 MCV 99.4 fL (80-100) 05/31/19 04:08 MCH 32.1 pg (25-34) 05/31/19 04:08 MCHC 32.3 g/dL (32-36) 05/31/19 04:08 RDW Std Deviation 53.8 fL (36.4-46.3) H 05/31/19 04:08 RDW Coeff of [place] 14.7 % (11.5-14.5) H 05/31/19 04:08 Plt Count 266 K/uL (130-400) 05/31/19 04:08 MPV 9.7 fL (7.4-10.4) 05/31/19 04:08 Immature Gran % (Auto) 1.4 % 05/31/19 04:08 Neut % (Auto) 89.6 % 05/31/19 04:08 Lymph % (Auto) 5.6 % 05/31/19 04:08 [place] % (Auto) 3.0 % 05/31/19 04:08 Eos % (Auto) 0.3 % 05/31/19 04:08 Baso % (Auto) 0.1 % 05/31/19 04:08 Immature Gran # (Auto) 0.19 K/uL (0.00-0.02) H 05/31/19 04:08 Neut # (Auto) 12.04 K/uL (1.4-6.5) H 05/31/19 04:08 Lymph # (Auto) 0.75 K/uL (1.2-3.4) L 05/31/19 04:08 [place] # (Auto) 0.40 K/uL (0.11-0.59) 05/31/19 04:08 Eos # (Auto) 0.04 K/uL (0-0.5) 05/31/19 04:08 Baso # (Auto) 0.02 K/uL (0-0.2) 05/31/19 04:08 RBC Morphology Unremarkable 05/31/19 04:08 Sodium 141 mmol/L (136-145) 05/31/19 04:08 Potassium 4.2 mmol/L (3.5-5.1) 05/31/19 04:08 Chloride 104 mmol/L (98-107) 05/31/19 04:08 Carbon Dioxide 30 mmol/L (21-32) 05/31/19 04:08 Anion Gap 7.0 (3-11) 05/31/19 04:08 BUN 26 mg/dl (7-18) H 05/31/19 04:08 Creatinine 0.99 mg/dl (0.6-1.4) 05/31/19 04:08 Est Cr Clr Drug Dosing 43.4 ml/min 05/31/19 04:08 Est GFR ( Amer) 80.7 05/31/19 04:08 Est GFR (Non-Af Amer) 69.6 05/31/19 04:08 BUN/Creatinine Ratio 26.1 (10-20) H 05/31/19 04:08 Glucose 106 mg/dl (70-99) H 05/31/19 04:08 Calcium 8.6 mg/dl (8.5-10.1) 05/31/19 04:08 Magnesium 1.7 mg/dl (1.8-2.4) L 05/31/19 04:08 Total Bilirubin 0.5 mg/dl (0.2-1) 05/31/19 04:08 AST 12 U/L (15-37) L 05/31/19 04:08 ALT 16 U/L (12-78) 05/31/19 04:08 Alkaline Phosphatase 121 U/L (45-117) H 05/31/19 04:08 Troponin I < 0.015 ng/ml (0-0.045) 05/31/19 04:08 Total Protein 6.4 gm/dl (6.4-8.2) 05/31/19 04:08 Albumin 2.8 gm/dl (3.4-5.0) L 05/31/19 04:08 Globulin 3.6 gm/dl (2.5-4.0) 05/31/19 04:08 Albumin/Globulin Ratio 0.8 (0.9-2) L 05/31/19 04:08 Urine Color Yellow 05/31/19 03:45 Urine Appearance Turbid (Clear) A 05/31/19 03:45 Urine pH 5.5 (4.5-7.5) 05/31/19 03:45 Ur Specific [place] 1.016 (1.000-1.030) 05/31/19 03:45 Urine Protein 2+ (Negative) H 05/31/19 03:45 Urine Glucose (UA) Negative (Negative) 05/31/19 03:45 Urine Ketones Negative (Negative) 05/31/19 03:45 Urine Blood 3+ (Negative) H 05/31/19 03:45 Urine Nitrite Positive (Negative) A 05/31/19 03:45 Urine Bilirubin Negative (Negative) 05/31/19 03:45 Urine Urobilinogen Negative (Negative) 05/31/19 03:45 Ur Leukocyte Esterase 3+ (Negative) H 05/31/19 03:45 Urine WBC (Auto) >30 /hpf (0-5) H 05/31/19 03:45 Urine RBC (Auto) 5-10 /hpf (0-4) H 05/31/19 03:45 U Hyaline Cast (Auto) 0 /lpf (0-5) 05/31/19 03:45 U Epithel Cells (Auto) >30 /lpf (0-5) H 05/31/19 03:45 Urine Bacteria (Auto) 4+ (Negative) H 05/31/19 03:45 Urine Yeast Present (None Prsent) A 05/31/19 03:45 Diagnostic Findings [place], [place] [phone] XRay Report Patient: BHARATH ANAND Date: 05/31/19 MR#: [id number]: [address] Acct ID:[id number]: [address] [facility] Zip[facility] [place] [address] Age: 84Location: ED Sex: M Room/Bed: Att Phy: Diagnosis: BREATHING DIFFICULTY Cora Phy: Mateo Morse, MDService Date: 05/31/19 Fam Phy: Interpreting Phy: Hudson Rendon Admit Phy: Ordering Phy: Soha Olivia D.O. cc: ~ XR chest 1V portable HISTORY: 84 years-old Male Dyspnea acute shortness of breath COMPARISON: Chest radiograph 04/20/2019, and 03/25/[address] 04/14/2019 TECHNIQUE: Portable AP view of the chest FINDINGS: Cardiac silhouette is enlarged, unchanged. Pulmonary vascular congestion. Severe emphysema with chronic fibrosis. Right infrahilar and bibasilar opacities are noted. No pneumothorax or large pleural effusion. Degenerative changes of the shoulders and spine. IMPRESSION: 1. Cardiomegaly with pulmonary vascular congestion. 2. Severe emphysema with chronic fibrotic changes. 3. Bibasilar opacities suggest atelectasis or pneumonitis. The above report was generated using voice recognition software. It may contain grammatical, syntax or spelling errors. Electronically signed by: Lul Rendon M.D. 05/31/2019 6:22 AM Dictated: 05/31/19618 Transcribed: 05/31/19618 Code Status & VTE Plan VTE Prophylaxis Plan VTE Prophylaxis will be ordered: Yes PG Care Time/CCT Total # of Minutes Spent Total Time Spent with Patient: Total time spent is greater than 50% in coordination of care (as documented) at patient's floor/unit and/or counseling patient: (1) UTI (urinary tract infection) Hematuria presence: with hematuria Urinary tract infection type: site unspecified Qualified Code(s): N39.0 - Urinary tract infection, site not specified; R31.9 - Hematuria, unspecified
--- NOTE | 2019-05-31 06:24 | XRay Report ---
XR chest 1V portable HISTORY: 84 years-old Male Dyspnea acute shortness of breath COMPARISON: Chest radiograph 04/20/2019, and 03/25/[address] 04/14/2019 TECHNIQUE: Portable AP view of the chest FINDINGS: Cardiac silhouette is enlarged, unchanged. Pulmonary vascular congestion. Severe emphysema with chron ic fibrosis. Right infrahilar and bibasilar opacities are noted. No pneumothorax or large pleural eff usion. Degenerative changes of the shoulders and spine. IMPRESSION: 1. Cardiomegaly with pulmonary vascular congestion. 2. Severe emphysema with chronic fibrotic changes. 3. Bibasilar opacities suggest atelectasis or pneumonitis. The above report was generated using voice recognition software. It may contain grammatical, syntax o r spelling errors. Electronically signed by: Lul Rendon M.D. 05/31/2019 6:22 AM
[2019-05-31] MEDS ORDERED: ACETAMINOPHEN 325 MG TAB PO PRN (09:06)
[2019-05-31] MEDS ORDERED: predniSONE 10 MG TABLET PO SCH (09:06)
[2019-05-31] MEDS ORDERED: LEVALBUTEROL TARTRATE 15 GM HFA.AER.AD INH PRN (09:06)
[2019-05-31] MEDS ORDERED: DOCUSATE SODIUM 100 MG CAP PO PRN (09:06)
[2019-05-31] MEDS ORDERED: TIOTROPIUM BROMIDE 5 PUFF/90 MCG INH INH SCH (09:06)
[2019-05-31] MEDS ORDERED: MAGNESIUM HYDROXIDE SUSP 30 ML UDC PO PRN (09:06)
[2019-05-31] MEDS ORDERED: ONDANSETRON INJ 2 MG/ML 2 ML VIAL IV PRN (09:06)
[2019-05-31] MEDS ORDERED: LEVOFLOXACIN/D5W 500 MG/100 ML BAG IV SCH (10:00)
[2019-05-31] MEDS: MONTELUKAST SODIUM 10 MG TABLET PO SCH (10:01)
[2019-05-31] MEDS: CHOLECALCIFEROL 1,000 UNITS TAB PO SCH (10:01)
[2019-05-31] MEDS: guaiFENesin 600 MG TABCR PO SCH ×2 (10:01→20:55)
[2019-05-31] MEDS: APIXABAN 2.5 MG TAB PO SCH ×2 (10:01→20:54)
[2019-05-31] MEDS: ALBUT/IPRATROP 3MG/0.5MG NEB 3 ML VIAL NEB SCH ×4 (10:33→19:49)
--- NOTE | 2019-05-31 10:51 | Cardiology Consultation ---
Date of Consultation May 31, 2019 Assessment & Plan (1) Atrial fibrillation with RVR: Continuing therapeutic anticoagulation with Eliquis 2.5 PO BID Metoprolol Succinate was held this AM due to systolic BP of 100; will give dose later today to ensure proper rate control. Will continue to monitor rhythm; candidate for electrical cardioversion tomorrow. Avoiding chemical cardioversion as pt is on levaquin for UTI and there is increased risk for QRS prolongation. Labs showed mildly low Mg at 1.7; 1g Mg given IV to replete. Will continue to monitor and replete as needed. Supervising Physician Co-Signing Physician Notes Case reviewed with Dr. Kelly and the patient was seen and examined with her. See full cardiology consultation for details. History of Present Illness Attending Physician: Ashvin Arndt MD History of Present Illness Pleasant 84 yo M admitted overnight from ED for shortness of breath and found to be in Afib with RVR per EKG at 5 AM. This morning denies any headaches, blurring of vision, chest pain, chest tightness, shortness of breath, pain with deep silva ths. Occasionally feels like his heart is racing but otherwise denies feeling runs of Afib. Daughter says his heart rate at home normally runs from 95 - 110 even when in normal sinus rhythm. Received 1 dose of digoxin in ED. First Afib episode was in July of 2018. Has been on Eliquis and Metoporolol Succinate 50 mg since then. Only stopped Eliquis for Urologic intervention on kidney stones; has been on eliquis for past 3 weeks. Last Echo was in January 2019 with EF 55%. Allergies Allergy/AdvReac Type Severity Reaction Status Date / Time tamsulosin Allergy Unknown Unknown Verified 05/31/19 04:19 cilostazol AdvReac Unknown dizziness, Verified 05/31/19 04:19 palpitations diltiazem AdvReac Unknown dizziness, Verified 05/31/19 04:19 palpitations simvastatin AdvReac Unknown dizziness Verified 05/31/19 04:19 Home Medications Home Medications Medication Instructions Recorded Confirmed Type benzonatate 100 mg capsule 100 mg PO QPM PRN #30 cap 03/11/19 05/31/19 Rx tiotropium bromide 18 mcg capsule 1 cap INHALATION DAILY #30 puffs 03/11/19 05/31/19 Rx with inhalation device cholecalciferol (vitamin D3) 2,000 2,000 units PO DAILY #30 cap 03/15/19 05/31/19 Rx unit capsule albuterol sulfate 2 puff INHALATION Q4H PRN 03/23/19 05/31/19 History docusate sodium [Stool Softener] 100 mg PO BID PRN 03/23/19 05/31/19 History dutasteride 0.5 mg PO QAM 03/23/19 05/31/19 History guaifenesin [Mucinex] 1,200 mg PO BID 03/23/19 05/31/19 History ipratropium-albuterol 3 ml INHALATION TID 03/23/19 05/31/19 History metoprolol succinate 50 mg PO QAM 03/23/19 05/31/19 History pravastatin 20 mg PO QPM 03/23/19 05/31/19 History Dulera 1 puff INHALATION Q12H 04/13/19 05/31/19 History levalbuterol HFA 45 mcg/actuation 1 puffs INH Q6H PRN 05/08/19 05/31/19 History aerosol inhaler prednisone 10 mg tablet 10 mg PO DAILY #30 tab 05/12/19 05/31/19 Rx acetaminophen 650 mg PO Q6H PRN 05/31/19 05/31/19 History apixaban [Eliquis] 2.5 mg PO BID 05/31/19 05/31/19 History fluticasone propionate 2 sprays INTNAS DAILY 05/31/19 05/31/19 History furosemide 20 mg PO Q2D 05/31/19 05/31/19 History lisinopril 20 mg PO DAILY 05/31/19 05/31/19 History montelukast 10 mg PO QAM 05/31/19 05/31/19 History oxycodone 5 mg PO HS 05/31/19 05/31/19 History potassium chloride [Klor-Con M20] 20 meq PO Q2D 05/31/19 05/31/19 History Patient History Medical History Paroxysmal atrial fibrillation Dx 07/28/18 during admission for COPD exacerbation. Initially in RVR, but spontaneously converted; started on Metoprolol and Eliquis. Eliquis discontinued during admission 03/08/19 due to hematuria. 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 Advised to avoid salt. Asthma Cachexia Enlarged prostate Hematuria 2/2 renal calculi Hypertension Indwelling Venegas catheter present On home oxygen therapy 2lpm via n/c Surgical History History of appendectomy History of colonoscopy History of cystoscopy WITH STENT, during admission 03/2019 History of lithotripsy History of tonsillectomy Hx of transurethral resection of prostate Family History Mother Cancer thyroid Brother Myocardial infarction Prostate cancer Father No problems noted. Other Family history non-contributory No significant family history Social History Preferred Language: Chinese Communication Ability: Effective [place] Required: Yes Beliefs That Will Affect Care: None marital status: Current Living Situation: Spouse Current Living Situation Comment: currently has home health services Feels Safe at Home: Yes Smoking Status: Former smoker Tobacco Type: cigarettes ; Cigarettes Per Day: 20 ; Second Hand Exposure: No ; Hx Alcohol Use: Yes Alcohol type: beer Hx Substance Use: No Review of Systems Respiratory: no cough, no dyspnea and no pain on inspiration Cardiovascular: no chest pain, no dyspnea, no lightheadedness and no edema Gastrointestinal: no nausea Physical Exam Constitutional: + thin and + frail appearing; no acute distress Respiratory: normal respiratory effort; no respiratory distress Auscultation: lungs clear to auscultation bilaterally; no crackles and no wheezes Cardiovascular: Rate/Rhythm: + tachycardic and + irregularly irregular Heart Sounds: no abnormal opening sounds, no gallop, no murmur and no cardiac rub Vessels: normal peripheral pulses Extremities: no calf tenderness, no pedal edema and no edema Results & Data Vital Signs (Past 12 Hours) Vital Signs Temp Pulse Pulse Resp BP BP Pulse Ox 05/31/19 09:19 36.6 C 103 H 20 100/60 98 05/31/19 08:15 110 H 22 100/47 L 100 05/31/19 08:00 111 H 20 93/56 L 100 05/31/19 07:45 107 H 20 98/50 L 100 05/31/19 07:36 122 H 20 95/54 L 99 05/31/19 07:30 129 H 20 99/53 L 99 05/31/19 07:00 121 H 19 98/62 L 99 05/31/19 06:52 113 H 25 H 104/55 L 99 05/31/19 06:44 123 H 20 109/55 L 98 05/31/19 06:34 121 H 20 91/56 L 99 05/31/19 06:07 137 H 18 97/58 L 98 05/31/19 05:20 130 H 20 115/64 99 05/31/19 05:11 143 H 18 95/46 L 98 05/31/19 04:18 146 H 16 114/86 96 05/31/19 04:09 94 05/31/19 03:45 37 C 144 H 30 H 114/86 96 Laboratory Results 05/31/19 05/31/19 05/31/19 Range/Units 04:08 04:08 04:08 WBC 13.44 H (4.8-10.8) K/uL RBC 3.52 L (4.7-6.1) M/uL Hgb 11.3 L (14.0-18.0) g/dL Hct 35.0 L (42-52) % MCV 99.4 (80-100) fL MCH 32.1 (25-34) pg MCHC 32.3 (32-36) g/dL RDW Std Deviation 53.8 H (36.4-46.3) fL RDW Coeff of Ashley 14.7 H (11.5-14.5) % Plt Count 266 (130-400) K/uL MPV 9.7 (7.4-10.4) fL Immature Gran % (Auto) 1.4 % Neut % (Auto) 89.6 % Lymph % (Auto) 5.6 % Maries % (Auto) 3.0 % Eos % (Auto) 0.3 % Baso % (Auto) 0.1 % Immature Gran # (Auto) 0.19 H (0.00-0.02) K/uL Neut # (Auto) 12.04 H (1.4-6.5) K/uL Lymph # (Auto) 0.75 L (1.2-3.4) K/uL Maries # (Auto) 0.40 (0.11-0.59) K/uL Eos # (Auto) 0.04 (0-0.5) K/uL Baso # (Auto) 0.02 (0-0.2) K/uL RBC Morphology Unremarkable Sodium 141 (136-145) mmol/L Potassium 4.2 (3.5-5.1) mmol/L Chloride 104 (98-107) mmol/L Carbon Dioxide 30 (21-32) mmol/L Anion Gap 7.0 (3-11) BUN 26 H (7-18) mg/dl Creatinine 0.99 (0.6-1.4) mg/dl Est Cr Clr Drug Dosing 43.4 ml/min Est GFR ( Amer) 80.7 Est GFR (Non-Af Amer) 69.6 BUN/Creatinine Ratio 26.1 H (10-20) Glucose 106 H (70-99) mg/dl Calcium 8.6 (8.5-10.1) mg/dl Magnesium 1.7 L (1.8-2.4) mg/dl Total Bilirubin 0.5 (0.2-1) mg/dl AST 12 L (15-37) U/L ALT 16 (12-78) U/L Alkaline Phosphatase 121 H (45-117) U/L Troponin I < 0.015 (0-0.045) ng/ml Total Protein 6.4 (6.4-8.2) gm/dl Albumin 2.8 L (3.4-5.0) gm/dl Globulin 3.6 (2.5-4.0) gm/dl Albumin/Globulin Ratio 0.8 L (0.9-2) Urine Color Urine Appearance (Clear) Urine pH (4.5-7.5) Ur Specific [place] (1.000-1.030) Urine Protein (Negative) Urine Glucose (UA) (Negative) Urine Ketones (Negative) Urine Blood (Negative) Urine Nitrite (Negative) Urine Bilirubin (Negative) Urine Urobilinogen (Negative) Ur Leukocyte Esterase (Negative) Urine WBC (Auto) (0-5) /hpf Urine RBC (Auto) (0-4) /hpf U Hyaline Cast (Auto) (0-5) /lpf U Epithel Cells (Auto) (0-5) /lpf Urine Bacteria (Auto) (Negative) Urine Yeast (None Prsent) 05/31/19 Range/Units 03:45 WBC (4.8-10.8) K/uL RBC (4.7-6.1) M/uL Hgb (14.0-18.0) g/dL Hct (42-52) % MCV (80-100) fL MCH (25-34) pg MCHC (32-36) g/dL RDW Std Deviation (36.4-46.3) fL RDW Coeff of Ashley (11.5-14.5) % Plt Count (130-400) K/uL MPV (7.4-10.4) fL Immature Gran % (Auto) % Neut % (Auto) % Lymph % (Auto) % Maries % (Auto) % Eos % (Auto) % Baso % (Auto) % Immature Gran # (Auto) (0.00-0.02) K/uL Neut # (Auto) (1.4-6.5) K/uL Lymph # (Auto) (1.2-3.4) K/uL Maries # (Auto) (0.11-0.59) K/uL Eos # (Auto) (0-0.5) K/uL Baso # (Auto) (0-0.2) K/uL RBC Morphology Sodium (136-145) mmol/L Potassium (3.5-5.1) mmol/L Chloride (98-107) mmol/L Carbon Dioxide (21-32) mmol/L Anion Gap (3-11) BUN (7-18) mg/dl Creatinine (0.6-1.4) mg/dl Est Cr Clr Drug Dosing ml/min Est GFR ( Amer) Est GFR (Non-Af Amer) BUN/Creatinine Ratio (10-20) Glucose (70-99) mg/dl Calcium (8.5-10.1) mg/dl Magnesium (1.8-2.4) mg/dl Total Bilirubin (0.2-1) mg/dl AST (15-37) U/L ALT (12-78) U/L Alkaline Phosphatase (45-117) U/L Troponin I (0-0.045) ng/ml Total Protein (6.4-8.2) gm/dl Albumin (3.4-5.0) gm/dl Globulin (2.5-4.0) gm/dl Albumin/Globulin Ratio (0.9-2) Urine Color Yellow Urine Appearance Turbid A (Clear) Urine pH 5.5 (4.5-7.5) Ur Specific [place] 1.016 (1.000-1.030) Urine Protein 2+ H (Negative) Urine Glucose (UA) Negative (Negative) Urine Ketones Negative (Negative) Urine Blood 3+ H (Negative) Urine Nitrite Positive A (Negative) Urine Bilirubin Negative (Negative) Urine Urobilinogen Negative (Negative) Ur Leukocyte Esterase 3+ H (Negative) Urine WBC (Auto) >30 H (0-5) /hpf Urine RBC (Auto) 5-10 H (0-4) /hpf U Hyaline Cast (Auto) 0 (0-5) /lpf U Epithel Cells (Auto) >30 H (0-5) /lpf Urine Bacteria (Auto) 4+ H (Negative) Urine Yeast Present A (None Prsent) ECG Indication: SOB/dyspnea Rhythm: atrial fibrillation PG Care Time/CCT Total # of Minutes Spent Total Time Spent with Patient: Total time spent is greater than 50% in coordination of care (as documented) at patient's floor/unit and/or counseling patient: Resident Activity Tracking Resident Involvement: Resident Care Provided Care Provided: Adult Hospital Medicine
[2019-05-31] MEDS: METOPROLOL SUCC 50MG EXT REL TAB PO SCH (11:09)
[2019-05-31] MEDS: MAGNESIUM SULFATE / D5W 1 GM/100 ML BAG IV SCH ×2 (11:09→12:05)
[2019-05-31] MEDS: methylPREDNISolone 40 MG in SYRINGE 0 ML IV SCH ×2 (12:05→20:54)
--- NOTE | 2019-05-31 14:13 | Urology Consultation ---
Date of Consultation May 31, 2019 Assessment & Plan (1) UTI (urinary tract infection): 84yo M with multiple comorbidities, s/p laser litho and pyelonephritis, readmitted with afib with RVR and nitrite positive UA Awaiting UC&S results, continue levaquin as ordered. Plan for KUB in AM to assess stone burden. Will discuss possible TOV with Dr. Irizarry tomorrow. Thank you for allowing us to participate in the acute care of Mr. Garcia. We will continue to follow. History of Present Illness Reason for Consultation: chronic tong Requesting Physician: Dr. Arndt Attending Physician: Ashvin Arndt MD History of Present Illness 84yo M established with Dr. Irizarry for care for hematuria, stones, chronic tong, was admitted through [facility] ED for c/o SOB. Pt found to be in Afib with RVR, with nitrite positive UA. Mr Garcia has had multiple hospitalizations this summer related to stone management, complicated by cardiopulmonary issues. He has had indwelling catheter since March, when he was admitted for hematuria. At that time, he was found to have a large right UPJ stone, which was emergently stented then subsequently treated by on 04/15/19; pt unfortunately suffered subsequent pyelonephritis which was treated appropriately. Ureteral stent has since been removed, however tong catheter has been maintained to max drainage. He is currently doing well from standpoint, his HR also back to normal. His daughter is at bedside. Denies any bother from tong, no suprapubic or flank pain. Per daughter, plan was to repeat KUB and if all looked satisfactory, plan for TOV this week with Dr. Irizarry. Allergies Allergy/AdvReac Type Severity Reaction Status Date / Time tamsulosin Allergy Unknown Unknown Verified 05/31/19 04:19 cilostazol AdvReac Unknown dizziness, Verified 05/31/19 04:19 palpitations diltiazem AdvReac Unknown dizziness, Verified 05/31/19 04:19 palpitations simvastatin AdvReac Unknown dizziness Verified 05/31/19 04:19 Home Medications Home Medications Medication Instructions Recorded Confirmed Type benzonatate 100 mg capsule 100 mg PO QPM PRN #30 cap 03/11/19 05/31/19 Rx tiotropium bromide 18 mcg capsule 1 cap INHALATION DAILY #30 puffs 03/11/19 05/31/19 Rx with inhalation device cholecalciferol (vitamin D3) 2,000 2,000 units PO DAILY #30 cap 03/15/19 05/31/19 Rx unit capsule albuterol sulfate 2 puff INHALATION Q4H PRN 03/23/19 05/31/19 History docusate sodium [Stool Softener] 100 mg PO BID PRN 03/23/19 05/31/19 History dutasteride 0.5 mg PO QAM 03/23/19 05/31/19 History guaifenesin [Mucinex] 1,200 mg PO BID 03/23/19 05/31/19 History ipratropium-albuterol 3 ml INHALATION TID 03/23/19 05/31/19 History metoprolol succinate 50 mg PO QAM 03/23/19 05/31/19 History pravastatin 20 mg PO QPM 03/23/19 05/31/19 History Dulera 1 puff INHALATION Q12H 04/13/19 05/31/19 History levalbuterol HFA 45 mcg/actuation 1 puffs INH Q6H PRN 05/08/19 05/31/19 History aerosol inhaler prednisone 10 mg tablet 10 mg PO DAILY #30 tab 05/12/19 05/31/19 Rx acetaminophen 650 mg PO Q6H PRN 05/31/19 05/31/19 History apixaban [Eliquis] 2.5 mg PO BID 05/31/19 05/31/19 History fluticasone propionate 2 sprays INTNAS DAILY 05/31/19 05/31/19 History furosemide 20 mg PO Q2D 05/31/19 05/31/19 History lisinopril 20 mg PO DAILY 05/31/19 05/31/19 History montelukast 10 mg PO QAM 05/31/19 05/31/19 History oxycodone 5 mg PO HS 05/31/19 05/31/19 History potassium chloride [Klor-Con M20] 20 meq PO Q2D 05/31/19 05/31/19 History Patient History Medical History Paroxysmal atrial fibrillation Dx 07/28/18 during admission for COPD exacerbation. Initially in RVR, but spontaneously converted; started on Metoprolol and Eliquis. Eliquis discontinued during admission 03/08/19 due to hematuria. 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 Advised to avoid salt. Asthma Cachexia Enlarged prostate Hematuria 2/2 renal calculi Hypertension Indwelling Tong catheter present On home oxygen therapy 2lpm via n/c Surgical History History of appendectomy History of colonoscopy History of cystoscopy WITH STENT, during admission 03/2019 History of lithotripsy History of tonsillectomy Hx of transurethral resection of prostate Family History Mother Cancer thyroid Brother Myocardial infarction Prostate cancer Father No problems noted. Other Family history non-contributory No significant family history Social History Preferred Language: Montenegrin Communication Ability: Effective Senior Software Developer Required: Yes Beliefs That Will Affect Care: None marital status: Current Living Situation: Spouse Current Living Situation Comment: currently has home health services Feels Safe at Home: Yes Smoking Status: Former smoker Tobacco Type: cigarettes ; Cigarettes Per Day: 20 ; Second Hand Exposure: No ; Hx Alcohol Use: Yes Alcohol type: beer Hx Substance Use: No Review of Systems Review of Systems: Constitutional: Denies fever, chills, sweats, malaise Eyes: Denies problem reported ENMT: Denies dizziness Resp: Denies cough, Denies shortness of breath CV: Denies JVD GI: Denies nausea/vomiting : Denies suprapubic or flank pain, dysuria, urgency, frequency, hematuria MS: Denies swelling, stiffness Integ: Denies rash, erythema Neuro: Denies falls, weakness Psych: Denies behavior change Endo: Denies polyphagia, polydipsia Heme: Denies easy bleeding Physical Exam Constitutional: no acute distress and not ill appearing Eyes: no nystagmus ENMT: Ears: + hearing impairment Neck: trachea midline Respiratory: + cough; no respiratory distress and does not use accessory muscles supplemental O2 intact Cardiovascular: Vessels: no JVD Chest (Breasts): Chest: normal inspection of chest Gastrointestinal (Abdomen): Inspection/Auscultation: abdomen not distended and no abdominal edema Percussion/Palpation: abdomen soft; abdomen nontender Musculoskeletal: Head/Neck/Chest: normocephalic and head atraumatic Skin: no rashes, warm and dry Neurologic: awake; not confused and not obtunded Psychiatric: Orientation: alert and oriented x 3 Eye Contact: good eye contact Affect: no depressed affect Genitourinary: bladder normal to inspection; no CVA tenderness Lymphatic: no lymphadenopathy and no lymphedema Results & Data Vital Signs (Past 12 Hours) Vital Signs Temp Pulse Pulse Resp BP BP BP 05/31/19 11:14 97 H 20 05/31/19 11:04 36.3 C L 100 H 18 90/50 L 05/31/19 09:19 36.6 C 103 H 20 100/60 05/31/19 08:15 110 H 22 100/47 L 05/31/19 08:00 111 H 20 93/56 L 05/31/19 07:45 107 H 20 98/50 L 05/31/19 07:36 122 H 20 95/54 L 05/31/19 07:30 129 H 20 99/53 L 05/31/19 07:00 121 H 19 98/62 L 05/31/19 06:52 113 H 25 H 104/55 L 05/31/19 06:44 123 H 20 109/55 L 05/31/19 06:34 121 H 20 91/56 L 05/31/19 06:07 137 H 18 97/58 L 05/31/19 05:20 130 H 20 115/64 05/31/19 05:11 143 H 18 95/46 L 05/31/19 04:18 146 H 16 114/86 05/31/19 04:09 05/31/19 03:45 37 C 144 H 30 H 114/86 Pulse Ox 05/31/19 11:14 94 05/31/19 11:04 99 05/31/19 09:19 98 05/31/19 08:15 100 05/31/19 08:00 100 05/31/19 07:45 100 05/31/19 07:36 99 05/31/19 07:30 99 05/31/19 07:00 99 05/31/19 06:52 99 05/31/19 06:44 98 05/31/19 06:34 99 05/31/19 06:07 98 05/31/19 05:20 99 05/31/19 05:11 98 05/31/19 04:18 96 05/31/19 04:09 94 05/31/19 03:45 96 (1) UTI (urinary tract infection) Hematuria presence: with hematuria Urinary tract infection type: site unspecified Qualified Code(s): N39.0 - Urinary tract infection, site not specified; R31.9 - Hematuria, unspecified
[2019-05-31] MEDS: ACETAMINOPHEN 325 MG TAB PO PRN (14:27)
--- NOTE | 2019-05-31 16:36 | Cardiology Consultation ---
Date of Consultation May 31, 2019 Assessment & Plan (1) Atrial fibrillation with RVR: He has once again been identified as having atrial fibrillation following admission for COPD. He is unaware of it, I suspect he has frequent episodes of atrial fibrillation of which he is unaware. Although it may be triggered by the exacerbation of his COPD may also be unrelated. His heart rate on his home on pressure cuff is occasionally elevated which may mean he has atrial fibrillation there although I do not think that has been documented. At this point I would recommend observation with low-dose beta-blockade (which he is on). With his borderline blood pressure I am reluctant to go up much more to add calcium blockade. I may add low-dose digoxin which could be helpful. I suspect he will convert out of it on his own, he has been properly anticoagulated so we could consider cardioversion if needed. (2) Anticoagulant long-term use: He is currently on Eliquis and seems to be on an appropriate dose given his age and weight. His anticoagulation was held for ureteral stenting but he has been on it now for about 3 weeks which should be adequate if we would want to cardiovert. At the moment however I do not think we need to do that. (3) COPD exacerbation: He is here for COPD exacerbation, he is on low-dose metoprolol without prefer to keep this in place if possible. If not we could consider switching to diltiazem. History of Present Illness Reason for Consultation: A fib with RVR Attending Physician: Ashvin Arndt MD History of Present Illness This is an 84-year-old male who has a history of hypertension, hyperlipidemia and COPD as well as atrial fibrillation. He was last admitted for COPD but had a 4-hour episode of atrial fibrillation identified on telemetry in July 2018. He was asymptomatic with it. He is once again admitted for an exacerbation of COPD which was characterized by shortness of breath and anxiety according to his daughter as well as a rapid heart rate. In the emergency room he was in sinus tachycardia although shortly after arrival he developed atrial fibrillation. Atrial fibrillation has not been aggressively treated as he is asymptomatic in the arrhythmia, the heart r ate is not terribly fast and he is relatively hypotensive. At the time of my evaluation he was short of breath but had no other cardiovascular complaints. He had no lightheadedness or dizziness, he denied palpitations. He had no chest discomfort. Allergies Allergy/AdvReac Type Severity Reaction Status Date / Time tamsulosin Allergy Unknown Unknown Verified 05/31/19 04:19 cilostazol AdvReac Unknown dizziness, Verified 05/31/19 04:19 palpitations diltiazem AdvReac Unknown dizziness, Verified 05/31/19 04:19 palpitations simvastatin AdvReac Unknown dizziness Verified 05/31/19 04:19 Home Medications Home Medications Medication Instructions Recorded Confirmed Type benzonatate 100 mg capsule 100 mg PO QPM PRN #30 cap 03/11/19 05/31/19 Rx tiotropium bromide 18 mcg capsule 1 cap INHALATION DAILY #30 puffs 03/11/19 05/31/19 Rx with inhalation device cholecalciferol (vitamin D3) 2,000 2,000 units PO DAILY #30 cap 03/15/19 05/31/19 Rx unit capsule albuterol sulfate 2 puff INHALATION Q4H PRN 03/23/19 05/31/19 History docusate sodium [Stool Softener] 100 mg PO BID PRN 03/23/19 05/31/19 History dutasteride 0.5 mg PO QAM 03/23/19 05/31/19 History guaifenesin [Mucinex] 1,200 mg PO BID 03/23/19 05/31/19 History ipratropium-albuterol 3 ml INHALATION TID 03/23/19 05/31/19 History metoprolol succinate 50 mg PO QAM 03/23/19 05/31/19 History pravastatin 20 mg PO QPM 03/23/19 05/31/19 History Dulera 1 puff INHALATION Q12H 04/13/19 05/31/19 History levalbuterol HFA 45 mcg/actuation 1 puffs INH Q6H PRN 05/08/19 05/31/19 History aerosol inhaler prednisone 10 mg tablet 10 mg PO DAILY #30 tab 05/12/19 05/31/19 Rx acetaminophen 650 mg PO Q6H PRN 05/31/19 05/31/19 History apixaban [Eliquis] 2.5 mg PO BID 05/31/19 05/31/19 History fluticasone propionate 2 sprays INTNAS DAILY 05/31/19 05/31/19 History furosemide 20 mg PO Q2D 05/31/19 05/31/19 History lisinopril 20 mg PO DAILY 05/31/19 05/31/19 History montelukast 10 mg PO QAM 05/31/19 05/31/19 History oxycodone 5 mg PO HS 05/31/19 05/31/19 History potassium chloride [Klor-Con M20] 20 meq PO Q2D 05/31/19 05/31/19 History Patient History Medical History Paroxysmal atrial fibrillation Dx 07/28/18 during admission for COPD exacerbation. Initially in RVR, but spontaneously converted; started on Metoprolol and Eliquis. Eliquis discontinued during admission 03/08/19 due to hematuria. Weight loss (Acute) Vitamin D deficiency (Acute) Urinary retention (Acute) Sinus tachycardia (Acute) Pulmonary nodule (Acute) Pulmonary emphysema (Acute) PAD (peripheral artery disease) (Acute) Leukocytosis (Acute) Insomnia (Acute) Carotid artery plaque (Acute) <50% stenosis of internal carotids B/L by 2017 doppler Eda disease (Acute) Benign prostatic hyperplasia with urinary obstruction (Acute) Anemia (Acute) Actinic keratosis (Acute) Nephrolithiasis (Acute) UTI (urinary tract infection) (Acute) Chronic kidney disease, stage 3 Chronic diastolic heart failure 2+ ankle edema on exam at PAT Hyperlipidemia Ankle edema, bilateral Pt admits to eating salty snacks lately. Advised to avoid salt. Asthma Cachexia Enlarged prostate Hematuria 2/2 renal calculi Hypertension Indwelling Venegas catheter present On home oxygen therapy 2lpm via n/c Surgical History History of appendectomy History of colonoscopy History of cystoscopy WITH STENT, during admission 03/2019 History of lithotripsy History of tonsillectomy Hx of transurethral resection of prostate Family History Mother Cancer thyroid Brother Myocardial infarction Prostate cancer Father No problems noted. Other Family history non-contributory No significant family history Social History Preferred Language: [place] Communication Ability: Effective Director Life Sales Required: Yes Beliefs That Will Affect Care: None marital status: Current Living Situation: Spouse Current Living Situation Comment: currently has home health services Feels Safe at Home: Yes Smoking Status: Former smoker Tobacco Type: cigarettes ; Cigarettes Per Day: 20 ; Second Hand Exposure: No ; Hx Alcohol Use: Yes Alcohol type: beer Hx Substance Use: No Physical Exam Physical Exam: Constitutional: Alert, cooperative and in mild respiratory distress. HEENT: Unremarkable, on nasal O2 Neck: No jugular venous distention, carotid pulses are irregular but otherwise normal and equal bilaterally without bruits. Pulmonary: Crackles bilaterally on auscultation. Cardiac: Irregular rhythm with no murmur, gallop or rub. Abdomen: Soft, nontender with normal bowel sounds. Extremities: No edema. Distal pulses intact. Neurologic: No focal findings. Gait is steady. Skin: No rash, ecchymoses or petechiae. Results & Data Vital Signs (Past 12 Hours) Vital Signs Temp Pulse Pulse Resp BP BP BP 05/31/19 15:15 36.4 C L 99 H 22 101/63 05/31/19 15:12 72 16 05/31/19 11:14 97 H 20 05/31/19 11:04 36.3 C L 100 H 18 90/50 L 05/31/19 09:19 36.6 C 103 H 20 100/60 05/31/19 08:15 110 H 22 100/47 L 05/31/19 08:00 111 H 20 93/56 L 05/31/19 07:45 107 H 20 98/50 L 05/31/19 07:36 122 H 20 95/54 L 05/31/19 07:30 129 H 20 99/53 L 05/31/19 07:00 121 H 19 98/62 L 05/31/19 06:52 113 H 25 H 104/55 L 05/31/19 06:44 123 H 20 109/55 L 05/31/19 06:34 121 H 20 91/56 L 05/31/19 06:07 137 H 18 97/58 L 05/31/19 05:20 130 H 20 115/64 05/31/19 05:11 143 H 18 95/46 L Pulse Ox 05/31/19 15:15 100 05/31/19 15:12 100 05/31/19 11:14 94 05/31/19 11:04 99 05/31/19 09:19 98 05/31/19 08:15 100 05/31/19 08:00 100 05/31/19 07:45 100 05/31/19 07:36 99 05/31/19 07:30 99 05/31/19 07:00 99 05/31/19 06:52 99 05/31/19 06:44 98 05/31/19 06:34 99 05/31/19 06:07 98 05/31/19 05:20 99 05/31/19 05:11 98 Diagnostic Findings His electrocardiogram on admission at 3:40 AM this morning May 31, 2019 shows sinus tachycardia at a rate of 141 bpm with no acute changes. A repeat electrocardiogram May 31, 2019 at 5:06 AM shows atrial fibrillation with a very similar heart rate of 147 bpm. Telemetry: Sinus Tachycardia briefly in the emergency room followed by atrial fibrillation with a heart rate which is averaging around 100 with some variability. PG Care Time/CCT Total # of Minutes Spent Total Time Spent with Patient: Total time spent is greater than 50% in coordination of care (as documented) at patient's floor/unit and/or counseling patient:
--- NOTE | 2019-05-31 17:16 | XRay Report ---
XR KUB/Abdomen 1 view CLINICAL HISTORY: assess stone burden nephrocalcinosis COMPARISON STUDY: 04/26/2019 FINDINGS: Generalized nonobstructive ileus. Air within the bowel effectively obscures the bulk of the urinary tracts. Several prosthetic calcifications unchanged. Interval removal of the right ureteral stent. IMPRESSION: Nondiagnostic evaluation of the urinary tracts due to extensive overlying bowel content and bowel gas. Interval removal of the right ureteral stent. The above report was generated using voice recognition software. It may contain grammatical, syntax or spelling errors. Electronically signed by: Derrek Watkins M.D. 05/31/2019 5:14 PM
[2019-05-31] MEDS: DUTASTERIDE ~ ORDER AWAITING ACTION SCH (18:36)
[2019-05-31] MEDS: PRAVASTATIN SOD 20 MG TAB PO SCH (20:56)
[2019-05-31] MEDS: OXYCODONE HCL IR 5 MG TAB (IMMEDIATE RELEASE) PO SCH (21:13)
--- NOTE | 2019-05-31 21:35 | History & Physical Bridge Note ---
Date of Service May 31, 2019 History & Physical Bridge Note I have examined the patient, reviewed the History & Physical and in the interval since the performance of the History & Physical I have noted the following changes of clinical significance: Heart rates improved throughout the day, BPs remained low--> gave another bolus of 500mL of NS. Discussed case with Cardiology PA/Cardiology resident. Hold Spiriva while on scheduled Duonebs. Hold home prednisone while on IV Solu Medrol. Continue current care otherwise
[2019-06-01] MEDS: DUTASTERIDE ~ ORDER AWAITING ACTION SCH ×4 (02:14→23:44)
[2019-06-01] MEDS: methylPREDNISolone 40 MG in SYRINGE 0 ML IV SCH ×3 (03:34→20:34)
[2019-06-01 06:11] LABS: Basophils # (auto) 0.01 K/uL (0-0.2); Basophils % (auto) 0.1 %; Hematocrit (blood only) 28.3 % (42-52); Hemoglobin 9.6 g/dL (14.0-18.0); Immature Granulocytes # (auto) 0.07 K/uL (0.00-0.02); Immature Granulocytes % (auto) 0.6 %; Lymphocytes # (auto) 0.44 K/uL (1.2-3.4); Lymphocytes % (auto) 3.6 %; Mean Corpuscular Hemoglobin 33.7 pg (25-34); Mean Corpuscular Hgb Conc 33.9 g/dL (32-36); Mean Corpuscular Volume 99.3 fL (80-100); Mean Platelet Volume 9.4 fL (7.4-10.4); Monocytes # (auto) 0.38 K/uL (0.11-0.59); Monocytes % (auto) 3.1 %; Neutrophils # (auto) 11.27 K/uL (1.4-6.5); Neutrophils % (auto) 92.6 %; Platelet Count 228 K/uL (130-400); RDW Coefficient of Variation 14.7 % (11.5-14.5); RDW Standard Deviation 53.6 fL (36.4-46.3); Red Blood Count 2.85 M/uL (4.7-6.1); White Blood Count 12.17 K/uL (4.8-10.8)
[2019-06-01 06:52] LABS: BUN Creatinine Ratio 27.4 (10-20); Calcium 8.9 mg/dl (8.5-10.1); Est GFR (African American) 64.6; Est GFR (Non-African American) 55.8; Magnesium 2.5 mg/dl (1.8-2.4); Potassium 4.9 mmol/L (3.5-5.1)
[2019-06-01 07:01] LABS: Thyroid Stimulating Hormone 0.103 uIu/ml (0.300-4.500)
[2019-06-01] MEDS: ALBUT/IPRATROP 3MG/0.5MG NEB 3 ML VIAL NEB SCH ×4 (07:17→19:18)
[2019-06-01 07:22] LABS: Folate (Folic Acid) 6.02 ng/ml (>5.38)
[2019-06-01] MEDS: LEVOFLOXACIN/D5W 250 MG/50 ML BAG IV SCH (08:32)
[2019-06-01] MEDS: APIXABAN 2.5 MG TAB PO SCH ×2 (08:32→20:35)
[2019-06-01] MEDS: METOPROLOL SUCC 50MG EXT REL TAB PO SCH (08:33)
[2019-06-01] MEDS: MONTELUKAST SODIUM 10 MG TABLET PO SCH (08:33)
[2019-06-01] MEDS: guaiFENesin 600 MG TABCR PO SCH ×2 (08:33→20:35)
[2019-06-01] MEDS: CHOLECALCIFEROL 1,000 UNITS TAB PO SCH (08:36)
[2019-06-01] MEDS: ACETAMINOPHEN 325 MG TAB PO PRN ×2 (08:36→18:04)
[2019-06-01] MEDS ORDERED: FUROSEMIDE 40 MG TAB PO SCH (09:00)
[2019-06-01] MEDS ORDERED: POTASSIUM CHLORIDE 20 MEQ TABCR PO SCH (09:00)
[2019-06-01] MEDS ORDERED: FUROSEMIDE 20 MG TAB PO SCH (09:00)
--- NOTE | 2019-06-01 09:33 | Urology Progress Note ---
Date of Service June 01, 2019 Assessment & Plan (1) UTI (urinary tract infection): 84yo M with multiple comorbidities, s/p laser litho and pyelonephritis, readmitted with afib with RVR and nitrite positive UA Awaiting UC&S results, continue levaquin as ordered. KUB - unable to view due to copious bowel gas. Discussed with Dr. Irizarry, no need for further imaging at this time and okay for passive TOV today. Okay to bladder scan PRN, straight cath for PVR >400cc. Supervising Physician Co-Signing Physician Notes Agree with above Subjective 84yo M with multiple comorbidities, s/p laser litho and pyelonephritis, readmitted with afib with RVR and nitrite positive UA. Pt doing well this AM, denies any further HR issues. He did not sleep well but this is his norm. Denies suprapubic pain or discomfort with tong. Continues to drain clear yellow. KUB done this AM, view obstructed by large amount of gas. Pt states he always has issues with this, usually has BM once every 3-4 days. Last BM on Friday, denies abdominal pain or discomfort. Review of Systems Review of Systems: All systems reviewed & are unremarkable except as noted in HPI & below Physical Exam Constitutional: no acute distress and not ill appearing Eyes: no nystagmus ENMT: Ears: no hearing impairment Neck: trachea midline Respiratory: no respiratory distress and no cough supplemental O2 intact Cardiovascular: Vessels: no JVD Chest (Breasts): Chest: normal inspection of chest Gastrointestinal (Abdomen): Inspection/Auscultation: abdomen not distended and no abdominal edema Percussion/Palpation: abdomen soft; abdomen nontender Musculoskeletal: Head/Neck/Chest: normocephalic and head atraumatic Skin: no rashes, warm and dry Neurologic: awake; not confused and not obtunded Psychiatric: Orientation: alert and oriented x 3 Eye Contact: good eye contact Affect: no depressed affect Genitourinary: bladder normal to inspection; no CVA tenderness Lymphatic: no lymphadenopathy and no lymphedema Results & Data Vital Signs (Past 12 Hours) Vital Signs Temp Pulse Resp BP Pulse Ox 06/01/19 07:17 79 18 98 06/01/19 07:05 36.3 C L 86 16 102/64 100 06/01/19 03:27 36.4 C L 93 H 18 99/53 L 99 05/31/19 23:54 36.5 C 101 H 19 104/60 99 (1) UTI (urinary tract infection) Hematuria presence: with hematuria Urinary tract infection type: site unspecified Qualified Code(s): N39.0 - Urinary tract infection, site not specified; R31.9 - Hematuria, unspecified
[2019-06-01] MEDS: FOLIC ACID 1 MG TAB PO SCH (10:29)
[2019-06-01] MEDS: CYANOCOBALAMIN 1000 MCG/ML VIAL IM SCH (10:29)
--- NOTE | 2019-06-01 17:14 | Cardiology Progress Note ---
Date of Service June 01, 2019 Assessment & Plan (1) Atrial fibrillation with RVR: He has once again been identified as having atrial fibrillation following admission for COPD. He is unaware of it, I suspect he has frequent episodes of atrial fibrillation of which he is unaware. Although it may be triggered by the exacerbation of his COPD it may also be unrelated. His heart rate on his home pressure cuff is occasionally elevated which may mean he has atrial fibrillation there although I do not think that has been documented. At this point I would continue observation with low-dose beta-blockade (which he is on). With his borderline blood pressure I am reluctant to go up much more to add calcium blockade, although his blood pressure seems to be improving. I may add low-dose digoxin which could be helpful. I suspect he will convert out of atrial fibrillation on his own, he has been properly anticoagulated so we could consider cardioversion if needed. I am not going to arrange that just yet. Subjective He is feeling better today, his catheter was removed and he is happy about that. He has no awareness of his cardiac rhythm. Physical Exam Physical Exam: Constitutional: Alert, cooperative and in no distress. Pulmonary: Clear to auscultation bilaterally. Cardiac: Irregular rhythm with no murmur, gallop or rub. Abdomen: Soft, nontender with normal bowel sounds. Extremities: No edema. Skin: No rash, ecchymoses or petechiae. Results & Data Vital Signs (Past 12 Hours) Vital Signs Temp Pulse Resp BP Pulse Ox 06/01/19 15:22 36.7 C 116 H 19 129/80 97 06/01/19 15:08 103 H 18 96 06/01/19 11:29 97 H 18 99 06/01/19 10:54 36.5 C 91 H 16 118/78 100 06/01/19 07:17 79 18 98 06/01/19 07:05 36.3 C L 86 16 102/64 100 Diagnostic Findings Telemetry: He remains in atrial fibrillation, during the night the rate is well controlled, during the day it is somewhat high. PG Care Time/CCT Total # of Minutes Spent Total Time Spent with Patient: Total time spent is greater than 50% in coordination of care (as documented) at patient's floor/unit and/or counseling patient:
--- NOTE | 2019-06-01 18:33 | Hospitalist Progress Note ---
Date of Service June 01, 2019 Assessment & Plan (1) Atrial fibrillation with RVR: Atrial fibrillation with RVR-started in ER upon admission In the past has spontaneously converted Initially, systolic blood pressure in the upper 90s-now improved with IVF hydration Echocardiogram in 01/22 showed EF 55%. Patient was intravascularly dry on admission. with COPD exacerbation and UTI Patient was given Lopressor 5 mg IV x2 by the ED with minimal effect. Was given IVFs and Albumin 25 g IV x2 to help improve blood pressure. Digoxin 0.25 mg IV x1 given on admission but not continued Holding lisinopril. Continue apixaban 2.5 mg twice daily. -ok to continue Metoprolol succinate 50 mg p.o. every morning Consult cardiology appreciated-plan for possible DCCV -cont tele monitoring (2) COPD exacerbation: Improving with IV Solu Medrol and scheduled nebs -continue Duonebs 4 times daily and every 2 hours as needed. -continue Solu-Medrol 40 mg IV every 8 hours. -cont supplemental O2 to keep POx>90% (3) UTI (urinary tract infection): Most recent infections have been with Morganella and Enterococcus faecalis, both of which have been sensitive to levofloxacin. -continue levofloxacin IV every 24 hours, also cover possible lung organisms. -await urine culture Buckley catheter removed on 06/01 (4) Chronic indwelling Buckley catheter: [facility] h/u large UPJ stones and pyelonephritis, chronic Buckley for several months -Urol consulted and removed Buckley 06/01 -awaiting TOV (5) Anemia: Hgb mildly low in 11 range with macrocytosis on admission Hgb dropped to 9.6 today, likely somewhat dilutional Folate borderline low at 6, B12 low at 196, TSH low but FT4 normal -start B12 IM 1000mcg daily x 3 days then convert to po B12 -start folate 1mg po qday -repeat TSH in 4 weeks when not acutely ill, no thyroid nodules on exam -continue ELiquis, no gross bleeding -check Hemoccult -follow CBC in AM (6) BPH (benign prostatic hyperplasia): as above, Buckley removed not on meds for BPH (7) Chronic respiratory failure with hypoxia: continue on supplemental O2 (8) DVT prophylaxis: Eliquis Dispo-remain on PCU Subjective Feeling much better, less SOB, on home O2 amount 2LNC. Denies chest pain. Has had some low back pain from sitting in the bed too much. He had Buckley catheter removed today from Urology and has not yet voided in 6 hours. Has not had a BM in 2 days, has a lot of gas. Tele with Afib with rates in the 60s-130s Review of Systems Review of Systems: All systems reviewed & are unremarkable except as noted in HPI & below Physical Exam Constitutional: + thin; no acute distress Eyes: + anicteric sclerae Neck: trachea midline, no thyromegaly Thyroid: normal thyroid; no thyroid m ass and no thyroid nodules Respiratory: normal respiratory effort Auscultation: + wheezes (exp wheezes faint bilat); no crackles and no rhonchi Cardiovascular: Rate/Rhythm: + tachycardic and + irregularly irregular Heart Sounds: no murmur Extremities: no edema Gastrointestinal (Abdomen): normal bowel sounds, soft, nontender, no hepatosplenomegaly Inspection/Auscultation: + abdomen distended (mild ) Musculoskeletal: Extremities: extremities normal to inspection; no cyanosis and no clubbing Skin: no rashes, warm and dry Neurologic: moves all extremities and awake; no focal motor deficits Psychiatric: A+Ox3, euthymic affect Results & Data Vital Signs (Past 12 Hours) Vital Signs Temp Pulse Resp BP Pulse Ox 06/01/19 15:22 36.7 C 116 H 19 129/80 97 06/01/19 15:08 103 H 18 96 06/01/19 11:29 97 H 18 99 06/01/19 10:54 36.5 C 91 H 16 118/78 100 06/01/19 07:17 79 18 98 06/01/19 07:05 36.3 C L 86 16 102/64 100 Laboratory Results 06/01/19 06/01/19 06/01/19 Range/Units 05:52 05:52 05:52 WBC (4.8-10.8) K/uL RBC (4.7-6.1) M/uL Hgb (14.0-18.0) g/dL Hct (42-52) % MCV (80-100) fL MCH (25-34) pg MCHC (32-36) g/dL RDW Std Deviation (36.4-46.3) fL RDW Coeff of Ashley (11.5-14.5) % Plt Count (130-400) K/uL MPV (7.4-10.4) fL Immature Gran % (Auto) % Neut % (Auto) % Lymph % (Auto) % Childress % (Auto) % Eos % (Auto) % Baso % (Auto) % Immature Gran # (Auto) (0.00-0.02) K/uL Neut # (Auto) (1.4-6.5) K/uL Lymph # (Auto) (1.2-3.4) K/uL Childress # (Auto) (0.11-0.59) K/uL Eos # (Auto) (0-0.5) K/uL Baso # (Auto) (0-0.2) K/uL Sodium 140 (136-145) mmol/L Potassium 4.9 D (3.5-5.1) mmol/L Chloride 105 (98-107) mmol/L Carbon Dioxide 28 (21-32) mmol/L Anion Gap 7.0 (3-11) BUN 33 H (7-18) mg/dl Creatinine 1.19 (0.6-1.4) mg/dl Est Cr Clr Drug Dosing 35.0 ml/min Est GFR ( Amer) 64.6 Est GFR (Non-Af Amer) 55.8 BUN/Creatinine Ratio 27.4 H (10-20) Glucose 141 H (70-99) mg/dl Calcium 8.9 (8.5-10.1) mg/dl Magnesium 2.5 H (1.8-2.4) mg/dl Vitamin B12 196 L (211-911) pg/ml Folate 6.02 (>5.38) ng/ml TSH 0.103 L (0.300-4.500) uIu/ml Free T4 1.08 (0.8-1.6) ng/dl 06/01/19 Range/Units 05:52 WBC 12.17 H (4.8-10.8) K/uL RBC 2.85 L (4.7-6.1) M/uL Hgb 9.6 L (14.0-18.0) g/dL Hct 28.3 L (42-52) % MCV 99.3 (80-100) fL MCH 33.7 (25-34) pg MCHC 33.9 (32-36) g/dL RDW Std Deviation 53.6 H (36.4-46.3) fL RDW Coeff of Ashley 14.7 H (11.5-14.5) % Plt Count 228 (130-400) K/uL MPV 9.4 (7.4-10.4) fL Immature Gran % (Auto) 0.6 % Neut % (Auto) 92.6 % Lymph % (Auto) 3.6 % Childress % (Auto) 3.1 % Eos % (Auto) 0.0 % Baso % (Auto) 0.1 % Immature Gran # (Auto) 0.07 H (0.00-0.02) K/uL Neut # (Auto) 11.27 H (1.4-6.5) K/uL Lymph # (Auto) 0.44 L (1.2-3.4) K/uL Childress # (Auto) 0.38 (0.11-0.59) K/uL Eos # (Auto) 0.00 (0-0.5) K/uL Baso # (Auto) 0.01 (0-0.2) K/uL Sodium (136-145) mmol/L Potassium (3.5-5.1) mmol/L Chloride (98-107) mmol/L Carbon Dioxide (21-32) mmol/L Anion Gap (3-11) BUN (7-18) mg/dl Creatinine (0.6-1.4) mg/dl Est Cr Clr Drug Dosing ml/min Est GFR ( Amer) Est GFR (Non-Af Amer) BUN/Creatinine Ratio (10-20) Glucose (70-99) mg/dl Calcium (8.5-10.1) mg/dl Magnesium (1.8-2.4) mg/dl Vitamin B12 (211-911) pg/ml Folate (>5.38) ng/ml TSH (0.300-4.500) uIu/ml Free T4 (0.8-1.6) ng/dl PG Care Time/CCT Total # of Minutes Spent Total Time Spent with Patient: Total time spent is greater than 50% in coordination of care (as documented) at patient's floor/unit and/or counseling patient: (1) UTI (urinary tract infection) Hematuria presence: with hematuria Urinary tract infection type: site unspecified Qualified Code(s): N39.0 - Urinary tract infection, site not specified; R31.9 - Hematuria, unspecified (2) BPH (benign prostatic hyperplasia) Lower urinary tract symptom presence: unspecified whether lower urinary tract symptoms present Qualified Code(s): N40.0 - Benign prostatic hyperplasia without lower urinary tract symptoms
[2019-06-01] MEDS: POLYETHYLENE (MIRALAX) 17 GM PACK PO SCH (20:34)
[2019-06-01] MEDS: PRAVASTATIN SOD 20 MG TAB PO SCH (20:35)
[2019-06-01] MEDS: DOCUSATE SODIUM 100 MG CAP PO SCH (20:35)
[2019-06-01] MEDS: OXYCODONE HCL IR 5 MG TAB (IMMEDIATE RELEASE) PO SCH (22:03)
[2019-06-01] MEDS: BENZONATATE 100 MG CAPSULE PO PRN (23:41)
[2019-06-01] MEDS: ALUMINUM/MAGNESIUM SUSP 30 ML UDC PO PRN (23:44)
[2019-06-02] MEDS: methylPREDNISolone 40 MG in SYRINGE 0 ML IV SCH ×3 (03:13→20:19)
[2019-06-02] MEDS ORDERED: SODIUM CHLORIDE 0.65% NA SOLN 45 ML (OCEAN) ONE (03:26)
[2019-06-02 06:08] LABS: Hematocrit (blood only) 29.8 % (42-52); Hemoglobin 9.9 g/dL (14.0-18.0); Immature Granulocytes # (auto) 0.08 K/uL (0.00-0.02); Immature Granulocytes % (auto) 0.5 %; Lymphocytes # (auto) 0.47 K/uL (1.2-3.4); Lymphocytes % (auto) 3.1 %; Mean Corpuscular Hemoglobin 32.7 pg (25-34); Mean Corpuscular Hgb Conc 33.2 g/dL (32-36); Mean Corpuscular Volume 98.3 fL (80-100); Mean Platelet Volume 9.3 fL (7.4-10.4); Monocytes # (auto) 0.56 K/uL (0.11-0.59); Monocytes % (auto) 3.7 %; Neutrophils # (auto) 14.05 K/uL (1.4-6.5); Neutrophils % (auto) 92.7 %; Platelet Count 278 K/uL (130-400); RDW Coefficient of Variation 14.7 % (11.5-14.5); RDW Standard Deviation 52.9 fL (36.4-46.3); Red Blood Count 3.03 M/uL (4.7-6.1); White Blood Count 15.16 K/uL (4.8-10.8)
[2019-06-02 06:47] LABS: BUN Creatinine Ratio 36.5 (10-20); Calcium 9.3 mg/dl (8.5-10.1); Creatinine Clr Calc Pharmacy 38.6 ml/min; Est GFR (African American) 69.5; Potassium 4.9 mmol/L (3.5-5.1)
[2019-06-02] MEDS: ALBUT/IPRATROP 3MG/0.5MG NEB 3 ML VIAL NEB SCH ×4 (06:58→19:10)
[2019-06-02] MEDS: LEVOFLOXACIN/D5W 250 MG/50 ML BAG IV SCH (08:04)
[2019-06-02] MEDS: DUTASTERIDE ~ ORDER AWAITING ACTION SCH ×3 (08:05→23:38)
[2019-06-02] MEDS: guaiFENesin 600 MG TABCR PO SCH ×2 (08:06→20:20)
[2019-06-02] MEDS: METOPROLOL SUCC 50MG EXT REL TAB PO SCH (08:06)
[2019-06-02] MEDS: DOCUSATE SODIUM 100 MG CAP PO SCH ×2 (08:06→20:20)
[2019-06-02] MEDS: FOLIC ACID 1 MG TAB PO SCH (08:07)
[2019-06-02] MEDS: CHOLECALCIFEROL 1,000 UNITS TAB PO SCH (08:07)
[2019-06-02] MEDS: MONTELUKAST SODIUM 10 MG TABLET PO SCH (08:07)
[2019-06-02] MEDS: CYANOCOBALAMIN 1000 MCG/ML VIAL IM SCH (08:08)
[2019-06-02] MEDS: APIXABAN 2.5 MG TAB PO SCH ×2 (08:08→20:20)
[2019-06-02] MEDS: POLYETHYLENE (MIRALAX) 17 GM PACK PO SCH (08:10)
[2019-06-02] MEDS ORDERED: FUROSEMIDE 20 MG TAB PO SCH (09:00)
[2019-06-02] MEDS: ACETAMINOPHEN 325 MG TAB PO PRN (09:48)
--- NOTE | 2019-06-02 11:31 | Urology Progress Note ---
Date of Service June 02, 2019 Assessment & Plan (1) UTI (urinary tract infection): 84yo M with multiple comorbidities, s/p laser litho and pyelonephritis, readmitted with afib with RV and nitrite positive UA awaiting final uc&S, growing >100,000 gram neg bacilli Unfortunately, there has not been a return of spontaneous void s/p tong d/c'd yesterday. Requiring straight cath q6-8h. Pt currently not on alpha blockers, appears he had experienced dizziness with tamsulosin in the past. Will try pt on alfuzosin tonight, watch for lightheadedness/dizziness. If no spontaneous voiding by tomorrow, plan to replace tong catheter in AM with close outpatient followup with Dr. Irizarry. Pt is agreeable to plan of care. We will continue to monitor with primary service. Subjective 84yo M with multiple comorbidities, s/p laser litho and pyelonephritis, readmitted with afib with RV and nitrite positive UA Catheter removed yesterday per order, no return of spontaneous voiding as of yet. He has required q6h straight cath per nursing, without difficulty. He states he tolerates this fine. Per patient, he has been cleared by cardiology to go home. Awaiting final UC&S results. No further issues or concerns today. Review of Systems Review of Systems: Constitutional: Denies fever, chills, sweats, malaise Eyes: Denies problem reported ENMT: Denies dizziness Resp: Denies cough, Denies shortness of breath CV: Denies JVD GI: Denies nausea/vomiting : Denies suprapubic or flank pain, dysuria, urgency, frequency, hematuria MS: Denies swelling, stiffness Integ: Denies rash, erythema Neuro: Denies falls, weakness Psych: Denies behavior change Endo: Denies polyphagia, polydipsia Heme: Denies easy bleeding Physical Exam Constitutional: no acute distress and not ill appearing Eyes: no nystagmus ENMT: Ears: no hearing impairment Neck: trachea midline Respiratory: no respiratory distress, does not use accessory muscles and no cough Cardiovascular: Vessels: no JVD Chest (Breasts): Chest: normal inspection of chest Gastrointestinal (Abdomen): Inspection/Auscultation: abdomen not distended and no abdominal edema Percussion/Palpation: abdomen soft; abdomen nontender Musculoskeletal: Head/Neck/Chest: normocephalic and head atraumatic Skin: no rashes, warm and dry Neurologic: awake; not confused and not obtunded Psychiatric: Orientation: alert and oriented x 3 Eye Contact: good eye contact Affect: no depressed affect Genitourinary: bladder normal to inspection; no CVA tenderness Lymphatic: no lymphadenopathy and no lymphedema Results & Data Vital Signs (Past 12 Hours) Vital Signs Temp Pulse Pulse Resp BP Pulse Ox 06/02/19 10:44 101 H 16 96 06/02/19 07:25 99 H 06/02/19 07:10 36.6 C 109 H 16 132/81 100 06/02/19 06:59 102 H 18 98 06/02/19 03:31 36.3 C L 93 H 16 150/74 H 97 (1) UTI (urinary tract infection) Hematuria presence: with hematuria Urinary tract infection type: site unspecified Qualified Code(s): N39.0 - Urinary tract infection, site not specified; R31.9 - Hematuria, unspecified
[2019-06-02] MEDS ORDERED: AMIODARONE IV BOLUS / DRIP IV STA (13:05)
[2019-06-02] MEDS ORDERED: AMIODARONE / D5W 150 MG/100 ML BAG IV STA (13:05)
[2019-06-02] MEDS ORDERED: AMIODARONE / D5W 360 MG/200 ML BAG IV SCH (13:15)
--- NOTE | 2019-06-02 15:11 | Cardiology Progress Note ---
Date of Service June 02, 2019 Assessment & Plan (1) Atrial fibrillation with RVR: He remains in atrial fibrillation now, having gone into it shortly after arrival in the emergency room. I had suspected that he had intermittent atrial fibrillation at home and this would be paroxysmal but so far he has not returned to sinus rhythm. Although he is asymptomatic his heart rate is somewhat fast as blood pressure is borderline and I would prefer to get him back in sinus rhythm if possible. I discussed this with him and he is agreeable. I am going to try medical therapy first, I will start intravenous amiodarone today, if that is unsuccessful I will arrange cardioversion for tomorrow which is tentatively scheduled for 7:45 AM. If it is successful I will probably not continue amiodarone over the long run, hopefully getting him back into sinus rhythm will allow him to maintain it. He needs to continue anticoagulation and he has been properly anticoagulated since before he went into atrial fibrillation this admission although he was off of anticoagulation for a time before that with his urologic procedures but I believe was in sinus rhythm continuously at the time. Subjective He is feeling well today. He has no palpitations and no awareness of his heart rhythm, which remains atrial fibrillation. He is feeling better in general. Physical Exam Physical Exam: Constitutional: Alert, cooperative and in no distress. Pulmonary: Clear to auscultation bilaterally. Cardiac: Irregular rhythm with no murmur, gallop or rub. Abdomen: Soft, nontender with normal bowel sounds. Extremities: No edema. Skin: No rash, ecchymoses or petechiae. Results & Data Vital Signs (Past 12 Hours) Vital Signs Temp Pulse Pulse Resp BP Pulse Ox 06/02/19 11:10 36.5 C 98 H 16 112/71 99 06/02/19 10:44 101 H 16 96 06/02/19 07:25 99 H 06/02/19 07:10 36.6 C 109 H 16 132/81 100 06/02/19 06:59 102 H 18 98 06/02/19 03:31 36.3 C L 93 H 16 150/74 H 97 Diagnostic Findings Telemetry: Atrial fibrillation, heart rate well controlled at night, remains over 103 most of the day. PG Care Time/CCT Total # of Minutes Spent Total Time Spent with Patient: Total time spent is greater than 50% in coordination of care (as documented) at patient's floor/unit and/or counseling patient:
--- NOTE | 2019-06-02 19:00 | Hospitalist Progress Note ---
Date of Service June 02, 2019 Assessment & Plan (1) Atrial fibrillation with RVR: Atrial fibrillation with RVR-started in ER upon admission In the past has spontaneously converted Initially, systolic blood pressure in the upper 90s-now improved with IVF hydration Remains in rapid atrial fibrillation now for 3 days Echocardiogram in 01/22 showed EF 55%. Patient was intravascularly dry on admission. with COPD exacerbation and UTI Patient was given Lopressor 5 mg IV x2 by the ED with minimal effect. Was given IVFs and Albumin 25 g IV x2 to help improve blood pressure. Digoxin 0.25 mg IV x1 given on admission but not continued Holding lisinopril. Continue apixaban 2.5 mg twice daily. - continue Metoprolol succinate 50 mg p.o. every morning Consult cardiology appreciated-starting IV amiodarone and if does not chemically convert by tomorrow morning, will perform DCCV -cont tele monitoring (2) COPD exacerbation: Significantly improved with IV Solu Medrol and scheduled nebs -continue Duonebs 4 times daily and every 2 hours as needed. -Taper down Solu-Medrol to 40 mg IV every 12 hours. -cont supplemental O2 to keep POx>90% (3) UTI (urinary tract infection): UTI due to indwelling Buckley catheter/CAUTI Most recent infections have been with Morganella and Enterococcus faecalis, both of which have been sensitive to levofloxacin. Urine culture with gram-negative rods, awaiting final ID and sensitivity -continue levofloxacin IV every 24 hours, which will also cover possible lung organisms. Buckley catheter removed on 06/01 and requiring straight cath is not able to void on own (4) Chronic indwelling Buckley catheter: [facility] h/u large UPJ stones and pyelonephritis, chronic Buckley for several months -Urol consulted and removed Buckley 06/01 Still not voiding spontaneously, requiring straight catheterization since removal of Buckley catheter -Has not tolerated tamsulosin in the past -Urology has started Uroxatrol 10 mg nightly If still requiring straight cath in the morning, urology recommends placement of Buckley catheter and reassessment as an outpatient by urology (5) Anemia: Hgb mildly low in 11 range with macrocytosis on admission Hgb dropped to 9.6 and now back up slightly to 9.9, likely somewhat dilutional from IV fluids received Folate borderline low at 6, B12 low at 196, TSH low but FT4 normal -started B12 IM 1000mcg daily x 3 days then convert to po B12 -started folate 1mg po qday -repeat TSH in 4 weeks when not acutely ill, no thyroid nodules on exam -continue ELiquis, no gross bleeding -check Hemoccult-not collected so far -follow CBC in AM (6) BPH (benign prostatic hyperplasia): as above, Buckley removed and not voiding spontaneously -Starting Uroxatrol (7) Chronic respiratory failure with hypoxia: continue on supplemental O2 (8) DVT prophylaxis: Clau Dispo-remain on PCU, possibly discharged home tomorrow after cardioversion Subjective Patient feeling well today. He did require straight cath again yesterday and today. Says his dyspnea is back to baseline, no chest pain or abdominal pain. He did move his bowels once today so far and feels like he has to move them again. I discussed his case with the urology nurse practitioner as well as the limb driver. Telemetry with atrial fibrillation with rates in the 90s to 110s Review of Systems Review of Systems: All systems reviewed & are unremarkable except as noted in HPI & below Physical Exam Constitutional: + thin; no acute distress Eyes: + anicteric sclerae Neck: trachea midline, no thyromegaly Thyroid: normal thyroid; no thyroid mass and no thyroid nodules Respiratory: normal respiratory effort Auscultation: + diminished lung sounds (Throughout); no crackles, no rhonchi and no wheezes Cardiovascular: Rate/Rhythm: + tachycardic and + irregularly irregular Heart Sounds: no murmur Extremities: no edema Gastrointestinal (Abdomen): normal bowel sounds, soft, nontender, no hepatosplenomegaly Musculoskeletal: Extremities: extremities normal to inspection; no cyanosis and no clubbing Skin: no rashes, warm and dry Neurologic: moves all extremities and awake; no focal motor deficits Psychiatric: A+Ox3, euthymic affect Results & Data Vital Signs (Past 12 Hours) Vital Signs Temp Pulse Pulse Resp BP BP Pulse Ox 06/02/19 15:48 93 H 06/02/19 15:19 36.6 C 89 22 103/68 96 06/02/19 15:17 64 16 98 06/02/19 11:10 36.5 C 98 H 16 112/71 99 06/02/19 10:44 101 H 16 96 06/02/19 07:25 99 H 06/02/19 07:10 36.6 C 109 H 16 132/81 100 06/02/19 06:59 102 H 18 98 Laboratory Results 06/02/19 06/02/19 Range/Units 05:37 05:37 WBC 15.16 H (4.8-10.8) K/uL RBC 3.03 L (4.7-6.1) M/uL Hgb 9.9 L (14.0-18.0) g/dL Hct 29.8 L (42-52) % MCV 98.3 (80-100) fL MCH 32.7 (25-34) pg MCHC 33.2 (32-36) g/dL RDW Std Deviation 52.9 H (36.4-46.3) fL RDW Coeff of Ashley 14.7 H (11.5-14.5) % Plt Count 278 (130-400) K/uL MPV 9.3 (7.4-10.4) fL Immature Gran % (Auto) 0.5 % Neut % (Auto) 92.7 % Lymph % (Auto) 3.1 % Maries % (Auto) 3.7 % Eos % (Auto) 0.0 % Baso % (Auto) 0.0 % Immature Gran # (Auto) 0.08 H (0.00-0.02) K/uL Neut # (Auto) 14.05 H (1.4-6.5) K/uL Lymph # (Auto) 0.47 L (1.2-3.4) K/uL Maries # (Auto) 0.56 (0.11-0.59) K/uL Eos # (Auto) 0.00 (0-0.5) K/uL Baso # (Auto) 0.00 (0-0.2) K/uL Sodium 139 (136-145) mmol/L Potassium 4.9 (3.5-5.1) mmol/L Chloride 104 (98-107) mmol/L Carbon Dioxide 31 (21-32) mmol/L Anion Gap 4.0 (3-11) BUN 41 H (7-18) mg/dl Creatinine 1.12 (0.6-1.4) mg/dl Est Cr Clr Drug Dosing 38.6 ml/min Est GFR ( Amer) 69.5 Est GFR (Non-Af Amer) 60.0 BUN/Creatinine Ratio 36.5 H (10-20) Glucose 117 H (70-99) mg/dl Calcium 9.3 (8.5-10.1) mg/dl PG Care Time/CCT Total # of Minutes Spent Total Time Spent with Patient: Total time spent is greater than 50% in coordination of care (as documented) at patient's floor/unit and/or counseling patient: (1) UTI (urinary tract infection) Hematuria presence: with hematuria Urinary tract infection type: site unspecified Qualified Code(s): N39.0 - Urinary tract infection, site not specified; R31.9 - Hematuria, unspecified (2) BPH (benign prostatic hyperplasia) Lower urinary tract symptom presence: symptoms present Lower urinary tract symptom detail: urinary retention Qualified Code(s): N40.1 - Benign prostatic hyperplasia with lower urinary tract symptoms; R33.8 - Other retention of urine
[2019-06-02] MEDS: AMIODARONE / D5W 360 MG/200 ML BAG IV SCH (19:05)
[2019-06-02] MEDS: OXYCODONE HCL IR 5 MG TAB (IMMEDIATE RELEASE) PO SCH (20:19)
[2019-06-02] MEDS: PRAVASTATIN SOD 20 MG TAB PO SCH (20:20)
[2019-06-02] MEDS ORDERED: ALFUZOSIN HCL 10 MG TAB PO SCH (21:00)
[2019-06-02] MEDS: BENZONATATE 100 MG CAPSULE PO PRN (22:40)
[2019-06-03 06:02] LABS: Basophils # (auto) 0.01 K/uL (0-0.2); Basophils % (auto) 0.1 %; Hemoglobin 9.8 g/dL (14.0-18.0); Immature Granulocytes # (auto) 0.09 K/uL (0.00-0.02); Immature Granulocytes % (auto) 0.8 %; Lymphocytes # (auto) 0.49 K/uL (1.2-3.4); Lymphocytes % (auto) 4.3 %; Mean Corpuscular Hemoglobin 32.2 pg (25-34); Mean Corpuscular Hgb Conc 32.7 g/dL (32-36); Mean Corpuscular Volume 98.7 fL (80-100); Mean Platelet Volume 9.3 fL (7.4-10.4); Monocytes # (auto) 0.62 K/uL (0.11-0.59); Monocytes % (auto) 5.5 %; Neutrophils % (auto) 89.3 %; Platelet Count 239 K/uL (130-400); RDW Coefficient of Variation 14.7 % (11.5-14.5); RDW Standard Deviation 52.8 fL (36.4-46.3); Red Blood Count 3.04 M/uL (4.7-6.1); White Blood Count 11.31 K/uL (4.8-10.8)
[2019-06-03 06:36] LABS: BUN Creatinine Ratio 37.3 (10-20); Creatinine Clr Calc Pharmacy 40.4 ml/min; Est GFR (African American) 73.5; Est GFR (Non-African American) 63.4; Potassium 4.6 mmol/L (3.5-5.1)
[2019-06-03] MEDS ORDERED: PROPOFOL IV EMULSION 10 MG/ML 20 ML VIAL IV ONE (06:50)
[2019-06-03] MEDS: AMIODARONE / D5W 360 MG/200 ML BAG IV SCH (07:14)
[2019-06-03] MEDS: ALBUT/IPRATROP 3MG/0.5MG NEB 3 ML VIAL NEB SCH ×3 (07:14→15:29)
[2019-06-03] MEDS: DOCUSATE SODIUM 100 MG CAP PO SCH (08:02)
[2019-06-03] MEDS: DUTASTERIDE ~ ORDER AWAITING ACTION SCH ×2 (08:02→14:48)
[2019-06-03] MEDS: APIXABAN 2.5 MG TAB PO SCH (08:03)
[2019-06-03] MEDS: LEVOFLOXACIN/D5W 250 MG/50 ML BAG IV SCH (08:03)
[2019-06-03] MEDS: FOLIC ACID 1 MG TAB PO SCH (08:03)
[2019-06-03] MEDS: methylPREDNISolone 40 MG in SYRINGE 0 ML IV SCH (08:04)
[2019-06-03] MEDS: POLYETHYLENE (MIRALAX) 17 GM PACK PO SCH (08:04)
[2019-06-03] MEDS: guaiFENesin 600 MG TABCR PO SCH (08:04)
[2019-06-03] MEDS: MONTELUKAST SODIUM 10 MG TABLET PO SCH (08:04)
[2019-06-03] MEDS: CHOLECALCIFEROL 1,000 UNITS TAB PO SCH (08:05)
[2019-06-03] MEDS: METOPROLOL SUCC 50MG EXT REL TAB PO SCH (08:05)
[2019-06-03] MEDS: CYANOCOBALAMIN 1000 MCG/ML VIAL IM SCH (08:06)
--- NOTE | 2019-06-03 08:49 | Cardiology Progress Note ---
Date of Service June 03, 2019 Assessment & Plan (1) Atrial fibrillation with RVR: He is now in sinus rhythm, he has converted from atrial fibrillation on amiodarone at around 11 PM last evening. I am going to discontinue his amiodarone and see whether he can maintain sinus rhythm on no medications. He needs to remain on anticoagulation. (2) Anticoagulant long-term use: He is doing well on Eliquis, he needs to continue it currently. Subjective He has converted to sinus rhythm overnight on amiodarone. This morning he feels well, although he is not aware of his atrial arrhythmia when asked if he feels different this morning he says he might feel little less nervous, perhaps he was somewhat aware of his arrhythmia. He has no complaints today and would like to go home. Physical Exam Physical Exam: Constitutional: Alert, cooperative and in no distress. Pulmonary: Clear to auscultation bilaterally. Cardiac: Regular rhythm with no murmur, gallop or rub. Abdomen: Soft, nontender with normal bowel sounds. Extremities: No edema. Skin: No rash, ecchymoses or petechiae. Results & Data Vital Signs (Past 12 Hours) Vital Signs Temp Pulse Resp BP BP Pulse Ox 06/03/19 07:36 36.6 C 79 19 161/81 H 99 06/03/19 07:14 91 H 18 98 06/03/19 04:02 36.4 C L 89 20 137/79 96 06/02/19 23:11 36.6 C 97 H 20 113/64 96 Diagnostic Findings Telemetry: Conversion to sinus rhythm at around 11 PM yesterday. He has remained in sinus rhythm since with a controlled heart rate. PG Care Time/CCT Total # of Minutes Spent Total Time Spent with Patient: Total time spent is greater than 50% in coordination of care (as documented) at patient's floor/unit and/or counseling patient:
--- NOTE | 2019-06-03 10:16 | Discharge Summary ---
Date of Service June 03, 2019 Admission HPI Per Admitting Provider The patient is a 84-year-old male with a past medical history including atrial fibrillation, hypertension, CHF, COPD, hyperlipidemia and BPH, who presents to the emergency department with complaints of shortness of breath, difficulty with urination suggestive of his previous UTIs, and difficulty with oral intake. He has not had any recent travels or sick exposures. When seen by EMS, he was given a DuoNeb and was placed on CPAP and brought to the emergency department for assessment. Presently in the emergency room, he is on 5 L nasal cannula oxygen. He also does have a chronic indwelling Buckley catheter, which is draining thick dark-colored urine. Principal Diagnosis Rapid atrial fibrillation, Catheter-associated UTI, COPD Exacerbation Discharge Exam Constitutional + thin; no acute distress Eyes + anicteric sclerae Neck trachea midline, no thyromegaly Thyroid: normal thyroid; no thyroid mass and no thyroid nodules Respiratory normal respiratory effort Auscultation: + diminished lung sounds (Throughout); no crackles and no rhonchi Cardiovascular RRR, no murmur, no edema Gastrointestinal (Abdomen) normal bowel sounds, soft, nontender, no hepatosplenomegaly Musculoskeletal Extremities: extremities normal to inspection; no cyanosis and no clubbing Skin no rashes, warm and dry Neurologic moves all extremities and awake; no focal motor deficits Psychiatric A+Ox3, euthymic affect Discharge Data Allergies Allergy/AdvReac Type Severity Reaction Status Date / Time tamsulosin Allergy Unknown Unknown Verified 06/09/19 12:06 cilostazol AdvReac Unknown dizziness, Verified 06/09/19 12:06 palpitations diltiazem AdvReac Unknown dizziness, Verified 06/09/19 12:06 palpitations simvastatin AdvReac Unknown dizziness Verified 06/09/19 12:06 Consultations 05/31/19 05:20 ED Decision to Admit Stat 05/31/19 09:06 Consult Cardiology Routine Consult Case Management - Discharge Planning Routine 05/31/19 13:53 Consult Urology Routine Procedures Performed Operation Date: 06/03/19 07:45 <No data on this case meets the specified criteria> Ordered Studies CXR KUB Hospital Course (1) Atrial fibrillation with RVR: Atrial fibrillation with RVR-started in ER upon admission In the past has spontaneously converted Initially, systolic blood pressure in the upper 90s-then improved with IVF hydration Remained in rapid atrial fibrillation for 3 days and then had DCCV on day of discharge back to [facility] Echocardiogram in 01/22 showed EF 55%. Patient was intravascularly dry on admission. with COPD exacerbation and UTI Patient was given Lopressor 5 mg IV x2 by the ED with minimal effect. Was given IVFs and Albumin 25 g IV x2 to help improve blood pressure. Digoxin 0.25 mg IV x1 given on admission but not continued Held lisinopril. Continue apixaban 2.5 mg twice daily. - continue Metoprolol succinate 50 mg p.o. every morning Consult cardiology appreciated-f/u as outpt (2) COPD exacerbation: Significantly improved with IV Solu Medrol and scheduled nebs -continue Duonebs 4 times daily and every 2 hours as needed. -convert to po prednisone upon dc and taper down -cont supplemental O2 to keep POx>90% (3) UTI (urinary tract infection): UTI due to indwelling Buckley catheter/CAUTI Most recent infections have been with Morganella and Enterococcus faecalis, both of which have been sensitive to levofloxacin. Urine culture with gram-negative rods, awaiting final ID and sensitivity -received levofloxacin IV every 24 hours, which will also cover possible lung organisms. -converted to po abx upon dc Buckley catheter removed on 06/01 and was requiring straight cath as is not able to void on own--> Buckley replaced prior to discharge -f/u with Urology as outpt (4) Chronic indwelling Buckley catheter: [facility] h/u large UPJ stones and pyelonephritis, chronic Buckley for several months -Urol consulted and removed Buckley 06/01 Was not voiding spontaneously, requiring straight catheterization since removal of Buckley catheter--> Buckley replaced prior to dc -Has not tolerated tamsulosin in the past -Urology has started Uroxatrol 10 mg nightly and then had significant orthostasis--> discontinued -f/u as an outpatient by urology (5) Anemia: Hgb mildly low in 11 range with macrocytosis on admission Hgb dropped to 9.6 and now stable at 9.8, likely somewhat dilutional from IV fluids received Folate borderline low at 6, B12 low at 196, TSH low but FT4 normal -started B12 IM 1000mcg daily x 3 days then convert to po B12 upon dc -started folate 1mg po qday -repeat TSH in 4 weeks when not acutely ill, no thyroid nodules on exam -continue ELiquis, no gross bleeding -check Hemoccult-not collected so far-could do as outpt -follow CBC as outpt (6) BPH (benign prostatic hyperplasia): as above, Buckley removed and not voiding spontaneously -cannot tolerate alpha blockers (7) Chronic respiratory failure with hypoxia: continue on supplemental O2 (8) Orthostasis: secondary to alpha blockers dc alpha blockers -advised to squeeze calf muscles, don't stand up too quickly, etc. (9) DVT prophylaxis: Eliquis Dispo-dc to home Total Time Total Time Spent Total Time Spent (In Minutes): >30 min Total Time Includes: Examination of the Patient, Discharge Planning, Medication Reconciliation and Communication With Other Providers (Cardiology) Discharge Plan Discharge Items Patient Disposition: Home - Home Health Services Reason For Visit: ATRIAL FIB WITH RVR Condition on Discharge: Good Activity: As commented below Lifting: Gradually increase as tolerated Bathing: No limitations Exercise/Sports: Gradually increase as tolerated Weightbearing: Full weightbearing Weightbearing Comment: with walker Non-emergency contact: Primary Care Provider and Cyber Intelligence Analyst Follow-up/Referrals: Marquis Irizarry MD [Physician] - (Please, follow up at [facility] Office with Dr. Irizarry. *The nurse from this office will call you with the appointment information. If you have any questions, call the office at [phone].) Guerrero Morse MD [Primary Care Provider] - 06/09/19 12:00 pm (Please, follow up at Dr. Morse's office with his associate, Fatmata BECERRIL, on FridayJune 09 at 12:00 pm. *If you need to change this appointment, call the office at [phone].) Derrek Melton MD [Physician] - 06/15/19 12:00 pm (Please, follow up at [facility] Cardiology Office with Dr. Melton on FridayJune 15 at 12:00 pm. *The office is located in [address] [facility]. This is the big building next to this [facility]. If you need to change this appointment, call the office at [phone].) Addtl Delivery Lead Provider Instructions: Please finish out the prednisone taper as prescribed and then return to your usual prednisone 10mg once daily. Your heart rhythm is back to a normal rhythm. Please follow up with the Cyber Intelligence Analyst within 2 weeks. Please finish out your antibiotics for your UTI. Your Buckley catheter was replaced after you were not able to void on your own. You will need to follow up with Urology in 1 week. You were started on a new drug for your prostate called alfuzosin to shrink the prostate. This medication unfortunately made your blood pressure drop low with standing so it was STOPPED. Please follow up with your PCP within 1-2 weeks. Pending Studies at Discharge: No Stand-Alone Forms: My [facility] Medications and DC Order Prescriptions: New polyethylene glycol 3350 [Miralax] 17 gram Powder In Packet 17 g PO DAILY Qty: 30 RF: 0 cyanocobalamin (vitamin B-12) 1,000 mcg capsule 1,000 mcg PO DAILY Qty: 30 RF: 0 Continued benzonatate 100 mg capsule 100 mg PO QPM PRN (Reason: Cough) Qty: 30 RF: 5 tiotropium bromide 18 mcg capsule, w/inhalation device 1 cap Inhalation DAILY Qty: 30 RF: 5 cholecalciferol (vitamin D3) [Vitamin D3] 2,000 unit capsule 2,000 units PO DAILY Qty: 30 RF: 0 levalbuterol tartrate 45 mcg/actuation HFA aerosol inhaler 1 puffs INH Q6H PRN (Reason: shortness of breath) RF: 0 Dulera 200-5 mcg/actuation Hfa Aerosol Inhaler 1 puff INHALATION Q12H RF: 0 furosemide 40 mg tablet 20 mg PO Q2D RF: 0 potassium chloride [Klor-Con M20] 20 mEq tablet,ER particles/crystals 20 meq PO Q2D RF: 0 montelukast 10 mg tablet 10 mg PO QAM RF: 0 Eliquis 2.5 mg tablet 2.5 mg PO BID RF: 0 acetaminophen 325 mg tablet 650 mg PO Q6H PRN (Reason: Fever Or Pain) RF: 0 lisinopril 20 mg tablet 20 mg PO DAILY RF: 0 fluticasone propionate 50 mcg/actuation spray,suspension 2 sprays INTNAS DAILY RF: 0 oxycodone 5 mg tablet 5 mg PO HS RF: 0 pravastatin 20 mg tablet 20 mg PO QPM RF: 0 albuterol sulfate 90 mcg/actuation HFA aerosol inhaler 2 puff inhalation Q4H PRN (Reason: Shortness Of Breath Or Wheezing) RF: 0 metoprolol succinate 50 mg tablet extended release 24 hr 50 mg PO QAM RF: 0 dutasteride 0.5 mg capsule 0.5 mg PO QAM RF: 0 guaifenesin [Mucinex] 600 mg tablet extended release 12hr 1,200 mg PO BID RF: 0 Changed prednisone 10 mg tablet 60 mg PO DAILY Qty: 42 RF: 0 docusate sodium [Stool Softener] 100 mg Tablet 100 mg PO BID Qty: 0 RF: 0 No Action ipratropium-albuterol 0.5 mg-3 mg(2.5 mg base)/3 mL solution for nebulization 3 ml Inhalation TID Qty: 180 RF: 5 folic acid 1 mg tablet 1 mg PO QAM Qty: 30 RF: 5 Discharge Orders: Discharge Order (Routine); Ordered 06/03/19 Ordered By: Sheila Miller Admission Data Admit Date/Time: 05/31/19 06:07 Attending Provider: Sheila Miller Admit Provider: Ashvin Arndt Primary Care Provider: Guerrero Morse Other Providers: Derrek Melton ; Ashvin Arndt ; Marquis Irizarry Other Interventions: Discharge Summary Assessment (RN) Last Done: 06/03/19 15:24 DC Date/Time DO NOT enter until pt leaves facility: 06/03/19 15:57
--- NOTE | 2019-06-03 10:43 | Urology Progress Note ---
Date of Service June 03, 2019 Assessment & Plan (1) UTI (urinary tract infection): 84yo M with multiple comorbidities, s/p laser litho and pyelonephritis, readmitted with afib with RV and E.coli UTI> Final UC&S growing E.coli, sensitive to levaquin. Recommend total of 10day course. Continue alfuzosin and dutasteride. Due to lack of return of spontaneous voiding, okay to replace indwelling catheter until evaluated as outpatient in 2-[address] Irizarry. Thank you for allowing us to participate in the inpatient care of Mr. Garcia. Subjective 84yo M with multiple comorbidities, s/p laser litho and pyelonephritis, readmit nestor with afib with RV and nitrite positive UA Unfortunately, pt has had more complications with his heart rhythm, cardiology and hospital notes reviewed. He has not had spontaneous return of voiding, requiring straight cath ATC. Granddaughter at bedside today. Pt remains in good spirits, no further concerns today. Review of Systems Review of Systems: All systems reviewed & are unremarkable except as noted in HPI & below Physical Exam Constitutional: + frail appearing; no acute distress and not ill appearing Eyes: no nystagmus ENMT: Ears: no hearing impairment Neck: trachea midline Respiratory: no respiratory distress and no cough Cardiovascular: Vessels: no JVD Chest (Breasts): Chest: normal inspection of chest Gastrointestinal (Abdomen): Inspection/Auscultation: abdomen not distended and no abdominal edema Percussion/Palpation: abdomen soft; abdomen nontender Musculoskeletal: Head/Neck/Chest: normocephalic and head atraumatic Skin: no rashes, warm and dry Neurologic: awake; not confused and not obtunded Psychiatric: Orientation: alert and oriented x 3 Eye Contact: good eye contact Affect: no depressed affect Genitourinary: bladder normal to inspection; no CVA tenderness Lymphatic: no lymphadenopathy and no lymphedema Results & Data Vital Signs (Past 12 Hours) Vital Signs Temp Pulse Resp BP BP Pulse Ox 06/03/19 07:36 36.6 C 79 19 161/81 H 99 06/03/19 07:14 91 H 18 98 06/03/19 04:02 36.4 C L 89 20 137/79 96 06/02/19 23:11 36.6 C 97 H 20 113/64 96 (1) UTI (urinary tract infection) Hematuria presence: with hematuria Urinary tract infection type: site unspecified Qualified Code(s): N39.0 - Urinary tract infection, site not specified; R31.9 - Hematuria, unspecified
[2019-06-03] MEDS: ACETAMINOPHEN 325 MG TAB PO PRN (12:22)
[2019-06-03] MEDS: ALUMINUM/MAGNESIUM SUSP 30 ML UDC PO PRN (14:41)
== END 2019-06-03 15:57 | disposition home health service (06) | DRG 699 ==
LOC: ED 03:35 → SUATTDRO 06:07 → 2S 06:07
DX: I48.0 Paroxysmal atrial fibrillation; Z79.01 Long term (current) use of anticoagulants; E78.5 Hyperlipidemia, unspecified; Y84.6 Urinary catheterization as the cause of abnormal reaction of the patient, or of later complication, without mention of misadventure at the time of the procedure; N39.0 Urinary tract infection, site not specified; N18.3 Chronic kidney disease, stage 3 (moderate); I13.10 Hypertensive heart and chronic kidney disease without heart failure, with stage 1 through stage 4 chronic kidney disease, or unspecified chronic kidney disease; J44.1 Chronic obstructive pulmonary disease with (acute) exacerbation; Y92.009 Unspecified place in unspecified non-institutional (private) residence as the place of occurrence of the external cause; T83.511A Infection and inflammatory reaction due to indwelling urethral catheter, initial encounter; I50.9 Heart failure, unspecified; N40.0 Benign prostatic hyperplasia without lower urinary tract symptoms

== ENCOUNTER 2019-07-01 13:06 | Inpatient (IN) ==
[2019-07-01] MEDS ORDERED: SODIUM CHLORIDE 0.9% 1000ML 500 ML IV ONE (13:59)
[2019-07-01 14:11] LABS: Basophils # (auto) 0.03 K/uL (0-0.2); Basophils % (auto) 0.2 %; Eosinophils # (auto) 0.02 K/uL (0-0.5); Eosinophils % (auto) 0.1 %; Hematocrit (blood only) 36.3 % (42-52); Hemoglobin 11.9 g/dL (14.0-18.0); Immature Granulocytes # (auto) 0.58 K/uL (0.00-0.02); Immature Granulocytes % (auto) 3.8 %; Lymphocytes # (auto) 1.14 K/uL (1.2-3.4); Lymphocytes % (auto) 7.4 %; Mean Corpuscular Hemoglobin 33.2 pg (25-34); Mean Corpuscular Hgb Conc 32.8 g/dL (32-36); Mean Corpuscular Volume 101.4 fL (80-100); Mean Platelet Volume 10.3 fL (7.4-10.4); Monocytes # (auto) 0.89 K/uL (0.11-0.59); Monocytes % (auto) 5.8 %; Neutrophils # (auto) 12.71 K/uL (1.4-6.5); Neutrophils % (auto) 82.7 %; Platelet Count 396 K/uL (130-400); RDW Coefficient of Variation 15.1 % (11.5-14.5); RDW Standard Deviation 55.9 fL (36.4-46.3); Red Blood Count 3.58 M/uL (4.7-6.1); White Blood Count 15.37 K/uL (4.8-10.8)
--- NOTE | 2019-07-01 14:15 | XRay Report ---
XR chest 1V portable CLINICAL HISTORY: 84 years-old Male presenting with Sepsis. TECHNIQUE: Portable upright AP view of the chest was obtained. COMPARISON: 05/31/2019. FINDINGS: Atherosclerosis of the aortic arch. Cardiac silhouette borderline enlarged. Heterogeneity lung parenc hyma. Mildly low lung volumes. Partial obscuration of the left hemidiaphragm worsened from prior. Kimi pected underlying left pleural effusion. No pneumothorax. Degenerative changes of the thoracic spine. Upper abdomen normal. IMPRESSION: 1. Increased left basilar opacity likely effusion and atelectasis. Underlying infection is not exclu ded. 2. Heterogeneous lung parenchyma likely relates to underlying chronic lung disease. 3. Borderline cardiomegaly. No evidence of volume overload. Electronically signed by: Gera Philip M.D. 07/01/2019 2:14 PM
[2019-07-01 14:18] LABS: Albumin Level 3.1 gm/dl (3.4-5.0); BUN Creatinine Ratio 18.8 (10-20); Blood Urea Nitrogen 22 mg/dl (7-18); Calcium 9.6 mg/dl (8.5-10.1); Carbon Dioxide 27 mmol/L (21-32); Chloride 106 mmol/L (98-107); Est GFR (African American) 65.3; Est GFR (Non-African American) 56.3; Glucose 135 mg/dl (70-99); Potassium 4.5 mmol/L (3.5-5.1); Sodium 141 mmol/L (136-145)
[2019-07-01 14:23] LABS: Alanine Aminotransferase 15 U/L (12-78); Albumin Globulin Ratio 0.9 (0.9-2); Alkaline Phosphatase 126 U/L (45-117); Aspartate Aminotransferase 9 U/L (15-37); Bilirubin,Total 0.4 mg/dl (0.2-1); Globulin 3.3 gm/dl (2.5-4.0); INR 1.1 (0.9-1.1); NT Pro B Type Natriuretic Pept 1310 pg/ml (0-1800); Partial Thromboplastin Time 26.2 Seconds (21.0-31.0); Prothrombin Time 10.8 Seconds (9.0-12.0); Total Protein 6.4 gm/dl (6.4-8.2); Troponin I < 0.015 ng/ml (0-0.045)
--- NOTE | 2019-07-01 14:35 | Emergency Department Note ---
Entered by Gagan López acting as a scribe for Leoncio Smith MD History of Present Illness General Chief complaint: Dizziness Time Seen by Provider: 07/01/19 13:55 Source: patient and family Limitations: no limitations History of Present Illness Provider complaint: Dizziness Onset (ago): day(s) 1 Location: head Radiation: non-radiation Relieved By: + none Exacerbated By: + other (Standing) Associated symptoms: + cough (constant), + weakness and + other (+dizziness); no fever/chills Treatments prior to arrival: none The patient is an 84 year old male who presents to the Emergency Department with complaints of dizziness that began this morning. Per the patients family, his home health nurse was giving him PT, when he stood up he was dizzy. The patients BP was low yesterday. His pulse was irregular today, the patient has Afib. The patient has a bladder catheter. He denies any blood in his urine or stool. He is on Lasix. The patient denies any fever, chills, or cough. The patient has a history of COPD and on 2L oxygen constantly. Home Medications Home Medications Medication Instructions Recorded Confirmed Type cholecalciferol (vitamin D3) 2,000 2,000 units PO DAILY #30 cap 03/15/19 07/01/19 Rx unit capsule albuterol sulfate 2 puff INHALATION Q4H PRN 03/23/19 07/01/19 History dutasteride 0.5 mg PO QAM 03/23/19 07/01/19 History guaifenesin [Mucinex] 1,200 mg PO BID 03/23/19 07/01/19 History metoprolol succinate 50 mg PO QAM 03/23/19 07/01/19 History pravastatin 20 mg PO QPM 03/23/19 07/01/19 History Dulera 1 puff INHALATION Q12H 04/13/19 07/01/19 History levalbuterol HFA 45 mcg/actuation 1 puffs INH Q6H PRN 05/08/19 07/01/19 History aerosol inhaler Eliquis 2.5 mg PO BID 05/31/19 07/01/19 History acetaminophen 650 mg PO Q6H PRN 05/31/19 07/01/19 History furosemide 20 mg PO Q2D 05/31/19 07/01/19 History potassium chloride [Klor-Con M20] 20 meq PO Q2D 05/31/19 07/01/19 History cyanocobalamin (vitamin B-12) 1,000 mcg PO DAILY #30 cap 06/03/19 07/01/19 Rx polyethylene glycol 3350 [Miralax] 17 g PO DAILY #30 ea 06/03/19 07/01/19 Rx folic acid 1 mg tablet 1 mg PO QAM #30 tab 06/09/19 07/01/19 Rx ipratropium-albuterol 0.5 mg-3 3 ml INHALATION TID #180 ml 06/16/19 07/01/19 Rx mg(2.5 mg base)/3 mL nebulization soln montelukast 10 mg tablet 10 mg PO QAM #30 tab 06/21/19 07/01/19 Rx docusate sodium 100 mg tablet 100 mg PO BID PRN tab 06/23/19 07/01/19 History fluticasone propionate 50 2 sprays INTNAS DAILY #16 gm 06/28/19 07/01/19 Rx mcg/actuation nasal spray,suspension tiotropium bromide 18 mcg capsule 1 cap INHALATION DAILY #30 puffs 06/28/19 07/01/19 Rx with inhalation device oxycodone 5 mg tablet 5 mg PO HS #30 tab 06/30/19 07/01/19 Rx benzonatate 100 mg PO DAILY 07/01/19 07/01/19 History lisinopril 20 mg tablet 20 mg PO DAILY #90 tab 07/01/19 07/01/19 Rx Allergies Allergy/AdvReac Type Severity Reaction Status Date / Time tamsulosin Allergy Unknown Unknown Verified 07/01/19 13:56 cilostazol AdvReac Unknown dizziness, Verified 07/01/19 13:56 palpitations diltiazem AdvReac Unknown dizziness, Verified 07/01/19 13:56 palpitations simvastatin AdvReac Unknown dizziness Verified 07/01/19 13:56 Past Med/Surg History Medical History Paroxysmal atrial fibrillation Dx 07/28/18 during admission for COPD exacerbation. Initially in RVR, but spontaneously converted; started on Metoprolol and Eliquis. Eliquis discontinued during admission 03/08/19 due to hematuria. 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 Advised to avoid salt. Asthma Cachexia Enlarged prostate Hematuria 2/2 renal calculi Hypertension Indwelling Venegas catheter present On home oxygen therapy 2lpm via n/c Surgical History History of appendectomy History of colonoscopy History of cystoscopy WITH STENT, during admission 03/2019 History of lithotripsy History of tonsillectomy Hx of transurethral resection of prostate Family History Mother Cancer thyroid Brother Myocardial infarction Prostate cancer Father No problems noted. Other Family history non-contributory No significant family history Social History Preferred Language: Wallisian Communication Ability: Effective Feeder Driver Required: No Beliefs That Will Affect Care: None marital status: Current Living Situation: Spouse Current Living Situation Comment: currently has home health services Other Information That Helps Us Care for You: No Feels Safe at Home: Yes Safety Concerns: Feels Safe At This Time Smoking Status: Former smoker Tobacco Type: cigarettes ; Cigarettes Per Day: 20 ; Second Hand Exposure: No ; Hx Alcohol Use: Yes Alcohol type: beer Hx Substance Use: No Review of Systems See HPI for pertinent positives & negatives. and A total of 10 systems reviewed and were otherwise negative Physical Exam Vital Signs Vital Signs - 24 hr 07/01/19 13:13 07/01/19 13:16 07/01/19 13:19 Temperature 36.9 C Temperature Source Oral Sepsis Recent Fever Within 48 Hours No Sepsis Action Taken by Nursing No Action Required Pulse Rate 117 H 112 H Pulse Rate from SpO2 Sensor Pulse Rhythm Irregular Pulse Strength Normal Respiratory Rate 15 20 26 H Respiratory Effort / Characteristics Non-Labored Spontaneous Respiratory Depth Normal Respiratory Pattern Regular Blood Pressure 78/59 L 78/59 L Blood Pressure Mean 65 65 Pulse Oximetry 97 Oxygen Delivery Method Nasal Cannula Oxygen Flow Rate 2 07/01/19 13:20 07/01/19 13:30 07/01/19 13:40 Temperature Temperature Source Sepsis Recent Fever Within 48 Hours Sepsis Action Taken by Nursing Pulse Rate 119 H 127 H 117 H Pulse Rate from SpO2 Sensor Pulse Rhythm Pulse Strength Respiratory Rate 23 27 H 17 Respiratory Effort / Characteristics Respiratory Depth Respiratory Pattern Blood Pressure Blood Pressure Mean Pulse Oximetry Oxygen Delivery Method Oxygen Flow Rate 07/01/19 13:50 07/01/19 13:59 07/01/19 14:00 Temperature Temperature Source Sepsis Recent Fever Within 48 Hours Sepsis Action Taken by Nursing Pulse Rate 109 H 112 H Pulse Rate from SpO2 Sensor Pulse Rhythm Pulse Strength Respiratory Rate 25 H 18 Respiratory Effort / Characteristics Respiratory Depth Respiratory Pattern Blood Pressure Blood Pressure Mean Pulse Oximetry 93 Oxygen Delivery Method Nasal Cannula Oxygen Flow Rate 2 07/01/19 14:10 07/01/19 14:14 07/01/19 14:16 Temperature Temperature Source Sepsis Recent Fever Within 48 Hours Sepsis Action Taken by Nursing Pulse Rate 124 H 108 H 110 H Pulse Rate from SpO2 Sensor 106 H Pulse Rhythm Pulse Strength Respiratory Rate 30 H 27 H 29 H Respiratory Effort / Characteristics Respiratory Depth Respiratory Pattern Blood Pressure 89/60 L 102/66 Blood Pressure Mean 69 78 Pulse Oximetry 93 Oxygen Delivery Method Nasal Cannula Oxygen Flow Rate 2 07/01/19 14:20 07/01/19 14:30 07/01/19 14:31 Temperature Temperature Source Sepsis Recent Fever Within 48 Hours Sepsis Action Taken by Nursing Pulse Rate 121 H 112 H 93 H Pulse Rate from SpO2 Sensor 110 H Pulse Rhythm Pulse Strength Respiratory Rate 28 H 24 23 Respiratory Effort / Characteristics Respiratory Depth Respiratory Pattern Blood Pressure 95/54 L Blood Pressure Mean 67 Pulse Oximetry 94 Oxygen Delivery Method Nasal Cannula Nasal Cannula Nasal Cannula Oxygen Flow Rate 2 2 2 07/01/19 14:40 07/01/19 14:46 07/01/19 14:50 Temperature Temperature Source Sepsis Recent Fever Within 48 Hours Sepsis Action Taken by Nursing Pulse Rate 109 H 103 H 112 H Pulse Rate from SpO2 Sensor 94 H 99 H 101 H Pulse Rhythm Pulse Strength Respiratory Rate 20 24 24 Respiratory Effort / Characteristics Respiratory Depth Respiratory Pattern Blood Pressure 100/60 Blood Pressure Mean 73 Pulse Oximetry 99 97 99 Oxygen Delivery Method Nasal Cannula Nasal Cannula Nasal Cannula Oxygen Flow Rate 2 2 2 07/01/19 15:00 07/01/19 15:01 Temperature Temperature Source Sepsis Recent Fever Within 48 Hours Sepsis Action Taken by Nursing Pulse Rate 110 H 108 H Pulse Rate from SpO2 Sensor 100 H 97 H Pulse Rhythm Pulse Strength Respiratory Rate 23 17 Respiratory Effort / Characteristics Respiratory Depth Respiratory Pattern Blood Pressure 108/61 Blood Pressure Mean 76 Pulse Oximetry 93 93 Oxygen Delivery Method Nasal Cannula Nasal Cannula Oxygen Flow Rate 2 2 General: Non-ill appearing older male in no acute distress. Baseline Oxygen HEENT: Normal cephalic atraumatic. Pupils are equal round and reactive to light. Extraocular movements are intact. Oropharynx is pink with moist mucous membranes. No swelling of the mouth lips or tongue. Neck: Supple with a midline trachea. No meningeal signs or stiffness, no JVD or bruits. No Stridor. Chest: Rhonchi in the bases bilaterally. No wheezes. Heart: regular rate and rhythm. Abdomen: Soft nontender, nondistended without rebound guarding or rigidity. Venegas catheter in place with yellow slightly cloudy urine. Extremities: No cyanosis clubbing or edema. No calf tenderness or asymmetry Spine/Back. Non tender to palpation. No CVA tenderness Skin: Good turgor without rashes. Neurologic exam: Cranial nerves two through 12 are intact. Motor and sensation are intact and symmetrical throughout. Course 1356: Medical records reviewed. The patient was seen in room A3, a physical exam was performed. 1419: Asymptomatic, the patients BP is 102. 1500: The patients BP and pulse have improved, he is not tachycardic or h ypotensive, I ordered a CT of the abdomen to rule out the kidney stone 1530: The patient is resting, he is asymptomatic and asking for a cookie. 1626: I spoke with Glo [facility], who agreed to accept the patient for further evaluation. 1650: The patient was admitted. Administered Medications Albuterol (Duoneb) 3 ml INH TIDR MARS Stop: 07/31/19 18:59 Last Admin: 07/01/19 19:05 Dose: 3 ml Documented by: [id number] Apixaban (Eliquis) 2.5 mg PO BID MARS Stop: 07/31/19 20:59 Last Admin: 07/01/19 21:15 Dose: 2.5 mg Documented by: [id number] Guaifenesin (Mucinex) 1,200 mg PO BID MARS Stop: 07/31/19 20:59 Last Admin: 07/01/19 21:15 Dose: 1,200 mg Documented by: [id number] Levofloxacin/Dextrose (Levaquin/D5w) 500 mg in 100 mls @ 100 mls/hr IV Q24H MARS; Protocol Stop: 07/11/19 18:59 Last Infusion: 07/01/19 21:20 Dose: 0 mls/hr Documented by: [id number] Admin: 07/01/19 19:55 Dose: 100 mls/hr Documented by: [id number] Oxycodone HCl (Roxicodone Immediate Rel) 5 mg PO HS MARS Stop: 07/15/19 20:59 Last Admin: 07/01/19 21:15 Dose: 5 mg Documented by: [id number] Pravastatin Sodium (Pravachol) 20 mg PO QPM MARS Stop: 07/31/19 20:59 Last Admin: 07/01/19 21:15 Dose: 20 mg Documented by: [id number] Simethicone (Mylicon) 80 mg PO Q6H PRN PRN Reason: Flatulence Stop: 07/31/19 21:23 Last Admin: 07/01/19 22:34 Dose: 80 mg Documented by: [id number] Discontinued Medications Sodium Chloride (Nss 1000ml) 500 mls @ 999 mls/hr IV .Q31M ONE Stop: 07/01/19 14:29 Last Infusion: 07/01/19 15:14 Dose: 0 mls/hr Documented by: [id number] Admin: 07/01/19 14:37 Dose: 999 mls/hr Documented by: [id number] Cefepime HCl (Maxipime) 2,000 mg in 20 mls @ 5 mls/min IV NOW STA; Protocol Stop: 07/01/19 14:57 Last Admin: 07/01/19 15:20 Dose: 5 mls/min Documented by: [id number] Sodium Chloride (Nss) 500 mls @ 999 mls/hr IV .Q31M ONE Stop: 07/01/19 15:44 Last Infusion: 07/01/19 15:52 Dose: 0 mls/hr Documented by: [id number] Admin: 07/01/19 15:20 Dose: 999 mls/hr Documented by: [id number] Miscellaneous (Patient's Height And/Or Weight Needed) 1 ea N/A Q2H MARS Stop: 07/31/19 18:44 Last Admin: 07/01/19 18:47 Dose: 1 ea Documented by: [id number] Medical Decision Making Differential Diagnosis Differential Diagnosis: Sepsis, anemia, dehydration, UTI, electrolyte or metabolic abnormalities. Medical Records Attestation: I reviewed the patient's medical records. Home Medications Current Medication List: was personally reviewed by me Laboratory Data Attestation: I reviewed the patient's lab results. Result diagrams: 07/01/19 13:19 07/01/19 13:19 Lab Results 07/01/19 07/01/19 07/01/19 Range/Units 13:19 13: 13:19 WBC 15.37 H (4.8-10.8) K/uL RBC 3.58 L (4.7-6.1) M/uL Hgb 11.9 L (14.0-18.0) g/dL Hct 36.3 L (42-52) % MCV 101.4 H (80-100) fL MCH 33.2 (25-34) pg MCHC 32.8 (32-36) g/dL RDW Std Deviation 55.9 H (36.4-46.3) fL RDW Coeff of Ashley 15.1 H (11.5-14.5) % Plt Count 396 (130-400) K/uL MPV 10.3 (7.4-10.4) fL Immature Gran % (Auto) 3.8 % Neut % (Auto) 82.7 % Lymph % (Auto) 7.4 % Weston % (Auto) 5.8 % Eos % (Auto) 0.1 % Baso % (Auto) 0.2 % Immature Gran # (Auto) 0.58 H (0.00-0.02) K/uL Neut # (Auto) 12.71 H (1.4-6.5) K/uL Lymph # (Auto) 1.14 L (1.2-3.4) K/uL Weston # (Auto) 0.89 H (0.11-0.59) K/uL Eos # (Auto) 0.02 (0-0.5) K/uL Baso # (Auto) 0.03 (0-0.2) K/uL PT 10.8 (9.0-12.0) Seconds INR 1.1 (0.9-1.1) APTT 26.2 (21.0-31.0) Seconds PTT Ratio 1.0 Sodium 141 (136-145) mmol/L Potassium 4.5 (3.5-5.1) mmol/L Chloride 106 (98-107) mmol/L Carbon Dioxide 27 (21-32) mmol/L Anion Gap 8.0 (3-11) BUN 22 H (7-18) mg/dl Creatinine 1.18 (0.6-1.4) mg/dl Est Cr Clr Drug Dosing Not Reportable Est GFR ( Amer) 65.3 Est GFR (Non-Af Amer) 56.3 BUN/Creatinine Ratio 18.8 (10-20) Glucose 135 H (70-99) mg/dl Lactate (0.4-2.0) mmol/L Calcium 9.6 (8.5-10.1) mg/dl Total Bilirubin 0.4 (0.2-1) mg/dl AST 9 L (15-37) U/L ALT 15 (12-78) U/L Alkaline Phosphatase 126 H (45-117) U/L Troponin I < 0.015 (0-0.045) ng/ml NT-Pro-B Natriuret Pep 1310 (0-1800) pg/ml Total Protein 6.4 (6.4-8.2) gm/dl Albumin 3.1 L (3.4-5.0) gm/dl Globulin 3.3 (2.5-4.0) gm/dl Albumin/Globulin Ratio 0.9 (0.9-2) Procalcitonin (0-0.5) ng/ml Urine Color Urine Appearance (Clear) Urine pH (4.5-7.5) POC Urine pH (4.5-7.5) Ur Specific Mccaskill (1.000-1.030) Urine Protein (Negative) POC Urine Protein (Negative) Urine Glucose (UA) (Negative) POC Ur Glucose (UA) (Normal) Urine Ketones (Negative) POC Urine Ketones (Negative) Urine Blood (Negative) POC Urine Blood (Negative) Urine Nitrite (Negative) POC Urine Nitrite (Negative) Urine Bilirubin (Negative) POC Urine Bilirubin (Negative) Urine Urobilinogen (Negative) POC Urine Urobilinogen (Normal) Ur Leukocyte Esterase (Negative) POC U Leukocyte Esteras (Negative) Urine WBC (Auto) (0-5) /hpf Urine RBC (Auto) (0-4) /hpf U Hyaline Cast (Auto) (0-5) /lpf U Epithel Cells (Auto) (0-5) /lpf Urine Bacteria (Auto) (Negative) Granular Casts (0) /lpf Urine Yeast (None Prsent) 07/01/19 07/01/19 07/01/19 Range/Units 13:19 14:39 14:50 WBC (4.8-10.8) K/uL RBC (4.7-6.1) M/uL Hgb (14.0-18.0) g/dL Hct (42-52) % MCV (80-100) fL MCH (25-34) pg MCHC (32-36) g/dL RDW Std Deviation (36.4-46.3) fL RDW Coeff of Ashley (11.5-14.5) % Plt Count (130-400) K/uL MPV (7.4-10.4) fL Immature Gran % (Auto) % Neut % (Auto) % Lymph % (Auto) % Weston % (Auto) % Eos % (Auto) % Baso % (Auto) % Immature Gran # (Auto) (0.00-0.02) K/uL Neut # (Auto) (1.4-6.5) K/uL Lymph # (Auto) (1.2-3.4) K/uL Weston # (Auto) (0.11-0.59) K/uL Eos # (Auto) (0-0.5) K/uL Baso # (Auto) (0-0.2) K/uL PT (9.0-12.0) Seconds INR (0.9-1.1) APTT (21.0-31.0) Seconds PTT Ratio Sodium (136-145) mmol/L Potassium (3.5-5.1) mmol/L Chloride (98-107) mmol/L Carbon Dioxide (21-32) mmol/L Anion Gap (3-11) BUN (7-18) mg/dl Creatinine (0.6-1.4) mg/dl Est Cr Clr Drug Dosing Est GFR ( Amer) Est GFR (Non-Af Amer) BUN/Creatinine Ratio (10-20) Glucose (70-99) mg/dl Lactate 2.0 (0.4-2.0) mmol/L Calcium (8.5-10.1) mg/dl Total Bilirubin (0.2-1) mg/dl AST (15-37) U/L ALT (12-78) U/L Alkaline Phosphatase (45-117) U/L Troponin I (0-0.045) ng/ml NT-Pro-B Natriuret Pep (0-1800) pg/ml Total Protein (6.4-8.2) gm/dl Albumin (3.4-5.0) gm/dl Globulin (2.5-4.0) gm/dl Albumin/Globulin Ratio (0.9-2) Procalcitonin 0.25 (0-0.5) ng/ml Urine Color Yellow Urine Appearance Turbid A (Clear) Urine pH 5.0 (4.5-7.5) POC Urine pH (4.5-7.5) Ur Specific Mccaskill 1.024 (1.000-1.030) Urine Protein 2+ H (Negative) POC Urine Protein (Negative) Urine Glucose (UA) Negative (Negative) POC Ur Glucose (UA) (Normal) Urine Ketones Trace H (Negative) POC Urine Ketones (Negative) Urine Blood 2+ H (Negative) POC Urine Blood (Negative) Urine Nitrite Negative (Negative) POC Urine Nitrite (Negative) Urine Bilirubin Negative (Negative) POC Urine Bilirubin (Negative) Urine Urobilinogen Negative (Negative) POC Urine Urobilinogen (Normal) Ur Leukocyte Esterase 3+ H (Negative) POC U Leukocyte Esteras (Negative) Urine WBC (Auto) >30 H (0-5) /hpf Urine RBC (Auto) >30 H (0-4) /hpf U Hyaline Cast (Auto) 10-30 H (0-5) /lpf U Epithel Cells (Auto) >30 H (0-5) /lpf Urine Bacteria (Auto) Negative (Negative) Granular Casts 5-10 H (0) /lpf Urine Yeast Present A (None Prsent) 07/01/19 Range/Units 14:58 WBC (4.8-10.8) K/uL RBC (4.7-6.1) M/uL Hgb (14.0-18.0) g/dL Hct (42-52) % MCV (80-100) fL MCH (25-34) pg MCHC (32-36) g/dL RDW Std Deviation (36.4-46.3) fL RDW Coeff of Ashley (11.5-14.5) % Plt Count (130-400) K/uL MPV (7.4-10.4) fL Immature Gran % (Auto) % Neut % (Auto) % Lymph % (Auto) % Weston % (Auto) % Eos % (Auto) % Baso % (Auto) % Immature Gran # (Auto) (0.00-0.02) K/uL Neut # (Auto) (1.4-6.5) K/uL Lymph # (Auto) (1.2-3.4) K/uL Weston # (Auto) (0.11-0.59) K/uL Eos # (Auto) (0-0.5) K/uL Baso # (Auto) (0-0.2) K/uL PT (9.0-12.0) Seconds INR (0.9-1.1) APTT (21.0-31.0) Seconds PTT Ratio Sodium (136-145) mmol/L Potassium (3.5-5.1) mmol/L Chloride (98-107) mmol/L Carbon Dioxide (21-32) mmol/L Anion Gap (3-11) BUN (7-18) mg/dl Creatinine (0.6-1.4) mg/dl Est Cr Clr Drug Dosing Est GFR ( Amer) Est GFR (Non-Af Amer) BUN/Creatinine Ratio (10-20) Glucose (70-99) mg/dl Lactate (0.4-2.0) mmol/L Calcium (8.5-10.1) mg/dl Total Bilirubin (0.2-1) mg/dl AST (15-37) U/L ALT (12-78) U/L Alkaline Phosphatase (45-117) U/L Troponin I (0-0.045) ng/ml NT-Pro-B Natriuret Pep (0-1800) pg/ml Total Protein (6.4-8.2) gm/dl Albumin (3.4-5.0) gm/dl Globulin (2.5-4.0) gm/dl Albumin/Globulin Ratio (0.9-2) Procalcitonin (0-0.5) ng/ml Urine Color Urine Appearance (Clear) Urine pH (4.5-7.5) POC Urine pH 5 (4.5-7.5) Ur Specific Mccaskill (1.000-1.030) Urine Protein (Negative) POC Urine Protein 2+ H (Negative) Urine Glucose (UA) (Negative) POC Ur Glucose (UA) Normal (Normal) Urine Ketones (Negative) POC Urine Ketones Negative (Negative) Urine Blood (Negative) POC Urine Blood 250 H (Negative) Urine Nitrite (Negative) POC Urine Nitrite Negative (Negative) Urine Bilirubin (Negative) POC Urine Bilirubin 2+ H (Negative) Urine Urobilinogen (Negative) POC Urine Urobilinogen 1 H (Normal) Ur Leukocyte Esterase (Negative) POC U Leukocyte Esteras 2+ H (Negative) Urine WBC (Auto) (0-5) /hpf Urine RBC (Auto) (0-4) /hpf U Hyaline Cast (Auto) (0-5) /lpf U Epithel Cells (Auto) (0-5) /lpf Urine Bacteria (Auto) (Negative) Granular Casts (0) /lpf Urine Yeast (None Prsent) Imaging Data Radiologist's Impression: Radiology results as stated below per my review and the radiologist's interpretation: XR chest 1V portable CLINICAL HISTORY: 84 years-old Male presenting with Sepsis. TECHNIQUE: Portable upright AP view of the chest was obtained. COMPARISON: 05/31/2019. FINDINGS: Atherosclerosis of the aortic arch. Cardiac silhouette borderline enlarged. Heterogeneity lung parenchyma. Mildly low lung volumes. Partial obscuration of the left hemidiaphragm worsened from prior. Suspected underlying left pleural effusion. No pneumothorax. Degenerative changes of the thoracic spine. Upper abdomen normal. IMPRESSION: 1. Increased left basilar opacity likely effusion and atelectasis. Underlying infection is not excluded. 2. Heterogeneous lung parenchyma likely relates to underlying chronic lung di sease. 3. Borderline cardiomegaly. No evidence of volume overload. Electronically signed by: Gera Philip M.D. 07/01/2019 2:14 PM ECG Data Attestation: I personally reviewed and interpreted this ECG as follows: Indication: other (Dizziness) Rate (beats per minute): 124 Rhythm: atrial fibrillation Findings: + other (Poor Baseline. ); no ST elevation and no acute ischemic change Comparison ECG Date: from (05/30/2019) Change: the following changes noted (Afib replaced normal sinus.) Blood Pressure Blood Pressure Findings: Normal blood pressure MDM Narrative This patient comes in as described above. He was placed in room A3. He is here for treatment and evaluation of dizziness. His most with standing notes over the last couple days. He is currently asymptomatic when sitting on the bed however his initial systolic blood pressure was in the high 70s. This was rechecked shortly after that it is over 100 systolic and he has no chest pain or shortness of breath he has a normal neurologic exam. His heart rate is mildly rapid on the monitor. Given his initial hypotension, a sepsis order set was ordered including blood cultures and lactic acid he was given 500 cc IV normal saline bolus. Chest x-ray, EKG, multiple blood testing was obtained and he has no reported blood or black colors in his stool. He does have an elevated white count. His urinalysis does appear to be infection however it is a chronic catheter. He has chronic changes on his chest and could have an infiltrate there as well. He given IV cefepime which he has had before without difficulty. I do think he needs to be admitted/observed. He is on some diuretics although they sound like to been cutting them down. His hypotension may have been prerenal, it could also been infection/sepsis. He was given additional 1 L cc IV normal saline bolus. I did consult the [facility] hospitalist to see him in the ER for these measures. Impression & Plan Sepsis, Hypotension, UTI (urinary tract infection), Atrial fibrillation, Chronic anticoagulation Critical Care Time Critical Care Time: Yes Total Critical Care Time: 35 Due to the patient's hypotension and unstable vital signs as well as concern for sepsis and cardiac disease, I have personally spent greater than 30 minutes of critical care time in the direct management of this patient. This includes bedside care, interpretation of diagnostic studies, and testing, discussion with consultants, patient, and family members, and other required patient management activities. This 30 minutes is in excess of all separately billable procedures. Discharge Plan Visit Data *Final* Discharge Date/Time: 07/01/19 17:38 Chief Complaint: Dizziness ED Provider: Leoncio Smith Discharge Problem: Sepsis, Hypotension, UTI (urinary tract infection), Atrial fibrillation, Chronic anticoagulation Patient Disposition: Admitted As Inpatient Discharge Instructions Interventions: ED Discharge Assessment Last Done: 07/01/19 17:38 Discharge Problem: Sepsis Qualifiers: Sepsis type: sepsis due to unspecified organism Sepsis acute organ dysfunction status: with acute organ dysfunction Severe sepsis acute organ dysfunction type: unspecified Severe sepsis shock status: unspecified Qualified Code(s): A41.9 - Sepsis, unspecified organism Hypotension Qualifiers: Hypotension type: unspecified hypotension type Qualified Code(s): I95.9 - Hypotension, unspecified UTI (urinary tract infection) Qualifiers: Urinary tract infection type: site unspecified Hematuria presence: without hematuria Qualified Code(s): N39.0 - Urinary tract infection, site not specified Atrial fibrillation Qualifiers: Atrial fibrillation type: chronic Qualified Code(s): I48.2 - Chronic atrial fibrillation The scribe's documentation has been prepared under my direction and personally reviewed by me in its entirety. I confirm that the note above accurately refl ects all work, treatment, procedures, and medical decision making performed by me.
[2019-07-01] MEDS ORDERED: CEFEPIME 2,000 MG/20 ML VIAL IV STA (14:54)
[2019-07-01 15:02] LABS: POC Urine Bilirubin 2+ (Negative); POC Urine Blood 250 (Negative); POC Urine Glucose Normal (Normal); POC Urine Ketones Negative (Negative); POC Urine Leukocytes 2+ (Negative); POC Urine Nitrite Negative (Negative); POC Urine Protein 2+ (Negative); POC Urine Urobilinogen 1 (Normal); POC Urine pH 5 (4.5-7.5)
[2019-07-01 15:09] LABS: Appearance Urine Turbid (Clear); Bacteria Urine Automated Negative (Negative); Bilirubin Urine Negative (Negative); Blood Urine 2+ (Negative); Color Urine Yellow; Epithelial Cell Urine Auto >30 /lpf (0-5); Glucose Urine UA Negative (Negative); Ketones Urine Trace (Negative); Leukocyte Esterase Urine 3+ (Negative); Nitrite Urine Negative (Negative); Protein Urine 2+ (Negative); Specific Gravity Urine 1.024 (1.000-1.030); Urobilinogen Urine Negative (Negative); WBC Urine Automated >30 /hpf (0-5)
[2019-07-01] MEDS ORDERED: SODIUM CHLORIDE 0.9% 500 ML IV ONE (15:14)
[2019-07-01 15:23] LABS: RBC Urine Automated >30 /hpf (0-4)
--- NOTE | 2019-07-01 17:32 | History & Physical Report ---
Date of Service July 01, 2019 Assessment & Plan (1) Sepsis: (2) Hypotension: - Admit to tele - Concern as the pt has previously presented with episode of hypotension, this time with systolic in the 70s upon presentation to the ER, in the setting of UTI. - S/p NSS x 1 L, hold lasix, no further fluids as do not want to volume overload him, will also hold lisionpril. - Continue beta blockade as to not cause rebound tachycardia and to help control rates for now, monitor overnight and can allow day team to decide to hold morning dose - Follow BCx x 2 - Follow UCx - Lactic = 2.0, recheck at 1800 - Received 1 dose of cefepime in the ER, convert to Levaquin IV (3) UTI (urinary tract infection): - Suspected - Follow UA, ordered indwelling tong to be changed again, was last done during previous admission about 3.5 weeks ago. - Last UCx grew out e. coli and prior to that was morganella morganii which were sensitive to levaquin, will continue this IV for now. Already received a dose of cefepime and IV in the ER. (4) Atrial fibrillation with RVR: -EKG reviewed showing A. fib with RVR, while at bedside patient heart rate seems to be controlled around 100. We will continue beta-blockade for now- metoprolol succinate 50 mg QAM. Can use lopressor IV 5 mg If rates not improving. -Patient is possibly symptomatic with lightheadedness occurring during A. fib exacerbations, however patient daughter notes that his heart rate was lower earlier today during the episode of lightheadedness, reported as 90 from the PT therapist who was present in his home. -Continue Eliquis 2.5 p.o. BID -Can consider cardiology consult if not improving -Echocardiogram on 01/22 showed EF of 55% (5) Anticoagulant long-term use: - Cont Eliquis (6) Chronic respiratory failure with hypoxia: -Maintained on 2 L via NC at all times, patient is not hypoxic, O2 sats in mid 90s during my exam (7) COPD (chronic obstructive pulmonary disease): -History of such, may continue albuterol inhaler as needed, Dulera 1 puff Q12H, ipratropium albuterol inhaler TID, montelukast 10 mg daily, Spiriva daily -CXR reviewed, possible left basilar opacity likely effusion and atelectasis, underlying chronic lung disease, no volume overload -if any underlying lung infection Levaquin would cover this as well -Recently completed prednisone taper after being discharged from previous hospital stay (8) BPH (benign prostatic hyperplasia): - Noted, tong in place - Follows with [facility] urology as outpatient (9) Chronic kidney disease, stage 3: -Cr. around baseline of 1.18, BUN 22 (10) Chronic diastolic heart failure: - Hold lasix which is scheduled at home every other day, will continue metoprolol succinate 50 mg QAM - No current exacerbation (11) Hyperlipidemia: - Cont pravastatin 20 mg QPM (12) Hypertension: - As above. (13) Chronic indwelling Tong catheter: -As above (14) Urinary retention: - Chronically indwelling tong. (15) DVT prophylaxis: - markie duenas Dispo: From home, lives with , CM to assist with discharge planning. Likely to remain in the hospital for at least 2 days secondary to hypotension and needs for close volume monitoring, BP and HR control. History of Present Illness Primary Care Provider: Mateo Morse MD This is an 84-year-old male with past medical history of chronic diastolic CHF, HTN, HLD, A. fib with RVR on Eliquis, chronic indwelling Tong, BPH, COPD, remote history of tobacco use, DM type II, vitamin D deficiency CKD stage III, anemia who presents with acute onset of lightheadedness today. Patient was being seen by PT with home health services where he was asked to stand up but then became acutely lightheaded. Patient reports that he did eat breakfast and drinks ok. He admits to having loose bowels 2-3 times daily and continues to use MiraLAX for fear of obstruction as this is happened once previously. Patient notes that he did take all his morning medications today and also takes Lasix every other day. He denies any issues with dizziness or the room spinning. He lives at home with his who is in poor state of health due to muscular dystrophy, therefore his 2 children check in on him. His daughter is present at bedside and notes that they have been looking into more help at home recently. The daughter would appreciate case management to assist with discharge planning. Upon presentation to the ER patient's SBP was equal to 70, improved to 90 with administration of 1 L NSS Patient was also noted to be in A. fib with heart rate of 110 Lactic acid =2.0 Blood cultures and urine cultures have been obtained and he was started on cefepime IV Allergies Allergy/AdvReac Type Severity Reaction Status Date / Time tamsulosin Allergy Unknown Unknown Verified 07/01/19 13:56 cilostazol AdvReac Unknown dizziness, Verified 07/01/19 13:56 palpitations diltiazem AdvReac Unknown dizziness, Verified 07/01/19 13:56 palpitations simvastatin AdvReac Unknown dizziness Verified 07/01/19 13:56 Home Medications Home Medications Medication Instructions Recorded Confirmed Type cholecalciferol (vitamin D3) 2,000 2,000 units PO DAILY #30 cap 03/15/19 07/01/19 Rx unit capsule albuterol sulfate 2 puff INHALATION Q4H PRN 03/23/19 07/01/19 History dutasteride 0.5 mg PO QAM 03/23/19 07/01/19 History guaifenesin [Mucinex] 1,200 mg PO BID 03/23/19 07/01/19 History metoprolol succinate 50 mg PO QAM 03/23/19 07/01/19 History pravastatin 20 mg PO QPM 03/23/19 07/01/19 History Dulera 1 puff INHALATION Q12H 04/13/19 07/01/19 History levalbuterol HFA 45 mcg/actuation 1 puffs INH Q6H PRN 05/08/19 07/01/19 History aerosol inhaler Eliquis 2.5 mg PO BID 05/31/19 07/01/19 History acetaminophen 650 mg PO Q6H PRN 05/31/19 07/01/19 History furosemide 20 mg PO Q2D 05/31/19 07/01/19 History potassium chloride [Klor-Con M20] 20 meq PO Q2D 05/31/19 07/01/19 History cyanocobalamin (vitamin B-12) 1,000 mcg PO DAILY #30 cap 06/03/19 07/01/19 Rx polyethylene glycol 3350 [Miralax] 17 g PO DAILY #30 ea 06/03/19 07/01/19 Rx folic acid 1 mg tablet 1 mg PO QAM #30 tab 06/09/19 07/01/19 Rx ipratropium-albuterol 0.5 mg-3 3 ml INHALATION TID #180 ml 06/16/19 07/01/19 Rx mg(2.5 mg base)/3 mL nebulization soln montelukast 10 mg tablet 10 mg PO QAM #30 tab 06/21/19 07/01/19 Rx docusate sodium 100 mg tablet 100 mg PO BID PRN tab 06/23/19 07/01/19 History fluticasone propionate 50 2 sprays INTNAS DAILY #16 gm 06/28/19 07/01/19 Rx mcg/actuation nasal spray,suspension tiotropium bromide 18 mcg capsule 1 cap INHALATION DAILY #30 puffs 06/28/19 07/01/19 Rx with inhalation device oxycodone 5 mg tablet 5 mg PO HS #30 tab 06/30/19 07/01/19 Rx benzonatate 100 mg PO DAILY 07/01/19 07/01/19 History lisinopril 20 mg tablet 20 mg PO DAILY #90 tab 07/01/19 07/01/19 Rx Past Med/Surg History Medical History Paroxysmal atrial fibrillation Dx 07/28/18 during admission for COPD exacerbation. Initially in RVR, but spontaneously converted; started on Metoprolol and Eliquis. Eliquis discontinued during admission 03/08/19 due to hematuria. Weight loss (Acute) Vitamin D deficiency (Acute) Urinary retention (Acute) Sinus tachycardia (Acute) Pulmonary nodule (Acute) Pulmonary emphysema (Acute) PAD (peripheral artery disease) (Acute) Leukocytosis (Acute) Insomnia (Acute) Carotid artery plaque (Acute) <50% stenosis of internal carotids B/L by 2017 doppler Eda disease (Acute) Benign prostatic hyperplasia with urinary obstruction (Acute) Anemia (Acute) Actinic keratosis (Acute) Nephrolithiasis (Acute) UTI (urinary tract infection) (Acute) Chronic kidney disease, stage 3 Chronic diastolic heart failure 2+ ankle edema on exam at PAT Hyperlipidemia Ankle edema, bilateral Pt admits to eating salty snacks lately. Advised to avoid salt. Asthma Cachexia Enlarged prostate Hematuria 2/2 renal calculi Hypertension Indwelling Tong catheter present On home oxygen therapy 2lpm via n/c Surgical History History of appendectomy History of colonoscopy History of cystoscopy WITH STENT, during admission 03/2019 History of lithotripsy History of tonsillectomy Hx of transurethral resection of prostate Family History Mother Cancer thyroid Brother Myocardial infarction Prostate cancer Father No problems noted. Other Family history non-contributory No significant family history Social History Preferred Language: Cuban Communication Ability: Effective Prescriptionist Required: No Beliefs That Will Affect Care: None marital status: Current Living Situation: Spouse Current Living Situation Comment: currently has home health services Other Information That Helps Us Care for You: No Feels Safe at Home: Yes Safety Concerns: Feels Safe At This Time Smoking Status: Former smoker Tobacco Type: cigarettes ; Cigarettes Per Day: 20 ; Second Hand Exposure: No ; Hx Alcohol Use: Yes Alcohol type: beer Hx Substance Use: No Review of Systems Review of Systems: Constitutional: No fever, sweats or chills, + dizziness now improved Eyes: No diplopia, no worsening or blurred vision ENT: normal hearing, no trouble swallowing Respiratory: + chronic cough, + occasional sputum production, no dyspnea at rest or on exertion, wears 2 L NC at all times Cardiovascular: No chest pain, tightness or palpitations Abdomen: + as per HPI. No pain, nausea, vomiting, diarrhea or constipation Musculoskeletal: No joint pain, calf pain, swelling Neurologic: No weakness, numbness/tingling, or balance problems Psychiatric: No anxiety or depression Skin: No rash or itch Physical Exam Physical Exam: General: awake, alert, no apparent distress, + thin Head: Normocephalic, atraumatic ENT: PERRL, EOMI, no pharyngeal exudate, mucous membranes moist Chest: Clear to auscultation, on room air, no adventitious breath sounds Cardiac: irregularly irregular, + HR around 105 at bedside, no murmur, no JVD, normal peripheral pulses, good capillary refill Abdominal: NABS x 4 quadrants, soft, nontender to palpation, no rebound, guarding or tenderness, + chronic indwelling tong with cloudy yellow urine, no clot Extremities: Normal inspection, no peripheral edema or erythema, calfs nontender to palpation Psych: Normal mood and affect Neuro: AAO x 3, no motor deficits, speech is clear Results & Data Vital Signs (Past 12 Hours) Vital Signs Temp Pulse Resp BP Pulse Ox 07/01/19 15:01 108 H 17 108/61 93 07/01/19 15:00 110 H 23 93 07/01/19 14:50 112 H 24 99 07/01/19 14:46 103 H 24 100/60 97 07/01/19 14:40 109 H 20 99 07/01/19 14:31 93 H 23 95/54 L 07/01/19 14:30 112 H 24 07/01/19 14:20 121 H 28 H 94 07/01/19 14:16 110 H 29 H 102/66 93 07/01/19 14:14 108 H 27 H 89/60 L 07/01/19 14:10 124 H 30 H 07/01/19 14:00 112 H 18 07/01/19 13:59 93 07/01/19 13:50 109 H 25 H 07/01/19 13:40 117 H 17 07/01/19 13:30 127 H 27 H 07/01/19 13:20 119 H 23 07/01/19 13:19 112 H 26 H 07/01/19 13:16 36.9 C 20 78/59 L 97 07/01/19 13:13 117 H 15 78/59 L Diagnostic Findings XR chest 1V portable CLINICAL HISTORY: 84 years-old Male presenting with Sepsis. TECHNIQUE: Portable upright AP view of the chest was obtained. COMPARISON: 05/31/2019. FINDINGS: Atherosclerosis of the aortic arch. Cardiac silhouette borderline enlarged. Heterogeneity lung parenchyma. Mildly low lung volumes. Partial obscuration of the left hemidiaphragm worsened from prior. Suspected underlying left pleural effusion. No pneumothorax. Degenerative changes of the thoracic spine. Upper abdomen normal. IMPRESSION: 1. Increased left basilar opacity likely effusion and atelectasis. Underlying infection is not excluded. 2. Heterogeneous lung parenchyma likely relates to underlying chronic lung disease. 3. Borderline cardiomegaly. No evidence of volume overload. ECG Additional Comments: 01-JUL-2019 13:12:28 [facility]-EDSTAT ROUTINE RETRIEVAL Atrial fibrillation with rapid ventricular response Inferior infarct , age undetermined Cannot rule out Anterior infarct , age undetermined Abnormal ECG When compared with ECG of 03-JUN-2019 09:16, Atrial fibrillation has replaced Sinus rhythm Vent. rate has increased BY 49 BPM Confirmed by Derrek Melton ([id number]) on 07/01/2019 4:55:41 PM 25mm/s 10mm/mV 150Hz 9.0.9 12SL 241 AGUSTÍN: 11 Referred by: REFERRED SELF Confirmed By: Derrek Melton Vent. rate 124 BPM [place] interval * ms QRS duration 84 ms QT/QTc 312/448 ms P-R-T axes * -14 -8 Code Status & VTE Plan Code Status Full code - discussed with pt and daughter at bedside VTE Prophylaxis Plan VTE Prophylaxis will be ordered: Yes Supervising Physician Co-Signing Physician Notes I have seen the patient with Gl[facility] [place]ir and agree with exam , assessment and plan. PG Care Time/CCT Total # of Minutes Spent Total Time Spent with Patient: Total time spent is greater than 50% in coordination of care (as documented) at patient's floor/unit and/or counseling patient: (1) UTI (urinary tract infection) Urinary tract infection type: site unspecified (2) BPH (benign prostatic hyperplasia) Lower urinary tract symptom detail: urinary retention Lower urinary tract symptom presence: symptoms present Qualified Code(s): N40.1 - Benign prostatic hyperplasia with lower urinary tract symptoms; R33.8 - Other retention of urine (3) Sepsis Sepsis type: sepsis due to unspecified organism Severe sepsis acute organ dysfunction type: unspecified Severe sepsis shock status: unspecified (4) COPD (chronic obstructive pulmonary disease) COPD type: COPD with acute exacerbation Qualified Code(s): J44.1 - Chronic obstructive pulmonary disease with (acute) exacerbation (5) Hypertension Hypertension type: essential hypertension Qualified Code(s): I10 - Essential (primary) hypertension (6) Hypotension Hypotension type: unspecified hypotension type Qualified Code(s): I95.9 - Hypotension, unspecified
[2019-07-01] MEDS ORDERED: ACETAMINOPHEN 325 MG TAB PO PRN (18:09)
[2019-07-01] MEDS ORDERED: ALBUTEROL HFA 8 GM INHALER INH PRN (18:09)
[2019-07-01] MEDS ORDERED: DOCUSATE SODIUM 100 MG CAP PO PRN (18:09)
[2019-07-01] MEDS ORDERED: LEVALBUTEROL TARTRATE 15 GM HFA.AER.AD INH PRN (18:09)
[2019-07-01] MEDS ORDERED: ONDANSETRON INJ 2 MG/ML 2 ML VIAL IV PRN (18:09)
[2019-07-01] MEDS ORDERED: PATIENT'S HEIGHT AND/OR WEIGHT NEEDED SCH (18:45)
[2019-07-01] MEDS: ALBUT/IPRATROP 3MG/0.5MG NEB 3 ML VIAL INH SCH (19:05)
[2019-07-01] MEDS: LEVOFLOXACIN/D5W 500 MG/100 ML BAG IV SCH (19:55)
[2019-07-01] MEDS: OXYCODONE HCL IR 5 MG TAB (IMMEDIATE RELEASE) PO SCH (21:15)
[2019-07-01] MEDS: APIXABAN 2.5 MG TAB PO SCH (21:15)
[2019-07-01] MEDS: guaiFENesin 600 MG TABCR PO SCH (21:15)
[2019-07-01] MEDS: PRAVASTATIN SOD 20 MG TAB PO SCH (21:15)
[2019-07-01] MEDS ORDERED: INFLUENZA ADMINISTRATION CHARGE ONE (21:45)
[2019-07-01] MEDS ORDERED: INFLUENZA VIRUS QUAD VACCINE 0.5 ML SYR IM ONE (21:45)
[2019-07-01] MEDS: SIMETHICONE 80 MG CHEW PO PRN (22:34)
[2019-07-02] MEDS: DULERA - ORDER AWAITING ACTION SCH ×3 (01:14→14:09)
[2019-07-02] MEDS ORDERED: SODIUM CHLORIDE 0.65% NA SOLN 45 ML (OCEAN) ONE (03:42)
[2019-07-02] MEDS: ACETAMINOPHEN 325 MG TAB PO PRN ×2 (05:32→11:32)
[2019-07-02 06:47] LABS: Hemoglobin 10.6 g/dL (14.0-18.0); Mean Corpuscular Hemoglobin 32.7 pg (25-34); Mean Corpuscular Hgb Conc 32.1 g/dL (32-36); Mean Corpuscular Volume 101.9 fL (80-100); Mean Platelet Volume 9.8 fL (7.4-10.4); Platelet Count 303 K/uL (130-400); RDW Coefficient of Variation 15.1 % (11.5-14.5); RDW Standard Deviation 55.4 fL (36.4-46.3); Red Blood Count 3.24 M/uL (4.7-6.1); White Blood Count 13.11 K/uL (4.8-10.8)
[2019-07-02] MEDS: ALBUT/IPRATROP 3MG/0.5MG NEB 3 ML VIAL INH SCH ×3 (06:52→20:12)
[2019-07-02 07:18] LABS: Albumin Level 2.7 gm/dl (3.4-5.0); BUN Creatinine Ratio 18.8 (10-20); Calcium 8.8 mg/dl (8.5-10.1); Creatinine Clr Calc Pharmacy 43.6 ml/min; Est GFR (African American) 65.3; Est GFR (Non-African American) 56.3; Potassium 4.2 mmol/L (3.5-5.1)
[2019-07-02 07:21] LABS: Albumin Globulin Ratio 0.9 (0.9-2); Bilirubin,Total 0.3 mg/dl (0.2-1); Total Protein 5.7 gm/dl (6.4-8.2)
[2019-07-02] MEDS: FOLIC ACID 1 MG TAB PO SCH (07:55)
[2019-07-02] MEDS: CHOLECALCIFEROL 1,000 UNITS TAB PO SCH (07:55)
[2019-07-02] MEDS: guaiFENesin 600 MG TABCR PO SCH ×2 (07:55→20:02)
[2019-07-02] MEDS: APIXABAN 2.5 MG TAB PO SCH ×2 (07:55→20:02)
[2019-07-02] MEDS: SIMETHICONE 80 MG CHEW PO PRN (07:55)
[2019-07-02] MEDS: MONTELUKAST SODIUM 10 MG TABLET PO SCH (07:56)
[2019-07-02] MEDS: CYANOCOBALAMIN 500 MCG TABLET (VITAMIN B-12) PO SCH (07:56)
[2019-07-02] MEDS: FLUTICASONE PROPIONATE NA SPR 16 GM BTL NAE SCH (07:56)
[2019-07-02] MEDS: METOPROLOL SUCC 50MG EXT REL TAB PO SCH (07:56)
[2019-07-02] MEDS: BENZONATATE 100 MG CAPSULE PO SCH (07:56)
[2019-07-02] MEDS: POLYETHYLENE (MIRALAX) 17 GM PACK PO SCH (07:56)
[2019-07-02] MEDS: TIOTROPIUM BROMIDE 5 PUFF/90 MCG INH INH SCH (08:55)
--- NOTE | 2019-07-02 10:58 | XRay Report ---
XR KUB/Abdomen 1 view CLINICAL HISTORY: 84 years-old Male presenting with Assess renal stone burden per urology. TECHNIQUE: Single supine view of the abdomen was obtained. COMPARISON: 05/31/2019. FINDINGS: Diffuse mild gaseous distention of small and large bowel. This degrades evaluation for renal calculi. Nonobstructive bowel gas pattern. Hyperdense stool may be due to medication administration. Moderate stool burden in the rectum. No gross pneumoperitoneum. Punctate calcifications project over the left upper quadrant possibly splenic granulomata. The bowel gas pattern moderately to severely degrades evaluation of the renal shadows for calculi. Essentially nondiagnostic examination of the ureters for calculi. Osteopenia may be present. Lung bases clear. IMPRESSION: 1. Moderately to severely degraded evaluation for nephrolithiasis and ureteral calculi. Allowing for this, no gross evidence of renal or ureteral alkaline. If there is continuing concern, CT would be r ecommended given limitations in radiography due to bowel gas. Electronically signed by: Gera Philip M.D. 07/02/2019 10:57 AM
--- NOTE | 2019-07-02 12:10 | Hospitalist Progress Note ---
Date of Service July 02, 2019 Assessment & Plan (1) Sepsis: - Hypotensive with leukocytosis, elevated lactic acid level at admission -- likely related to UTI. - Received IV fluid hydration; hold continuous fluids due to h/o CHF. - Levaquin IV for empiric coverage of infection (per previous UC results) (2) Hypotension: - Related to underlying sepsis; now improved. - Continue beta alan in setting of A. fib; holding home Lisinopril. (3) UTI (urinary tract infection): - In setting of chronic indwelling tong -- possible tong catheter associated UTI causing sepsis. - U/a was positive, UC and BC pending. - Continue Levaquin IV for coverage -- per previous UC results. (4) Atrial fibrillation with RVR: - A. fib with RVR on admission; converted to NSR at 3 am last night. - Continue Metoprolol as prescribed to avoid rebound tachycardia. - Continue home Eliquis 2.5 mg BID. (5) Anticoagulant long-term use: - Continue NOAC as noted above. (6) Chronic respiratory failure with hypoxia: - Chronically requires 2L via NC - on home requirements. (7) COPD (chronic obstructive pulmonary disease): - No evidence of acute exacerbation. - Continue home Duoneb TID ATC, Singulair, Spiriva & Dulera as prescribed. - Recently completed Prednisone taper following admission, no indication for further abx. (8) BPH (benign prostatic hyperplasia): - Follows with [facility]; chronic indwelling tong was exchanged last evening. - Cannot tolerate Flomax due to h/o orthostasis. (9) Chronic kidney disease, stage 3: - Renally dose all meds, renal function currently at baseline. (10) Chronic diastolic heart failure: - Echo in January 2019 showed EF 55%, no significant valvular abnormalities. - Monitor net I/Os and daily weights. - Continue home Metoprolol. - Holding home Lasix in setting of hypotension -- takes diuretic QOD. (11) Hyperlipidemia: - Continue Pravastatin 20 mg QPM. (12) Hypertension: - Holding home ACEI; continue Metoprolol as prescribed. (13) Chronic indwelling Tong catheter: - Has chronic indwelling tong; scheduled to follow up with Dr. Irizarry on Friday. - Will order KUB prior to appt -- was ordered as outpt today. 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 - Continue Folate 1 mg PO daily and daily B12 replacement. - Monitor CBC daily. (15) Constipation: - KUB showed moderate stool burden in the rectum. - Will give Dulcolax suppository. - Colace 100 mg BID and Miralax daily, both scheduled. (16) DVT prophylaxis: - Eliquis BID. 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 Subjective Pt. is doing well -- BP is now improved. Denies further episodes of lightheadedness during this admission. Denies chest pain, SOB, N/V, diarrhea or constipation, abd pain. Had tong exchanged last evening without complications. Review of Systems Review of Systems: All systems reviewed & are unremarkable except as noted in HPI & below Constitutional: no fever, no chills, no fatigue, no weakness and no anorexia Respiratory: no cough, no dyspnea, no dyspnea on exertion and no wheezing Cardiovascular: no chest pain, no palpitations and no edema Gastrointestinal: no abdominal pain, no nausea, no vomiting, no constipation and no diarrhea/loose stools Genitourinary: no hematuria Musculoskeletal: no back pain and no joint pain Integumentary: no non-healing lesions Neurologic: no dizziness Physical Exam Physical Exam: General: Resting comfortably HEENT: NC/AT; PERRLA with EOMI; [place] conjunctiva, MMM. No erythema of posterior pharynx Neck: Supple and nontender Cardiac: RRR Lungs: CTA bilaterally Abdomen: Bowel normoactive X 4; Nontender to palpation Extremities: Warm. No edema present Neuro: No focal weakness Skin: No rash Results & Data Vital Signs (Past 12 Hours) Vital Signs Temp Pulse Pulse Resp BP Pulse Ox 07/02/19 11:19 36.6 C 98 H 18 96/64 L 97 07/02/19 08:00 98 H 07/02/19 07:16 36.7 C 101 H 16 122/76 97 07/02/19 06:53 91 H 16 98 07/02/19 03:47 36.5 C 110 H 20 124/68 95 Laboratory Results 0907/02/19 07/02/19 Range/Units 06:25 06:25 00:11 WBC 13.11 H (4.8-10.8) K/uL RBC 3.24 L (4.7-6.1) M/uL Hgb 10.6 L (14.0-18.0) g/dL Hct 33.0 L (42-52) % MCV 101.9 H (80-100) fL MCH 32.7 (25-34) pg MCHC 32.1 (32-36) g/dL RDW Std Deviation 55.4 H (36.4-46.3) fL RDW Coeff of Ashley 15.1 H (11.5-14.5) % Plt Count 303 (130-400) K/uL MPV 9.8 (7.4-10.4) fL Immature Gran % (Auto) % Neut % (Auto) % Lymph % (Auto) % Armstrong % (Auto) % Eos % (Auto) % Baso % (Auto) % Immature Gran # (Auto) (0.00-0.02) K/uL Neut # (Auto) (1.4-6.5) K/uL Lymph # (Auto) (1.2-3.4) K/uL Armstrong # (Auto) (0.11-0.59) K/uL Eos # (Auto) (0-0.5) K/uL Baso # (Auto) (0-0.2) K/uL PT (9.0-12.0) Seconds INR (0.9-1.1) APTT (21.0-31.0) Seconds PTT Ratio Sodium 141 (136-145) mmol/L Potassium 4.2 (3.5-5.1) mmol/L Chloride 108 H (98-107) mmol/L Carbon Dioxide 30 (21-32) mmol/L Anion Gap 3.0 (3-11) BUN 22 H (7-18) mg/dl Creatinine 1.18 (0.6-1.4) mg/dl Est Cr Clr Drug Dosing 43.6 Est GFR ( Amer) 65.3 Est GFR (Non-Af Amer) 56.3 BUN/Creatinine Ratio 18.8 (10-20) Glucose 93 (70-99) mg/dl Lactate 1.5 (0.4-2.0) mmol/L Calcium 8.8 (8.5-10.1) mg/dl Total Bilirubin 0.3 (0.2-1) mg/dl AST 9 L (15-37) U/L ALT 13 (12-78) U/L Alkaline Phosphatase 107 (45-117) U/L Troponin I (0-0.045) ng/ml NT-Pro-B Natriuret Pep (0-1800) pg/ml Total Protein 5.7 L (6.4-8.2) gm/dl Albumin 2.7 L (3.4-5.0) gm/dl Globulin 3.0 (2.5-4.0) gm/dl Albumin/Globulin Ratio 0.9 (0.9-2) Procalcitonin (0-0.5) ng/ml Urine Color Urine Appearance (Clear) Urine pH (4.5-7.5) POC Urine pH (4.5-7.5) Ur Specific [place] (1.000-1.030) Urine Protein (Negative) POC Urine Protein (Negative) Urine Glucose (UA) (Negative) POC Ur Glucose (UA) (Normal) Urine Ketones (Negative) POC Urine Ketones (Negative) Urine Blood (Negative) POC Urine Blood (Negative) Urine Nitrite (Negative) POC Urine Nitrite (Negative) Urine Bilirubin (Negative) POC Urine Bilirubin (Negative) Urine Urobilinogen (Negative) POC Urine Urobilinogen (Normal) Ur Leukocyte Esterase (Negative) POC U Leukocyte Esteras (Negative) Urine WBC (Auto) (0-5) /hpf Urine RBC (Auto) (0-4) /hpf U Hyaline Cast (Auto) (0-5) /lpf U Epithel Cells (Auto) (0-5) /lpf Urine Bacteria (Auto) (Negative) Granular Casts (0) /lpf Urine Yeast (None Prsent) 07/01/19 07/01/19 07/01/19 Range/Units 18:16 14:58 14:50 WBC (4.8-10.8) K/uL RBC (4.7-6.1) M/uL Hgb (14.0-18.0) g/dL Hct (42-52) % MCV (80-100) fL MCH (25-34) pg MCHC (32-36) g/dL RDW Std Deviation (36.4-46.3) fL RDW Coeff of Ashley (11.5-14.5) % Plt Count (130-400) K/uL MPV (7.4-10.4) fL Immature Gran % (Auto) % Neut % (Auto) % Lymph % (Auto) % [place] % (Auto) % Eos % (Auto) % Baso % (Auto) % Immature Gran # (Auto) (0.00-0.02) K/uL Neut # (Auto) (1.4-6.5) K/uL Lymph # (Auto) (1.2-3.4) K/uL [place] # (Auto) (0.11-0.59) K/uL Eos # (Auto) (0-0.5) K/uL Baso # (Auto) (0-0.2) K/uL PT (9.0-12.0) Seconds INR (0.9-1.1) APTT (21.0-31.0) Seconds PTT Ratio Sodium (136-145) mmol/L Potassium (3.5-5.1) mmol/L Chloride (98-107) mmol/L Carbon Dioxide (21-32) mmol/L Anion Gap (3-11) BUN (7-18) mg/dl Creatinine (0.6-1.4) mg/dl Est Cr Clr Drug Dosing Est GFR ( Amer) Est GFR (Non-Af Amer) BUN/Creatinine Ratio (10-20) Glucose (70-99) mg/dl Lactate 2.3 H* (0.4-2.0) mmol/L Calcium (8.5-10.1) mg/dl Total Bilirubin (0.2-1) mg/dl AST (15-37) U/L ALT (12-78) U/L Alkaline Phosphatase (45-117) U/L Troponin I (0-0.045) ng/ml NT-Pro-B Natriuret Pep (0-1800) pg/ml Total Protein (6.4-8.2) gm/dl Albumin (3.4-5.0) gm/dl Globulin (2.5-4.0) gm/dl Albumin/Globulin Ratio (0.9-2) Procalcitonin (0-0.5) ng/ml Urine Color Yellow Urine Appearance Turbid A (Clear) Urine pH 5.0 (4.5-7.5) POC Urine pH 5 (4.5-7.5) Ur Specific [place] 1.024 (1.000-1.030) Urine Protein 2+ H (Negative) POC Urine Protein 2+ H (Negative) Urine Glucose (UA) Negative (Negative) POC Ur Glucose (UA) Normal (Normal) Urine Ketones Trace H (Negative) POC Urine Ketones Negative (Negative) Urine Blood 2+ H (Negative) POC Urine Blood 250 H (Negative) Urine Nitrite Negative (Negative) POC Urine Nitrite Negative (Negative) Urine Bilirubin Negative (Negative) POC Urine Bilirubin 2+ H (Negative) Urine Urobilinogen Negative (Negative) POC Urine Urobilinogen 1 H (Normal) Ur Leukocyte Esterase 3+ H (Negative) POC U Leukocyte Esteras 2+ H (Negative) Urine WBC (Auto) >30 H (0-5) /hpf Urine RBC (Auto) >30 H (0-4) /hpf U Hyaline Cast (Auto) 10-30 H (0-5) /lpf U Epithel Cells (Auto) >30 H (0-5) /lpf Urine Bacteria (Auto) Negative (Negative) Granular Casts 5-10 H (0) /lpf Urine Yeast Present A (None Prsent) 07/01/19 07/01/19 07/01/19 Range/Units 14:39 13:19 13:19 WBC (4.8-10.8) K/uL RBC (4.7-6.1) M/uL Hgb (14.0-18.0) g/dL Hct (42-52) % MCV (80-100) fL MCH (25-34) pg MCHC (32-36) g/dL RDW Std Deviation (36.4-46.3) fL RDW Coeff of Ashley (11.5-14.5) % Plt Count (130-400) K/uL MPV (7.4-10.4) fL Immature Gran % (Auto) % Neut % (Auto) % Lymph % (Auto) % [place] % (Auto) % Eos % (Auto) % Baso % (Auto) % Immature Gran # (Auto) (0.00-0.02) K/uL Neut # (Auto) (1.4-6.5) K/uL Lymph # (Auto) (1.2-3.4) K/uL [place] # (Auto) (0.11-0.59) K/uL Eos # (Auto) (0-0.5) K/uL Baso # (Auto) (0-0.2) K/uL PT (9.0-12.0) Seconds INR (0.9-1.1) APTT (21.0-31.0) Seconds PTT Ratio Sodium 141 (136-145) mmol/L Potassium 4.5 (3.5-5.1) mmol/L Chloride 106 (98-107) mmol/L Carbon Dioxide 27 (21-32) mmol/L Anion Gap 8.0 (3-11) BUN 22 H (7-18) mg/dl Creatinine 1.18 (0.6-1.4) mg/dl Est Cr Clr Drug Dosing Not Reportable Est GFR ( Amer) 65.3 Est GFR (Non-Af Amer) 56.3 BUN/Creatinine Ratio 18.8 (10-20) Glucose 135 H (70-99) mg/dl Lactate 2.0 (0.4-2.0) mmol/L Calcium 9.6 (8.5-10.1) mg/dl Total Bilirubin 0.4 (0.2-1) mg/dl AST 9 L (15-37) U/L ALT 15 (12-78) U/L Alkaline Phosphatase 126 H (45-117) U/L Troponin I < 0.015 (0-0.045) ng/ml NT-Pro-B Natriuret Pep 1310 (0-1800) pg/ml Total Protein 6.4 (6.4-8.2) gm/dl Albumin 3.1 L (3.4-5.0) gm/dl Globulin 3.3 (2.5-4.0) gm/dl Albumin/Globulin Ratio 0.9 (0.9-2) Procalcitonin 0.25 (0-0.5) ng/ml Urine Color Urine Appearance (Clear) Urine pH (4.5-7.5) POC Urine pH (4.5-7.5) Ur Specific [place] (1.000-1.030) Urine Protein (Negative) POC Urine Protein (Negative) Urine Glucose (UA) (Negative) POC Ur Glucose (UA) (Normal) Urine Ketones (Negative) POC Urine Ketones (Negative) Urine Blood (Negative) POC Urine Blood (Negative) Urine Nitrite (Negative) POC Urine Nitrite (Negative) Urine Bilirubin (Negative) POC Urine Bilirubin (Negative) Urine Urobilinogen (Negative) POC Urine Urobilinogen (Normal) Ur Leukocyte Esterase (Negative) POC U Leukocyte Esteras (Negative) Urine WBC (Auto) (0-5) /hpf Urine RBC (Auto) (0-4) /hpf U Hyaline Cast (Auto) (0-5) /lpf U Epithel Cells (Auto) (0-5) /lpf Urine Bacteria (Auto) (Negative) Granular Casts (0) /lpf Urine Yeast (None Prsent) 07/01/19 07/01/19 Range/Units 13:19 13:19 WBC 15.37 H (4.8-10.8) K/uL RBC 3.58 L (4.7-6.1) M/uL Hgb 11.9 L (14.0-18.0) g/dL Hct 36.3 L (42-52) % MCV 101.4 H (80-100) fL MCH 33.2 (25-34) pg MCHC 32.8 (32-36) g/dL RDW Std Deviation 55.9 H (36.4-46.3) fL RDW Coeff of Ashley 15.1 H (11.5-14.5) % Plt Count 396 (130-400) K/uL MPV 10.3 (7.4-10.4) fL Immature Gran % (Auto) 3.8 % Neut % (Auto) 82.7 % Lymph % (Auto) 7.4 % Armstrong % (Auto) 5.8 % Eos % (Auto) 0.1 % Baso % (Auto) 0.2 % Immature Gran # (Auto) 0.58 H (0.00-0.02) K/uL Neut # (Auto) 12.71 H (1.4-6.5) K/uL Lymph # (Auto) 1.14 L (1.2-3.4) K/uL [place] # (Auto) 0.89 H (0.11-0.59) K/uL Eos # (Auto) 0.02 (0-0.5) K/uL Baso # (Auto) 0.03 (0-0.2) K/uL PT 10.8 (9.0-12.0) Seconds INR 1.1 (0.9-1.1) APTT 26.2 (21.0-31.0) Seconds PTT Ratio 1.0 Sodium (136-145) mmol/L Potassium (3.5-5.1) mmol/L Chloride (98-107) mmol/L Carbon Dioxide (21-32) mmol/L Anion Gap (3-11) BUN (7-18) mg/dl Creatinine (0.6-1.4) mg/dl Est Cr Clr Drug Dosing Est GFR ( Amer) Est GFR (Non-Af Amer) BUN/Creatinine Ratio (10-20) Glucose (70-99) mg/dl Lactate (0.4-2.0) mmol/L Calcium (8.5-10.1) mg/dl Total Bilirubin (0.2-1) mg/dl AST (15-37) U/L ALT (12-78) U/L Alkaline Phosphatase (45-117) U/L Troponin I (0-0.045) ng/ml NT-Pro-B Natriuret Pep (0-1800) pg/ml Total Protein (6.4-8.2) gm/dl Albumin (3.4-5.0) gm/dl Globulin (2.5-4.0) gm/dl Albumin/Globulin Ratio (0.9-2) Procalcitonin (0-0.5) ng/ml Urine Color Urine Appearance (Clear) Urine pH (4.5-7.5) POC Urine pH (4.5-7.5) Ur Specific [place] (1.000-1.030) Urine Protein (Negative) POC Urine Protein (Negative) Urine Glucose (UA) (Negative) POC Ur Glucose (UA) (Normal) Urine Ketones (Negative) POC Urine Ketones (Negative) Urine Blood (Negative) POC Urine Blood (Negative) Urine Nitrite (Negative) POC Urine Nitrite (Negative) Urine Bilirubin (Negative) POC Urine Bilirubin (Negative) Urine Urobilinogen (Negative) POC Urine Urobilinogen (Normal) Ur Leukocyte Esterase (Negative) POC U Leukocyte Esteras (Negative) Urine WBC (Auto) (0-5) /hpf Urine RBC (Auto) (0-4) /hpf U Hyaline Cast (Auto) (0-5) /lpf U Epithel Cells (Auto) (0-5) /lpf Urine Bacteria (Auto) (Negative) Granular Casts (0) /lpf Urine Yeast (None Prsent) PG Care Time/CCT Total # of Minutes Spent Total Time Spent with Patient: Total time spent is greater than 50% in coordination of care (as documented) at patient's floor/unit and/or counseling patient: (1) UTI (urinary tract infection) Hematuria presence: without hematuria Urinary tract infection type: site unspecified Qualified Code(s): N39.0 - Urinary tract infection, site not specified (2) BPH (benign prostatic hyperplasia) Lower urinary tract symptom detail: urinary retention Lower urinary tract symptom presence: symptoms present Qualified Code(s): N40.1 - Benign prostatic hyperplasia with lower urinary tract symptoms; R33.8 - Other retention of urine (3) Sepsis Sepsis acute organ dysfunction status: with acute organ dysfunction Sepsis type: sepsis due to unspecified organism Severe sepsis acute organ dysfunction type: unspecified Severe sepsis shock status: unspecified Qualified Code(s): A41.9 - Sepsis, unspecified organism; R65.20 - Severe sepsis without septic shock (4) COPD (chronic obstructive pulmonary disease) COPD type: COPD with acute exacerbation Qualified Code(s): J44.1 - Chronic obstructive pulmonary disease with (acute) exacerbation (5) Hypertension Hypertension type: essential hypertension Qualified Code(s): I10 - Essential (primary) hypertension (6) Hypotension Hypotension type: unspecified hypotension type Qualified Code(s): I95.9 - Hypotension, unspecified
[2019-07-02] MEDS ORDERED: CYANOCOBALAMIN (VITAMIN B-12) 100 MCG TABLET PO SCH (12:45)
[2019-07-02] MEDS ORDERED: bisacodyL 10 MG SUPP PR STA (13:29)
[2019-07-02] MEDS: DOCUSATE SODIUM 100 MG CAP PO SCH ×2 (14:02→20:02)
[2019-07-02] MEDS ORDERED: FLUCONAZOLE 200 MG/100 ML BAG IV SCH (16:00)
[2019-07-02] MEDS ORDERED: ALUMINUM/MAGNESIUM SUSP 30 ML UDC PO PRN (18:20)
[2019-07-02] MEDS: LEVOFLOXACIN/D5W 500 MG/100 ML BAG IV SCH (20:02)
[2019-07-02] MEDS: PRAVASTATIN SOD 20 MG TAB PO SCH (20:02)
[2019-07-02] MEDS ORDERED: COUGH DROP (SUGAR FREE) LOZ 24 LOZ/1 BOX BUCCAL STA (22:36)
[2019-07-02] MEDS ORDERED: COUGH DROP (SUGAR FREE) LOZ 24 LOZ/1 BOX BUCCAL ONE (22:39)
[2019-07-02] MEDS: OXYCODONE HCL IR 5 MG TAB (IMMEDIATE RELEASE) PO SCH (22:41)
[2019-07-03] MEDS: DULERA - ORDER AWAITING ACTION SCH ×2 (00:26→07:34)
[2019-07-03 06:37] LABS: Hematocrit (blood only) 31.8 % (42-52); Hemoglobin 10.2 g/dL (14.0-18.0); Mean Corpuscular Hgb Conc 32.1 g/dL (32-36); Mean Corpuscular Volume 102.9 fL (80-100); Mean Platelet Volume 9.7 fL (7.4-10.4); Platelet Count 304 K/uL (130-400); RDW Coefficient of Variation 15.3 % (11.5-14.5); RDW Standard Deviation 57.2 fL (36.4-46.3); Red Blood Count 3.09 M/uL (4.7-6.1); White Blood Count 11.31 K/uL (4.8-10.8)
[2019-07-03] MEDS: ALBUT/IPRATROP 3MG/0.5MG NEB 3 ML VIAL INH SCH ×2 (06:54→12:51)
[2019-07-03 07:17] LABS: Albumin Globulin Ratio 0.9 (0.9-2); Albumin Level 2.6 gm/dl (3.4-5.0); BUN Creatinine Ratio 18.3 (10-20); Bilirubin,Total 0.4 mg/dl (0.2-1); Calcium 8.2 mg/dl (8.5-10.1); Creatinine Clr Calc Pharmacy 33.3 ml/min; Est GFR (African American) 58.1; Est GFR (Non-African American) 50.1; Globulin 2.9 gm/dl (2.5-4.0); Potassium 4.3 mmol/L (3.5-5.1); Total Protein 5.5 gm/dl (6.4-8.2)
[2019-07-03] MEDS: BENZONATATE 100 MG CAPSULE PO SCH (07:34)
[2019-07-03] MEDS: DOCUSATE SODIUM 100 MG CAP PO SCH (07:34)
[2019-07-03] MEDS: SIMETHICONE 80 MG CHEW PO PRN (07:35)
[2019-07-03] MEDS: TIOTROPIUM BROMIDE 5 PUFF/90 MCG INH INH SCH (07:35)
[2019-07-03] MEDS: MONTELUKAST SODIUM 10 MG TABLET PO SCH (07:35)
[2019-07-03] MEDS: FLUTICASONE PROPIONATE NA SPR 16 GM BTL NAE SCH (07:35)
[2019-07-03] MEDS: APIXABAN 2.5 MG TAB PO SCH (07:35)
[2019-07-03] MEDS: CHOLECALCIFEROL 1,000 UNITS TAB PO SCH (07:36)
[2019-07-03] MEDS: FOLIC ACID 1 MG TAB PO SCH (07:36)
[2019-07-03] MEDS: guaiFENesin 600 MG TABCR PO SCH (07:36)
[2019-07-03] MEDS: METOPROLOL SUCC 50MG EXT REL TAB PO SCH (07:36)
[2019-07-03] MEDS: POLYETHYLENE (MIRALAX) 17 GM PACK PO SCH (07:36)
[2019-07-03] MEDS: CYANOCOBALAMIN 500 MCG TABLET (VITAMIN B-12) PO SCH (07:37)
[2019-07-03] MEDS ORDERED: POTASSIUM CHLORIDE 20 MEQ TABCR PO SCH (09:00)
[2019-07-03 09:55] LABS: Folate (Folic Acid) 18.56 ng/ml (>5.38)
--- NOTE | 2019-07-03 11:53 | Discharge Summary ---
Date of Service July 03, 2019 Admission HPI Per Admitting Provider This is an 84-year-old male with past medical history of chronic diastolic CHF, HTN, HLD, A. fib with RVR on Eliquis, chronic indwelling Tong, BPH, COPD, remote history of tobacco use, DM type II, vitamin D deficiency CKD stage III, anemia who presents with acute onset of lightheadedness today. Patient was being seen by PT with home health services where he was asked to stand up but then became acutely lightheaded. Patient reports that he did eat breakfast and drinks ok. He admits to having loose bowels 2-3 times daily and continues to use MiraLAX for fear of obstruction as this is happened once previously. Patient notes that he did take all his morning medications today and also takes Lasix every other day. He denies any issues with dizziness or the room spinning. He lives at home with his who is in poor state of health due to muscular dystrophy, therefore his 2 children check in on him. His daughter is present at bedside and notes that they have been looking into more help at home recently. The daughter would appreciate case management to assist with discharge planning. Upon presentation to the ER patient's SBP was equal to 70, improved to 90 with administration of 1 L NSS Patient was also noted to be in A. fib with heart rate of 110 Lactic acid =2.0 Blood cultures and urine cultures have been obtained and he was started on cefepime IV Admission Exam Per Admitting Provider General: awake, alert, no apparent distress, + thin Head: Normocephalic, atraumatic ENT: PERRL, EOMI, no pharyngeal exudate, mucous membranes moist Chest: Clear to auscultation, on room air, no adventitious breath sounds Cardiac: irregularly irregular, + HR around 105 at bedside, no murmur, no JVD, normal peripheral pulses, good capillary refill Abdominal: NABS x 4 quadrants, soft, nontender to palpation, no rebound, guarding or tenderness, + chronic indwelling tong with cloudy yellow urine, no clot Extremities: Normal inspection, no peripheral edema or erythema, calfs nontender to palpation Psych: Normal mood and affect Neuro: AAO x 3, no motor deficits, speech is clear Principal Diagnosis Sepsis and hypotension, UTI related to Shanna albicans Discharge Exam General: Resting comfortably HEENT: NC/AT; PERRLA with EOMI; [place] conjunctiva, MMM. No erythema of posterior pharynx Neck: Supple and nontender Cardiac: RRR Lungs: CTA bilaterally Abdomen: Bowel normoactive X 4; Nontender to palpation Extremities: Warm. No edema present Neuro: No focal weakness Skin: No rash Discharge Data Allergies Allergy/AdvReac Type Severity Reaction Status Date / Time tamsulosin Allergy Unknown Unknown Verified 07/01/19 13:56 cilostazol AdvReac Unknown dizziness, Verified 07/01/19 13:56 palpitations diltiazem AdvReac Unknown dizziness, Verified 07/01/19 13:56 palpitations simvastatin AdvReac Unknown dizziness Verified 07/01/19 13:56 Consultations 07/01/19 15:14 ED Decision to Admit Stat 07/01/19 18:09 Consult Case Management - Discharge Planning Routine Ordered Studies CXR 07/01 KUB 07/02 Hospital Course (1) Sepsis: Hypotensive with leukocytosis, elevated lactic acid level at admission -- likely related to UTI vs. COPD. Received IV fluid hydration with improvement. Received Levaquin x 2 days; started Fluconazole on 07/02. (2) Hypotension: Related to underlying sepsis; now resolving. Continued beta alan in setting of A. fib; hold home Lisinopril -- will need to discuss resuming this med with PCP. Instructed pt. to take BP 1-2x/day at home and record all readings prior to PCP appt. (3) UTI (urinary tract infection): In setting of chronic indwelling tong -- possible tong catheter associated UTI causing sepsis. U/a was positive, UC+Shanna albicans. Received Levaquin x 2 days, now d/c'ed. Started Fluconazole on 07/02, will need to complete full course due to chronic indwelling tong. (4) COPD (chronic obstructive pulmonary disease): Concern for acute exacerbation due to sputum production on day of discharge. CXR was negative on day of admission. Will start Augmentin x 7 days and Prednisone taper. Continued home Duoneb TID ATC, Singulair, Spiriva & Dulera as prescribed. (5) Atrial fibrillation with RVR: A. fib with RVR on admission; converted to NSR on 07/02. Continued Metoprolol as prescribed to avoid rebound tachycardia. Continued home Eliquis 2.5 mg BID. (6) Anticoagulant long-term use: Continued NOAC as noted above. (7) Chronic respiratory failure with hypoxia: Chronically requires 2L via NC - on home requirements. (8) BPH (benign prostatic hyperplasia): Follows with [facility]; chronic indwelling tong was exchanged on day of admission. Cannot tolerate Flomax due to h/o orthostasis. (9) Chronic kidney disease, stage 3: Renally dosed all meds, renal function currently at baseline. (10) Chronic diastolic heart failure: Echo in January 2019 showed EF 55%, no significant valvular abnormalities. Continued home Metoprolol. Holding home Lasix and Lisinopril in setting of hypotension - discuss resuming with PCP as outpt. (11) Hyperlipidemia: Continued Pravastatin 20 mg QPM. (12) Hypertension: Holding home ACEI; continue Metoprolol as prescribed. F/u PCP to discuss resuming Lisinopril -- instructed pt. to take BP 1-2x/day and record all readings. (13) Chronic indwelling Tong catheter: Has chronic indwelling tong; scheduled to follow up with Dr. Irizarry on Friday. KUB was completed prior to appt. (14) Anemia: Macrocytic anemia on labs; most recent folate/B12 studies indicated a deficiency requiring replacement. Continued Folate 1 mg PO daily and daily B12 replacement. (15) Constipation: KUB showed moderate stool burden in the rectum. Had BM during this admission. (16) DVT prophylaxis: Eliquis BID. Discharged with home health services on 07/03/19. Total Time Total Time Spent Total Time Spent (In Minutes): >30 minutes Total Time Includes: Examination of the Patient, Discharge Planning, Medication Reconciliation, Communication With Other Providers and Other Discharge Plan Discharge Items Patient Disposition: Home - Home Health Services Reason For Visit: LIGHTHEADEDNESS,AFIB WITH RVR,HYPOTENSIVE Discharge Diagnosis: Sepsis, Hypotension, Urinary Tract Infection, Atrial Fibrillation with rapid ventricular response Condition on Discharge: Fair Activity: As commented below Exercise/Sports: Gradually increase as tolerated Non-emergency contact: Primary Care Provider and Urologist Call non-emergency contact if: you have any medication questions, your symptoms worsen, your pain is not controlled, your pain is worsening, your pain is unusual for you, your pain is concerning for you and you have a fever Follow-up/Referrals: Guerrero Morse MD [Primary Care Provider] - Diet: Heart Healthy Addtl Attending Provider Instructions: 1. Sepsis and hypotension related to urinary tract infection * Please continue Fluconazole 100 mg daily to complete a 7 day course for treatment of UTI - prescription was sent to your pharmacy. * Please follow up with urology as scheduled on Friday; KUB XR was completed as inpt prior to appt. * Continue Metoprolol as prescribed. * Continue to hold Lisinopril and Lasix in setting of low blood pressure -- discuss resuming these medications with your primary care provider at follow up appointment. 2. COPD Exacerbation * Please take Augmentin twice daily to complete a 7 day course. * Please take a Prednisone taper as follows: - 60 mg (3 tablets) daily on 07/04. - 50 mg (2.5 tablets) daily on 07/05. - 40 mg (2 tablets) daily on 07/06. - 30 mg (1.5 tablets) daily on 07/07. - 20 mg (1 tablet) daily on 07/08. - 10 mg (0.5 tablet) daily on 07/09 then discontinue. * Continue home nebulizers and inhalers as prescribed. 3. Home health has been arranged for additional services/aid following discharge. 4. Please schedule follow up with primary care provider in 7-10 days following discharge to discuss this admission. Pending Studies at Discharge: No Stand-Alone Forms: My [facility] Medications and DC Order Prescriptions: New amoxicillin-pot clavulanate [Augmentin] 875-125 mg tablet 1 tab PO BID Qty: 14 RF: 0 prednisone 20 mg tablet 60 mg PO DAILY Qty: 11 RF: 0 Continued ipratropium-albuterol 0.5 mg-3 mg(2.5 mg base)/3 mL solution for nebulization 3 ml Inhalation TID Qty: 180 RF: 5 montelukast 10 mg tablet 10 mg PO QAM Qty: 30 RF: 5 tiotropium bromide 18 mcg capsule, w/inhalation device 1 cap Inhalation DAILY Qty: 30 RF: 5 oxycodone 5 mg tablet 5 mg PO HS Qty: 30 RF: 0 cholecalciferol (vitamin D3) [Vitamin D3] 2,000 unit capsule 2,000 units PO DAILY Qty: 30 RF: 0 levalbuterol tartrate 45 mcg/actuation HFA aerosol inhaler 1 puffs INH Q6H PRN (Reason: shortness of breath) RF: 0 folic acid 1 mg tablet 1 mg PO QAM Qty: 30 RF: 5 docusate sodium [Stool Softener] 100 mg tablet 100 mg PO BID PRN (Reason: Constipation) RF: 0 Dulera 200-5 mcg/actuation Hfa Aerosol Inhaler 1 puff INHALATION Q12H RF: 0 Eliquis 2.5 mg tablet 2.5 mg PO BID RF: 0 acetaminophen 325 mg tablet 650 mg PO Q6H PRN (Reason: Fever Or Pain) RF: 0 polyethylene glycol 3350 [Miralax] 17 gram Powder In Packet 17 g PO DAILY Qty: 30 RF: 0 cyanocobalamin (vitamin B-12) 1,000 mcg capsule 1,000 mcg PO DAILY Qty: 30 RF: 0 benzonatate 100 mg capsule 100 mg PO DAILY RF: 0 pravastatin 20 mg tablet 20 mg PO QPM RF: 0 albuterol sulfate 90 mcg/actuation HFA aerosol inhaler 2 puff inhalation Q4H PRN (Reason: Shortness Of Breath Or Wheezing) RF: 0 metoprolol succinate 50 mg tablet extended release 24 hr 50 mg PO QAM RF: 0 guaifenesin [Mucinex] 600 mg tablet extended release 12hr 1,200 mg PO BID RF: 0 Discontinued lisinopril 20 mg tablet 20 mg PO DAILY Qty: 90 RF: 3 furosemide 40 mg tablet 20 mg PO Q2D RF: 0 potassium chloride [Klor-Con M20] 20 mEq tablet,ER particles/crystals 20 meq PO Q2D RF: 0 No Action fluticasone propionate 50 mcg/actuation spray,suspension 2 sprays INTNAS DAILY Qty: 16 RF: 0 dutasteride 0.5 mg capsule 0.5 mg PO DAILY RF: 0 potassium chloride [Klor-Con] 20 mEq packet 20 meq PO DAILY RF: 0 furosemide 40 mg tablet 40 mg PO DAILY PRN (Reason: weight gain) RF: 0 Discharge Orders: Discharge Order (Routine); Ordered 07/03/19 Ordered By: Anne Stevens/Other Patient Handouts: Amoxicillin Trihydrate Clavulanate Potassium Oral tablet extended-release, Fluconazole Oral tablet, Prednisone Oral tablet, UTI Admission Data Admit Date/Time: 07/01/19 16:51 Attending Provider: Villa Marquez Admit Provider: Sisi Turner Primary Care Provider: Guerrero Morse Other Interventions: Discharge Summary Assessment (RN) Last Done: 07/03/19 13:50 DC Date/Time DO NOT enter until pt leaves facility: 07/03/19 14:29 Supervising Physician Co-Signing Physician Notes During my face to face encounter, I performed a history of his hospital stay and physical examination on the patient. I answered all of the patient s questions and concerns. Discussed discharge plan with patient and APC. Given possibility that patient may have COPD exacerbation, given his sputum production. Will discharge on prednisone taper and augmentin.
[2019-07-03] MEDS ORDERED: FLUCONAZOLE 100 MG/50 ML BAG IV SCH (16:00)
== END 2019-07-03 14:29 | disposition home health service (06) | DRG 698 ==
LOC: ED 13:06 → SUATTDRO 16:51 → 2S 16:51
DX: Z82.49 Family history of ischemic heart disease and other diseases of the circulatory system; B37.49 Other urogenital candidiasis; J45.909 Unspecified asthma, uncomplicated; E78.5 Hyperlipidemia, unspecified; N18.3 Chronic kidney disease, stage 3 (moderate); Z68.1 Body mass index [BMI] 19.9 or less, adult; Z79.51 Long term (current) use of inhaled steroids; Z79.891 Long term (current) use of opiate analgesic; I73.9 Peripheral vascular disease, unspecified; Z87.891 Personal history of nicotine dependence; I13.0 Hypertensive heart and chronic kidney disease with heart failure and stage 1 through stage 4 chronic kidney disease, or unspecified chronic kidney disease; R64 Cachexia; J43.9 Emphysema, unspecified; Z79.899 Other long term (current) drug therapy; Z79.01 Long term (current) use of anticoagulants; I50.32 Chronic diastolic (congestive) heart failure; K59.00 Constipation, unspecified; I48.0 Paroxysmal atrial fibrillation; E53.8 Deficiency of other specified B group vitamins; N40.1 Benign prostatic hyperplasia with lower urinary tract symptoms; Z51.81 Encounter for therapeutic drug level monitoring; R33.8 Other retention of urine; J96.11 Chronic respiratory failure with hypoxia; A41.9 Sepsis, unspecified organism; R63.6 Underweight; Z88.8 Allergy status to other drugs, medicaments and biological substances; T83.511A Infection and inflammatory reaction due to indwelling urethral catheter, initial encounter; Z99.81 Dependence on supplemental oxygen; E55.9 Vitamin D deficiency, unspecified; D53.9 Nutritional anemia, unspecified

== ENCOUNTER 2020-03-31 16:00 | Inpatient (IN) ==
--- NOTE | 2020-03-31 16:50 | XRay Report ---
XR chest 1V portable CLINICAL HISTORY: SEPSIS dyspnea COMPARISON STUDY: 09/13/2019 FINDINGS: Diffuse chronic parenchymal fibrosis. Potential superimposed interstitial infiltrate left b ase. Pulmonary apices are clear. Mild stable cardiomegaly. IMPRESSION: 1. Interstitial infiltrate left base. 2. Chronic change. ACT 112: Negative or not required by law. The above report was generated using voice recognition software. It may contain grammatical, syntax or spelling errors. Electronically signed by: Derrek Watkins M.D. 03/31/2020 4:48 PM
[2020-03-31 16:52] LABS: Basophils # (auto) 0.02 K/uL (0-0.2); Basophils % (auto) 0.1 %; Eosinophils # (auto) 0.02 K/uL (0-0.5); Eosinophils % (auto) 0.1 %; Hematocrit (blood only) 31.6 % (42-52); Hemoglobin 10.1 g/dL (14.0-18.0); Immature Granulocytes # (auto) 0.14 K/uL (0.00-0.02); Immature Granulocytes % (auto) 0.9 %; Lymphocytes # (auto) 1.06 K/uL (1.2-3.4); Lymphocytes % (auto) 6.7 %; Mean Corpuscular Hemoglobin 31.3 pg (25-34); Mean Corpuscular Volume 97.8 fL (80-100); Mean Platelet Volume 9.5 fL (7.4-10.4); Monocytes # (auto) 0.86 K/uL (0.11-0.59); Monocytes % (auto) 5.4 %; Neutrophils # (auto) 13.77 K/uL (1.4-6.5); Neutrophils % (auto) 86.8 %; Platelet Count 331 K/uL (130-400); RDW Coefficient of Variation 14.6 % (11.5-14.5); RDW Standard Deviation 52.3 fL (36.4-46.3); Red Blood Count 3.23 M/uL (4.7-6.1); White Blood Count 15.87 K/uL (4.8-10.8)
--- NOTE | 2020-03-31 16:57 | Emergency Department Note ---
History of Present Illness General Chief complaint: Urinary Symptoms Time Seen by Provider: 03/31/20 16:11 Source: patient and EMS Mode of arrival: ambulatory Limitations: no limitations History of Present Illness This patient is an 85-year-old white male who is sent in by his doctor's office after having a Pseudomonas UTI that they think he needs IV antibiotics for. He did have antibiotics last week. He said on Friday he did feel lightheaded but he feels fine today. No chest pain or shortness of breath no COVID symptoms or exposure. No lower extremity pain or swelling no focal numbness or weakness. He was actually supposed to go to the ATU to get a PICC line but did not make it here in time he came to the emergency department. He has no complaints at present Home Medications Home Medications Medication Instructions Recorded Confirmed Type pravastatin 20 mg tablet 20 mg PO QPM #90 tab 08/03/19 03/31/20 Rx apixaban 2.5 mg tablet 2.5 mg PO BID #180 tab 08/26/19 03/31/20 Rx albuterol sulfate 2 puff INHALATION QID PRN 09/13/19 03/31/20 History cholecalciferol (vitamin D3) 2,000 units PO QAM 10/03/19 03/31/20 History [Vitamin D3] cyanocobalamin (vitamin B-12) 1,000 mcg PO QAM 10/03/19 03/31/20 History prednisone 10 mg PO QAM 10/03/19 03/31/20 History montelukast 10 mg tablet 10 mg PO QAM #90 tab 10/20/19 03/31/20 Rx mometasone-formoterol HFA 200 1 puff INHALATION Q12H #13 gm 11/08/19 03/31/20 Rx mcg-5 mcg/actuation aerosol inhaler ipratropium 0.5 mg-albuterol 3 mg 3 ml INHALATION TID #180 ml 01/17/20 03/31/20 Rx (2.5 mg base)/3 mL nebulization soln furosemide 40 mg tablet 20 mg PO Q2D #30 tab 01/24/20 03/31/20 Rx nitrofurantoin macrocrystal 50 mg 50 mg PO QAM #30 cap 01/24/20 03/31/20 Rx capsule sodium chloride 7 % for 4 ml INH BID #240 ml 02/23/20 03/31/20 Rx nebulization metoprolol succinate 50 mg 50 mg PO QAM #90 tab 02/24/20 03/31/20 Rx tablet,extended release 24 hr potassium chloride 10 mEq 10 meq PO Q2D #30 cap 03/09/20 03/31/20 Rx capsule,extended release tiotropium bromide 2.5 2 puffs INHALATION DAILY #4 ml 03/21/20 03/31/20 Rx mcg/actuation mist for inhalation ciprofloxacin HCl 250 mg tablet 250 mg PO BID #20 tab 03/30/20 03/31/20 Rx benzonatate 100 mg PO BID PRN 03/31/20 03/31/20 History diphenhydramine HCl [Benadryl] 25 mg PO HS 03/31/20 03/31/20 History folic acid 800 mcg PO QAM 03/31/20 03/31/20 History guaifenesin [Mucinex] 600 mg PO BID 03/31/20 03/31/20 History lorazepam 0.5 mg PO DAILY PRN 03/31/20 03/31/20 History melatonin 10 mg PO HS 03/31/20 03/31/20 History oxycodone 5 mg PO HS 03/31/20 03/31/20 History Allergies Allergy/AdvReac Type Severity Reaction Status Date / Time tamsulosin Allergy Unknown Unknown Verified 03/16/20 09:22 cilostazol AdvReac Intermediate dizziness, Verified 04/01/20 08:25 palpitations diltiazem AdvReac Intermediate dizziness, Verified 04/01/20 08:25 palpitations simvastatin AdvReac Mild dizziness Verified 04/01/20 08:25 Past Med/Surg History Medical History Actinic keratosis (Acute) Anemia (Acute) Ankle edema, bilateral Pt admits to eating salty snacks lately. Advised to avoid salt. Asthma Benign prostatic hyperplasia with urinary obstruction (Acute) Eda disease (Acute) Cachexia Carotid artery plaque (Acute) <50% stenosis of internal carotids B/L by 2017 doppler Chronic diastolic heart failure 2+ ankle edema on exam at [facility] Chronic kidney disease, stage 3 Enlarged prostate Hematuria 2/2 renal calculi Hyperlipidemia Hypertension Indwelling Venegas catheter present Insomnia (Acute) Leukocytosis (Acute) Nephrolithiasis (Acute) On home oxygen therapy 2lpm via n/c PAD (peripheral artery disease) (Acute) Paroxysmal atrial fibrillation Dx 07/28/18 during admission for COPD exacerbation. Initially in RVR, but spontaneously converted; started on Metoprolol and Eliquis. Eliquis discontinued during admission 03/08/19 due to hematuria. Pulmonary emphysema (Acute) Pulmonary nodule (Acute) Sinus tachycardia (Acute) UTI (urinary tract infection) (Acute) Vitamin D deficiency (Acute) Weight loss (Acute) Surgical History History of appendectomy History of colonoscopy History of cystoscopy WITH STENT, during admission 03/2019 History of lithotripsy History of tonsillectomy Hx of transurethral resection of prostate Family History Mother Cancer thyroid Brother Myocardial infarction Prostate cancer Father No problems noted. Other Family history non-contributory No significant family history Denies family history of Stroke Social History Preferred Language: Kyrgyz Communication Ability: Effective [employer] Required: No Beliefs That Will Affect Care: None marital status: Current Living Situation: Spouse Current Living Situation Comment: currently has home health services current occupational status: retired Feels Safe at Home: Yes Smoking Status: Former smoker Tobacco Type: cigarettes ; Cigarettes Per Day: 20 ; Second Hand Exposure: No ; Hx Alcohol Use: No Hx Substance Use: No Seatbelt Use: always Sunscreen Use: Yes Review of Systems A total of 10 systems reviewed and were otherwise negative Physical Exam Vital Signs Vital Signs - 24 hr 03/31/20 16:20 Temperature 36.7 C Temperature Source Oral Pulse Rate 95 H Respiratory Rate 20 Blood Pressure 150/98 H Blood Pressure Mean 115 Pulse Oximetry 98 Oxygen Delivery Method Nasal Cannula Oxygen Flow Rate 3 Sepsis Recent Fever Within 48 Hours No Sepsis Action Taken by Nursing No Action Required General: Well developed well nourished male who appears in in no acute distress, breathing comfortably on room air. Normal speech HEENT: Normal cephalic atraumatic. Pupils are equal round and reactive to light. Extraocular movements are intact. Oropharynx is pink with moist mucous membranes. No swelling of the mouth lips or tongue. Neck: Supple with a midline trachea. No meningeal signs or stiffness, no JVD or bruits. No Stridor. Chest: Clear to auscultation bilaterally. No wheezes or rhonchi. No increased work of breathing. Heart: Regular rate and rhythm without murmurs or gallops. Abdomen: Soft nontender, nondistended without rebound guarding or rigidity. The catheter in place with yellow urine seen in the catheter bag Extremities: No cyanosis clubbing or edema. No calf tenderness or assymetry Spine/Back. Non tender to palpation. No CVA tenderness Skin: Good turgor without rashes. Neurologic exam: Cranial nerves two through 12 are intact. Motor and sensation are intact and symmetrical throughout. Course Administered Medications Acetaminophen (Tylenol) 650 mg PO Q4H PRN PRN Reason: Pain or Fever Stop: 04/30/20 21:41 Last Admin: 04/04/20 06:09 Dose: 650 mg Documented by: [id number] Admin: 04/03/20 16:49 Dose: 650 mg Documented by: [id number] Admin: 04/02/20 11:08 Dose: 650 mg Documented by: [id number] Admin: 04/01/20 06:09 Dose: 650 mg Documented by: [id number] Albuterol (Duoneb) 3 ml INH TIDR MARS Stop: 05/01/20 06:59 Last Admin: 04/04/20 06:52 Dose: 3 ml Documented by: [id number] Admin: 04/03/20 19:27 Dose: 3 ml Documented by: [id number] Admin: 04/03/20 12:55 Dose: 3 ml Documented by: [id number] Admin: 04/03/20 07:04 Dose: 3 ml Documented by: [id number] Admin: 04/02/20 19:34 Dose: 3 ml Documented by: [id number] Admin: 04/02/20 12:53 Dose: 3 ml Documented by: [id number] Admin: 04/02/20 06:58 Dose: 3 ml Documented by: [id number] Admin: 04/01/20 19:28 Dose: 3 ml Documented by: [id number] Admin: 04/01/20 12:49 Dose: 3 ml Documented by: [id number] Admin: 04/01/20 07:24 Dose: 3 ml Documented by: [id number] Apixaban (Eliquis) 2.5 mg PO BID [facility] Stop: 04/30/20 22:59 Last Admin: 04/04/20 07:42 Dose: 2.5 mg Documented by: [id number] Admin: 04/03/20 22:04 Dose: 2.5 mg Documented by: [id number] Admin: 04/03/20 08:17 Dose: 2.5 mg Documented by: [id number] Admin: 04/02/20 22:05 Dose: 2.5 mg Documented by: [id number] Admin: 04/02/20 09:51 Dose: 2.5 mg Documented by: [id number] Admin: 04/01/20 22:00 Dose: 2.5 mg Documented by: [id number] Admin: 04/01/20 09:17 Dose: 2.5 mg Documented by: [id number] Admin: 03/31/20 23:49 Dose: 2.5 mg Documented by: [id number] Benzonatate (Tessalon Perle) 100 mg PO BID PRN PRN Reason: Cough Stop: 04/30/20 21:41 Last Admin: 04/01/20 00:26 Dose: 100 mg Documented by: [id number] Fluticasone/Vilanterol (Breo Ellipta 100/25 Mcg Inh) 1 puffs INH DAILY [facility] Stop: 05/01/20 08:59 Last Admin: 04/04/20 07:40 Dose: 1 puffs Documented by: [id number] Admin: 04/03/20 08:18 Dose: 1 puffs Documented by: [id number] Admin: 04/02/20 09:50 Dose: 1 puffs Documented by: [id number] Admin: 04/01/20 09:11 Dose: 1 puffs Documented by: [id number] Folic Acid (Folvite) 800 mcg PO QAM MARS Stop: 05/01/20 08:59 Last Admin: 04/04/20 07:43 Dose: 800 mcg Documented by: [id number] Admin: 04/03/20 08:17 Dose: 800 mcg Documented by: [id number] Admin: 04/02/20 09:51 Dose: 800 mcg Documented by: [id number] Admin: 04/01/20 09:17 Dose: 800 mcg Documented by: [id number] Guaifenesin (Mucinex) 600 mg PO BID [facility] Stop: 04/30/20 22:59 Last Admin: 04/04/20 07:42 Dose: 600 mg Documented by: [id number] Admin: 04/03/20 22:05 Dose: 600 mg Documented by: [id number] Admin: 04/03/20 08:17 Dose: 600 mg Documented by: [id number] Admin: 04/02/20 22:05 Dose: 600 mg Documented by: [id number] Admin: 04/02/20 09:51 Dose: 600 mg Documented by: [id number] Admin: 04/01/20 22:00 Dose: 600 mg Documented by: [id number] Admin: 04/01/20 09:17 Dose: 600 mg Documented by: [id number] Admin: 03/31/20 23:49 Dose: 600 mg Documented by: [id number] Heparin Sodium (Beef Lung) (Heparin Sod 10 Unit/Ml Flush) 5 ml FLUSH PRN PRN PRN Reason: Flush Stop: 05/01/20 00:34 Last Admin: 04/04/20 06:45 Dose: 5 ml Documented by: [id number] Admin: 04/03/20 20:27 Dose: 5 ml Documented by: [id number] Admin: 04/03/20 06:50 Dose: 5 ml Documented by: [id number] Admin: 04/02/20 07:54 Dose: 5 ml Documented by: [id number] Admin: 04/01/20 20:37 Dose: 5 ml Documented by: [id number] Admin: 04/01/20 10:03 Dose: 5 ml Documented by: [id number] Hydrocortisone (Hydrocortisone 1%) 1 appln EXT TID PRN PRN Reason: severe/refractory itching Stop: 05/02/20 17:56 Last Admin: 04/03/20 03:25 Dose: 1 appln Documented by: [id number] Admin: 04/02/20 22:05 Dose: 1 appln Documented by: [id number] Ceftazidime 2,000 mg/ Dextrose 60 mls @ 120 mls/hr IV Q12H MARS Stop: 04/11/20 06:59 Last Infusion: 04/04/20 06:41 Dose: 0 mls/hr Documented by: [id number] Admin: 04/04/20 06:11 Dose: 120 mls/hr Documented by: [id number] Infusion: 04/03/20 21:08 Dose: 0 mls/hr Documented by: [id number] Admin: 04/03/20 19:47 Dose: 120 mls/hr Documented by: [id number] Magnesium Hydroxide (Milk Of Magnesia) 30 ml PO Q12H PRN PRN Reason: Constipation Stop: 04/30/20 21:41 Last Admin: 04/03/20 08:14 Dose: 30 ml Documented by: [id number] Admin: 04/02/20 15:21 Dose: 30 ml Documented by: [id number] Melatonin (Melatonin) 9 mg PO [facility] Stop: 05/02/20 20:59 Last Admin: 04/03/20 22:05 Dose: 9 mg Documented by: [id number] Admin: 04/02/20 22:04 Dose: 9 mg Documented by: [id number] Metoprolol Succinate (Toprol Xl) 50 mg PO [facility] Stop: 05/01/20 08:59 Last Admin: 04/04/20 07:42 Dose: 50 mg Documented by: [id number] Admin: 04/03/20 08:15 Dose: 50 mg Documented by: [id number] Admin: 04/02/20 09:51 Dose: 50 mg Documented by: [id number] Admin: 04/01/20 09:17 Dose: 50 mg Documented by: [id number] Montelukast Sodium (Singulair) 10 mg PO [facility] Stop: 05/01/20 08:59 Last Admin: 04/04/20 07:41 Dose: 10 mg Documented by: [id number] Admin: 04/03/20 08:17 Dose: 10 mg Documented by: [id number] Admin: 04/02/20 09:51 Dose: 10 mg Documented by: [id number] Admin: 04/01/20 09:17 Dose: 10 mg Documented by: [id number] Multi-Ingredient Cream (Hydrocerin) 1 appln EXT QID PRN PRN Reason: Itching Stop: 05/02/20 17:56 Last Admin: 04/04/20 03:37 Dose: 1 appln Documented by: [id number] Nystatin (Mycostatin) 1 appln EXT Q8H [facility] Stop: 05/02/20 11:14 Last Admin: 04/04/20 09:52 Dose: 1 appln Documented by: [id number] Admin: 04/04/20 03:35 Dose: 1 appln Documented by: [id number] Admin: 04/03/20 18:55 Dose: 1 appln Documented by: [id number] Admin: 04/03/20 12:03 Dose: 1 appln Documented by: [id number] Admin: 04/03/20 03:25 Dose: 1 appln Documented by: [id number] Admin: 04/02/20 18:38 Dose: 1 appln Documented by: [id number] Admin: 04/02/20 14:11 Dose: 1 appln Documented by: [id number] Oxycodone HCl (Roxicodone Immediate Rel) 5 mg PO HS [facility]ARS Stop: 04/14/20 22:29 Last Admin: 04/03/20 22:04 Dose: 5 mg Documented by: [id number] Admin: 04/02/20 22:05 Dose: 5 mg Documented by: [id number] Admin: 04/01/20 22:00 Dose: 5 mg Documented by: [id number] Admin: 03/31/20 23:47 Dose: 5 mg Documented by: [id number] Polyethylene Glycol (Miralax Powder Packet) 17 gm PO DAILY [facility] Stop: 05/01/20 08:59 Last Admin: 04/04/20 07:43 Dose: Not Given Documented by: [id number] Admin: 04/03/20 08:14 Dose: 17 gm Documented by: [id number] Admin: 04/02/20 09:51 Dose: 17 gm Documented by: [id number] Admin: 04/01/20 09:52 Dose: 17 gm Documented by: [id number] Potassium Chloride (Klor-Con M10) 10 meq PO Q2D [facility] Stop: 05/01/20 08:59 Last Admin: 04/03/20 08:17 Dose: 10 meq Documented by: [id number] Admin: 04/01/20 09:17 Dose: Not Given Documented by: [id number] Pravastatin Sodium (Pravachol) 20 mg PO QPM [facility] Stop: 04/30/20 22:59 Last Admin: 04/03/20 22:04 Dose: 20 mg Documented by: [id number] Admin: 04/02/20 22:05 Dose: 20 mg Documented by: [id number] Admin: 04/01/20 22:00 Dose: 20 mg Documented by: [id number] Admin: 03/31/20 23:48 Dose: 20 mg Documented by: [id number] Prednisone (Prednisone) 10 mg PO QAM [facility]ARS Stop: 05/01/20 08:59 Last Admin: 04/04/20 07:42 Dose: 10 mg Documented by: [id number] Admin: 04/03/20 08:17 Dose: 10 mg Documented by: [id number] Admin: 04/02/20 09:51 Dose: 10 mg Documented by: [id number] Admin: 04/01/20 09:17 Dose: 10 mg Documented by: [id number] Sodium Chloride (Sodium Chlor 7% Neb Solution) 4 ml INH BIDR MARS Stop: 04/30/20 22:59 Last Admin: 04/04/20 06:52 Dose: 4 ml Documented by: [id number] Admin: 04/03/20 19:13 Dose: 4 ml Documented by: [id number] Admin: 04/03/20 07:05 Dose: 4 ml Documented by: [id number] Admin: 04/02/20 19:21 Dose: 4 ml Documented by: [id number] Admin: 04/02/20 06:58 Dose: 4 ml Documented by: [id number] Admin: 04/01/20 19:20 Dose: 4 ml Documented by: [id number] Admin: 04/01/20 07:24 Dose: 4 ml Documented by: [id number] Admin: 03/31/20 22:15 Dose: 4 ml Documented by: [id number] Sodium Chloride ([place] Nasal) 1 sprays NA NOW PRN PRN Reason: Dryness Stop: 05/01/20 16:16 Last Admin: 04/01/20 16:26 Dose: 1 sprays Documented by: [id number] Trazodone HCl (Desyrel) 50 mg PO HS PRN PRN Reason: Insomnia Stop: 04/30/20 21:41 Last Admin: 04/03/20 03:24 Dose: 50 mg Documented by: [id number] Umeclidinium Snowflake (Incruse Ellipta) 1 puffs INH DAILY [facility] Stop: 05/01/20 08:59 Last Admin: 04/04/20 07:41 Dose: 1 puffs Documented by: [id number] Admin: 04/03/20 08:18 Dose: 1 puffs Documented by: [id number] Admin: 04/02/20 09:49 Dose: 1 puffs Documented by: [id number] Admin: 04/01/20 09:11 Dose: 1 puffs Documented by: [id number] Discontinued Medications Diphenhydramine HCl (Benadryl Capsule) 25 mg PO NOW ONE Stop: 04/01/20 00:15 Last Admin: 04/01/20 00:26 Dose: 25 mg Documented by: [id number] Diphenhydramine HCl (Benadryl Capsule) 25 mg PO NOW ONE Stop: 04/01/20 20:49 Last Admin: 04/01/20 21:59 Dose: 25 mg Documented by: [id number] Ceftazidime 1,000 mg/ Dextrose 50 mls @ 100 mls/hr IV NOW STA Stop: 03/31/20 18:23 Last Infusion: 03/31/20 19:29 Dose: 0 mls/hr Documented by: [id number] Admin: 03/31/20 18:52 Dose: 100 mls/hr Documented by: [id number] Ceftazidime 1,000 mg/ Dextrose 50 mls @ 100 mls/hr IV Q12H MARS; Protocol Stop: 04/11/20 06:59 Last Infusion: 04/03/20 06:46 Dose: 0 mls/hr Documented by: [id number] Admin: 04/03/20 06:15 Dose: 100 mls/hr Documented by: [id number] Infusion: 04/02/20 19:14 Dose: 0 mls/hr Documented by: [id number] Admin: 04/02/20 18:33 Dose: 100 mls/hr Documented by: [id number] Infusion: 04/02/20 07:56 Dose: 0 mls/hr Documented by: [id number] Admin: 04/02/20 07:07 Dose: 100 mls/hr Documented by: [id number] Infusion: 04/01/20 20:35 Dose: 0 mls/hr Documented by: [id number] Admin: 04/01/20 19:51 Dose: 100 mls/hr Documented by: [id number] Infusion: 04/01/20 06:36 Dose: 0 mls/hr Documented by: [id number] Admin: 04/01/20 06:06 Dose: 100 mls/hr Documented by: [id number] Melatonin (Melatonin) 6 mg PO HS [facility] Stop: 04/30/20 22:59 Last Admin: 04/01/20 22:00 Dose: 6 mg Documented by: [id number] Admin: 03/31/20 23:48 Dose: 6 mg Documented by: [id number] Polyethylene Glycol (Miralax Powder Packet) 34 gm PO 0945 ONE Stop: 04/02/20 09:46 Last Admin: 04/02/20 09:51 Dose: 34 gm Documented by: [id number] Medical Decision Making Differential Diagnosis UTI, sepsis, pyelonephritis, cardiac disease, electrolyte or metabolic abnormality Medical Records Attestation: I reviewed the patient's medical records. Laboratory Data Attestation: I reviewed the patient's lab results. Result diagrams: 04/04/20 06:07 04/04/20 06:07 Lab Results 03/31/20 03/31/20 03/31/20 Range/Units 16:39 16:39 16:39 WBC 15.87 H (4.8-10.8) K/uL RBC 3.23 L (4.7-6.1) M/uL Hgb 10.1 L (14.0-18.0) g/dL Hct 31.6 L (42-52) % MCV 97.8 (80-100) fL MCH 31.3 (25-34) pg MCHC 32.0 (32-36) g/dL RDW Std Deviation 52.3 H (36.4-46.3) fL RDW Coeff of Ashley 14.6 H (11.5-14.5) % Plt Count 331 (130-400) K/uL MPV 9.5 (7.4-10.4) fL Immature Gran % (Auto) 0.9 % Neut % (Auto) 86.8 % Lymph % (Auto) 6.7 % [place] % (Auto) 5.4 % Eos % (Auto) 0.1 % Baso % (Auto) 0.1 % Neut # (Auto) 13.77 H (1.4-6.5) K/uL Lymph # (Auto) 1.06 L (1.2-3.4) K/uL [place] # (Auto) 0.86 H (0.11-0.59) K/uL Eos # (Auto) 0.02 (0-0.5) K/uL Baso # (Auto) 0.02 (0-0.2) K/uL Immature Gran # (Auto) 0.14 H (0.00-0.02) K/uL PT 11.1 (9.0-12.0) Seconds INR 1.1 (0.9-1.1) APTT 30.2 (21.0-31.0) Seconds PTT Ratio 1.1 Sodium 136 (136-145) mmol/L Potassium 4.9 (3.5-5.1) mmol/L Chloride 103 (98-107) mmol/L Carbon Dioxide 28 (21-32) mmol/L Anion Gap 5.0 (3-11) BUN 22 H (7-18) mg/dl Creatinine 1.41 H (0.6-1.4) mg/dl Est Cr Clr Drug Dosing 36.2 ml/min Est GFR ( Amer) 52.3 Est GFR (Non-Af Amer) 45.1 BUN/Creatinine Ratio 15.5 (10-20) Glucose 109 H (70-99) mg/dl Lactate (0.4-2.0) mmol/L Calcium 9.8 (8.5-10.1) mg/dl Magnesium 2.0 (1.8-2.4) mg/dl Total Bilirubin 0.3 (0.2-1) mg/dl AST 15 (15-37) U/L ALT 23 (12-78) U/L Alkaline Phosphatase 82 (45-117) U/L Total Protein 7.3 (6.4-8.2) gm/dl Albumin 2.9 L (3.4-5.0) gm/dl Globulin 4.4 H (2.5-4.0) gm/dl Albumin/Globulin Ratio 0.7 L (0.9-2) / Range/Units 16:39 WBC (4.8-10.8) K/uL RBC (4.7-6.1) M/uL Hgb (14.0-18.0) g/dL Hct (42-52) % MCV (80-100) fL MCH (25-34) pg MCHC (32-36) g/dL RDW Std Deviation (36.4-46.3) fL RDW Coeff of Ashley (11.5-14.5) % Plt Count (130-400) K/uL MPV (7.4-10.4) fL Immature Gran % (Auto) % Neut % (Auto) % Lymph % (Auto) % [place] % (Auto) % Eos % (Auto) % Baso % (Auto) % Neut # (Auto) (1.4-6.5) K/uL Lymph # (Auto) (1.2-3.4) K/uL [place] # (Auto) (0.11-0.59) K/uL Eos # (Auto) (0-0.5) K/uL Baso # (Auto) (0-0.2) K/uL Immature Gran # (Auto) (0.00-0.02) K/uL PT (9.0-12.0) Seconds INR (0.9-1.1) APTT (21.0-31.0) Seconds PTT Ratio Sodium (136-145) mmol/L Potassium (3.5-5.1) mmol/L Chloride (98-107) mmol/L Carbon Dioxide (21-32) mmol/L Anion Gap (3-11) BUN (7-18) mg/dl Creatinine (0.6-1.4) mg/dl Est Cr Clr Drug Dosing ml/min Est GFR ( Amer) Est GFR (Non-Af Amer) BUN/Creatinine Ratio (10-20) Glucose (70-99) mg/dl Lactate 1.9 (0.4-2.0) mmol/L Calcium (8.5-10.1) mg/dl Magnesium (1.8-2.4) mg/dl Total Bilirubin (0.2-1) mg/dl AST (15-37) U/L ALT (12-78) U/L Alkaline Phosphatase (45-117) U/L Total Protein (6.4-8.2) gm/dl Albumin (3.4-5.0) gm/dl Globulin (2.5-4.0) gm/dl Albumin/Globulin Ratio (0.9-2) Imaging Data Attestation: I personally reviewed and interpreted this imaging study as follows: My Impression: X-ray: No acute infiltrate, failure, pneumothorax seen on my exam Radiologist's Impression: XR chest 1V portable CLINICAL HISTORY: SEPSIS dyspnea COMPARISON STUDY: 09/13/2019 FINDINGS: Diffuse chronic parenchymal fibrosis. Potential superimposed interstitial infiltrate left base. Pulmonary apices are clear. Mild stable cardiomegaly. IMPRESSION: 1. Interstitial infiltrate left base. 2. Chronic change. ECG Data Attestation: I personally reviewed and interpreted this ECG as follows: Indication: + chest pain Rate (beats per minute): 96 Rhythm: + normal sinus ECG Intervals/blocks: + Normal QRS, + Normal QT and + Normal CO ECG [place]: + Left axis deviation ECG Findings: + Other (Nonspecific T wave abnormality) Comparison ECG Date: from (09/13/19) Change: no significant change Blood Pressure Blood Pressure Findings: Elevated blood pressure Blood Pressure Disposition: elevated BP felt to be situational MDM Narrative This patient comes in as described above. He was sent for IV antibiotics. He is afebrile and looks well without complaints. We did review his urine culture and it is Pseudomonas. IV access will establish and a sepsis work-up was obtained. We also did contact the IV team to see if they were available to put a PICC line in as that is why he was supposed to come here to begin with. His white count is mildly elevated however it always is chronically elevated. He has baseline renal insufficiency. The rest of his labs look unremarkable his lactic acid not elevated. He does not appear to have pneumonia or CHF on chest x-ray. EKG is unremarkable. He looks well. We did give him ceftazidime 1 g and he will get ceftazidime 1 g IV twice daily. He can potentially go home with an IV. His doctor's office was trying to get him a PICC line today and the IV team has been consulted to see him in the ER. We are also looking to make sure that he has the antibiotics lined up at home with home nursing our watch case polisher is working on that. The patient was signed out at shift change to Dr. Arreguin he will follow-up on these 2 things if everything is lined up and patient continues to do well he can go home. If IV antibiotics are not lined up he may need to be admitted for further IV antibiotics. Impression & Plan Urinary tract infection, Weakness, Chronic indwelling Venegas catheter, Anticoagulant long-term use Discharge Plan Visit Data *Final* Discharge Date/Time: 03/31/20 21:20 Chief Complaint: Urinary Symptoms ED Provider: Gold Arreguin Discharge Problem: Urinary tract infection, Weakness, Chronic indwelling Venegas catheter, Anticoagulant long-term use Patient Disposition: Admitted As Inpatient Discharge Instructions Interventions: ED Discharge Assessment Last Done: 03/31/20 21:20 Discharge Problem: Urinary tract infection Qualifiers: Urinary tract infection type: site unspecified Hematuria presence: without he maturia Qualified Code(s): N39.0 - Urinary tract infection, site not specified
[2020-03-31 17:02] LABS: INR 1.1 (0.9-1.1); Partial Thromboplastin Ratio 1.1; Partial Thromboplastin Time 30.2 Seconds (21.0-31.0); Prothrombin Time 11.1 Seconds (9.0-12.0)
[2020-03-31 17:08] LABS: Albumin Level 2.9 gm/dl (3.4-5.0); BUN Creatinine Ratio 15.5 (10-20); Calcium 9.8 mg/dl (8.5-10.1); Creatinine Clr Calc Pharmacy 36.2 ml/min; Est GFR (African American) 52.3; Est GFR (Non-African American) 45.1; Potassium 4.9 mmol/L (3.5-5.1)
[2020-03-31 17:11] LABS: Albumin Globulin Ratio 0.7 (0.9-2); Bilirubin,Total 0.3 mg/dl (0.2-1); Globulin 4.4 gm/dl (2.5-4.0); Total Protein 7.3 gm/dl (6.4-8.2)
--- NOTE | 2020-03-31 20:09 | History & Physical Report ---
Date of Service March 31, 2020 Assessment & Plan (1) Urinary tract infection: Mr. Leo Garcia is a 85 y/o male with past medical hx of paroxysmal afib, chronic indwelling tong cath, CHF, BPH, HTN, HLD, CKD3, COPD who presented to [facility] ED for positive urinary culture. He has a chronic indwelling tong. He had an outpt urinary culture that was positive for Pseudomonas. He was currently on Cipro PO as outpt. Sensitivities came back with resistance to Cipro. He was given Ceftazidime in ED per susceptibility report. He was planned to get a [facility] line at [facility] today and get IV abx at residence but was late getting there and then went to ED. - continue with Ceftazidime 1gm q8h IV as per susceptibility report. - no current signs of sepsis or life threatening infection. - will continue with home meds - expect discharge home after weekend stay - case management consulted for discharge planning - PICC placed in ED DVT: c.w home Eliquis FENGI: Heart healthy diet Code: Full Code Dispo: Full admit, med surg (2) Chronic indwelling Tong catheter: as above (3) Anemia: appears stable (4) BPH (benign prostatic hyperplasia): c/w home dutasteride 0.5mg PO (5) Leukocytosis: chronic, follow (6) Chronic kidney disease, stage 3: appears near baseline, trend (7) Chronic diastolic heart failure: hold home Lasix until able to identify when taken last, reports takes 40mg q2day. heart healthy diet (8) Hyperlipidemia: c/w home statin (9) Paroxysmal atrial fibrillation: c/w home Eliquis ECG in ED with NSR (10) COPD (chronic obstructive pulmonary disease): c/w home inhalers Duonebs ordered per home medications c.w home prednisone History of Present Illness Chief Complaint: positive urinary culture. Primary Care Provider: Mateo Morse MD Mr. Leo Garcia is a 85 y/o male with past medical hx of paroxysmal afib, chronic indwelling tong cath, CHF, BPH, HTN, HLD, CKD3, COPD who presented to [facility] ED for positive urinary culture. He has a chronic indwelling tong. He had an outpt urinary culture that was positive for Pseudomonas. He was currently on Cipro PO as outpt. Sensitivities came back with resistance to Cipro. He was given Ceftazidime in ED per susceptibility report. He has no current complaints, no chest pain, no shortness of breath, no fever/chills, nausea, vomiting. He was planned to get a P[facility] line [facility] today and get IV abx at residence but was late getting there and then went to ED. Allergies Allergy/AdvReac Type Severity Reaction Status Date / Time tamsulosin Allergy Unknown Unknown Verified 03/16/20 09:22 cilostazol AdvReac Unknown dizziness, Verified 03/16/20 09:22 palpitations diltiazem AdvReac Unknown dizziness, Verified 03/16/20 09:22 palpitations simvastatin AdvReac Unknown dizziness Verified 03/16/20 09:22 Home Medications Home Medications Medication Instructions Recorded Confirmed Type pravastatin 20 mg tablet 20 mg PO QPM #90 tab 08/03/19 03/31/20 Rx apixaban 2.5 mg tablet 2.5 mg PO BID #180 tab 08/26/19 03/31/20 Rx albuterol sulfate 2 puff INHALATION QID PRN 09/13/19 03/31/20 History cholecalciferol (vitamin D3) 2,000 units PO QAM 10/03/19 03/31/20 History [Vitamin D3] cyanocobalamin (vitamin B-12) 1,000 mcg PO QAM 10/03/19 03/31/20 History prednisone 10 mg PO QAM 10/03/19 03/31/20 History montelukast 10 mg tablet 10 mg PO QAM #90 tab 10/20/19 03/31/20 Rx mometasone-formoterol HFA 200 1 puff INHALATION Q12H #13 gm 11/08/19 03/31/20 Rx mcg-5 mcg/actuation aerosol inhaler ipratropium 0.5 mg-albuterol 3 mg 3 ml INHALATION TID #180 ml 01/17/20 03/31/20 Rx (2.5 mg base)/3 mL nebulization soln furosemide 40 mg tablet 20 mg PO Q2D #30 tab 01/24/20 03/31/20 Rx nitrofurantoin macrocrystal 50 mg 50 mg PO QAM #30 cap 01/24/20 03/31/20 Rx capsule sodium chloride 7 % for 4 ml INH BID #240 ml 02/23/20 03/31/20 Rx nebulization metoprolol succinate 50 mg 50 mg PO QAM #90 tab 02/24/20 03/31/20 Rx tablet,extended release 24 hr potassium chloride 10 mEq 10 meq PO Q2D #30 cap 03/09/20 03/31/20 Rx capsule,extended release tiotropium bromide 2.5 2 puffs INHALATION DAILY #4 ml 03/21/20 03/31/20 Rx mcg/actuation mist for inhalation ciprofloxacin HCl 250 mg tablet 250 mg PO BID #20 tab 03/30/20 03/31/20 Rx benzonatate 100 mg PO BID PRN 03/31/20 03/31/20 History diphenhydramine HCl [Benadryl] 25 mg PO HS 03/31/20 03/31/20 History folic acid 800 mcg PO QAM 03/31/20 03/31/20 History guaifenesin [Mucinex] 600 mg PO BID 03/31/20 03/31/20 History lorazepam 0.5 mg PO DAILY PRN 03/31/20 03/31/20 History melatonin 10 mg PO HS 03/31/20 03/31/20 History oxycodone 5 mg PO HS 03/31/20 03/31/20 History Past Med/Surg History Medical History Actinic keratosis (Acute) Anemia (Acute) Ankle edema, bilateral Pt admits to eating salty snacks lately. Advised to avoid salt. Asthma Benign prostatic hyperplasia with urinary obstruction (Acute) Eda disease (Acute) Cachexia Carotid artery plaque (Acute) <50% stenosis of internal carotids B/L by 2017 doppler Chronic diastolic heart failure 2+ ankle edema on exam at [facility] Chronic kidney disease, stage 3 Enlarged prostate Hematuria 2/2 renal calculi Hyperlipidemia Hypertension Indwelling Tong catheter present Insomnia (Acute) Leukocytosis (Acute) Nephrolithiasis (Acute) On home oxygen therapy 2lpm via n/c PAD (peripheral artery disease) (Acute) Paroxysmal atrial fibrillation Dx 07/28/18 during admission for COPD exacerbation. Initially in RVR, but spontaneously converted; started on Metoprolol and Eliquis. Eliquis discontinued during admission 03/08/19 due to hematuria. Pulmonary emphysema (Acute) Pulmonary nodule (Acute) Sinus tachycardia (Acute) UTI (urinary tract infection) (Acute) Vitamin D deficiency (Acute) Weight loss (Acute) Surgical History History of appendectomy History of colonoscopy History of cystoscopy WITH STENT, during admission 03/2019 History of lithotripsy History of tonsillectomy Hx of transurethral resection of prostate Family History Mother Cancer thyroid Brother Myocardial infarction Prostate cancer Father No problems noted. Other Family history non-contributory No significant family history Denies family history of Stroke Social History Preferred Language: Occitan Communication Ability: Effective Assurance Senior Manager Required: No Beliefs That Will Affect Care: None marital status: Current Living Situation: Spouse Current Living Situation Comment: currently has home health services current occupational status: retired Feels Safe at Home: Yes Smoking Status: Former smoker Tobacco Type: cigarettes ; Cigarettes Per Day: 20 ; Second Hand Exposure: No ; Hx Alcohol Use: No Hx Substance Use: No Seatbelt Use: always Sunscreen Use: Yes Review of Systems Review of Systems: All systems reviewed & are unremarkable except as noted in HPI & below Constitutional: no fever and no chills Eyes: no blind spots and no worsening vision Ear, Nose, Mouth, Throat: no nasal congestion and no sore throat Respiratory: no cough and no dyspnea Cardiovascular: no chest pain and no palpitations Gastrointestinal: no abdominal pain, no nausea and no vomiting Genitourinary: + as per Subjective / HPI Integumentary: no rash and no lesions Neurologic: no generalized weakness and no numbness Physical Exam Constitutional: WD/WN, vitals as above cooperative and comfortable Eyes: PERRL, conjunctivae normal, anicteric sclerae ENMT: external ear and nose normal, oropharynx normal Neck: normal visual inspection and trachea midline Respiratory: normal respiratory effort, lungs clear to auscultation Cardiovascular: Rate/Rhythm: regular rate and regular rhythm Extremities: no edema Gastrointestinal (Abdomen): Percussion/Palpation: abdomen soft; abdomen nontender, no guarding and abdomen not rigid Musculoskeletal: Head/Neck/Chest: normocephalic and head atraumatic Skin: no rashes, warm and dry Neurologic: moves all extremities and awake Psychiatric: A+Ox3, euthymic affect Genitourinary: tong cath in placew Results & Data Results & Data ([facility]) Vital Signs (Past 12 Hours) Vital Signs Temp Pulse Pulse Resp BP BP Pulse Ox 03/31/20 18:06 101 H 20 164/109 H 98 03/31/20 16:20 36.7 C 95 H 20 150/98 H 98 Laboratory Results Laboratory Results - last 24 hr 03/31/20 03/31/20 03/31/20 16:39 16:39 16:39 WBC 15.87 H RBC 3.23 L Hgb 10.1 L Hct 31.6 L MCV 97.8 MCH 31.3 MCHC 32.0 RDW Std Deviation 52.3 H RDW Coeff of Ashley 14.6 H Plt Count 331 MPV 9.5 Immature Gran % (Auto) 0.9 Neut % (Auto) 86.8 Lymph % (Auto) 6.7 [place] % (Auto) 5.4 Eos % (Auto) 0.1 Baso % (Auto) 0.1 Neut # (Auto) 13.77 H Lymph # (Auto) 1.06 L [place] # (Auto) 0.86 H Eos # (Auto) 0.02 Baso # (Auto) 0.02 Immature Gran # (Auto) 0.14 H PT 11.1 INR 1.1 APTT 30.2 PTT Ratio 1.1 Sodium 136 Potassium 4.9 Chloride 103 Carbon Dioxide 28 Anion Gap 5.0 BUN 22 H Creatinine 1.41 H Est Cr Clr Drug Dosing 36.2 Est GFR ( Amer) 52.3 Est GFR (Non-Af Amer) 45.1 BUN/Creatinine Ratio 15.5 Glucose 109 H Lactate Calcium 9.8 Magnesium 2.0 Total Bilirubin 0.3 AST 15 ALT 23 Alkaline Phosphatase 82 Total Protein 7.3 Albumin 2.9 L Globulin 4.4 H Albumin/Globulin Ratio 0.7 L 03/31/20 16:39 WBC RBC Hgb Hct MCV MCH MCHC RDW Std Deviation RDW Coeff of Ashley Plt Count MPV Immature Gran % (Auto) Neut % (Auto) Lymph % (Auto) [place] % (Auto) Eos % (Auto) Baso % (Auto) Neut # (Auto) Lymph # (Auto) [place] # (Auto) Eos # (Auto) Baso # (Auto) Immature Gran # (Auto) PT INR APTT PTT Ratio Sodium Potassium Chloride Carbon Dioxide Anion Gap BUN Creatinine Est Cr Clr Drug Dosing Est GFR ( Amer) Est GFR (Non-Af Amer) BUN/Creatinine Ratio Glucose Lactate 1.9 Calcium Magnesium Total Bilirubin AST ALT Alkaline Phosphatase Total Protein Albumin Globulin Albumin/Globulin Ratio Code Status & VTE Plan VTE Prophylaxis Plan VTE Prophylaxis will be ordered: Yes Supervising Physician Co-Signing Physician Notes Patient seen and examined, chart reviewed, case discussed with Dr. Griffith and I agree with his assessment and plan as documented above. Briefly, patient is a pleasant 85yo C male with history of chronic indwelling Tong presenting with Pseudomonas UTI - culture from 03/29/20 with >100,000 CFU P. aeruginosa R Cipro/Gent/Levaquin. Corresponding UA - turbid, +blood/nitrites/LE/WBCs and 3+ bacteria. Patient complaining only of some mild discomfort of tip of penis. On exam he is afebrile, HD stable, NAD Skin - scattered bruises on forearms, redness of abdomen HEENT - NC/AT, PERRL, EOMI, MMM Heart - +S1/S2, regular, no m/r/g Lungs - CTA Abd - +BS, soft, NT/ND Ext - No edema Tong in place Labs and images reviewed, significant for WBC=15.87, Hgb=10.1, Hct=31.6, BUN=22, Cr=1.41 Assessment/Plan - 85yo C male with Pseudomonas + UTI, resistant to PO agents -Admission to medical floor -PICC line placement -Ceftazidime -Remainder of plan as above Resident Activity Tracking Resident Involvement: Resident Care Provided Care Provided: Adult Hospital Medicine (1) Urinary tract infection Hematuria presence: without hematuria Urinary tract infection type: site unspecified Qualified Code(s): N39.0 - Urinary tract infection, site not specified (2) BPH (benign prostatic hyperplasia) Lower urinary tract symptom detail: urinary retention Lower urinary tract symptom presence: symptoms present Qualified Code(s): N40.1 - Benign prostatic hyperplasia with lower urinary tract symptoms; R33.8 - Other retention of urine
[2020-03-31] MEDS ORDERED: POLYETHYLENE (MIRALAX) 17 GM PACK PO PRN (21:42)
[2020-03-31] MEDS ORDERED: BENZONATATE 100 MG CAPSULE PO PRN (21:42)
[2020-03-31] MEDS ORDERED: TRAZODONE HCL 50 MG TAB PO PRN (21:42)
[2020-03-31] MEDS ORDERED: ONDANSETRON INJ 2 MG/ML 2 ML VIAL IV PRN (21:42)
[2020-03-31] MEDS: SODIUM CHLOR 7% 4 ML NEB INH SCH (22:15)
--- NOTE | 2020-03-31 23:07 | Billing Data ---
Date of Service March 31, 2020 Coding Level of Care Code 33273 Initial Inpt Care Lvl 3
[2020-03-31] MEDS: OXYCODONE HCL IR 5 MG TAB (IMMEDIATE RELEASE) PO SCH (23:47)
[2020-03-31] MEDS: PRAVASTATIN SOD 20 MG TAB PO SCH (23:48)
[2020-03-31] MEDS: MELATONIN 3 MG TAB PO SCH (23:48)
[2020-03-31] MEDS: guaiFENesin 600 MG TABCR PO SCH (23:49)
[2020-03-31] MEDS: APIXABAN 2.5 MG TAB PO SCH (23:49)
[2020-04-01 03:53] LABS: Appearance Urine Cloudy (Clear); Bacteria Urine Automated 2+ (Negative); Bilirubin Urine Negative (Negative); Blood Urine Negative (Negative); Color Urine Yellow; Epithelial Cell Urine Auto 0-5 /lpf (0-5); Glucose Urine UA Negative (Negative); Ketones Urine Negative (Negative); Leukocyte Esterase Urine 3+ (Negative); Nitrite Urine Positive (Negative); Protein Urine Negative (Negative); RBC Urine Automated 0-4 /hpf (0-4); Specific Gravity Urine 1.019 (1.000-1.030); Urobilinogen Urine Negative (Negative); WBC Urine Automated >30 /hpf (0-5)
[2020-04-01 04:28] LABS: Cast Urine Automated 0 /lpf (0-5)
[2020-04-01] MEDS: ACETAMINOPHEN 325 MG TAB PO PRN (06:09)
[2020-04-01] MEDS: ALBUT/IPRATROP 3MG/0.5MG NEB 3 ML VIAL INH SCH ×3 (07:24→19:28)
[2020-04-01] MEDS: SODIUM CHLOR 7% 4 ML NEB INH SCH ×2 (07:24→19:20)
[2020-04-01] MEDS: UMECLIDINIUM BROMIDE 62.5MCG/BLISTER 7 PUFFS/INHALER INH SCH (09:11)
[2020-04-01] MEDS: FLUTICASONE/VILANTEROL 100/25MCG 14 PUFFS/INHALER INH SCH (09:11)
[2020-04-01] MEDS: POTASSIUM CHLORIDE 10 MEQ TABCR PO SCH (09:17)
[2020-04-01] MEDS: METOPROLOL SUCC 50MG EXT REL TAB PO SCH (09:17)
[2020-04-01] MEDS: APIXABAN 2.5 MG TAB PO SCH ×2 (09:17→22:00)
[2020-04-01] MEDS: FOLIC ACID 400 MCG TAB PO SCH (09:17)
[2020-04-01] MEDS: guaiFENesin 600 MG TABCR PO SCH ×2 (09:17→22:00)
[2020-04-01] MEDS: MONTELUKAST SODIUM 10 MG TABLET PO SCH (09:17)
[2020-04-01] MEDS: predniSONE 10 MG TABLET PO SCH (09:17)
[2020-04-01] MEDS: POLYETHYLENE (MIRALAX) 17 GM PACK PO SCH (09:52)
[2020-04-01 10:26] LABS: Basophils # (auto) 0.03 K/uL (0-0.2); Basophils % (auto) 0.2 %; Eosinophils # (auto) 0.31 K/uL (0-0.5); Eosinophils % (auto) 2.3 %; Hematocrit (blood only) 32.1 % (42-52); Hemoglobin 10.3 g/dL (14.0-18.0); Immature Granulocytes # (auto) 0.16 K/uL (0.00-0.02); Immature Granulocytes % (auto) 1.2 %; Lymphocytes % (auto) 17.5 %; Mean Corpuscular Hemoglobin 31.4 pg (25-34); Mean Corpuscular Hgb Conc 32.1 g/dL (32-36); Mean Corpuscular Volume 97.9 fL (80-100); Mean Platelet Volume 9.5 fL (7.4-10.4); Monocytes # (auto) 1.19 K/uL (0.11-0.59); Monocytes % (auto) 8.7 %; Neutrophils # (auto) 9.62 K/uL (1.4-6.5); Neutrophils % (auto) 70.1 %; Platelet Count 302 K/uL (130-400); RDW Coefficient of Variation 14.7 % (11.5-14.5); RDW Standard Deviation 52.3 fL (36.4-46.3); Red Blood Count 3.28 M/uL (4.7-6.1); White Blood Count 13.71 K/uL (4.8-10.8)
[2020-04-01 10:43] LABS: BUN Creatinine Ratio 14.3 (10-20); Calcium 9.6 mg/dl (8.5-10.1); Creatinine Clr Calc Pharmacy 36.8 ml/min; Est GFR (African American) 53.2; Est GFR (Non-African American) 45.9; Potassium 4.3 mmol/L (3.5-5.1)
--- NOTE | 2020-04-01 11:02 | Electrocardiogram Report ---
Test Reason : Blood Pressure : / mmHG Vent. Rate : 096 BPM Atrial Rate : 096 BPM P-R Int : 128 ms QRS Dur : 084 ms QT Int : 336 ms P-R-T Axes : 050 -34 023 degrees QTc Int : 424 ms Normal sinus rhythm Left axis deviation Nonspecific ST abnormality Abnormal ECG When compared with ECG of 13-SEP-2019 03:51, No significant change was found Confirmed by Mateo Lanza ([id number]) on 04/01/2020 11:02:10 AM Referred By: REFERRED SELF Confirmed By:Denis Lanza
--- NOTE | 2020-04-01 12:15 | Hospitalist Progress Note ---
Date of Service April 01, 2020 Assessment & Plan (1) Urinary tract infection: 85 yo M PMHx COPD, AFib on Eliquis, COPD, Hx of chronic indwelling Tong admitted for concern for complicated Pseudomonas UTI. Complicated UTI 2/2 chronic indwelling tong: - Patient with Pseudomonas sensitive to ceftazidime on UCx two days ago. - Tolerating IV antibiotics well, PICC line placed yesterday evening. - Patient's daughter feels uncomfortable with giving IV Abx at home, wishes to pursue short term acute care stay. - COVID 19 testing, non PUI to be performed Friday morning for [facility] referral (no beds available until Friday). - Doing well symptomatically. Continue IV ceftazidime, PO intake as tolerated, continue home medications as below. COPD: - continue albuterol prn, nebs prn, Dulera, montelukast, prednisone. - no current respiratory symptoms. Paroxysmal AFib: - continue home metoprolol, Eliquis. HLD: - continue home pravastatin. Sleep disturbance: - continue home trazodone. Constipation: - start scheduled Miralax 1 packet daily while admitted. - will increase as needed for goal of 1BM every other day. Code Status: FULL CODE FEN/GI: Heart Healthy DVT ppx: Eliquis Dispo: acute care facility pending COVID 19 testing and acceptance. (2) COPD (chronic obstructive pulmonary disease): (3) Chronic indwelling Tong catheter: (4) Weakness: (5) Anticoagulant long-term use: (6) Atrial fibrillation: Admission and Anticipated Discharge Date Admission Date: March 31, 2020 Supervising Physician Co-Signing Physician Notes I personally examined the patient and verified all [place] points of history and exam, discussed case, and agree with decision making with Dr Henry. feeling ok. tong was not yet changed. had burning and urethral pain as sx. really doesn't want to go to a facility vitals ntoed nad heent nc at mmm breathing unlabored no accessory muscles good effort complicated catheter associated UTI -fortunately very mild sx, unfortunately MDR pseudomonas -continue fortaz for now - will need 7 days total for complicated UTI -change tong -for possible dc planning - ??while not normally antipseudomonal, asking if lab can test for ertapenem since the bacteria is quite sensitive to impenem and with erta being QD it might make home planning easier -PT/OT eval and treat -with today completing day 1/7 of abx, and with facility not available until at least day 3/7, and with possible delays related to need for covid testing for facility, in the end while it's less than ideal, he may end up here for course of treatment. Subjective Patient without acute events overnight. Denies dysuria, hematuria, urinary frequency or urgency. Has a longstanding indwelling catheter. Reports that he went to his PCP for burning at his urethra, and at that time a UA was suggestive of infection and UCx was collected which grew Pseudomonas. He was started in Cipro prior to culture results and was advised to come to hospital for PICC line for IV Abx, but did not come to the [facility] prior to it closing and therefore had to go to the ER for antibiotics. Had PICC line placed last night. At this time denies fevers or chills, abdominal pain, diarrhea, nausea or vomiting. Has not had a BM since Friday, however usually goes every two days and takes Miralax at home for constipation; has not taken it recently. Review of Systems Review of Systems: All systems reviewed & are unremarkable except as noted in HPI & below Constitutional: no fever, no chills and no malaise Respiratory: no cough and no dyspnea Cardiovascular: no chest pain, no palpitations and no edema Gastrointestinal: no abdominal pain, no constipation and no diarrhea/loose stools Physical Exam Constitutional: WD/WN, vitals as above Eyes: PERRL, conjunctivae normal, anicteric sclerae ENMT: external ear and nose normal, oropharynx normal Neck: normal visual inspection Respiratory: normal respiratory effort, lungs clear to auscultation Cardiovascular: RRR, no murmur, no edema Gastrointestinal (Abdomen): normal bowel sounds, soft, nontender, no hepatosplenomegaly Musculoskeletal: Extremities: no cyanosis Skin: livedo reticularis on abdomen, skin not cool to the touch Neurologic: AAOx3, normal speech. PERRLA, EOMI, no nystagmus. Normal visual acuity bilaterally. Bilateral UE, LE, and face without sensory or motor deficits. DTRs normal. II- XII intact bilaterally. No pronator drift. No tremor. No ataxia. Psychiatric: A+Ox3, euthymic affect Results & Data Results & Data ([facility]) Vital Signs (Past 12 Hours) Vital Signs Temp Pulse Resp BP Pulse Ox 04/01/20 07:26 104 H 18 96 04/01/20 06:40 36.6 C 84 20 130/81 96 Resident Activity Tracking Resident Involvement: Resident Care Provided Care Provided: Adult Hospital Medicine (1) Urinary tract infection Hematuria presence: without hematuria Urinary tract infection type: site unspecified Qualified Code(s): N39.0 - Urinary tract infection, site not specified (2) Atrial fibrillation Atrial fibrillation type: chronic Qualified Code(s): I48.2 - Chronic atrial fibrillation
[2020-04-01] MEDS ORDERED: SODIUM CHLORIDE 0.65% NA SOLN 45 ML (OCEAN) PRN (16:17)
--- NOTE | 2020-04-01 17:54 | Billing Data ---
Date of Service April 01, 2020 Coding Level of Care Code 79374 Subseq Hosp Care Lvl 3
[2020-04-01] MEDS: OXYCODONE HCL IR 5 MG TAB (IMMEDIATE RELEASE) PO SCH (22:00)
[2020-04-01] MEDS: PRAVASTATIN SOD 20 MG TAB PO SCH (22:00)
[2020-04-01] MEDS: MELATONIN 3 MG TAB PO SCH (22:00)
[2020-04-02 06:12] LABS: Basophils # (auto) 0.02 K/uL (0-0.2); Basophils % (auto) 0.2 %; Eosinophils # (auto) 0.23 K/uL (0-0.5); Eosinophils % (auto) 1.9 %; Hemoglobin 9.5 g/dL (14.0-18.0); Immature Granulocytes # (auto) 0.14 K/uL (0.00-0.02); Immature Granulocytes % (auto) 1.1 %; Lymphocytes # (auto) 2.38 K/uL (1.2-3.4); Lymphocytes % (auto) 19.5 %; Mean Corpuscular Hemoglobin 31.3 pg (25-34); Mean Corpuscular Hgb Conc 31.7 g/dL (32-36); Mean Corpuscular Volume 98.7 fL (80-100); Mean Platelet Volume 9.7 fL (7.4-10.4); Monocytes # (auto) 1.24 K/uL (0.11-0.59); Monocytes % (auto) 10.1 %; Neutrophils # (auto) 8.21 K/uL (1.4-6.5); Neutrophils % (auto) 67.2 %; Platelet Count 277 K/uL (130-400); RDW Coefficient of Variation 14.8 % (11.5-14.5); RDW Standard Deviation 52.6 fL (36.4-46.3); Red Blood Count 3.04 M/uL (4.7-6.1); White Blood Count 12.22 K/uL (4.8-10.8)
[2020-04-02 06:46] LABS: BUN Creatinine Ratio 16.5 (10-20); Calcium 9.4 mg/dl (8.5-10.1); Creatinine Clr Calc Pharmacy 31.4 ml/min; Est GFR (African American) 43.9; Est GFR (Non-African American) 37.8; Potassium 4.3 mmol/L (3.5-5.1)
[2020-04-02] MEDS: ALBUT/IPRATROP 3MG/0.5MG NEB 3 ML VIAL INH SCH ×3 (06:58→19:34)
[2020-04-02] MEDS: SODIUM CHLOR 7% 4 ML NEB INH SCH ×2 (06:58→19:21)
--- NOTE | 2020-04-02 07:35 | Hospitalist Progress Note ---
Date of Service April 02, 2020 Assessment & Plan (1) Urinary tract infection: 85 yo M PMHx COPD, AFib on Eliquis, COPD, Hx of chronic indwelling Tong admitted for concern for complicated Pseudomonas UTI. Complicated UTI 2/2 chronic indwelling tong: - Patient with Pseudomonas sensitive to ceftazidime on UCx in outpatient setting. - Tolerating IV antibiotics well, PICC line placed 03/31. - Patient's daughter feels uncomfortable with giving IV Abx at home, wishes to pursue short term acute care stay. - COVID 19 testing, non PUI to be performed Friday morning for [place] referral (no beds available until Friday). - Doing well symptomatically. Continue IV ceftazidime for total of 7 days, PO intake as tolerated, continue home medications as below. Intertrigo of the groin: - Will start Nystatin powder TID to affected area in groin. COPD: - Continue albuterol prn, nebs prn, Dulera, montelukast, prednisone. - No current respiratory symptoms. Paroxysmal AFib: - Continue home metoprolol, Eliquis. HLD: - Continue home pravastatin. Sleep disturbance: - Continue home trazodone. Constipation: - Patient still constipated despite daily Miralax. Will give 2 extra packs today. - Will increase as needed for goal of 1BM every other day. Code Status: FULL CODE FEN/GI: Heart Healthy DVT ppx: Eliquis Dispo: acute care facility pending COVID 19 testing and acceptance. (2) COPD (chronic obstructive pulmonary disease): (3) Chronic indwelling Tong catheter: (4) Weakness: (5) Anticoagulant long-term use: (6) Atrial fibrillation: (7) Intertrigo: Admission and Anticipated Discharge Date Admission Date: March 31, 2020 Supervising Physician Co-Signing Physician Notes I personally examined the patient and verified all escam[place] points of history and exam, discussed case, and agree with decision making with Dr Henry. only real complaint is not wanting to go to a facility. notes that PT assessment would say that he is weak - but that he notes he's basically the same degree of weakness he's been for the last ~1.5yrs no worse. vitals noted nad heent nc at mmm breathing unlabored no accessory muscles good effort complicated catheter associated UTI -fortunately very mild sx, unfortunately MDR pseudomonas -continue fortaz for now - will need 7 days total for complicated UTI -change tong -for possible dc planning - ??while not normally antipseudomonal, asking if lab can test for ertapenem since the bacteria is quite sensitive to impenem and with erta being QD it might make home planning easier -PT/OT eval and treat -with today completing day 2/7 of abx, and with facility not available until at least day 3/7, and with possible delays related to need for covid testing for facility, in the end while it's less than ideal, he may end up here for course of treatment. weakness - he notes this is his baseline and really wants to go home not a facility. will need to coordinate w family in regards to ?safety at home -- and also look into assistive devices (he notes a lift chair would be helpful) etc to help him should he go home Subjective Overnight resident was called to bedside last night for a nurse noted scrotal rash. Patient without discomfort then. No intervention made. This morning on discussing with the patient, he said that his scrotal area is it marvin, and uncomfortable, but not quite painful. Has had this rash for some time. Is bathed once a week by home health. Cannot see the area himself and so is unclear on whether it has improved or gotten worse. Today also complaining of constipation with last BM Friday. No abdominal pain or distention reported. Review of Systems Review of Systems: All systems reviewed & are unremarkable except as noted in HPI & below Constitutional: no fever, no chills and no malaise Respiratory: no cough and no dyspnea Cardiovascular: no chest pain, no palpitations and no edema Gastrointestinal: + constipation; no abdominal pain and no diarrhea/loose stools Physical Exam Constitutional: WD/WN, vitals as above Eyes: PERRL, conjunctivae normal, anicteric sclerae ENMT: external ear and nose normal, oropharynx normal Neck: normal visual inspection Respiratory: normal respiratory effort, lungs clear to auscultation Cardiovascular: RRR, no murmur, no edema Gastrointestinal (Abdomen): normal bowel sounds, soft, nontender, no hepatosplenomegaly Musculoskeletal: Extremities: no cyanosis Skin: livedo reticularis on abdomen, skin not cool to the touch scrotal area with erythematous and macerated plaques, pink to red in appearance. Slightly tender to the touch. No blistering, no vesicles Psychiatric: A+Ox3, euthymic affect Genitourinary: chronic tong draining clear yellow urine Results & Data Results & Data ([facility]) Vital Signs (Past 12 Hours) Vital Signs Temp Pulse Resp BP Pulse Ox 04/02/20 07:01 95 H 16 94 04/02/20 05:57 36.5 C 91 H 20 121/75 93 04/01/20 23:45 36.7 C 101 H 16 121/80 97 Resident Activity Tracking Resident Involvement: Resident Care Provided Care Provided: Adult Hospital Medicine (1) Urinary tract infection Hematuria presence: without hematuria Urinary tract infection type: site unspecified Qualified Code(s): N39.0 - Urinary tract infection, site not specified (2) Atrial fibrillation Atrial fibrillation type: chronic Qualified Code(s): I48.2 - Chronic atrial fibrillation
[2020-04-02] MEDS ORDERED: POLYETHYLENE (MIRALAX) 17 GM PACK PO ONE (09:45)
[2020-04-02] MEDS: UMECLIDINIUM BROMIDE 62.5MCG/BLISTER 7 PUFFS/INHALER INH SCH (09:49)
[2020-04-02] MEDS: FLUTICASONE/VILANTEROL 100/25MCG 14 PUFFS/INHALER INH SCH (09:50)
[2020-04-02] MEDS: predniSONE 10 MG TABLET PO SCH (09:51)
[2020-04-02] MEDS: POLYETHYLENE (MIRALAX) 17 GM PACK PO SCH (09:51)
[2020-04-02] MEDS: FOLIC ACID 400 MCG TAB PO SCH (09:51)
[2020-04-02] MEDS: guaiFENesin 600 MG TABCR PO SCH ×2 (09:51→22:05)
[2020-04-02] MEDS: METOPROLOL SUCC 50MG EXT REL TAB PO SCH (09:51)
[2020-04-02] MEDS: MONTELUKAST SODIUM 10 MG TABLET PO SCH (09:51)
[2020-04-02] MEDS: APIXABAN 2.5 MG TAB PO SCH ×2 (09:51→22:05)
[2020-04-02] MEDS: ACETAMINOPHEN 325 MG TAB PO PRN (11:08)
[2020-04-02] MEDS: NYSTATIN POWDER 15GM BTL EXT SCH ×2 (14:11→18:38)
[2020-04-02] MEDS: MAGNESIUM HYDROXIDE SUSP 30 ML UDC PO PRN (15:21)
--- NOTE | 2020-04-02 16:51 | Billing Data ---
Date of Service April 02, 2020 Coding Level of Care Code 57609 Subseq Hosp Care Lvl 3
[2020-04-02] MEDS ORDERED: EUCERIN CR 120 GM JAR EXT PRN (17:57)
[2020-04-02] MEDS: MELATONIN 3 MG TAB PO SCH (22:04)
[2020-04-02] MEDS: OXYCODONE HCL IR 5 MG TAB (IMMEDIATE RELEASE) PO SCH (22:05)
[2020-04-02] MEDS: PRAVASTATIN SOD 20 MG TAB PO SCH (22:05)
[2020-04-02] MEDS: HYDROCORTISONE 1% CRM 30 GM TUBE EXT PRN (22:05)
[2020-04-03] MEDS: NYSTATIN POWDER 15GM BTL EXT SCH ×3 (03:25→18:55)
[2020-04-03] MEDS: HYDROCORTISONE 1% CRM 30 GM TUBE EXT PRN (03:25)
[2020-04-03 06:29] LABS: Basophils # (auto) 0.03 K/uL (0-0.2); Basophils % (auto) 0.2 %; Eosinophils # (auto) 0.17 K/uL (0-0.5); Eosinophils % (auto) 1.3 %; Hematocrit (blood only) 30.7 % (42-52); Hemoglobin 9.6 g/dL (14.0-18.0); Immature Granulocytes # (auto) 0.17 K/uL (0.00-0.02); Immature Granulocytes % (auto) 1.3 %; Lymphocytes # (auto) 2.43 K/uL (1.2-3.4); Lymphocytes % (auto) 18.6 %; Mean Corpuscular Hemoglobin 30.9 pg (25-34); Mean Corpuscular Hgb Conc 31.3 g/dL (32-36); Mean Corpuscular Volume 98.7 fL (80-100); Mean Platelet Volume 9.5 fL (7.4-10.4); Monocytes # (auto) 1.07 K/uL (0.11-0.59); Monocytes % (auto) 8.2 %; Neutrophils # (auto) 9.16 K/uL (1.4-6.5); Neutrophils % (auto) 70.4 %; Platelet Count 256 K/uL (130-400); RDW Coefficient of Variation 14.8 % (11.5-14.5); RDW Standard Deviation 52.5 fL (36.4-46.3); Red Blood Count 3.11 M/uL (4.7-6.1); White Blood Count 13.03 K/uL (4.8-10.8)
[2020-04-03] MEDS: ALBUT/IPRATROP 3MG/0.5MG NEB 3 ML VIAL INH SCH ×3 (07:04→19:27)
[2020-04-03] MEDS: SODIUM CHLOR 7% 4 ML NEB INH SCH ×2 (07:05→19:13)
[2020-04-03 07:06] LABS: Est GFR (African American) 48.9; Potassium 4.4 mmol/L (3.5-5.1)
[2020-04-03 07:07] LABS: Calcium 9.4 mg/dl (8.5-10.1); Creatinine Clr Calc Pharmacy 34.3 ml/min; Est GFR (Non-African American) 42.2
[2020-04-03] MEDS: MAGNESIUM HYDROXIDE SUSP 30 ML UDC PO PRN (08:14)
[2020-04-03] MEDS: POLYETHYLENE (MIRALAX) 17 GM PACK PO SCH (08:14)
[2020-04-03] MEDS: METOPROLOL SUCC 50MG EXT REL TAB PO SCH (08:15)
[2020-04-03] MEDS: POTASSIUM CHLORIDE 10 MEQ TABCR PO SCH (08:17)
[2020-04-03] MEDS: FOLIC ACID 400 MCG TAB PO SCH (08:17)
[2020-04-03] MEDS: MONTELUKAST SODIUM 10 MG TABLET PO SCH (08:17)
[2020-04-03] MEDS: predniSONE 10 MG TABLET PO SCH (08:17)
[2020-04-03] MEDS: APIXABAN 2.5 MG TAB PO SCH ×2 (08:17→22:04)
[2020-04-03] MEDS: guaiFENesin 600 MG TABCR PO SCH ×2 (08:17→22:05)
[2020-04-03] MEDS: FLUTICASONE/VILANTEROL 100/25MCG 14 PUFFS/INHALER INH SCH (08:18)
[2020-04-03] MEDS: UMECLIDINIUM BROMIDE 62.5MCG/BLISTER 7 PUFFS/INHALER INH SCH (08:18)
--- NOTE | 2020-04-03 12:40 | Hospitalist Progress Note ---
Date of Service April 03, 2020 Assessment & Plan (1) Urinary tract infection: 85 yo M PMHx COPD, AFib on Eliquis, COPD, Hx of chronic indwelling Tong admitted for complicated Pseudomonas UTI Complicated UTI 2/2 chronic indwelling tong: - Patient with Pseudomonas sensitive to ceftazidime on urine culture in outpatient setting. - PICC line placed 03/31. - Patient has no interest in being placed at [facility]; exploring further outpatient options for receiving antibiotics - Continue IV ceftazidime for total of 7 days (Last dose Friday morning) COPD: Chronic respiratory failure with hypoxia - continue supplemental oxygen - Continue albuterol prn, nebs prn, Dulera, montelukast, prednisone. Paroxysmal AFib: - Continue home metoprolol, Eliquis. HLD: - Continue home pravastatin. Sleep disturbance: - Continue home trazodone. Constipation: - had large bowel movement this morning Code Status: FULL CODE FEN/GI: Heart Healthy DVT ppx: Eliquis (2) COPD (chronic obstructive pulmonary disease): (3) Chronic indwelling Tong catheter: (4) Weakness: (5) Anticoagulant long-term use: (6) Atrial fibrillation: (7) Intertrigo: Admission and Anticipated Discharge Date Admission Date: March 31, 2020 Supervising Physician Co-Signing Physician Notes Resident Physician Supervision Note: I independently interviewed and examined the patient and verified the escamilla history and physical, reviewed labs and image studies, discussed the case with the resident Dr. Pereira and agree with the findings and care plan. Subjective Patient feels well this morning, finally had a bowel movement this morning and this relieved some of the feeling of "build-up" that he had and allowed him to feel like he was closer to his normal self again. He states that he does not have any interest in attending physical therapy session nor does he think he should have to go to one as he has numerous resources at home that allow him to do what he needs to do on a daily basis. Called and spoke with Ally regarding the ability/availability to give antibiotics at home. She does not feel comfortable with providing this kind of care at home. Previously stated to them he has no interest in going to [facility], and would prefer to "go home and surrounded by his family." Review of Systems Review of Systems: All systems reviewed & are unremarkable except as noted in Subjective Physical Exam Constitutional: WD/WN, vitals as above Eyes: PERRL, conjunctivae normal, anicteric sclerae Respiratory: normal respiratory effort; no respiratory distress, no labored breathing and no retractions Cardiovascular: Rate/Rhythm: regular rate and + irregularly irregular Heart Sounds: normal S1 and normal S2; no gallop, no murmur and no cardiac rub Vessels: no JVD Gastrointestinal (Abdomen): normal bowel sounds, soft, nontender, no hepatosplenomegaly Skin: no rashes, warm and dry Neurologic: patellar DTR's 2+ bilat, sensation intact Psychiatric: A+Ox3, euthymic affect Genitourinary: tong catheter in place Results & Data Results & Data ([facility]) Vital Signs (Past 12 Hours) Vital Signs Pulse Resp Pulse Ox 04/03/20 07:05 87 16 94 Laboratory Results 04/03/20 04/03/20 Range/Units 06:18 06:18 WBC 13.03 H (4.8-10.8) K/uL RBC 3.11 L (4.7-6.1) M/uL Hgb 9.6 L (14.0-18.0) g/dL Hct 30.7 L (42-52) % MCV 98.7 (80-100) fL MCH 30.9 (25-34) pg MCHC 31.3 L (32-36) g/dL RDW Std Deviation 52.5 H (36.4-46.3) fL RDW Coeff of Ashley 14.8 H (11.5-14.5) % Plt Count 256 (130-400) K/uL MPV 9.5 (7.4-10.4) fL Immature Gran % (Auto) 1.3 % Neut % (Auto) 70.4 % Lymph % (Auto) 18.6 % [place] % (Auto) 8.2 % Eos % (Auto) 1.3 % Baso % (Auto) 0.2 % Neut # (Auto) 9.16 H (1.4-6.5) K/uL Lymph # (Auto) 2.43 (1.2-3.4) K/uL [place] # (Auto) 1.07 H (0.11-0.59) K/uL Eos # (Auto) 0.17 (0-0.5) K/uL Baso # (Auto) 0.03 (0-0.2) K/uL Immature Gran # (Auto) 0.17 H (0.00-0.02) K/uL Sodium 138 (136-145) mmol/L Potassium 4.4 (3.5-5.1) mmol/L Chloride 105 (98-107) mmol/L Carbon Dioxide 28 (21-32) mmol/L Anion Gap 5.0 (3-11) BUN 28 H (7-18) mg/dl Creatinine 1.49 H (0.6-1.4) mg/dl Est Cr Clr Drug Dosing 34.3 ml/min Est GFR ( Amer) 48.9 Est GFR (Non-Af Amer) 42.2 BUN/Creatinine Ratio 19.0 (10-20) Glucose 90 (70-99) mg/dl Calcium 9.4 (8.5-10.1) mg/dl Medications Administered Current Inpatient Medications Acetaminophen (Tylenol) 650 mg PO Q4H PRN PRN Reason: Pain or Fever Stop: 04/30/20 21:41 Last Admin: 04/02/20 11:08 Dose: 650 mg Documented by: Al Hydrox/Mg Hydrox/Simethicone (Maalox) 15 ml PO Q4H PRN PRN Reason: Dyspepsia Stop: 04/30/20 21:41 Albuterol (Duoneb) 3 ml INH TIDR [facility] Stop: 05/01/20 06:59 Last Admin: 04/03/20 07:04 Dose: 3 ml Documented by: Apixaban (Eliquis) 2.5 mg PO BID [facility] Stop: 04/30/20 22:59 Last Admin: 04/03/20 08:17 Dose: 2.5 mg Documented by: Benzonatate (Tessalon Perle) 100 mg PO BID PRN PRN Reason: Cough Stop: 04/30/20 21:41 Last Admin: 04/01/20 00:26 Dose: 100 mg Documented by: Fluticasone/Vilanterol (Breo Ellipta 100/25 Mcg Inh) 1 puffs INH DAILY [facility] Stop: 05/01/20 08:59 Last Admin: 04/03/20 08:18 Dose: 1 puffs Documented by: Folic Acid (Folvite) 800 mcg PO QAM [facility] Stop: 07/27/20 08:59 Last Admin: 04/03/20 08:17 Dose: 800 mcg Documented by: Guaifenesin (Mucinex) 600 mg PO BID [facility] Stop: 04/30/20 22:59 Last Admin: 04/03/20 08:17 Dose: 600 mg Documented by: Heparin Sodium (Beef Lung) (Heparin Sod 10 Unit/Ml Flush) 5 ml FLUSH PRN PRN PRN Reason: Flush Stop: 05/01/20 00:34 Last Admin: 04/03/20 06:50 Dose: 5 ml Documented by: Hydrocortisone (Hydrocortisone 1%) 1 appln EXT TID PRN PRN Reason: severe/refractory itching Stop: 05/02/20 17:56 Last Admin: 04/03/20 03:25 Dose: 1 appln Documented by: Ceftazidime 2,000 mg/ Dextrose 60 mls @ 120 mls/hr IV Q12H [facility] Stop: 04/11/20 06:59 Magnesium Hydroxide (Milk Of Magnesia) 30 ml PO Q12H PRN PRN Reason: Constipation Stop: 04/30/20 21:41 Last Admin: 04/03/20 08:14 Dose: 30 ml Documented by: Melatonin (Melatonin) 9 mg PO [facility] Stop: 05/02/20 20:59 Last Admin: 04/02/20 22:04 Dose: 9 mg Documented by: Metoprolol Succinate (Toprol Xl) 50 mg PO [facility] Stop: 05/01/20 08:59 Last Admin: 04/03/20 08:15 Dose: 50 mg Documented by: Montelukast Sodium (Singulair) 10 mg PO [facility] Stop: 05/01/20 08:59 Last Admin: 04/03/20 08:17 Dose: 10 mg Documented by: Multi-Ingredient Cream (Hydrocerin) 1 appln EXT QID PRN PRN Reason: Itching Stop: 05/02/20 17:56 Nystatin (Mycostatin) 1 appln EXT Q8H [facility] Stop: 05/02/20 11:14 Last Admin: 04/03/20 12:03 Dose: 1 appln Documented by: Ondansetron HCl (Zofran) 4 mg IV Q6H PRN PRN Reason: Nausea Stop: 04/30/20 21:41 Oxycodone HCl (Roxicodone Immediate Rel) 5 mg PO [facility] Stop: 04/14/20 22:29 Last Admin: 04/02/20 22:05 Dose: 5 mg Documented by: Polyethylene Glycol (Miralax Powder Packet) 17 gm PO DAILY [facility] Stop: 05/01/20 08:59 Last Admin: 04/03/20 08:14 Dose: 17 gm Documented by: Potassium Chloride (Klor-Con M10) 10 meq PO Q2D [facility] Stop: 05/01/20 08:59 Last Admin: 04/03/20 08:17 Dose: 10 meq Documented by: Pravastatin Sodium (Pravachol) 20 mg PO QPM [facility] Stop: 04/30/20 22:59 Last Admin: 04/02/20 22:05 Dose: 20 mg Documented by: Prednisone (Prednisone) 10 mg PO QAM [facility] Stop: 05/01/20 08:59 Last Admin: 04/03/20 08:17 Dose: 10 mg Documented by: Sodium Chloride (Sodium Chlor 7% Neb Solution) 4 ml INH BIDR [facility] Stop: 04/30/20 22:59 Last Admin: 04/03/20 07:05 Dose: 4 ml Documented by: Sodium Chloride ([place] Nasal) 1 sprays NA NOW PRN PRN Reason: Dryness Stop: 05/01/20 16:16 Last Admin: 04/01/20 16:26 Dose: 1 sprays Documented by: Trazodone HCl (Desyrel) 50 mg PO HS PRN PRN Reason: Insomnia Stop: 04/30/20 21:41 Last Admin: 04/03/20 03:24 Dose: 50 mg Documented by: Umeclidinium [place] (Incruse Ellipta) 1 puffs INH DAILY [facility] Stop: 05/01/20 08:59 Last Admin: 04/03/20 08:18 Dose: 1 puffs Documented by: Resident Activity Tracking Resident Involvement: Resident Care Provided Care Provided: Adult Hospital Medicine (1) Urinary tract infection Hematuria presence: without hematuria Urinary tract infection type: site unspecified Qualified Code(s): N39.0 - Urinary tract infection, site not specified (2) Atrial fibrillation Atrial fibrillation type: chronic Qualified Code(s): I48.2 - Chronic atrial fibrillation
[2020-04-03] MEDS: ACETAMINOPHEN 325 MG TAB PO PRN (16:49)
[2020-04-03] MEDS: OXYCODONE HCL IR 5 MG TAB (IMMEDIATE RELEASE) PO SCH (22:04)
[2020-04-03] MEDS: PRAVASTATIN SOD 20 MG TAB PO SCH (22:04)
[2020-04-03] MEDS: MELATONIN 3 MG TAB PO SCH (22:05)
[2020-04-04] MEDS: NYSTATIN POWDER 15GM BTL EXT SCH ×3 (03:35→19:52)
[2020-04-04] MEDS: ACETAMINOPHEN 325 MG TAB PO PRN ×2 (06:09→14:34)
[2020-04-04 06:33] LABS: Basophils # (auto) 0.02 K/uL (0-0.2); Basophils % (auto) 0.2 %; Eosinophils # (auto) 0.23 K/uL (0-0.5); Hematocrit (blood only) 28.2 % (42-52); Hemoglobin 8.8 g/dL (14.0-18.0); Immature Granulocytes # (auto) 0.21 K/uL (0.00-0.02); Immature Granulocytes % (auto) 1.8 %; Lymphocytes # (auto) 1.99 K/uL (1.2-3.4); Lymphocytes % (auto) 17.4 %; Mean Corpuscular Hemoglobin 31.1 pg (25-34); Mean Corpuscular Hgb Conc 31.2 g/dL (32-36); Mean Corpuscular Volume 99.6 fL (80-100); Mean Platelet Volume 9.6 fL (7.4-10.4); Monocytes # (auto) 1.06 K/uL (0.11-0.59); Monocytes % (auto) 9.3 %; Neutrophils # (auto) 7.93 K/uL (1.4-6.5); Neutrophils % (auto) 69.3 %; Platelet Count 257 K/uL (130-400); RDW Coefficient of Variation 14.7 % (11.5-14.5); RDW Standard Deviation 53.2 fL (36.4-46.3); Red Blood Count 2.83 M/uL (4.7-6.1); White Blood Count 11.44 K/uL (4.8-10.8)
[2020-04-04] MEDS: SODIUM CHLOR 7% 4 ML NEB INH SCH ×2 (06:52→19:28)
[2020-04-04] MEDS: ALBUT/IPRATROP 3MG/0.5MG NEB 3 ML VIAL INH SCH ×3 (06:52→19:29)
[2020-04-04 07:04] LABS: Calcium 9.3 mg/dl (8.5-10.1); Est GFR (African American) 43.2; Est GFR (Non-African American) 37.3; Potassium 4.6 mmol/L (3.5-5.1)
[2020-04-04] MEDS: FLUTICASONE/VILANTEROL 100/25MCG 14 PUFFS/INHALER INH SCH (07:40)
[2020-04-04] MEDS: UMECLIDINIUM BROMIDE 62.5MCG/BLISTER 7 PUFFS/INHALER INH SCH (07:41)
[2020-04-04] MEDS: MONTELUKAST SODIUM 10 MG TABLET PO SCH (07:41)
[2020-04-04] MEDS: predniSONE 10 MG TABLET PO SCH (07:42)
[2020-04-04] MEDS: APIXABAN 2.5 MG TAB PO SCH ×2 (07:42→22:30)
[2020-04-04] MEDS: METOPROLOL SUCC 50MG EXT REL TAB PO SCH (07:42)
[2020-04-04] MEDS: guaiFENesin 600 MG TABCR PO SCH ×2 (07:42→22:28)
[2020-04-04] MEDS: FOLIC ACID 400 MCG TAB PO SCH (07:43)
[2020-04-04] MEDS: POLYETHYLENE (MIRALAX) 17 GM PACK PO SCH (07:43)
--- NOTE | 2020-04-04 11:41 | Hospitalist Progress Note ---
Date of Service April 04, 2020 Assessment & Plan (1) Urinary tract infection: 85 yo M PMHx COPD, AFib on Eliquis, COPD, Hx of chronic indwelling Tong admitted for complicated Pseudomonas UTI Complicated UTI 2/2 chronic indwelling tong: - Patient with Pseudomonas sensitive to ceftazidime on urine culture in outpatient setting. - PICC line placed 03/31. - Patient has no interest in being placed at [facility]; exploring further outpatient options for receiving antibiotics - Continue IV ceftazidime for total of 7 days (Last dose Friday morning) - CM working with Home Health to set-up home antibiotic treatments COPD: - continue supplemental oxygen - Continue albuterol prn, nebs prn, Dulera, montelukast, prednisone. Chronic respiratory failure with hypoxia - continue [place] O2 Paroxysmal AFib: - Continue home metoprolol, Eliquis. HLD: - Continue home pravastatin. Sleep disturbance: - Continue home trazodone. Constipation: - had large bowel movement this morning FEN/GI: Heart Healthy DVT ppx: Eliquis Code Status: Full (2) COPD (chronic obstructive pulmonary disease): (3) Chronic indwelling Tong catheter: (4) Weakness: (5) Anticoagulant long-term use: (6) Atrial fibrillation: (7) Intertrigo: Admission and Anticipated Discharge Date Admission Date: March 31, 2020 Supervising Physician Co-Signing Physician Notes Resident Physician Supervision Note: I independently interviewed and examined the patient and verified the escamilla history and physical, reviewed labs and image studies, discussed the case with the resident Dr. Pereira and agree with the findings and care plan. Subjective Patient feels well this morning, finally had a three bowel movements yesterday and feels like his abdominal discomfort has greatly decreased. Review of Systems Review of Systems: All systems reviewed & are unremarkable except as noted in Subjective Physical Exam Constitutional: WD/WN, vitals as above Eyes: PERRL, conjunctivae normal, anicteric sclerae Respiratory: normal respiratory effort; no respiratory distress and no labored breathing Cardiovascular: Rate/Rhythm: regular rate and + irregularly irregular Heart Sounds: normal S1 and normal S2; no gallop, no murmur and no cardiac rub Vessels: no JVD Gastrointestinal (Abdomen): normal bowel sounds, soft, nontender, no hepatosplenomegaly Skin: no rashes, warm and dry Neurologic: patellar DTR's 2+ bilat, sensation intact Psychiatric: A+Ox3, euthymic affect Results & Data Results & Data ([facility]) Vital Signs (Past 12 Hours) Vital Signs Temp Pulse Resp BP Pulse Ox 04/04/20 06:54 87 18 93 04/04/20 06:42 36.5 C 84 16 135/82 98 Laboratory Results 04/04/20 04/04/20 Range/Units 06:07 06:07 WBC 11.44 H (4.8-10.8) K/uL RBC 2.83 L (4.7-6.1) M/uL Hgb 8.8 L (14.0-18.0) g/dL Hct 28.2 L (42-52) % MCV 99.6 (80-100) fL MCH 31.1 (25-34) pg MCHC 31.2 L (32-36) g/dL RDW Std Deviation 53.2 H (36.4-46.3) fL RDW Coeff of [place] 14.7 H (11.5-14.5) % Plt Count 257 (130-400) K/uL MPV 9.6 (7.4-10.4) fL Immature Gran % (Auto) 1.8 % Neut % (Auto) 69.3 % Lymph % (Auto) 17.4 % [place] % (Auto) 9.3 % Eos % (Auto) 2.0 % Baso % (Auto) 0.2 % Neut # (Auto) 7.93 H (1.4-6.5) K/uL Lymph # (Auto) 1.99 (1.2-3.4) K/uL [place] # (Auto) 1.06 H (0.11-0.59) K/uL Eos # (Auto) 0.23 (0-0.5) K/uL Baso # (Auto) 0.02 (0-0.2) K/uL Immature Gran # (Auto) 0.21 H (0.00-0.02) K/uL Sodium 138 (136-145) mmol/L Potassium 4.6 (3.5-5.1) mmol/L Chloride 105 (98-107) mmol/L Carbon Dioxide 28 (21-32) mmol/L Anion Gap 5.0 (3-11) BUN 36 H (7-18) mg/dl Creatinine 1.65 H (0.6-1.4) mg/dl Est Cr Clr Drug Dosing 31.0 ml/min Est GFR ( Amer) 43.2 Est GFR (Non-Af Amer) 37.3 BUN/Creatinine Ratio 22.0 H (10-20) Glucose 90 (70-99) mg/dl Calcium 9.3 (8.5-10.1) mg/dl Medications Administered Current Inpatient Medications Acetaminophen (Tylenol) 650 mg PO Q4H PRN PRN Reason: Pain or Fever Stop: 04/30/20 21:41 Last Admin: 04/04/20 06:09 Dose: 650 mg Documented by: Al Hydrox/Mg Hydrox/Simethicone (Maalox) 15 ml PO Q4H PRN PRN Reason: Dyspepsia Stop: 04/30/20 21:41 Albuterol (Duoneb) 3 ml INH TIDR [facility] Stop: 05/01/20 06:59 Last Admin: 04/04/20 06:52 Dose: 3 ml Documented by: Apixaban (Eliquis) 2.5 mg PO BID [facility] Stop: 04/30/20 22:59 Last Admin: 04/04/20 07:42 Dose: 2.5 mg Documented by: Benzonatate (Tessalon Perle) 100 mg PO BID PRN PRN Reason: Cough Stop: 04/30/20 21:41 Last Admin: 04/01/20 00:26 Dose: 100 mg Documented by: Fluticasone/Vilanterol (Breo Ellipta 100/25 Mcg Inh) 1 puffs INH DAILY [facility] Stop: 05/01/20 08:59 Last Admin: 04/04/20 07:40 Dose: 1 puffs Documented by: Folic Acid (Folvite) 800 mcg PO QAM [facility] Stop: 05/01/20 08:59 Last Admin: 04/04/20 07:43 Dose: 800 mcg Documented by: Guaifenesin (Mucinex) 600 mg PO BID [facility] Stop: 04/30/20 22:59 Last Admin: 04/04/20 07:42 Dose: 600 mg Documented by: Heparin Sodium (Beef Lung) (Heparin Sod 10 Unit/Ml Flush) 5 ml FLUSH PRN PRN PRN Reason: Flush Stop: 05/01/20 00:34 Last Admin: 04/04/20 06:45 Dose: 5 ml Documented by: Hydrocortisone (Hydrocortisone 1%) 1 appln EXT TID PRN PRN Reason: severe/refractory itching Stop: 05/02/20 17:56 Last Admin: 04/03/20 03:25 Dose: 1 appln Documented by: Ceftazidime 2,000 mg/ Dextrose 60 mls @ 120 mls/hr IV Q12H [facility] Stop: 04/11/20 06:59 Last Infusion: 04/04/20 06:41 Dose: Infused Documented by: Magnesium Hydroxide (Milk Of Magnesia) 30 ml PO Q12H PRN PRN Reason: Constipation Stop: 04/30/20 21:41 Last Admin: 04/03/20 08:14 Dose: 30 ml Documented by: Melatonin (Melatonin) 9 mg PO [facility] Stop: 05/02/20 20:59 Last Admin: 04/03/20 22:05 Dose: 9 mg Documented by: Metoprolol Succinate (Toprol Xl) 50 mg PO [facility] Stop: 05/01/20 08:59 Last Admin: 04/04/20 07:42 Dose: 50 mg Documented by: [facility]elukast Sodium ([facility]ul[facility]) [facility] Stop: 05/01/20 08:59 Last Admin: 04/04/20 07:41 Dose: 10 mg Documented by: Multi-Ingredient Cream (Hydrocerin) 1 appln EXT QID PRN PRN Reason: Itching Stop: 05/02/20 17:56 Last Admin: 04/04/20 03:37 Dose: 1 appln Documented by: Nystatin (Mycostatin) 1 appln EXT Q8H [facility] Stop: 05/02/20 11:14 Last Admin: 04/04/20 09:52 Dose: 1 appln Documented by: Ondansetron HCl (Zofran) 4 mg IV Q6H PRN PRN Reason: Nausea Stop: 04/30/20 21:41 Oxycodone HCl (Roxicodone Immediate Rel) 5 mg PO [facility] Stop: 04/14/20 22:29 Last Admin: 04/03/20 22:04 Dose: 5 mg Documented by: Polyethylene Glycol (Miralax Powder Packet) 17 gm PO DAILY [facility] Stop: 05/01/20 08:59 Last Admin: 04/04/20 07:43 Dose: Not Given Documented by: Potassium Chloride (Klor-Con M10) 10 meq PO Q2D [facility] Stop: 05/01/20 08:59 Last Admin: 04/03/20 08:17 Dose: 10 meq Documented by: Pravastatin Sodium (Pravachol) 20 mg PO QPM [facility] Stop: 04/30/20 22:59 Last Admin: 04/03/20 22:04 Dose: 20 mg Documented by: Prednisone (Prednisone) 10 mg PO QAM [facility] Stop: 05/01/20 08:59 Last Admin: 04/04/20 07:42 Dose: 10 mg Documented by: Sodium Chloride (Sodium Chlor 7% Neb Solution) 4 ml INH BIDR [facility] Stop: 04/30/20 22:59 Last Admin: 04/04/20 06:52 Dose: 4 ml Documented by: Sodium Chloride ([place] Nasal) 1 sprays NA NOW PRN PRN Reason: Dryness Stop: 05/01/20 16:16 Last Admin: 04/01/20 16:26 Dose: 1 sprays Documented by: Trazodone HCl (Desyrel) 50 mg PO HS PRN PRN Reason: Insomnia Stop: 04/30/20 21:41 Last Admin: 04/03/20 03:24 Dose: 50 mg Documented by: Umeclidinium [place] (Incruse Ellipta) 1 puffs INH DAILY [facility] Stop: 05/01/20 08:59 Last Admin: 04/04/20 07:41 Dose: 1 puffs Documented by: Resident Activity Tracking Resident Involvement: Resident Care Provided Care Provided: Adult Hospital Medicine (1) Urinary tract infection Hematuria presence: without hematuria Urinary tract infection type: site unspecified Qualified Code(s): N39.0 - Urinary tract infection, site not specified (2) Atrial fibrillation Atrial fibrillation type: chronic Qualified Code(s): I48.2 - Chronic atrial fibrillation
[2020-04-04] MEDS: ALUMINUM/MAGNESIUM SUSP 30 ML UDC PO PRN (17:54)
[2020-04-04] MEDS: OXYCODONE HCL IR 5 MG TAB (IMMEDIATE RELEASE) PO SCH (22:28)
[2020-04-04] MEDS: MELATONIN 3 MG TAB PO SCH (22:29)
[2020-04-04] MEDS: PRAVASTATIN SOD 20 MG TAB PO SCH (22:30)
[2020-04-04] MEDS: HYDROCORTISONE 1% CRM 30 GM TUBE EXT PRN (22:30)
[2020-04-05] MEDS: NYSTATIN POWDER 15GM BTL EXT SCH ×2 (03:02→10:59)
[2020-04-05] MEDS: HYDROCORTISONE 1% CRM 30 GM TUBE EXT PRN (03:55)
[2020-04-05] MEDS: ACETAMINOPHEN 325 MG TAB PO PRN ×3 (04:11→16:15)
[2020-04-05 06:36] LABS: Basophils # (auto) 0.02 K/uL (0-0.2); Basophils % (auto) 0.2 %; Eosinophils # (auto) 0.25 K/uL (0-0.5); Eosinophils % (auto) 2.1 %; Hematocrit (blood only) 27.9 % (42-52); Hemoglobin 8.9 g/dL (14.0-18.0); Immature Granulocytes # (auto) 0.14 K/uL (0.00-0.02); Immature Granulocytes % (auto) 1.2 %; Lymphocytes # (auto) 2.27 K/uL (1.2-3.4); Lymphocytes % (auto) 19.5 %; Mean Corpuscular Hemoglobin 31.9 pg (25-34); Mean Corpuscular Hgb Conc 31.9 g/dL (32-36); Mean Platelet Volume 9.9 fL (7.4-10.4); Monocytes # (auto) 1.24 K/uL (0.11-0.59); Monocytes % (auto) 10.6 %; Neutrophils # (auto) 7.73 K/uL (1.4-6.5); Neutrophils % (auto) 66.4 %; Platelet Count 274 K/uL (130-400); RDW Coefficient of Variation 14.7 % (11.5-14.5); RDW Standard Deviation 53.3 fL (36.4-46.3); Red Blood Count 2.79 M/uL (4.7-6.1); White Blood Count 11.65 K/uL (4.8-10.8)
[2020-04-05] MEDS: ALBUT/IPRATROP 3MG/0.5MG NEB 3 ML VIAL INH SCH ×2 (06:49→13:10)
[2020-04-05] MEDS: SODIUM CHLOR 7% 4 ML NEB INH SCH (06:49)
[2020-04-05 07:00] LABS: BUN Creatinine Ratio 18.8 (10-20); Calcium 9.3 mg/dl (8.5-10.1); Creatinine Clr Calc Pharmacy 29.7 ml/min; Est GFR (African American) 41.1; Est GFR (Non-African American) 35.5; Potassium 4.6 mmol/L (3.5-5.1)
[2020-04-05] MEDS: guaiFENesin 600 MG TABCR PO SCH (08:34)
[2020-04-05] MEDS: APIXABAN 2.5 MG TAB PO SCH (08:34)
[2020-04-05] MEDS: METOPROLOL SUCC 50MG EXT REL TAB PO SCH (08:35)
[2020-04-05] MEDS: FOLIC ACID 400 MCG TAB PO SCH (08:35)
[2020-04-05] MEDS: POTASSIUM CHLORIDE 10 MEQ TABCR PO SCH (08:35)
[2020-04-05] MEDS: POLYETHYLENE (MIRALAX) 17 GM PACK PO SCH (08:35)
[2020-04-05] MEDS: MONTELUKAST SODIUM 10 MG TABLET PO SCH (08:35)
[2020-04-05] MEDS: predniSONE 10 MG TABLET PO SCH (08:36)
[2020-04-05] MEDS: FLUTICASONE/VILANTEROL 100/25MCG 14 PUFFS/INHALER INH SCH (08:36)
[2020-04-05] MEDS: UMECLIDINIUM BROMIDE 62.5MCG/BLISTER 7 PUFFS/INHALER INH SCH (08:36)
[2020-04-05] MEDS ORDERED: SODIUM CHLORIDE 0.9% 1000ML 1,000 ML IV ONE (09:32)
[2020-04-05 15:40] LABS: BUN Creatinine Ratio 18.4 (10-20); Calcium 8.9 mg/dl (8.5-10.1); Creatinine Clr Calc Pharmacy 30.1 ml/min; Est GFR (African American) 41.7; Potassium 5.1 mmol/L (3.5-5.1)
--- NOTE | 2020-04-05 15:51 | Discharge Summary ---
Date of Service April 05, 2020 Admission HPI Per Admitting Provider Mr. Leo Garcia is a 85 y/o male with past medical hx of paroxysmal afib, chronic indwelling tong cath, CHF, BPH, HTN, HLD, CKD3, COPD who presented to [facility] ED for positive urinary culture. He has a chronic indwelling tong. He had an outpt urinary culture that was positive for Pseudomonas. He was currently on Cipro PO as outpt. Sensitivities came back with resistance to Cipro. He was given Ceftazidime in ED per susceptibility report. He has no current complaints, no chest pain, no shortness of breath, no fever/chills, nausea, vomiting. He was planned to get a PICC line at [facility] today and get IV abx at residence but was late getting there and then went to ED. Principal Diagnosis Complicated UTI Discharge Exam Constitutional WD/WN, vitals as above Eyes PERRL, conjunctivae normal, anicteric sclerae Respiratory normal respiratory effort, lungs clear to auscultation normal respiratory effort; no respiratory distress and no labored breathing Cardiovascular Rate/Rhythm: regular rate and + irregularly irregular Heart Sounds: normal S1 and normal S2; no gallop, no murmur and no cardiac rub Vessels: no JVD Gastrointestinal (Abdomen) normal bowel sounds, soft, nontender, no hepatosplenomegaly Skin no rashes, warm and dry + turgor decreased Neurologic patellar DTR's 2+ bilat, sensation intact Psychiatric A+Ox3, euthymic affect Discharge Data Allergies Allergy/AdvReac Type Severity Reaction Status Date / Time tamsulosin Allergy Unknown Unknown Verified 03/16/20 09:22 cilostazol AdvReac Intermediate dizziness, Verified 04/01/20 08:25 palpitations diltiazem AdvReac Intermediate dizziness, Verified 04/01/20 08:25 palpitations simvastatin AdvReac Mild dizziness Verified 04/01/20 08:25 Consultations 03/31/20 19:23 ED Decision to Admit Stat 03/31/20 21:42 Consult Case Management - Discharge Planning Routine Hospital Course (1) Urinary tract infection: 85 yo M PMHx COPD, AFib on Eliquis, COPD, Hx of chronic indwelling Tong admitted for complicated Pseudomonas UTI Complicated UTI 2/2 chronic indwelling tong: - Patient with Pseudomonas sensitive to ceftazidime on urine culture in outpatient setting. - PICC line placed 03/31. - Patient has no interest in being placed at [facility]; exploring further outpatient options for receiving antibiotics - Continue IV ceftazidime for total of 7 days (Last dose Friday) - CM working with Home Health to set-up home antibiotic treatments MOHAN: - patient self admits to drinking 12oz of water a day in addition to two cups of tea and one cup of coffee daily - creatinine 1.7 on discharge, improved with increased hydration - advised patient to continue to improve hydration with goals of 72oz of water daily - Echo from January 2019 demonstrated EF of 55% Total Time Total Time Spent Total Time Spent (In Minutes): 30 Discharge Plan Discharge Items Patient Disposition: Home - Home Health Services Reason For Visit: PNEUMONIA,CELLULITIS Discharge Diagnosis: Complicated Pseudomonas UTI 2/2 chronic indwelling tong Activity: Per Instructions section Non-emergency contact: Primary Care Provider Call non-emergency contact if: your symptoms worsen and your temperature is above 101 Follow-up/Referrals: Guerrero Morse MD [Primary Care Provider] - 04/13/20 2:00 pm (Your hospital follow up is scheduled for 04/13/20 at 2 pm with Fatmata Godoy) Diet: Heart Healthy Addtl Attending Provider Instructions: You were seen and admitted following a study of your urine that demonstrated concern for an infection requiring IV antibiotics. During this admission you were started on the appropriate antibiotics and infusions of the antibiotic were set up for you to continue to receive them at home per your request. You will continue to receive these antibiotics twice a day with your last dose of the antibiotic happening Friday. Additionally, during your stay it was noticed that you likely are not drinking enough water. You should be aiming to drink 72 ounces of water each day. This was noticed from a slight increase in your kidney numbers that improved once we started to give you more fluids and encouraged you to drink more frequently. It is important to continue to do this going forward. Pending Studies at Discharge: No Stand-Alone Forms: My [facility] [employer], Smoking Cessation Medications and DC Order Prescriptions: Continued pravastatin 20 mg tablet 20 mg PO QPM Qty: 90 RF: 3 Eliquis 2.5 mg tablet 2.5 mg PO BID Qty: 180 RF: 1 montelukast 10 mg tablet 10 mg PO QAM Qty: 90 RF: 1 Dulera 200-5 mcg/actuation HFA aerosol inhaler 1 puff INHALATION Q12H Qty: 13 RF: 5 ipratropium-albuterol 0.5 mg-3 mg(2.5 mg base)/3 mL solution for nebulization 3 ml Inhalation TID Qty: 180 RF: 5 furosemide 40 mg tablet 20 mg PO Q2D Qty: 30 RF: 3 nitrofurantoin macrocrystal 50 mg capsule 50 mg PO QAM Qty: 30 RF: 5 sodium chloride 7 % solution for nebulization 4 ml INH BID Qty: 240 RF: 2 metoprolol succinate 50 mg tablet extended release 24 hr 50 mg PO QAM Qty: 90 RF: 3 potassium chloride 10 mEq capsule, extended release 10 meq PO Q2D Qty: 30 RF: 3 tiotropium bromide [Spiriva Respimat] 2.5 mcg/actuation mist 2 puffs inhalation DAILY Qty: 4 RF: 1 ciprofloxacin HCl [Cipro] 250 mg tablet 250 mg PO BID Qty: 20 RF: 0 folic acid 800 mcg Tablet 800 mcg PO QAM RF: 0 lorazepam 0.5 mg tablet 0.5 mg PO DAILY PRN (Reason: Anxiety) RF: 0 benzonatate 100 mg capsule 100 mg PO BID PRN (Reason: Cough) RF: 0 oxycodone 5 mg tablet 5 mg PO HS RF: 0 guaifenesin [Mucinex] 600 mg tablet extended release 12hr 600 mg PO BID RF: 0 melatonin 10 mg Tablet 10 mg PO HS RF: 0 diphenhydramine HCl [Benadryl] 25 mg Capsule 25 mg PO HS RF: 0 albuterol sulfate 90 mcg/actuation HFA aerosol inhaler 2 puff inhalation QID PRN (Reason: Shortness Of Breath Or Wheezing) RF: 0 prednisone 10 mg tablet 10 mg PO QAM RF: 0 cholecalciferol (vitamin D3) [Vitamin D3] 2,000 unit capsule 2,000 units PO QAM RF: 0 cyanocobalamin (vitamin B-12) 1,000 mcg capsule 1,000 mcg PO QAM RF: 0 Discharge Orders: Discharge Order (Routine); Ordered 04/05/20 Ordered By: Blaze Pereira Admission Data Admit Date/Time: 03/31/20 19:59 Attending Provider: Evie Cabezas Admit Provider: Forest Griffith Primary Care Provider: Guerrero Morse Other Providers: Marii Mandujano ; [facility] ; Tommie Salgado ; [facility] Other Interventions: Discharge Summary Assessment (RN) Last Done: 04/05/20 16:08 DC Date/Time DO NOT enter until pt leaves facility: 04/05/20 16:58 Supervising Physician Co-Signing Physician Notes Resident Physician Supervision Note: I independently interviewed and examined the patient and verified the escamilla history and physical, reviewed labs and image studies, discussed the case with the resident Dr. Pereira and agree with the findings and care plan. Resident Activity Tracking Resident Involvement: Resident Care Provided Care Provided: Adult Hospital Medicine
[2020-04-05] MEDS: ALUMINUM/MAGNESIUM SUSP 30 ML UDC PO PRN (16:15)
--- NOTE | 2020-04-11 15:57 | Coding Query ---
CODING QUERY To promote full compliance with coding requirements relating to patient care, provider participation is requested in all cases of electrophysiology tech uncertainty. Please assist us with the question(s) below: Please clarify the meaning of MOHAN. MOHAN is not a valid abbreviation. Thank you. ( X ) Acute Kidney Injury (X ) Present on admission ( ) Not present on admission ( ) Unable to determine ( ) Acute Kidney Insufficiency ( ) Present on admission ( ) Not present on admission ( ) Unable to determine ( ) Other (Specify): Principal Diagnosis: "that condition established after study, to be chiefly responsible for occasioning the admission of the patient to the hospital for care." Co-Existing Principal Diagnosis: "when two or more diagnoses equally meet the criteria for principal diagnosis as determined by the circumstances of admission, diagnostic work up, and/or therapy provided, and the Alphabetic Index, Tabular List, or another coding guideline does not provide sequencing direction, any one of the diagnoses may be sequenced first." "When the physician has documented what appears to be a current diagnosis in the body of the record, but has not included the diagnosis in the final diagnostic statement, the physician should be asked whether the diagnosis should be added." (Source [facility] 2 QTR90. p3-4) LAST
== END 2020-04-05 16:58 | disposition home health service (06) | DRG 699 ==
LOC: ED 16:00 → SUATTDRO 19:59 → 3W 19:59

== ENCOUNTER 2020-04-26 11:06 | Inpatient (IN) ==
[2020-04-26] MEDS ORDERED: SODIUM CHLORIDE 0.9% 500 ML IV SCH (11:30)
[2020-04-26 12:05] LABS: Basophils # (auto) 0.03 K/uL (0-0.2); Basophils % (auto) 0.2 %; Eosinophils # (auto) 0.06 K/uL (0-0.5); Eosinophils % (auto) 0.4 %; Hematocrit (blood only) 34.5 % (42-52); Hemoglobin 10.8 g/dL (14.0-18.0); Immature Granulocytes % (auto) 1.4 %; Lymphocytes # (auto) 1.06 K/uL (1.2-3.4); Lymphocytes % (auto) 7.3 %; Mean Corpuscular Hemoglobin 30.2 pg (25-34); Mean Corpuscular Hgb Conc 31.3 g/dL (32-36); Mean Corpuscular Volume 96.4 fL (80-100); Mean Platelet Volume 9.7 fL (7.4-10.4); Monocytes # (auto) 0.53 K/uL (0.11-0.59); Monocytes % (auto) 3.6 %; Neutrophils # (auto) 12.67 K/uL (1.4-6.5); Neutrophils % (auto) 87.1 %; Platelet Count 344 K/uL (130-400); RDW Coefficient of Variation 14.3 % (11.5-14.5); RDW Standard Deviation 50.9 fL (36.4-46.3); Red Blood Count 3.58 M/uL (4.7-6.1); White Blood Count 14.55 K/uL (4.8-10.8)
[2020-04-26 12:22] LABS: Albumin Level 3.1 gm/dl (3.4-5.0); BUN Creatinine Ratio 19.4 (10-20); Calcium 9.2 mg/dl (8.5-10.1); Creatinine Clr Calc Pharmacy 34.5 ml/min; Est GFR (African American) 47.4; Est GFR (Non-African American) 40.9; Potassium 4.7 mmol/L (3.5-5.1)
[2020-04-26 12:25] LABS: Albumin Globulin Ratio 0.7 (0.9-2); Bilirubin,Total 0.3 mg/dl (0.2-1); Globulin 4.6 gm/dl (2.5-4.0); Total Protein 7.7 gm/dl (6.4-8.2)
[2020-04-26 12:31] LABS: Appearance Urine Cloudy (Clear); Bacteria Urine Automated 2+ (Negative); Bilirubin Urine Negative (Negative); Blood Urine 2+ (Negative); Color Urine Yellow; Epithelial Cell Urine Auto 0-5 /lpf (0-5); Glucose Urine UA Negative (Negative); Ketones Urine Negative (Negative); Leukocyte Esterase Urine 2+ (Negative); Nitrite Urine Positive (Negative); Protein Urine 1+ (Negative); Specific Gravity Urine 1.013 (1.000-1.030); Urobilinogen Urine Negative (Negative); WBC Urine Automated >30 /hpf (0-5); pH Urine 5.5 (4.5-7.5)
--- NOTE | 2020-04-26 12:52 | Emergency Department Note ---
Impression & Plan Catheter-associated urinary tract infection, Fecal impaction, Pneumonia ED Provider Note NAME: BHARATH ANAND AGE: 85 SEX: M : 1935 ARRIVES VIA: Ambulance INFORMANT: Patient, ED PROVIDER(S): Carl Camp DO CHIEF COMPLAINT: Abdominal pain HPI: The patient is an 85-year-old male who presented to the emergency department for an evaluation of constipation. The patient is noted no bowel movement in the last 5 to 7 days. He is also noticed that his Venegas catheter is not draining appropriately. He denies having any fever but does complain of significant abdominal distention and pain. He denies having any nausea or vomiting. He denies having any chest pain or difficulty breathing. The patient has had similar episodes in the past with constipation but has been trying MiraLAX without relief. He was scheduled to see home health but they were unable to come evaluate him so he presented to the emergency department for evaluation. ROS: See above HPI for pertinent positives & negatives. A total of 10 systems reviewed and were otherwise negative. PAST MEDICAL HISTORY: See Below PAST SURGICAL HISTORY: See Below FAMILY HISTORY: See Below SOCIAL HISTORY: See Below HOME MEDICATIONS: See Below ALLERGIES: See Below VITALS: See Below PHYSICAL EXAMINATION: GENERAL: Patient is awake alert in no acute distress patient is resting comfortably and showing no signs of anxiety EYES: The conjunctivae are clear. The pupils are round and reactive. EARS, NOSE, MOUTH AND THROAT: The nose is without any evidence of any deformity. Mucous membranes are moist. Tongue is midline. NECK: The neck is nontender and supple. RESPIRATORY: Diminished breath sounds are noted throughout. There is scattered rhonchi. CARDIOVASCULAR: Regular rate and rhythm noted there no murmurs rubs or gallops normal S1 normal S2. GASTROINTESTINAL: The abdomen is moderately distended and diffusely tender. There is no guarding rigidity. MUSCULOSKELETAL/EXTREMITIES: There is no evidence of gross deformity full range of motion is noted in the hips and shoulders. SKIN: Skin is cool and dry. There is pedal edema bilaterally. NEUROLOGIC: Patient is awake alert and oriented x3. MEDICAL DECISION MAKING: The patient is an 85-year-old male who presented to the emergency department for an evaluation of multiple issues. The patient was having problems with his Venegas catheter. He felt that it was not draining. He is also been having abdominal distention constipation. His history and physical exam appear to be consistent with significant abdominal distention and tenderness. His Venegas catheter was changed in the emergency department. He had a very significant a mount of cloudy urine. The patient does have a history of Pseudomonas infection in his urine and he recently finished an antibiotic for this. I discussed the patient's laboratory and radiographic studies with him. He was found to have very significant fecal impaction and was treated with a molasses enema. He was also treated with IV antibiotics. Given his findings and the patient's home status I discussed his case with the on-call [facility] hospitalist group. They have agreed to evaluate patient in the emergency department for further management and disposition. Triage Nursing notes reviewed. Prior medical records reviewed Vital Signs: reviewed and remarkable for elevated blood pressure. Differential diagnosis: Etiologies such as appendicitis, diverticulitis, obstruction, inflammatory bowel disease, renal colic, PUD, biliary pathology, pancreatitis, mesenteric ischemia, aortic pathology, infections, genitourinary, UTI, perforated viscus, as well as others were entertained. ER treatment provided: See below Diagnostics interpreted by me: ECG: none Cardiac Monitoring: An order was placed for continuous cardiac monitoring. The monitor shows a rate of 88 with sinus rhythm. Laboratory studies: As stated above and show below. Imaging studies: See below Consultation(s): 1505: I discussed this case with Dr. Cruz. He is on-call for the [facility] hospitalist group. He will evaluate the patient in the emergency department for further management and disposition. ED COURSE: Procedures: none PDMP:reviewed and no issues Critical Care: None Past Med/Surg History Medical History Actinic keratosis (Acute) Anemia (Acute) Ankle edema, bilateral Pt admits to eating salty snacks lately. Advised to avoid salt. Asthma Benign prostatic hyperplasia with urinary obstruction (Acute) Eda disease (Acute) Cachexia Carotid artery plaque (Acute) <50% stenosis of internal carotids B/L by 2017 doppler Chronic diastolic heart failure 2+ ankle edema on exam at [facility] Chronic kidney disease, stage 3 Enlarged prostate Hematuria 2/2 renal calculi Hyperlipidemia Hypertension Indwelling Venegas catheter present Insomnia (Acute) Leukocytosis (Acute) Nephrolithiasis (Acute) On home oxygen therapy 2lpm via n/c PAD (peripheral artery disease) (Acute) Paroxysmal atrial fibrillation Dx 07/28/18 during admission for COPD exacerbation. Initially in RVR, but spontaneously converted; started on Metoprolol and Eliquis. Eliquis discontinued during admission 03/08/19 due to hematuria. Pulmonary emphysema (Acute) Pulmonary nodule (Acute) Sinus tachycardia (Acute) UTI (urinary tract infection) (Acute) Vitamin D deficiency (Acute) Weight loss (Acute) Surgical History History of appendectomy History of colonoscopy History of cystoscopy WITH STENT, during admission 03/2019 History of lithotripsy History of tonsillectomy Hx of transurethral resection of prostate Family History Mother Cancer thyroid Brother Myocardial infarction Prostate cancer Father No problems noted. Other Family history non-contributory No significant family history Denies family history of Stroke Social History Smoking Status: Former smoker Cigarettes Per Day: 20; Second Hand Exposure: No; Hx Alcohol Use: No Hx Substance Use: No Preferred Language: Andorran Communication Ability: Effective Rubber Ball Finisher Required: No Beliefs That Will Affect Care: None marital status: Current Living Situation: Spouse Current Living Situation Comment: currently has home health services current occupational status: retired Feels Safe at Home: Yes Seatbelt Use: always Sunscreen Use: Yes Allergies Allergies Allergy/AdvReac Type Severity Reaction Status Date / Time tamsulosin Allergy Unknown Unknown Verified 04/26/20 12:25 cilostazol AdvReac Intermediate dizziness, Verified 04/26/20 12:25 palpitations diltiazem AdvReac Intermediate dizziness, Verified 04/26/20 12:25 palpitations simvastatin AdvReac Mild dizziness Verified 04/26/20 12:25 Home Meds Home Medications Medication Instructions Recorded Confirmed albuterol sulfate 2 puff INHALATION QID PRN 09/13/19 04/26/20 cholecalciferol (vitamin D3) 2,000 units PO QAM 10/03/19 04/26/20 [Vitamin D3] cyanocobalamin (vitamin B-12) 1,000 mcg PO QAM 10/03/19 04/26/20 folic acid 800 mcg PO QAM 03/31/20 04/26/20 lorazepam 0.5 mg PO DAILY PRN 03/31/20 04/26/20 melatonin 10 mg PO HS 03/31/20 04/26/20 oxycodone 5 mg PO HS 03/31/20 04/26/20 metoprolol succinate 75 mg PO DAILY 04/26/20 04/26/20 mometasone-formoterol [Dulera] 1 puff INHALATION BID 04/26/20 04/26/20 Previous Rx's Medication Instructions Recorded pravastatin 20 mg tablet 20 mg PO QPM #90 tab 08/03/19 montelukast 10 mg tablet 10 mg PO QAM #90 tab 10/20/19 ipratropium 0.5 mg-albuterol 3 mg 3 ml INHALATION TID #180 ml 01/17/20 (2.5 mg base)/3 mL nebulization soln nitrofurantoin macrocrystal 50 mg 50 mg PO QAM #30 cap 01/24/20 capsule sodium chloride 7 % for 4 ml INH BID #240 ml 02/23/20 nebulization potassium chloride 10 mEq 10 meq PO Q2D #30 cap 03/09/20 capsule,extended release tiotropium bromide 2.5 2 puffs INHALATION DAILY #4 ml 03/21/20 mcg/actuation mist for inhalation apixaban 2.5 mg tablet 2.5 mg PO BID #180 tab 04/17/20 furosemide 40 mg tablet See Rx Instructions .ROUTE 04/20/20 .COMPLEX #30 tab Results & Data (ED) Vital Signs Vital Signs - 24 hr 04/26/20 11:05 04/26/20 11:45 Temperature 36.5 C Temperature Source Oral Pulse Rate 104 H 98 H Pulse Rhythm Regular Regular Pulse Strength Normal Respiratory Rate 20 20 Respiratory Effort / Characteristics Non-Labored Spontaneous Respiratory Depth Normal Respiratory Pattern Regular Blood Pressure 163/101 H Blood Pressure Mean 121 Blood Pressure Position Lying Pulse Oximetry 99 99 Oxygen Delivery Method Nasal Cannula Nasal Cannula Oxygen Flow Rate 3 3 Sepsis Recent Fever Within 48 Hours No Sepsis New/Unexplained Change in Mental Status No Sepsis Action Taken by Nursing No Action Required Home Medications Current Medication List: was personally reviewed by me Laboratory Data Attestation: I reviewed the patient's lab results. Result diagrams: 04/26/20 11:47 04/26/20 11:47 Lab Results 04/26/20 04/26/2020 Range/Units 11:47 11:47 12:07 WBC 14.55 H (4.8-10.8) K/uL RBC 3.58 L (4.7-6.1) M/uL Hgb 10.8 L (14.0-18.0) g/dL Hct 34.5 L (42-52) % MCV 96.4 (80-100) fL MCH 30.2 (25-34) pg MCHC 31.3 L (32-36) g/dL RDW Std Deviation 50.9 H (36.4-46.3) fL RDW Coeff of Ashley 14.3 (11.5-14.5) % Plt Count 344 (130-400) K/uL MPV 9.7 (7.4-10.4) fL Immature Gran % (Auto) 1.4 % Neut % (Auto) 87.1 % Lymph % (Auto) 7.3 % [place] % (Auto) 3.6 % Eos % (Auto) 0.4 % Baso % (Auto) 0.2 % Neut # (Auto) 12.67 H (1.4-6.5) K/uL Lymph # (Auto) 1.06 L (1.2-3.4) K/uL [place] # (Auto) 0.53 (0.11-0.59) K/uL Eos # (Auto) 0.06 (0-0.5) K/uL Baso # (Auto) 0.03 (0-0.2) K/uL Immature Gran # (Auto) 0.20 H (0.00-0.02) K/uL Sodium 140 (136-145) mmol/L Potassium 4.7 (3.5-5.1) mmol/L Chloride 105 (98-107) mmol/L Carbon Dioxide 32 (21-32) mmol/L Anion Gap 3.0 (3-11) BUN 30 H (7-18) mg/dl Creatinine 1.53 H (0.6-1.4) mg/dl Est Cr Clr Drug Dosing 34.5 ml/min Est GFR ( Amer) 47.4 Est GFR (Non-Af Amer) 40.9 BUN/Creatinine Ratio 19.4 (10-20) Glucose 116 H (70-99) mg/dl Calcium 9.2 (8.5-10.1) mg/dl Total Bilirubin 0.3 (0.2-1) mg/dl AST 18 (15-37) U/L ALT 23 (12-78) U/L Alkaline Phosphatase 81 (45-117) U/L Total Protein 7.7 (6.4-8.2) gm/dl Albumin 3.1 L (3.4-5.0) gm/dl Globulin 4.6 H (2.5-4.0) gm/dl Albumin/Globulin Ratio 0.7 L (0.9-2) Lipase 65 L (73-393) U/L Urine Color Yellow Urine Appearance Cloudy A (Clear) Urine pH 5.5 (4.5-7.5) Ur Specific [place] 1.013 (1.000-1.030) Urine Protein 1+ H (Negative) Urine Glucose (UA) Negative (Negative) Urine Ketones Negative (Negative) Urine Blood 2+ H (Negative) Urine Nitrite Positive A (Negative) Urine Bilirubin Negative (Negative) Urine Urobilinogen Negative (Negative) Ur Leukocyte Esterase 2+ H (Negative) Urine WBC (Auto) >30 H (0-5) /hpf Urine RBC (Auto) 10-30 H (0-4) /hpf U Hyaline Cast (Auto) 1-5 (0-5) /lpf U Epithel Cells (Auto) 0-5 (0-5) /lpf Urine Bacteria (Auto) 2+ H (Negative) Administered Medications Discontinued Medications Sodium Chloride (Nss) 500 mls @ 999 mls/hr IV .Q31M MARS Stop: 04/26/20 12:00 Last Infusion: 04/26/20 12:48 Dose: 0 mls/hr Documented by: [id number] Admin: 04/26/20 12:11 Dose: 999 mls/hr Documented by: [id number] Piperacillin Sod/Tazobactam Sod (Zosyn) 4.5 gm in 120 mls @ 240 mls/hr IV NOW ONE Stop: 04/26/20 14:34 Last Infusion: 04/26/20 15:48 Dose: 0 mls/hr Documented by: [id number] Admin: 04/26/20 15:17 Dose: 240 mls/hr Documented by: [id number] Imaging Data Radiologist's Impression: SINGLE VIEW CHEST CLINICAL HISTORY: Generalized abdominal pain. FINDINGS: An AP, portable, upright chest radiograph is compared to study dated 03/31/2020 and correlated with chest CT dated 01/13/2019. The examination is degraded by portable technique and patient rotation. The heart is top normal for projection noting atherosclerotic calcification of the thoracic aorta. Enlargement of the central pulmonary arteries suggests pulmonary artery hypertension. Advanced emphysema and chronic interstitial thickening is similar to previous. Patchy airspace opacities are seen at the left lung base. Apical scarring is observed. No large pleural effusion or pneumothorax is seen. The skeletal structures are osteopenic. The bony thorax is grossly intact. IMPRESSION: 1. Advanced emphysema. 2. Patchy airspace opacities are present at the left lung base. Correlate clinically for evidence of pneumonia/aspiration pneumonitis. ACT 112: Negative or not required by law. Electronically signed by: Vidal Love M.D. 04/26/2020 1:47 PM Dictated: 04/26/20 1344 Transcribed: 04/26/[address] OF THE ABDOMEN AND PELVIS WITHOUT CONTRAST CLINICAL HISTORY: Lower abdominal pain. COMPARISON STUDY: CT of the abdomen and pelvis July 04, 2019. TECHNIQUE: Axial images of the abdomen and pelvis were obtained without IV contrast. Images were reviewed in the axial, sagittal, and coronal planes. Automated exposure control was utilized for the study. A dose lowering technique was utilized adhering to the principles of ALARA. FINDINGS: Imaged portions the lower chest demonstrate a trace left pleural effusion with associated atelectasis. There is emphysema within the lower lungs. No pneumatosis, free air or portal venous gas is present. Several punctate right renal calculi are present. There are no ureteral calculi. There is no hydronephrosis or hydroureter. There is no perinephric infiltration. Venegas balloon is present within the bladder which is collapsed. A punctate calculus within lower pole of the left kidney is noted. There are gallstones within the gallbladder. The gallbladder is not significantly distended. There are calcified granulomas within liver and spleen. The adrenal glands and pancreas are unremarkable. There is no evidence for a bowel obstruction. There is extensive aortoiliac atherosclerotic plaque. Colonic diverticulosis is noted without evidence for acute diverticulitis. A moderate amount of stool within the colon and moderate to large amount stool within the rectum is noted. Old L3 compression fracture is noted. There is no lymphadenopathy. There are no suspicious osseous lesions. IMPRESSION: 1. Punctate bilateral renal calculi. No ureteral calculi or hydronephrosis. 2. Cholelithiasis. 3. No bowel obstruction. Moderate to large amount stool within the colon and rectum. ACT 112: Negative or not required by law. Electronically signed by: Des Mead M.D. 04/26/2020 1:04 PM Dictated: 04/26/20 1255 Transcribed: 04/26/20 1255 Blood Pressure Blood Pressure Findings: Normal blood pressure Blood Pressure Disposition: further management by hospitalist Discharge Plan Visit Data Chief Complaint: Abdominal Pain Stated Complaint: Abd pain/SOB ED Provider: Carl Camp Discharge Problem: Catheter-associated urinary tract infection, Fecal impaction, Pneumonia Patient Disposition: Being Evaluated by Hospitalist Condition: Good Forms Stand Alone Forms: [employer] Prescriptions Prescriptions: No Action pravastatin 20 mg tablet 20 mg PO QPM Qty: 90 RF: 3 montelukast 10 mg tablet 10 mg PO QAM Qty: 90 RF: 1 ipratropium-albuterol 0.5 mg-3 mg(2.5 mg base)/3 mL solution for nebulization 3 ml Inhalation TID Qty: 180 RF: 5 nitrofurantoin macrocrystal 50 mg capsule 50 mg PO QAM Qty: 30 RF: 5 sodium chloride 7 % solution for nebulization 4 ml INH BID Qty: 240 RF: 2 potassium chloride 10 mEq capsule, extended release 10 meq PO Q2D Qty: 30 RF: 3 tiotropium bromide [Spiriva Respimat] 2.5 mcg/actuation mist 2 puffs inhalation DAILY Qty: 4 RF: 1 Eliquis 2.5 mg tablet 2.5 mg PO BID Qty: 180 RF: 1 furosemide 40 mg tablet See Rx Instructions .ROUTE .COMPLEX Qty: 30 RF: 5 folic acid 800 mcg Tablet 800 mcg PO QAM RF: 0 lorazepam 0.5 mg tablet 0.5 mg PO DAILY PRN (Reason: Anxiety) RF: 0 oxycodone 5 mg tablet 5 mg PO HS RF: 0 melatonin 10 mg Tablet 10 mg PO HS RF: 0 Dulera 200-5 mcg/actuation HFA aerosol inhaler 1 puff INHALATION BID RF: 0 metoprolol succinate 50 mg tablet extended release 24 hr 75 mg PO DAILY RF: 0 albuterol sulfate 90 mcg/actuation HFA aerosol inhaler 2 puff inhalation QID PRN (Reason: Shortness Of Breath Or Wheezing) RF: 0 cholecalciferol (vitamin D3) [Vitamin D3] 2,000 unit capsule 2,000 units PO QAM RF: 0 cyanocobalamin (vitamin B-12) 1,000 mcg capsule 1,000 mcg PO QAM RF: 0 Referrals Referrals: Guerrero Morse MD [Primary Care Provider] -
--- NOTE | 2020-04-26 13:05 | CT Scan Report ---
CT OF THE ABDOMEN AND PELVIS WITHOUT CONTRAST CLINICAL HISTORY: Lower abdominal pain. COMPARISON STUDY: CT of the abdomen and pelvis July 04, 2019. TECHNIQUE: Axial images of the abdomen and pelvis were obtained without IV contrast. Images were revi ewed in the axial, sagittal, and coronal planes. Automated exposure control was utilized for the lobo dy. A dose lowering technique was utilized adhering to the principles of ALARA. FINDINGS: Imaged portions the lower chest demonstrate a trace left pleural effusion with associated a telectasis. There is emphysema within the lower lungs. No pneumatosis, free air or portal venous gas is present. Several punctate right renal calculi are present. There are no ureteral calculi. There is no hydronephrosis or hydroureter. There is no perinephric infiltration. Venegas balloon is present wit hin the bladder which is collapsed. A punctate calculus within lower pole of the left kidney is noted . There are gallstones within the gallbladder. The gallbladder is not significantly distended. There are calcified granulomas within liver and spleen. The adrenal glands and pancreas are unremarkable. T here is no evidence for a bowel obstruction. There is extensive aortoiliac atherosclerotic plaque. Co lonic diverticulosis is noted without evidence for acute diverticulitis. A moderate amount of stool w ithin the colon and moderate to large amount stool within the rectum is noted. Old L3 compression fra cture is noted. There is no lymphadenopathy. There are no suspicious osseous lesions. IMPRESSION: 1. Punctate bilateral renal calculi. No ureteral calculi or hydronephrosis. 2. Cholelithiasis. 3. No bowel obstruction. Moderate to large amount stool within the colon and rectum. ACT 112: Negative or not required by law. Electronically signed by: Des Mead M.D. 04/26/2020 1:04 PM
--- NOTE | 2020-04-26 13:48 | XRay Report ---
SINGLE VIEW CHEST CLINICAL HISTORY: Generalized abdominal pain. FINDINGS: An AP, portable, upright chest radiograph is compared to study dated 03/31/2020 and correlat ed with chest CT dated 01/13/2019. The examination is degraded by portable technique and patient rotat ion. The heart is top normal for projection noting atherosclerotic calcification of the thoracic aort a. Enlargement of the central pulmonary arteries suggests pulmonary artery hypertension. Advanced emp hysema and chronic interstitial thickening is similar to previous. Patchy airspace opacities are seen at the left lung base. Apical scarring is observed. No large pleural effusion or pneumothorax is see n. The skeletal structures are osteopenic. The bony thorax is grossly intact. IMPRESSION: 1. Advanced emphysema. 2. Patchy airspace opacities are present at the left lung base. Correlate clinically for evidence of pneumonia/aspiration pneumonitis. ACT 112: Negative or not required by law. Electronically signed by: Vidal Love M.D. 04/26/2020 1:47 PM
[2020-04-26] MEDS ORDERED: PIPERACILL/TAZOBAC CONSULT ACTIVE PRN ×2 (14:05→19:45)
[2020-04-26] MEDS ORDERED: PIPERACILLIN/TAZOBACTAM 4.5 GM/120 ML BAG IV ONE (14:05)
[2020-04-26] MEDS ORDERED: ACETAMINOPHEN 325 MG TAB PO STA (17:54)
[2020-04-26] MEDS ORDERED: LORazepam 0.5 MG TAB PO PRN (19:45)
[2020-04-26] MEDS ORDERED: ONDANSETRON INJ 2 MG/ML 2 ML VIAL IV PRN (19:45)
[2020-04-26] MEDS ORDERED: LACTULOSE SYRUP 20 GM/30 ML UDC PO ONE (20:00)
[2020-04-26] MEDS: ALBUT/IPRATROP 3MG/0.5MG NEB 3 ML VIAL INH SCH (20:20)
[2020-04-26] MEDS: SODIUM CHLOR 7% 4 ML NEB INH SCH (20:20)
[2020-04-26] MEDS: PIPERACILLIN/TAZOBACTAM 3.375 GM in DEXTROSE 5% 100 ML IV SCH (21:13)
[2020-04-26] MEDS: OXYCODONE HCL IR 5 MG TAB (IMMEDIATE RELEASE) PO SCH (21:14)
[2020-04-26] MEDS: APIXABAN 2.5 MG TAB PO SCH (21:14)
[2020-04-26] MEDS: MELATONIN 3 MG TAB PO SCH (21:15)
[2020-04-26] MEDS: PRAVASTATIN SOD 20 MG TAB PO SCH (21:15)
--- NOTE | 2020-04-26 22:29 | History & Physical Report ---
Date of Service April 26, 2020 Assessment & Plan (1) Catheter-associated urinary tract infection: tong exchanged in the ED UA with > 30 WBC and bacteria, started on Zosyn, will continue last admission his urine culture grew Pseudomonas, also grew Shanna will add Diflucan IV follow up final cultures BP stable, WBC slightly high, renal function at baseline no evidence of sepsis may require another PICC line and IV antibiotics since prior culture showed quinolone resistance (2) Fecal impaction: molasses enema in the ED, softened stool successful disimpaction in the ED, still with soft stool in rectal vault fecal retention on CT, no obstruction give Lactulose 20gm this evening Miralax daily until he evacuate bowels (3) COPD (chronic obstructive pulmonary disease): continue inhalers on oxygen chronically no wheezing, no signs of exacerbation (4) Weakness: ongoing issue refused rehab in the past consult PT/OT tomorrow CM consultation (5) Anticoagulant long-term use: continue NOAC (6) Atrial fibrillation: rates stable anticoagulated Admission and Anticipated Discharge Date Admission Date: April 26, 2020 History of Present Illness Chief Complaint: I can't move my bowels Primary Care Provider: Mateo Morse MD 85 yo male with history of indwelling tong, with recent admission for UTI and treatment with IV antibiotics up until two weeks ago, comes to the ED c/o not moving his bowels for about 5-7 days. He reports that he was using a stool softener and his stools had been soft and moving regularly. He then stopped the stool softener and only used Miralax. Has not been able to move bowels for 7 days. Says he feels like he has to move them but he cannot. Also, his tong was not draining much urine, this changed over the past 24 hours. He denies any fever or chills. He has been eating and drinking well. He continues to be very weak at home, not very mobile. He lives with his family. He was offered rehab at [facility] for his most recent admission but he refused. He says that rehab is pointless, he will not get any stronger. He was last discharged on 04/05/20 on Ceftazedime for Pseudomonas infection. Also noted to have Shanna infection, repeat culture on 04/07 still with Shanna. In the ED vitals were stable, he is on oxygen but wears this chronically. Tong was exchanged and he started making a lot of urine, over a liter already. Received milk of molasses enema but no real BM. CT abdomen/pelvis with fecal retention, some kidney stones but all in the kidney, no acute changes, no bowel obstruction. Labs with WBC of 14k, Hb 10.8, plts 344k, Cr 1.5, similar to levels on prior discharge, actually a little better. UA with > 30WBC, 2+ bacteria. Received Zosyn in the ED. Allergies Allergy/AdvReac Type Severity Reaction Status Date / Time tamsulosin Allergy Unknown Unknown Verified 04/26/20 12:25 cilostazol AdvReac Intermediate dizziness, Verified 04/26/20 12:25 palpitations diltiazem AdvReac Intermediate dizziness, Verified 04/26/20 12:25 palpitations simvastatin AdvReac Mild dizziness Verified 04/26/20 12:25 Home Medications Home Medications Medication Instructions Recorded Confirmed Type pravastatin 20 mg tablet 20 mg PO QPM #90 tab 08/03/19 04/26/20 Rx albuterol sulfate 2 puff INHALATION QID PRN 09/13/19 04/26/20 History cholecalciferol (vitamin D3) 2,000 units PO QAM 10/03/19 04/26/20 History [Vitamin D3] cyanocobalamin (vitamin B-12) 1,000 mcg PO QAM 10/03/19 04/26/20 History montelukast 10 mg tablet 10 mg PO QAM #90 tab 10/20/19 04/26/20 Rx ipratropium 0.5 mg-albuterol 3 mg 3 ml INHALATION TID #180 ml 01/17/20 04/26/20 Rx (2.5 mg base)/3 mL nebulization soln nitrofurantoin macrocrystal 50 mg 50 mg PO QAM #30 cap 01/24/20 04/26/20 Rx capsule sodium chloride 7 % for 4 ml INH BID #240 ml 02/23/20 04/26/20 Rx nebulization potassium chloride 10 mEq 10 meq PO Q2D #30 cap 03/09/20 04/26/20 Rx capsule,extended release tiotropium bromide 2.5 2 puffs INHALATION DAILY #4 ml 03/21/20 04/26/20 Rx mcg/actuation mist for inhalation folic acid 800 mcg PO QAM 03/31/20 04/26/20 History lorazepam 0.5 mg PO DAILY PRN 03/31/20 04/26/20 History melatonin 10 mg PO HS 03/31/20 04/26/20 History oxycodone 5 mg PO HS 03/31/20 04/26/20 History apixaban 2.5 mg tablet 2.5 mg PO BID #180 tab 04/17/20 04/26/20 Rx furosemide 40 mg tablet See Rx Instructions .ROUTE 04/20/20 04/26/20 Rx .COMPLEX #30 tab metoprolol succinate 75 mg PO DAILY 04/26/20 04/26/20 History mometasone-formoterol [Dulera] 1 puff INHALATION BID 04/26/20 04/26/20 History Past Med/Surg History Medical History Actinic keratosis (Acute) Anemia (Acute) Ankle edema, bilateral Pt admits to eating salty snacks lately. Advised to avoid salt. Asthma Benign prostatic hyperplasia with urinary obstruction (Acute) Eda disease (Acute) Cachexia Carotid artery plaque (Acute) <50% stenosis of internal carotids B/L by 2017 doppler Chronic diastolic heart failure 2+ ankle edema on exam at [facility] Chronic kidney disease, stage 3 Enlarged prostate Hematuria 2/2 renal calculi Hyperlipidemia Hypertension Indwelling Tong catheter present Insomnia (Acute) Leukocytosis (Acute) Nephrolithiasis (Acute) On home oxygen therapy 2lpm via n/c PAD (peripheral artery disease) (Acute) Paroxysmal atrial fibrillation Dx 07/28/18 during admission for COPD exacerbation. Initially in RVR, but sp ontaneously converted; started on Metoprolol and Eliquis. Eliquis discontinued during admission 03/08/19 due to hematuria. Pulmonary emphysema (Acute) Pulmonary nodule (Acute) Sinus tachycardia (Acute) UTI (urinary tract infection) (Acute) Vitamin D deficiency (Acute) Weight loss (Acute) Surgical History History of appendectomy History of colonoscopy History of cystoscopy WITH STENT, during admission 03/2019 History of lithotripsy History of tonsillectomy Hx of transurethral resection of prostate Family History Mother Cancer thyroid Brother Myocardial infarction Prostate cancer Father No problems noted. Other Family history non-contributory No significant family history Denies family history of Stroke Social History Smoking Status: Former smoker Cigarettes Per Day: 20; Second Hand Exposure: No; Do You Dip or Chew Tobacco: No; Tobacco Cessation Education Requested by Patient: No Hx Alcohol Use: No Hx Substance Use: No Preferred Language: Khmer Communication Ability: Effective Cleaning Laborer Required: No Beliefs That Will Affect Care: None marital status: Current Living Situation: Spouse Current Living Situation Comment: currently has home health services current occupational status: retired Other Information That Helps Us Care for You: No Feels Safe at Home: Yes Safety Concerns: Feels Safe At This Time Seatbelt Use: always Sunscreen Use: Yes Review of Systems Review of Systems: All systems reviewed & are unremarkable except as noted in Subjective Constitutional: + weakness; no fever, no chills, no sweats and no fatigue Respiratory: no cough and no dyspnea Cardiovascular: no chest pain, no palpitations, no syncope and no edema Gastrointestinal: + constipation; no abdominal pain, no nausea, no vomiting and no diarrhea/loose stools Genitourinary: + problem reported (tong not draining well, 24 hours) Musculoskeletal: no back pain, no joint pain and no myalgia Integumentary: no rash Physical Exam Constitutional: WD/WN, vitals as above Eyes: PERRL, conjunctivae normal, anicteric sclerae ENMT: external ear and nose normal, oropharynx normal Neck: trachea midline, no thyromegaly Respiratory: normal respiratory effort, lungs clear to auscultation Cardiovascular: RRR, no murmur, no edema Gastrointestinal (Abdomen): Inspection/Auscultation: abdomen normal to inspection and normal bowel sounds; abdomen not distended Percussion/Palpation: abdomen soft; abdomen nontender and no guarding Rectal Exam: normal visual inspection of rectum and + fecal impaction (stool brown, soft); no hemorrhoids Musculoskeletal: Head/Neck/Chest: normocephalic, head atraumatic and neck supple Extremities: extremities normal to inspection and + abnormal strength (generalized weakness, cannot transfer or stand independently) Skin: no rashes, warm and dry Neurologic: patellar DTR's 2+ bilat, sensation intact and PERRL, EOMI, accommodation nl, no face palsy, no dysarthria Psychiatric: A+Ox3, euthymic affect Lymphatic: no cervical or axillary lymphadenopathy Results & Data Results & Data ([facility]) Vital Signs (Past 12 Hours) Vital Signs Temp Pulse Pulse Resp BP BP Pulse Ox 04/26/20 20:24 93 H 16 97 04/26/20 19:45 36.5 C 92 H 18 147/91 H 100 04/26/20 19:00 86 21 148/90 H 100 04/26/20 18:30 94 H 19 153/104 H 94 04/26/20 18:00 98 H 20 134/75 94 04/26/20 17:30 90 20 135/88 95 04/26/20 17:00 92 H 19 151/94 H 91 04/26/20 16:30 94 H 27 H 153/101 H 96 04/26/20 16:00 96 H 16 141/94 H 96 04/26/20 15:30 94 H 19 140/93 100 04/26/20 15:00 98 H 23 164/97 H 100 04/26/20 14:30 99 H 23 154/107 H 100 04/26/20 14:00 97 H 19 133/95 100 04/26/20 13:30 95 H 18 159/96 H 100 04/26/20 13:00 93 H 18 157/89 H 98 04/26/20 12:31 96 H 20 147/84 H 98 04/26/20 12:00 106 H 23 159/91 H 98 04/26/20 11:45 98 H 20 99 04/26/20 11:30 102 H 22 161/102 H 98 04/26/20 11:13 109 H 22 163/101 H 91 04/26/20 11:05 36.5 C 104 H 20 163/101 H 99 Laboratory Results Laboratory Results - last 24 hr 04/26/20 04/26/20 04/26/20 11:47 11:47 12:07 WBC 14.55 H RBC 3.58 L Hgb 10.8 L Hct 34.5 L MCV 96.4 MCH 30.2 MCHC 31.3 L RDW Std Deviation 50.9 H RDW Coeff of Ashley 14.3 Plt Count 344 MPV 9.7 Immature Gran % (Auto) 1.4 Neut % (Auto) 87.1 Lymph % (Auto) 7.3 [place] % (Auto) 3.6 Eos % (Auto) 0.4 Baso % (Auto) 0.2 Neut # (Auto) 12.67 H Lymph # (Auto) 1.06 L [place] # (Auto) 0.53 Eos # (Auto) 0.06 Baso # (Auto) 0.03 Immature Gran # (Auto) 0.20 H Sodium 140 Potassium 4.7 Chloride 105 Carbon Dioxide 32 Anion Gap 3.0 BUN 30 H Creatinine 1.53 H Est Cr Clr Drug Dosing 34.5 Est GFR ( Amer) 47.4 Est GFR (Non-Af Amer) 40.9 BUN/Creatinine Ratio 19.4 Glucose 116 H Calcium 9.2 Total Bilirubin 0.3 AST 18 ALT 23 Alkaline Phosphatase 81 Total Protein 7.7 Albumin 3.1 L Globulin 4.6 H Albumin/Globulin Ratio 0.7 L Lipase 65 L Urine Color Yellow Urine Appearance Cloudy A Urine pH 5.5 Ur Specific [place] 1.013 Urine Protein 1+ H Urine Glucose (UA) Negative Urine Ketones Negative Urine Blood 2+ H Urine Nitrite Positive A Urine Bilirubin Negative Urine Urobilinogen Negative Ur Leukocyte Esterase 2+ H Urine WBC (Auto) >30 H Urine RBC (Auto) 10-30 H U Hyaline Cast (Auto) 1-5 U Epithel Cells (Auto) 0-5 Urine Bacteria (Auto) 2+ H Medications Administered Current Inpatient Medications Acetaminophen (Tylenol) 650 mg PO Q4H PRN PRN Reason: pain/fever Stop: 05/26/20 19:44 Albuterol (Duoneb) 3 ml INH TIDR [facility] Stop: 05/26/20 20:59 Last Admin: 04/26/20 20:20 Dose: 3 ml Documented by: Apixaban (Eliquis) 2.5 mg PO BID [facility] Stop: 05/26/20 20:59 Last Admin: 04/26/20 21:14 Dose: 2.5 mg Documented by: Cyanocobalamin (Vitamin B-12) 1,000 mcg PO QAM [facility] Stop: 05/27/20 08:59 Fluticasone/Vilanterol (Breo Ellipta 100/25 Mcg Inh) 1 puffs INH DAILY [facility] Stop: 05/27/20 08:59 Folic Acid (Folvite) 800 mcg PO QAM [facility] Stop: 05/27/20 08:59 Piperacillin Sod/Tazobactam (Sod 3.375 gm/ Dextrose) 115 mls @ 28.75 mls/hr IV Q8H [facility]; Protocol Stop: 05/06/20 19:59 Last Admin: 04/26/20 21:13 Dose: 28.8 mls/hr Documented by: Lorazepam (Ativan) 0.5 mg PO DAILY PRN PRN Reason: Anxiety Stop: 05/26/20 19:44 Melatonin (Melatonin) 9 mg PO HS [facility] Stop: 05/26/20 20:59 Last Admin: 04/26/20 21:15 Dose: 9 mg Documented by: Metoprolol Succinate (Toprol Xl) 75 mg PO DAILY [facility] Stop: 05/27/20 08:59 Miscellaneous Information (Consult) 1 ea N/A UD PRN PRN Reason: Consult Stop: 05/26/20 19:44 [facility]elukast [facility]) [facility] Stop: 05/27/20 08:59 Ondansetron HCl (Zofran) 4 mg IV Q6H PRN PRN Reason: Nausea Stop: 05/26/20 19:44 Oxycodone HCl (Roxicodone Immediate Rel) 5 mg PO [facility] Stop: 05/10/20 20:59 Last Admin: 04/26/20 21:14 Dose: 5 mg Documented by: Potassium Chloride (Klor-Con M10) 10 meq PO Q2D@0900 [facility] Stop: 05/27/20 08:59 Pravastatin Sodium (Pravachol) 20 mg PO QPM [facility] Stop: 05/26/20 20:59 Last Admin: 04/26/20 21:15 Dose: 20 mg Documented by: Sodium Chloride (Sodium Chlor 7% Neb Solution) 4 ml INH BIDR [facility] Stop: 05/26/20 20:59 Last Admin: 04/26/20 20:20 Dose: 4 ml Documented by: Umeclidinium [place] (Incruse Ellipta) 1 puffs INH DAILY [facility] Stop: 05/27/20 08:59 Vitamin D (Vitamin D3) 2,000 units PO QAM [facility] Stop: 05/27/20 08:59 Code Status & VTE Plan Code Status Full code, patient says to try VTE Prophylaxis Plan VTE Prophylaxis will be ordered: Yes PG Care Time/CCT Total # of Minutes Spent Total Time Spent with Patient: Total time spent is greater than 50% in coordination of care (as documented) at patient's floor/unit and/or counseling patient: Coding Level of Care Code 59128 Initial Inpt Care Lvl 3 Diagnoses Catheter-associated urinary tract infection T83.511A; N39.0 Encounter type: initial encounter Indwelling urinary catheter type: unspecified Fecal impaction K56.41 COPD (chronic obstructive pulmonary disease) J44.9 Weakness R53.1 Anticoagulant long-term use Z79.01 Atrial fibrillation I48.2 Atrial fibrillation type: chronic (1) Catheter-associated urinary tract infection Encounter type: initial encounter Indwelling urinary catheter type: unspecified Qualified Code(s): T83.511A - Infection and inflammatory reaction due to indwelling urethral catheter, initial encounter; N39.0 - Urinary tract infection, site not specified (2) Atrial fibrillation Atrial fibrillation type: chronic Qualified Code(s): I48.2 - Chronic atrial fibrillation
[2020-04-27] MEDS: PIPERACILLIN/TAZOBACTAM 3.375 GM in DEXTROSE 5% 100 ML IV SCH ×3 (04:17→20:16)
[2020-04-27] MEDS: SODIUM CHLOR 7% 4 ML NEB INH SCH ×2 (07:24→19:40)
[2020-04-27] MEDS: ALBUT/IPRATROP 3MG/0.5MG NEB 3 ML VIAL INH SCH ×3 (07:24→19:39)
[2020-04-27 07:36] LABS: Basophils # (auto) 0.04 K/uL (0-0.2); Basophils % (auto) 0.3 %; Eosinophils # (auto) 0.26 K/uL (0-0.5); Eosinophils % (auto) 1.9 %; Hematocrit (blood only) 31.3 % (42-52); Hemoglobin 9.9 g/dL (14.0-18.0); Immature Granulocytes # (auto) 0.13 K/uL (0.00-0.02); Immature Granulocytes % (auto) 0.9 %; Lymphocytes # (auto) 1.79 K/uL (1.2-3.4); Mean Corpuscular Hemoglobin 30.3 pg (25-34); Mean Corpuscular Hgb Conc 31.6 g/dL (32-36); Mean Corpuscular Volume 95.7 fL (80-100); Mean Platelet Volume 9.8 fL (7.4-10.4); Monocytes # (auto) 0.91 K/uL (0.11-0.59); Monocytes % (auto) 6.6 %; Neutrophils # (auto) 10.69 K/uL (1.4-6.5); Neutrophils % (auto) 77.3 %; Platelet Count 290 K/uL (130-400); RDW Coefficient of Variation 14.5 % (11.5-14.5); RDW Standard Deviation 50.9 fL (36.4-46.3); Red Blood Count 3.27 M/uL (4.7-6.1); White Blood Count 13.82 K/uL (4.8-10.8)
[2020-04-27] MEDS: FLUCONAZOLE 100 MG/50 ML BAG IV SCH (07:39)
[2020-04-27] MEDS: MONTELUKAST SODIUM 10 MG TABLET PO SCH (07:40)
[2020-04-27] MEDS: APIXABAN 2.5 MG TAB PO SCH ×2 (07:40→20:21)
[2020-04-27] MEDS: POTASSIUM CHLORIDE 10 MEQ TABCR PO SCH (07:40)
[2020-04-27] MEDS: CYANOCOBALAMIN 500 MCG TABLET (VITAMIN B-12) PO SCH (07:40)
[2020-04-27] MEDS: METOPROLOL SUCC 25MG EXT REL TAB PO SCH (07:40)
[2020-04-27] MEDS: CHOLECALCIFEROL 1,000 UNITS 25 MCG TAB PO SCH (07:40)
[2020-04-27] MEDS: FOLIC ACID 400 MCG TAB PO SCH (07:40)
[2020-04-27] MEDS: UMECLIDINIUM BROMIDE 62.5MCG/BLISTER 7 PUFFS/INHALER INH SCH (07:41)
[2020-04-27] MEDS: FLUTICASONE/VILANTEROL 100/25MCG 14 PUFFS/INHALER INH SCH (07:41)
[2020-04-27] MEDS: POLYETHYLENE (MIRALAX) 17 GM PACK PO SCH (07:41)
[2020-04-27] MEDS: ACETAMINOPHEN 325 MG TAB PO PRN ×2 (07:52→18:59)
[2020-04-27 08:07] LABS: BUN Creatinine Ratio 19.4 (10-20); Est GFR (African American) 48.1; Est GFR (Non-African American) 41.5
--- NOTE | 2020-04-27 10:36 | Hospitalist Progress Note ---
Date of Service April 27, 2020 Assessment & Plan (1) Catheter-associated urinary tract infection: tong exchanged in the ED UA with > 30 WBC and bacteria, started on Zosyn, will continue urine culture already growing Pseudomonas, awaiting sensitivity continue Diflucan IV for outpatient Shanna culture follow up final cultures BP stable, WBC improved to 13k, Cr stable no evidence of sepsis plan for US guided IV, home IV antibiotics but will treat for 14 days since 10 day course failed (2) Fecal impaction: molasses enema in the ED, softened stool successful disimpaction in the ED, still with soft stool in rectal vault fecal retention on CT, no obstruction Lactulose 20gm last night produced small BM will change Miralax to BID and try to completely evacuate bowels (3) COPD (chronic obstructive pulmonary disease): continue inhalers on oxygen chronically no wheezing, no signs of exacerbation (4) Weakness: ongoing issue refused rehab in the past consult PT/OT tomorrow CM consultation (5) Anticoagulant long-term use: continue NOAC (6) Atrial fibrillation: rates stable anticoagulated Admission and Anticipated Discharge Date Admission Date: April 26, 2020 Subjective patient feeling well today, had a small BM last night, none yet today eating well he feels very weak and tired, he says this is normal for him he refuses to consider rehab, especially at [facility] his urine culture is growing Pseudomonas d/w CM, will plan for US guided IV and prolonged course of antibiotics since last course did not eradicate infection WBC is 13k, Cr is stable at 1.51, electrolytes stable Review of Systems Review of Systems: All systems reviewed & are unremarkable except as noted in Subjective Constitutional: + fatigue and + weakness; no fever Respiratory: no cough and no dyspnea Cardiovascular: no chest pain and no edema Genitourinary: + problem reported (tong) Musculoskeletal: + muscle weakness Physical Exam Constitutional: WD/WN, vitals as above Eyes: PERRL, conjunctivae normal, anicteric sclerae ENMT: external ear and nose normal, oropharynx normal Neck: trachea midline, no thyromegaly Respiratory: normal respiratory effort, lungs clear to auscultation Cardiovascular: RRR, no murmur, no edema Gastrointestinal (Abdomen): Inspection/Auscultation: abdomen normal to inspection and normal bowel sounds; abdomen not distended Percussion/Palpation: abdomen soft; abdomen nontender and no guarding Musculoskeletal: Head/Neck/Chest: normocephalic, head atraumatic and neck supple Extremities: extremities normal to inspection and + abnormal strength (generalized weakness, cannot transfer or stand independently) Skin: no rashes, warm and dry Neurologic: patellar DTR's 2+ bilat, sensation intact and PERRL, EOMI, accommodation nl, no face palsy, no dysarthria Psychiatric: A+Ox3, euthymic affect Lymphatic: no cervical or axillary lymphadenopathy Results & Data Results & Data ([facility]) Vital Signs (Past 12 Hours) Vital Signs Temp Pulse Resp BP Pulse Ox 04/27/20 08:37 36.6 C 88 17 124/81 100 04/27/20 07:26 85 20 93 04/26/20 22:48 36.4 C L 101 H 18 115/75 94 Laboratory Results Laboratory Results - last 24 hr 04/26/20 04/26/20 04/26/20 11:47 11:47 12:07 WBC 14.55 H RBC 3.58 L Hgb 10.8 L Hct 34.5 L MCV 96.4 MCH 30.2 MCHC 31.3 L RDW Std Deviation 50.9 H RDW Coeff of [place] 14.3 Plt Count 344 MPV 9.7 Immature Gran % (Auto) 1.4 Neut % (Auto) 87.1 Lymph % (Auto) 7.3 [place] % (Auto) 3.6 Eos % (Auto) 0.4 Baso % (Auto) 0.2 Neut # (Auto) 12.67 H Lymph # (Auto) 1.06 L [place] # (Auto) 0.53 Eos # (Auto) 0.06 Baso # (Auto) 0.03 Immature Gran # (Auto) 0.20 H Sodium 140 Potassium 4.7 Chloride 105 Carbon Dioxide 32 Anion Gap 3.0 BUN 30 H Creatinine 1.53 H Est Cr Clr Drug Dosing 34.5 Est GFR ( Amer) 47.4 Est GFR (Non-Af Amer) 40.9 BUN/Creatinine Ratio 19.4 Glucose 116 H Calcium 9.2 Total Bilirubin 0.3 AST 18 ALT 23 Alkaline Phosphatase 81 Total Protein 7.7 Albumin 3.1 L Globulin 4.6 H Albumin/Globulin Ratio 0.7 L Lipase 65 L Urine Color Yellow Urine Appearance Cloudy A Urine pH 5.5 Ur Specific [place] 1.013 Urine Protein 1+ H Urine Glucose (UA) Negative Urine Ketones Negative Urine Blood 2+ H Urine Nitrite Positive A Urine Bilirubin Negative Urine Urobilinogen Negative Ur Leukocyte Esterase 2+ H Urine WBC (Auto) >30 H Urine RBC (Auto) 10-30 H U Hyaline Cast (Auto) 1-5 U Epithel Cells (Auto) 0-5 Urine Bacteria (Auto) 2+ H 04/27/20 04/27/20 07:17 07:17 WBC 13.82 H RBC 3.27 L Hgb 9.9 L Hct 31.3 L MCV 95.7 MCH 30.3 MCHC 31.6 L RDW Std Deviation 50.9 H RDW Coeff of [place] 14.5 Plt Count 290 MPV 9.8 Immature Gran % (Auto) 0.9 Neut % (Auto) 77.3 Lymph % (Auto) 13.0 [place] % (Auto) 6.6 Eos % (Auto) 1.9 Baso % (Auto) 0.3 Neut # (Auto) 10.69 H Lymph # (Auto) 1.79 [place] # (Auto) 0.91 H Eos # (Auto) 0.26 Baso # (Auto) 0.04 Immature Gran # (Auto) 0.13 H Sodium 140 Potassium 4.0 Chloride 106 Carbon Dioxide 31 Anion Gap 4.0 BUN 29 H Creatinine 1.51 H Est Cr Clr Drug Dosing 35.0 Est GFR ( Amer) 48.1 Est GFR (Non-Af Amer) 41.5 BUN/Creatinine Ratio 19.4 Glucose 89 Calcium 9.0 Total Bilirubin AST ALT Alkaline Phosphatase Total Protein Albumin Globulin Albumin/Globulin Ratio Lipase Urine Color Urine Appearance Urine pH Ur Specific [place] Urine Protein Urine Glucose (UA) Urine Ketones Urine Blood Urine Nitrite Urine Bilirubin Urine Urobilinogen Ur Leukocyte Esterase Urine WBC (Auto) Urine RBC (Auto) U Hyaline Cast (Auto) U Epithel Cells (Auto) Urine Bacteria (Auto) Medications Administered Current Inpatient Medications Acetaminophen (Tylenol) 650 mg PO Q4H PRN PRN Reason: pain/fever Stop: 05/26/20 19:44 Last Admin: 04/27/20 07:52 Dose: 650 mg Documented by: Albuterol (Duoneb) 3 ml INH TIDR [facility] Stop: 05/26/20 20:59 Last Admin: 04/27/20 07:24 Dose: 3 ml Documented by: Apixaban (Eliquis) 2.5 mg PO BID [facility] Stop: 05/26/20 20:59 Last Admin: 04/27/20 07:40 Dose: 2.5 mg Documented by: Cyanocobalamin (Vitamin B-12) 1,000 mcg PO QAM [facility] Stop: 05/27/20 08:59 Last Admin: 04/27/20 07:40 Dose: 1,000 mcg Documented by: Fluticasone/Vilanterol (Breo Ellipta 100/25 Mcg Inh) 1 puffs INH DAILY [facility] Stop: 05/27/20 08:59 Last Admin: 04/27/20 07:41 Dose: 1 puffs Documented by: Folic Acid (Folvite) 800 mcg PO QAM [facility] Stop: 05/27/20 08:59 Last Admin: 04/27/20 07:40 Dose: 800 mcg Documented by: Piperacillin Sod/Tazobactam (Sod 3.375 gm/ Dextrose) 115 mls @ 28.75 mls/hr IV Q8H [facility]; Protocol Stop: 05/06/20 19:59 Last Infusion: 04/27/20 08:21 Dose: Infused Documented by: Fluconazole (Diflucan) 100 mg in 50 mls @ 100 mls/hr IV DAILY [facility]; Protocol Stop: 05/03/20 09:29 Last Infusion: 04/27/20 08:21 Dose: Infused Documented by: Lorazepam (Ativan) 0.5 mg PO DAILY PRN PRN Reason: Anxiety Stop: 05/26/20 19:44 Melatonin (Melatonin) 9 mg PO HS [facility] Stop: 05/26/20 20:59 Last Admin: 04/26/20 21:15 Dose: 9 mg Documented by: Metoprolol Succinate (Toprol Xl) 75 mg PO DAILY [facility] Stop: 05/27/20 08:59 Last Admin: 04/27/20 07:40 Dose: 75 mg Documented by: Miscellaneous Information (Consult) 1 ea N/A UD PRN PRN Reason: Consult Stop: 05/26/20 19:44 Montelukast Sodium (Singulair) 10 mg PO QAM [facility] Stop: 05/27/20 08:59 Last Admin: 04/27/20 07:40 Dose: 10 mg Documented by: Ondansetron HCl (Zofran) 4 mg IV Q6H PRN PRN Reason: Nausea Stop: 05/26/20 19:44 Oxycodone HCl (Roxicodone Immediate Rel) 5 mg PO HS [facility] Stop: 05/10/20 20:59 Last Admin: 04/26/20 21:14 Dose: 5 mg Documented by: Polyethylene Glycol (Miralax Powder Packet) 17 gm PO DAILY [facility] Stop: 05/27/20 08:59 Last Admin: 04/27/20 07:41 Dose: 17 gm Documented by: Potassium Chloride (Klor-Con M10) 10 meq PO Q2D@0900 [facility] Stop: 05/27/20 08:59 Last Admin: 04/27/20 07:40 Dose: 10 meq Documented by: Pravastatin Sodium (Pravachol) 20 mg PO QPM [facility] Stop: 05/26/20 20:59 Last Admin: 04/26/20 21:15 Dose: 20 mg Documented by: Sodium Chloride (Sodium Chlor 7% Neb Solution) 4 ml INH BIDR [facility] Stop: 05/26/20 20:59 Last Admin: 04/27/20 07:24 Dose: 4 ml Documented by: Umeclidinium [place] (Incruse Ellipta) 1 puffs INH DAILY [facility] Stop: 05/27/20 08:59 Last Admin: 04/27/20 07:41 Dose: 1 puffs Documented by: Vitamin D (Vitamin D3) 2,000 units PO QAM [facility] Stop: 05/27/20 08:59 Last Admin: 04/27/20 07:40 Dose: 2,000 units Documented by: PG Care Time/CCT Total # of Minutes Spent Total Time Spent with Patient: Total time spent is greater than 50% in coordination of care (as documented) at patient's floor/unit and/or counseling patient: Coding Level of Care Code 67939 Subseq Hosp Care Lvl 2 Diagnoses Catheter-associated urinary tract infection T83.511A; N39.0 Encounter type: initial encounter Indwelling urinary catheter type: unspecified Fecal impaction K56.41 COPD (chronic obstructive pulmonary disease) J44.9 Weakness R53.1 Anticoagulant long-term use Z79.01 Atrial fibrillation I48.2 Atrial fibrillation type: chronic (1) Catheter-associated urinary tract infection Encounter type: initial encounter Indwelling urinary catheter type: unspecified Qualified Code(s): T83.511A - Infection and inflammatory reaction due to indwelling urethral catheter, initial encounter; N39.0 - Urinary tract infection, site not specified (2) Atrial fibrillation Atrial fibrillation type: chronic Qualified Code(s): I48.2 - Chronic atrial fibrillation
[2020-04-27] MEDS: PRAVASTATIN SOD 20 MG TAB PO SCH (20:21)
[2020-04-27] MEDS ORDERED: SODIUM CHLORIDE 0.65% NA SOLN 45 ML (OCEAN) PRN (20:28)
[2020-04-27] MEDS: ALUMINUM/MAGNESIUM SUSP 30 ML UDC PO PRN (20:53)
[2020-04-27] MEDS: OXYCODONE HCL IR 5 MG TAB (IMMEDIATE RELEASE) PO SCH (21:57)
[2020-04-27] MEDS: MELATONIN 3 MG TAB PO SCH (21:57)
[2020-04-28] MEDS: PIPERACILLIN/TAZOBACTAM 3.375 GM in DEXTROSE 5% 100 ML IV SCH (03:04)
[2020-04-28] MEDS: ACETAMINOPHEN 325 MG TAB PO PRN ×3 (05:10→22:10)
[2020-04-28] MEDS: ALBUT/IPRATROP 3MG/0.5MG NEB 3 ML VIAL INH SCH ×3 (07:06→19:22)
[2020-04-28] MEDS: SODIUM CHLOR 7% 4 ML NEB INH SCH ×2 (07:06→19:06)
[2020-04-28] MEDS: UMECLIDINIUM BROMIDE 62.5MCG/BLISTER 7 PUFFS/INHALER INH SCH (07:56)
[2020-04-28] MEDS: FLUTICASONE/VILANTEROL 100/25MCG 14 PUFFS/INHALER INH SCH (07:56)
[2020-04-28] MEDS: APIXABAN 2.5 MG TAB PO SCH ×2 (07:56→22:08)
[2020-04-28] MEDS: CYANOCOBALAMIN 500 MCG TABLET (VITAMIN B-12) PO SCH (07:57)
[2020-04-28] MEDS: FOLIC ACID 400 MCG TAB PO SCH (07:57)
[2020-04-28] MEDS: MONTELUKAST SODIUM 10 MG TABLET PO SCH (07:57)
[2020-04-28] MEDS: CHOLECALCIFEROL 1,000 UNITS 25 MCG TAB PO SCH (07:58)
[2020-04-28] MEDS: POLYETHYLENE (MIRALAX) 17 GM PACK PO SCH (07:59)
[2020-04-28 08:49] LABS: Basophils # (auto) 0.04 K/uL (0-0.2); Basophils % (auto) 0.3 %; Eosinophils # (auto) 0.44 K/uL (0-0.5); Eosinophils % (auto) 3.5 %; Hemoglobin 9.5 g/dL (14.0-18.0); Immature Granulocytes # (auto) 0.11 K/uL (0.00-0.02); Immature Granulocytes % (auto) 0.9 %; Lymphocytes # (auto) 2.95 K/uL (1.2-3.4); Lymphocytes % (auto) 23.2 %; Mean Corpuscular Hemoglobin 30.1 pg (25-34); Mean Corpuscular Hgb Conc 31.7 g/dL (32-36); Mean Corpuscular Volume 94.9 fL (80-100); Mean Platelet Volume 9.7 fL (7.4-10.4); Monocytes % (auto) 4.7 %; Neutrophils # (auto) 8.55 K/uL (1.4-6.5); Neutrophils % (auto) 67.4 %; Platelet Count 267 K/uL (130-400); RDW Coefficient of Variation 14.4 % (11.5-14.5); RDW Standard Deviation 50.6 fL (36.4-46.3); Red Blood Count 3.16 M/uL (4.7-6.1); White Blood Count 12.69 K/uL (4.8-10.8)
[2020-04-28 09:25] LABS: BUN Creatinine Ratio 17.9 (10-20); Calcium 9.1 mg/dl (8.5-10.1); Creatinine Clr Calc Pharmacy 28.2 ml/min; Est GFR (African American) 37.2; Est GFR (Non-African American) 32.1; Potassium 3.8 mmol/L (3.5-5.1)
[2020-04-28] MEDS: METOPROLOL SUCC 25MG EXT REL TAB PO SCH (09:40)
[2020-04-28] MEDS: FLUCONAZOLE 100 MG/50 ML BAG IV SCH (09:42)
[2020-04-28] MEDS ORDERED: CEFEPIME 2,000 MG in SYRINGE 7.5 ML IV ONE (12:00)
[2020-04-28] MEDS: DOCUSATE SODIUM 100 MG CAP PO SCH ×2 (12:18→22:06)
--- NOTE | 2020-04-28 13:23 | Hospitalist Progress Note ---
Date of Service April 28, 2020 Assessment & Plan (1) Catheter-associated urinary tract infection: tong exchanged in the ED UA with > 30 WBC and bacteria, started on Zosyn initially urine culture already growing Pseudomonas, resistant to quinolones continue Diflucan IV for outpatient Shanna culture -- change to PO today BP stable, WBC improved to 12k, Cr up slightly at 1.87 no evidence of sepsis plan for US guided IV, home IV antibiotics but will treat for 14 days since 10 day course failed will go home on Cefepime 2gm IV daily gave him the option to consider SNF for rehab and IV antibiotics, he flat out refuses, does not want rehab (2) Fecal impaction: molasses enema in the ED, softened stool successful disimpaction in the ED, still with soft stool in rectal vault fecal retention on CT, no obstruction no significant BM since admission will change Miralax to BID, add colace BID, prune juice will try another molasses enema tomorrow if no BM (3) COPD (chronic obstructive pulmonary disease): continue inhalers on oxygen chronically no wheezing, no signs of exacerbation (4) Weakness: ongoing issue refused rehab in the past consult PT/OT CM consultation -- will go home with home health (5) Anticoagulant long-term use: continue NOAC (6) Atrial fibrillation: rates stable anticoagulated Admission and Anticipated Discharge Date Admission Date: April 26, 2020 Subjective still no BM yet, will add Colace and prune juice he is eating okay, says his appetite is poor reviewed final urine culture, Pseudomonas again, same resistance pattern to quinolones spoke with pharmacy, will change to Cefepime 2gm IV daily to make things easy at home placed order for peripheral guided IV d/w patient that he will need IV Cefepime, he said it was tough on his family explained that we could go to SNF for rehab and antibiotics, he refuses to consider this talked with CM, they will work on arranging home IV Cefepime PT/OT working with patient, he says he is weak and gets short of breath easily labs today show WBC 12k, Cr is 1.87 making urine via tong Review of Systems Review of Systems: All systems reviewed & are unremarkable except as noted in Subjective Constitutional: + fatigue and + weakness; no fever Respiratory: + dyspnea on exertion; no cough Cardiovascular: no chest pain and no edema Gastrointestinal: + constipation Physical Exam Constitutional: WD/WN, vitals as above Eyes: PERRL, conjunctivae normal, anicteric sclerae ENMT: external ear and nose normal, oropharynx normal Neck: trachea midline, no thyromegaly Respiratory: normal respiratory effort, lungs clear to auscultation Cardiovascular: RRR, no murmur, no edema Gastrointestinal (Abdomen): Inspection/Auscultation: abdomen normal to inspection and normal bowel sounds; abdomen not distended Percussion/Palpation: abdomen soft; abdomen nontender and no guarding Musculoskeletal: Head/Neck/Chest: normocephalic, head atraumatic and neck supple Extremities: extremities normal to inspection and + abnormal strength (generalized weakness, cannot transfer or stand independently) Skin: no rashes, warm and dry Neurologic: patellar DTR's 2+ bilat, sensation intact and PERRL, EOMI, accommodation nl, no face palsy, no dysarthria Psychiatric: A+Ox3, euthymic affect Lymphatic: no cervical or axillary lymphadenopathy Results & Data Results & Data ([facility]) Vital Signs (Past 12 Hours) Vital Signs Temp Pulse Resp BP Pulse Ox 04/28/20 07:58 36.4 C L 96 H 18 95/63 L 100 04/28/20 07:07 93 H 16 97 Laboratory Results Laboratory Results - last 24 hr 04/28/20 04/28/20 08:38 08:38 WBC 12.69 H RBC 3.16 L Hgb 9.5 L Hct 30.0 L MCV 94.9 MCH 30.1 MCHC 31.7 L RDW Std Deviation 50.6 H RDW Coeff of Ashley 14.4 Plt Count 267 MPV 9.7 Immature Gran % (Auto) 0.9 Neut % (Auto) 67.4 Lymph % (Auto) 23.2 [place] % (Auto) 4.7 Eos % (Auto) 3.5 Baso % (Auto) 0.3 Neut # (Auto) 8.55 H Lymph # (Auto) 2.95 [place] # (Auto) 0.60 H Eos # (Auto) 0.44 Baso # (Auto) 0.04 Immature Gran # (Auto) 0.11 H Sodium 139 Potassium 3.8 Chloride 105 Carbon Dioxide 26 Anion Gap 8.0 BUN 33 H Creatinine 1.87 H D Est Cr Clr Drug Dosing 28.2 Est GFR ( Amer) 37.2 Est GFR (Non-Af Amer) 32.1 BUN/Creatinine Ratio 17.9 Glucose 119 H Calcium 9.1 Medications Administered Current Inpatient Medications Acetaminophen (Tylenol) 650 mg PO Q4H PRN PRN Reason: pain/fever Stop: 05/26/20 19:44 Last Admin: 04/28/20 09:42 Dose: 650 mg Documented by: Al Hydrox/Mg Hydrox/Simethicone (Maalox) 15 ml PO Q6H PRN PRN Reason: Dyspepsia Stop: 05/27/20 20:34 Last Admin: 04/27/20 20:53 Dose: 15 ml Documented by: Albuterol (Duoneb) 3 ml INH TIDR [facility] Stop: 05/26/20 20:59 Last Admin: 04/28/20 07:06 Dose: 3 ml Documented by: Apixaban (Eliquis) 2.5 mg PO BID [facility] Stop: 05/26/20 20:59 Last Admin: 04/28/20 07:56 Dose: 2.5 mg Documented by: Cyanocobalamin (Vitamin B-12) 1,000 mcg PO QAM [facility] Stop: 05/27/20 08:59 Last Admin: 04/28/20 07:57 Dose: 1,000 mcg Documented by: Docusate Sodium (Colace) 100 mg PO BID [facility] Stop: 05/28/20 11:29 Last Admin: 04/28/20 12:18 Dose: 100 mg Documented by: Fluconazole (Diflucan) 100 mg PO DAILY [facility]; Protocol Stop: 05/09/20 08:59 Fluticasone/Vilanterol (Breo Ellipta 100/25 Mcg Inh) 1 puffs INH DAILY [facility] Stop: 05/27/20 08:59 Last Admin: 04/28/20 07:56 Dose: 1 puffs Documented by: Folic Acid (Folvite) 800 mcg PO QAM [facility] Stop: 05/27/20 08:59 Last Admin: 04/28/20 07:57 Dose: 800 mcg Documented by: Cefepime HCl 2,000 mg/ Syringe 20 mls @ 5 mls/min IV DAILY [facility]; Protocol Stop: 05/09/20 08:59 Lorazepam (Ativan) 0.5 mg PO DAILY PRN PRN Reason: Anxiety Stop: 05/26/20 19:44 Melatonin (Melatonin) 9 mg PO HS [facility] Stop: 05/26/20 20:59 Last Admin: 04/27/20 21:57 Dose: 9 mg Documented by: Metoprolol Succinate (Toprol Xl) 75 mg PO DAILY [facility] Stop: 05/27/20 08:59 Last Admin: 04/28/20 09:40 Dose: Not Given Documented by: Montelukast Sodium (Singulair) 10 mg PO QAM [facility] Stop: 05/27/20 08:59 Last Admin: 04/28/20 07:57 Dose: 10 mg Documented by: Ondansetron HCl (Zofran) 4 mg IV Q6H PRN PRN Reason: Nausea Stop: 05/26/20 19:44 Oxycodone HCl (Roxicodone Immediate Rel) 5 mg PO HS [facility] Stop: 05/10/20 20:59 Last Admin: 04/27/20 21:57 Dose: 5 mg Documented by: Polyethylene Glycol (Miralax Powder Packet) 17 gm PO DAILY [facility] Stop: 05/27/20 08:59 Last Admin: 04/28/20 07:59 Dose: 17 gm Documented by: Potassium Chloride (Klor-Con M10) 10 meq PO Q2D@0900 [facility] Stop: 05/27/20 08:59 Last Admin: 04/27/20 07:40 Dose: 10 meq Documented by: Pravastatin Sodium (Pravachol) 20 mg PO QPM [facility] Stop: 05/26/20 20:59 Last Admin: 04/27/20 20:21 Dose: 20 mg Documented by: Sodium Chloride (Sodium Chlor 7% Neb Solution) 4 ml INH BIDR [facility] Stop: 05/26/20 20:59 Last Admin: 04/28/20 07:06 Dose: 4 ml Documented by: Sodium Chloride ([place] Nasal) 1 sprays NA PRN PRN PRN Reason: dry nose Stop: 05/27/20 20:27 Umeclidinium [place] (Incruse Ellipta) 1 puffs INH DAILY [facility] Stop: 05/27/20 08:59 Last Admin: 04/28/20 07:56 Dose: 1 puffs Documented by: Vitamin D (Vitamin D3) 2,000 units PO QAM [facility] Stop: 05/27/20 08:59 Last Admin: 04/28/20 07:58 Dose: 2,000 units Documented by: PG Care Time/CCT Total # of Minutes Spent Total Time Spent with Patient: Total time spent is greater than 50% in coordination of care (as documented) at patient's floor/unit and/or counseling patient: Coding Level of Care Code 23607 Subseq Hosp Care Lvl 3 Diagnoses Catheter-associated urinary tract infection T83.511A; N39.0 Encounter type: initial encounter Indwelling urinary catheter type: unspecified Fecal impaction K56.41 COPD (chronic obstructive pulmonary disease) J44.9 Weakness R53.1 Anticoagulant long-term use Z79.01 Atrial fibrillation I48.2 Atrial fibrillation type: chronic (1) Catheter-associated urinary tract infection Encounter type: initial encounter Indwelling urinary catheter type: unspecified Qualified Code(s): T83.511A - Infection and inflammatory reaction due to indwelling urethral catheter, initial encounter; N39.0 - Urinary tract infection, site not specified (2) Atrial fibrillation Atrial fibrillation type: chronic Qualified Code(s): I48.2 - Chronic atrial fibrillation
[2020-04-28] MEDS: PRAVASTATIN SOD 20 MG TAB PO SCH (22:06)
[2020-04-28] MEDS: OXYCODONE HCL IR 5 MG TAB (IMMEDIATE RELEASE) PO SCH (22:06)
[2020-04-28] MEDS: MELATONIN 3 MG TAB PO SCH (22:07)
[2020-04-29 06:26] LABS: Basophils # (auto) 0.06 K/uL (0-0.2); Basophils % (auto) 0.6 %; Eosinophils # (auto) 0.42 K/uL (0-0.5); Eosinophils % (auto) 3.9 %; Hematocrit (blood only) 28.3 % (42-52); Hemoglobin 8.9 g/dL (14.0-18.0); Immature Granulocytes # (auto) 0.09 K/uL (0.00-0.02); Immature Granulocytes % (auto) 0.8 %; Lymphocytes # (auto) 2.23 K/uL (1.2-3.4); Lymphocytes % (auto) 20.6 %; Mean Corpuscular Hemoglobin 29.9 pg (25-34); Mean Corpuscular Hgb Conc 31.4 g/dL (32-36); Mean Platelet Volume 9.2 fL (7.4-10.4); Monocytes # (auto) 0.92 K/uL (0.11-0.59); Monocytes % (auto) 8.5 %; Neutrophils # (auto) 7.11 K/uL (1.4-6.5); Neutrophils % (auto) 65.6 %; Platelet Count 266 K/uL (130-400); RDW Coefficient of Variation 14.5 % (11.5-14.5); Red Blood Count 2.98 M/uL (4.7-6.1); White Blood Count 10.83 K/uL (4.8-10.8)
[2020-04-29] MEDS: ACETAMINOPHEN 325 MG TAB PO PRN ×3 (06:41→21:59)
[2020-04-29 06:57] LABS: BUN Creatinine Ratio 18.5 (10-20); Calcium 8.8 mg/dl (8.5-10.1); Creatinine Clr Calc Pharmacy 30.3 ml/min; Est GFR (African American) 40.5; Potassium 4.3 mmol/L (3.5-5.1)
[2020-04-29] MEDS: FLUTICASONE/VILANTEROL 100/25MCG 14 PUFFS/INHALER INH SCH (08:53)
[2020-04-29] MEDS: APIXABAN 2.5 MG TAB PO SCH ×2 (08:54→21:59)
[2020-04-29] MEDS: DOCUSATE SODIUM 100 MG CAP PO SCH ×2 (08:54→20:18)
[2020-04-29] MEDS: FOLIC ACID 400 MCG TAB PO SCH (08:54)
[2020-04-29] MEDS: FLUCONAZOLE 100 MG TAB PO SCH (08:54)
[2020-04-29] MEDS: POTASSIUM CHLORIDE 10 MEQ TABCR PO SCH (08:55)
[2020-04-29] MEDS: UMECLIDINIUM BROMIDE 62.5MCG/BLISTER 7 PUFFS/INHALER INH SCH (08:55)
[2020-04-29] MEDS: POLYETHYLENE (MIRALAX) 17 GM PACK PO SCH (08:55)
[2020-04-29] MEDS: MONTELUKAST SODIUM 10 MG TABLET PO SCH (08:56)
[2020-04-29] MEDS: METOPROLOL SUCC 25MG EXT REL TAB PO SCH (08:56)
[2020-04-29] MEDS: CYANOCOBALAMIN 500 MCG TABLET (VITAMIN B-12) PO SCH (08:57)
[2020-04-29] MEDS: CHOLECALCIFEROL 1,000 UNITS 25 MCG TAB PO SCH (08:57)
[2020-04-29] MEDS: CEFEPIME 2,000 MG in SYRINGE 7.5 ML IV SCH (10:12)
[2020-04-29] MEDS: ALBUT/IPRATROP 3MG/0.5MG NEB 3 ML VIAL INH SCH ×3 (10:30→19:29)
[2020-04-29] MEDS: SODIUM CHLOR 7% 4 ML NEB INH SCH ×2 (10:30→19:30)
[2020-04-29] MEDS ORDERED: bisacodyL 10 MG SUPP PR STA (12:21)
--- NOTE | 2020-04-29 12:25 | Hospitalist Progress Note ---
Date of Service April 29, 2020 Assessment & Plan (1) Catheter-associated urinary tract infection: tong exchanged in the ED UA with > 30 WBC and bacteria, started on Zosyn initially urine culture already growing Pseudomonas, resistant to quinolones continue Diflucan IV for outpatient Shanna culture -- change to PO 04/28 BP stable, WBC improved to 10k, Cr down to 1.7 no evidence of sepsis plan for US guided IV, home IV antibiotics but will treat for 14 days since 10 day course failed will go home on Cefepime 2gm IV daily gave him the option to consider SNF for rehab and IV antibiotics, he flat out refuses, does not want rehab could probably go home tomorrow after Cefepime dose, will try to get him to have a BM first (2) Fecal impaction: molasses enema in the ED, softened stool successful disimpaction in the ED, still with soft stool in rectal vault fecal retention on CT, no obstruction no significant BM since admission, passing a lot of flatus will change Miralax to BID, add colace BID, prune juice try a suppository, if unsuccessful will perform rectal exam, may need to disimpact him again (3) COPD (chronic obstructive pulmonary disease): continue inhalers on oxygen chronically no wheezing, no signs of exacerbation (4) Weakness: ongoing issue refused rehab in the past consult PT/OT CM consultation -- will go home with home health, might be ready tomorrow (5) Anticoagulant long-term use: continue NOAC (6) Atrial fibrillation: rates stable anticoagulated Admission and Anticipated Discharge Date Admission Date: April 26, 2020 Subjective patient feeling fine, he is passing a lot of flatus, no BM yet eating fairly well, says his breakfast was cold this morning no dyspnea, no fever/chills, no cough, no nausea reviewed labs, WBC is 10k, Hb 8.9, Cr is down a little at 1.7 discussed going home with IV Cefepime, may be ready tomorrow, will ask CM to arrange, get them a script Review of Systems Review of Systems: All systems reviewed & are unremarkable except as noted in Subjective Gastrointestinal: + constipation Physical Exam Constitutional: WD/WN, vitals as above Eyes: PERRL, conjunctivae normal, anicteric sclerae ENMT: external ear and nose normal, oropharynx normal Neck: trachea midline, no thyromegaly Respiratory: normal respiratory effort, lungs clear to auscultation Cardiovascular: RRR, no murmur, no edema Gastrointestinal (Abdomen): Inspection/Auscultation: abdomen normal to inspection and normal bowel sounds; abdomen not distended Percussion/Palpation: abdomen soft; abdomen nontender and no guarding Musculoskeletal: Head/Neck/Chest: normocephalic, head atraumatic and neck supple Extremities: extremities normal to inspection and + abnormal strength (generalized weakness, cannot transfer or stand independently) Skin: no rashes, warm and dry Neurologic: patellar DTR's 2+ bilat, sensation intact and PERRL, EOMI, accommodation nl, no face palsy, no dysarthria Psychiatric: A+Ox3, euthymic affect Lymphatic: no cervical or axillary lymphadenopathy Results & Data Results & Data ([facility]) Vital Signs (Past 12 Hours) Vital Signs Temp Pulse Resp BP Pulse Ox 04/29/20 08:00 36.7 C 107 H 20 137/82 94 Laboratory Results Laboratory Results - last 24 hr 04/29/20 04/29/20 06:10 06:10 WBC 10.83 H RBC 2.98 L Hgb 8.9 L Hct 28.3 L MCV 95.0 MCH 29.9 MCHC 31.4 L RDW Std Deviation 50.0 H RDW Coeff of [place] 14.5 Plt Count 266 MPV 9.2 Immature Gran % (Auto) 0.8 Neut % (Auto) 65.6 Lymph % (Auto) 20.6 [place] % (Auto) 8.5 Eos % (Auto) 3.9 Baso % (Auto) 0.6 Neut # (Auto) 7.11 H Lymph # (Auto) 2.23 [place] # (Auto) 0.92 H Eos # (Auto) 0.42 Baso # (Auto) 0.06 Immature Gran # (Auto) 0.09 H Sodium 142 Potassium 4.3 Chloride 109 H Carbon Dioxide 28 Anion Gap 5.0 BUN 32 H Creatinine 1.74 H Est Cr Clr Drug Dosing 30.3 Est GFR ( Amer) 40.5 Est GFR (Non-Af Amer) 35.0 BUN/Creatinine Ratio 18.5 Glucose 88 Calcium 8.8 Medications Administered Current Inpatient Medications Acetaminophen (Tylenol) 650 mg PO Q4H PRN PRN Reason: pain/fever Stop: 05/26/20 19:44 Last Admin: 04/29/20 10:13 Dose: 650 mg Documented by: Al Hydrox/Mg Hydrox/Simethicone (Maalox) 15 ml PO Q6H PRN PRN Reason: Dyspepsia Stop: 05/27/20 20:34 Last Admin: 04/27/20 20:53 Dose: 15 ml Documented by: Albuterol (Duoneb) 3 ml INH TIDR [facility] Stop: 05/26/20 20:59 Last Admin: 04/29/20 10:30 Dose: Not Given Documented by: Apixaban (Eliquis) 2.5 mg PO BID [facility] Stop: 05/26/20 20:59 Last Admin: 04/29/20 08:54 Dose: 2.5 mg Documented by: Cyanocobalamin (Vitamin B-12) 1,000 mcg PO QAM [facility] Stop: 05/27/20 08:59 Last Admin: 04/29/20 08:57 Dose: 1,000 mcg Documented by: Docusate Sodium (Colace) 100 mg PO BID [facility] Stop: 05/28/20 11:29 Last Admin: 04/29/20 08:54 Dose: 100 mg Documented by: Fluconazole (Diflucan) 100 mg PO DAILY [facility]; Protocol Stop: 05/09/20 08:59 Last Admin: 04/29/20 08:54 Dose: 100 mg Documented by: Fluticasone/Vilanterol (Breo Ellipta 100/25 Mcg Inh) 1 puffs INH DAILY [facility] Stop: 05/27/20 08:59 Last Admin: 04/29/20 08:53 Dose: 1 puffs Documented by: Folic Acid (Folvite) 800 mcg PO QAM [facility] Stop: 05/27/20 08:59 Last Admin: 04/29/20 08:54 Dose: 800 mcg Documented by: Cefepime HCl 2,000 mg/ Syringe 20 mls @ 5 mls/min IV DAILY [facility]; Protocol Stop: 05/09/20 08:59 Last Admin: 04/29/20 10:12 Dose: 5 mls/min Documented by: Lorazepam (Ativan) 0.5 mg PO DAILY PRN PRN Reason: Anxiety Stop: 05/26/20 19:44 Melatonin (Melatonin) 9 mg PO HS [facility] Stop: 05/26/20 20:59 Last Admin: 04/28/20 22:07 Dose: 9 mg Documented by: Metoprolol Succinate (Toprol Xl) 75 mg PO DAILY [facility] Stop: 05/27/20 08:59 Last Admin: 04/29/20 08:56 Dose: 75 mg Documented by: Montelukast Sodium (Singulair) 10 mg PO QAM [facility] Stop: 05/27/20 08:59 Last Admin: 04/29/20 08:56 Dose: 10 mg Documented by: Ondansetron HCl (Zofran) 4 mg IV Q6H PRN PRN Reason: Nausea Stop: 05/26/20 19:44 Oxycodone HCl (Roxicodone Immediate Rel) 5 mg PO HS [facility] Stop: 05/10/20 20:59 Last Admin: 04/28/20 22:06 Dose: 5 mg Documented by: Polyethylene Glycol (Miralax Powder Packet) 17 gm PO DAILY [facility] Stop: 05/27/20 08:59 Last Admin: 04/29/20 08:55 Dose: 17 gm Documented by: Potassium Chloride (Klor-Con M10) 10 meq PO Q2D@0900 [facility] Stop: 05/27/20 08:59 Last Admin: 04/29/20 08:55 Dose: 10 meq Documented by: Pravastatin Sodium (Pravachol) 20 mg PO QPM [facility] Stop: 05/26/20 20:59 Last Admin: 04/28/20 22:06 Dose: 20 mg Documented by: Sodium Chloride (Sodium Chlor 7% Neb Solution) 4 ml INH BIDR [facility] Stop: 05/26/20 20:59 Last Admin: 04/29/20 10:30 Dose: Not Given Documented by: Sodium Chloride ([place] Nasal) 1 sprays NA PRN PRN PRN Reason: dry nose Stop: 05/27/20 20:27 Umeclidinium [place] (Incruse Ellipta) 1 puffs INH DAILY [facility] Stop: 05/27/20 08:59 Last Admin: 04/29/20 08:55 Dose: 1 puffs Documented by: Vitamin D (Vitamin D3) 2,000 units PO QAM [facility] Stop: 05/27/20 08:59 Last Admin: 04/29/20 08:57 Dose: 2,000 units Documented by: PG Care Time/CCT Total # of Minutes Spent Total Time Spent with Patient: Total time spent is greater than 50% in coordination of care (as documented) at patient's floor/unit and/or counseling patient: Coding Level of Care Code 76001 Subseq Hosp Care Lvl 2 Diagnoses Catheter-associated urinary tract infection T83.511A; N39.0 Encounter type: initial encounter Indwelling urinary catheter type: unspecified Fecal impaction K56.41 COPD (chronic obstructive pulmonary disease) J44.9 Weakness R53.1 Anticoagulant long-term use Z79.01 Atrial fibrillation I48.2 Atrial fibrillation type: chronic (1) Catheter-associated urinary tract infection Encounter type: initial encounter Indwelling urinary catheter type: unspecified Qualified Code(s): T83.511A - Infection and inflammatory reaction due to indwelling urethral catheter, initial encounter; N39.0 - Urinary tract infection, site not specified (2) Atrial fibrillation Atrial fibrillation type: chronic Qualified Code(s): I48.2 - Chronic atrial fibrillation
[2020-04-29] MEDS: ALUMINUM/MAGNESIUM SUSP 30 ML UDC PO PRN (20:20)
[2020-04-29] MEDS: PRAVASTATIN SOD 20 MG TAB PO SCH (21:59)
[2020-04-29] MEDS: OXYCODONE HCL IR 5 MG TAB (IMMEDIATE RELEASE) PO SCH (21:59)
[2020-04-29] MEDS: MELATONIN 3 MG TAB PO SCH (21:59)
[2020-04-30] MEDS: ALBUT/IPRATROP 3MG/0.5MG NEB 3 ML VIAL INH SCH ×3 (07:22→19:04)
[2020-04-30] MEDS: SODIUM CHLOR 7% 4 ML NEB INH SCH ×2 (07:22→19:04)
[2020-04-30 08:32] LABS: Basophils # (auto) 0.04 K/uL (0-0.2); Basophils % (auto) 0.4 %; Eosinophils # (auto) 0.32 K/uL (0-0.5); Eosinophils % (auto) 3.5 %; Hematocrit (blood only) 27.9 % (42-52); Hemoglobin 8.7 g/dL (14.0-18.0); Immature Granulocytes % (auto) 1.1 %; Lymphocytes % (auto) 21.9 %; Mean Corpuscular Hgb Conc 31.2 g/dL (32-36); Mean Corpuscular Volume 96.2 fL (80-100); Mean Platelet Volume 9.6 fL (7.4-10.4); Monocytes # (auto) 0.92 K/uL (0.11-0.59); Monocytes % (auto) 10.1 %; Neutrophils # (auto) 5.77 K/uL (1.4-6.5); Platelet Count 281 K/uL (130-400); RDW Coefficient of Variation 14.7 % (11.5-14.5); RDW Standard Deviation 51.6 fL (36.4-46.3); White Blood Count 9.15 K/uL (4.8-10.8)
[2020-04-30] MEDS: FLUTICASONE/VILANTEROL 100/25MCG 14 PUFFS/INHALER INH SCH (08:37)
[2020-04-30] MEDS: UMECLIDINIUM BROMIDE 62.5MCG/BLISTER 7 PUFFS/INHALER INH SCH (08:37)
[2020-04-30] MEDS: CYANOCOBALAMIN 500 MCG TABLET (VITAMIN B-12) PO SCH (08:37)
[2020-04-30] MEDS: CHOLECALCIFEROL 1,000 UNITS 25 MCG TAB PO SCH (08:37)
[2020-04-30] MEDS: APIXABAN 2.5 MG TAB PO SCH ×2 (08:38→21:45)
[2020-04-30] MEDS: FOLIC ACID 400 MCG TAB PO SCH (08:38)
[2020-04-30] MEDS: METOPROLOL SUCC 25MG EXT REL TAB PO SCH (08:38)
[2020-04-30] MEDS: FLUCONAZOLE 100 MG TAB PO SCH (08:38)
[2020-04-30] MEDS: MONTELUKAST SODIUM 10 MG TABLET PO SCH (08:38)
[2020-04-30] MEDS: POLYETHYLENE (MIRALAX) 17 GM PACK PO SCH (08:54)
[2020-04-30] MEDS: DOCUSATE SODIUM 100 MG CAP PO SCH ×2 (08:54→17:41)
[2020-04-30] MEDS: CEFEPIME 2,000 MG in SYRINGE 7.5 ML IV SCH (08:54)
[2020-04-30 08:58] LABS: BUN Creatinine Ratio 19.1 (10-20); Calcium 9.2 mg/dl (8.5-10.1); Creatinine Clr Calc Pharmacy 28.4 ml/min; Est GFR (African American) 37.4; Est GFR (Non-African American) 32.3; Potassium 4.3 mmol/L (3.5-5.1)
[2020-04-30] MEDS: ACETAMINOPHEN 325 MG TAB PO PRN ×3 (09:46→21:46)
--- NOTE | 2020-04-30 16:02 | Hospitalist Progress Note ---
Date of Service April 30, 2020 Assessment & Plan (1) Catheter-associated urinary tract infection: tong exchanged in the ED UA with > 30 WBC and bacteria, started on Zosyn initially urine culture already growing Pseudomonas, resistant to quinolones continue Diflucan IV for outpatient Shanna culture -- change to PO 04/28 BP stable, WBC improved to 9k, Cr stable at 1.8 no evidence of sepsis US guided IV placed, home IV antibiotics but will treat for 14 days since 10 day course failed will go home on Cefepime 2gm IV daily, script given to CM gave him the option to consider SNF for rehab and IV antibiotics, he flat out refuses, does not want rehab plan to d/c to home tomorrow after Cefepime IV given here continue Diflucan PO for 10 more days (2) Fecal impaction: molasses enema in the ED, softened stool successful disimpaction in the ED, still with soft stool in rectal vault fecal retention on CT, no obstruction had a large BM yesterday afternoon another soft BM today has a lot of flatus, not sure there is much to do for that (3) COPD (chronic obstructive pulmonary disease): continue inhalers on oxygen chronically, chronic hypoxic respiratory failure, 2.5L continuous no wheezing, no signs of exacerbation (4) Weakness: ongoing issue refused rehab in the past consult PT/OT CM consultation -- will go home with home health, should be ready tomorrow (5) Anticoagulant long-term use: continue NOAC (6) Atrial fibrillation: rates stable anticoagulated Admission and Anticipated Discharge Date Admission Date: April 26, 2020 Subjective patient feeling weak today, says he is too weak to go home discussed that he is weak at baseline, that he sits in recliner, sleeps in recliner, lives on one floor discussed that we could explore going to SNF for rehab, he refuses to consider this, says it is useless he says he has a lot of gas, asked if there is something to help with this, he uses Gas X at home, does not help he says he is moving his bowels no fever/chills, no dyspnea reviewed labs, WBC 9k, Hb 8.7, Cr 1.86, K 4.3 he says he will be ready to go home tomorrow, he says his misses having him at home told CM that he will be ready to go tomorrow, they will arrange home IV antibiotics Review of Systems Review of Systems: All systems reviewed & are unremarkable except as noted in Subjective Physical Exam Constitutional: WD/WN, vitals as above Eyes: PERRL, conjunctivae normal, anicteric sclerae ENMT: external ear and nose normal, oropharynx normal Neck: trachea midline, no thyromegaly Respiratory: normal respiratory effort, lungs clear to auscultation Cardiovascular: RRR, no murmur, no edema Gastrointestinal (Abdomen): Inspection/Auscultation: abdomen normal to inspection and normal bowel sounds; abdomen not distended Percussion/Palpation: abdomen soft; abdomen nontender and no guarding Musculoskeletal: Head/Neck/Chest: normocephalic, head atraumatic and neck supple Extremities: extremities normal to inspection and + abnormal strength (generalized weakness, cannot transfer or stand independently) Skin: no rashes, warm and dry Neurologic: patellar DTR's 2+ bilat, sensation intact and PERRL, EOMI, accommodation nl, no face palsy, no dysarthria Psychiatric: A+Ox3, euthymic affect Lymphatic: no cervical or axillary lymphadenopathy Results & Data Results & Data ([facility]) Vital Signs (Past 12 Hours) Vital Signs Temp Pulse Pulse Resp BP Pulse Ox 04/30/20 15:10 36.3 C L 81 17 120/72 96 04/30/20 13:11 88 18 04/30/20 08:00 36.2 C L 94 H 16 109/71 97 04/30/20 07:23 97 H 18 97 Laboratory Results Laboratory Results - last 24 hr 04/30/20 04/30/20 08:09 08:09 WBC 9.15 RBC 2.90 L Hgb 8.7 L Hct 27.9 L MCV 96.2 MCH 30.0 MCHC 31.2 L RDW Std Deviation 51.6 H RDW Coeff of Ashley 14.7 H Plt Count 281 MPV 9.6 Immature Gran % (Auto) 1.1 Neut % (Auto) 63.0 Lymph % (Auto) 21.9 Johnson % (Auto) 10.1 Eos % (Auto) 3.5 Baso % (Auto) 0.4 Neut # (Auto) 5.77 Lymph # (Auto) 2.00 Johnson # (Auto) 0.92 H Eos # (Auto) 0.32 Baso # (Auto) 0.04 Immature Gran # (Auto) 0.10 H Sodium 140 Potassium 4.3 Chloride 108 H Carbon Dioxide 27 Anion Gap 5.0 BUN 36 H Creatinine 1.86 H Est Cr Clr Drug Dosing 28.4 Est GFR ( Amer) 37.4 Est GFR (Non-Af Amer) 32.3 BUN/Creatinine Ratio 19.1 Glucose 88 Calcium 9.2 Medications Administered Current Inpatient Medications Acetaminophen (Tylenol) 650 mg PO Q4H PRN PRN Reason: pain/fever Stop: 05/26/20 19:44 Last Admin: 04/30/20 14:30 Dose: 650 mg Documented by: Al Hydrox/Mg Hydrox/Simethicone (Maalox) 15 ml PO Q6H PRN PRN Reason: Dyspepsia Stop: 05/27/20 20:34 Last Admin: 04/29/20 20:20 Dose: 15 ml Documented by: Albuterol (Duoneb) 3 ml INH TIDR [facility] Stop: 05/26/20 20:59 Last Admin: 04/30/20 13:10 Dose: 3 ml Documented by: Apixaban (Eliquis) 2.5 mg PO BID [facility] Stop: 05/26/20 20:59 Last Admin: 04/30/20 08:38 Dose: 2.5 mg Documented by: Cyanocobalamin (Vitamin B-12) 1,000 mcg PO QAM [facility] Stop: 05/27/20 08:59 Last Admin: 04/30/20 08:37 Dose: 1,000 mcg Documented by: Docusate Sodium (Colace) 100 mg PO BID [facility] Stop: 05/28/20 11:29 Last Admin: 04/30/20 08:54 Dose: 100 mg Documented by: Fluconazole (Diflucan) 100 mg PO DAILY [facility]; Protocol Stop: 05/09/20 08:59 Last Admin: 04/30/20 08:38 Dose: 100 mg Documented by: Fluticasone/Vilanterol (Breo Ellipta 100/25 Mcg Inh) 1 puffs INH DAILY [facility] Stop: 05/27/20 08:59 Last Admin: 04/30/20 08:37 Dose: 1 puffs Documented by: Folic Acid (Folvite) 800 mcg PO QAM [facility] Stop: 05/27/20 08:59 Last Admin: 04/30/20 08:38 Dose: 800 mcg Documented by: Cefepime HCl 2,000 mg/ Syringe 20 mls @ 5 mls/min IV DAILY [facility]; Protocol Stop: 05/09/20 08:59 Last Admin: 04/30/20 08:54 Dose: 5 mls/min Documented by: Lorazepam (Ativan) 0.5 mg PO DAILY PRN PRN Reason: Anxiety Stop: 05/26/20 19:44 Melatonin (Melatonin) 9 mg PO HS [facility] Stop: 05/26/20 20:59 Last Admin: 04/29/20 21:59 Dose: 9 mg Documented by: Metoprolol Succinate (Toprol Xl) 75 mg PO DAILY [facility] Stop: 05/27/20 08:59 Last Admin: 04/30/20 08:38 Dose: 75 mg Documented by: Montelukast Sodium (Singulair) 10 mg PO QAM [facility] Stop: 05/27/20 08:59 Last Admin: 04/30/20 08:38 Dose: 10 mg Documented by: Ondansetron HCl (Zofran) 4 mg IV Q6H PRN PRN Reason: Nausea Stop: 05/26/20 19:44 Oxycodone HCl (Roxicodone Immediate Rel) 5 mg PO HS [facility] Stop: 05/10/20 20:59 Last Admin: 04/29/20 21:59 Dose: 5 mg Documented by: Polyethylene Glycol (Miralax Powder Packet) 17 gm PO DAILY [facility] Stop: 05/27/20 08:59 Last Admin: 04/30/20 08:54 Dose: 17 gm Documented by: Potassium Chloride (Klor-Con M10) 10 meq PO Q2D@0900 [facility] Stop: 05/27/20 08:59 Last Admin: 04/29/20 08:55 Dose: 10 meq Documented by: Pravastatin Sodium (Pravachol) 20 mg PO QPM [facility] Stop: 05/26/20 20:59 Last Admin: 04/29/20 21:59 Dose: 20 mg Documented by: Sodium Chloride (Sodium Chlor 7% Neb Solution) 4 ml INH BIDR [facility] Stop: 05/26/20 20:59 Last Admin: 04/30/20 07:22 Dose: 4 ml Documented by: Sodium Chloride (Nicollet Nasal) 1 sprays NA PRN PRN PRN Reason: dry nose Stop: 05/27/20 20:27 Umeclidinium [place] (Incruse Ellipta) 1 puffs INH DAILY [facility] Stop: 05/27/20 08:59 Last Admin: 04/30/20 08:37 Dose: 1 puffs Documented by: Vitamin D (Vitamin D3) 2,000 units PO QAM [facility] Stop: 05/27/20 08:59 Last Admin: 04/30/20 08:37 Dose: 2,000 units Documented by: PG Care Time/CCT Total # of Minutes Spent Total Time Spent with Patient: Total time spent is greater than 50% in coordination of care (as documented) at patient's floor/unit and/or counseling patient: Coding Level of Care Code 61036 Subseq Hosp Care Lvl 2 Diagnoses Catheter-associated urinary tract infection T83.511A; N39.0 Encounter type: initial encounter Indwelling urinary catheter type: unspecified Fecal impaction K56.41 COPD (chronic obstructive pulmonary disease) J44.9 Weakness R53.1 Anticoagulant long-term use Z79.01 Atrial fibrillation I48.2 Atrial fibrillation type: chronic (1) Catheter-associated urinary tract infection Encounter type: initial encounter Indwelling urinary catheter type: unspecified Qualified Code(s): T83.511A - Infection and inflammatory reaction due to indwelling urethral catheter, initial encounter; N39.0 - Urinary tract infection, site not specified (2) Atrial fibrillation Atrial fibrillation type: chronic Qualified Code(s): I48.2 - Chronic atrial fibrillation
[2020-04-30] MEDS: ALUMINUM/MAGNESIUM SUSP 30 ML UDC PO PRN (17:39)
[2020-04-30] MEDS: MELATONIN 3 MG TAB PO SCH (21:45)
[2020-04-30] MEDS: PRAVASTATIN SOD 20 MG TAB PO SCH (21:45)
[2020-04-30] MEDS: OXYCODONE HCL IR 5 MG TAB (IMMEDIATE RELEASE) PO SCH (21:45)
[2020-05-01] MEDS: SODIUM CHLOR 7% 4 ML NEB INH SCH ×2 (06:56→19:27)
[2020-05-01] MEDS: ALBUT/IPRATROP 3MG/0.5MG NEB 3 ML VIAL INH SCH ×3 (06:56→19:26)
[2020-05-01] MEDS: ACETAMINOPHEN 325 MG TAB PO PRN ×2 (07:39→13:01)
[2020-05-01] MEDS: POTASSIUM CHLORIDE 10 MEQ TABCR PO SCH (07:40)
[2020-05-01] MEDS: CHOLECALCIFEROL 1,000 UNITS 25 MCG TAB PO SCH (07:40)
[2020-05-01] MEDS: MONTELUKAST SODIUM 10 MG TABLET PO SCH (07:40)
[2020-05-01] MEDS: FOLIC ACID 400 MCG TAB PO SCH (07:41)
[2020-05-01] MEDS: CYANOCOBALAMIN 500 MCG TABLET (VITAMIN B-12) PO SCH (07:41)
[2020-05-01] MEDS: FLUTICASONE/VILANTEROL 100/25MCG 14 PUFFS/INHALER INH SCH (07:41)
[2020-05-01] MEDS: FLUCONAZOLE 100 MG TAB PO SCH (07:41)
[2020-05-01] MEDS: APIXABAN 2.5 MG TAB PO SCH ×2 (07:41→20:04)
[2020-05-01] MEDS: METOPROLOL SUCC 25MG EXT REL TAB PO SCH (07:41)
[2020-05-01] MEDS: UMECLIDINIUM BROMIDE 62.5MCG/BLISTER 7 PUFFS/INHALER INH SCH (07:42)
[2020-05-01] MEDS: DOCUSATE SODIUM 100 MG CAP PO SCH ×2 (07:43→20:07)
[2020-05-01] MEDS: POLYETHYLENE (MIRALAX) 17 GM PACK PO SCH (07:45)
[2020-05-01] MEDS: CEFEPIME 2,000 MG in SYRINGE 7.5 ML IV SCH (08:46)
[2020-05-01] MEDS ORDERED: SIMETHICONE 80 MG CHEW PO PRN (14:04)
--- NOTE | 2020-05-01 14:05 | Hospitalist Progress Note ---
Date of Service May 01, 2020 Assessment & Plan (1) Catheter-associated urinary tract infection: 2nd pseudomonas. also with ramonita albicans earlier this month. chronic tong -- exchanged in the ED this admission. US guided IV in plan. planning 14-day course of IV cefepime. day #3 of such. continue Diflucan PO for 9 more days. (2) Fecal impaction: resolved. KUB x-ray today with normal bowel gas pattern and resolution of constipation. needs bowel maintenance at discharge. (3) COPD (chronic obstructive pulmonary disease): cont usual inhalers no exacerbation (4) Weakness: acute/chronic minimal activity at home, but now 2-person assist for transfers I called and spoke with daughter - shared my concerns that transition home would be difficult and that rehab is best option family feels they can continue to care for him another daughter lives next door to him and his will d/w social work in am (5) Anticoagulant long-term use: continue eliquis (6) Atrial fibrillation: PAF in NSR this admission eliquis beta alan (7) Chronic respiratory failure with hypoxia: 2.5 l at baseline continuously likely due to COPD (8) Chronic kidney disease, stage 3: baseline Cr 1.6 to 1.8 (9) BPH (benign prostatic hyperplasia): not on meds for such BPH cause of chronic tong use?? (10) Hypertension: cont home meds (11) DVT prophylaxis: eliquis ideally pt goes to SNF for rehab refusing home with HH - I shared my concerns w/ family by phone today home tomorrow likely Admission and Anticipated Discharge Date Admission Date: April 26, 2020 Subjective patient overall feeling. passing lots of flatus. had tiny BM this am. eating fair. no dyspnea. reports 2 L NC O2 at home continuously. no vomiting. declined PT today. states he lives with in [place]. sleeps in a special chair. only ambulates to [place] 1x/day w/ assistance. has not been OOB for 2 days here at the hospital. Review of Systems Constitutional: no fever Respiratory: + dyspnea on exertion; no cough and no dyspnea Cardiovascular: no chest pain Gastrointestinal: no abdominal pain Physical Exam Constitutional: no acute distress and no altered mental status ENMT: external ear and nose normal, oropharynx normal Respiratory: normal respiratory effort, lungs clear to auscultation Cardiovascular: Rate/Rhythm: regular rate and regular rhythm Heart Sounds: normal S1 and normal S2; no murmur Vessels: posterior tibial pulses present and dorsalis pedis pulses present; no JVD Extremities: no edema Gastrointestinal (Abdomen): Inspection/Auscultation: + abdomen distended (mild) and normal bowel sounds Percussion/Palpation: abdomen soft; abdomen nontender and no guarding Psychiatric: A+Ox3, euthymic affect Results & Data Results & Data ([facility]) Vital Signs (Past 12 Hours) Vital Signs Pulse Resp Pulse Ox 05/01/20 13:10 103 H 18 91 05/01/20 06:59 86 16 97 PG Care Time/CCT Total # of Minutes Spent Total Time Spent with Patient: Total time spent is greater than 50% in coordination of care (as documented) at patient's floor/unit and/or counseling patient: Coding Level of Care Code 03945 Subseq Hosp Care Lvl 2 Diagnoses Catheter-associated urinary tract infection T83.511A; N39.0 Encounter type: initial encounter Indwelling urinary catheter type: unspecified Fecal impaction K56.41 COPD (chronic obstructive pulmonary disease) J44.9 Weakness R53.1 Anticoagulant long-term use Z79.01 Atrial fibrillation I48.2 Atrial fibrillation type: chronic Chronic respiratory failure with hypoxia J96.11 Chronic kidney disease, stage 3 N18.3 BPH (benign prostatic hyperplasia) N40.1; R33.8 Lower urinary tract symptom presence: symptoms present Lower urinary tract symptom detail: urinary retention Hypertension I10 Hypertension type: essential hypertension DVT prophylaxis Z29.9 (1) Catheter-associated urinary tract infection Encounter type: initial encounter Indwelling urinary catheter type: unspecified Qualified Code(s): T83.511A - Infection and inflammatory reaction due to indwelling urethral catheter, initial encounter; N39.0 - Urinary tract infection, site not specified (2) Atrial fibrillation Atrial fibrillation type: chronic Qualified Code(s): I48.2 - Chronic atrial fibrillation (3) BPH (benign prostatic hyperplasia) Lower urinary tract symptom presence: symptoms present Lower urinary tract symptom detail: urinary retention Qualified Code(s): N40.1 - Benign prostatic hyperplasia with lower urinary tract symptoms; R33.8 - Other retention of urine (4) Hypertension Hypertension type: essential hypertension Qualified Code(s): I10 - Essential (primary) hypertension
--- NOTE | 2020-05-01 15:09 | XRay Report ---
XR KUB/Abdomen 1 view CLINICAL HISTORY: fecal impaction; quantitate stool COMPARISON STUDY: 07/02/2019 FINDINGS: Nonobstructive bowel pattern. Normal fecal load within the rectum. No evidence for fecal st asis or obstructive change. The bowel pattern overall is unremarkable. There is a Venegas catheter in position. IMPRESSION: 1. No current evidence for fecal impaction or obstructive change. 2. No evidence for fecal stasis. 3. Nonobstructive bowel pattern. ACT 112: Negative or not required by law. The above report was generated using voice recognition software. It may contain grammatical, syntax or spelling errors. Electronically signed by: Derrek Watkins M.D. 05/01/2020 3:08 PM
[2020-05-01] MEDS: OXYCODONE HCL IR 5 MG TAB (IMMEDIATE RELEASE) PO SCH (20:05)
[2020-05-01] MEDS: PRAVASTATIN SOD 20 MG TAB PO SCH (20:05)
[2020-05-01] MEDS: MELATONIN 3 MG TAB PO SCH (20:07)
[2020-05-02] MEDS: ACETAMINOPHEN 325 MG TAB PO PRN ×3 (06:04→21:58)
[2020-05-02] MEDS: SODIUM CHLOR 7% 4 ML NEB INH SCH ×2 (06:52→20:08)
[2020-05-02] MEDS: ALBUT/IPRATROP 3MG/0.5MG NEB 3 ML VIAL INH SCH ×3 (06:52→20:08)
[2020-05-02 09:01] LABS: BUN Creatinine Ratio 16.9 (10-20); Calcium 9.3 mg/dl (8.5-10.1); Est GFR (African American) 38.4; Est GFR (Non-African American) 33.1; Potassium 4.5 mmol/L (3.5-5.1)
[2020-05-02 09:06] LABS: Ferritin 19.1 ng/ml (8-388)
[2020-05-02] MEDS: FLUTICASONE/VILANTEROL 100/25MCG 14 PUFFS/INHALER INH SCH (09:22)
[2020-05-02] MEDS: UMECLIDINIUM BROMIDE 62.5MCG/BLISTER 7 PUFFS/INHALER INH SCH (09:22)
[2020-05-02] MEDS: FLUCONAZOLE 100 MG TAB PO SCH (09:24)
[2020-05-02] MEDS: METOPROLOL SUCC 25MG EXT REL TAB PO SCH (09:24)
[2020-05-02] MEDS: FOLIC ACID 400 MCG TAB PO SCH (09:24)
[2020-05-02] MEDS: APIXABAN 2.5 MG TAB PO SCH ×2 (09:24→20:34)
[2020-05-02] MEDS: CYANOCOBALAMIN 500 MCG TABLET (VITAMIN B-12) PO SCH (09:24)
[2020-05-02] MEDS: MONTELUKAST SODIUM 10 MG TABLET PO SCH (09:24)
[2020-05-02] MEDS: CHOLECALCIFEROL 1,000 UNITS 25 MCG TAB PO SCH (09:24)
[2020-05-02] MEDS: CEFEPIME 2,000 MG in SYRINGE 7.5 ML IV SCH (09:28)
[2020-05-02] MEDS: DOCUSATE SODIUM 100 MG CAP PO SCH ×2 (09:28→20:34)
[2020-05-02] MEDS: POLYETHYLENE (MIRALAX) 17 GM PACK PO SCH (09:28)
--- NOTE | 2020-05-02 17:14 | Hospitalist Progress Note ---
Date of Service May 02, 2020 Assessment & Plan (1) Catheter-associated urinary tract infection: 2nd pseudomonas. also with ramonita albicans earlier this month. chronic tong -- exchanged in the ED this admission. US guided IV in plan. planning 14-day course of IV cefepime. day #4 of such. continue Diflucan PO for 8 more days. (2) Fecal impaction: resolved. cont bowel maintenance. (3) COPD (chronic obstructive pulmonary disease): cont usual inhalers now with exacerbation start prednisone 40mg daily increase duonebs to qid from TID obtain 2-view cxr to r/o pneumonia process, edema, etc (4) Weakness: acute/chronic minimal activity at home, but now 2-person assist for transfers I called and spoke with daughter - shared my concerns that transition home would be difficult and that rehab is best option family feels they can continue to care for him another daughter lives next door to him and his I discussed this with social work today -- trying to contact his daughter that lives local - no success thus far need to figure out disposition (5) Anticoagulant long-term use: continue eliquis (6) Atrial fibrillation: PAF in NSR this admission eliquis beta alan (7) Chronic respiratory failure with hypoxia: 2.5 l at baseline continuously due to COPD (8) Chronic kidney disease, stage 3: baseline Cr 1.6 to 1.8 (9) BPH (benign prostatic hyperplasia): not on meds for such BPH cause of chronic tong use?? (10) Hypertension: cont home meds (11) DVT prophylaxis: eliquis ideally pt goes to SNF for rehab refusing adamantly however social work aware of dispo issues Admission and Anticipated Discharge Date Admission Date: April 26, 2020 Subjective patient feels more dyspneic today coughing a bit more no abd pain had large BM today refused to get OOB today and declined therapy again social work attempted to contact his daughter who lives local to no avail Review of Systems Constitutional: no fever Respiratory: + cough and + wheezing Cardiovascular: + dyspnea at rest; no chest pain Gastrointestinal: no abdominal pain, no nausea and no vomiting Physical Exam Constitutional: no acute distress and no altered mental status ENMT: external ear and nose normal, oropharynx normal Respiratory: no respiratory distress Auscultation: + crackles (bases) and + wheezes (extensive - worse than yesterday) Cardiovascular: Rate/Rhythm: regular rate and regular rhythm Heart Sounds: normal S1 and normal S2; no murmur Vessels: posterior tibial pulses present and dorsalis pedis pulses present; no JVD Extremities: no edema Gastrointestinal (Abdomen): Inspection/Auscultation: + abdomen distended (mild) and normal bowel sounds Percussion/Palpation: abdomen soft; abdomen nontender and no guarding Psychiatric: A+Ox3, euthymic affect Results & Data Results & Data ([facility]) Vital Signs (Past 12 Hours) Vital Signs Temp Pulse Pulse Resp BP Pulse Ox 05/02/20 16:24 36.6 C 98 H 18 139/76 92 05/02/20 13:44 104 H 18 95 05/02/20 07:32 36.6 C 114 H 16 135/64 90 05/02/20 06:55 100 H 18 94 Laboratory Results Laboratory Results - last 24 hr 05/02/20 08:13 Sodium 138 Potassium 4.5 Chloride 107 Carbon Dioxide 24 Anion Gap 7.0 BUN 31 H Creatinine 1.82 H Est Cr Clr Drug Dosing 29.0 Est GFR ( Amer) 38.4 Est GFR (Non-Af Amer) 33.1 BUN/Creatinine Ratio 16.9 Glucose 86 Calcium 9.3 Iron 27 L Transferrin 207 Transferrin % Sat 9 L Ferritin 19.1 PG Care Time/CCT Total # of Minutes Spent Total Time Spent with Patient: Total time spent is greater than 50% in coordination of care (as documented) at patient's floor/unit and/or counseling patient: Coding Level of Care Code 63482 Subseq Hosp Care Lvl 2 Diagnoses Catheter-associated urinary tract infection T83.511A; N39.0 Encounter type: initial encounter Indwelling urinary catheter type: unspecified Fecal impaction K56.41 COPD (chronic obstructive pulmonary disease) J44.9 Weakness R53.1 Anticoagulant long-term use Z79.01 Atrial fibrillation I48.2 Atrial fibrillation type: chronic Chronic respiratory failure with hypoxia J96.11 Chronic kidney disease, stage 3 N18.3 BPH (benign prostatic hyperplasia) N40.1; R33.8 Lower urinary tract symptom detail: urinary retention Lower urinary tract symptom presence: symptoms present Hypertension I10 Hypertension type: essential hypertension DVT prophylaxis Z29.9 (1) BPH (benign prostatic hyperplasia) Lower urinary tract symptom detail: urinary retention Lower urinary tract symptom presence: symptoms present Qualified Code(s): N40.1 - Benign prostatic hyperplasia with lower urinary tract symptoms; R33.8 - Other retention of urine (2) Catheter-associated urinary tract infection Encounter type: initial encounter Indwelling urinary catheter type: unspecified Qualified Code(s): T83.511A - Infection and inflammatory reaction due to indwelling urethral catheter, initial encounter; N39.0 - Urinary tract infection, site not specified (3) Atrial fibrillation Atrial fibrillation type: chronic Qualified Code(s): I48.2 - Chronic atrial fibrillation (4) Hypertension Hypertension type: essential hypertension Qualified Code(s): I10 - Essential (primary) hypertension
[2020-05-02] MEDS: FLUTICASONE PROPIONATE NA SPR 16 GM BTL SCH (18:05)
[2020-05-02] MEDS: predniSONE 20 MG TAB PO SCH (18:05)
--- NOTE | 2020-05-02 19:34 | XRay Report ---
XR chest 2V PA/lateral HISTORY: 85 years-old Male dyspnea, COPD, ?LLL pneumonia? Acute shortness of breath with COPD COMPARISON: Chest radiograph and CT abdomen pelvis 04/26/2020 TECHNIQUE: AP and lateral views of the chest FINDINGS: Cardiac silhouette is enlarged. Calcified plaque the thoracic aortic arch. Emphysema with chronic fib rosis. Trace pleural effusions redemonstrated along with mild bibasilar opacities. Degenerative granados es of the shoulders and spine with multiple prostate compression deformities. IMPRESSION: 1. Emphysema with chronic fibrosis. 2. Cardiomegaly. 3. Trace pleural effusions with minimal bibasilar opacities redemonstrated suggestive of atelectasis versus pneumonitis. ACT 112: Negative or not required by law. The above report was generated using voice recognition software. It may contain grammatical, syntax o r spelling errors. Electronically signed by: Lul Rendon M.D. 05/02/2020 7:33 PM
[2020-05-02] MEDS: PRAVASTATIN SOD 20 MG TAB PO SCH (20:34)
[2020-05-02] MEDS: guaiFENesin 600 MG TABCR PO SCH (20:35)
[2020-05-02] MEDS: OXYCODONE HCL IR 5 MG TAB (IMMEDIATE RELEASE) PO SCH (20:35)
[2020-05-02] MEDS: MELATONIN 3 MG TAB PO SCH (21:57)
[2020-05-03 06:32] LABS: BUN Creatinine Ratio 17.1 (10-20); Calcium 9.2 mg/dl (8.5-10.1); Creatinine Clr Calc Pharmacy 25.6 ml/min; Est GFR (African American) 33.1; Est GFR (Non-African American) 28.5; Potassium 5.3 mmol/L (3.5-5.1)
[2020-05-03] MEDS: SODIUM CHLOR 7% 4 ML NEB INH SCH ×2 (07:06→19:05)
[2020-05-03] MEDS: ALBUT/IPRATROP 3MG/0.5MG NEB 3 ML VIAL INH SCH ×4 (07:06→19:04)
[2020-05-03] MEDS: FLUTICASONE/VILANTEROL 100/25MCG 14 PUFFS/INHALER INH SCH (08:10)
[2020-05-03] MEDS: DOCUSATE SODIUM 100 MG CAP PO SCH ×2 (08:12→20:16)
[2020-05-03] MEDS: APIXABAN 2.5 MG TAB PO SCH ×2 (08:12→20:17)
[2020-05-03] MEDS: FLUCONAZOLE 100 MG TAB PO SCH (08:12)
[2020-05-03] MEDS: FLUTICASONE PROPIONATE NA SPR 16 GM BTL SCH (08:13)
[2020-05-03] MEDS: UMECLIDINIUM BROMIDE 62.5MCG/BLISTER 7 PUFFS/INHALER INH SCH (08:21)
[2020-05-03] MEDS: FOLIC ACID 400 MCG TAB PO SCH (08:21)
[2020-05-03] MEDS: guaiFENesin 600 MG TABCR PO SCH ×2 (08:22→20:17)
[2020-05-03] MEDS: POTASSIUM CHLORIDE 10 MEQ TABCR PO SCH (08:22)
[2020-05-03] MEDS: predniSONE 20 MG TAB PO SCH (08:22)
[2020-05-03] MEDS: MONTELUKAST SODIUM 10 MG TABLET PO SCH (08:23)
[2020-05-03] MEDS: CHOLECALCIFEROL 1,000 UNITS 25 MCG TAB PO SCH (08:23)
[2020-05-03] MEDS: METOPROLOL SUCC 25MG EXT REL TAB PO SCH (08:23)
[2020-05-03] MEDS: CYANOCOBALAMIN 500 MCG TABLET (VITAMIN B-12) PO SCH (08:23)
[2020-05-03] MEDS: POLYETHYLENE (MIRALAX) 17 GM PACK PO SCH (09:11)
[2020-05-03] MEDS: CEFEPIME 2,000 MG in SYRINGE 7.5 ML IV SCH (09:12)
[2020-05-03] MEDS ORDERED: SODIUM POLYSTYRENE SULFONATE 15G/60ML SUSP PO ONE (09:30)
--- NOTE | 2020-05-03 12:19 | Hospitalist Progress Note ---
Date of Service May 03, 2020 Assessment & Plan (1) Hyperkalemia: 2nd to mild MOHAN in setting of CKD. kayexalate 15gm x 1 -- bmp am. (2) Iron deficiency anemia: strongly consider venofer replacement x 3 doses. cbc am. fecal occult blood. (3) Catheter-associated urinary tract infection: 2nd pseudomonas. also with ramonita albicans earlier this month. chronic tong -- exchanged in the ED this admission. US guided IV in plan. planning 14-day course of IV cefepime. day #5 of such. continue Diflucan PO for 7 more days. (4) Fecal impaction: resolved. cont bowel maintenance. moving bowels well. (5) COPD (chronic obstructive pulmonary disease): now with exacerbation cont prednisone 40mg daily duonebs qid bumex x 1 today (6) Weakness: acute/chronic minimal activity at home, but now 2-person assist for transfers and standing I called and spoke with daughter who lives locally - she agrees patient can't come home if he can't stand and transfer to commode daughter to come in tomorrow am recommended she observe PT session with patient this will determine disposition (7) Anticoagulant long-term use: continue eliquis (8) Atrial fibrillation: PAF in NSR this admission eliquis beta alan (9) Chronic respiratory failure with hypoxia: 2.5 l at baseline continuously due to COPD (10) Chronic kidney disease, stage 3: baseline Cr 1.6 to 1.8 now with mild MOHAN - repeat BMP am (11) BPH (benign prostatic hyperplasia): not on meds for such BPH cause of chronic tong use?? (12) Hypertension: cont home meds (13) DVT prophylaxis: eliquis ideally pt goes to SNF for rehab refusing adamantly however social work aware of dispo issues see above re: discussion with pt's daughterAlly Admission and Anticipated Discharge Date Admission Date: April 26, 2020 Subjective having good bowel movements breathing somewhat worse than yesterday refusing to get OOB still despite encouragement by nursing staff and therapy no cough eating well no other events social work has not been able to connect with daughter who lives locally to d iscuss disposition Review of Systems Constitutional: no fever Respiratory: + wheezing; no sputum production Cardiovascular: no chest pain, no orthopnea and no paroxysmal nocturnal dyspnea Gastrointestinal: no abdominal pain, no nausea, no vomiting and no constipation Physical Exam Constitutional: no acute distress and no altered mental status ENMT: external ear and nose normal, oropharynx normal Respiratory: Auscultation: + crackles (bases b/l ) and + wheezes (b/l ) Cardiovascular: Rate/Rhythm: regular rate and regular rhythm Heart Sounds: normal S1 and normal S2; no murmur Vessels: + JVD, posterior tibial pulses present and dorsalis pedis pulses present Extremities: no edema Gastrointestinal (Abdomen): Inspection/Auscultation: + abdomen distended (mild - no change from yesterday's exam) and normal bowel sounds Percussion/Palpation: abdomen soft; abdomen nontender and no guarding Psychiatric: A+Ox3, euthymic affect Results & Data Results & Data ([facility]) Vital Signs (Past 12 Hours) Vital Signs Temp Pulse Pulse Resp BP Pulse Ox 05/03/20 11:46 98 H 18 94 05/03/20 07:30 36.6 C 96 H 16 143/82 H 97 05/03/20 07:08 86 18 96 Laboratory Results Laboratory Results - last 24 hr 05/03/20 05:38 Sodium 138 Potassium 5.3 H D Chloride 107 Carbon Dioxide 24 Anion Gap 7.0 BUN 35 H Creatinine 2.06 H Est Cr Clr Drug Dosing 25.6 Est GFR ( Amer) 33.1 Est GFR (Non-Af Amer) 28.5 BUN/Creatinine Ratio 17.1 Glucose 128 H Calcium 9.2 PG Care Time/CCT Total # of Minutes Spent Total Time Spent with Patient: Total time spent is greater than 50% in coor dination of care (as documented) at patient's floor/unit and/or counseling patient: Coding Level of Care Code 82796 Subseq Hosp Care Lvl 3 Diagnoses Hyperkalemia E87.5 Iron deficiency anemia D50.9 Iron deficiency anemia type: unspecified iron deficiency Catheter-associated urinary tract infection T83.511A; N39.0 Encounter type: initial encounter Indwelling urinary catheter type: unspecified Fecal impaction K56.41 COPD (chronic obstructive pulmonary disease) J44.9 Weakness R53.1 Anticoagulant long-term use Z79.01 Atrial fibrillation I48.2 Atrial fibrillation type: chronic Chronic respiratory failure with hypoxia J96.11 Chronic kidney disease, stage 3 N18.3 BPH (benign prostatic hyperplasia) N40.1; R33.8 Lower urinary tract symptom detail: urinary retention Lower urinary tract symptom presence: symptoms present Hypertension I10 Hypertension type: essential hypertension DVT prophylaxis Z29.9 (1) BPH (benign prostatic hyperplasia) Lower urinary tract symptom detail: urinary retention Lower urinary tract symptom presence: symptoms present Qualified Code(s): N40.1 - Benign prostatic hyperplasia with lower urinary tract symptoms; R33.8 - Other retention of urine (2) Catheter-associated urinary tract infection Encounter type: initial encounter Indwelling urinary catheter type: unspecified Qualified Code(s): T83.511A - Infection and inflammatory reaction due to indwelling urethral catheter, initial encounter; N39.0 - Urinary tract infection, site not specified (3) Atrial fibrillation Atrial fibrillation type: chronic Qualified Code(s): I48.2 - Chronic atrial fibrillation (4) Hypertension Hypertension type: essential hypertension Qualified Code(s): I10 - Essential (primary) hypertension (5) Iron deficiency anemia Iron deficiency anemia type: unspecified iron deficiency Qualified Code(s): D50.9 - Iron deficiency anemia, unspecified
[2020-05-03] MEDS ORDERED: BUMETANIDE 1 MG in SYRINGE 0 ML IV ONE (12:45)
[2020-05-03] MEDS: ALUMINUM/MAGNESIUM SUSP 30 ML UDC PO PRN (14:21)
[2020-05-03] MEDS: ACETAMINOPHEN 325 MG TAB PO PRN ×2 (17:26→21:30)
[2020-05-03] MEDS: PRAVASTATIN SOD 20 MG TAB PO SCH (20:17)
[2020-05-03] MEDS: MELATONIN 3 MG TAB PO SCH (21:29)
[2020-05-03] MEDS: OXYCODONE HCL IR 5 MG TAB (IMMEDIATE RELEASE) PO SCH (21:29)
[2020-05-04 06:53] LABS: BUN Creatinine Ratio 19.1 (10-20); Calcium 8.5 mg/dl (8.5-10.1); Creatinine Clr Calc Pharmacy 24.7 ml/min; Est GFR (African American) 31.6; Est GFR (Non-African American) 27.2; Potassium 4.4 mmol/L (3.5-5.1)
[2020-05-04] MEDS: SODIUM CHLOR 7% 4 ML NEB INH SCH ×2 (07:21→19:17)
[2020-05-04] MEDS: ALBUT/IPRATROP 3MG/0.5MG NEB 3 ML VIAL INH SCH ×4 (07:21→19:17)
[2020-05-04] MEDS: DOCUSATE SODIUM 100 MG CAP PO SCH ×2 (08:26→21:33)
[2020-05-04] MEDS: FLUTICASONE/VILANTEROL 100/25MCG 14 PUFFS/INHALER INH SCH (08:26)
[2020-05-04] MEDS: FOLIC ACID 400 MCG TAB PO SCH (08:27)
[2020-05-04] MEDS: FLUCONAZOLE 100 MG TAB PO SCH (08:27)
[2020-05-04] MEDS: FLUTICASONE PROPIONATE NA SPR 16 GM BTL SCH (08:27)
[2020-05-04] MEDS: APIXABAN 2.5 MG TAB PO SCH ×2 (08:27→21:33)
[2020-05-04] MEDS: UMECLIDINIUM BROMIDE 62.5MCG/BLISTER 7 PUFFS/INHALER INH SCH (08:27)
[2020-05-04] MEDS: METOPROLOL SUCC 25MG EXT REL TAB PO SCH (08:28)
[2020-05-04] MEDS: CEFEPIME 2,000 MG in SYRINGE 7.5 ML IV SCH (08:28)
[2020-05-04] MEDS: POLYETHYLENE (MIRALAX) 17 GM PACK PO SCH (08:28)
[2020-05-04] MEDS: predniSONE 20 MG TAB PO SCH (08:29)
[2020-05-04] MEDS: guaiFENesin 600 MG TABCR PO SCH ×2 (08:29→21:32)
[2020-05-04] MEDS: MONTELUKAST SODIUM 10 MG TABLET PO SCH (08:29)
[2020-05-04] MEDS: CYANOCOBALAMIN 500 MCG TABLET (VITAMIN B-12) PO SCH (08:30)
[2020-05-04] MEDS: CHOLECALCIFEROL 1,000 UNITS 25 MCG TAB PO SCH (08:30)
[2020-05-04] MEDS ORDERED: IRON SUCROSE 200 MG in 0.9 % SODIUM CHLORIDE 100 ML IV ONE (09:30)
[2020-05-04] MEDS: PANTOprazole 40 MG TAB PO SCH (10:49)
[2020-05-04] MEDS: ACETAMINOPHEN 325 MG TAB PO PRN ×2 (15:34→22:18)
--- NOTE | 2020-05-04 19:08 | Hospitalist Progress Note ---
Date of Service May 04, 2020 Assessment & Plan (1) Hyperkalemia: 2nd to mild MOHAN in setting of CKD. kayexalate given - now resolved. K 4.4 today. (2) Iron deficiency anemia: s/p venofer today 200mg x 1. repeat tomorrow. Hb 7.9 - mild drop from prior but no overt bleeding. send fecal occult blood. repeat CBC am. (3) Catheter-associated urinary tract infection: 2nd pseudomonas. also with ramontia albicans earlier this month. chronic tong -- exchanged in the ED this admission. US guided IV in plan. planning 14-day course of IV cefepime. day #6 of such. continue Diflucan PO for 6 more days. (4) Fecal impaction: resolved. cont bowel maintenance. moving bowels well. (5) COPD (chronic obstructive pulmonary disease): now with exacerbation cont prednisone but wean to 30mg daily duonebs qid bumex yesterday led to further rise in BUN and Cr; no additional diuresis today. (6) Weakness: acute/chronic minimal activity at home, but now 2-person assist for transfers and standing daughter observed PT session with patient and agrees rehab is needed referral placed to [facility] (7) Anticoagulant long-term use: continue eliquis (8) Atrial fibrillation: PAF in NSR this admission eliquis beta alan (9) Chronic respiratory failure with hypoxia: 2.5 l at baseline continuously due to COPD (10) Chronic kidney disease, stage 3: baseline Cr 1.6 to 1.8 now with mild MOHAN - repeat BMP am (11) BPH (benign prostatic hyperplasia): not on meds for such BPH cause of chronic tong use?? apparently had what sounds like TURP several years ago and since has had chronic tong (12) Hypertension: cont home meds (13) Pressure ulcer of unspecified buttock, stage 2: b/l buttocks -- POA (present on admission). appreciate wound care nurse consultation. cont local barrier methods, frequent turning, etc. OOB to chair has been encouraged by all staff members. (14) DVT prophylaxis: eliquis patient/daughter agreeable to [facility] referral for rehab Admission and Anticipated Discharge Date Admission Date: April 26, 2020 Subjective during my visit daughter was at bedside he states that with moving he gets lightheaded/dizzy and dyspneic he has now been in the bed since minimum last Friday, perhaps longer, due to him declining getting OOB to chair or working with PT he blames not wanting to get OOB due to dizziness and dyspnea he overall feels ok today denies any melena or BRBPR eating well passing plenty of flatus Review of Systems Constitutional: no fever, no chills and no anorexia Respiratory: + cough; no hemoptysis and no wheezing Cardiovascular: no chest pain Gastrointestinal: no abdominal pain Physical Exam Constitutional: no acute distress and no altered mental status ENMT: external ear and nose normal, oropharynx normal Respiratory: normal respiratory effort, lungs clear to auscultation no respiratory distress Auscultation: + crackles (bases - minimal) and + wheezes (Resolved tod) Cardiovascular: Rate/Rhythm: regular rate and regular rhythm Heart Sounds: normal S1 and normal S2; no murmur Vessels: posterior tibial pulses present and dorsalis pedis pulses present; no JVD Extremities: no edema Gastrointestinal (Abdomen): Inspection/Auscultation: + abdomen distended (mild - no change from yesterday's exam) and normal bowel sounds Percussion/Palpation: abdomen soft; abdomen nontender and no guarding Psychiatric: A+Ox3, euthymic affect Results & Data Results & Data ([facility]) Vital Signs (Past 12 Hours) Vital Signs Temp Pulse Pulse Resp BP Pulse Ox 05/04/20 16:04 73 18 92 05/04/20 15:29 36.5 C 91 H 18 137/77 90 05/04/20 11:30 73 18 95 05/04/20 07:25 36.4 C L 80 16 144/74 H 94 05/04/20 07:23 76 18 97 Laboratory Results Laboratory Results - last 24 hr 05/04/20 05/04/20 05:35 05:35 Hgb 7.9 L Sodium 140 Potassium 4.4 D Chloride 109 H Carbon Dioxide 26 Anion Gap 5.0 BUN 41 H Creatinine 2.14 H Est Cr Clr Drug Dosing 24.7 Est GFR ( Amer) 31.6 Est GFR (Non-Af Amer) 27.2 BUN/Creatinine Ratio 19.1 Glucose 115 H Calcium 8.5 PG Care Time/CCT Total # of Minutes Spent Total Time Spent with Patient: Total time spent is greater than 50% in coordination of care (as documented) at patient's floor/unit and/or counseling patient: Coding Level of Care Code 57079 Subseq Hosp Care Lvl 2 Diagnoses Hyperkalemia E87.5 Iron deficiency anemia D50.9 Iron deficiency anemia type: unspecified iron deficiency Catheter-associated urinary tract infection T83.511A; N39.0 Encounter type: initial encounter Indwelling urinary catheter type: unspecified Fecal impaction K56.41 COPD (chronic obstructive pulmonary disease) J44.9 Weakness R53.1 Anticoagulant long-term use Z79.01 Atrial fibrillation I48.2 Atrial fibrillation type: chronic Chronic respiratory failure with hypoxia J96.11 Chronic kidney disease, stage 3 N18.3 BPH (benign prostatic hyperplasia) N40.1; R33.8 Lower urinary tract symptom detail: urinary retention Lower urinary tract symptom presence: symptoms present Hypertension I10 Hypertension type: essential hypertension Pressure ulcer of unspecified buttock, stage 2 L89.302 Laterality: unspecified laterality DVT prophylaxis Z29.9 (1) BPH (benign prostatic hyperplasia) Lower urinary tract symptom detail: urinary retention Lower urinary tract symptom presence: symptoms present Qualified Code(s): N40.1 - Benign prostatic hyperplasia with lower urinary tract symptoms; R33.8 - Other retention of urine (2) Pressure ulcer of unspecified buttock, stage 2 Laterality: unspecified laterality Qualified Code(s): L89.302 - Pressure ulcer of unspecified buttock, stage 2 (3) Catheter-associated urinary tract infection Encounter type: initial encounter Indwelling urinary catheter type: unspecified Qualified Code(s): T83.511A - Infection and inflammatory reaction due to indwelling urethral catheter, initial encounter; N39.0 - Urinary tract infection, site not specified (4) Atrial fibrillation Atrial fibrillation type: chronic Qualified Code(s): I48.2 - Chronic atrial f ibrillation (5) Iron deficiency anemia Iron deficiency anemia type: unspecified iron deficiency Qualified Code(s): D50.9 - Iron deficiency anemia, unspecified (6) Hypertension Hypertension type: essential hypertension Qualified Code(s): I10 - Essential (primary) hypertension
[2020-05-04] MEDS ORDERED: ALBUT/IPRATROP 3MG/0.5MG NEB 3 ML VIAL INH PRN (20:15)
[2020-05-04] MEDS: PRAVASTATIN SOD 20 MG TAB PO SCH (21:33)
[2020-05-04] MEDS: OXYCODONE HCL IR 5 MG TAB (IMMEDIATE RELEASE) PO SCH (21:33)
[2020-05-04] MEDS: MELATONIN 3 MG TAB PO SCH (21:33)
[2020-05-04] MEDS: ALBUT/IPRATROP 3MG/0.5MG NEB 3 ML VIAL NEB SCH (22:54)
[2020-05-05] MEDS: ALBUT/IPRATROP 3MG/0.5MG NEB 3 ML VIAL NEB SCH ×6 (03:27→23:21)
[2020-05-05 06:35] LABS: BUN Creatinine Ratio 18.7 (10-20); Calcium 8.5 mg/dl (8.5-10.1); Creatinine Clr Calc Pharmacy 24.7 ml/min; Est GFR (African American) 31.6; Est GFR (Non-African American) 27.2
[2020-05-05] MEDS: SODIUM CHLOR 7% 4 ML NEB INH SCH ×2 (07:26→19:51)
[2020-05-05] MEDS: FLUTICASONE/VILANTEROL 100/25MCG 14 PUFFS/INHALER INH SCH (08:24)
[2020-05-05] MEDS: UMECLIDINIUM BROMIDE 62.5MCG/BLISTER 7 PUFFS/INHALER INH SCH (08:24)
[2020-05-05] MEDS: predniSONE 10 MG TABLET PO SCH (08:25)
[2020-05-05] MEDS: METOPROLOL SUCC 25MG EXT REL TAB PO SCH (08:25)
[2020-05-05] MEDS: PANTOprazole 40 MG TAB PO SCH (08:26)
[2020-05-05] MEDS: FOLIC ACID 400 MCG TAB PO SCH (08:26)
[2020-05-05] MEDS: CYANOCOBALAMIN 500 MCG TABLET (VITAMIN B-12) PO SCH (08:27)
[2020-05-05] MEDS: FLUCONAZOLE 100 MG TAB PO SCH (08:27)
[2020-05-05] MEDS: CHOLECALCIFEROL 1,000 UNITS 25 MCG TAB PO SCH (08:27)
[2020-05-05] MEDS: APIXABAN 2.5 MG TAB PO SCH ×2 (08:28→21:23)
[2020-05-05] MEDS: guaiFENesin 600 MG TABCR PO SCH ×2 (08:28→21:24)
[2020-05-05] MEDS: MONTELUKAST SODIUM 10 MG TABLET PO SCH (08:28)
[2020-05-05] MEDS: FLUTICASONE PROPIONATE NA SPR 16 GM BTL SCH (08:29)
[2020-05-05] MEDS ORDERED: IRON SUCROSE 200 MG in 0.9 % SODIUM CHLORIDE 100 ML IV ONE (08:30)
[2020-05-05] MEDS: CEFEPIME 2,000 MG in SYRINGE 7.5 ML IV SCH (08:51)
[2020-05-05] MEDS: DOCUSATE SODIUM 100 MG CAP PO SCH ×2 (09:01→21:23)
[2020-05-05] MEDS: POLYETHYLENE (MIRALAX) 17 GM PACK PO SCH (09:02)
[2020-05-05] MEDS: ACETAMINOPHEN 325 MG TAB PO PRN ×2 (11:28→21:23)
[2020-05-05] MEDS ORDERED: BUMETANIDE 0.5 MG in SYRINGE 0 ML IV ONE (12:45)
[2020-05-05] MEDS: ALUMINUM/MAGNESIUM SUSP 30 ML UDC PO PRN (19:35)
[2020-05-05] MEDS: PRAVASTATIN SOD 20 MG TAB PO SCH (21:23)
[2020-05-05] MEDS: OXYCODONE HCL IR 5 MG TAB (IMMEDIATE RELEASE) PO SCH (21:23)
[2020-05-05] MEDS: MELATONIN 3 MG TAB PO SCH (21:23)
--- NOTE | 2020-05-05 22:09 | Hospitalist Progress Note ---
Date of Service May 05, 2020 Assessment & Plan (1) Catheter-associated urinary tract infection: 2nd pseudomonas. also with ramonita albicans earlier this month. chronic tong -- exchanged in the ED this admission. US guided IV in plan. planning 14-day course of IV cefepime. day #7 of such. continue Diflucan PO for 5 more days. (2) COPD (chronic obstructive pulmonary disease): with exacerbation cont prednisone 30mg daily duonebs qid cont pulmonary toilet (3) Hyperkalemia: 2nd to mild MOHAN in setting of CKD. resolved. (4) Iron deficiency anemia: s/p venofer today 200mg x 1. will repeat 200mg again tomorrow. Hb 7.9. send fecal occult blood. (5) Fecal impaction: resolved. cont bowel maintenance. moving bowels well. (6) Weakness: acute/chronic minimal activity at home, but now 2-person assist for transfers and standing daughter observed PT session with patient and agrees rehab is needed referral placed to [facility] (7) Anticoagulant long-term use: continue eliquis (8) Atrial fibrillation: PAF in NSR this admission eliquis beta alan (9) Chronic respiratory failure with hypoxia: 2.5 l at baseline continuously due to COPD no increase in O2 requirements even w/ exacerbation (10) Chronic kidney disease, stage 3: baseline Cr 1.6 to 1.8 now with mild MOHAN - repeat BMP am (11) BPH (benign prostatic hyperplasia): not on meds for such BPH cause of chronic tong use?? apparently had what sounds like TURP several years ago and since has had chronic tong (12) Hypertension: cont home meds (13) Pressure ulcer of unspecified buttock, stage 2: b/l buttocks -- POA (present on admission). appreciate wound care nurse consultation. cont local barrier methods, frequent turning, etc. OOB to chair has been encouraged by all staff members. still refusing. (14) DVT prophylaxis: lisbethis patient/daughter agreeable to [facility] referral for rehab he is not happy about this of course but he is unsafe to return home unsupervised Admission and Anticipated Discharge Date Admission Date: April 26, 2020 Subjective patient very upset at me, case fitter and daughter that we are "making him go to rehab." this makes him very anxious which then causes his breathing to be worse. he denies any cough, but has wheezing and ALLEN. passing flatus. eating well. did not get OOB today. Review of Systems Constitutional: + fatigue; no fever, no chills and no anorexia Respiratory: + dyspnea on exertion and + wheezing; no cough and no sputum production Cardiovascular: no chest pain Gastrointestinal: no abdominal pain, no nausea and no vomiting Physical Exam Constitutional: no acute distress and no altered mental status ENMT: external ear and nose normal, oropharynx normal Respiratory: no respiratory distress Auscultation: + crackles (bases ) and + wheezes (b/l ) Cardiovascular: Rate/Rhythm: regular rate and regular rhythm Heart Sounds: normal S1 and normal S2; no murmur Vessels: posterior tibial pulses present and dorsalis pedis pulses present; no JVD Extremities: no edema Gastrointestinal (Abdomen): Inspection/Auscultation: + abdomen distended (mild - no change from yesterday's exam) and normal bowel sounds Percussion/Palpation: abdomen soft; abdomen nontender and no guarding Psychiatric: Orientation: alert and oriented x 3 Affect: + anxious affect Results & Data Results & Data ([facility]) Vital Signs (Past 12 Hours) Vital Signs Temp Pulse Pulse Pulse Resp BP Pulse Ox 05/05/20 19:54 81 20 96 05/05/20 15:31 36.3 C L 100 H 20 146/75 H 92 05/05/20 15:07 85 98 H 18 96 05/05/20 12:21 81 18 96 Laboratory Results Laboratory Results - last 24 hr 05/05/20 05/05/20 05:28 05:28 Hgb 7.9 L Sodium 141 Potassium 4.0 Chloride 109 H Carbon Dioxide 25 Anion Gap 7.0 BUN 40 H Creatinine 2.14 H Est Cr Clr Drug Dosing 24.7 Est GFR ( Amer) 31.6 Est GFR (Non-Af Amer) 27.2 BUN/Creatinine Ratio 18.7 Glucose 95 Calcium 8.5 PG Care Time/CCT Total # of Minutes Spent Total Time Spent with Patient: Total time spent is greater than 50% in coordination of care (as documented) at patient's floor/unit and/or counseling patient: Coding Level of Care Code 28442 Subseq Hosp Care Lvl 2 Diagnoses Catheter-associated urinary tract infection T83.511A; N39.0 Encounter type: initial encounter Indwelling urinary catheter type: unspecified COPD (chronic obstructive pulmonary disease) J44.9 Hyperkalemia E87.5 Iron deficiency anemia D50.9 Iron deficiency anemia type: unspecified iron deficiency Fecal impaction K56.41 Weakness R53.1 Anticoagulant long-term use Z79.01 Atrial fibrillation I48.2 Atrial fibrillation type: chronic Chronic respiratory failure with hypoxia J96.11 Chronic kidney disease, stage 3 N18.3 BPH (benign prostatic hyperplasia) N40.1; R33.8 Lower urinary tract symptom detail: urinary retention Lower urinary tract symptom presence: symptoms present Hypertension I10 Hypertension type: essential hypertension Pressure ulcer of unspecified buttock, stage 2 L89.302 Laterality: unspecified laterality DVT prophylaxis Z29.9 (1) BPH (benign prostatic hyperplasia) Lower urinary tract symptom detail: urinary retention Lower urinary tract symptom presence: symptoms present Qualified Code(s): N40.1 - Benign prostatic hyperplasia with lower urinary tract symptoms; R33.8 - Other retention of urine (2) Pressure ulcer of unspecified buttock, stage 2 Laterality: unspecified laterality Qualified Code(s): L89.302 - Pressure ulcer of unspecified buttock, stage 2 (3) Catheter-associated urinary tract infection Encounter type: initial encounter Indwelling urinary catheter type: unspecified Qualified Code(s): T83.511A - Infection and inflammatory reaction due to indwelling urethral catheter, initial encounter; N39.0 - Urinary tract infection, site not specified (4) Atrial fibrillation Atrial fibrillation type: chronic Qualified Code(s): I48.2 - Chronic atrial fibrillation (5) Iron deficiency anemia Iron deficiency anemia type: unspecified iron deficiency Qualified Code(s): D50.9 - Iron deficiency anemia, unspecified (6) Hypertension Hypertension type: essential hypertension Qualified Code(s): I10 - Essential (primary) hypertension
[2020-05-06] MEDS: ALBUT/IPRATROP 3MG/0.5MG NEB 3 ML VIAL NEB SCH ×6 (03:42→23:11)
[2020-05-06] MEDS: SODIUM CHLOR 7% 4 ML NEB INH SCH ×2 (06:58→19:19)
[2020-05-06 07:01] LABS: BUN Creatinine Ratio 19.2 (10-20); Calcium 8.7 mg/dl (8.5-10.1); Creatinine Clr Calc Pharmacy 29.2 ml/min; Est GFR (African American) 38.6; Est GFR (Non-African American) 33.3; Potassium 4.2 mmol/L (3.5-5.1)
[2020-05-06] MEDS: CEFEPIME 2,000 MG in SYRINGE 7.5 ML IV SCH (08:28)
[2020-05-06] MEDS: FLUTICASONE PROPIONATE NA SPR 16 GM BTL SCH (08:28)
[2020-05-06] MEDS: UMECLIDINIUM BROMIDE 62.5MCG/BLISTER 7 PUFFS/INHALER INH SCH (08:29)
[2020-05-06] MEDS: MONTELUKAST SODIUM 10 MG TABLET PO SCH (08:29)
[2020-05-06] MEDS: FLUCONAZOLE 100 MG TAB PO SCH (08:29)
[2020-05-06] MEDS: CYANOCOBALAMIN 500 MCG TABLET (VITAMIN B-12) PO SCH (08:29)
[2020-05-06] MEDS: FLUTICASONE/VILANTEROL 100/25MCG 14 PUFFS/INHALER INH SCH (08:29)
[2020-05-06] MEDS: FOLIC ACID 400 MCG TAB PO SCH (08:30)
[2020-05-06] MEDS: APIXABAN 2.5 MG TAB PO SCH ×2 (08:30→20:31)
[2020-05-06] MEDS: METOPROLOL SUCC 25MG EXT REL TAB PO SCH (08:30)
[2020-05-06] MEDS: guaiFENesin 600 MG TABCR PO SCH ×2 (08:30→20:33)
[2020-05-06] MEDS ORDERED: IRON SUCROSE 200 MG in 0.9 % SODIUM CHLORIDE 100 ML IV ONE (08:30)
[2020-05-06] MEDS: predniSONE 10 MG TABLET PO SCH (08:30)
[2020-05-06] MEDS: PANTOprazole 40 MG TAB PO SCH (08:31)
[2020-05-06] MEDS: CHOLECALCIFEROL 1,000 UNITS 25 MCG TAB PO SCH (08:31)
[2020-05-06] MEDS: POLYETHYLENE (MIRALAX) 17 GM PACK PO SCH (08:33)
[2020-05-06] MEDS: DOCUSATE SODIUM 100 MG CAP PO SCH ×2 (08:33→20:31)
[2020-05-06] MEDS: ACETAMINOPHEN 325 MG TAB PO PRN ×3 (09:28→23:59)
[2020-05-06] MEDS: ALUMINUM/MAGNESIUM SUSP 30 ML UDC PO PRN (15:51)
[2020-05-06] MEDS: PRAVASTATIN SOD 20 MG TAB PO SCH (20:33)
[2020-05-06] MEDS: OXYCODONE HCL IR 5 MG TAB (IMMEDIATE RELEASE) PO SCH (20:34)
[2020-05-06] MEDS: MELATONIN 3 MG TAB PO SCH (20:36)
--- NOTE | 2020-05-06 21:35 | Hospitalist Progress Note ---
Date of Service May 06, 2020 Assessment & Plan (1) Catheter-associated urinary tract infection: 2nd pseudomonas. also with ramonita albicans earlier this month. chronic tong -- exchanged in the ED this admission. US guided IV in place; con 14-day course of IV cefepime. day #8 of such. continue Diflucan PO for 4 more days. (2) COPD (chronic obstructive pulmonary disease): with exacerbation cont prednisone 30mg daily duonebs qid cont pulmonary toilet anxiety makes his symptoms worse - trial of buspar. (3) Hyperkalemia: 2nd to mild MOHAN in setting of CKD. resolved. (4) Iron deficiency anemia: s/p venofer today 200mg. this was 2nd dose of such. will repeat 200mg again tomorrow. Hb stable. fecal occult negative. (5) Fecal impaction: resolved. cont bowel maintenance. moving bowels well. (6) Weakness: acute/chronic minimal activity at home, but now 2-person assist for transfers and standing daughter observed PT session with patient and agrees rehab is needed referral placed to [facility]; [facility] pending (7) Anticoagulant long-term use: continue eliquis (8) Atrial fibrillation: PAF in NSR this admission eliquis beta alan (9) Chronic respiratory failure with hypoxia: 2.5 l at baseline continuously due to COPD no increase in O2 requirements even w/ exacerbation (10) Chronic kidney disease, stage 3: baseline Cr 1.6 to 1.8 now with mild MOHAN - resolved BMP am (11) BPH (benign prostatic hyperplasia): not on meds for such BPH cause of chronic tong use?? apparently had what sounds like TURP several years ago and since has had chronic tong (12) Hypertension: cont home meds (13) Pressure ulcer of unspecified buttock, stage 2: b/l buttocks -- POA (present on admission). appreciate wound care nurse consultation cont local barrier methods. (14) Anxiety: trial of buspar 5mg x 1 if it helps, and no side effects, the schedule BID (15) DVT prophylaxis: eliquis awaiting tonja for [facility] rehab stay daughter updated by phone today Admission and Anticipated Discharge Date Admission Date: April 26, 2020 Subjective patient had overall good day. eating well. had 2 BMs. breathing good today. still had not been out of bed. asks about anxiety medication and "something he could take every day" for it. tolerated venofer infusion this am. Review of Systems Constitutional: no fever Respiratory: + cough and + dyspnea on exertion Cardiovascular: no chest pain and no dyspnea at rest Gastrointestinal: + bloating; no abdominal pain, no nausea and no vomiting Physical Exam Constitutional: no acute distress and no altered mental status ENMT: external ear and nose normal, oropharynx normal Respiratory: no respiratory distress Auscultation: + wheezes (b/l but minimal today); no crackles Cardiovascular: Rate/Rhythm: regular rate and regular rhythm Heart Sounds: normal S1 and normal S2; no murmur Vessels: posterior tibial pulses present and dorsalis pedis pulses present; no JVD Extremities: no edema Gastrointestinal (Abdomen): Inspection/Auscultation: + abdomen distended (mild - no change from yesterday's exam) and normal bowel sounds Percussion/Palpation: abdomen soft; abdomen nontender and no guarding Psychiatric: Orientation: alert and oriented x 3 Affect: + anxious affect Results & Data Results & Data ([facility]) Vital Signs (Past 12 Hours) Vital Signs Temp Pulse Pulse Pulse Resp BP Pulse Ox 05/06/20 19:34 88 16 95 05/06/20 19:20 90 16 95 05/06/20 16:04 37.2 C 89 16 146/75 H 90 05/06/20 15:13 88 18 97 05/06/20 11:02 90 18 97 Laboratory Results Laboratory Results - last 24 hr 05/06/20 05/06/20 05:21 11:20 Sodium 142 Potassium 4.2 Chloride 112 H Carbon Dioxide 25 Anion Gap 5.0 BUN 35 H Creatinine 1.81 H D Est Cr Clr Drug Dosing 29.2 Est GFR ( Amer) 38.6 Est GFR (Non-Af Amer) 33.3 BUN/Creatinine Ratio 19.2 Glucose 81 Calcium 8.7 Stool Occult Bld Scrn Negative PG Care Time/CCT Total # of Minutes Spent Total Time Spent with Patient: Total time spent is greater than 50% in coordination of care (as documented) at patient's floor/unit and/or counseling patient: Coding Level of Care Code 14970 Subseq Hosp Care Lvl 2 Diagnoses Catheter-associated urinary tract infection T83.511A; N39.0 Encounter type: initial encounter Indwelling urinary catheter type: unspecified COPD (chronic obstructive pulmonary disease) J44.9 Hyperkalemia E87.5 Iron deficiency anemia D50.9 Iron deficiency anemia type: unspecified iron deficiency Fecal impaction K56.41 Weakness R53.1 Anticoagulant long-term use Z79.01 Atrial fibrillation I48.2 Atrial fibrillation type: chronic Chronic respiratory failure with hypoxia J96.11 Chronic kidney disease, stage 3 N18.3 BPH (benign prostatic hyperplasia) N40.1; R33.8 Lower urinary tract symptom detail: urinary retention Lower urinary tract symptom presence: symptoms present Hypertension I10 Hypertension type: essential hypertension Pressure ulcer of unspecified buttock, stage 2 L89.302 Laterality: unspecified laterality Anxiety F41.9 DVT prophylaxis Z29.9 (1) BPH (benign prostatic hyperplasia) Lower urinary tract symptom detail: urinary retention Lower urinary tract symptom presence: symptoms present Qualified Code(s): N40.1 - Benign prostatic hyperplasia with lower urinary tract symptoms; R33.8 - Other retention of urine (2) Pressure ulcer of unspecified buttock, stage 2 Laterality: unspecified laterality Qualified Code(s): L89.302 - Pressure ulcer of unspecified buttock, stage 2 (3) Catheter-associated urinary tract infection Encounter type: initial encounter Indwelling urinary catheter type: unspecified Qualified Code(s): T83.511A - Infection and inflammatory reaction due to indwelling urethral catheter, initial encounter; N39.0 - Urinary tract infection, site not specified (4) Atrial fibrillation Atrial fibrillation type: chronic Qualified Code(s): I48.2 - Chronic atrial fibrillation (5) Iron deficiency anemia Iron deficiency anemia type: unspecified iron deficiency Qualified Code(s): D50.9 - Iron deficiency anemia, unspecified (6) Hypertension Hypertension type: essential hypertension Qualified Code(s): I10 - Essential (primary) hypertension
[2020-05-07] MEDS: ALBUT/IPRATROP 3MG/0.5MG NEB 3 ML VIAL NEB SCH ×6 (03:38→22:37)
[2020-05-07 06:45] LABS: BUN Creatinine Ratio 21.9 (10-20); Calcium 8.5 mg/dl (8.5-10.1); Creatinine Clr Calc Pharmacy 30.3 ml/min; Est GFR (African American) 40.5; Potassium 4.7 mmol/L (3.5-5.1)
[2020-05-07] MEDS: SODIUM CHLOR 7% 4 ML NEB INH SCH ×2 (07:35→19:07)
[2020-05-07] MEDS ORDERED: IRON SUCROSE 200 MG in 0.9 % SODIUM CHLORIDE 100 ML IV ONE (08:30)
[2020-05-07] MEDS: CEFEPIME 2,000 MG in SYRINGE 7.5 ML IV SCH (09:26)
[2020-05-07] MEDS: UMECLIDINIUM BROMIDE 62.5MCG/BLISTER 7 PUFFS/INHALER INH SCH (09:26)
[2020-05-07] MEDS: FLUTICASONE/VILANTEROL 100/25MCG 14 PUFFS/INHALER INH SCH (09:26)
[2020-05-07] MEDS: CHOLECALCIFEROL 1,000 UNITS 25 MCG TAB PO SCH (09:27)
[2020-05-07] MEDS: FLUTICASONE PROPIONATE NA SPR 16 GM BTL SCH (09:27)
[2020-05-07] MEDS: METOPROLOL SUCC 25MG EXT REL TAB PO SCH (09:27)
[2020-05-07] MEDS: FLUCONAZOLE 100 MG TAB PO SCH (09:27)
[2020-05-07] MEDS: APIXABAN 2.5 MG TAB PO SCH ×2 (09:28→20:41)
[2020-05-07] MEDS: PANTOprazole 40 MG TAB PO SCH (09:28)
[2020-05-07] MEDS: FOLIC ACID 400 MCG TAB PO SCH (09:28)
[2020-05-07] MEDS: MONTELUKAST SODIUM 10 MG TABLET PO SCH (09:28)
[2020-05-07] MEDS: predniSONE 10 MG TABLET PO SCH (09:28)
[2020-05-07] MEDS: guaiFENesin 600 MG TABCR PO SCH ×2 (09:29→20:40)
[2020-05-07] MEDS: CYANOCOBALAMIN 500 MCG TABLET (VITAMIN B-12) PO SCH (09:29)
[2020-05-07] MEDS: POLYETHYLENE (MIRALAX) 17 GM PACK PO SCH (09:32)
[2020-05-07] MEDS: DOCUSATE SODIUM 100 MG CAP PO SCH ×2 (09:32→20:41)
[2020-05-07] MEDS: ACETAMINOPHEN 325 MG TAB PO PRN ×3 (10:18→21:57)
[2020-05-07] MEDS ORDERED: ALBUTEROL HFA 8 GM INHALER INH PRN (14:22)
[2020-05-07] MEDS: FUROSEMIDE 20 MG TAB PO SCH (17:29)
[2020-05-07] MEDS: PRAVASTATIN SOD 20 MG TAB PO SCH (20:41)
--- NOTE | 2020-05-07 20:57 | Hospitalist Progress Note ---
Date of Service May 07, 2020 Assessment & Plan (1) Catheter-associated urinary tract infection: 2nd pseudomonas. also with ramonita albicans earlier this month. chronic tong -- exchanged in the ED this admission. US guided IV in place; finish 14-day course of IV cefepime/IV antibiotics (day #1 was 04/27). thus, today is #11 of IV abx. last dose on 05/10/2020. continue Diflucan PO for 3 more days then stop. (2) COPD (chronic obstructive pulmonary disease): with exacerbation cont prednisone - wean to 20mg tomorrow; plan 3 days of 20mg, then 3 days of 10mg, then stop duonebs qid cont pulmonary toilet (3) Hyperkalemia: 2nd to mild MOHAN in setting of CKD. resolved. (4) Iron deficiency anemia: s/p venofer today without side effects. he has received 3 serial doses. check ferritin in am to see if additional doses are needed. Hb today stable at 8.1. fecal occult NEGATIVE. (5) Fecal impaction: resolved. cont bowel maintenance. moving bowels well. (6) Weakness: acute/chronic minimal activity at home, but now 2-person assist for transfers and standing daughter observed PT session with patient and agrees rehab is needed referral placed to [facility]; auth pending (7) Anticoagulant long-term use: continue eliquis (8) Atrial fibrillation: PAF in NSR this admission eliquis beta alan (9) Chronic respiratory failure with hypoxia: 2.5 l at baseline continuously due to COPD no increase in O2 requirements even w/ exacerbation (10) Chronic kidney disease, stage 3: baseline Cr 1.6 to 1.8 mild MOHAN resolved (11) BPH (benign prostatic hyperplasia): not on meds for such BPH cause of chronic tong use?? apparently had what sounds like TURP several years ago and since has had chronic tong (12) Hypertension: cont home meds had been taking daily lasix 20mg at home - resume (13) Pressure ulcer of unspecified buttock, stage 2: b/l buttocks -- POA (present on admission). appreciate wound care nurse consultation. cont local barrier methods and turning. refusing OOB. (14) Anxiety: buspar worked well and w/o side effects schedule buspar 5mg BID (15) Acute kidney injury: resolved (16) DVT prophylaxis: eliquis [facility] referral made late last week; auth pending patient REFUSING any SNF rehab option as backup if not approved for acute rehab at [facility] if [facility] is denied then home with HH/PT/OT?? daughter updated by phone 05/06/20 Admission and Anticipated Discharge Date Admission Date: April 26, 2020 Subjective no new events overnight. states that buspar was helpful with anxiety at HS last night and that he felt that it helped him rest. good day today overall - breathing mainly comfortable except for occasional dyspnea. some cough. moved bowels again. no abdominal pain. eating well. tolerated venofer again. he understands that auth for [facility] is still pending. c/o his back - this is chronic - no worse than at home. used k-pad - this helped. Review of Systems Constitutional: no fever, no chills and no anorexia Respiratory: + wheezing; no hemoptysis and no sputum production Cardiovascular: no chest pain, no orthopnea and no edema Gastrointestinal: no abdominal pain Physical Exam Constitutional: no acute distress and no altered mental status ENMT: external ear and nose normal, oropharynx normal Respiratory: no respiratory distress Auscultation: + wheezes (b/l, end-exp, mild ); no crackles Cardiovascular: Rate/Rhythm: regular rate and regular rhythm Heart Sounds: normal S1 and normal S2; no murmur Vessels: posterior tibial pulses present and dorsalis pedis pulses present; no JVD Extremities: no edema Gastrointestinal (Abdomen): Inspection/Auscultation: + abdomen distended (mild, no change ) and normal bowel sounds Percussion/Palpation: abdomen soft; abdomen nontender and no guarding Skin: + pallor Neurologic: strength 5/5 b/l legs (hip flexion, ankle dorsiflexion/plantarflexion b/l) Psychiatric: Orientation: alert and oriented x 3 Affect: + anxious affect Results & Data Results & Data ([facility]) Vital Signs (Past 12 Hours) Vital Signs Temp Pulse Pulse Resp BP Pulse Ox 05/07/20 19:10 87 16 95 05/07/20 15:06 71 18 90 05/07/20 14:39 36.5 C 93 H 15 145/81 H 91 05/07/20 11:14 106 H 18 93 Laboratory Results Laboratory Results - last 24 hr 05/07/20 05/07/20 06:05 06:05 Hgb 8.1 L Sodium 144 Potassium 4.7 Chloride 114 H Carbon Dioxide 26 Anion Gap 4.0 BUN 38 H Creatinine 1.74 H Est Cr Clr Drug Dosing 30.3 Est GFR ( Amer) 40.5 Est GFR (Non-Af Amer) 35.0 BUN/Creatinine Ratio 21.9 H Glucose 87 Calcium 8.5 PG Care Time/CCT Total # of Minutes Spent Total Time Spent with Patient: Total time spent is greater than 50% in coordination of care (as documented) at patient's floor/unit and/or counseling patient: Coding Level of Care Code 93963 Subseq Hosp Care Lvl 2 Diagnoses Catheter-associated urinary tract infection T83.511A; N39.0 Encounter type: initial encounter Indwelling urinary catheter type: unspecified COPD (chronic obstructive pulmonary disease) J44.1 COPD type: COPD with acute exacerbation Hyperkalemia E87.5 Iron deficiency anemia D50.9 Iron deficiency anemia type: unspecified iron deficiency Fecal impaction K56.41 Weakness R53.1 Anticoagulant long-term use Z79.01 Atrial fibrillation I48.2 Atrial fibrillation type: chronic Chronic respiratory failure with hypoxia J96.11 Chronic kidney disease, stage 3 N18.3 BPH (benign prostatic hyperplasia) N40.1; R33.8 Lower urinary tract symptom detail: urinary retention Lower urinary tract symptom presence: symptoms present Hypertension I10 Hypertension type: essential hypertension Pressure ulcer of unspecified buttock, stage 2 L89.302 Laterality: unspecified laterality Anxiety F41.9 Acute kidney injury N17.9 DVT prophylaxis Z29.9 (1) BPH (benign prostatic hyperplasia) Lower urinary tract symptom detail: urinary retention Lower urinary tract symptom presence: symptoms present Qualified Code(s): N40.1 - Benign prostatic hyperplasia with lower urinary tract symptoms; R33.8 - Other retention of urine (2) Pressure ulcer of unspecified buttock, stage 2 Laterality: unspecified laterality Qualified Code(s): L89.302 - Pressure ulcer of unspecified buttock, stage 2 (3) Catheter-associated urinary tract infection Encounter type: initial encounter Indwelling urinary catheter type: unspecified Qualified Code(s): T83.511A - Infection and inflammatory reaction due to indwelling urethral catheter, initial encounter; N39.0 - Urinary tract infection, site not specified (4) Atrial fibrillation Atrial fibrillation type: chronic Qualified Code(s): I48.2 - Chronic atrial fibrillation (5) Iron deficiency anemia Iron deficiency anemia type: unspecified iron deficiency Qualified Code(s): D50.9 - Iron deficiency anemia, unspecified (6) COPD (chronic obstructive pulmonary disease) COPD type: COPD with acute exacerbation Qualified Code(s): J44.1 - Chronic obstructive pulmonary disease with (acute) exacerbation (7) Hypertension Hypertension type: essential hypertension Qualified Code(s): I10 - Essential (primary) hypertension
[2020-05-07] MEDS: MELATONIN 3 MG TAB PO SCH (21:57)
[2020-05-07] MEDS: OXYCODONE HCL IR 5 MG TAB (IMMEDIATE RELEASE) PO SCH (21:57)
[2020-05-08] MEDS: ALBUT/IPRATROP 3MG/0.5MG NEB 3 ML VIAL NEB SCH ×6 (03:22→23:13)
[2020-05-08 07:04] LABS: BUN Creatinine Ratio 19.6 (10-20); Calcium 9.1 mg/dl (8.5-10.1); Creatinine Clr Calc Pharmacy 26.8 ml/min; Est GFR (African American) 34.9; Est GFR (Non-African American) 30.1; Potassium 4.5 mmol/L (3.5-5.1)
[2020-05-08] MEDS: SODIUM CHLOR 7% 4 ML NEB INH SCH ×2 (07:05→19:05)
[2020-05-08 07:09] LABS: Ferritin 750.8 ng/ml (8-388)
[2020-05-08 09:06] LABS: Hematocrit (blood only) 28.6 % (42-52); Hemoglobin 9.1 g/dL (14.0-18.0); Mean Corpuscular Hemoglobin 31.1 pg (25-34); Mean Corpuscular Hgb Conc 31.8 g/dL (32-36); Mean Corpuscular Volume 97.6 fL (80-100); Mean Platelet Volume 9.6 fL (7.4-10.4); Nucleated RBC # (auto) 0.08 K/uL (0-0); Nucleated RBC % (auto) 0.7 %; Platelet Count 340 K/uL (130-400); RDW Coefficient of Variation 15.6 % (11.5-14.5); RDW Standard Deviation 54.3 fL (36.4-46.3); Red Blood Count 2.93 M/uL (4.7-6.1); White Blood Count 12.19 K/uL (4.8-10.8)
[2020-05-08] MEDS: CEFEPIME 2,000 MG in SYRINGE 7.5 ML IV SCH (09:25)
[2020-05-08] MEDS: FUROSEMIDE 20 MG TAB PO SCH (09:26)
[2020-05-08] MEDS: predniSONE 20 MG TAB PO SCH (09:26)
[2020-05-08] MEDS: guaiFENesin 600 MG TABCR PO SCH ×2 (09:26→20:03)
[2020-05-08] MEDS: APIXABAN 2.5 MG TAB PO SCH ×2 (09:26→20:02)
[2020-05-08] MEDS: FOLIC ACID 400 MCG TAB PO SCH (09:27)
[2020-05-08] MEDS: METOPROLOL SUCC 25MG EXT REL TAB PO SCH (09:27)
[2020-05-08] MEDS: PANTOprazole 40 MG TAB PO SCH (09:27)
[2020-05-08] MEDS: FLUCONAZOLE 100 MG TAB PO SCH (09:27)
[2020-05-08] MEDS: CHOLECALCIFEROL 1,000 UNITS 25 MCG TAB PO SCH (09:28)
[2020-05-08] MEDS: CYANOCOBALAMIN 500 MCG TABLET (VITAMIN B-12) PO SCH (09:28)
[2020-05-08] MEDS: MONTELUKAST SODIUM 10 MG TABLET PO SCH (09:28)
[2020-05-08] MEDS: FLUTICASONE PROPIONATE NA SPR 16 GM BTL SCH (09:31)
[2020-05-08] MEDS: UMECLIDINIUM BROMIDE 62.5MCG/BLISTER 7 PUFFS/INHALER INH SCH (09:31)
[2020-05-08] MEDS: FLUTICASONE/VILANTEROL 100/25MCG 14 PUFFS/INHALER INH SCH (09:32)
[2020-05-08 09:33] LABS: BUN Creatinine Ratio 18.2 (10-20); Calcium 9.5 mg/dl (8.5-10.1); Creatinine Clr Calc Pharmacy 27.5 ml/min; Est GFR (Non-African American) 31.1; Potassium 4.3 mmol/L (3.5-5.1)
[2020-05-08] MEDS: POLYETHYLENE (MIRALAX) 17 GM PACK PO SCH (09:35)
[2020-05-08] MEDS: DOCUSATE SODIUM 100 MG CAP PO SCH ×2 (09:35→20:02)
[2020-05-08] MEDS: ACETAMINOPHEN 325 MG TAB PO PRN ×3 (10:03→20:00)
--- NOTE | 2020-05-08 11:40 | XRay Report ---
SINGLE VIEW CHEST CLINICAL HISTORY: Expiratory wheezing. Rhonchi. FINDINGS: An AP, portable, upright chest radiograph is compared to study dated 05/02/2020. Correlation is made with chest CT dated 01/13/2019. The examination is degraded by portable technique and patient rotation the heart is top normal for projection noting atherosclerotic calcification of the thoracic aorta. Advanced emphysema and chronic interstitial thickening are similar to previous. No airspace c onsolidation or large pleural effusion is identified. Scarring/atelectasis is noted at the lung bases . No pneumothorax is seen. The skeletal structures are osteopenic. The bony thorax is grossly intact. IMPRESSION: Emphysematous change with no acute cardiopulmonary abnormality. ACT 112: Negative or not required by law. Electronically signed by: Vidal Love M.D. 05/08/2020 11:38 AM
--- NOTE | 2020-05-08 17:30 | Hospitalist Progress Note ---
Date of Service May 08, 2020 Assessment & Plan (1) Catheter-associated urinary tract infection: 2nd to pseudomonas. also with ramonita albicans earlier this month. chronic tong -- exchanged in the ED this admission. US guided IV in place; finish 14-day course of IV cefepime/IV antibiotics (day #1 was 04/27). last dose on 05/10/2020. continue Diflucan PO for 2 more days then stop. (2) COPD (chronic obstructive pulmonary disease): with exacerbation cont prednisone - weaned to 20mg today - 3 days of 20mg, then 3 days of 10mg, then stop duonebs qid cont pulmonary toilet (3) Hyperkalemia: 2nd to mild MOHAN in setting of CKD. resolved. (4) Iron deficiency anemia: s/p Venofer without side effects. he has received 3 serial doses. Hgb stable fecal occult NEGATIVE. (5) Fecal impaction: resolved. cont bowel maintenance. moving bowels well. (6) Weakness: acute/chronic minimal activity at home, but now 2-person assist for transfers and standing daughter observed PT session with patient and agrees rehab is needed referral placed to [facility]; auth pending - patient is refusing alternative options should [facility] not be approved (7) Anticoagulant long-term use: continue eliquis (8) Atrial fibrillation: PAF Heart rate controlled eliquis beta alan (9) Chronic respiratory failure with hypoxia: 2.5 L at baseline continuously due to COPD no increase in O2 requirements even w/ exacerbation CXR with emphysmatous changes, no acute (10) Chronic kidney disease, stage 3: baseline Cr 1.6 to 1.8 - remains slightly elevated at 1.92, electrolytes wnl (11) BPH (benign prostatic hyperplasia): not on meds for such BPH cause of chronic tong use?? apparently had what sounds like TURP several years ago and since has had chronic tong (12) Hypertension: cont home meds had been taking daily lasix 20mg at home - resume (13) Pressure ulcer of unspecified buttock, stage 2: b/l buttocks -- POA (present on admission). appreciate wound care nurse consultation. cont local barrier methods and turning. refusing OOB. (14) Anxiety: buspar worked well and w/o side effects schedule buspar 5mg BID (15) Acute kidney injury: resolved (16) DVT prophylaxis: eliquis [facility] referral made late last week; auth pending patient REFUSING any SNF rehab option as backup if not approved for acute rehab at [facility] if [facility] is denied then home with HH/PT/OT?? Admission and Anticipated Discharge Date Admission Date: April 26, 2020 Subjective Mr. Garcia is feeling well today, no complaints ROS Constitutional: no chills, aches, sweats or fever Respiratory: no sob,cough, sputum, or wheezing Cardiac: no chest pain, palpitations, edema, orthopnea or lightheadedness GI: no abdominal pain, nausea, vomiting, diarrhea or constipation : no dysuria or hesitancy Extremities: no joint pain or weakness Skin: no rash All other systems reviewed and negative Physical Exam Physical Exam: General: no distress Eyes: normal inspection, PERLL Respiratory: chest non tender, expiratory wheezes, normal breath sounds, no respiratory distress, no accessory muscle use Cardiac: regular rate and rhythm, no rub or gallop, no murmur, no edema, no jvd GI/: active bowel sounds, no abd pain or tenderness, soft, non distended Extremities: normal range of motion, normal strength, non tender Neuro/Psych: alert and oriented x 3, normal mood and affect Skin: normal color, dry Results & Data Results & Data ([facility]) Vital Signs (Past 12 Hours) Vital Signs Temp Pulse Pulse Pulse Resp BP Pulse Ox 05/08/20 15:59 36.6 C 81 18 135/71 96 05/08/20 15:23 94 H 16 98 05/08/20 11:43 94 05/08/20 11:05 105 H 19 97 05/08/20 07:56 36.7 C 99 H 18 160/81 H 96 05/08/20 07:05 83 17 96 PG Care Time/CCT Total # of Minutes Spent Total Time Spent with Patient: Total time spent is greater than 50% in coordination of care (as documented) at patient's floor/unit and/or counseling patient: Coding Level of Care Code 26792 Subseq Hosp Care Lvl 3 Diagnoses Catheter-associated urinary tract infection T83.511A; N39.0 Encounter type: initial encounter Indwelling urinary catheter type: unspecified COPD (chronic obstructive pulmonary disease) J44.1 COPD type: COPD with acute exacerbation Hyperkalemia E87.5 Iron deficiency anemia D50.9 Iron deficiency anemia type: unspecified iron deficiency Fecal impaction K56.41 Weakness R53.1 Anticoagulant long-term use Z79.01 Atrial fibrillation I48.2 Atrial fibrillation type: chronic Chronic respiratory failure with hypoxia J96.11 Chronic kidney disease, stage 3 N18.3 BPH (benign prostatic hyperplasia) N40.1; R33.8 Lower urinary tract symptom presence: symptoms present Lower urinary tract symptom detail: urinary retention Hypertension I10 Hypertension type: essential hypertension Pressure ulcer of unspecified buttock, stage 2 L89.302 Laterality: unspecified laterality Anxiety F41.9 Acute kidney injury N17.9 DVT prophylaxis Z29.9 (1) Catheter-associated urinary tract infection Encounter type: initial encounter Indwelling urinary catheter type: unspecified Qualified Code(s): T83.511A - Infection and inflammatory reaction due to indwelling urethral catheter, initial encounter; N39.0 - Urinary tract infection, site not specified (2) COPD (chronic obstructive pulmonary disease) COPD type: COPD with acute exacerbation Qualified Code(s): J44.1 - Chronic obstructive pulmonary disease with (acute) exacerbation (3) Iron deficiency anemia Iron deficiency anemia type: unspecified iron deficiency Qualified Code(s): D50.9 - Iron deficiency anemia, unspecified (4) Atrial fibrillation Atrial fibrillation type: chronic Qualified Code(s): I48.2 - Chronic atrial fibrillation (5) BPH (benign prostatic hyperplasia) Lower urinary tract symptom presence: symptoms present Lower urinary tract symptom detail: urinary retention Qualified Code(s): N40.1 - Benign prostatic hyperplasia with lower urinary tract symptoms; R33.8 - Other retention of urine (6) Hypertension Hypertension type: essential hypertension Qualified Code(s): I10 - Essential (primary) hypertension (7) Pressure ulcer of unspecified buttock, stage 2 Laterality: unspecified laterality Qualified Code(s): L89.302 - Pressure ulcer of unspecified buttock, stage 2
[2020-05-08] MEDS: PRAVASTATIN SOD 20 MG TAB PO SCH (20:03)
[2020-05-08] MEDS: MELATONIN 3 MG TAB PO SCH (22:03)
[2020-05-08] MEDS: OXYCODONE HCL IR 5 MG TAB (IMMEDIATE RELEASE) PO SCH (22:03)
[2020-05-09] MEDS: ALBUT/IPRATROP 3MG/0.5MG NEB 3 ML VIAL NEB SCH ×6 (03:28→22:50)
[2020-05-09 05:53] LABS: Hematocrit (blood only) 25.9 % (42-52); Hemoglobin 8.2 g/dL (14.0-18.0); Mean Corpuscular Hemoglobin 31.1 pg (25-34); Mean Corpuscular Hgb Conc 31.7 g/dL (32-36); Mean Corpuscular Volume 98.1 fL (80-100); Mean Platelet Volume 9.5 fL (7.4-10.4); Platelet Count 298 K/uL (130-400); RDW Coefficient of Variation 16.3 % (11.5-14.5); RDW Standard Deviation 54.5 fL (36.4-46.3); Red Blood Count 2.64 M/uL (4.7-6.1); White Blood Count 10.75 K/uL (4.8-10.8)
[2020-05-09 06:24] LABS: Calcium 8.3 mg/dl (8.5-10.1); Est GFR (African American) 38.4; Est GFR (Non-African American) 33.1; Potassium 4.2 mmol/L (3.5-5.1)
[2020-05-09] MEDS: SODIUM CHLOR 7% 4 ML NEB INH SCH ×2 (07:23→19:32)
[2020-05-09] MEDS: METOPROLOL SUCC 25MG EXT REL TAB PO SCH (08:37)
[2020-05-09] MEDS: FOLIC ACID 400 MCG TAB PO SCH (08:38)
[2020-05-09] MEDS: CYANOCOBALAMIN 500 MCG TABLET (VITAMIN B-12) PO SCH (08:38)
[2020-05-09] MEDS: predniSONE 20 MG TAB PO SCH (08:38)
[2020-05-09] MEDS: MONTELUKAST SODIUM 10 MG TABLET PO SCH (08:39)
[2020-05-09] MEDS: PANTOprazole 40 MG TAB PO SCH (08:39)
[2020-05-09] MEDS: CHOLECALCIFEROL 1,000 UNITS 25 MCG TAB PO SCH (08:39)
[2020-05-09] MEDS: guaiFENesin 600 MG TABCR PO SCH ×2 (08:39→21:49)
[2020-05-09] MEDS: FUROSEMIDE 20 MG TAB PO SCH (08:39)
[2020-05-09] MEDS: FLUTICASONE/VILANTEROL 100/25MCG 14 PUFFS/INHALER INH SCH (08:40)
[2020-05-09] MEDS: FLUTICASONE PROPIONATE NA SPR 16 GM BTL SCH (08:40)
[2020-05-09] MEDS: APIXABAN 2.5 MG TAB PO SCH ×2 (08:40→21:49)
[2020-05-09] MEDS: UMECLIDINIUM BROMIDE 62.5MCG/BLISTER 7 PUFFS/INHALER INH SCH (08:40)
[2020-05-09] MEDS: DOCUSATE SODIUM 100 MG CAP PO SCH ×2 (08:42→21:49)
[2020-05-09] MEDS: POLYETHYLENE (MIRALAX) 17 GM PACK PO SCH (08:42)
[2020-05-09] MEDS: ACETAMINOPHEN 325 MG TAB PO PRN ×3 (08:49→21:50)
[2020-05-09] MEDS ORDERED: predniSONE 20 MG TAB PO STA (09:36)
--- NOTE | 2020-05-09 11:11 | Billing Data ---
Date of Service May 08, 2020 Coding Level of Care Code 94790 Subseq Hosp Care Lvl 2
--- NOTE | 2020-05-09 11:41 | Electrocardiogram Report ---
Test Reason : Blood Pressure : / mmHG Vent. Rate : 121 BPM Atrial Rate : 121 BPM P-R Int : 048 ms QRS Dur : 084 ms QT Int : 446 ms P-R-T Axes : 000 -23 034 degrees QTc Int : 633 ms Sinus tachycardia Nonspecific ST and T wave abnormality Abnormal ECG When compared with ECG of 31-MAR-2020 17:05, MO interval has decreased Nonspecific T wave abnormality, worse in Anterolateral leads Confirmed by Mateo Lanza ([id number]) on 05/09/2020 11:40:49 AM Referred By: REFERRED SELF Confirmed By:Denis Lanza
--- NOTE | 2020-05-09 13:01 | Hospitalist Progress Note ---
Date of Service May 09, 2020 Assessment & Plan (1) Catheter-associated urinary tract infection: 2nd to pseudomonas. also with ramonita albicans earlier this month. chronic tong -- exchanged in the ED this admission. US guided IV in place; finish 14-day course of IV cefepime/IV antibiotics (day #1 was 04/27). last dose on 05/10/2020. Diflucan completed (2) COPD (chronic obstructive pulmonary disease): with exacerbation - worsening today CXR 05/08 without pneumonia or acute changes cont prednisone - will resume 40 mg as patient is worsening duonebs qid cont pulmonary toilet Consult pulmonology (3) Hyperkalemia: 2nd to mild MOHAN in setting of CKD. resolved. (4) Iron deficiency anemia: s/p Venofer without side effects. he has received 3 serial doses. Hgb stable fecal occult NEGATIVE. (5) Fecal impaction: resolved. cont bowel maintenance. moving bowels well. (6) Weakness: acute/chronic minimal activity at home, but now 2-person assist for transfers and standing daughter observed PT session with patient and agrees rehab is needed referral placed to [facility]; auth pending - patient is refusing alternative options should [facility] not be approved (7) Anticoagulant long-term use: continue eliquis (8) Atrial fibrillation: PAF Heart rate tachycardic but sinus rhythm 05/09, patient without symptoms eliquis beta alan (9) Chronic respiratory failure with hypoxia: 2.5 L at baseline continuously - now requiring 4L due to COPD CXR with emphysmatous changes, no acute (10) Chronic kidney disease, stage 3: baseline Cr 1.6 to 1.8 - stable (11) BPH (benign prostatic hyperplasia): not on meds for such BPH cause of chronic tong use?? apparently had what sounds like TURP several years ago and since has had chronic tong (12) Hypertension: cont home meds had been taking daily lasix 20mg at home - resume (13) Pressure ulcer of unspecified buttock, stage 2: b/l buttocks -- POA (present on admission). appreciate wound care nurse consultation. cont local barrier methods and turning. refusing OOB. (14) Anxiety: buspar worked well and w/o side effects schedule buspar 5mg BID (15) Acute kidney injury: resolved (16) DVT prophylaxis: eliquis [facility] referral made late last week; auth pending patient REFUSING any SNF rehab option as backup if not approved for acute rehab at [facility]. Discussed with his daughter Bren. She did mention that Mr. Garcia has said he does not want to come to the hospital anymore and asked if he would be appropriate for hospice. I will place a consult for palliative care for a discussion of goals of care. if [facility] is denied then home with HH/PT/OT?? Admission and Anticipated Discharge Date Admission Date: April 26, 2020 Subjective Mr. Garcia has no complaints. He has been having lower saturations today and requiring 4L NC. ROS Constitutional: no chills, aches, sweats or fever Respiratory: no sob,cough, sputum, or wheezing Cardiac: no chest pain, palpitations, edema, orthopnea or lightheadedness GI: no abdominal pain, nausea, vomiting, diarrhea or constipation : no dysuria or hesitancy Extremities: no joint pain or weakness Skin: no rash All other systems reviewed and negative Physical Exam Physical Exam: General: no distress Eyes: normal inspection, PERLL Respiratory: chest non tender, expiratory wheezes/rhonchi bilaterally, normal breath sounds, no respiratory distress, no accessory muscle use Cardiac: regular rate and rhythm, no rub or gallop, no murmur, no edema, no jvd GI/: active bowel sounds, no abd pain or tenderness, soft, non distended Extremities: normal range of motion, normal strength, non tender Neuro/Psych: alert and oriented x 3, normal mood and affect Skin: normal color, dry Results & Data Results & Data ([facility]) Vital Signs (Past 12 Hours) Vital Signs Temp Pulse Resp Pulse Ox 05/09/20 11:22 111 H 18 97 05/09/20 07:23 107 H 18 85 L 05/09/20 07:15 36.4 C L 93 H 18 98 PG Care Time/CCT Total # of Minutes Spent Total Time Spent with Patient: Total time spent is greater than 50% in coordination of care (as documented) at patient's floor/unit and/or counseling patient: Coding Level of Care Code 13866 Subseq Hosp Care Lvl 2 Diagnoses Catheter-associated urinary tract infection T83.511A; N39.0 Encounter type: initial encounter Indwelling urinary catheter type: unspecified COPD (chronic obstructive pulmonary disease) J44.1 COPD type: COPD with acute exacerbation Hyperkalemia E87.5 Iron deficiency anemia D50.9 Iron deficiency anemia type: unspecified iron deficiency Fecal impaction K56.41 Weakness R53.1 Anticoagulant long-term use Z79.01 Atrial fibrillation I48.2 Atrial fibrillation type: chronic Chronic respiratory failure with hypoxia J96.11 Chronic kidney disease, stage 3 N18.3 BPH (benign prostatic hyperplasia) N40.1; R33.8 Lower urinary tract symptom detail: urinary retention Lower urinary tract symptom presence: symptoms present Hypertension I10 Hypertension type: essential hypertension Pressure ulcer of unspecified buttock, stage 2 L89.302 Laterality: unspecified laterality Anxiety F41.9 Acute kidney injury N17.9 DVT prophylaxis Z29.9 (1) BPH (benign prostatic hyperplasia) Lower urinary tract symptom detail: urinary retention Lower urinary tract symptom presence: symptoms present Qualified Code(s): N40.1 - Benign prostatic hyperplasia with lower urinary tract symptoms; R33.8 - Other retention of urine (2) Pressure ulcer of unspecified buttock, stage 2 Laterality: unspecified laterality Qualified Code(s): L89.302 - Pressure ulcer of unspecified buttock, stage 2 (3) Catheter-associated urinary tract infection Encounter type: initial encounter Indwelling urinary catheter type: unspecified Qualified Code(s): T83.511A - Infection and inflammatory reaction due to indwelling urethral catheter, initial encounter; N39.0 - Urinary tract infection, site not specified (4) Atrial fibrillation Atrial fibrillation type: chronic Qualified Code(s): I48.2 - Chronic atrial fibrillation (5) Iron deficiency anemia Iron deficiency anemia type: unspecified iron deficiency Qualified Code(s): D50.9 - Iron deficiency anemia, unspecified (6) COPD (chronic obstructive pulmonary disease) COPD type: COPD with acute exacerbation Qualified Code(s): J44.1 - Chronic obstructive pulmonary disease with (acute) exacerbation (7) Hypertension Hypertension type: essential hypertension Qualified Code(s): I10 - Essential (primary) hypertension
[2020-05-09] MEDS: CEFEPIME 2,000 MG in SYRINGE 7.5 ML IV SCH (13:44)
--- NOTE | 2020-05-09 14:22 | Pulmonary Consultation ---
Date of Consultation May 09, 2020 Assessment & Plan (1) Acute on chronic respiratory failure with hypoxia: Agree to treat with antibiotics and steroids for mixed pneumonia, atelectasis, COPD exacerbation Patient extremely rhonchorous Will start flutter valve, incentive spirometry, and chest percussion for aggressive pulmonary toilet Continue antibiotics for 7 days Titrate prednisone as tolerated (2) COPD (chronic obstructive pulmonary disease): Most recent PFTs from 2013 Home medications include albuterol HFA, duo nebs, Dulera, Spiriva Respimat, and Singulair Currently receiving duo nebs, fluticasone/Vilanterol, and Umeclidinium inpatient as well as prednisone Currently being diuresed and is -3.558 L so far this admission since 04/26/2020 Patient reports that he has been following with Jesus Manuel Mcdaniel for several years but last 3 notes indicate that he is seen JONE Maldonado Outpatient follow-up as appropriate COPD type: COPD with acute exacerbation Qualified Code(s): J44.1 - Chronic obstructive pulmonary disease with (acute) exacerbation (3) Atrial fibrillation with RVR: Currently normal sinus rhythm but tachycardic with a rate of 113 Continue anticoagulation with apixaban and metoprolol succinate Continue treatment for underlying pulmonary issues in the hopes that his heart rate improves (4) Acute on chronic diastolic HF (heart failure): Continue with diuretics So far this admission patient is -3.5 L Continue to follow strict ins and outs Most recent echocardiogram looks like 01/12/2019 with preserved left ventricular ejection fraction of 55 to 60%, type I diastolic dysfunction Continue to follow (5) Tobacco use disorder: Greater than [id number] history Patient reports that he quit smoking 18 months ago Encourage continue abstinence from tobacco products Thank you very much for including us in the care of this patient. We will follow along with you. It would seem to be appropriate to consider palliative care consult. May consider scopolamine patch if palliation is considered. Please refer to Dr. Haddad's addendum for further recommendations. Supervising Physician Co-Signing Physician Notes Pt seen and examined with Vidal Haney PA-C. Agree with A/P aside for additions/exceptions noted: Chronic hypoxemic resp failure with COPD. Very poor functional status with chronic tong and sacral decubitus ulcers. Would limit prednisone to a very short course given underlying infection risk and poor wound healing. Inhalers as previous. Duo-neb q4h prn. Airway clearance as tolerated. Discussed code status. Patient would prefer to be DNR/DNI. Additionally, patient and daughter agreeable to discussions with palliative care regarding hospice. Not ready for opiates. Says pain is controlled with tylenol. Opiates maybe useful for air hunger in end of life state. Poor prognosis. History of Present Illness Attending Physician: Aj Garcia MD History of Present Illness Attending: Dr. Haddad This is an 85-year-old male with a past medical history including to bacco abuse (quit smoking 18 months ago), acute on chronic kidney injury, chronic diastolic heart failure, pressure ulcer of the buttock stage II, iron deficiency anemia, hyperkalemia, chronic indwelling Tong catheter, COPD, chronic respiratory failure with hypoxia requiring supplemental oxygen, fecal impaction, generalized weakness, ambulatory dysfunction requiring electric wheelchair, long-term use of anticoagulant, chronic sinus tachycardia, atrial fibrillation, nephrolithiasis. Patient states that he follows with Jesus Manuel Mcdaniel PA-C at the pulmonary clinic. He has history of shortness of breath and states that he usually gets prednisone and just rests and it improves. He is on chronic supplemental O2 at 2 to 3 L/min via nasal cannula. If is extremely short of breath he turns the oxygen up and feels better shortly. He likes to read and has no other hobbies. He is fairly sedentary and has ambulatory dysfunction requiring an electric wheelchair. He lives with his who has muscular dystrophy and also has electric wheelchair. He has a granddaughter and a daughter who provide care for them as needed. He reports he typically has care from 10 PM until 6 AM. When a caregivers not at the house, they only live 40 feet away and are able to come over quickly. He was offered rehab recently and refuses saying that he cannot get any stronger. He reiterated that he is perfectly content to lay in bed and watch TV and that he knows that at 85 years of age he is going to soon. He states he is fairly content with his life. He has no suicidal ideation. He enjoys visiting with his family and states that he sees them often. He denies any contact with COVID positive patients or contact with anyone from endemic areas. He has no loss of taste or smell. He denies any fever. His cough is nonproductive and chronic. The patient does have a history of tobacco abuse and states that he smoked 2 to 3 packs a day up until 18 months ago. 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 He has no history of thromboembolic disease. Allergies Allergy/AdvReac Type Severity Reaction Status Date / Time tamsulosin Allergy Unknown Unknown Verified 04/26/20 12:25 cilostazol AdvReac Intermediate dizziness, Verified 04/26/20 12:25 palpitations diltiazem AdvReac Intermediate dizziness, Verified 04/26/20 12:25 palpitations simvastatin AdvReac Mild dizziness Verified 04/26/20 12:25 Home Medications Home Medications Medication Instructions Recorded Confirmed Type pravastatin 20 mg tablet 20 mg PO QPM #90 tab 08/03/19 04/26/20 Rx albuterol sulfate 2 puff INHALATION QID PRN 09/13/19 04/26/20 History cholecalciferol (vitamin D3) 2,000 units PO QAM 10/03/19 04/26/20 History [Vitamin D3] cyanocobalamin (vitamin B-12) 1,000 mcg PO QAM 10/03/19 04/26/20 History ipratropium 0.5 mg-albuterol 3 mg 3 ml INHALATION TID #180 ml 01/17/20 04/26/20 Rx (2.5 mg base)/3 mL nebulization soln nitrofurantoin macrocrystal 50 mg 50 mg PO QAM #30 cap 01/24/20 04/26/20 Rx capsule sodium chloride 7 % for 4 ml INH BID #240 ml 02/23/20 04/26/20 Rx nebulization potassium chloride 10 mEq 10 meq PO Q2D #30 cap 03/09/20 04/26/20 Rx capsule,extended release tiotropium bromide 2.5 2 puffs INHALATION DAILY #4 ml 03/21/20 04/26/20 Rx mcg/actuation mist for inhalation folic acid 800 mcg PO QAM 03/31/20 04/26/20 History lorazepam 0.5 mg PO DAILY PRN 03/31/20 04/26/20 History melatonin 10 mg PO HS 03/31/20 04/26/20 History oxycodone 5 mg PO HS 06/26/20 07/22/20 History apixaban 2.5 mg tablet 2.5 mg PO BID #180 tab 04/17/20 04/26/20 Rx furosemide 40 mg tablet See Rx Instructions .ROUTE 04/20/20 04/26/20 Rx .COMPLEX #30 tab metoprolol succinate 75 mg PO DAILY 04/26/20 04/26/20 History mometasone-formoterol [Dulera] 1 puff INHALATION BID 04/26/20 04/26/20 History montelukast 10 mg tablet 10 mg PO QAM #90 tab 05/08/20 Rx Patient History Medical History (Updated 05/09/20 @ 14:49 by Vidal Haney PA-C) Actinic keratosis (Acute) Acute on chronic respiratory failure with hypoxia Anemia (Acute) Ankle edema, bilateral Pt admits to eating salty snacks lately. Advised to avoid salt. Asthma Benign prostatic hyperplasia with urinary obstruction (Acute) Eda disease (Acute) Cachexia Carotid artery plaque (Acute) <50% stenosis of internal carotids B/L by 2017 doppler Chronic diastolic heart failure 2+ ankle edema on exam at [facility] Chronic kidney disease, stage 3 Enlarged prostate Hematuria 2/2 renal calculi Hyperlipidemia Hypertension Indwelling Tong catheter present Insomnia (Acute) Leukocytosis (Acute) Nephrolithiasis (Acute) On home oxygen therapy 2lpm via n/c PAD (peripheral artery disease) (Acute) Paroxysmal atrial fibrillation Dx 07/28/18 during admission for COPD exacerbation. Initially in RVR, but spontaneously converted; started on Metoprolol and Eliquis. Eliquis discontinued during admission 03/08/19 due to hematuria. Pulmonary emphysema (Acute) Pulmonary nodule (Acute) Sinus tachycardia (Acute) UTI (urinary tract infection) (Acute) Vitamin D deficiency (Acute) Weight loss (Acute) Surgical History History of appendectomy History of colonoscopy History of cystoscopy WITH STENT, during admission 03/2019 History of lithotripsy History of tonsillectomy Hx of transurethral resection of prostate Family History Mother Cancer thyroid Brother Myocardial infarction Prostate cancer Father No problems noted. Other Family history non-contributory No significant family history Denies family history of Stroke Social History Smoking Status: Former smoker Cigarettes Per Day: 20; Second Hand Exposure: No; Do You Dip or Chew Tobacco: No; Tobacco Cessation Education Requested by Patient: No Hx Alcohol Use: No Hx Substance Use: No Preferred Language: Dutch Communication Ability: Effective Casino Dealer Required: No Beliefs That Will Affect Care: None marital status: Current Living Situation: Spouse Current Living Situation Comment: currently has home health services current occupational status: retired Other Information That Helps Us Care for You: No Feels Safe at Home: Yes Safety Concerns: Feels Safe At This Time Seatbelt Use: always Sunscreen Use: Yes Review of Systems Review of Systems: All systems reviewed & are unremarkable except as noted in HPI & below Physical Exam Physical Exam: GENERAL : No acute distress. Pleasant and talkative. No conversational dyspnea EYES: No icterus, gaze conjugate NOSE: No evidence of epistaxis MOUTH: No lesions or candidiasis NECK: Supple LUNGS: Diffusely rhonchorous. No appreciation of bronchospasm. Good inspiratory effort. HEART: Regular, tachycardic in the 1 teens. No appreciation of ectopy ABDOMEN: Soft, NT, ND, BS Present EXTREMITIES: No LE edema, pedal pulses intact and equal bilaterally NEURO: A&OX3 Results & Data Results & Data ([facility]) Vital Signs (Past 12 Hours) Vital Signs Temp Pulse Resp Pulse Ox 05/09/20 11:22 111 H 18 97 05/09/20 07:23 107 H 18 85 L 05/09/20 07:15 36.4 C L 93 H 18 98 Laboratory Results 05/09/20 05:17 05/09/20 05:17 Intake Total 97890 mL Output Total 63438 mL Balance -3558 mL Diagnostic Findings SINGLE VIEW CHEST CLINICAL HISTORY: Expiratory wheezing. Rhonchi. FINDINGS: An AP, portable, upright chest radiograph is compared to study dated 05/02/2020. Correlation is made with chest CT dated 01/13/2019. The examination is degraded by portable technique and patient rotation the heart is top normal for projection noting atherosclerotic calcification of the thoracic aorta. Advanced emphysema and chronic interstitial thickening are similar to previous. No airs pace consolidation or large pleural effusion is identified. Scarring/atelectasis is noted at the lung bases. No pneumothorax is seen. The skeletal structures are osteopenic. The bony thorax is grossly intact. IMPRESSION: Emphysematous change with no acute cardiopulmonary abnormality. ACT 112: Negative or not required by law. Electronically signed by: Vidal Love M.D. 05/08/2020 11:38 AM PG Care Time/CCT Total # of Minutes Spent Total Time Spent with Patient: Total time spent is greater than 50% in coordination of care (as documented) at patient's floor/unit and/or counseling patient: 60 minutes including discussion with other providers and primary team. Coding Level of Care Code 21636 Inpt Consult Level 5 Diagnoses Acute on chronic respiratory failure with hypoxia J96.21 COPD (chronic obstructive pulmonary disease) J44.1 COPD type: COPD with acute exacerbation Atrial fibrillation with RVR I48.91 Acute on chronic diastolic HF (heart failure) I50.33 Tobacco use disorder F17.200
[2020-05-09] MEDS: PRAVASTATIN SOD 20 MG TAB PO SCH (21:49)
[2020-05-09] MEDS: MELATONIN 3 MG TAB PO SCH (21:49)
[2020-05-09] MEDS: OXYCODONE HCL IR 5 MG TAB (IMMEDIATE RELEASE) PO SCH (21:49)
[2020-05-10] MEDS: ALBUT/IPRATROP 3MG/0.5MG NEB 3 ML VIAL NEB SCH ×6 (03:36→22:57)
[2020-05-10 06:10] LABS: Hematocrit (blood only) 27.4 % (42-52); Hemoglobin 8.5 g/dL (14.0-18.0); Mean Corpuscular Hemoglobin 30.2 pg (25-34); Mean Corpuscular Volume 97.5 fL (80-100); Mean Platelet Volume 9.7 fL (7.4-10.4); Nucleated RBC # (auto) 0.05 K/uL (0-0); Nucleated RBC % (auto) 0.5 %; Platelet Count 295 K/uL (130-400); RDW Coefficient of Variation 16.8 % (11.5-14.5); RDW Standard Deviation 55.6 fL (36.4-46.3); Red Blood Count 2.81 M/uL (4.7-6.1); White Blood Count 9.96 K/uL (4.8-10.8)
[2020-05-10 06:39] LABS: Albumin Level 2.5 gm/dl (3.4-5.0); BUN Creatinine Ratio 20.5 (10-20); Calcium 8.3 mg/dl (8.5-10.1); Creatinine Clr Calc Pharmacy 26.9 ml/min; Est GFR (African American) 35.1; Est GFR (Non-African American) 30.3; Potassium 4.7 mmol/L (3.5-5.1)
[2020-05-10 06:41] LABS: Albumin Globulin Ratio 0.7 (0.9-2); Bilirubin,Total 0.4 mg/dl (0.2-1); Globulin 3.7 gm/dl (2.5-4.0); Total Protein 6.2 gm/dl (6.4-8.2)
[2020-05-10] MEDS: SODIUM CHLOR 7% 4 ML NEB INH SCH ×2 (07:08→19:05)
[2020-05-10] MEDS: guaiFENesin 600 MG TABCR PO SCH ×2 (08:14→21:43)
[2020-05-10] MEDS: APIXABAN 2.5 MG TAB PO SCH ×2 (08:14→21:43)
[2020-05-10] MEDS: CHOLECALCIFEROL 1,000 UNITS 25 MCG TAB PO SCH (08:15)
[2020-05-10] MEDS: METOPROLOL SUCC 25MG EXT REL TAB PO SCH (08:15)
[2020-05-10] MEDS: FUROSEMIDE 20 MG TAB PO SCH (08:16)
[2020-05-10] MEDS: FOLIC ACID 400 MCG TAB PO SCH (08:16)
[2020-05-10] MEDS: CYANOCOBALAMIN 500 MCG TABLET (VITAMIN B-12) PO SCH (08:16)
[2020-05-10] MEDS: MONTELUKAST SODIUM 10 MG TABLET PO SCH (08:16)
[2020-05-10] MEDS: predniSONE 20 MG TAB PO SCH (08:17)
[2020-05-10] MEDS: PANTOprazole 40 MG TAB PO SCH (08:17)
[2020-05-10] MEDS: UMECLIDINIUM BROMIDE 62.5MCG/BLISTER 7 PUFFS/INHALER INH SCH (08:18)
[2020-05-10] MEDS: FLUTICASONE/VILANTEROL 100/25MCG 14 PUFFS/INHALER INH SCH (08:18)
[2020-05-10] MEDS: FLUTICASONE PROPIONATE NA SPR 16 GM BTL SCH (08:18)
[2020-05-10] MEDS: CEFEPIME 2,000 MG in SYRINGE 7.5 ML IV SCH (08:21)
[2020-05-10] MEDS: DOCUSATE SODIUM 100 MG CAP PO SCH ×2 (08:21→21:45)
[2020-05-10] MEDS: POLYETHYLENE (MIRALAX) 17 GM PACK PO SCH (08:21)
[2020-05-10] MEDS: ACETAMINOPHEN 325 MG TAB PO PRN ×3 (08:33→21:45)
[2020-05-10] MEDS: ALUMINUM/MAGNESIUM SUSP 30 ML UDC PO PRN (15:14)
--- NOTE | 2020-05-10 16:09 | Hospitalist Progress Note ---
Date of Service May 10, 2020 Assessment & Plan (1) Catheter-associated urinary tract infection: 2nd to pseudomonas. also with ramonita albicans earlier this month. chronic tong -- exchanged in the ED this admission. US guided IV in place; finish 14-day course of IV cefepime/IV antibiotics (day #1 was 04/27). last dose on 05/10/2020. Diflucan completed (2) COPD (chronic obstructive pulmonary disease): with exacerbation CXR 05/08 without pneumonia or acute changes cont prednisone - will resume 40 mg as patient is worsening duonebs qid cont pulmonary toilet Consulted pulmonology - patient with poor prognosis. Recommend limiting how long he is taking steroids given his infection risk and poor wound healing. Flutter valve. Could consider opioids in the future for air hunger (3) Hyperkalemia: 2nd to mild MOHAN in setting of CKD. resolved. (4) Iron deficiency anemia: s/p Venofer without side effects. he has received 3 serial doses. Hgb stable fecal occult NEGATIVE. (5) Fecal impaction: resolved. cont bowel maintenance. moving bowels well. (6) Weakness: acute/chronic minimal activity at home, but now 2-person assist for transfers and standing Denied [facility], patient refuses to consider snf (7) Anticoagulant long-term use: continue eliquis (8) Atrial fibrillation: PAF Heart rate tachycardic but sinus rhythm 05/09, patient without symptoms eliquis beta alan (9) Chronic respiratory failure with hypoxia: 2.5 L at baseline continuously due to COPD CXR with emphysmatous changes, no acute (10) Chronic kidney disease, stage 3: baseline Cr 1.6 to 1.8 - 1.9 today (11) BPH (benign prostatic hyperplasia): not on meds for such BPH cause of chronic tong use?? apparently had what sounds like TURP several years ago and since has had chronic tong (12) Hypertension: cont home meds had been taking daily lasix 20mg at home - resume (13) Pressure ulcer of unspecified buttock, stage 2: b/l buttocks -- POA (present on admission). appreciate wound care nurse consultation. cont local barrier methods and turning. refusing OOB. (14) Anxiety: buspar worked well and w/o side effects continue buspar 5mg BID (15) Acute kidney injury: resolved (16) DVT prophylaxis: markie Will go home tomorrow morning with home health. Transport arranged. Admission and Anticipated Discharge Date Admission Date: April 26, 2020 Subjective Discussed goals of care with Mr. Garcia and a POLST form was completed. He wishes to return to the hospital if he becomes ill again and is not ready for hospice. He did indicate that he would not want ICU care or mechanical ventilation and is a DNR. He wants to have treatment to prolong his life as long as it does not cause undo suffering. We discussed that his condition is progressive and that he may very well require further hospitalization. I also talked with his daughter and went over his POLST form with her as well. She does have some reservations about her father coming home without the support of hospice. We discussed that he will go home with home health and that if he decides it is time to transition to hospice the agency will be able to help him do so. Patient is absolutely adamant that he go home and not to a SNF. Review of Systems Review of Systems: All systems reviewed & are unremarkable except as noted in HPI & below Physical Exam Physical Exam: General: no distress Eyes: normal inspection, PERLL Respiratory: chest non tender, expiratory wheezes/rhonchi bilaterally, no respiratory distress, no accessory muscle use Cardiac: regular rate and rhythm, no rub or gallop, no murmur, no edema, no jvd GI/: active bowel sounds, no abd pain or tenderness, soft, non distended Extremities: normal range of motion, normal strength, non tender Neuro/Psych: alert and oriented x 3, normal mood and affect Skin: normal color, dry Results & Data Results & Data ([facility]) Vital Signs (Past 12 Hours) Vital Signs Temp Pulse Pulse Resp BP BP Pulse Ox 05/10/20 15:24 36.4 C L 80 20 160/77 H 94 05/10/20 15:10 82 18 96 05/10/20 11:49 84 16 98 05/10/20 07:17 36.3 C L 79 18 155/85 H 98 05/10/20 07:12 94 H 20 98 PG Care Time/CCT Total # of Minutes Spent Total Time Spent with Patient: Total time spent is greater than 50% in coordination of care (as documented) at patient's floor/unit and/or counseling patient: Coding Level of Care Code 34604 Subs Hosp Care [facility] 3 Diagnoses Catheter-associated urinary tract infection T83.511A; N39.0 Encounter type: initial encounter Indwelling urinary catheter type: unspecified COPD (chronic obstructive pulmonary disease) J44.1 COPD type: COPD with acute exacerbation Hyperkalemia E87.5 Iron deficiency anemia D50.9 Iron deficiency anemia type: unspecified iron deficiency Fecal impaction K56.41 Weakness R53.1 Anticoagulant long-term use Z79.01 Atrial fibrillation I48.2 Atrial fibrillation type: chronic Chronic respiratory failure with hypoxia J96.11 Chronic kidney disease, stage 3 N18.3 BPH (benign prostatic hyperplasia) N40.1; R33.8 Lower urinary tract symptom presence: symptoms present Lower urinary tract symptom detail: urinary retention Hypertension I10 Hypertension type: essential hypertension Pressure ulcer of unspecified buttock, stage 2 L89.302 Laterality: unspecified laterality Anxiety F41.9 Acute kidney injury N17.9 DVT prophylaxis Z29.9 (1) Catheter-associated urinary tract infection Encounter type: initial encounter Indwelling urinary catheter type: unspecified Qualified Code(s): T83.511A - Infection and inflammatory reaction due to indwelling urethral catheter, initial encounter; N39.0 - Urinary tract infection, site not specified (2) COPD (chronic obstructive pulmonary disease) COPD type: COPD with acute exacerbation Qualified Code(s): J44.1 - Chronic obstructive pulmonary disease with (acute) exacerbation (3) Iron deficiency anemia Iron deficiency anemia type: unspecified iron deficiency Qualified Code(s): D50.9 - Iron deficiency anemia, unspecified (4) Atrial fibrillation Atrial fibrillation type: chronic Qualified Code(s): I48.2 - Chronic atrial fibrillation (5) BPH (benign prostatic hyperplasia) Lower urinary tract symptom presence: symptoms present Lower urinary tract symptom detail: urinary retention Qualified Code(s): N40.1 - Benign prostatic hyperplasia with lower urinary tract symptoms; R33.8 - Other retention of urine (6) Hypertension Hypertension type: essential hypertension Qualified Code(s): I10 - Essential (primary) hypertension (7) Pressure ulcer of unspecified buttock, stage 2 Laterality: unspecified laterality Qualified Code(s): L89.302 - Pressure ulcer of unspecified buttock, stage 2
[2020-05-10] MEDS: MELATONIN 3 MG TAB PO SCH (21:43)
[2020-05-10] MEDS: PRAVASTATIN SOD 20 MG TAB PO SCH (21:43)
[2020-05-10] MEDS: OXYCODONE HCL IR 5 MG TAB (IMMEDIATE RELEASE) PO SCH (22:35)
[2020-05-11] MEDS: ALBUT/IPRATROP 3MG/0.5MG NEB 3 ML VIAL NEB SCH ×6 (05:14→23:09)
[2020-05-11 06:40] LABS: Creatinine Clr Calc Pharmacy 28.8 ml/min; Est GFR (African American) 38.1; Est GFR (Non-African American) 32.9
[2020-05-11] MEDS: SODIUM CHLOR 7% 4 ML NEB INH SCH ×2 (07:29→19:19)
[2020-05-11] MEDS: UMECLIDINIUM BROMIDE 62.5MCG/BLISTER 7 PUFFS/INHALER INH SCH (07:35)
[2020-05-11] MEDS: METOPROLOL SUCC 25MG EXT REL TAB PO SCH (07:35)
[2020-05-11] MEDS: PANTOprazole 40 MG TAB PO SCH (07:35)
[2020-05-11] MEDS: FOLIC ACID 400 MCG TAB PO SCH (07:35)
[2020-05-11] MEDS: APIXABAN 2.5 MG TAB PO SCH ×2 (07:35→22:10)
[2020-05-11] MEDS: FUROSEMIDE 20 MG TAB PO SCH (07:35)
[2020-05-11] MEDS: predniSONE 20 MG TAB PO SCH (07:35)
[2020-05-11] MEDS: CHOLECALCIFEROL 1,000 UNITS 25 MCG TAB PO SCH (07:36)
[2020-05-11] MEDS: CYANOCOBALAMIN 500 MCG TABLET (VITAMIN B-12) PO SCH (07:36)
[2020-05-11] MEDS: guaiFENesin 600 MG TABCR PO SCH ×2 (07:37→22:11)
[2020-05-11] MEDS: MONTELUKAST SODIUM 10 MG TABLET PO SCH (07:37)
[2020-05-11] MEDS: FLUTICASONE PROPIONATE NA SPR 16 GM BTL SCH (07:37)
[2020-05-11] MEDS: DOCUSATE SODIUM 100 MG CAP PO SCH ×2 (07:39→22:11)
[2020-05-11] MEDS: POLYETHYLENE (MIRALAX) 17 GM PACK PO SCH (07:39)
[2020-05-11] MEDS: CEFEPIME 2,000 MG in SYRINGE 7.5 ML IV SCH (08:06)
[2020-05-11] MEDS: ACETAMINOPHEN 325 MG TAB PO PRN ×3 (08:43→22:10)
[2020-05-11] MEDS: FLUTICASONE/VILANTEROL 100/25MCG 14 PUFFS/INHALER INH SCH (09:03)
--- NOTE | 2020-05-11 15:43 | Hospitalist Progress Note ---
Date of Service May 11, 2020 Assessment & Plan (1) Catheter-associated urinary tract infection: 2nd to pseudomonas. also with ramonita albicans earlier this month. chronic tong -- exchanged in the ED this admission. US guided IV in place; finished 14-day course of IV cefepime/IV antibiotics (day #1 was 04/27). last dose on 05/11/2020. Diflucan completed (2) COPD (chronic obstructive pulmonary disease): with exacerbation CXR 05/08 without pneumonia or acute changes cont prednisone - will taper for home duonebs qid pulmonary toilet Consulted pulmonology - patient with poor prognosis. Recommend limiting how long he is taking steroids given his infection risk and poor wound healing. Flutter valve. Could consider opioids in the future for air hunger (3) Hyperkalemia: 2nd to mild MOHAN in setting of CKD. resolved. (4) Iron deficiency anemia: s/p Venofer without side effects. he has received 3 serial doses. Hgb stable fecal occult NEGATIVE. (5) Fecal impaction: resolved. cont bowel maintenance. moving bowels well. (6) Weakness: acute/chronic minimal activity at home, but now 2-person assist for transfers and standing Denied [facility], patient refuses to consider snf, will go home on hospice (7) Anticoagulant long-term use: continue eliquis (8) Atrial fibrillation: PAF Heart rate tachycardic but sinus rhythm 05/09, patient without symptoms eliquis beta alan (9) Chronic respiratory failure with hypoxia: 2.5 L at baseline continuously due to COPD CXR with emphysmatous changes, no acute (10) Chronic kidney disease, stage 3: baseline Cr 1.6 to 1.8 - 1.9 today (11) BPH (benign prostatic hyperplasia): not on meds for such BPH cause of chronic tong use?? apparently had what sounds like TURP several years ago and since has had chronic tong (12) Hypertension: cont home meds had been taking daily lasix 20mg at home - resume (13) Pressure ulcer of unspecified buttock, stage 2: b/l buttocks -- POA (present on admission). appreciate wound care nurse consultation. cont local barrier methods and turning. refusing OOB. (14) Anxiety: buspar worked well and w/o side effects continue buspar 5mg BID (15) Acute kidney injury: resolved (16) DVT prophylaxis: markie Will go home tomorrow morning with hospice Admission and Anticipated Discharge Date Admission Date: April 26, 2020 Subjective No complaints, appears comfortable. ROS Constitutional: no chills, aches, sweats or fever Respiratory: no sob,cough, sputum, or wheezing Cardiac: no chest pain, palpitations, edema, orthopnea or lightheadedness GI: no abdominal pain, nausea, vomiting, diarrhea or constipation : no dysuria or hesitancy Extremities: no joint pain or weakness Skin: no rash All other systems reviewed and negative Physical Exam Physical Exam: General: no distress Eyes: normal inspection, PERLL Respiratory: chest non tender, expiratory wheezes/rhonchi bilaterally, no respiratory distress, no accessory muscle use Cardiac: regular rate and rhythm, no rub or gallop, no murmur, no edema, no jvd GI/: active bowel sounds, no abd pain or tenderness, soft, non distended Extremities: normal range of motion, normal strength, non tender Neuro/Psych: alert and oriented x 3, normal mood and affect Skin: normal color, dry Results & Data Results & Data ([facility]) Vital Signs (Past 12 Hours) Vital Signs Temp Pulse Pulse Resp BP Pulse Ox 05/11/20 15:17 36.6 C 108 H 18 144/82 H 97 05/11/20 15:09 107 H 16 98 05/11/20 11:20 108 H 16 98 05/11/20 07:30 95 H 16 98 05/11/20 07:11 36.5 C 89 18 170/89 H 96 PG Care Time/CCT Total # of Minutes Spent Total Time Spent with Patient: Total time spent is greater than 50% in coordination of care (as documented) at patient's floor/unit and/or counseling patient: Coding Level of Care Code 03828 Subseq Hosp Care Lvl 2 Diagnoses Catheter-associated urinary tract infection T83.511A; N39.0 Encounter type: initial encounter Indwelling urinary catheter type: unspecified COPD (chronic obstructive pulmonary disease) J44.1 COPD type: COPD with acute exacerbation Hyperkalemia E87.5 Iron deficiency anemia D50.9 Iron deficiency anemia type: unspecified iron deficiency Fecal impaction K56.41 Weakness R53.1 Anticoagulant long-term use Z79.01 Atrial fibrillation I48.2 Atrial fibrillation type: chronic Chronic respiratory failure with hypoxia J96.11 Chronic kidney disease, stage 3 N18.3 BPH (benign prostatic hyperplasia) N40.1; R33.8 Lower urinary tract symptom presence: symptoms present Lower urinary tract symptom detail: urinary retention Hypertension I10 Hypertension type: essential hypertension Pressure ulcer of unspecified buttock, stage 2 L89.302 Laterality: unspecified laterality Anxiety F41.9 Acute kidney injury N17.9 DVT prophylaxis Z29.9 (1) Catheter-associated urinary tract infection Encounter type: initial encounter Indwelling urinary catheter type: unspecified Qualified Code(s): T83.511A - Infection and inflammatory reaction due to indwelling urethral catheter, initial encounter; N39.0 - Urinary tract infection, site not specified (2) COPD (chronic obstructive pulmonary disease) COPD type: COPD with acute exacerbation Qualified Code(s): J44.1 - Chronic obstructive pulmonary disease with (acute) exacerbation (3) Iron deficiency anemia Iron deficiency anemia type: unspecified iron deficiency Qualified Code(s): D50.9 - Iron deficiency anemia, unspecified (4) Atrial fibrillation Atrial fibrillation type: chronic Qualified Code(s): I48.2 - Chronic atrial fibrillation (5) BPH (benign prostatic hyperplasia) Lower urinary tract symptom presence: symptoms present Lower urinary tract symptom detail: urinary retention Qualified Code(s): N40.1 - Benign prostatic hyperplasia with lower urinary tract symptoms; R33.8 - Other retention of urine (6) Hypertension Hypertension type: essential hypertension Qualified Code(s): I10 - Essential (primary) hypertension (7) Pressure ulcer of unspecified buttock, stage 2 Laterality: unspecified laterality Qualified Code(s): L89.302 - Pressure ulcer of unspecified buttock, stage 2
[2020-05-11] MEDS: ALUMINUM/MAGNESIUM SUSP 30 ML UDC PO PRN (16:18)
[2020-05-11] MEDS ORDERED: MoRPHine SULFATE 2 MG/ML CARP IV PRN (18:00)
[2020-05-11] MEDS: MELATONIN 3 MG TAB PO SCH (22:10)
[2020-05-11] MEDS: OXYCODONE HCL IR 5 MG TAB (IMMEDIATE RELEASE) PO SCH (22:11)
[2020-05-11] MEDS: PRAVASTATIN SOD 20 MG TAB PO SCH (22:11)
[2020-05-12] MEDS: ALBUT/IPRATROP 3MG/0.5MG NEB 3 ML VIAL NEB SCH ×3 (03:21→11:08)
[2020-05-12] MEDS: SODIUM CHLOR 7% 4 ML NEB INH SCH (06:55)
[2020-05-12 06:57] LABS: Creatinine Clr Calc Pharmacy 30.2 ml/min; Est GFR (African American) 40.3; Est GFR (Non-African American) 34.7
[2020-05-12] MEDS: ACETAMINOPHEN 325 MG TAB PO PRN (07:57)
[2020-05-12] MEDS: predniSONE 20 MG TAB PO SCH (07:59)
[2020-05-12] MEDS: FLUTICASONE/VILANTEROL 100/25MCG 14 PUFFS/INHALER INH SCH (07:59)
[2020-05-12] MEDS: guaiFENesin 600 MG TABCR PO SCH (07:59)
[2020-05-12] MEDS: APIXABAN 2.5 MG TAB PO SCH (08:00)
[2020-05-12] MEDS: PANTOprazole 40 MG TAB PO SCH (08:00)
[2020-05-12] MEDS: FOLIC ACID 400 MCG TAB PO SCH (08:00)
[2020-05-12] MEDS: METOPROLOL SUCC 25MG EXT REL TAB PO SCH (08:00)
[2020-05-12] MEDS: CYANOCOBALAMIN 500 MCG TABLET (VITAMIN B-12) PO SCH (08:01)
[2020-05-12] MEDS: FUROSEMIDE 20 MG TAB PO SCH (08:01)
[2020-05-12] MEDS: MONTELUKAST SODIUM 10 MG TABLET PO SCH (08:01)
[2020-05-12] MEDS: FLUTICASONE PROPIONATE NA SPR 16 GM BTL SCH (08:04)
[2020-05-12] MEDS: UMECLIDINIUM BROMIDE 62.5MCG/BLISTER 7 PUFFS/INHALER INH SCH (08:07)
[2020-05-12] MEDS: DOCUSATE SODIUM 100 MG CAP PO SCH (08:09)
[2020-05-12] MEDS: POLYETHYLENE (MIRALAX) 17 GM PACK PO SCH (08:59)
[2020-05-12] MEDS: CHOLECALCIFEROL 1,000 UNITS 25 MCG TAB PO SCH (09:40)
--- NOTE | 2020-05-12 13:24 | Electrocardiogram Report ---
Test Reason : Blood Pressure : / mmHG Vent. Rate : 111 BPM Atrial Rate : 111 BPM P-R Int : 126 ms QRS Dur : 082 ms QT Int : 296 ms P-R-T Axes : 065 -21 055 degrees QTc Int : 402 ms Poor data quality, interpretation may be adversely affected Sinus tachycardia Cannot rule out Anterior infarct , age undetermined Abnormal ECG When compared with ECG of 09-MAY-2020 09:31, Nonspecific T wave abnormality, worse in Lateral leads Confirmed by Mateo Lanza ([id number]) on 05/12/2020 1:24:36 PM Referred By: REFERRED SELF Confirmed By:Denis Lanza
--- NOTE | 2020-05-12 17:45 | Discharge Summary ---
Date of Service May 12, 2020 Admission HPI Per Admitting Provider 85 yo male with history of indwelling tong, with recent admission for UTI and treatment with IV antibiotics up until two weeks ago, comes to the ED c/o not moving his bowels for about 5-7 days. He reports that he was using a stool softener and his stools had been soft and moving regularly. He then stopped the stool softener and only used Miralax. Has not been able to move bowels for 7 days. Says he feels like he has to move them but he cannot. Also, his tong was not draining much urine, this changed over the past 24 hours. He denies any fever or chills. He has been eating and drinking well. He continues to be very weak at home, not very mobile. He lives with his family. He was offered rehab at [facility] for his most recent admission but he refused. He says that rehab is pointless, he will not get any stronger. He was last discharged on 04/05/20 on Ceftazedime for Pseudomonas infection. Also noted to have Ramonita infection, repeat culture on 04/07 still with Ramonita. In the ED vitals were stable, he is on oxygen but wears this chronically. Tong was exchanged and he started making a lot of urine, over a liter already. Received milk of molasses enema but no real BM. CT abdomen/pelvis with fecal retention, some kidney stones but all in the kidney, no acute changes, no bowel obstruction. Labs with WBC of 14k, Hb 10.8, plts 344k, Cr 1.5, similar to levels on prior discharge, actually a little better. UA with > 30WBC, 2+ bacteria. Received Zosyn in the ED. Principal Diagnosis COPD Discharge Exam Constitutional WD/WN, vitals as above Eyes EOM intact bilaterally; no conjunctival abnormality ENMT external ear and nose normal, oropharynx normal Neck trachea midline, no thyromegaly normal visual inspection Respiratory no respiratory distress Auscultation: + diminished lung sounds and + abnormal I/E ratio Cardiovascular RRR, no murmur, no edema Gastrointestinal (Abdomen) Inspection/Auscultation: abdomen normal to inspection; abdomen not distended Musculoskeletal no cyanosis or clubbing, extremities motor strength 5/5 Skin no rashes, warm and dry Neurologic moves all extremities and awake Psychiatric Orientation: alert, oriented to person and cooperative Discharge Data Allergies Allergy/AdvReac Type Severity Reaction Status Date / Time tamsulosin Allergy Unknown Unknown Verified 04/26/20 12:25 cilostazol AdvReac Intermediate dizziness, Verified 04/26/20 12:25 palpitations diltiazem AdvReac Intermediate dizziness, Verified 04/26/20 12:25 palpitations simvastatin AdvReac Mild dizziness Verified 04/26/20 12:25 Consultations 04/26/20 14:29 ED Decision to Admit Stat 04/26/20 19:45 Consult Case Management - Discharge Planning Routine 05/09/20 10:24 Consult Pulmonology Routine 05/09/20 13:16 Consult Palliative Care Routine Ordered Studies 04/26/20 11:30 CT abd pelvis wo con Stat Hospital Course (1) Catheter-associated urinary tract infection: 2nd to pseudomonas. also with ramonita albicans earlier this month. chronic tong -- exchanged in the ED this admission. US guided IV in place; finished 14-day course of IV cefepime/IV antibiotics (day #1 was 04/27). last dose on 05/11/2020. Diflucan completed (2) COPD (chronic obstructive pulmonary disease): with exacerbation CXR 05/08 without pneumonia or acute changes cont prednisone - will taper for home duonebs qid pulmonary toilet Consulted pulmonology - patient with poor prognosis. Recommend limiting how long he is taking steroids given his infection risk and poor wound healing. Flutter valve. Could consider opioids in the future for air hunger. (3) Hyperkalemia: 2nd to mild MOHAN in setting of CKD. resolved. (4) Iron deficiency anemia: s/p Venofer without side effects. he has received 3 serial doses. Hgb stable fecal occult NEGATIVE. (5) Fecal impaction: resolved. cont bowel maintenance. moving bowels well. (6) Weakness: acute/chronic minimal activity at home, but now 2-person assist for transfers and standing Denied [facility], patient refuses to consider snf, will go home on hospice (7) Anticoagulant long-term use: continue eliquis (8) Atrial fibrillation: PAF Heart rate tachycardic but sinus rhythm 05/09, patient without symptoms eliquis beta alan (9) Chronic respiratory failure with hypoxia: 2.5 L at baseline continuously due to COPD CXR with emphysmatous changes, no acute (10) Chronic kidney disease, stage 3: baseline Cr 1.6 to 1.8 - 1.9 today (11) BPH (benign prostatic hyperplasia): not on meds for such BPH cause of chronic tong use?? apparently had what sounds like TURP several years ago and since has had chronic tong (12) Hypertension: cont home meds had been taking daily lasix 20mg at home - resume (13) Pressure ulcer of unspecified buttock, stage 2: b/l buttocks -- POA (present on admission). appreciate wound care nurse consultation. cont local barrier methods and turning. refusing OOB. (14) Anxiety: buspar worked well and w/o side effects continue buspar 5mg BID (15) Acute kidney injury: resolved (16) DVT prophylaxis: markie Will go home tomorrow morning with hospice Total Time Total Time Spent Total Time Spent (In Minutes): 35 Discharge Plan Discharge Items Patient Disposition: Hospice - Home Reason For Visit: UTI,COMPLICATED,CONSTIPATION Discharge Diagnosis: UTI, COPD Condition on Discharge: Good Activity: Resume your previous activity Non-emergency contact: Primary Care Provider Call non-emergency contact if: you have any medication questions Follow-up/Referrals: Guerrero Morse MD [Primary Care Provider] - Diet: Regular Addtl Attending Provider Instructions: (1) Catheter-associated urinary tract infection: Your tong catheter was exchanged in the ED this admission. You completed a course of antifungals (Diflucan) and a course of antibiotics (cefepime) (2) COPD (chronic obstructive pulmonary disease): with exacerbation A chest Xray was performed 05/08 without pneumonia or acute changes You will continue a prednisone taper - 30 mg for 3 days, 20 mg for 3 days and then 10 mg for 3 days (3) Iron deficiency anemia: You recieved Venofer (IV iron) for 3 doses while here (4) Anxiety: You were initiated on buspirone and a prescription was sent to your pharmacy to continue Pending Studies at Discharge: No Stand-Alone Forms: My [facility] Medications and DC Order Prescriptions: New buspirone 5 mg Tablet 5 mg PO BID Qty: 60 RF: 0 furosemide 20 mg Tablet 20 mg PO QAM Qty: 30 RF: 0 prednisone 20 mg tablet 20 mg PO DAILY Qty: 9 RF: 0 Continued pravastatin 20 mg tablet 20 mg PO QPM Qty: 90 RF: 3 ipratropium-albuterol 0.5 mg-3 mg(2.5 mg base)/3 mL solution for nebulization 3 ml Inhalation TID Qty: 180 RF: 5 nitrofurantoin macrocrystal 50 mg capsule 50 mg PO QAM Qty: 30 RF: 5 sodium chloride 7 % solution for nebulization 4 ml INH BID Qty: 240 RF: 2 potassium chloride 10 mEq capsule, extended release 10 meq PO Q2D Qty: 30 RF: 3 tiotropium bromide [Spiriva Respimat] 2.5 mcg/actuation mist 2 puffs inhalation DAILY Qty: 4 RF: 1 Eliquis 2.5 mg tablet 2.5 mg PO BID Qty: 180 RF: 1 montelukast 10 mg tablet 10 mg PO QAM Qty: 90 RF: 1 folic acid 800 mcg Tablet 800 mcg PO QAM RF: 0 lorazepam 0.5 mg tablet 0.5 mg PO DAILY PRN (Reason: Anxiety) RF: 0 oxycodone 5 mg tablet 5 mg PO HS RF: 0 melatonin 10 mg Tablet 10 mg PO HS RF: 0 Dulera 200-5 mcg/actuation HFA aerosol inhaler 1 puff INHALATION BID RF: 0 metoprolol succinate 50 mg tablet extended release 24 hr 75 mg PO DAILY RF: 0 albuterol sulfate 90 mcg/actuation HFA aerosol inhaler 2 puff inhalation QID PRN (Reason: Shortness Of Breath Or Wheezing) RF: 0 cholecalciferol (vitamin D3) [Vitamin D3] 2,000 unit capsule 2,000 units PO QAM RF: 0 cyanocobalamin (vitamin B-12) 1,000 mcg capsule 1,000 mcg PO QAM RF: 0 Discontinued furosemide 40 mg tablet See Rx Instructions .ROUTE .COMPLEX Qty: 30 RF: 5 Discharge Orders: Discharge Order (Routine); Ordered 05/12/20 Ordered By: Aj Stevens/Other Patient Handouts: Prednisone tablets Admission Data Admit Date/Time: 04/26/20 16:29 Attending Provider: Aj Garcia Admit Provider: Delio Vasquez Primary Care Provider: Guerrero Morse Other Providers: Kevin Cruz ; [place] ; [facility] ; Haim Haddad ; Michell Thurman Other Interventions: Discharge Summary Assessment (RN) Last Done: 05/12/20 10:25 DC Date/Time DO NOT enter until pt leaves facility: 05/12/20 14:11 Coding Level of Care Code D/C Day Management >30 mins Diagnoses Catheter-associated urinary tract infection T83.511A; N39.0 Encounter type: initial encounter Indwelling urinary catheter type: unspecified COPD (chronic obstructive pulmonary disease) J44.1 COPD type: COPD with acute exacerbation Hyperkalemia E87.5 Iron deficiency anemia D50.9 Iron deficiency anemia type: unspecified iron deficiency Fecal impaction K56.41 Weakness R53.1 Anticoagulant long-term use Z79.01 Atrial fibrillation I48.2 Atrial fibrillation type: chronic Chronic respiratory failure with hypoxia J96.11 Chronic kidney disease, stage 3 N18.3 BPH (benign prostatic hyperplasia) N40.1; R33.8 Lower urinary tract symptom presence: symptoms present Lower urinary tract symptom detail: urinary retention Hypertension I10 Hypertension type: essential hypertension Pressure ulcer of unspecified buttock, stage 2 L89.302 Laterality: unspecified laterality Anxiety F41.9 Acute kidney injury N17.9 DVT prophylaxis Z29.9
== END 2020-05-12 14:11 | disposition hospice, home (50) | DRG 699 ==
LOC: ED 11:06 → 2W 16:29 → SUATTDRO 16:29 → 2W 19:08 → 3N 04-29 08:03

== ENCOUNTER 2020-10-30 12:17 | Inpatient (IN) ==
[2020-10-30] MEDS ORDERED: ALBUT/IPRATROP 3MG/0.5MG NEB 3 ML VIAL INH STA (12:38)
--- NOTE | 2020-10-30 12:45 | Emergency Department Note ---
Impression & Plan SOB (shortness of breath), Pneumonia, Atrial fibrillation, Leukocytosis ED Provider Note NAME: BHARATH ANAND AGE: 85 SEX: M : 1935 ARRIVES VIA: Ambulance INFORMANT: [Patient][ems, nurses] ED PROVIDER(S): [Vidal Wild MD] CHIEF COMPLAINT: Short of breath HISTORY OF PRESENT ILLNESS: The patient is an 85-year-old male who presents by EMS for dyspnea. He states he has been somewhat short of breath for a few days, the notes that came with him state he got much worse last night. Patient states his dyspnea is worse with any exertion or activity. Patient denies any increased cough. There has been no fever, no known Covid exposures. He has no chest pain. Patient has not had vomiting or diarrhea. He does carry history of COPD and, wears 2 to 3 L of oxygen at all times. He is on Eliquis for chronic A. fib. Of note, he is a DNR. REVIEW OF SYSTEMS: See HPI for pertinent positives and negatives. A total of ten systems were reviewed and were otherwise negative. PMHx/PSHx: See Below SOCIAL HISTORY: See Below. PHYSICAL EXAM: GENERAL: Patient is in no acute distress. HEENT: No acute trauma, normocephalic atraumatic, mucous membranes moist, no nasal congestion, no scleral icterus. NECK: No stridor, no adenopathy, no meningismus, trachea is midline. LUNGS: Wheezing bilaterally. He does have a slightly increased respiratory rate. No accessory muscle use, he speaks in full sentences. Patient does have crackles to the lower right lung and the entire left lung. HEART: No murmurs, slightly tachycardic with an irregular rhythm. ABDOMEN: Soft, nontender, bowel sounds positive, no hernias, no peritonitis. Somewhat distended. EXTREMITIES: No cyanosis, full range of motion of all the joints without pain or difficulty, no signs for acute trauma. NEUROLOGIC: Oriented x 3, no acute motor or sensory deficits, no focal weakness. SKIN: No rash, no jaundice, no diaphoresis. DIFFERENTIAL DIAGNOSIS: Reactive airway disease, pneumonia, pneumothorax, COPD, COVID-19, influenza, CHF, infection, cardiac ischemia, pulmonary embolism, bronchitis, musculoskeletal, gastrointestinal, as well as other pathologies. EMERGENCY DEPARTMENT COURSE/PROCEDURES: ECG: Indication was shortness of breath. The ECG shows atrial fibrillation with some diffuse nonspecific ST change. The rate is 107. The QTc is 411. 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 No PVCs. No ST elevation. Continuous Cardiac Monitoring: An order was placed for continuous cardiac monitoring. The monitor shows a rate of 98 with atrial fibrillation. MEDICAL DECISION MAKING: There is a significant leukocytosis at 19,000, this would be consistent with infection. A mild anemia was noted. There was a normal platelet count. No worrisome coagulopathy. Creatinine was elevated but this appears baseline looking back at previous testing. Lactic acid level was slightly elevated consistent with infection. No liver enzyme elevation. BNP was elevated consistent with potential fluid overload. Chest film shows what appears to be a left-sided pneumonia, no true findings of CHF. Covid testing returned negative. The patient received IV Zosyn as antibiotic coverage. He received a DuoNeb. The patient presents with increasing dyspnea. Exam findings were consistent with potential pneumonia versus CHF. Laboratory work-up and imaging suggest pn eumonia as a cause for his issues. The patient is in need of a hospital stay. I did speak with case management, the on-call hospitalist has been consulted. The patient is aware of all his findings and is currently resting comfortably. Past Med/Surg History Medical History Actinic keratosis Acute on chronic respiratory failure with hypoxia Anemia Ankle edema, bilateral Pt admits to eating salty snacks lately. Advised to avoid salt. 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 Initially in RVR, but spontaneously converted; started on Metoprolol and Eliquis. Eliquis discontinued during admission 03/08/19 due to hematuria. Pulmonary emphysema Pulmonary nodule Sinus tachycardia UTI (urinary tract infection) Vitamin D deficiency Weight loss Surgical History History of appendectomy History of colonoscopy History of cystoscopy WITH STENT, during admission 03/2019 History of lithotripsy History of tonsillectomy Hx of transurethral resection of prostate Family History Mother Cancer thyroid Brother Myocardial infarction Prostate cancer Father No problems noted. Other Family history non-contributory No significant family history Denies family history of Stroke Social History Smoking Status: Former smoker Cigarettes Per Day: 20; Second Hand Exposure: No; Do You Dip or Chew Tobacco: No; Tobacco Cessation Education Requested by Patient: No Hx Alcohol Use: No Hx Substance Use: No Preferred Language: Kyrgyz Communication Ability: Effective Lozenge Dough Mixer Required: No Beliefs That Will Affect Care: None marital status: Current Living Situation: Spouse and Family Current Living Situation Comment: currently has home health services current occupational status: retired Other Information That Helps Us Care for You: No Feels Safe at Home: Yes Safety Concerns: Feels Safe At This Time Seatbelt Use: always Sunscreen Use: Yes Assistive Devices: None Assistive Devices Comment: no dentures/no glasse/ no hearing aids on admit to 256-2 Allergies Allergies Allergy/AdvReac Type Severity Reaction Status Date / Time tamsulosin Allergy Unknown Unknown Verified 10/30/20 14:16 cilostazol AdvReac Intermediate dizziness, Verified 10/30/20 14:16 palpitations diltiazem AdvReac Intermediate dizziness, Verified 10/30/20 14:16 palpitations simvastatin AdvReac Mild dizziness Verified 10/30/20 14:16 Home Meds Home Medications Medication Instructions Recorded Confirmed cholecalciferol (vitamin D3) 2,000 units PO QAM 10/03/19 10/30/20 [Vitamin D3] cyanocobalamin (vitamin B-12) 1,000 mcg PO QAM 10/03/19 10/30/20 folic acid 800 mcg PO QAM 03/31/20 10/30/20 lorazepam 0.5 mg PO DAILY PRN 03/31/20 10/30/20 melatonin 10 mg PO HS 03/31/20 10/30/20 Dulera 1 puff INHALATION BID 04/26/20 10/30/20 metoprolol succinate 75 mg PO DAILY 04/26/20 10/30/20 furosemide 20 mg PO Q2D 10/30/20 10/30/20 trazodone 50 mg PO HS 10/30/20 10/30/20 Previous Rx's Medication Instructions Recorded sodium chloride 7 % for 4 ml INH BID #240 ml 02/23/20 nebulization potassium chloride 10 mEq 10 meq PO Q2D #30 cap 03/09/20 capsule,extended release apixaban 2.5 mg tablet 2.5 mg PO BID #180 tab 04/17/20 montelukast 10 mg tablet 10 mg PO QAM #90 tab 05/08/20 miscellaneous medical supply #1 ea 05/17/20 albuterol sulfate 90 mcg/actuation 2 puff INHALATION QID PRN #18 g 06/07/20 aerosol inhaler tiotropium bromide 2.5 2 puff INHALATION DAILY #4 ml 06/08/20 mcg/actuation mist for inhalation pravastatin 20 mg tablet 20 mg PO QPM #90 tab 07/18/20 buspirone 5 mg tablet 5 mg PO BID #60 tab 07/19/20 prednisone 10 mg tablet 10 mg PO QAM #90 tab 07/19/20 ipratropium 0.5 mg-albuterol 3 mg 3 ml INHALATION TID #180 ml 07/20/20 (2.5 mg base)/3 mL nebulization soln nitrofurantoin macrocrystal 50 mg 50 mg PO QAM #30 cap 08/07/20 capsule oxycodone 5 mg tablet 5 mg PO HS #30 tab 10/26/20 Results & Data (ED) Vital Signs Vital Signs - 24 hr 10/30/20 12:34 10/30/20 12:37 10/30/20 12:41 Temperature 36.6 C Temperature Source Rectal Pulse Rate 113 H 66 103 H Pulse Rate [Left Finger] Pulse Rate from SpO2 Sensor 93 H 96 H Respiratory Rate 22 26 H 20 Respiratory Effort / Characteristics Blood Pressure 113/78 110/74 Blood Pressure [Left Arm] Blood Pressure Mean 89 86 Blood Pressure Mean [Left Arm] Pulse Oximetry 87 L 97 96 Oxygen Delivery Method Nasal Cannula Oxygen Flow Rate 3 Sepsis Recent Fever Within 48 Hours No Sepsis New/Unexplained Change in Mental Status N/A Sepsis Action Taken by Nursing No Action Required 10/30/20 12:50 10/30/20 12:57 10/30/20 13:00 Temperature Temperature Source Pulse Rate 132 H 106 H Pulse Rate [Left Finger] 109 H Pulse Rate from SpO2 Sensor 119 H 110 H Respiratory Rate 18 20 28 H Respiratory Effort / Characteristics Non-Labored Spontaneous Blood Pressure 98/76 L Blood Pressure [Left Arm] Blood Pressure Mean 83 Blood Pressure Mean [Left Arm] Pulse Oximetry 83 L 97 97 Oxygen Delivery Method Nasal Cannula Oxygen Flow Rate 3 Sepsis Recent Fever Within 48 Hours Sepsis New/Unexplained Change in Mental Status Sepsis Action Taken by Nursing 10/30/20 13:01 10/30/20 13:11 10/30/20 13:20 Temperature Temperature Source Pulse Rate 102 H 105 H 111 H Pulse Rate [Left Finger] Pulse Rate from SpO2 Sensor 105 H 109 H Respiratory Rate 22 8 L 21 Respiratory Effort / Characteristics Blood Pressure Blood Pressure [Left Arm] Blood Pressure Mean Blood Pressure Mean [Left Arm] Pulse Oximetry 93 89 L Oxygen Delivery Method Oxygen Flow Rate Sepsis Recent Fever Within 48 Hours Sepsis New/Unexplained Change in Mental Status Sepsis Action Taken by Nursing 10/30/20 13:30 10/30/20 13:31 10/30/20 13:40 Temperature Temperature Source Pulse Rate 117 H 122 H 123 H Pulse Rate [Left Finger] Pulse Rate from SpO2 Sensor 145 H 137 H Respiratory Rate 16 26 H 21 Respiratory Effort / Characteristics Blood Pressure 106/80 Blood Pressure [Left Arm] Blood Pressure Mean 88 Blood Pressure Mean [Left Arm] Pulse Oximetry 79 L 76 L Oxygen Delivery Method Oxygen Flow Rate Sepsis Recent Fever Within 48 Hours Sepsis New/Unexplained Change in Mental Status Sepsis Action Taken by Nursing 10/30/20 13:50 10/30/20 14:00 10/30/20 14:01 Temperature Temperature Source Pulse Rate 103 H 118 H 109 H Pulse Rate [Left Finger] Pulse Rate from SpO2 Sensor 164 H 224 H Respiratory Rate 25 H 24 28 H Respiratory Effort / Characteristics Blood Pressure 116/86 Blood Pressure [Left Arm] Blood Pressure Mean 96 Blood Pressure Mean [Left Arm] Pulse Oximetry 88 L 83 L Oxygen Delivery Method Oxygen Flow Rate Sepsis Recent Fever Within 48 Hours Sepsis New/Unexplained Change in Mental Status Sepsis Action Taken by Nursing 10/30/20 14:10 10/30/20 14:20 10/30/20 14:29 Temperature Temperature Source Pulse Rate 97 H 114 H Pulse Rate [Left Finger] 105 H Pulse Rate from SpO2 Sensor Respiratory Rate 18 17 20 Respiratory Effort / Characteristics Blood Pressure Blood Pressure [Left Arm] 116/86 Blood Pressure Mean Blood Pressure Mean [Left Arm] 96 Pulse Oximetry 75 L 96 Oxygen Delivery Method Nasal Cannula Oxygen Flow Rate 3 Sepsis Recent Fever Within 48 Hours Sepsis New/Unexplained Change in Mental Status Sepsis Action Taken by Nursing 10/30/20 14:30 10/30/20 14:34 10/30/20 14:40 Temperature Temperature Source Pulse Rate 102 H 102 H 113 H Pulse Rate [Left Finger] Pulse Rate from SpO2 Sensor 87 Respiratory Rate 25 H 23 17 Respiratory Effort / Characteristics Blood Pressure 83/65 L Blood Pressure [Left Arm] Blood Pressure Mean 71 Blood Pressure Mean [Left Arm] Pulse Oximetry 96 Oxygen Delivery Method Oxygen Flow Rate Sepsis Recent Fever Within 48 Hours Sepsis New/Unexplained Change in Mental Status Sepsis Action Taken by Nursing 10/30/20 14:50 10/30/20 15:00 10/30/20 15:01 Temperature Temperature Source Pulse Rate 115 H 105 H 105 H Pulse Rate [Left Finger] Pulse Rate from SpO2 Sensor Respiratory Rate 22 23 22 Respiratory Effort / Characteristics Blood Pressure 110/73 Blood Pressure [Left Arm] Blood Pressure Mean 85 Blood Pressure Mean [Left Arm] Pulse Oximetry Oxygen Delivery Method Oxygen Flow Rate Sepsis Recent Fever Within 48 Hours Sepsis New/Unexplained Change in Mental Status Sepsis Action Taken by Nursing 10/30/20 15:10 Temperature Temperature Source Pulse Rate 110 H Pulse Rate [Left Finger] Pulse Rate from SpO2 Sensor Respiratory Rate 21 Respiratory Effort / Characteristics Blood Pressure Blood Pressure [Left Arm] Blood Pressure Mean Blood Pressure Mean [Left Arm] Pulse Oximetry Oxygen Delivery Method Oxygen Flow Rate Sepsis Recent Fever Within 48 Hours Sepsis New/Unexplained Change in Mental Status Sepsis Action Taken by Detention Medications Current Medication List: was personally reviewed by me Laboratory Data Attestation: I reviewed the patient's lab results. Result diagrams: 10/30/20 12:34 10/30/20 12:34 Lab Results 10/30/20 10/30/20 10/30/20 Range/Units 12:34 12:34 12:34 WBC 19.25 H (4.8-10.8) K/uL RBC 3.38 L (4.7-6.1) M/uL Hgb 11.8 L (14.0-18.0) g/dL Hct 36.3 L (42-52) % MCV 107.4 H (80-100) fL MCH 34.9 H (25-34) pg MCHC 32.5 (32-36) g/dL RDW Std Deviation 67.5 H (36.4-46.3) fL RDW Coeff of Ashley 17.0 H (11.5-14.5) % Plt Count 345 (130-400) K/uL MPV 9.8 (7.4-10.4) fL Immature Gran % (Auto) 0.8 % Neut % (Auto) 91.1 % Lymph % (Auto) 3.7 % Blackford % (Auto) 4.2 % Eos % (Auto) 0.1 % Baso % (Auto) 0.1 % Neut # (Auto) 17.54 H (1.4-6.5) K/uL Lymph # (Auto) 0.72 L (1.2-3.4) K/uL Blackford # (Auto) 0.80 H (0.11-0.59) K/uL Eos # (Auto) 0.02 (0-0.5) K/uL Baso # (Auto) 0.01 (0-0.2) K/uL Immature Gran # (Auto) 0.16 H (0.00-0.02) K/uL PT 13.0 H (9.0-12.0) Seconds INR 1.2 H (0.9-1.1) APTT 34.5 H (21.0-31.0) Seconds PTT Ratio 1.2 Sodium 138 (136-145) mmol/L Potassium 4.9 (3.5-5.1) mmol/L Chloride 110 H (98-107) mmol/L Carbon Dioxide 23 (21-32) mmol/L Anion Gap 5.0 (3-11) BUN 47 H (7-18) mg/dl Creatinine 1.71 H (0.6-1.4) mg/dl Est Cr Clr Drug Dosing 29.0 ml/min Est GFR ( Amer) 41.4 Est GFR (Non-Af Amer) 35.7 BUN/Creatinine Ratio 27.7 H (10-20) Glucose 110 H (70-99) mg/dl Lactate (0.4-2.0) mmol/L Calcium 8.9 (8.5-10.1) mg/dl Magnesium 2.2 (1.8-2.4) mg/dl Total Bilirubin 0.5 (0.2-1) mg/dl AST 13 L (15-37) U/L ALT 20 (12-78) U/L Alkaline Phosphatase 101 (45-117) U/L Troponin I < 0.015 (0-0.045) ng/ml NT-Pro-B Natriuret Pep 2639 H (0-1800) pg/ml Total Protein 6.9 (6.4-8.2) gm/dl Albumin 2.8 L (3.4-5.0) gm/dl Globulin 4.1 H (2.5-4.0) gm/dl Albumin/Globulin Ratio 0.7 L (0.9-2) COVID-19 Eval Order SARS-CoV-2, RNA, NAAT (NEGATIVE) 10/30/20 10/30/20 10/30/20 Range/Units 12:50 12:50 14:10 WBC (4.8-10.8) K/uL RBC (4.7-6.1) M/uL Hgb (14.0-18.0) g/dL Hct (42-52) % MCV (80-100) fL MCH (25-34) pg MCHC (32-36) g/dL RDW Std Deviation (36.4-46.3) fL RDW Coeff of Ashley (11.5-14.5) % Plt Count (130-400) K/uL MPV (7.4-10.4) fL Immature Gran % (Auto) % Neut % (Auto) % Lymph % (Auto) % Blackford % (Auto) % Eos % (Auto) % Baso % (Auto) % Neut # (Auto) (1.4-6.5) K/uL Lymph # (Auto) (1.2-3.4) K/uL Blackford # (Auto) (0.11-0.59) K/uL Eos # (Auto) (0-0.5) K/uL Baso # (Auto) (0-0.2) K/uL Immature Gran # (Auto) (0.00-0.02) K/uL PT (9.0-12.0) Seconds INR (0.9-1.1) APTT (21.0-31.0) Seconds PTT Ratio Sodium (136-145) mmol/L Potassium (3.5-5.1) mmol/L Chloride (98-107) mmol/L Carbon Dioxide (21-32) mmol/L Anion Gap (3-11) BUN (7-18) mg/dl Creatinine (0.6-1.4) mg/dl Est Cr Clr Drug Dosing ml/min Est GFR ( Amer) Est GFR (Non-Af Amer) BUN/Creatinine Ratio (10-20) Glucose (70-99) mg/dl Lactate 2.1 H* (0.4-2.0) mmol/L Calcium (8.5-10.1) mg/dl Magnesium (1.8-2.4) mg/dl Total Bilirubin (0.2-1) mg/dl AST (15-37) U/L ALT (12-78) U/L Alkaline Phosphatase (45-117) U/L Troponin I (0-0.045) ng/ml NT-Pro-B Natriuret Pep (0-1800) pg/ml Total Protein (6.4-8.2) gm/dl Albumin (3.4-5.0) gm/dl Globulin (2.5-4.0) gm/dl Albumin/Globulin Ratio (0.9-2) COVID-19 Eval Order Covid19 IDNow [facility] SARS-CoV-2, RNA, NAAT NEGATIVE (NEGATIVE) Administered Medications Discontinued Medications Albuterol (Albut/Ipratrop 3mg/0.5mg Neb 3 Ml Vial) 3 ml INH NOW STA Stop: 10/30/20 12:39 Last Admin: 10/30/20 12:57 Dose: 3 ml Documented by: [id number] Piperacillin Sod/Tazobactam Sod (Zosyn) 4.5 gm in 120 mls @ 240 mls/hr IV NOW ONE Stop: 10/30/20 14:30 Last Infusion: 10/30/20 15:09 Dose: 0 mls/hr Documented by: [id number] Admin: 10/30/20 14:27 Dose: 240 mls/hr Documented by: [id number] Imaging Data Radiologist's Impression: XR chest 1V portable HISTORY: 85 years-old Male SOB acute shortness of breath. COMPARISON: Chest radiograph 05/08/2020 TECHNIQUE: Portable supine AP view of the chest FINDINGS: Cardiac silhouette is moderately enlarged. Chronic interstitial coarsening. There are new patchy airspace opacities noted throughout the left lung. Calcified plaque of the thoracic aorta. No pneumothorax. Mild blunting of the costophrenic angles. Emphysema. Healed chronic fracture of the lateral left seventh rib. Degenerative changes of the shoulders and spine. IMPRESSION: 1. New patchy airspace opacities throughout the left lung are suspicious for probable pneumonia. 2. Emphysema with chronic interstitial coarsening. 3. Cardiomegaly. Discharge Plan Visit Data Chief Complaint: Shortness of Breath/Dyspnea ED Provider: Vidal Wild Discharge Problem: SOB (shortness of breath), Pneumonia, Atrial fibrillation, Leukocytosis Patient Disposition: Admitted As Inpatient Condition: Fair Discharge Instructions Interventions: ED Discharge Assessment Last Done: 10/30/20 16:09 Discharge Problem: Pneumonia Qualifiers: Pneumonia type: due to unspecified organism Laterality: left Lung location: unspecified part of lung Qualified Code(s): J18.9 - Pneumonia, unspecified organism Atrial fibrillation Qualifiers: Atrial fibrillation type: unspecified Qualified Code(s): I48.91 - Unspecified atrial fibrillation Leukocytosis Qualifiers: Leukocytosis type: unspecified Qualified Code(s): D72.829 - Elevated white blood cell count, unspecified
[2020-10-30 12:53] LABS: Basophils # (auto) 0.01 K/uL (0-0.2); Basophils % (auto) 0.1 %; Eosinophils # (auto) 0.02 K/uL (0-0.5); Eosinophils % (auto) 0.1 %; Hematocrit (blood only) 36.3 % (42-52); Hemoglobin 11.8 g/dL (14.0-18.0); Immature Granulocytes # (auto) 0.16 K/uL (0.00-0.02); Immature Granulocytes % (auto) 0.8 %; Lymphocytes # (auto) 0.72 K/uL (1.2-3.4); Lymphocytes % (auto) 3.7 %; Mean Corpuscular Hemoglobin 34.9 pg (25-34); Mean Corpuscular Hgb Conc 32.5 g/dL (32-36); Mean Corpuscular Volume 107.4 fL (80-100); Mean Platelet Volume 9.8 fL (7.4-10.4); Monocytes % (auto) 4.2 %; Neutrophils # (auto) 17.54 K/uL (1.4-6.5); Neutrophils % (auto) 91.1 %; Platelet Count 345 K/uL (130-400); RDW Standard Deviation 67.5 fL (36.4-46.3); Red Blood Count 3.38 M/uL (4.7-6.1); White Blood Count 19.25 K/uL (4.8-10.8)
[2020-10-30 13:06] LABS: INR 1.2 (0.9-1.1); Partial Thromboplastin Ratio 1.2; Partial Thromboplastin Time 34.5 Seconds (21.0-31.0)
[2020-10-30 13:09] LABS: Alanine Aminotransferase 20 U/L (12-78); Albumin Level 2.8 gm/dl (3.4-5.0); Aspartate Aminotransferase 13 U/L (15-37); BUN Creatinine Ratio 27.7 (10-20); Blood Urea Nitrogen 47 mg/dl (7-18); Calcium 8.9 mg/dl (8.5-10.1); Carbon Dioxide 23 mmol/L (21-32); Chloride 110 mmol/L (98-107); Est GFR (African American) 41.4; Est GFR (Non-African American) 35.7; Glucose 110 mg/dl (70-99); Magnesium 2.2 mg/dl (1.8-2.4); Potassium 4.9 mmol/L (3.5-5.1); Sodium 138 mmol/L (136-145)
--- NOTE | 2020-10-30 13:13 | XRay Report ---
XR chest 1V portable HISTORY: 85 years-old Male SOB acute shortness of breath. COMPARISON: Chest radiograph 05/08/2020 TECHNIQUE: Portable supine AP view of the chest FINDINGS: Cardiac silhouette is moderately enlarged. Chronic interstitial coarsening. There are new patchy airs pace opacities noted throughout the left lung. Calcified plaque of the thoracic aorta. No pneumothora x. Mild blunting of the costophrenic angles. Emphysema. Healed chronic fracture of the lateral left s eventh rib. Degenerative changes of the shoulders and spine. IMPRESSION: 1. New patchy airspace opacities throughout the left lung are suspicious for probable pneumonia. 2. Emphysema with chronic interstitial coarsening. 3. Cardiomegaly. ACT 112: Negative or not required by law. The above report was generated using voice recognition software. It may contain grammatical, syntax o r spelling errors. Electronically signed by: Lul Rendon M.D. 10/30/2020 1:12 PM
[2020-10-30 13:15] LABS: Albumin Globulin Ratio 0.7 (0.9-2); Alkaline Phosphatase 101 U/L (45-117); Bilirubin,Total 0.5 mg/dl (0.2-1); Globulin 4.1 gm/dl (2.5-4.0); NT Pro B Type Natriuretic Pept 2639 pg/ml (0-1800); Total Protein 6.9 gm/dl (6.4-8.2); Troponin I < 0.015 ng/ml (0-0.045)
[2020-10-30] MEDS ORDERED: PIPERACILL/TAZOBAC CONSULT ACTIVE PRN ×2 (14:01→17:40)
[2020-10-30] MEDS ORDERED: PIPERACILLIN/TAZOBACTAM 4.5 GM/120 ML BAG IV ONE (14:01)
--- NOTE | 2020-10-30 15:47 | History & Physical Report ---
Date of Service October 30, 2020 Assessment & Plan (1) Pneumonia: Mr. Garcia is an 85-year-old male with a history of Chronic Diastolic CHF, Hypertension, Dyslipidemia, Atrial Fibrillation (on Eliquis), Chronic Indwelling Venegas, Benign Prostatic Hypertrophy, Significant COPD(on supplemental O2 2-3 L/min and prednisone), remote history of Tobacco Use, Type 2 DM, Vitamin D Deficiency, CKD Stage III, and Anemia -- who presented to [facility] ER today with an Acute Left-sided Pneumonia. He describes worsening SOB over the past few days, and his SOB became much worse last night, and his dyspnea is worse with any exertion or activity. He has expectorated some brownish sputum and admits to wheezing. Patient denies any cough, fever, chills, headache, stiff neck, chest discomfort, or pleuritic pain. He denies any known COVID-19 exposures. His appetite has been stable, and he denies any vomiting or diarrhea. He denies orthopnea or PND. Patient denies any syncope or near-syncope. Patient specifically denies any chest heaviness, tightness, pressure, or discomfort. He denies any exertional neck, jaw, back, or arm pain. He denies any palpitations. Patient has not had any signs or symptoms suggestive of stroke or mini stroke. Patient has an indwelling Venegas catheter. He denies any urinary symptoms but feels his urinary output may be a bit less than usual. CXR shows new patchy airspace opacities throughout the left lung suspicious for pneumonia, emphysema with chronic interstitial coarsening, and cardiomegaly. He has an elevated WBC# with a leftward shift. He is in A-Fib with a mildly elevated V-rate. -- Admit to Med-Surg with telemetry. -- Convert to IV Methylprednisolone. -- IV Zosyn 3.375 Q8H. -- Continue supplemental O2. -- Continue inhalers as directed. -- Duoneb nebulizer treatments. -- Incentive spirometry. -- SARS CoV2 is Negative. (2) COPD (chronic obstructive pulmonary disease): -- As outlined above. (3) Chronic respiratory failure with hypoxia: -- Severe O2 dependent COPD. -- On chronic O2. -- Currently SpO2 levels in the mid 90"s. (4) Atrial fibrillation: -- Continue Eliquis 2.5 mg b.i.d.. -- Continue Toprol XL 75 mg daily. -- If V-rates start climbing would add prn Lopressor or Diltiazem. (5) Chronic anticoagulation: -- For A-Fib. -- No bleeding complications. -- Continue Eliquis 2.5 mg b.i.d.. History of Present Illness Chief Complaint: -- SOB secondary to Pneumonia. Primary Care Provider: Mateo Morse MD Mr. Garcia is an 85-year-old male with a history of Chronic Diastolic CHF, Hypertension, Dyslipidemia, Atrial Fibrillation (on Eliquis), Chronic Indwelling Venegas, Benign Prostatic Hypertrophy, Significant COPD(on supplemental O2 2-3 L/min and prednisone), remote history of Tobacco Use, Type 2 DM, Vitamin D Deficiency, CKD Stage III, and Anemia -- who presented to [facility] ER today with worsening SOB over the past few days, and his SOB became much worse last night -- his dyspnea is worse with any exertion or activity. He has expectorated some brownish sputum and admits to wheezing. Patient denies any cough, fever, chills, headache, stiff neck, chest discomfort, or pleuritic pain. He denies any known COVID-19 exposures. His appetite has been stable, and he denies any vomiting or diarrhea. He denies orthopnea or PND. Patient denies any syncope or near-syncope. Patient specifically denies any chest heaviness, tightness, pressure, or discomfort. He denies any exertional neck, jaw, back, or arm pain. He denies any palpitations. Patient has not had any signs or symptoms suggestive of stroke or mini stroke. Patient has an indwelling Venegas catheter. He denies any urinary symptoms but feels his urinary output may be a bit less than usual. Allergies Allergy/AdvReac Type Severity Reaction Status Date / Time tamsulosin Allergy Unknown Unknown Verified 10/30/20 14:16 cilostazol AdvReac Intermediate dizziness, Verified 10/30/20 14:16 palpitations diltiazem AdvReac Intermediate dizziness, Verified 10/30/20 14:16 palpitations simvastatin AdvReac Mild dizziness Verified 10/30/20 14:16 Home Medications Medication Instructions Recorded Confirmed Type cholecalciferol (vitamin D3) 2,000 units PO QAM 10/03/19 10/30/20 History [Vitamin D3] cyanocobalamin (vitamin B-12) 1,000 mcg PO QAM 10/03/19 10/30/20 History sodium chloride 7 % for 4 ml INH BID #240 ml 02/23/20 10/30/20 Rx nebulization potassium chloride 10 mEq 10 meq PO Q2D #30 cap 03/09/20 10/30/20 Rx capsule,extended release folic acid 800 mcg PO QAM 03/31/20 10/30/20 History lorazepam 0.5 mg PO DAILY PRN 03/31/20 10/30/20 History melatonin 10 mg PO HS 03/31/20 10/30/20 History apixaban 2.5 mg tablet 2.5 mg PO BID #180 tab 04/17/20 10/30/20 Rx Dulera 1 puff INHALATION BID 04/26/20 10/30/20 History metoprolol succinate 75 mg PO DAILY 04/26/20 10/30/20 History montelukast 10 mg tablet 10 mg PO QAM #90 tab 05/08/20 10/30/20 Rx miscellaneous medical supply #1 ea 05/17/20 07/10/20 Rx albuterol sulfate 90 mcg/actuation 2 puff INHALATION QID PRN #18 g 06/07/20 10/30/20 Rx aerosol inhaler tiotropium bromide 2.5 2 puff INHALATION DAILY #4 ml 06/08/20 10/30/20 Rx mcg/actuation mist for inhalation pravastatin 20 mg tablet 20 mg PO QPM #90 tab 07/18/20 10/30/20 Rx buspirone 5 mg tablet 5 mg PO BID #60 tab 07/19/20 10/30/20 Rx prednisone 10 mg tablet 10 mg PO QAM #90 tab 07/19/20 10/30/20 Rx ipratropium 0.5 mg-albuterol 3 mg 3 ml INHALATION TID #180 ml 07/20/20 10/30/20 Rx (2.5 mg base)/3 mL nebulization soln nitrofurantoin macrocrystal 50 mg 50 mg PO QAM #30 cap 08/07/20 10/30/20 Rx capsule oxycodone 5 mg tablet 5 mg PO HS #30 tab 10/26/20 10/30/20 Rx furosemide 20 mg PO Q2D 10/30/20 10/30/20 History trazodone 50 mg PO HS 10/30/20 10/30/20 History Past Med/Surg History Medical History Actinic keratosis Acute on chronic respiratory failure with hypoxia Anemia Ankle edema, bilateral Pt admits to eating salty snacks lately. Advised to avoid salt. Asthma Benign prostatic hyperplasia with urinary obstruction Eda disease Cachexia Carotid artery plaque <50% stenosis of internal carotids B/L by 2016 doppler Chronic diastolic heart failure 2+ ankle edema on exam at [facility] Chronic kidney disease, stage 3 Enlarged prostate Hematuria 2/2 renal calculi Hyperlipidemia Hypertension Indwelling Venegas catheter present Insomnia Leukocytosis Nephrolithiasis On home oxygen therapy 2lpm via n/c PAD (peripheral artery disease) Paroxysmal atrial fibrillation Dx 07/28/18 during admission for COPD exacerbation. Initially in RVR, but spontaneously converted; started on Metoprolol and Eliquis. Eliquis discontinued during admission 03/08/19 due to hematuria. Pulmonary emphysema Pulmonary nodule Sinus tachycardia UTI (urinary tract infection) Vitamin D deficiency Weight loss Surgical History History of appendectomy History of colonoscopy History of cystoscopy WITH STENT, during admission 03/2019 History of lithotripsy History of tonsillectomy Hx of transurethral resection of prostate Family History Mother Cancer thyroid Brother Myocardial infarction Prostate cancer Father No problems noted. Other Family history non-contributory No significant family history Denies family history of Stroke Social History Smoking Status: Former smoker Cigarettes Per Day: 20; Second Hand Exposure: No; Do You Dip or Chew Tobacco: No; Tobacco Cessation Education Requested by Patient: No Hx Alcohol Use: No Hx Substance Use: No Preferred Language: Icelandic Communication Ability: Effective Cement Kiln Operator Required: No Beliefs That Will Affect Care: None marital status: Current Living Situation: Spouse and Family Current Living Situation Comment: currently has home health services current occupational status: retired Other Information That Helps Us Care for You: No Feels Safe at Home: Yes Safety Concerns: Feels Safe At This Time Seatbelt Use: always Sunscreen Use: Yes Assistive Devices: None Assistive Devices Comment: no dentures/no glasse/ no hearing aids on admit to 256-2 Review of Systems Review of Systems: All systems reviewed & are unremarkable except as noted in Subjective Physical Exam Physical Exam: GENERAL: Patient is chronically ill-appearing but in no acute distress. Supplemental oxygen in place. HEENT: Head is atraumatic, normocephalic. EOM's intact. Facies symmetric. No perioral cyanosis. NECK: No JVD. JVP is at the level of the clavicle sitting upright. CHEST/LUNGS: Diminished breath sounds throughout with scattered expiratory wheezes L>R. CVS: S1 and S2 are slightly irregular at 104 bpm without obvious murmurs, gallops, or rubs. PMI is nondisplaced. No lifts, heaves, or thrills. No abdominal aortic or renal bruits. ABDOMINAL EXAM: Bowel sounds are present. No masses, organomegaly, or tenderness. EXTREMITIES: No clubbing or cyanosis. No edema. Intact radial pulses bilaterally. NEUROLOGIC EXAM: Patient is awake, alert, and oriented. Pleasant and cooperative. Answers questions appropriately. Speech is clear. Normal movement in all 4 extremities. Gait pattern was not assessed. Air Brake Tester: -- A-Fib at a rate of mid 90's to 110 bpm Constitutional: WD/WN, vitals as above + ill appearing Eyes: normal visual humphrey by confrontation and + anicteric sclerae Neck: normal visual inspection and trachea midline Respiratory: normal respiratory effort; no respiratory distress Auscultation: + crackles and + wheezes Cardiovascular: Rate/Rhythm: regular rate; + abnormal rhythm Gastrointestinal (Abdomen): Inspection/Auscultation: abdomen not distended Percussion/Palpation: abdomen soft; abdomen nontender Musculoskeletal: Head/Neck/Chest: normocephalic and head atraumatic Neg for peripheral LE edema, + pedal pulses Skin: no rashes, warm and dry Neurologic: awake; not confused Speech / Cognition: normal speech Psychiatric: A+Ox3, euthymic affect Lymphatic: Exam as done by Arianne Riley DO Results & Data Results & Data ([facility]) Vital Signs (Past 12 Hours) Vital Signs Temp Pulse Pulse Resp BP BP Pulse Ox 10/30/20 14:29 105 H 20 116/86 96 10/30/20 12:57 109 H 20 97 10/30/20 12:37 36.6 C 66 26 H 110/74 97 Laboratory Results Laboratory Results - last 24 hr 10/30/20 10/30/20 10/30/20 12:34 12:34 12:34 WBC 19.25 H RBC 3.38 L Hgb 11.8 L Hct 36.3 L MCV 107.4 H MCH 34.9 H MCHC 32.5 RDW Std Deviation 67.5 H RDW Coeff of Ashley 17.0 H Plt Count 345 MPV 9.8 Immature Gran % (Auto) 0.8 Neut % (Auto) 91.1 Lymph % (Auto) 3.7 [place] % (Auto) 4.2 Eos % (Auto) 0.1 Baso % (Auto) 0.1 Neut # (Auto) 17.54 H Lymph # (Auto) 0.72 L [place] # (Auto) 0.80 H Eos # (Auto) 0.02 Baso # (Auto) 0.01 Immature Gran # (Auto) 0.16 H PT 13.0 H INR 1.2 H APTT 34.5 H PTT Ratio 1.2 Sodium 138 Potassium 4.9 Chloride 110 H Carbon Dioxide 23 Anion Gap 5.0 BUN 47 H Creatinine 1.71 H Est Cr Clr Drug Dosing 29.0 Est GFR ( Amer) 41.4 Est GFR (Non-Af Amer) 35.7 BUN/Creatinine Ratio 27.7 H Glucose 110 H Lactate Calcium 8.9 Magnesium 2.2 Total Bilirubin 0.5 AST 13 L ALT 20 Alkaline Phosphatase 101 Troponin I < 0.015 NT-Pro-B Natriuret Pep 2639 H Total Protein 6.9 Albumin 2.8 L Globulin 4.1 H Albumin/Globulin Ratio 0.7 L COVID-19 Eval Order SARS-CoV-2, RNA, NAAT 10/30/20 10/30/20 10/30/20 12:50 12:50 14:10 WBC RBC Hgb Hct MCV MCH MCHC RDW Std Deviation RDW Coeff of Ashley Plt Count MPV Immature Gran % (Auto) Neut % (Auto) Lymph % (Auto) [place] % (Auto) Eos % (Auto) Baso % (Auto) Neut # (Auto) Lymph # (Auto) [place] # (Auto) Eos # (Auto) Baso # (Auto) Immature Gran # (Auto) PT INR APTT PTT Ratio Sodium Potassium Chloride Carbon Dioxide Anion Gap BUN Creatinine Est Cr Clr Drug Dosing Est GFR ( Amer) Est GFR (Non-Af Amer) BUN/Creatinine Ratio Glucose Lactate 2.1 H* Calcium Magnesium Total Bilirubin AST ALT Alkaline Phosphatase Troponin I NT-Pro-B Natriuret Pep Total Protein Albumin Globulin Albumin/Globulin Ratio COVID-19 Eval Order Covid19 [facility] SARS-CoV-2, RNA, NAAT NEGATIVE Diagnostic Findings CXR 10/30/2020: FINDINGS: Cardiac silhouette is moderately enlarged. Chronic interstitial coarsening. There are new patchy airspace opacities noted throughout the left lung. Calcified plaque of the thoracic aorta. No pneumothorax. Mild blunting of the costophrenic angles. Emphysema. Healed chronic fracture of the lateral left seventh rib. Degenerative changes of the shoulders and spine. IMPRESSION: 1. New patchy airspace opacities throughout the left lung are suspicious for probable pneumonia. 2. Emphysema with chronic interstitial coarsening. 3. Cardiomegaly. Medications Administered Discontinued Medications Albuterol (Albut/Ipratrop 3mg/0.5mg Neb 3 Ml Vial) 3 ml INH NOW STA Stop: 10/30/20 12:39 Last Admin: 10/30/20 12:57 Dose: 3 ml Documented by: [id number] Piperacillin Sod/Tazobactam Sod (Zosyn) 4.5 gm in 120 mls @ 240 mls/hr IV NOW ONE Stop: 10/30/20 14:30 Last Infusion: 10/30/20 15:09 Dose: 0 mls/hr Documented by: [id number] Admin: 10/30/20 14:27 Dose: 240 mls/hr Documented by: [id number] Code Status & VTE Plan Code Status DNR/DNI VTE Prophylaxis Plan VTE Prophylaxis will be ordered: Yes Supervising Physician Co-Signing Physician Notes Pt seen and examined by me. Feeling improved overall. Tolerating PO without issue. Agree with HPI/ROS as noted by PA See above for my exam in PE section Agree with plan as outlined above L sided PNA Elevated WBC COVID neg Started on zosyn in the ED Nebs/steroids given COPD hx and wheezing Chronic home O2 use Baseline cr 1.5-1.8, 1.7 on admission Afib, eliquis PG Care Time/CCT Total # of Minutes Spent Total Time Spent with Patient: Total time spent is greater than 50% in coordination of care (as documented) at patient's floor/unit and/or counseling patient:50 Coding Level of Care Code 49965 Initial Inpt Care Lvl 3 Diagnoses Pneumonia J18.9 COPD (chronic obstructive pulmonary disease) J44.1 COPD type: COPD with acute exacerbation Chronic respiratory failure with hypoxia J96.11 Atrial fibrillation I48.2 Atrial fibrillation type: chronic Chronic anticoagulation Z79.01 Time Spent (min) 65 (1) Atrial fibrillation Atrial fibrillation type: chronic Qualified Code(s): I48.2 - Chronic atrial fibrillation (2) COPD (chronic obstructive pulmonary disease) COPD type: COPD with acute exacerbation Qualified Code(s): J44.1 - Chronic obstructive pulmonary disease with (acute) exacerbation
--- NOTE | 2020-10-30 16:46 | Electrocardiogram Report ---
Test Reason : Blood Pressure : / mmHG Vent. Rate : 107 BPM Atrial Rate : 101 BPM P-R Int : 000 ms QRS Dur : 088 ms QT Int : 308 ms P-R-T Axes : 000 -39 228 degrees QTc Int : 411 ms Atrial fibrillation with rapid ventricular response Left axis deviation Poor R wave progression, consider anterior MS vs. lead placement vs. LVH Abnormal ECG When compared with ECG of 11-MAY-2020 18:21, Atrial fibrillation has replaced Sinus rhythm Confirmed by Mateo Lanza ([id number]) on 10/30/2020 4:46:18 PM Referred By: REFERRED SELF Confirmed By:Denis Lanza
[2020-10-30] MEDS ORDERED: MAGNESIUM HYDROXIDE SUSP 30 ML UDC PO PRN (17:40)
[2020-10-30] MEDS ORDERED: ACETAMINOPHEN 325 MG TAB PO PRN (17:40)
[2020-10-30] MEDS ORDERED: ONDANSETRON INJ 2 MG/ML 2 ML VIAL IV PRN (17:40)
[2020-10-30] MEDS ORDERED: ALBUT/IPRATROP 3MG/0.5MG NEB 3 ML VIAL NEB PRN (17:40)
[2020-10-30] MEDS ORDERED: ALBUTEROL HFA 8 GM INHALER INH PRN (17:40)
[2020-10-30] MEDS ORDERED: ALUMINUM/MAGNESIUM/SIMETH (MAALOX MAX) 30 ML UDC PO PRN (17:40)
[2020-10-30] MEDS ORDERED: LORazepam 0.5 MG TAB PO PRN (17:40)
[2020-10-30] MEDS: methylPREDNISolone 40 MG in SYRINGE 0 ML IV SCH (20:21)
[2020-10-30] MEDS: busPIRone 5 MG TAB PO SCH (20:21)
[2020-10-30] MEDS: APIXABAN 2.5 MG TAB PO SCH (20:22)
[2020-10-30] MEDS: MELATONIN 3 MG TAB PO SCH (20:22)
[2020-10-30] MEDS: traZODone HCL 50 MG TAB PO SCH (20:22)
[2020-10-30] MEDS: oxyCODONE HCL IR 5 MG TAB (IMMEDIATE RELEASE) PO SCH (20:23)
[2020-10-30] MEDS: PRAVASTATIN SOD 20 MG TAB PO SCH (20:23)
[2020-10-30] MEDS: PIPERACILLIN/TAZOBACTAM 3.375 GM in DEXTROSE 5% 100 ML IV SCH (20:24)
[2020-10-31] MEDS ORDERED: SODIUM CHLORIDE 0.65% NA SOLN 45 ML (OCEAN) ONE (03:10)
[2020-10-31] MEDS: SODIUM CHLORIDE 0.65% NA SOLN 45 ML (OCEAN) PRN (03:11)
[2020-10-31] MEDS: PIPERACILLIN/TAZOBACTAM 3.375 GM in DEXTROSE 5% 100 ML IV SCH ×3 (03:11→21:57)
[2020-10-31 07:39] LABS: Basophils # (auto) 0.01 K/uL (0-0.2); Basophils % (auto) 0.1 %; Hematocrit (blood only) 33.9 % (42-52); Immature Granulocytes # (auto) 0.11 K/uL (0.00-0.02); Immature Granulocytes % (auto) 0.9 %; Lymphocytes # (auto) 0.58 K/uL (1.2-3.4); Mean Corpuscular Hemoglobin 34.5 pg (25-34); Mean Corpuscular Hgb Conc 32.4 g/dL (32-36); Mean Corpuscular Volume 106.3 fL (80-100); Mean Platelet Volume 9.5 fL (7.4-10.4); Monocytes # (auto) 0.24 K/uL (0.11-0.59); Monocytes % (auto) 2.1 %; Neutrophils # (auto) 10.71 K/uL (1.4-6.5); Neutrophils % (auto) 91.9 %; Platelet Count 320 K/uL (130-400); RDW Standard Deviation 67.2 fL (36.4-46.3); Red Blood Count 3.19 M/uL (4.7-6.1); White Blood Count 11.65 K/uL (4.8-10.8)
[2020-10-31 08:07] LABS: BUN Creatinine Ratio 30.8 (10-20); Creatinine Clr Calc Pharmacy 25.3 ml/min; Est GFR (African American) 35.1; Est GFR (Non-African American) 30.3; Potassium 5.3 mmol/L (3.5-5.1)
[2020-10-31] MEDS: FLUTICASONE/VILANTEROL 200/25MCG 14 PUFFS/INHALER INH SCH (08:54)
[2020-10-31] MEDS: nitrofurantoin macrocrystaL 50 MG CAP PO SCH (08:55)
[2020-10-31] MEDS: busPIRone 5 MG TAB PO SCH ×2 (08:55→22:05)
[2020-10-31] MEDS: APIXABAN 2.5 MG TAB PO SCH ×2 (08:55→22:05)
[2020-10-31] MEDS: MONTELUKAST SODIUM 10 MG TABLET PO SCH (08:55)
[2020-10-31] MEDS: CYANOCOBALAMIN 500 MCG TABLET (VITAMIN B-12) PO SCH (08:55)
[2020-10-31] MEDS: CHOLECALCIFEROL 1,000 UNITS 25 MCG TAB PO SCH (08:55)
[2020-10-31] MEDS: UMECLIDINIUM BROMIDE 62.5MCG/BLISTER 7 PUFFS/INHALER INH SCH (08:56)
[2020-10-31] MEDS: METOPROLOL SUCC 25MG EXT REL TAB PO SCH (08:56)
[2020-10-31] MEDS: methylPREDNISolone 40 MG in SYRINGE 0 ML IV SCH ×2 (08:56→22:04)
[2020-10-31] MEDS: FOLIC ACID 400 MCG TAB PO SCH (08:56)
[2020-10-31] MEDS ORDERED: AZITHROMYCIN 250 MG TAB PO ONE (09:00)
--- NOTE | 2020-10-31 12:27 | Hospitalist Progress Note ---
Date of Service October 31, 2020 Assessment & Plan (1) Pneumonia: Leo Garcia is an 85 yo male with h/o chronic diastolic CHF (last TTE 01/2019: EF 55%), a-fib (on Eliquis and Toprol XL), BPH with chronic indwelling tong, severe COPD (on 2-3L continuous NC + daily prednisone) and CKD Stage III who was admitted to [facility] on 10/30/2020 for sepsis (source: PNA) and COPD exacerbation. Sepsis, Pulmonary Source - increased SOB, left-sided crackles on exam, CXR showing patchy airspace opacities in L lung suspicious for PNA - MRSA nares negative - 3/4 SIRS criteria for sepsis (HR, BP, WBC), Lactate 2.1 on admission - Suspect sepsis 2/2 left-sided PNA - VS improving today, WBC downtrending 19.25 --> 11.65 today - continue Zosyn IV - NSS 500cc bolus given this afternoon to assist with hypotension in the setting of sepsis - cautiously bolus further as necessary, bearing in mind h/o CHR with BNP 2639 during this admission - follow blood cx - will adjust abx as necessary pending results - trend CBC daily Atrial Fibrillation with Rapid Response - HR 100s-120s while hospitalized - suspect RVR 2/2 sepsis/PNA - continue Eliqius/Toprol XL home meds - continue to monitor via tele, contact provider for HR>130 Mild COPD Exacerbation - denies increased cough/sputum before hospitalization although has SOB - stable O2 requirements (2-3 L NC) - similar to home regimen - suspect mild COPD exacerbation - continue duo nebs - continue Solu-Medrol IV for now, plan to downgrade tomorrow if improves Acute Kidney Injury - Cr 1.71 on admission, up to 1.96 today - unclear baseline Cr although is increased from 1.58 on 06/10/2020 - BUN:Cr ratio 27.7:1 - suspect pre-renal injury 2/2 sepsis - IVFs as mentioned above - trend BMP daily FEN/GI: Low-sodium diet, NSS boluses as tolerated DVT Prophylaxis: Eliquis Code Status: DNR/DNI Disposition: med/surg with tele (2) COPD (chronic obstructive pulmonary disease): (3) Chronic respiratory failure with hypoxia: (4) Atrial fibrillation: (5) Chronic anticoagulation: Admission and Anticipated Discharge Date Admission Date: October 30, 2020 Supervising Physician Co-Signing Physician Notes Attending attestation Pt seen and examined in concert with Dr. De. In agreement with the documented findings as noted in the resident documentation with any exceptions or additions as noted here. Still overall fatigued/weak with improved SOB from presentation. On examination, S1/S2 nl tachycardia. Lungs with diffuse rales/crackles b/l worse on the right with decreased breath sounds at bilateral bases. Abd NT/ND BS +ve Sepsis in the setting of pneumonia - IV pip/tazo - pressures have been soft today but responded to 500cc bolus well, caution re: fluid overload. Follow up cultures. AF w/ RVR - on AC, rate controlled with metoprolol, caution with rate control re: soft pressures COPD w/ exacerbation - likely transition to PO prednisone in AM. Continue duoneb PRN. Recommend IS. MOHAN - likely pre-renal with hypotension responsive to bolus. Hydration as noted Else see resident documentation as noted. Subjective No acute events overnight. Reports several days of worsening shortness of breath. Also reports chronic productive cough of sputum without any acute increase/change. Denies fever/chills, chest pain/palpitations, N/V, abdominal pain. Review of Systems Review of Systems: Pertinent positives and negatives mentioned in HPI. Physical Exam Physical Exam: General: A&Ox4. NAD. Cooperative. HEENT: Atraumatic, normocephalic. Pulm: no increased work of breathing, expiratory crackles on auscultation of left upper/middle lung humphrey. Cardiac: irregularly irregular rhythm, tachycardic, -mrg. Radial pulses intact and symmetrical. Abdominal: soft, non-tender, non-distended, BS x 4 Results & Data Results & Data ([facility]) Vital Signs (Past 12 Hours) Vital Signs Temp Pulse Pulse Resp BP BP Pulse Ox 10/31/20 11:12 36.3 C L 91 H 20 91/58 L 95 10/31/20 07:39 36.4 C L 86 18 125/71 99 10/31/20 07:15 115 H 10/31/20 04:16 36.4 C L 91 H 18 112/68 96 10/31/20 01:02 122 H Resident Activity Tracking Resident Involvement: Resident Care Provided Care Provided: Adult [facility] Medicine (1) Atrial fibrillation Atrial fibrillation type: chronic Qualified Code(s): I48.2 - Chronic atrial fibrillation (2) COPD (chronic obstructive pulmonary disease) COPD type: COPD with acute exacerbation Qualified Code(s): J44.1 - Chronic obstructive pulmonary disease with (acute) exacerbation
[2020-10-31] MEDS ORDERED: SODIUM CHLORIDE 0.9% 1000ML 500 ML IV ONE (15:15)
[2020-10-31] MEDS: oxyCODONE HCL IR 5 MG TAB (IMMEDIATE RELEASE) PO SCH (22:04)
[2020-10-31] MEDS: MELATONIN 3 MG TAB PO SCH (22:05)
[2020-10-31] MEDS: traZODone HCL 50 MG TAB PO SCH (22:06)
[2020-10-31] MEDS: PRAVASTATIN SOD 20 MG TAB PO SCH (22:06)
[2020-11-01] MEDS: PIPERACILLIN/TAZOBACTAM 3.375 GM in DEXTROSE 5% 100 ML IV SCH ×2 (05:04→17:33)
[2020-11-01 07:22] LABS: Hematocrit (blood only) 32.4 % (42-52); Hemoglobin 10.3 g/dL (14.0-18.0); Immature Granulocytes # (auto) 0.11 K/uL (0.00-0.02); Immature Granulocytes % (auto) 1.2 %; Lymphocytes # (auto) 0.65 K/uL (1.2-3.4); Lymphocytes % (auto) 6.9 %; Mean Corpuscular Hemoglobin 33.8 pg (25-34); Mean Corpuscular Hgb Conc 31.8 g/dL (32-36); Mean Corpuscular Volume 106.2 fL (80-100); Mean Platelet Volume 9.6 fL (7.4-10.4); Monocytes # (auto) 0.38 K/uL (0.11-0.59); Neutrophils # (auto) 8.29 K/uL (1.4-6.5); Neutrophils % (auto) 87.9 %; Platelet Count 307 K/uL (130-400); RDW Coefficient of Variation 17.2 % (11.5-14.5); RDW Standard Deviation 66.6 fL (36.4-46.3); Red Blood Count 3.05 M/uL (4.7-6.1); White Blood Count 9.43 K/uL (4.8-10.8)
[2020-11-01] MEDS: FLUTICASONE/VILANTEROL 200/25MCG 14 PUFFS/INHALER INH SCH (07:59)
[2020-11-01] MEDS: CYANOCOBALAMIN 500 MCG TABLET (VITAMIN B-12) PO SCH (08:00)
[2020-11-01] MEDS: FOLIC ACID 400 MCG TAB PO SCH (08:00)
[2020-11-01] MEDS: busPIRone 5 MG TAB PO SCH ×2 (08:00→20:56)
[2020-11-01] MEDS: APIXABAN 2.5 MG TAB PO SCH ×2 (08:00→20:55)
[2020-11-01 08:01] LABS: BUN Creatinine Ratio 28.7 (10-20); Calcium 8.4 mg/dl (8.5-10.1); Creatinine Clr Calc Pharmacy 18.5 ml/min; Est GFR (Non-African American) 20.7; Potassium 5.5 mmol/L (3.5-5.1)
[2020-11-01] MEDS: CHOLECALCIFEROL 1,000 UNITS 25 MCG TAB PO SCH (08:01)
[2020-11-01] MEDS: POTASSIUM CHLORIDE 10 MEQ TABCR PO SCH (08:01)
[2020-11-01] MEDS: nitrofurantoin macrocrystaL 50 MG CAP PO SCH (08:01)
[2020-11-01] MEDS: UMECLIDINIUM BROMIDE 62.5MCG/BLISTER 7 PUFFS/INHALER INH SCH (08:01)
[2020-11-01] MEDS: METOPROLOL SUCC 25MG EXT REL TAB PO SCH (08:02)
[2020-11-01] MEDS: MONTELUKAST SODIUM 10 MG TABLET PO SCH (08:02)
[2020-11-01] MEDS: methylPREDNISolone 40 MG in SYRINGE 0 ML IV SCH (08:02)
[2020-11-01] MEDS ORDERED: AZITHROMYCIN 250 MG TAB PO SCH (09:00)
[2020-11-01] MEDS ORDERED: FUROSEMIDE 20 MG TAB PO SCH (09:00)
[2020-11-01] MEDS: LACTATED RINGER'S 1,000 ML IV SCH (11:34)
--- NOTE | 2020-11-01 12:33 | Hospitalist Progress Note ---
Date of Service November 01, 2020 Assessment & Plan (1) Pneumonia: Leo Garcia is an 85 yo male with h/o chronic diastolic CHF (last TTE 01/2019: EF 55%), a-fib (on Eliquis and Toprol XL), BPH with chronic indwelling tong, severe COPD (on 2-3L continuous NC + daily prednisone) and CKD Stage III who was admitted to [facility] on 10/30/2020 for sepsis (source: PNA) and COPD exacerbation. Sepsis, Pulmonary Source - Suspect sepsis 2/2 left-sided PNA - blood cx negative after 48 hours - VS improving today although still mildly hypotensive, WBC downtrending 11 --> 9 today - continue Zosyn IV, tentative plan to downgrade tomorrow if improved - Started on soft IVFs: LR @70cc/hr - cautiously repleting, bearing in mind h/o CHF with BNP 2639 during this admission - trend CBC daily Atrial Fibrillation with Rapid Response - HR 100s-120s while hospitalized - suspect RVR 2/2 sepsis/PNA - continue Eliqius/Toprol XL home meds, hold for BP <100/60 - continue to monitor via tele, contact provider for HR>130 Mild COPD Exacerbation - denies increased cough/sputum before hospitalization although has SOB - stable O2 requirements (2-3 L NC) - similar to home regimen - suspect mild COPD exacerbation - continue duo nebs - continue Solu-Medrol IV for now, downgrade to Prednisone taper tomorrow - encourage incentive spirometry Acute Kidney Injury - Cr 1.71 on admission, up to 2.68 today - unclear baseline Cr although is increased from 1.58 on 06/10/2020 - BUN:Cr ratio 29:1 - suspect pre-renal injury 2/2 sepsis - IVFs as mentioned above - trend BMP daily Ambulatory Dysfunction - reports being bedridden for ~6 months - PT/OT ordered - counseled on need for ambulation/movement as tolerated FEN/GI: Low-sodium diet, LR@70cc/hr DVT Prophylaxis: Eliquis Code Status: DNR/DNI Disposition: med/surg with tele (2) COPD (chronic obstructive pulmonary disease): (3) Chronic respiratory failure with hypoxia: (4) Atrial fibrillation: (5) Chronic anticoagulation: Admission and Anticipated Discharge Date Admission Date: October 30, 2020 Supervising Physician Co-Signing Physician Notes Attending attestation Pt seen and examined in concert with Dr. De. In agreement with the documented findings as noted in the resident documentation with any exceptions or additions as noted here. Improved SOB today with increase in ease of productivity in cough, though still gagging on phlegm intermittently. Re: functional status, has been essentially bedbound since May On examination, S1/S2 nl tachycardia. Lungs with diffuse rales/crackles b/l worse on the right with decreased breath sounds at bilateral bases. Abd NT/ND BS +ve Sepsis in the setting of pneumonia - IV pip/tazo - caution re: fluid overload. Follow up cultures. MOHAN - likely pre-renal with hypotension responsive to bolus. Hydration with 1L LR and trend BMP. Encourage PO intake. AF w/ RVR - on AC, rate controlled with metoprolol, caution with rate control re: soft pressures COPD w/ exacerbation - Continue prednisone 40mg, duoneb PRN. Encourage IS. Else see resident documentation as noted. Subjective No acute events overnight. Reports improvement in SOB today. Denies fever/chills, chest pain/palpitations, N/V, abdominal pain. Review of Systems Review of Systems: Pertinent positives and negatives mentioned in HPI. Physical Exam Physical Exam: General: A&Ox4. NAD. HEENT: Atraumatic, normocephalic. Pulm: no increased work of breathing, expiratory crackles on auscultation of left upper/middle lung humphrey. Cardiac: irregularly irregular rhythm, tachycardic, -mrg. Radial pulses intact and symmetrical. Abdominal: soft, non-tender, non-distended, BS x 4 Results & Data Results & Data ([facility]) Vital Signs (Past 12 Hours) Vital Signs Temp Pulse Pulse Resp BP Pulse Ox 11/01/20 07:49 36.5 C 92 H 18 103/69 96 11/01/20 07:43 103 H 11/01/20 03:46 37.6 C H 94 H 20 120/81 98 Resident Activity Tracking Resident Involvement: Resident Care Provided Care Provided: Adult Hospital Medicine (1) Atrial fibrillation Atrial fibrillation type: chronic Qualified Code(s): I48.2 - Chronic atrial fibrillation (2) COPD (chronic obstructive pulmonary disease) COPD type: COPD with acute exacerbation Qualified Code(s): J44.1 - Chronic obstructive pulmonary disease with (acute) exacerbation
[2020-11-01] MEDS: MELATONIN 3 MG TAB PO SCH (20:55)
[2020-11-01] MEDS: traZODone HCL 50 MG TAB PO SCH (20:55)
[2020-11-01] MEDS: PRAVASTATIN SOD 20 MG TAB PO SCH (20:56)
[2020-11-01] MEDS: oxyCODONE HCL IR 5 MG TAB (IMMEDIATE RELEASE) PO SCH (21:04)
[2020-11-02] MEDS: LACTATED RINGER'S 1,000 ML IV SCH ×2 (01:45→12:24)
[2020-11-02] MEDS: PIPERACILLIN/TAZOBACTAM 3.375 GM in DEXTROSE 5% 100 ML IV SCH ×3 (04:25→20:38)
[2020-11-02 06:23] LABS: Hematocrit (blood only) 28.5 % (42-52); Hemoglobin 9.2 g/dL (14.0-18.0); Immature Granulocytes # (auto) 0.09 K/uL (0.00-0.02); Lymphocytes # (auto) 0.47 K/uL (1.2-3.4); Lymphocytes % (auto) 5.2 %; Mean Corpuscular Hemoglobin 33.9 pg (25-34); Mean Corpuscular Hgb Conc 32.3 g/dL (32-36); Mean Corpuscular Volume 105.2 fL (80-100); Mean Platelet Volume 9.3 fL (7.4-10.4); Monocytes # (auto) 0.68 K/uL (0.11-0.59); Monocytes % (auto) 7.6 %; Neutrophils # (auto) 7.73 K/uL (1.4-6.5); Neutrophils % (auto) 86.2 %; Platelet Count 298 K/uL (130-400); RDW Coefficient of Variation 16.6 % (11.5-14.5); RDW Standard Deviation 63.8 fL (36.4-46.3); Red Blood Count 2.71 M/uL (4.7-6.1); White Blood Count 8.97 K/uL (4.8-10.8)
[2020-11-02 07:01] LABS: BUN Creatinine Ratio 33.4 (10-20); Calcium 8.2 mg/dl (8.5-10.1); Creatinine Clr Calc Pharmacy 20.9 ml/min; Est GFR (African American) 26.3; Est GFR (Non-African American) 22.7; Potassium 5.2 mmol/L (3.5-5.1)
[2020-11-02] MEDS: FOLIC ACID 400 MCG TAB PO SCH (07:47)
[2020-11-02] MEDS: APIXABAN 2.5 MG TAB PO SCH ×2 (07:48→20:38)
[2020-11-02] MEDS: MONTELUKAST SODIUM 10 MG TABLET PO SCH (07:48)
[2020-11-02] MEDS: nitrofurantoin macrocrystaL 50 MG CAP PO SCH (07:48)
[2020-11-02] MEDS: FLUTICASONE/VILANTEROL 200/25MCG 14 PUFFS/INHALER INH SCH (07:49)
[2020-11-02] MEDS: busPIRone 5 MG TAB PO SCH ×2 (07:49→20:38)
[2020-11-02] MEDS: METOPROLOL SUCC 25MG EXT REL TAB PO SCH (07:49)
[2020-11-02] MEDS: UMECLIDINIUM BROMIDE 62.5MCG/BLISTER 7 PUFFS/INHALER INH SCH (07:49)
[2020-11-02] MEDS: CYANOCOBALAMIN 500 MCG TABLET (VITAMIN B-12) PO SCH (07:51)
[2020-11-02] MEDS ORDERED: predniSONE 20 MG TAB PO SCH (09:00)
--- NOTE | 2020-11-02 10:16 | XRay Report ---
SINGLE VIEW CHEST CLINICAL HISTORY: Crackles on physical examination. FINDINGS: 2 AP, portable, upright chest radiographs are compared to study dated 10/30/2020. Correlatio n is made with chest CT dated 01/13/2019. The examination is degraded by portable technique and patien t rotation. The patient's head obscures the apices. The heart is top normal for projection noting adv anced atherosclerotic calcification of the thoracic aorta. Advanced emphysema and chronic interstitia l thickening is similar to previous. There is patchy airspace consolidation throughout both lungs, le ft greater than right. There is a left pleural effusion. No pneumothorax is seen. The skeletal struct ures are osteopenic. The bony thorax is grossly intact. IMPRESSION: 1. Advanced emphysema. 2. There is multifocal bilateral airspace consolidation, left significantly greater than right. The a ppearance is typical for multifocal pneumonia. A clinical correlation will be required and radiograph ic follow-up to resolution is recommended. 3. Left pleural effusion. ACT 112: Negative or not required by law. Electronically signed by: Vidal Love M.D. 11/02/2020 10:14 AM
[2020-11-02] MEDS: CHOLECALCIFEROL 1,000 UNITS 25 MCG TAB PO SCH (12:23)
--- NOTE | 2020-11-02 15:24 | Hospitalist Progress Note ---
Date of Service November 02, 2020 Assessment & Plan (1) Pneumonia: Leo Garcia is an 85 yo male with h/o chronic diastolic CHF (last TTE 01/2019: EF 55%), a-fib (on Eliquis and Toprol XL), BPH with chronic indwelling tong, severe COPD (on 2-3L continuous NC + daily prednisone) and CKD Stage III who was admitted to [facility] on 10/30/2020 for sepsis (source: PNA) and COPD exacerbation. Sepsis, Pulmonary Source - Suspect sepsis 2/2 left-sided PNA - blood cx negative after 48 hours - VS improving today although still mildly hypotensive, WBC downtrending 11 --> 9 today - continue Zosyn IV, plan to change to Ceftazidime 2g IV Q24H x7 days tomorrow for more infrequent dosing in preparation for discharge (total of 10 days) - Continue soft IVFs: LR @70cc/hr - cautiously repleting, bearing in mind h/o CHF with BNP 2639 during this admission - trend CBC daily Urinary Tract Infection - chronic indwelling tong catheter, Urine cx positive for MDR Pseudomonas (resistant to Cipro/Levo/Gent) - continue Zosyn IV and transition to Ceftazidime, as above Atrial Fibrillation with Rapid Response - HR 100s-120s while hospitalized - suspect RVR 2/2 sepsis/PNA - continue Eliqius/Toprol XL home meds, hold for BP <100/60 - continue to monitor via tele, contact provider for HR>130 Mild COPD Exacerbation - denies increased cough/sputum before hospitalization although has SOB - stable O2 requirements (2-3 L NC) - similar to home regimen - suspect mild COPD exacerbation - continue duo nebs - Prednisone 40mg PO daily, plan to downgrade to 20mg PO tomorrow before d/c on home dose of 10mg daily - encourage incentive spirometry Acute Kidney Injury - suspect pre-renal injury 2/2 sepsis, possibly c/b ATN - IVFs as mentioned above - trend BMP daily Ambulatory Dysfunction - reports being bedridden for ~6 months - PT/OT ordered - counseled on need for ambulation/movement as tolerated Goals of Care - palliative consult placed today: patient started on oral Oxycodone FEN/GI: Low-sodium diet, LR@70cc/hr DVT Prophylaxis: Eliquis Code Status: DNR/DNI Disposition: med/surg with tele, tentative discharge with home health tomorrow (2) COPD (chronic obstructive pulmonary disease): (3) Chronic respiratory failure with hypoxia: (4) Atrial fibrillation: (5) Chronic anticoagulation: Admission and Anticipated Discharge Date Admission Date: October 30, 2020 Supervising Physician Co-Signing Physician Notes Attending attestation Pt seen and examined in concert with Dr. De. In agreement with the documented findings as noted in the resident documentation with any exceptions or additions as noted here. Continued improvement in shortness of breath and loosening of cough. Functional status is bedbound and has no real interest in improving mobility or working with PT. Also not interested in hospice right now, though has worked with palliative in the past. On examination, S1/S2 nl tachycardia. Lungs with improved rales/crackles b/l worse on the right with decreased breath sounds at bilateral bases. Abd NT/ND BS +ve Sepsis in the setting of pneumonia and UTI with indwelling tong - IV pip/tazo - C/S for UCx as noted, f/u BCx. Transition per resident note MOHAN - improved, would encourage hydration, continue LR for hydration at 70cc AF w/ RVR - on AC, rate controlled with metoprolol, caution with rate control re: soft pressures COPD w/ exacerbation - Continue prednisone 40mg, duoneb PRN. Encourage IS. Else see resident documentation as noted. Subjective No acute events overnight. Reports improvement in SOB today. Denies fever/chills, chest pain/palpitations, N/V, abdominal pain. Review of Systems Review of Systems: Pertinent positives and negatives mentioned in HPI. Physical Exam Physical Exam: General: A&Ox4. NAD. HEENT: Atraumatic, normocephalic. Pulm: no increased work of breathing, expiratory crackles on auscultation of left upper/middle lung humphrey - stable from yesterday Cardiac: irregularly irregular rhythm, tachycardic, -mrg. Radial pulses intact and symmetrical. Abdominal: soft, non-tender, non-distended, BS x 4 Results & Data Results & Data ([facility]) Vital Signs (Past 12 Hours) Vital Signs Temp Pulse Pulse Resp BP Pulse Ox 11/02/20 11:30 36.6 C 94 H 19 142/70 H 92 11/02/20 09:30 36.3 C L 108 H 19 107/66 97 11/02/20 07:19 82 11/02/20 04:52 81 11/02/20 04:04 36.4 C L 95 H 18 112/68 100 Resident Activity Tracking Resident Involvement: Resident Care Provided Care Provided: Adult Hospital Medicine (1) Atrial fibrillation Atrial fibrillation type: chronic Qualified Code(s): I48.2 - Chronic atrial fibrillation (2) COPD (chronic obstructive pulmonary disease) COPD type: COPD with acute exacerbation Qualified Code(s): J44.1 - Chronic obstructive pulmonary disease with (acute) exacerbation
--- NOTE | 2020-11-02 15:56 | Palliative Care Consultation ---
Date of Consultation November 02, 2020 Assessment & Plan (1) SOB (shortness of breath): He is on O2 and maximized management of heart failure and COPD. He is agreeable to trial of opioid therapy for air hunger. He does take oxycodone at hs for chronic pain. Given CKD, would focus on oxycodone as medication of choice. Will order oral concentrate for more immediate effect. Discussed with hospitalist team. (2) Weakness: He is bedbound but feels that his current system is working for him. He is not interested in therapy and recognizes that he is declining and approaching his dying time. (3) Palliative care encounter: We discussed goals of care. He wants to remain at home and have quality time for his remaining days. He is DNR and would not want aggressive therapy but he is not interested in hospice at this time and would want to return to hospital. On further discussion with him and his daughter, Ally, who is his primary caregiver, this is mostly due to fear of shortness of breath. I di scussed goals with Ally. She is certainly working hard to care for both of her parents at home but feels that she is doing ok and has good support. She feels that her father would not really want to return to hospital for care if his symptoms could be managed at home and would then likely feel more comfortable with hospice support. We discussed plan with oral concentrate oxycodone and she is interested in outpatient palliative care for f/u of symptom management and assistance with goals of care. (4) Acute on chronic respiratory failure with hypoxia: (5) Atrial fibrillation: Atrial fibrillation type: unspecified Qualified Code(s): I48.91 - Unspecified atrial fibrillation (6) Pneumonia: Laterality: left Lung location: unspecified part of lung Pneumonia type: due to unspecified organism Qualified Code(s): J18.9 - Pneumonia, unspecified organism (7) COPD (chronic obstructive pulmonary disease): COPD type: COPD with acute exacerbation Qualified Code(s): J44.1 - Chronic obstructive pulmonary disease with (acute) exacerbation (8) Acute on chronic diastolic HF (heart failure): History of Present Illness Reason for Consultation: goals of care Requesting Physician: Dr. De Attending Physician: Guerrero Braun MD History of Present Illness 85 yo gentleman with heart failure and COPD who lives at home with his who is disabled and and hospice care. He has family nearby and has rigged an intercom system with family to call for assistance when needed. He also has caregivers and home health care aids to assist with care. He apparently has been bedridden for the last six months. He was admitted with progressive shortness of breath and found to have pneumonia and sepsis. He has also had acute on chronic kidney disease with GFR of 22.7 currently. He has decided that he wants to return home and does not want to pursue aggressive treatment. We have been consulted to assist with plan of care. Allergies Allergy/AdvReac Type Severity Reaction Status Date / Time tamsulosin Allergy Unknown Unknown Verified 10/30/20 14:16 cilostazol AdvReac Intermediate dizziness, Verified 10/30/20 14:16 palpitations diltiazem AdvReac Intermediate dizziness, Verified 10/30/20 14:16 palpitations simvastatin AdvReac Mild dizziness Verified 10/30/20 14:16 Home Medications Medication Instructions Recorded Confirmed Type cholecalciferol (vitamin D3) 2,000 units PO QAM 10/03/19 10/30/20 History [Vitamin D3] cyanocobalamin (vitamin B-12) 1,000 mcg PO QAM 10/03/19 10/30/20 History sodium chloride 7 % for 4 ml INH BID #240 ml 02/23/20 10/30/20 Rx nebulization potassium chloride 10 mEq 10 meq PO Q2D #30 cap 03/09/20 10/30/20 Rx capsule,extended release folic acid 800 mcg PO QAM 03/31/20 10/30/20 History lorazepam 0.5 mg PO DAILY PRN 03/31/20 10/30/20 History melatonin 10 mg PO HS 03/31/20 10/30/20 History apixaban 2.5 mg tablet 2.5 mg PO BID #180 tab 04/17/20 10/30/20 Rx Dulera 1 puff INHALATION BID 04/26/20 10/30/20 History metoprolol succinate 75 mg PO DAILY 04/26/20 10/30/20 History montelukast 10 mg tablet 10 mg PO QAM #90 tab 05/08/20 10/30/20 Rx miscellaneous medical supply #1 ea 05/17/20 07/10/20 Rx albuterol sulfate 90 mcg/actuation 2 puff INHALATION QID PRN #18 g 06/07/20 10/30/20 Rx aerosol inhaler tiotropium bromide 2.5 2 puff INHALATION DAILY #4 ml 06/08/20 10/30/20 Rx mcg/actuation mist for inhalation pravastatin 20 mg tablet 20 mg PO QPM #90 tab 07/18/20 10/30/20 Rx buspirone 5 mg tablet 5 mg PO BID #60 tab 07/19/20 10/30/20 Rx prednisone 10 mg tablet 10 mg PO QAM #90 tab 07/19/20 10/30/20 Rx ipratropium 0.5 mg-albuterol 3 mg 3 ml INHALATION TID #180 ml 07/20/20 10/30/20 Rx (2.5 mg base)/3 mL nebulization soln nitrofurantoin macrocrystal 50 mg 50 mg PO QAM #30 cap 08/07/20 10/30/20 Rx capsule oxycodone 5 mg tablet 5 mg PO HS #30 tab 10/26/20 10/30/20 Rx furosemide 20 mg PO Q2D 10/30/20 10/30/20 History trazodone 50 mg PO HS 10/30/20 10/30/20 History Patient History Medical History Actinic keratosis Acute on chronic respiratory failure with hypoxia Anemia Ankle edema, bilateral Pt admits to eating salty snacks lately. Advised to avoid salt. Asthma Benign prostatic hyperplasia with urinary obstruction Eda disease Cachexia Carotid artery plaque <50% stenosis of internal carotids B/L by 2017 doppler Chronic diastolic heart failure 2+ ankle edema on exam at [facility] Chronic kidney disease, stage 3 Enlarged prostate Hematuria 2/2 renal calculi Hyperlipidemia Hypertension Indwelling Venegas catheter present Insomnia Leukocytosis Nephrolithiasis On home oxygen therapy 2lpm via n/c PAD (peripheral artery disease) Paroxysmal atrial fibrillation Dx 07/28/18 during admission for COPD exacerbation. Initially in RVR, but spontaneously converted; started on Metoprolol and Eliquis. Eliquis discontinued during admission 03/08/19 due to hematuria. Pulmonary emphysema Pulmonary nodule Sinus tachycardia UTI (urinary tract infection) Vitamin D deficiency Weight loss Surgical History History of appendectomy History of colonoscopy History of cystoscopy WITH STENT, during admission 03/2019 History of lithotripsy History of tonsillectomy Hx of transurethral resection of prostate Family History Mother Cancer thyroid Brother Myocardial infarction Prostate cancer Father No problems noted. Other Family history non-contributory No significant family history Denies family history of Stroke Social History Smoking Status: Former smoker Cigarettes Per Day: 20; Second Hand Exposure: No; Do You Dip or Chew Tobacco: No; Tobacco Cessation Education Requested by Patient: No Hx Alcohol Use: No Hx Substance Use: No Preferred Language: Wolof Communication Ability: Effective S[employer] Developer Required: No Beliefs That Will Affect Care: None marital status: Current Living Situation: Spouse and Family Current Living Situation Comment: currently has home health services current occupational status: retired Other Information That Helps Us Care for You: No Feels Safe at Home: Yes Safety Concerns: Feels Safe At This Time Seatbelt Use: always Sunscreen Use: Yes Assistive Devices: Oxygen - Continuous Assistive Devices Comment: no dentures/no glasse/ no hearing aids on admit to 256-2 Review of Systems Review of Systems: [place] Symptom Assessment Scale Pain 1/3 Dyspnea 2/3 Nausea 0/3 Fatigue 3/3 Anxiety 0/3 Drowsiness 1/3 Palliative Performance Score 30% Physical Exam Constitutional: + frail appearing; no acute distress ENMT: Mouth: + dry oral mucous membranes Respiratory: normal respiratory effort; no labored breathing Gastrointestinal (Abdomen): Inspection/Auscultation: abdomen not distended Musculoskeletal: Extremities: + muscle atrophy Skin: warm and dry Neurologic: awake; not confused Psychiatric: Orientation: oriented x 3 Results & Data ([facility]) Vital Signs (Past 12 Hours) Vital Signs Temp Pulse Pulse Resp BP Pulse Ox 11/02/20 11:30 97.9 F 94 H 19 142/70 H 92 11/02/20 09:30 97.3 F L 108 H 19 107/66 97 11/02/20 07:19 82 11/02/20 04:52 81 11/02/20 04:04 97.5 F L 95 H 18 112/68 100 PG Care Time/CCT Total # of Minutes Spent Total Time Spent with Patient: Total time spent is greater than 50% in coordination of care (as documented) at patient's floor/unit and/or counseling p atient: total time spent 70 minutes with more than 50% of time spent on goals of care, coordination of care, symptom management Coding Level of Care Code 56385 Inpt Consult Level 4 Diagnoses SOB (shortness of breath) R06.02 Weakness R53.1 Palliative care encounter Z51.5 Acute on chronic respiratory failure with hypoxia J96.21 Atrial fibrillation I48.91 Atrial fibrillation type: unspecified Pneumonia J18.9 Laterality: left Lung location: unspecified part of lung Pneumonia type: due to unspecified organism COPD (chronic obstructive pulmonary disease) J44.1 COPD type: COPD with acute exacerbation Acute on chronic diastolic HF (heart failure) I50.33
[2020-11-02] MEDS: MELATONIN 3 MG TAB PO SCH (20:38)
[2020-11-02] MEDS: PRAVASTATIN SOD 20 MG TAB PO SCH (20:38)
[2020-11-02] MEDS: traZODone HCL 50 MG TAB PO SCH (20:38)
[2020-11-02] MEDS: SODIUM CHLORIDE 0.65% NA SOLN 45 ML (OCEAN) PRN (20:48)
[2020-11-03] MEDS: LACTATED RINGER'S 1,000 ML IV SCH (03:24)
[2020-11-03] MEDS: PIPERACILLIN/TAZOBACTAM 3.375 GM in DEXTROSE 5% 100 ML IV SCH (05:05)
[2020-11-03 06:47] LABS: Basophils # (auto) 0.01 K/uL (0-0.2); Basophils % (auto) 0.1 %; Hematocrit (blood only) 26.9 % (42-52); Hemoglobin 8.9 g/dL (14.0-18.0); Immature Granulocytes # (auto) 0.15 K/uL (0.00-0.02); Immature Granulocytes % (auto) 1.4 %; Lymphocytes # (auto) 0.46 K/uL (1.2-3.4); Lymphocytes % (auto) 4.4 %; Mean Corpuscular Hemoglobin 34.5 pg (25-34); Mean Corpuscular Hgb Conc 33.1 g/dL (32-36); Mean Corpuscular Volume 104.3 fL (80-100); Mean Platelet Volume 9.3 fL (7.4-10.4); Monocytes % (auto) 8.6 %; Neutrophils # (auto) 8.91 K/uL (1.4-6.5); Neutrophils % (auto) 85.5 %; Nucleated RBC # (auto) 0.05 K/uL (0-0); Nucleated RBC % (auto) 0.4 %; Platelet Count 278 K/uL (130-400); RDW Coefficient of Variation 16.4 % (11.5-14.5); RDW Standard Deviation 62.4 fL (36.4-46.3); Red Blood Count 2.58 M/uL (4.7-6.1); White Blood Count 10.43 K/uL (4.8-10.8)
[2020-11-03 07:17] LABS: BUN Creatinine Ratio 33.7 (10-20); Calcium 8.6 mg/dl (8.5-10.1); Creatinine Clr Calc Pharmacy 23.7 ml/min; Est GFR (African American) 30.7; Est GFR (Non-African American) 26.5; Potassium 5.3 mmol/L (3.5-5.1)
[2020-11-03] MEDS: FLUTICASONE/VILANTEROL 200/25MCG 14 PUFFS/INHALER INH SCH (07:59)
[2020-11-03] MEDS: UMECLIDINIUM BROMIDE 62.5MCG/BLISTER 7 PUFFS/INHALER INH SCH (07:59)
[2020-11-03] MEDS: POTASSIUM CHLORIDE 10 MEQ TABCR PO SCH (08:00)
[2020-11-03] MEDS: METOPROLOL SUCC 25MG EXT REL TAB PO SCH (08:00)
[2020-11-03] MEDS: CYANOCOBALAMIN 500 MCG TABLET (VITAMIN B-12) PO SCH (08:00)
[2020-11-03] MEDS: busPIRone 5 MG TAB PO SCH (08:00)
[2020-11-03] MEDS: nitrofurantoin macrocrystaL 50 MG CAP PO SCH (08:01)
[2020-11-03] MEDS: MONTELUKAST SODIUM 10 MG TABLET PO SCH (08:01)
[2020-11-03] MEDS: FOLIC ACID 400 MCG TAB PO SCH (08:01)
[2020-11-03] MEDS: CHOLECALCIFEROL 1,000 UNITS 25 MCG TAB PO SCH (08:01)
[2020-11-03] MEDS: APIXABAN 2.5 MG TAB PO SCH (08:01)
[2020-11-03] MEDS ORDERED: predniSONE 20 MG TAB PO SCH (09:00)
--- NOTE | 2020-11-03 12:03 | Discharge Summary ---
Date of Service November 03, 2020 Admission HPI Per Admitting Provider Mr. Garcia is an 85-year-old male with a history of Chronic Diastolic CHF, Hypertension, Dyslipidemia, Atrial Fibrillation (on Eliquis), Chronic Indwelling Tong, Benign Prostatic Hypertrophy, Significant COPD(on supplemental O2 2-3 L/min and prednisone), remote history of Tobacco Use, Type 2 DM, Vitamin D Deficiency, CKD Stage III, and Anemia -- who presented to [facility] ER today with worsening SOB over the past few days, and his SOB became much worse last night -- his dyspnea is worse with any exertion or activity. He has expectorated some brownish sputum and admits to wheezing. Patient denies any cough, fever, chills, headache, stiff neck, chest discomfort, or pleuritic pain. He denies any known COVID-19 exposures. His appetite has been stable, and he denies any vomiting or diarrhea. He denies orthopnea or PND. Patient denies any syncope or near-syncope. Patient specifically denies any chest heaviness, tightness, pressure, or discomfort. He denies any exertional neck, jaw, back, or arm pain. He denies any palpitations. Patient has not had any signs or symptoms suggestive of stroke or mini stroke. Patient has an indwelling Tong catheter. He denies any urinary symptoms but feels his urinary output may be a bit less than usual. Admission Exam Per Admitting Provider Physical Exam: GENERAL: Patient is chronically ill-appearing but in no acute distress. Supplemental oxygen in place. HEENT: Head is atraumatic, normocephalic. EOM's intact. Facies symmetric. No perioral cyanosis. NECK: No JVD. JVP is at the level of the clavicle sitting upright. CHEST/LUNGS: Diminished breath sounds throughout with scattered expiratory wheezes L>R. CVS: S1 and S2 are slightly irregular at 104 bpm without obvious murmurs, gallops, or rubs. PMI is nondisplaced. No lifts, heaves, or thrills. No abdominal aortic or renal bruits. ABDOMINAL EXAM: Bowel sounds are present. No masses, organomegaly, or tender ness. EXTREMITIES: No clubbing or cyanosis. No edema. Intact radial pulses bilaterally. NEUROLOGIC EXAM: Patient is awake, alert, and oriented. Pleasant and cooperative. Answers questions appropriately. Speech is clear. Normal movement in all 4 extremities. Gait pattern was not assessed. Senior Sql Developer: -- A-Fib at a rate of mid 90's to 110 bpm Constitutional: WD/WN, vitals as above + ill appearing Eyes: normal visual humphrey by confrontation and + anicteric sclerae Neck: normal visual inspection and trachea midline Respiratory: normal respiratory effort; no respiratory distress Auscultation: + crackles and + wheezes Cardiovascular: Rate/Rhythm: regular rate; + abnormal rhythm Gastrointestinal (Abdomen): Inspection/Auscultation: abdomen not distended Percussion/Palpation: abdomen soft; abdomen nontender Musculoskeletal: Head/Neck/Chest: normocephalic and head atraumatic Neg for peripheral LE edema, + pedal pulses Skin: no rashes, warm and dry Neurologic: awake; not confused Speech / Cognition: normal speech Psychiatric: A+Ox3, euthymic affect Lymphatic: Exam as done by Arianne Riley DO Principal Diagnosis Pneumonia Complicated Urinary Tract Infection Discharge Exam General: A&Ox4. NAD. HEENT: Atraumatic, normocephalic. Pulm: no increased work of breathing, faint expiratory crackles on auscultation of left upper/middle lung humphrey - improved from yesterday Cardiac: irregularly irregular rhythm, regular rate, -mrg. Radial pulses intact and symmetrical. Abdominal: soft, non-tender, non-distended, BS x 4 Discharge Data Allergies Allergy/AdvReac Type Severity Reaction Status Date / Time tamsulosin Allergy Unknown Unknown Verified 10/30/20 14:16 cilostazol AdvReac Intermediate dizziness, Verified 10/30/20 14:16 palpitations diltiazem AdvReac Intermediate dizziness, Verified 10/30/20 14:16 palpitations simvastatin AdvReac Mild dizziness Verified 10/30/20 14:16 Consultations 10/30/20 14:17 ED Decision to Admit Stat 11/02/20 12:49 Consult Palliative Care Routine Hospital Course (1) Pneumonia: Leo Garcia is an 85 yo male with h/o chronic diastolic CHF (last TTE 01/2019: EF 55%), a-fib (on Eliquis and Toprol XL), BPH with chronic indwelling tong, severe COPD (on 2-3L continuous NC + daily prednisone) and CKD Stage III who was admitted to [facility] on 10/30/2020 for sepsis (source: PNA) and COPD exacerbation. Sepsis, Pulmonary Source Increased SOB, left-sided crackles on exam, CXR showing patchy airspace opacities in L lung suspicious for PNA. Met SIRS criteria for sepsis - suspect sepsi 2/2 left-sided PNA. - blood cx negative after 48 hours - improved on Zosyn IV and LR@70cc/hr - abx transitioned to Ceftazidime 2g IV Q24H x7 days (renal dosing) on discharge - total of 10 days abx to cover for PNA and UTI as mentioned below Complicated Urinary Tract Infection Malodorous urine before hospitalization, chronic indwelling tong catheter, Urine cx positive for MDR Pseudomonas (resistant to Cipro/Levo/Gent). Suspect catheter-associated UTI. - catheter replaced and started Zosyn as above - Zosyn IV transitioned to Ceftazidime IV on discharge, as above - home Nitrofurantoin held, continue to hold until completed abx course Atrial Fibrillation with Rapid Response H/o a-fib, HR 100s-120s while hospitalized, suspect a-fib with RVR 2/2 PNA/sepsis. - rates controlled with home Eliqius/Toprol XL - continue on discharge Mild COPD Exacerbation SOB and increased O2 requirements leading up to hospitalization - suspect mild COPD exacerbation 2/2 PNA/sepsis. - started on duo nebs - started on Solu-Medrol 40mg PO BID, which was transitioned to Pred taper starting on 11/02 - improved O2 requirements (2-3 L NC) - similar to home regimen - continue all home meds on discharge - continue incentive spirometry PRN Diastolic CHF - not hypervolemic while hospitalized, held home lasix for fluid resuscitation - continue home Lasix 20mg PO Q2D and Potassium on discharge Acute Kidney Injury Suspect pre-renal injury 2/2 sepsis, possibly c/b ATN - IVFs while hospitalized as mentioned above - Cr improved gradually to 2.19 on 11/03, still mildly above baseline ~1.7-1.9 - encouraged adequate fluid intake after discharge - recommend home health to measure BMP in 1 week, f/u with PCP Ambulatory Dysfunction - reports being bedridden for ~6 months - was unable to participate in PT/OT - desires to stay bed-ridden - see below Goals of Care Palliative consulted - patient would like to remain comfortable in his bed at home and would like medication to help with air hunger, but does not desire hospice care at this point in time. - started on Morphine 5mg PO Q6H PRN on discharge - continue all other home medications (2) COPD (chronic obstructive pulmonary disease): (3) Chronic respiratory failure with hypoxia: (4) Atrial fibrillation: (5) Chronic anticoagulation: Total Time Total Time Spent Total Time Spent (In Minutes): 45 minutes Total Time Includes: Examination of the Patient, Discharge Planning and Medication Reconciliation Discharge Plan Discharge Items Patient Disposition: Home - Home Health Services Reason For Visit: PNEUMONIA Discharge Diagnosis: Pneumonia Complicated Urinary Tract Infection Condition on Discharge: Fair Activity: Per Instructions section Non-emergency contact: Primary Care Provider Call non-emergency contact if: you have any medication questions, your symptoms worsen and you have a fever Follow-up/Referrals: Guerrero Morse MD [Primary Care Provider] - 11/08/20 11:00 am (You have an appt within in your PCP's office on 11/08 @ 1100am. Please arrive 15 minutes prior to your appt time. It is important that you keep this appt, if for any reason this appt does not fit your schedule, please call [phone] to reschedule. ) Diet: Low Sodium (2gm) Addtl Attending Provider Instructions: You came to [facility] on 10/30/2020 with increased shortness of breath and increasing home oxygen requirements for several days. You had an X-ray of your chest done on admission, which showed a lung infection, or Pneumonia. You were admitted on 10/30 for treatment of the Pneumonia; you were started on an IV antibiotic called Zosyn and you were also given several doses of IV fluids to help with dehydration and associated minor kidney injury. Additionally, you were also given some breathing treatments and steroids while hospitalized, due to your increasing oxygen needs at home in the setting of lung infection. Lastly, you were also found to have a urinary tract infection, which may have been due to prolonged time with the same urinary catheter, so we replaced your urinary catheter. The IV antibiotics mentioned above did well to control your urinary tract infection. You did well on all of the above-mentioned treatments and antibiotics. You will continue to take an IV antibiotic called Ceftazidime; your home health aides will help to administer this medication once per day for the next 7 days. You should not take your Nitrofurantoin while you are taking the IV antibiotic. You should continue to take all of your home medications as prescribed, and you should continue to use your oxygen continuously at home. You were also seen by our catalog specialist, given that you spoke to them in the past and expressed a desire to stay comfortable at home, especially during the times when you have worsening shortness of breath. She recommended a medication called Morphine which helps with the fear and anxiety associated with worsening shortness of breath - this will help you to stay as comfortable as possible when you have shortness of breath. You should take this medication as needed for shortness of breath. As was explained in the hospital, this medication will keep you comfortable but will not help to treat you medically. We hope you continue to feel better, and it was a pleasure to help provide your care while you were hospitalized. NOTE: For your home health aides - can you get a BMP done for Mr. Garcia 1 week after discharge? Pending Studies at Discharge: No Stand-Alone Forms: My [facility], Smoking Cessation Medications and DC Order Prescriptions: New ceftazidime 2 gram recon soln 2 g IV Q24H 7 Days RF: 0 morphine concentrate 10 mg/0.5 mL syringe 5 mg PO Q6H Qty: 30 RF: 0 morphine concentrate 10 mg/0.5 mL syringe 5 mg PO Q6H Qty: 30 RF: 0 Continued sodium chloride 7 % solution for nebulization 4 ml INH BID Qty: 240 RF: 2 potassium chloride 10 mEq capsule, extended release 10 meq PO Q2D Qty: 30 RF: 3 Eliquis 2.5 mg tablet 2.5 mg PO BID Qty: 180 RF: 1 (DME) Hospital Bed Misc See Rx Instructions .ROUTE .MEDSUPPLY Qty: 1 RF: 0 albuterol sulfate 90 mcg/actuation HFA aerosol inhaler 2 puff inhalation QID PRN (Reason: Shortness Of Breath Or Wheezing) Qty: 18 RF: 5 Spiriva Respimat 2.5 mcg/actuation mist 2 puff inhalation DAILY Qty: 4 RF: 5 pravastatin 20 mg tablet 20 mg PO QPM Qty: 90 RF: 3 prednisone 10 mg tablet 10 mg PO QAM Qty: 90 RF: 3 buspirone 5 mg tablet 5 mg PO BID Qty: 60 RF: 5 ipratropium-albuterol 0.5 mg-3 mg(2.5 mg base)/3 mL solution for nebulization 3 ml Inhalation TID Qty: 180 RF: 5 montelukast 10 mg tablet 10 mg PO QAM Qty: 90 RF: 1 folic acid 800 mcg Tablet 800 mcg PO QAM RF: 0 lorazepam 0.5 mg tablet 0.5 mg PO DAILY PRN (Reason: Anxiety) RF: 0 melatonin 10 mg Tablet 10 mg PO HS RF: 0 Dulera 200-5 mcg/actuation HFA aerosol inhaler 1 puff INHALATION BID RF: 0 metoprolol succinate 50 mg tablet extended release 24 hr 75 mg PO DAILY RF: 0 cholecalciferol (vitamin D3) [Vitamin D3] 2,000 unit capsule 2,000 units PO QAM RF: 0 cyanocobalamin (vitamin B-12) 1,000 mcg capsule 1,000 mcg PO QAM RF: 0 trazodone 50 mg tablet 50 mg PO HS RF: 0 furosemide 20 mg tablet 20 mg PO Q2D RF: 0 Discontinued nitrofurantoin macrocrystal 50 mg capsule 50 mg PO QAM Qty: 30 RF: 5 oxycodone 5 mg tablet 5 mg PO HS Qty: 30 RF: 0 Discharge Orders: Discharge Order (Routine); Ordered 11/03/20 Ordered By: Kiko De Admission Data Admit Date/Time: 10/30/20 15:15 Attending Provider: Jonas Chavez Admit Provider: Arianne Riley Primary Care Provider: Guerrero Morse Other Providers: Arianne Riley ; [place] ; Michelle Mcgregor ; Guerrero Braun Other Interventions: Discharge Summary Assessment (RN) Last Done: 11/03/20 14:18 Supervising Physician Co-Signing Physician Notes I also saw the patient with the resident physician and confirmed escamilla portions of the history and physical examination. I agree with the documentation in the resident's discharge summary. Upon exam, the patient notes that he feels overall better; less short of breath. He does have some phlegm this morning which he blames on consuming pudding last evening. Palliative care consultation appreciated. Addition of concentrated Roxanol as needed breathlessness/air hunger. I reviewed with the patient the concentrated nature of the medication, and specific instructions for dosing. Patient is borderline hyperkalemic, although his Lasix has been on hold. Suggest resuming it every other day Lasix (it was recently increased to daily by his PCP, although he looked dry upon presentation). Patient will take his potassium only on days when he takes his Lasix. Home nursing has been set up for home antibiotics. Transportation via litter van later today. Resident Activity Tracking Resident Involvement: Resident Care Provided Care Provided: Adult Hospital Medicine
--- NOTE | 2020-11-03 15:10 | Palliative Care Progress Note ---
Date of Service November 03, 2020 Assessment & Plan (1) SOB (shortness of breath): Improved with treatment. Being short of breath at home is his biggest worry. We reviewed use of oxycodone for relief of air hunger in addition to his current medications. (2) Palliative care encounter: He has declined hospice care in the past, wanting to have option for return to hospital. On discussion with him and his daughter, his motivation for return to hospital is primarily fear of being short of breath. He is followed by home care. We will monitor his symptom management with oxycodone at home. Daughter has expressed interest in outpatient palliative care f/u for symptom management and assistance with goals of care. (3) Acute on chronic respiratory failure with hypoxia: (4) COPD (chronic obstructive pulmonary disease): (5) Pneumonia: Admission and Anticipated Discharge Date Admission Date: October 30, 2020 Subjective Reports that he's feeling better and anxious to go home. He is concerned about tracheal secretions and has productive cough. He denies feeling short of breath at present. Review of Systems Review of Systems: [place] Symptom Assessment Scale Pain 0/3 Dyspnea 0/3 Nausea 0/3 Anorexia 0/3 Drowsiness 0/3 Fatigue 2/3 Palliative Performance Score 30% Physical Exam Constitutional: no acute distress ENMT: Mouth: oral mucous membranes not dry Respiratory: + uses accessory muscles productive cough Gastrointestinal (Abdomen): Inspection/Auscultation: abdomen not distended no constipation Musculoskeletal: Extremities: + muscle atrophy Skin: warm and dry Psychiatric: Orientation: alert and oriented x 3 Results & Data ([facility]) Vital Signs (Past 12 Hours) Vital Signs Temp Pulse Pulse Resp BP BP Pulse Ox 11/03/20 14:18 97.3 F L 100 H 20 125/71 122/77 95 11/03/20 11:12 97.3 F L 100 H 20 122/77 95 11/03/20 07:32 97.6 F 69 18 109/78 100 11/03/20 07:20 85 11/03/20 03:25 98.1 F 94 H 18 107/68 90 PG Care Time/CCT Total # of Minutes Spent Total Time Spent with Patient: Total time spent is greater than 50% in coordination of care (as documented) at patient's floor/unit and/or counseling patient: Coding Level of Care Code 14675 Subseq Hosp Care Lvl 2 Diagnoses SOB (shortness of breath) R06.02 Palliative care encounter Z51.5 Acute on chronic respiratory failure with hypoxia J96.21 COPD (chronic obstructive pulmonary disease) J44.1 COPD type: COPD with acute exacerbation Pneumonia J18.9 Laterality: left Lung location: unspecified part of lung Pneumonia type: due to unspecified organism (1) COPD (chronic obstructive pulmonary disease) COPD type: COPD with acute exacerbation Qualified Code(s): J44.1 - Chronic obstructive pulmonary disease with (acute) exacerbation (2) Pneumonia Laterality: left Lung location: unspecified part of lung Pneumonia type: due to unspecified organism Qualified Code(s): J18.9 - Pneumonia, unspecified organism
== END 2020-11-03 15:38 | disposition home health service (06) | DRG 871 ==
LOC: ED 12:17 → SUATTDRO 15:15 → 2W 15:15

== ENCOUNTER 2020-11-05 16:54 | Inpatient (IN) ==
--- NOTE | 2020-11-05 17:14 | Emergency Department Note ---
History of Present Illness General Chief complaint: Respiratory Distress Time Seen by Provider: 11/05/20 16:58 History of Present Illness Provider complaint: Difficulty breathing Onset (ago): week(s) 1 Associated symptoms: + cough and + shortness of breath; no fever/chills 85-year-old male with history of atrial fibrillation on anticoagulation, end- stage COPD, and who is DNR/DNI presents emergency department for difficulty breathing. Patient states over the last week he has had increased difficulty breathing. He states he was just released from the hospital on , 3 days ago. Denies any fevers. He does report cough. EMS gave the patient 1 DuoNeb 1 albuterol inhaler and Solu-Medrol 125 mg. Patient stated he felt better after the DuoNeb's. Home Medications Medication Instructions Recorded Confirmed Type cholecalciferol (vitamin D3) 2,000 units PO QAM 10/03/19 11/05/20 History [Vitamin D3] cyanocobalamin (vitamin B-12) 1,000 mcg PO QAM 10/03/19 11/05/20 History sodium chloride 7 % for 4 ml INH BID #240 ml 02/23/20 11/05/20 Rx nebulization potassium chloride 10 mEq 10 meq PO Q2D #30 cap 03/09/20 11/05/20 Rx capsule,extended release folic acid 800 mcg PO QAM 03/31/20 11/05/20 History lorazepam 0.5 mg PO DAILY PRN 03/31/20 11/05/20 History melatonin 10 mg PO HS 03/31/20 11/05/20 History apixaban 2.5 mg tablet 2.5 mg PO BID #180 tab 04/17/20 11/05/20 Rx Dulera 1 puff INHALATION BID 04/26/20 11/05/20 History metoprolol succinate 75 mg PO QAM 04/26/20 11/05/20 History miscellaneous medical supply #1 ea 05/17/20 07/10/20 Rx albuterol sulfate 90 mcg/actuation 2 puff INHALATION QID PRN #18 g 06/07/20 11/05/20 Rx aerosol inhaler pravastatin 20 mg tablet 20 mg PO QPM #90 tab 07/18/20 11/05/20 Rx buspirone 5 mg tablet 5 mg PO BID #60 tab 07/19/20 11/05/20 Rx prednisone 10 mg tablet 10 mg PO QAM #90 tab 07/19/20 11/05/20 Rx ipratropium 0.5 mg-albuterol 3 mg 3 ml INHALATION TID #180 ml 07/20/20 11/05/20 Rx (2.5 mg base)/3 mL nebulization soln furosemide 20 mg PO Q2D 10/30/20 11/05/20 History trazodone 50 mg PO HS 10/30/20 11/05/20 History montelukast 10 mg tablet 10 mg PO QAM #90 tab 11/03/20 11/05/20 Rx Spiriva Respimat 2 puff INHALATION QAM 11/05/20 11/05/20 History Allergies Allergy/AdvReac Type Severity Reaction Status Date / Time tamsulosin Allergy Unknown Unknown Verified 11/05/20 18:00 cilostazol AdvReac Intermediate dizziness, Verified 11/05/20 18:00 palpitations diltiazem AdvReac Intermediate dizziness, Verified 11/05/20 18:00 palpitations simvastatin AdvReac Mild dizziness Verified 11/05/20 18:00 Past Med/Surg History Medical History Actinic keratosis Anemia Ankle edema, bilateral Pt admits to eating salty snacks lately. Advised to avoid salt. Asthma Atrial fibrillation Benign prostatic hyperplasia with urinary obstruction Eda disease Cachexia Carotid artery plaque <50% stenosis of internal carotids B/L by 2017 doppler Chronic diastolic heart failure 2+ ankle edema on exam at [facility] Chronic kidney disease, stage 3 Enlarged prostate Hematuria 2/2 renal calculi Hyperlipidemia Hypertension Indwelling Venegas catheter present Insomnia Leukocytosis Leukocytosis Nephrolithiasis On home oxygen therapy 2lpm via n/c PAD (peripheral artery disease) Paroxysmal atrial fibrillation Dx 07/28/18 during admission for COPD exacerbation. Initially in RVR, but spontaneously converted; started on Metoprolol and Eliquis. Eliquis discontinued during admission 03/08/19 due to hematuria. Pulmonary emphysema Pulmonary nodule Sinus tachycardia SOB (shortness of breath) UTI (urinary tract infection) Vitamin D deficiency Weight loss Surgical History History of appendectomy History of colonoscopy History of cystoscopy WITH STENT, during admission 03/2019 History of lithotripsy History of tonsillectomy Hx of transurethral resection of prostate Family History Mother Cancer thyroid Brother Myocardial infarction Prostate cancer Father No problems noted. Other Family history non-contributory No significant family history Denies family history of Stroke Social History Smoking Status: Former smoker Cigarettes Per Day: 20; Second Hand Exposure: No; Hx Alcohol Use: No Hx Substance Use: No Preferred Language: Dutch Communication Ability: Effective Vocational Rehabilitation Supervisor Required: No Beliefs That Will Affect Care: None marital status: Current Living Situation: Spouse and Family Current Living Situation Comment: currently has home health services current occupational status: retired Feels Safe at Home: Yes Seatbelt Use: always Sunscreen Use: Yes Assistive Devices: Oxygen - Continuous Review of Systems A total of 10 systems reviewed and were otherwise negative Physical Exam Vital Signs Vital Signs - 24 hr 11/05/20 17:00 11/05/20 17:09 11/05/20 17:16 Temperature 36.6 C Temperature Source Oral Pulse Rate 124 H 113 H 115 H Pulse Rate [Finger] Pulse Rate from SpO2 Sensor Respiratory Rate 24 24 27 H Respiratory Effort / Characteristics Labored Short of Breath SOB on Exertion Tripoding Respiratory Depth Shallow Respiratory Pattern Tachypnea Blood Pressure 163/77 H 163/77 H Blood Pressure [Right Arm] Blood Pressure Mean 105 105 Blood Pressure Mean [Right Arm] Pulse Oximetry 91 Oxygen Delivery Method Nasal Cannula Oxygen Flow Rate 3 Sepsis Recent Fever Within 48 Hours No Sepsis New/Unexplained Change in Mental Status Yes Sepsis Action Taken by Nursing Physician Notified 11/05/20 17:18 11/05/20 17:30 11/05/20 17:43 Temperature Temperature Source Pulse Rate 106 H 123 H Pulse Rate [Finger] 107 H Pulse Rate from SpO2 Sensor 106 H 109 H Respiratory Rate 24 22 22 Respiratory Effort / Characteristics Spontaneous Respiratory Depth Respiratory Pattern Blood Pressure 163/77 H Blood Pressure [Right Arm] Blood Pressure Mean 105 Blood Pressure Mean [Right Arm] Pulse Oximetry 93 93 91 Oxygen Delivery Method Nasal Cannula Oxygen Flow Rate 3 Sepsis Recent Fever Within 48 Hours Sepsis New/Unexplained Change in Mental Status Sepsis Action Taken by Nursing 11/05/20 18:00 11/05/20 18:30 11/05/20 19:30 Temperature Temperature Source Pulse Rate 119 H 109 H 116 H Pulse Rate [Finger] Pulse Rate from SpO2 Sensor Respiratory Rate 23 24 16 Respiratory Effort / Characteristics Respiratory Depth Respiratory Pattern Blood Pressure Blood Pressure [Right Arm] Blood Pressure Mean Blood Pressure Mean [Right Arm] Pulse Oximetry 96 98 Oxygen Delivery Method Nasal Cannula Oxygen Flow Rate 3 Sepsis Recent Fever Within 48 Hours Sepsis New/Unexplained Change in Mental Status Sepsis Action Taken by Nursing 11/05/20 20:00 Temperature Temperature Source Pulse Rate Pulse Rate [Finger] 100 H Pulse Rate from SpO2 Sensor Respiratory Rate 20 Respiratory Effort / Characteristics Respiratory Depth Respiratory Pattern Blood Pressure Blood Pressure [Right Arm] 147/125 H Blood Pressure Mean Blood Pressure Mean [Right Arm] 132 Pulse Oximetry 100 Oxygen Delivery Method Nasal Cannula Oxygen Flow Rate 3 Sepsis Recent Fever Within 48 Hours Sepsis New/Unexplained Change in Mental Status Sepsis Action Taken by Nursing Physical Exam GENERAL: Patient wearing oxygen. HENT: Exam performed. - Head: Normocephalic and atraumatic. - Right Ear: External ear normal. No mastoid tenderness. - Left Ear: External ear normal. No mastoid tenderness. - Mouth/Throat: The oropharynx is clear and moist. No trismus in the jaw. No dental abscesses or uvula swelling. No oropharyngeal exudate or tonsillar abscesses. EYES: Conjunctivae and EOM are normal. Pupils are equal, round, and reactive to light. Right eye exhibits no discharge. Left eye exhibits no discharge. No scleral icterus. NECK: Normal range of motion. Neck supple. No JVD present. No spinous process tenderness present. No carotid bruit present. No rigidity. No tracheal deviation and normal range of motion present. No Brudzinski's sign and no Kernig's sign noted. CV: Tachycardic rate, irregular rhythm, normal heart sounds and intact distal pulses. There is no peripheral edema. Palpable radial pulses bue. PULM/CHEST: Tachypneic. Expiratory wheezes. Rhonchi. - Chest Wall: He exhibits no tenderness. ABD: The abdomen is soft. Bowel sounds are normal. He has no distension. No mass is present. There is no tenderness. There is no rebound, no guarding, no Pinto's sign and no tenderness at McBurney's point. Rovsig negative. MUSC/SKEL: Normal range of motion. There is no peripheral edema, tenderness or deformity. LYMPH: No cervical adenopathy. NEURO: He is alert and oriented to person, place, and time. He has normal strength. No cranial nerve deficit or sensory deficit. Coordination and gait normal. GCS eye subscore is 4. GCS verbal subscore is 5. GCS motor subscore is 6. Cerebellar tests wnl. SKIN: Stage II pressure ulcer over the coccyx. PSYCH: He has a normal mood and affect. Behavior is normal. Judgment and thought content normal. Course Course 165: The patient was evaluated in room C5. A complete history and physical exam was performed. Patient was seen in full airborne precautions. Patient was seen in N95's, gloves, gowns, face shield by myself and staff. Cardiac monitoring: An order was placed for continuous cardiac monitoring. The monitor shows a rate of 100-120 with atrial fibrillation rhythm EMR reviewed. Patient has a history of diastolic CHF, hypertension, dyslipidemia, atrial fibrillation, chronic indwelling Venegas catheter, BPH, and COPD. Patient wears 2 to 3 L of oxygen at all times. Patient was admitted to the hospital last week. Chest x-ray at that time showed a patchy airspace opacity in the left lung suspicious for pneumonia. Blood cultures were negative after 48 hours. Patient was started on Zosyn. Patient was transitioned to ceftazidime. Patient was also found to have a complicated urinary tract infection. She is DNR/DNI. Patient declined hospice care during his previous admission. 2012: Vital signs stable on 3 L oxygen. Patient's labs show a white blood cell count of 16.58. Patient has been on steroids recently. Venous blood gas within normal limits. Potassium 5.3. Creatinine 1.55 at baseline. proBNP elevated 5279. X-ray showed no significant change in the left-sided airspace opacity/pneumonia. Initial lactic acid 2.1. Repeat lactic acid 1.4. Is thought that the lactic acidemia was due to the patient's hypoxia is a patient has not received significant mount of IV fluids and his lactic acid got better with increased supplemental oxygen. Patient states he feels better after receiving DuoNeb treatments. Given the patient's age, comorbidities, and increased oxygen usage, it was thought that the patient should be admitted to the hospital. Patient is in agreement. I discussed with the patient's daughter Elmer [phone] who is very emotional on the phone and kept asking if her fath er was going to . I explained to her that he is hemodynamically stable on supplemental oxygen at this time and that we can admit him to the hospital. She thanked me profusely. She also stated that her sister Bren is in the area and can be reached at [phone] should any other questions arise about the patient's care. Patient will be evaluated by hospitalist service [facility]. Rossi notified. Administered Medications Discontinued Medications Albuterol (Albut/Ipratrop 3mg/0.5mg Neb 3 Ml Vial) 3 ml NEB NOW STA Stop: 11/05/20 17:25 Last Admin: 11/05/20 17:38 Dose: 3 ml Documented by: [id number] Heparin Sodium (Porcine) (Heparin 100 Unit/Ml 5ml Flush) Confirm Administered Dose 5 ml .ROUTE .STK-MED ONE Stop: 11/05/20 17:46 Last Admin: 11/05/20 17:55 Dose: 1.5 ml Documented by: [id number] Medical Decision Making Laboratory Data Result diagrams: 11/05/20 17:51 11/05/20 19:07 Lab Results 11/05/20 11/05/20 11/05/20 Range/Units 17:38 17:38 17:38 WBC (4.8-10.8) K/uL RBC (4.7-6.1) M/uL Hgb (14.0-18.0) g/dL Hct (42-52) % MCV (80-100) fL MCH (25-34) pg MCHC (32-36) g/dL RDW Std Deviation (36.4-46.3) fL RDW Coeff of Ashley (11.5-14.5) % Plt Count (130-400) K/uL MPV (7.4-10.4) fL Immature Gran % (Auto) % Neut % (Auto) % Lymph % (Auto) % Mckinley % (Auto) % Eos % (Auto) % Baso % (Auto) % Neut # (Auto) (1.4-6.5) K/uL Lymph # (Auto) (1.2-3.4) K/uL Mckinley # (Auto) (0.11-0.59) K/uL Eos # (Auto) (0-0.5) K/uL Baso # (Auto) (0-0.2) K/uL Immature Gran # (Auto) (0.00-0.02) K/uL Absolute Nucleated RBC (0-0) K/uL Nucleated RBC % (auto) % PT (9.0-12.0) Seconds INR (0.9-1.1) APTT (21.0-31.0) Seconds PTT Ratio VBG pH (7.36-7.41) VBG pCO2 (38-50) mmHg VBG pO2 mmHg VBG HCO3 mmol/L VBG O2 Saturation % VBG Base Excess mEq/L Barometric Pressure mm/Hg Sodium (136-145) mmol/L Potassium (3.5-5.1) mmol/L Chloride (98-107) mmol/L Carbon Dioxide (21-32) mmol/L Anion Gap (3-11) BUN (7-18) mg/dl Creatinine (0.6-1.4) mg/dl Est Cr Clr Drug Dosing ml/min Est GFR ( Amer) Est GFR (Non-Af Amer) BUN/Creatinine Ratio (10-20) Glucose (70-99) mg/dl Lactate (0.4-2.0) mmol/L Calcium (8.5-10.1) mg/dl Magnesium (1.8-2.4) mg/dl Total Bilirubin (0.2-1) mg/dl AST (15-37) U/L ALT (12-78) U/L Alkaline Phosphatase (45-117) U/L Troponin I (0-0.045) ng/ml NT-Pro-B Natriuret Pep (0-1800) pg/ml Total Protein (6.4-8.2) gm/dl Albumin (3.4-5.0) gm/dl Globulin (2.5-4.0) gm/dl Albumin/Globulin Ratio (0.9-2) Procalcitonin Urine Color Dark Yellow Urine Appearance Turbid A (Clear) Urine pH 5.0 (4.5-7.5) Ur Specific [place] 1.018 (1.000-1.030) Urine Protein 1+ H (Negative) Urine Glucose (UA) Negative (Negative) Urine Ketones Trace H (Negative) Urine Blood 3+ H (Negative) Urine Nitrite Negative (Negative) Urine Bilirubin Negative (Negative) Urine Urobilinogen Negative (Negative) Ur Leukocyte Esterase 3+ H (Negative) Urine WBC (Auto) >30 H (0-5) /hpf Urine RBC (Auto) 5-10 H (0-4) /hpf U Hyaline Cast (Auto) 0 (0-5) /lpf U Epithel Cells (Auto) >30 H (0-5) /lpf Urine Bacteria (Auto) Negative (Negative) Urine Yeast Budding w/ Hyphae A (None Prsent) COVID-19 Eval Order Covid19 IDNow [facility] SARS-CoV-2, RNA, NAAT NEGATIVE (NEGATIVE) 11/05/20 11/05/20 11/05/20 Range/Units 17:51 17:51 17:51 WBC 16.58 H (4.8-10.8) K/uL RBC 2.91 L (4.7-6.1) M/uL Hgb 10.0 L (14.0-18.0) g/dL Hct 30.5 L (42-52) % MCV 104.8 H (80-100) fL MCH 34.4 H (25-34) pg MCHC 32.8 (32-36) g/dL RDW Std Deviation 64.2 H (36.4-46.3) fL RDW Coeff of Ashley 16.6 H (11.5-14.5) % Plt Count 299 (130-400) K/uL MPV 10.1 (7.4-10.4) fL Immature Gran % (Auto) 1.9 % Neut % (Auto) 87.0 % Lymph % (Auto) 6.7 % Mckinley % (Auto) 4.3 % Eos % (Auto) 0.0 % Baso % (Auto) 0.1 % Neut # (Auto) 14.43 H (1.4-6.5) K/uL Lymph # (Auto) 1.11 L (1.2-3.4) K/uL Mckinley # (Auto) 0.72 H (0.11-0.59) K/uL Eos # (Auto) 0.00 (0-0.5) K/uL Baso # (Auto) 0.01 (0-0.2) K/uL Immature Gran # (Auto) 0.31 H (0.00-0.02) K/uL Absolute Nucleated RBC 0.03 H (0-0) K/uL Nucleated RBC % (auto) 0.2 % PT (9.0-12.0) Seconds INR (0.9-1.1) APTT (21.0-31.0) Seconds PTT Ratio VBG pH (7.36-7.41) VBG pCO2 (38-50) mmHg VBG pO2 mmHg VBG HCO3 mmol/L VBG O2 Saturation % VBG Base Excess mEq/L Barometric Pressure mm/Hg Sodium 137 (136-145) mmol/L Potassium (3.5-5.1) mmol/L Chloride 105 (98-107) mmol/L Carbon Dioxide 24 (21-32) mmol/L Anion Gap 8.0 (3-11) BUN 60 H (7-18) mg/dl Creatinine 1.55 H (0.6-1.4) mg/dl Est Cr Clr Drug Dosing 36.0 ml/min Est GFR ( Amer) 46.6 Est GFR (Non-Af Amer) 40.2 BUN/Creatinine Ratio 38.4 H (10-20) Glucose 84 (70-99) mg/dl Lactate (0.4-2.0) mmol/L Calcium 8.7 (8.5-10.1) mg/dl Magnesium (1.8-2.4) mg/dl Total Bilirubin 0.6 (0.2-1) mg/dl AST (15-37) U/L ALT 36 (12-78) U/L Alkaline Phosphatase 63 (45-117) U/L Troponin I < 0.015 (0-0.045) ng/ml NT-Pro-B Natriuret Pep 5279 H (0-1800) pg/ml Total Protein 6.3 L (6.4-8.2) gm/dl Albumin 2.5 L (3.4-5.0) gm/dl Globulin 3.8 (2.5-4.0) gm/dl Albumin/Globulin Ratio 0.7 L (0.9-2) Procalcitonin Cancelled Urine Color Urine Appearance (Clear) Urine pH (4.5-7.5) Ur Specific [place] (1.000-1.030) Urine Protein (Negative) Urine Glucose (UA) (Negative) Urine Ketones (Negative) Urine Blood (Negative) Urine Nitrite (Negative) Urine Bilirubin (Negative) Urine Urobilinogen (Negative) Ur Leukocyte Esterase (Negative) Urine WBC (Auto) (0-5) /hpf Urine RBC (Auto) (0-4) /hpf U Hyaline Cast (Auto) (0-5) /lpf U Epithel Cells (Auto) (0-5) /lpf Urine Bacteria (Auto) (Negative) Urine Yeast (None Prsent) COVID-19 Eval Order SARS-CoV-2, RNA, NAAT (NEGATIVE) 11/05/20 11/05/20 11/05/20 Range/Units 17:51 17:51 18:18 WBC (4.8-10.8) K/uL RBC (4.7-6.1) M/uL Hgb (14.0-18.0) g/dL Hct (42-52) % MCV (80-100) fL MCH (25-34) pg MCHC (32-36) g/dL RDW Std Deviation (36.4-46.3) fL RDW Coeff of Ashley (11.5-14.5) % Plt Count (130-400) K/uL MPV (7.4-10.4) fL Immature Gran % (Auto) % Neut % (Auto) % Lymph % (Auto) % Mckinley % (Auto) % Eos % (Auto) % Baso % (Auto) % Neut # (Auto) (1.4-6.5) K/uL Lymph # (Auto) (1.2-3.4) K/uL Mckinley # (Auto) (0.11-0.59) K/uL Eos # (Auto) (0-0.5) K/uL Baso # (Auto) (0-0.2) K/uL Immature Gran # (Auto) (0.00-0.02) K/uL Absolute Nucleated RBC (0-0) K/uL Nucleated RBC % (auto) % PT 12.7 H (9.0-12.0) Seconds INR 1.2 H (0.9-1.1) APTT 28.5 (21.0-31.0) Seconds PTT Ratio 1.0 VBG pH 7.34 L (7.36-7.41) VBG pCO2 46 (38-50) mmHg VBG pO2 25 mmHg VBG HCO3 24 mmol/L VBG O2 Saturation < 60.0 % VBG Base Excess -1.7 mEq/L Barometric Pressure 732.7 mm/Hg Sodium (136-145) mmol/L Potassium (3.5-5.1) mmol/L Chloride (98-107) mmol/L Carbon Dioxide (21-32) mmol/L Anion Gap (3-11) BUN (7-18) mg/dl Creatinine (0.6-1.4) mg/dl Est Cr Clr Drug Dosing ml/min Est GFR ( Amer) Est GFR (Non-Af Amer) BUN/Creatinine Ratio (10-20) Glucose (70-99) mg/dl Lactate 2.1 H* (0.4-2.0) mmol/L Calcium (8.5-10.1) mg/dl Magnesium (1.8-2.4) mg/dl Total Bilirubin (0.2-1) mg/dl AST (15-37) U/L ALT (12-78) U/L Alkaline Phosphatase (45-117) U/L Troponin I (0-0.045) ng/ml NT-Pro-B Natriuret Pep (0-1800) pg/ml Total Protein (6.4-8.2) gm/dl Albumin (3.4-5.0) gm/dl Globulin (2.5-4.0) gm/dl Albumin/Globulin Ratio (0.9-2) Procalcitonin Urine Color Urine Appearance (Clear) Urine pH (4.5-7.5) Ur Specific [place] (1.000-1.030) Urine Protein (Negative) Urine Glucose (UA) (Negative) Urine Ketones (Negative) Urine Blood (Negative) Urine Nitrite (Negative) Urine Bilirubin (Negative) Urine Urobilinogen (Negative) Ur Leukocyte Esterase (Negative) Urine WBC (Auto) (0-5) /hpf Urine RBC (Auto) (0-4) /hpf U Hyaline Cast (Auto) (0-5) /lpf U Epithel Cells (Auto) (0-5) /lpf Urine Bacteria (Auto) (Negative) Urine Yeast (None Prsent) COVID-19 Eval Order SARS-CoV-2, RNA, NAAT (NEGATIVE) 11/05/20 11/05/20 11/05/20 Range/Units 19:07 19:07 Unknown WBC (4.8-10.8) K/uL RBC (4.7-6.1) M/uL Hgb (14.0-18.0) g/dL Hct (42-52) % MCV (80-100) fL MCH (25-34) pg MCHC (32-36) g/dL RDW Std Deviation (36.4-46.3) fL RDW Coeff of Ashley (11.5-14.5) % Plt Count (130-400) K/uL MPV (7.4-10.4) fL Immature Gran % (Auto) % Neut % (Auto) % Lymph % (Auto) % Mckinley % (Auto) % Eos % (Auto) % Baso % (Auto) % Neut # (Auto) (1.4-6.5) K/uL Lymph # (Auto) (1.2-3.4) K/uL Mckinley # (Auto) (0.11-0.59) K/uL Eos # (Auto) (0-0.5) K/uL Baso # (Auto) (0-0.2) K/uL Immature Gran # (Auto) (0.00-0.02) K/uL Absolute Nucleated RBC (0-0) K/uL Nucleated RBC % (auto) % PT (9.0-12.0) Seconds INR (0.9-1.1) APTT (21.0-31.0) Seconds PTT Ratio VBG pH (7.36-7.41) VBG pCO2 (38-50) mmHg VBG pO2 mmHg VBG HCO3 mmol/L VBG O2 Saturation % VBG Base Excess mEq/L Barometric Pressure mm/Hg Sodium (136-145) mmol/L Potassium 5.3 H (3.5-5.1) mmol/L Chloride (98-107) mmol/L Carbon Dioxide (21-32) mmol/L Anion Gap (3-11) BUN (7-18) mg/dl Creatinine (0.6-1.4) mg/dl Est Cr Clr Drug Dosing ml/min Est GFR ( Amer) Est GFR (Non-Af Amer) BUN/Creatinine Ratio (10-20) Glucose (70-99) mg/dl Lactate 1.4 (0.4-2.0) mmol/L Calcium (8.5-10.1) mg/dl Magnesium 2.5 H (1.8-2.4) mg/dl Total Bilirubin (0.2-1) mg/dl AST 23 (15-37) U/L ALT (12-78) U/L Alkaline Phosphatase (45-117) U/L Troponin I (0-0.045) ng/ml NT-Pro-B Natriuret Pep (0-1800) pg/ml Total Protein (6.4-8.2) gm/dl Albumin (3.4-5.0) gm/dl Globulin (2.5-4.0) gm/dl Albumin/Globulin Ratio (0.9-2) Procalcitonin 0.21 Urine Color Urine Appearance (Clear) Urine pH (4.5-7.5) Ur Specific [place] (1.000-1.030) Urine Protein (Negative) Urine Glucose (UA) (Negative) Urine Ketones (Negative) Urine Blood (Negative) Urine Nitrite (Negative) Urine Bilirubin (Negative) Urine Urobilinogen (Negative) Ur Leukocyte Esterase (Negative) Urine WBC (Auto) (0-5) /hpf Urine RBC (Auto) (0-4) /hpf U Hyaline Cast (Auto) (0-5) /lpf U Epithel Cells (Auto) (0-5) /lpf Urine Bacteria (Auto) (Negative) Urine Yeast (None Prsent) COVID-19 Eval Order SARS-CoV-2, RNA, NAAT (NEGATIVE) Imaging Data Radiologist's Impression: XR chest 1V portable CLINICAL HISTORY: Sepsis. COMPARISON STUDY: Chest radiograph November 02, 2020. FINDINGS: Lung volumes are diminished. This is unchanged. There is no pneumothorax. A small left pleural effusion is similar to prior exam. In terstitial thickening and airspace opacities, greater within the left lung, are again noted. Similar findings were shown on prior exam. IMPRESSION: 1. No significant change in asymmetric left lung interstitial thickening and airspace opacities. The findings favor an infectious process. Asymmetric pulmonary edema could appear similar although is considered less likely. Radiographic follow-up is recommended. 2. Small left pleural effusion. ACT 112: Negative or not required by law. Electronically signed by: Des Mead M.D. 11/05/2020 5:36 PM Dictated: 11/05/[id number] Transcribed: 11/05/201733 ECG Data Indication: + SOB/dyspnea Rate (beats per minute): 121 Rhythm: + atrial fibrillation ECG Intervals/blocks: + Normal QRS and + Normal QT-c ECG ST segments: + Normal ST segments [facility] Narrative 1658: The patient was evaluated in room C5. A complete history and physical exam was performed. Patient was seen in full airborne precautions. Patient was seen in N95's, gloves, gowns, face shield by myself and staff. Cardiac monitoring: An order was placed for continuous cardiac monitoring. The monitor shows a rate of 100-120 with atrial fibrillation rhythm EMR reviewed. Patient has a history of diastolic CHF, hypertension, dyslipidemia, atrial fibrillation, chronic indwelling Venegas catheter, BPH, and COPD. Patient wears 2 to 3 L of oxygen at all times. Patient was admitted to the hospital last week. Chest x-ray at that time showed a patchy airspace o pacity in the left lung suspicious for pneumonia. Blood cultures were negative after 48 hours. Patient was started on Zosyn. Patient was transitioned to ceftazidime. Patient was also found to have a complicated urinary tract infection. She is DNR/DNI. Patient declined hospice care during his previous admission. 2012: Vital signs stable on 3 L oxygen. Patient's labs show a white blood cell count of 16.58. Patient has been on steroids recently. Venous blood gas within normal limits. Potassium 5.3. Creatinine 1.55 at baseline. proBNP elevated 5279. X-ray showed no significant change in the left-sided airspace opacity/pneumonia. Initial lactic acid 2.1. Repeat lactic acid 1.4. Is thought that the lactic acidemia was due to the patient's hypoxia is a patient has not received significant mount of IV fluids and his lactic acid got better with increased supplemental oxygen. Patient states he feels better after receiving DuoNeb treatments. Given the patient's age, comorbidities, and increased oxygen usage, it was thought that the patient should be admitted to the hospital. Patient is in agreement. I discussed with the patient's daughter Elmer [phone] who is very emotional on the phone and kept asking if her father was going to . I explained to her that he is hemodynamically stable on supplemental oxygen at this time and that we can admit him to the hospital. She thanked me profusely. She also stated that her sister Bren is in the area and can be reached at [phone] should any other questions arise about the patient's care. Patient will be evaluated by hospitalist service [facility] Dr. Rossi notified. Impression & Plan COPD exacerbation Discharge Plan Visit Data Chief Complaint: Respiratory Distress ED Provider: Aidan Garrido Discharge Problem: COPD exacerbation Patient Disposition: Being Evaluated by Hospitalist Forms Stand Alone Forms: My [facility] Prescriptions Prescriptions: No Action sodium chloride 7 % solution for nebulization 4 ml INH BID Qty: 240 RF: 2 potassium chloride 10 mEq capsule, extended release 10 meq PO Q2D Qty: 30 RF: 3 Eliquis 2.5 mg tablet 2.5 mg PO BID Qty: 180 RF: 1 (DME) Hospital Bed Misc See Rx Instructions .ROUTE .MEDSUPPLY Qty: 1 RF: 0 albuterol sulfate 90 mcg/actuation HFA aerosol inhaler 2 puff inhalation QID PRN (Reason: Shortness Of Breath Or Wheezing) Qty: 18 RF: 5 pravastatin 20 mg tablet 20 mg PO QPM Qty: 90 RF: 3 prednisone 10 mg tablet 10 mg PO QAM Qty: 90 RF: 3 buspirone 5 mg tablet 5 mg PO BID Qty: 60 RF: 5 ipratropium-albuterol 0.5 mg-3 mg(2.5 mg base)/3 mL solution for nebulization 3 ml Inhalation TID Qty: 180 RF: 5 montelukast 10 mg tablet 10 mg PO QAM Qty: 90 RF: 1 folic acid 800 mcg Tablet 800 mcg PO QAM RF: 0 lorazepam 0.5 mg tablet 0.5 mg PO DAILY PRN (Reason: Anxiety) RF: 0 melatonin 10 mg Tablet 10 mg PO HS RF: 0 Dulera 200-5 mcg/actuation HFA aerosol inhaler 1 puff INHALATION BID RF: 0 metoprolol succinate 50 mg tablet extended release 24 hr 75 mg PO QAM RF: 0 Spiriva Respimat 2.5 mcg/actuation mist 2 puff inhalation QAM RF: 0 cholecalciferol (vitamin D3) [Vitamin D3] 2,000 unit capsule 2,000 units PO QAM RF: 0 cyanocobalamin (vitamin B-12) 1,000 mcg capsule 1,000 mcg PO QAM RF: 0 trazodone 50 mg tablet 50 mg PO HS RF: 0 furosemide 20 mg tablet 20 mg PO Q2D RF: 0 Referrals Referrals: Guerrero Morse MD [Primary Care Provider] -
[2020-11-05] MEDS ORDERED: ALBUT/IPRATROP 3MG/0.5MG NEB 3 ML VIAL NEB STA (17:24)
--- NOTE | 2020-11-05 17:37 | XRay Report ---
XR chest 1V portable CLINICAL HISTORY: Sepsis. COMPARISON STUDY: Chest radiograph November 02, 2020. FINDINGS: Lung volumes are diminished. This is unchanged. There is no pneumothorax. A small left pleu ral effusion is similar to prior exam. Interstitial thickening and airspace opacities, greater within the left lung, are again noted. Similar findings were shown on prior exam. IMPRESSION: 1. No significant change in asymmetric left lung interstitial thickening and airspace opacities. The findings favor an infectious process. Asymmetric pulmonary edema could appear similar although is con sidered less likely. Radiographic follow-up is recommended. 2. Small left pleural effusion. ACT 112: Negative or not required by law. Electronically signed by: Des Mead M.D. 11/05/2020 5:36 PM
[2020-11-05] MEDS ORDERED: HEPARIN 100 UNIT/ML 5ML FLUSH ONE (17:45)
[2020-11-05 17:51] LABS: Appearance Urine Turbid (Clear); Bacteria Urine Automated Negative (Negative); Bilirubin Urine Negative (Negative); Blood Urine 3+ (Negative); Color Urine Dark Yellow; Epithelial Cell Urine Auto >30 /lpf (0-5); Glucose Urine UA Negative (Negative); Ketones Urine Trace (Negative); Leukocyte Esterase Urine 3+ (Negative); Nitrite Urine Negative (Negative); Protein Urine 1+ (Negative); Specific Gravity Urine 1.018 (1.000-1.030); Urobilinogen Urine Negative (Negative); WBC Urine Automated >30 /hpf (0-5)
[2020-11-05 18:03] LABS: Cast Urine Automated 0 /lpf (0-5)
[2020-11-05 18:11] LABS: Basophils # (auto) 0.01 K/uL (0-0.2); Basophils % (auto) 0.1 %; Hematocrit (blood only) 30.5 % (42-52); Immature Granulocytes # (auto) 0.31 K/uL (0.00-0.02); Immature Granulocytes % (auto) 1.9 %; Lymphocytes # (auto) 1.11 K/uL (1.2-3.4); Lymphocytes % (auto) 6.7 %; Mean Corpuscular Hemoglobin 34.4 pg (25-34); Mean Corpuscular Hgb Conc 32.8 g/dL (32-36); Mean Corpuscular Volume 104.8 fL (80-100); Mean Platelet Volume 10.1 fL (7.4-10.4); Monocytes # (auto) 0.72 K/uL (0.11-0.59); Monocytes % (auto) 4.3 %; Neutrophils # (auto) 14.43 K/uL (1.4-6.5); Nucleated RBC # (auto) 0.03 K/uL (0-0); Nucleated RBC % (auto) 0.2 %; Platelet Count 299 K/uL (130-400); RDW Coefficient of Variation 16.6 % (11.5-14.5); RDW Standard Deviation 64.2 fL (36.4-46.3); Red Blood Count 2.91 M/uL (4.7-6.1); White Blood Count 16.58 K/uL (4.8-10.8)
[2020-11-05 18:26] LABS: INR 1.2 (0.9-1.1); Partial Thromboplastin Time 28.5 Seconds (21.0-31.0); Prothrombin Time 12.7 Seconds (9.0-12.0)
[2020-11-05 18:33] LABS: Base Excess VBG -1.7 mEq/L; HCO3 VBG 24 mmol/L; Oxygen Saturation VBG < 60.0 %; PCO2 VBG 46 mmHg (38-50); PO2 VBG 25 mmHg; pH VBG 7.34 (7.36-7.41)
[2020-11-05 18:45] LABS: Alanine Aminotransferase 36 U/L (12-78); Albumin Globulin Ratio 0.7 (0.9-2); Albumin Level 2.5 gm/dl (3.4-5.0); Alkaline Phosphatase 63 U/L (45-117); BUN Creatinine Ratio 38.4 (10-20); Bilirubin,Total 0.6 mg/dl (0.2-1); Blood Urea Nitrogen 60 mg/dl (7-18); Calcium 8.7 mg/dl (8.5-10.1); Carbon Dioxide 24 mmol/L (21-32); Chloride 105 mmol/L (98-107); Est GFR (African American) 46.6; Est GFR (Non-African American) 40.2; Globulin 3.8 gm/dl (2.5-4.0); Glucose 84 mg/dl (70-99); NT Pro B Type Natriuretic Pept 5279 pg/ml (0-1800); Sodium 137 mmol/L (136-145); Total Protein 6.3 gm/dl (6.4-8.2); Troponin I < 0.015 ng/ml (0-0.045)
[2020-11-05 19:25] LABS: Potassium 5.3 mmol/L (3.5-5.1)
[2020-11-05 19:30] LABS: Magnesium 2.5 mg/dl (1.8-2.4)
[2020-11-05] MEDS ORDERED: LORazepam 0.5 MG TAB PO STA (20:35)
--- NOTE | 2020-11-05 21:38 | History & Physical Report ---
Date of Service November 05, 2020 Assessment & Plan (1) Acute and chronic respiratory failure with hypoxia: Acute on chronic respiratory failure with hypoxia/pneumonia/COPD exacerbation- Status post recent hospitalization from 10/30-11/[address] on Zosyn 4.5 g IV every 8 hours. Azithromycin 500 mg IV every 24 hours Methylprednisolone 60 mg IV now then 40 mg IV every 8 hours Duonebs every 4 hours while awake and every 2 hours when necessary. He was seen by palliative care at last admission, and hospice was discussed. Present on Admission?: Yes (2) Pneumonia: See above Present on Admission?: Yes (3) COPD exacerbation: See above Present on Admission?: Yes (4) Atrial fibrillation: Atrial fibrillation/long-term anticoagulant use- Continue apixaban 2.5 mg p.o. twice daily, metoprolol succinate Present on Admission?: Yes (5) Anticoagulant long-term use: See above Present on Admission?: Yes (6) Anxiety: Continue buspirone as needed lorazepam and trazodone. Present on Admission?: Yes Admission and Anticipated Discharge Date Admission Date: November 05, 2020 History of Present Illness Chief Complaint: The patient presents to the emergency department with productive cough and shortness of breath that worsened since release from the hospital 3 days ago. Primary Care Provider: Mateo Morse MD The patient is an 85-year-old male with a past medical history of atrial fibr illation, anxiety, stage II buttock pressure ulcer, iron deficiency anemia, chronic indwelling Venegas catheter, chronic respiratory failure with hypoxia, intertrigo, COPD, UTI, generalized weakness, long-term anticoagulant use, anemia, hypotension, sepsis due to UTI, physical deconditioning, acute on chronic diastolic CHF, fecal impaction, pyelonephritis, BPH, allergic rhinitis, vitamin D deficiency, PAD, carotid artery disease, Dimas's disease and hyperlipidemia. His most recent admitted to [facility] from 10/30-11/03 due to similar symptoms as presenting with today. Allergies Allergy/AdvReac Type Severity Reaction Status Date / Time tamsulosin Allergy Unknown Unknown Verified 11/05/20 18:00 cilostazol AdvReac Intermediate dizziness, Verified 11/05/20 18:00 palpitations diltiazem AdvReac Intermediate dizziness, Verified 11/05/20 18:00 palpitations simvastatin AdvReac Mild dizziness Verified 11/05/20 18:00 Home Medications Medication Instructions Recorded Confirmed Type cholecalciferol (vitamin D3) 2,000 units PO QAM 10/03/19 11/05/20 History [Vitamin D3] cyanocobalamin (vitamin B-12) 1,000 mcg PO QAM 10/03/19 11/05/20 History sodium chloride 7 % for 4 ml INH BID #240 ml 02/23/20 11/05/20 Rx nebulization potassium chloride 10 mEq 10 meq PO Q2D #30 cap 03/09/20 11/05/20 Rx capsule,extended release folic acid 800 mcg PO QAM 03/31/20 11/05/20 History lorazepam 0.5 mg PO DAILY PRN 03/31/20 11/05/20 History melatonin 10 mg PO HS 03/31/20 11/05/20 History apixaban 2.5 mg tablet 2.5 mg PO BID #180 tab 04/17/20 11/05/20 Rx Dulera 1 puff INHALATION BID 04/26/20 11/05/20 History metoprolol succinate 75 mg PO QAM 04/26/20 11/05/20 History miscellaneous medical supply #1 ea 05/17/20 07/10/20 Rx albuterol sulfate 90 mcg/actuation 2 puff INHALATION QID PRN #18 g 06/07/20 11/05/20 Rx aerosol inhaler pravastatin 20 mg tablet 20 mg PO QPM #90 tab 07/18/20 11/05/20 Rx buspirone 5 mg tablet 5 mg PO BID #60 tab 07/19/20 11/05/20 Rx prednisone 10 mg tablet 10 mg PO QAM #90 tab 07/19/20 11/05/20 Rx ipratropium 0.5 mg-albuterol 3 mg 3 ml INHALATION TID #180 ml 07/20/20 11/05/20 Rx (2.5 mg base)/3 mL nebulization soln furosemide 20 mg PO Q2D 10/30/20 11/05/20 History trazodone 50 mg PO HS 10/30/20 11/05/20 History montelukast 10 mg tablet 10 mg PO QAM #90 tab 11/03/20 11/05/20 Rx Spiriva Respimat 2 puff INHALATION QAM 11/05/20 11/05/20 History Past Med/Surg History Medical History Actinic keratosis Anemia Ankle edema, bilateral Pt admits to eating salty snacks lately. Advised to avoid salt. Asthma Atrial fibrillation Benign prostatic hyperplasia with urinary obstruction Eda disease Cachexia Carotid artery plaque <50% stenosis of internal carotids B/L by 2017 doppler Chronic diastolic heart failure 2+ ankle edema on exam at [facility] Chronic kidney disease, stage 3 Enlarged prostate Hematuria 2/2 renal calculi Hyperlipidemia Hypertension Indwelling Venegas catheter present Insomnia Leukocytosis Leukocytosis Nephrolithiasis On home oxygen therapy 2lpm via n/c PAD (peripheral artery disease) Paroxysmal atrial fibrillation Dx 07/28/18 during admission for COPD exacerbation. Initially in RVR, but spontaneously converted; started on Metoprolol and Eliquis. Eliquis discontinued during admission 03/08/19 due to hematuria. Pulmonary emphysema Pulmonary nodule Sinus tachycardia SOB (shortness of breath) UTI (urinary tract infection) Vitamin D deficiency Weight loss Surgical History History of appendectomy History of colonoscopy History of cystoscopy WITH STENT, during admission 03/2019 History of lithotripsy History of tonsillectomy Hx of transurethral resection of prostate Family History Mother Cancer thyroid Brother Myocardial infarction Prostate cancer Father No problems noted. Other Family history non-contributory No significant family history Denies family history of Stroke Social History Smoking Status: Former smoker Cigarettes Per Day: 20; Second Hand Exposure: No; Hx Alcohol Use: No Hx Substance Use: No Preferred Language: Tajik Communication Ability: Effective Instant Powder Supervisor Required: No Beliefs That Will Affect Care: None marital status: Current Living Situation: Spouse and Family Current Living Situation Comment: currently has home health services current occupational status: retired Feels Safe at Home: Yes Safety Concerns: Feels Safe At This Time Seatbelt Use: always Sunscreen Use: Yes Assistive Devices: Oxygen - Continuous Review of Systems Review of Systems: The patient denies chest pain, palpitations, lower extremity swelling, sore throat, fevers, chills, sweats, nausea, vomiting, diarrhea , constipation, abdominal pain, pelvic pain, blood in urine or stool, dysuria, urinary frequency or urgency, lightheadedness, dizziness, headache, memory loss, loss of consciousness, rash, abnormal bruising or bleeding, imbalance, focal weakness, numbness or tingling in arms or legs, back or neck pain, or night sweats. The review of systems is otherwise negative other than for that already noted above, and at least 10 systems have been reviewed. Physical Exam Physical Exam: The patient is awake, alert, normocephalic and atraumatic, lying in bed and in no acute distress. HEENT--PERRL, EOMI, mucous membranes and oropharynx dry. Neck--supple. No JVD. No bruits. Thyroid normal, trachea midline, no adenopathy. Heart--normal S1 and S2. No murmurs, rubs or gallops. Lungs--coarse and rhonchorous breath sounds bilaterally. No respiratory distress, no accessory muscle use. Abdomen--normal bowel sounds and soft. Nontender. Nondistended, no hernias or masses, no organomegaly. Extremities--no cyanosis or clubbing. No edema. Dermatologic--normal skin turgor, normal color, no abnormal lymph nodes, no rash. Neurologic--cranial nerves II through XII grossly intact. Rheumatologic--normal range of motion. Psychiatric--normal affect. Results & Data Results & Data ([facility]) Vital Signs (Past 12 Hours) Vital Signs Temp Pulse Pulse Resp BP BP Pulse Ox 11/05/20 20:30 124 H 29 H 98 11/05/20 20:01 111 H 24 175/96 H 100 11/05/20 20:00 100 H 20 147/125 H 100 11/05/20 19:30 116 H 16 98 11/05/20 18:30 109 H 24 96 11/05/20 18:00 119 H 23 11/05/20 17:43 107 H 22 91 11/05/20 17:30 123 H 22 93 11/05/20 17:18 106 H 24 163/77 H 93 11/05/20 17:16 97.9 F 115 H 27 H 163/77 H 91 11/05/20 17:09 113 H 24 11/05/20 17:00 124 H 24 163/77 H Laboratory Results Laboratory Results WBC 16.58 K/uL (4.8-10.8) H 11/05/20 17:51 RBC 2.91 M/uL (4.7-6.1) L 11/05/20 17:51 Hgb 10.0 g/dL (14.0-18.0) L 11/05/20 17:51 Hct 30.5 % (42-52) L 11/05/20 17:51 MCV 104.8 fL (80-100) H 11/05/20 17:51 MCH 34.4 pg (25-34) H 11/05/20 17:51 MCHC 32.8 g/dL (32-36) 11/05/20 17:51 RDW Std Deviation 64.2 fL (36.4-46.3) H 11/05/20 17:51 RDW Coeff of Ashley 16.6 % (11.5-14.5) H 11/05/20 17:51 Plt Count 299 K/uL (130-400) 11/05/20 17:51 MPV 10.1 fL (7.4-10.4) 11/05/20 17:51 Immature Gran % (Auto) 1.9 % 11/05/20 17:51 Neut % (Auto) 87.0 % 11/05/20 17:51 Lymph % (Auto) 6.7 % 11/05/20 17:51 Lynn % (Auto) 4.3 % 11/05/20 17:51 Eos % (Auto) 0.0 % 11/05/20 17:51 Baso % (Auto) 0.1 % 11/05/20 17:51 Neut # (Auto) 14.43 K/uL (1.4-6.5) H 11/05/20 17:51 Lymph # (Auto) 1.11 K/uL (1.2-3.4) L 11/05/20 17:51 Lynn # (Auto) 0.72 K/uL (0.11-0.59) H 11/05/20 17:51 Eos # (Auto) 0.00 K/uL (0-0.5) 11/05/20 17:51 Baso # (Auto) 0.01 K/uL (0-0.2) 11/05/20 17:51 Immature Gran # (Auto) 0.31 K/uL (0.00-0.02) H 11/05/20 17:51 Absolute Nucleated RBC 0.03 K/uL (0-0) H 11/05/20 17:51 Nucleated RBC % (auto) 0.2 % 11/05/20 17:51 PT 12.7 Seconds (9.0-12.0) H 11/05/20 17:51 INR 1.2 (0.9-1.1) H 11/05/20 17:51 APTT 28.5 Seconds (21.0-31.0) 11/05/20 17:51 PTT Ratio 1.0 11/05/20 17:51 VBG pH 7.34 (7.36-7.41) L 11/05/20 18:18 VBG pCO2 46 mmHg (38-50) 11/05/20 18:18 VBG pO2 25 mmHg 11/05/20 18:18 VBG HCO3 24 mmol/L 11/05/20 18:18 VBG O2 Saturation < 60.0 % 11/05/20 18:18 VBG Base Excess -1.7 mEq/L 11/05/20 18:18 Barometric Pressure 732.7 mm/Hg 11/05/20 18:18 Sodium 137 mmol/L (136-145) 11/05/20 17:51 Potassium 5.3 mmol/L (3.5-5.1) H 11/05/20 19:07 Chloride 105 mmol/L (98-107) 11/05/20 17:51 Carbon Dioxide 24 mmol/L (21-32) 11/05/20 17:51 Anion Gap 8.0 (3-11) 11/05/20 17:51 BUN 60 mg/dl (7-18) H 11/05/20 17:51 Creatinine 1.55 mg/dl (0.6-1.4) H 11/05/20 17:51 Est Cr Clr Drug Dosing 36.0 ml/min 11/05/20 17:51 Est GFR ( Amer) 46.6 11/05/20 17:51 Est GFR (Non-Af Amer) 40.2 11/05/20 17:51 BUN/Creatinine Ratio 38.4 (10-20) H 11/05/20 17:51 Glucose 84 mg/dl (70-99) 11/05/20 17:51 Lactate 1.4 mmol/L (0.4-2.0) 11/05/20 Unknown Calcium 8.7 mg/dl (8.5-10.1) 11/05/20 17:51 Magnesium 2.5 mg/dl (1.8-2.4) H 11/05/20 19:07 Total Bilirubin 0.6 mg/dl (0.2-1) 11/05/20 17:51 AST 23 U/L (15-37) 11/05/20 19:07 ALT 36 U/L (12-78) 11/05/20 17:51 Alkaline Phosphatase 63 U/L (45-117) 11/05/20 17:51 Troponin I < 0.015 ng/ml (0-0.045) 11/05/20 17:51 NT-Pro-B Natriuret Pep 5279 pg/ml (0-1800) H 11/05/20 17:51 Total Protein 6.3 gm/dl (6.4-8.2) L 11/05/20 17:51 Albumin 2.5 gm/dl (3.4-5.0) L 11/05/20 17:51 Globulin 3.8 gm/dl (2.5-4.0) 11/05/20 17:51 Albumin/Globulin Ratio 0.7 (0.9-2) L 11/05/20 17:51 Procalcitonin 0.21 ng/ml (0-0.5) 11/05/20 19:07 Urine Color Dark Yellow 11/05/20 17:38 Urine Appearance Turbid (Clear) A 11/05/20 17:38 Urine pH 5.0 (4.5-7.5) 11/05/20 17:38 Ur Specific Lena 1.018 (1.000-1.030) 11/05/20 17:38 Urine Protein 1+ (Negative) H 11/05/20 17:38 Urine Glucose (UA) Negative (Negative) 11/05/20 17:38 Urine Ketones Trace (Negative) H 11/05/20 17:38 Urine Blood 3+ (Negative) H 11/05/20 17:38 Urine Nitrite Negative (Negative) 11/05/20 17:38 Urine Bilirubin Negative (Negative) 11/05/20 17:38 Urine Urobilinogen Negative (Negative) 11/05/20 17:38 Ur Leukocyte Esterase 3+ (Negative) H 11/05/20 17:38 Urine WBC (Auto) >30 /hpf (0-5) H 11/05/20 17:38 Urine RBC (Auto) 5-10 /hpf (0-4) H 11/05/20 17:38 U Hyaline Cast (Auto) 0 /lpf (0-5) 11/05/20 17:38 U Epithel Cells (Auto) >30 /lpf (0-5) H 11/05/20 17:38 Urine Bacteria (Auto) Negative (Negative) 11/05/20 17:38 Urine Yeast Budding w/ Hyphae (None Prsent) A 11/05/20 17:38 COVID-19 Eval Order Covid19 IDNow [facility] 11/05/20 17:38 SARS-CoV-2, RNA, NAAT NEGATIVE (NEGATIVE) 11/05/20 17:38 Diagnostic Findings [facility], [phone] XRay Report Patient: BHARATH ANAND Date: 11/05/20MR#: [id number]: [address] DU LEMAcct ID:[id number]: [address]Birth Date: [address] [place] [address] Zip: [place], [place] [address]Hyy: [id number]: EDSex: MRoom/Bed:Att Phy:Diagnosis: RESPIRATORY DISTRESSPri Phy: Mateo Morse, MDService Date: 11/05/20Fa Phy:Interpreting Phy: Des Mead MDAdmit Phy: Ordering Phy: Aidan Garrido MD cc: ~ XR chest 1V portable CLINICAL HISTORY: Sepsis. COMPARISON STUDY: Chest radiograph November 02, 2020. FINDINGS: Lung volumes are diminished. This is unchanged. There is no pneumothorax. A small left pleural effusion is similar to prior exam. Interstitial thickening and airspace opacities, greater within the left lung, are again noted. Similar findings were shown on prior exam. IMPRESSION: 1. No significant change in asymmetric left lung interstitial thickening and airspace opacities. The findings favor an infectious process. Asymmetric pulmonary edema could appear similar although is considered less likely. Radiographic follow-up is recommended. 2. Small left pleural effusion. ACT 112: Negative or not required by law. Electronically signed by: Des Mead M.D. 11/05/2020 5:36 PM Dictated: 11/05/20 1734Transcribed: 11/05/201733 Code Status & VTE Plan Code Status Full code VTE Prophylaxis Plan VTE Prophylaxis will be ordered: Yes PG Care Time/CCT Total # of Minutes Spent Total Time Spent with Patient: Total time spent is greater than 50% in coordination of care (as documented) at patient's floor/unit and/or counseling patient: Coding Level of Care Code 40102 OBS Care - Level 3 Diagnoses Acute and chronic respiratory failure with hypoxia J96.21 Pneumonia J18.9 Laterality: left Lung location: unspecified part of lung Pneumonia type: due to unspecified organism COPD exacerbation J44.1 Atrial fibrillation I48.91 Atrial fibrillation type: unspecified Anticoagulant long-term use Z79.01 Anxiety F41.9 (1) Pneumonia Laterality: left Lung location: unspecified part of lung Pneumonia type: due to unspecified organism Qualified Code(s): J18.9 - Pneumonia, unspecified orga nism (2) Atrial fibrillation Atrial fibrillation type: unspecified Qualified Code(s): I48.91 - Unspecified atrial fibrillation
[2020-11-05] MEDS ORDERED: LORazepam 0.5 MG TAB PO PRN (22:20)
[2020-11-05] MEDS ORDERED: ALBUT/IPRATROP 3MG/0.5MG NEB 3 ML VIAL INH SCH (22:20)
[2020-11-05] MEDS ORDERED: ONDANSETRON INJ 2 MG/ML 2 ML VIAL IV PRN (22:20)
[2020-11-05] MEDS ORDERED: methylPREDNISolone 125 MG/2 ML VIAL IV STA (22:20)
[2020-11-05] MEDS ORDERED: PIPERACILL/TAZOBAC CONSULT ACTIVE PRN (22:20)
[2020-11-05] MEDS ORDERED: PIPERACILLIN/TAZOBACTAM 4.5 GM in DEXTROSE 5% 100 ML IV ONE (22:45)
[2020-11-05] MEDS: ALBUT/IPRATROP 3MG/0.5MG NEB 3 ML VIAL NEB SCH (23:03)
[2020-11-05] MEDS: traZODone HCL 50 MG TAB PO SCH (23:20)
[2020-11-05] MEDS: APIXABAN 2.5 MG TAB PO SCH (23:20)
[2020-11-05] MEDS: PRAVASTATIN SOD 20 MG TAB PO SCH (23:21)
[2020-11-05] MEDS: guaiFENesin 600 MG TABCR PO SCH (23:21)
[2020-11-05] MEDS: busPIRone 5 MG TAB PO SCH (23:21)
[2020-11-05] MEDS: MELATONIN 3 MG TAB PO SCH (23:25)
[2020-11-05] MEDS: AZITHROMYCIN 500 MG in DEXTROSE 5% 250 ML IV SCH (23:30)
[2020-11-06] MEDS: PIPERACILLIN/TAZOBACTAM 3.375 GM in DEXTROSE 5% 100 ML IV SCH ×3 (04:47→20:28)
[2020-11-06] MEDS: methylPREDNISolone 40 MG in SYRINGE 0 ML IV SCH ×3 (05:29→23:39)
[2020-11-06] MEDS: ALBUT/IPRATROP 3MG/0.5MG NEB 3 ML VIAL NEB SCH ×4 (07:06→19:16)
[2020-11-06] MEDS: UMECLIDINIUM BROMIDE 62.5MCG/BLISTER 7 PUFFS/INHALER INH SCH (07:32)
[2020-11-06] MEDS: FLUTICASONE/VILANTEROL 200/25MCG 14 PUFFS/INHALER INH SCH (07:32)
[2020-11-06] MEDS: FOLIC ACID 400 MCG TAB PO SCH (07:33)
[2020-11-06] MEDS: CHOLECALCIFEROL 1,000 UNITS 25 MCG TAB PO SCH (07:33)
[2020-11-06] MEDS: METOPROLOL SUCC 25MG EXT REL TAB PO SCH (07:33)
[2020-11-06] MEDS: guaiFENesin 600 MG TABCR PO SCH ×2 (07:33→20:53)
[2020-11-06] MEDS: CYANOCOBALAMIN 500 MCG TABLET (VITAMIN B-12) PO SCH (07:34)
[2020-11-06] MEDS: MONTELUKAST SODIUM 10 MG TABLET PO SCH (07:34)
[2020-11-06] MEDS: busPIRone 5 MG TAB PO SCH ×2 (07:35→20:15)
[2020-11-06] MEDS: APIXABAN 2.5 MG TAB PO SCH ×2 (07:35→20:50)
[2020-11-06 08:08] LABS: Hematocrit (blood only) 28.6 % (42-52); Hemoglobin 9.3 g/dL (14.0-18.0); Mean Corpuscular Hemoglobin 34.1 pg (25-34); Mean Corpuscular Hgb Conc 32.5 g/dL (32-36); Mean Corpuscular Volume 104.8 fL (80-100); Mean Platelet Volume 9.8 fL (7.4-10.4); Nucleated RBC # (auto) 0.02 K/uL (0-0); Nucleated RBC % (auto) 0.3 %; Platelet Count 236 K/uL (130-400); RDW Coefficient of Variation 16.7 % (11.5-14.5); RDW Standard Deviation 63.9 fL (36.4-46.3); Red Blood Count 2.73 M/uL (4.7-6.1); White Blood Count 9.39 K/uL (4.8-10.8)
[2020-11-06 08:24] LABS: BUN Creatinine Ratio 37.7 (10-20); Calcium 8.6 mg/dl (8.5-10.1); Creatinine Clr Calc Pharmacy 33.8 ml/min; Est GFR (African American) 43.2; Est GFR (Non-African American) 37.3; Potassium 5.3 mmol/L (3.5-5.1)
[2020-11-06] MEDS ORDERED: FUROSEMIDE 20 MG in SYRINGE 0 ML IV ONE (09:00)
--- NOTE | 2020-11-06 09:02 | Hospitalist Progress Note ---
Date of Service November 06, 2020 Assessment & Plan (1) Acute and chronic respiratory failure with hypoxia: Acute on chronic respiratory failure with hypoxia/pneumonia/COPD exacerbation- Status post recent hospitalization from 10/30-11/03 for similar process continue Zosyn and Zithromax Methylprednisolone 40 mg IV every 8 hours cut to q12 tomorrow Duonebs every 4 hours while awake and every 2 hours when necessary. appreciate palliative consult continue morphine and Ativan PRN for dyspnea (2) Pneumonia: See above no fever, minimal cough would give abx for 5 days, change to PO on discharge (3) COPD exacerbation: See above no wheezing or distress will cut Solu Medrol to q12 tomorrow (4) Atrial fibrillation: Atrial fibrillation/long-term anticoagulant use- Continue apixaban 2.5 mg p.o. twice daily, metoprolol succinate (5) Anticoagulant long-term use: See above (6) Anxiety: Continue buspirone as needed lorazepam and trazodone. (7) Hyperkalemia: K is 5.3 stop PO replacement give Lasix IV this morning repeat tomorrow Cr is at baseline Admission and Anticipated Discharge Date Admission Date: November 05, 2020 Subjective patient says he was feeling okay at home for two days but his dyspnea got worse he normally wears 2.5L NC continuous at home, he could not tell me if he was hypoxic at home he says he used some morphine 5mg PO that was prescribed on discharge, he said it worked well he came to the hospital when he continued to have dyspnea and felt like he had a rattle in his throat, could not cough up sputum discussed with him that this will continue given his chronic lung disease, really needs hospice to keep him at home to manage symptoms consult palliative care again today labs show K 5.3, Cr 1.5, WBC now normal CXR report with interstitial thickening and opacities on left, small left pleural effusion, no significant change from prior films will give Lasix 20mg IV for high K patient not hungry this morning, barely touched breakfast he says his breathing is better, no chest pain, no abdominal pain, no nausea/vomiting had a BM yesterday Review of Systems Review of Systems: All systems reviewed & are unremarkable except as noted in Subjective Constitutional: + fatigue and + weakness; no fever Respiratory: + cough, + dyspnea and + dyspnea on exertion; no sputum production Cardiovascular: no chest pain Gastrointestinal: + early satiety; no abdominal pain, no nausea, no vomiting, no constipation and no diarrhea/loose stools Physical Exam Constitutional: well developed, + frail appearing and comfortable; no acute distress Neck: trachea midline, no thyromegaly Respiratory: normal respiratory effort; no respiratory distress and no labored breathing Auscultation: + diminished lung sounds and + crackles Cardiovascular: Rate/Rhythm: regular rate and + irregularly irregular Heart Sounds: normal S1 and normal S2; no murmur Vessels: no JVD Extremities: normal capillary refill; no edema Gastrointestinal (Abdomen): normal bowel sounds, soft, nontender, no hepatosplenomegaly Musculoskeletal: Head/Neck/Chest: normocephalic, head atraumatic and neck supple Extremities: + abnormal strength (generalized weakness) and + muscle atrophy; no cyanosis and no petechiae Skin: no rashes, warm and dry Neurologic: normal touch/pain/proprioception, CN's II-XI intact bilaterally, moves all extremities and awake; no focal motor deficits Psychiatric: A+Ox3, euthymic affect Lymphatic: no cervical or axillary lymphadenopathy Results & Data Results & Data ([facility]) Vital Signs (Past 12 Hours) Vital Signs Temp Pulse Resp BP Pulse Ox 11/06/20 07:29 36.4 C L 96 H 18 129/69 98 11/06/20 07:06 103 H 18 93 11/06/20 04:00 36.7 C 57 L 20 122/71 98 11/05/20 23:03 87 20 94 11/05/20 23:00 36.5 C 113 H 20 116/74 99 11/05/20 21:40 36.3 C L 97 H 16 132/65 97 Laboratory Results Laboratory Results - last 24 hr 11/05/20 11/05/20 11/05/20 17:38 17:38 17:38 WBC RBC Hgb Hct MCV MCH MCHC RDW Std Deviation RDW Coeff of Ashley Plt Count MPV Immature Gran % (Auto) Neut % (Auto) Lymph % (Auto) [place] % (Auto) Eos % (Auto) Baso % (Auto) Neut # (Auto) Lymph # (Auto) [place] # (Auto) Eos # (Auto) Baso # (Auto) Immature Gran # (Auto) Absolute Nucleated RBC Nucleated RBC % (auto) PT INR APTT PTT Ratio VBG pH VBG pCO2 VBG pO2 VBG HCO3 VBG O2 Saturation VBG Base Excess Barometric Pressure Sodium Potassium Chloride Carbon Dioxide Anion Gap BUN Creatinine Est Cr Clr Drug Dosing Est GFR ( Amer) Est GFR (Non-Af Amer) BUN/Creatinine Ratio Glucose Lactate Calcium Magnesium Total Bilirubin AST ALT Alkaline Phosphatase Troponin I NT-Pro-B Natriuret Pep Total Protein Albumin Globulin Albumin/Globulin Ratio Procalcitonin Urine Color Dark Yellow Urine Appearance Turbid A Urine pH 5.0 Ur Specific [place] 1.018 Urine Protein 1+ H Urine Glucose (UA) Negative Urine Ketones Trace H Urine Blood 3+ H Urine Nitrite Negative Urine Bilirubin Negative Urine Urobilinogen Negative Ur Leukocyte Esterase 3+ H Urine WBC (Auto) >30 H Urine RBC (Auto) 5-10 H U Hyaline Cast (Auto) 0 U Epithel Cells (Auto) >30 H Urine Bacteria (Auto) Negative Urine Yeast Budding w/ Hyphae A COVID-19 Eval Order Covid19 [facility] SARS-CoV-2, RNA, NAAT NEGATIVE 11/05/20 11/05/20 11/05/20 17:51 17:51 17:51 WBC 16.58 H RBC 2.91 L Hgb 10.0 L Hct 30.5 L MCV 104.8 H MCH 34.4 H MCHC 32.8 RDW Std Deviation 64.2 H RDW Coeff of Ashley 16.6 H Plt Count 299 MPV 10.1 Immature Gran % (Auto) 1.9 Neut % (Auto) 87.0 Lymph % (Auto) 6.7 [place] % (Auto) 4.3 Eos % (Auto) 0.0 Baso % (Auto) 0.1 Neut # (Auto) 14.43 H Lymph # (Auto) 1.11 L [place] # (Auto) 0.72 H Eos # (Auto) 0.00 Baso # (Auto) 0.01 Immature Gran # (Auto) 0.31 H Absolute Nucleated RBC 0.03 H Nucleated RBC % (auto) 0.2 PT INR APTT PTT Ratio VBG pH VBG pCO2 VBG pO2 VBG HCO3 VBG O2 Saturation VBG Base Excess Barometric Pressure Sodium 137 Potassium Chloride 105 Carbon Dioxide 24 Anion Gap 8.0 BUN 60 H Creatinine 1.55 H Est Cr Clr Drug Dosing 36.0 Est GFR ( Amer) 46.6 Est GFR (Non-Af Amer) 40.2 BUN/Creatinine Ratio 38.4 H Glucose 84 Lactate Calcium 8.7 Magnesium Total Bilirubin 0.6 AST ALT 36 Alkaline Phosphatase 63 Troponin I < 0.015 NT-Pro-B Natriuret Pep 5279 H Total Protein 6.3 L Albumin 2.5 L Globulin 3.8 Albumin/Globulin Ratio 0.7 L Procalcitonin Cancelled Urine Color Urine Appearance Urine pH Ur Specific [place] Urine Protein Urine Glucose (UA) Urine Ketones Urine Blood Urine Nitrite Urine Bilirubin Urine Urobilinogen Ur Leukocyte Esterase Urine WBC (Auto) Urine RBC (Auto) U Hyaline Cast (Auto) U Epithel Cells (Auto) Urine Bacteria (Auto) Urine Yeast COVID-19 Eval Order SARS-CoV-2, RNA, NAAT 11/05/20 11/05/20 11/05/20 17:51 17:51 18:18 WBC RBC Hgb Hct MCV MCH MCHC RDW Std Deviation RDW Coeff of Ashley Plt Count MPV Immature Gran % (Auto) Neut % (Auto) Lymph % (Auto) [place] % (Auto) Eos % (Auto) Baso % (Auto) Neut # (Auto) Lymph # (Auto) [place] # (Auto) Eos # (Auto) Baso # (Auto) Immature Gran # (Auto) Absolute Nucleated RBC Nucleated RBC % (auto) PT 12.7 H INR 1.2 H APTT 28.5 PTT Ratio 1.0 VBG pH 7.34 L VBG pCO2 46 VBG pO2 25 VBG HCO3 24 VBG O2 Saturation < 60.0 VBG Base Excess -1.7 Barometric Pressure 732.7 Sodium Potassium Chloride Carbon Dioxide Anion Gap BUN Creatinine Est Cr Clr Drug Dosing Est GFR ( Amer) Est GFR (Non-Af Amer) BUN/Creatinine Ratio Glucose Lactate 2.1 H* Calcium Magnesium Total Bilirubin AST ALT Alkaline Phosphatase Troponin I NT-Pro-B Natriuret Pep Total Protein Albumin Globulin Albumin/Globulin Ratio Procalcitonin Urine Color Urine Appearance Urine pH Ur Specific [place] Urine Protein Urine Glucose (UA) Urine Ketones Urine Blood Urine Nitrite Urine Bilirubin Urine Urobilinogen Ur Leukocyte Esterase Urine WBC (Auto) Urine RBC (Auto) U Hyaline Cast (Auto) U Epithel Cells (Auto) Urine Bacteria (Auto) Urine Yeast COVID-19 Eval Order SARS-CoV-2, RNA, NAAT 11/05/20 11/05/20 11/05/20 19:07 19:07 Unknown WBC RBC Hgb Hct MCV MCH MCHC RDW Std Deviation RDW Coeff of [place] Plt Count MPV Immature Gran % (Auto) Neut % (Auto) Lymph % (Auto) [place] % (Auto) Eos % (Auto) Baso % (Auto) Neut # (Auto) Lymph # (Auto) [place] # (Auto) Eos # (Auto) Baso # (Auto) Immature Gran # (Auto) Absolute Nucleated RBC Nucleated RBC % (auto) PT INR APTT PTT Ratio VBG pH VBG pCO2 VBG pO2 VBG HCO3 VBG O2 Saturation VBG Base Excess Barometric Pressure Sodium Potassium 5.3 H Chloride Carbon Dioxide Anion Gap BUN Creatinine Est Cr Clr Drug Dosing Est GFR ( Amer) Est GFR (Non-Af Amer) BUN/Creatinine Ratio Glucose Lactate 1.4 Calcium Magnesium 2.5 H Total Bilirubin AST 23 ALT Alkaline Phosphatase Troponin I NT-Pro-B Natriuret Pep Total Protein Albumin Globulin Albumin/Globulin Ratio Procalcitonin 0.21 Urine Color Urine Appearance Urine pH Ur Specific [place] Urine Protein Urine Glucose (UA) Urine Ketones Urine Blood Urine Nitrite Urine Bilirubin Urine Urobilinogen Ur Leukocyte Esterase Urine WBC (Auto) Urine RBC (Auto) U Hyaline Cast (Auto) U Epithel Cells (Auto) Urine Bacteria (Auto) Urine Yeast COVID-19 Eval Order SARS-CoV-2, RNA, NAAT 11/06/20 11/06/20 07:48 07:48 WBC 9.39 RBC 2.73 L Hgb 9.3 L Hct 28.6 L MCV 104.8 H MCH 34.1 H MCHC 32.5 RDW Std Deviation 63.9 H RDW Coeff of Ashley 16.7 H Plt Count 236 MPV 9.8 Immature Gran % (Auto) Neut % (Auto) Lymph % (Auto) [place] % (Auto) Eos % (Auto) Baso % (Auto) Neut # (Auto) Lymph # (Auto) [place] # (Auto) Eos # (Auto) Baso # (Auto) Immature Gran # (Auto) Absolute Nucleated RBC 0.02 H Nucleated RBC % (auto) 0.3 PT INR APTT PTT Ratio VBG pH VBG pCO2 VBG pO2 VBG HCO3 VBG O2 Saturation VBG Base Excess Barometric Pressure Sodium 136 Potassium 5.3 H Chloride 106 Carbon Dioxide 22 Anion Gap 9.0 BUN 62 H Creatinine 1.65 H Est Cr Clr Drug Dosing 33.8 Est GFR ( Amer) 43.2 Est GFR (Non-Af Amer) 37.3 BUN/Creatinine Ratio 37.7 H Glucose 129 H Lactate Calcium 8.6 Magnesium Total Bilirubin AST ALT Alkaline Phosphatase Troponin I NT-Pro-B Natriuret Pep Total Protein Albumin Globulin Albumin/Globulin Ratio Procalcitonin Urine Color Urine Appearance Urine pH Ur Specific [place] Urine Protein Urine Glucose (UA) Urine Ketones Urine Blood Urine Nitrite Urine Bilirubin Urine Urobilinogen Ur Leukocyte Esterase Urine WBC (Auto) Urine RBC (Auto) U Hyaline Cast (Auto) U Epithel Cells (Auto) Urine Bacteria (Auto) Urine Yeast COVID-19 Eval Order SARS-CoV-2, RNA, NAAT Medications Administered Current Inpatient Medications Acetaminophen (Acetaminophen 325 Mg Tab) 650 mg PO Q4H PRN PRN Reason: Pain or Fever Stop: 12/05/20 22:19 Albuterol (Albut/Ipratrop 3mg/0.5mg Neb 3 Ml Vial) 3 ml NEB QIDR [facility] Stop: 12/05/20 22:44 Last Admin: 11/06/20 07:06 Dose: 3 ml Documented by: Apixaban (Apixaban 2.5 Mg Tab) 2.5 mg PO BID [facility] Stop: 12/05/20 22:19 Last Admin: 11/06/20 07:35 Dose: 2.5 mg Documented by: Buspirone HCl (Buspirone 5 Mg Tab) 5 mg PO BID [facility] Stop: 12/05/20 22:19 Last Admin: 11/06/20 07:35 Dose: 5 mg Documented by: Cyanocobalamin (Cyanocobalamin 500 Mcg Tablet (Vitamin B-12)) 1,000 mcg PO QAM [facility] Stop: 12/06/20 08:59 Last Admin: 11/06/20 07:34 Dose: 1,000 mcg Documented by: Fluticasone/Vilanterol (Fluticasone/Vilanterol 200/25mcg 14 Puffs/Inhaler) 1 puffs INH DAILY [facility] Stop: 12/06/20 08:59 Last Admin: 11/06/20 07:32 Dose: 1 puffs Documented by: Folic Acid (Folic Acid 400 Mcg Tab) 800 mcg PO QAM [facility] Stop: 12/06/20 08:59 Last Admin: 11/06/20 07:33 Dose: 800 mcg Documented by: Guaifenesin (Guaifenesin 600 Mg Tabcr) 600 mg PO Q12 [facility] Stop: 12/05/20 22:19 Last Admin: 11/06/20 07:33 Dose: 600 mg Documented by: Heparin Sodium (Beef Lung) (Heparin 10 Unit/Ml 5 Ml Flush) 5 ml FLUSH PRN PRN PRN Reason: Flush Stop: 12/06/20 00:56 Last Admin: 11/06/20 01:35 Dose: 5 ml Documented by: Piperacillin Sod/Tazobactam (Sod 3.375 gm/ Dextrose) 115 mls @ 28.75 mls/hr IV Q8H [facility]; Protocol Stop: 11/13/20 03:59 Last Admin: 11/06/20 04:47 Dose: 28.8 mls/hr Documented by: Azithromycin 500 mg/ Dextrose 255 mls @ 125 mls/hr IV Q24H [facility] Stop: 11/12/20 23:29 Last Infusion: 11/06/20 01:33 Dose: Infused Documented by: Methylprednisolone 40 mg/ (Syringe) 0.64 mls @ 1.5 mls/min IV Q8H [facility] Stop: 12/06/20 05:59 Last Admin: 11/06/20 05:29 Dose: 1.5 mls/min Documented by: Lorazepam (Lorazepam 0.5 Mg Tab) 0.5 mg PO DAILY PRN PRN Reason: Anxiety Stop: 12/05/20 22:19 Melatonin (Melatonin 3 Mg Tab) 9 mg PO [facility] Stop: 12/05/20 22:19 Last Admin: 11/05/20 23:25 Dose: 9 mg Documented by: Metoprolol Succinate (Metoprolol Succ 25mg Ext Rel Tab) 75 mg PO [facility] Stop: 12/06/20 08:59 Last Admin: 11/06/20 07:33 Dose: 75 mg Documented by: Miscellaneous Information (Piperacill/Tazobac Consult Active) 1 ea N/A UD PRN PRN Reason: Consult Stop: 12/05/20 22:19 Montelukast Sodium (Montelukast Sodium 10 Mg Tablet) 10 mg PO [facility] Stop: 12/06/20 08:59 Last Admin: 11/06/20 07:34 Dose: 10 mg Documented by: Ondansetron HCl (Ondansetron Inj 2 Mg/Ml 2 Ml Vial) 4 mg IV Q6H PRN PRN Reason: Nausea Stop: 12/05/20 22:19 Pravastatin Sodium (Pravastatin Sod 20 Mg Tab) 20 mg PO QPM [facility] Stop: 12/05/20 22:19 Last Admin: 11/05/20 23:21 Dose: 20 mg Documented by: Trazodone HCl (Trazodone Hcl 50 Mg Tab) 50 mg PO HS [facility] Stop: 12/05/20 22:19 Last Admin: 11/05/20 23:20 Dose: 50 mg Documented by: Umeclidinium [place] (Umeclidinium [place] 62.5mcg/Blister 7 Puffs/Inhaler) [facility] Stop: 12/06/20 08:59 Last Admin: 11/06/20 07:32 Dose: 1 puffs Documented by: Vitamin D (Cholecalciferol 1,000 Units 25 Mcg Tab) 2,000 units PO QAM [facility] Stop: 12/06/20 08:59 Last Admin: 11/06/20 07:33 Dose: 2,000 units Documented by: PG Care Time/CCT Total # of Minutes Spent Total Time Spent with Patient: Total time spent is greater than 50% in coordination of care (as documented) at patient's floor/unit and/or counseling patient: Coding Level of Care Code 29327 Subseq Hosp Care Lvl 2 Diagnoses Acute and chronic respiratory failure with hypoxia J96.21 Pneumonia J18.9 Laterality: left Lung location: unspecified part of lung Pneumonia type: due to unspecified organism COPD exacerbation J44.1 Atrial fibrillation I48.91 Atrial fibrillation type: unspecified Anticoagulant long-term use Z79.01 Anxiety F41.9 Hyperkalemia E87.5 (1) Atrial fibrillation Atrial fibrillation type: unspecified Qualified Code(s): I48.91 - Unspecified atrial fibrillation (2) Pneumonia Laterality: left Lung location: unspecified part of lung Pneumonia type: due to unspecified organism Qualified Code(s): J18.9 - Pneumonia, unspecified organism
--- NOTE | 2020-11-06 12:48 | Palliative Care Consultation ---
Date of Consultation November 06, 2020 Assessment & Plan (1) Dyspnea: Will restart oxycodone which has been effective for symptom relief. We discussed using this at home so that he has a plan when he gets short of breath and feels less like he would need to come to the hospital. (2) Anxiety: Per his daughter, Ally, he has a tendency to be anxious which is definitely worse with shortness of breath. He does get relief with lorazepam. (3) Palliative care encounter: I had a long talk with Leo and with Ally by phone. Leo clearly would prefer to be at home and does not want resuscitation if his pulse or breathing would stop. We discussed again the support available through hospice and that the meds that he found helpful could be adjusted to improve his comfort at home. It is very difficult for him when he feels so short of breath and afraid and wants someone to help him. Will continue to follow and work on a plan that he and his family are comfortable with. Discussed with Dr. Vasquez. (4) Acute and chronic respiratory failure with hypoxia: (5) COPD (chronic obstructive pulmonary disease): COPD type: COPD with acute exacerbation Qualified Code(s): J44.1 - Chronic obstructive pulmonary disease with (acute) exacerbation History of Present Illness Reason for Consultation: goals of care Requesting Physician: Dr. Vasquez Attending Physician: Delio Vasquez, History of Present Illness 85 yo gentleman with COPD and pneumonia who had been discharged on 11/03 to home. He was readmitted with complaint of feeling short of breath and having difficulty expectorating sputum. He lives with his who is debilitated and on hospice care. His daughter, Ally, lives nearby and has been their primary caregiver. We had started oral concentrate oxycodone for relief of his air hunger prior to discharge. He reports that he did try that and it helped his shortness of breath some but he gets very anxious when he feels short of breath. He reports feeling better today and says that he slept better last night than he has in a long time. He has been resistant to hospice care because he feels better being able to come to the hospital when he is short of breath and anxious. Allergies Allergy/AdvReac Type Severity Reaction Status Date / Time tamsulosin Allergy Unknown Unknown Verified 11/05/20 18:00 cilostazol AdvReac Intermediate dizziness, Verified 11/05/20 18:00 palpitations diltiazem AdvReac Intermediate dizziness, Verified 11/05/20 18:00 palpitations simvastatin AdvReac Mild dizziness Verified 11/05/20 18:00 Home Medications Medication Instructions Recorded Confirmed Type cholecalciferol (vitamin D3) 2,000 units PO QAM 10/03/19 11/05/20 History [Vitamin D3] cyanocobalamin (vitamin B-12) 1,000 mcg PO QAM 10/03/19 11/05/20 History sodium chloride 7 % for 4 ml INH BID #240 ml 02/23/20 11/05/20 Rx nebulization potassium chloride 10 mEq 10 meq PO Q2D #30 cap 03/09/20 11/05/20 Rx capsule,extended release folic acid 800 mcg PO QAM 03/31/20 11/05/20 History lorazepam 0.5 mg PO DAILY PRN 03/31/20 11/05/20 History melatonin 10 mg PO HS 03/31/20 11/05/20 History apixaban 2.5 mg tablet 2.5 mg PO BID #180 tab 04/17/20 11/05/20 Rx Dulera 1 puff INHALATION BID 04/26/20 11/05/20 History metoprolol succinate 75 mg PO QAM 04/26/20 11/05/20 History miscellaneous medical supply #1 ea 05/17/20 07/10/20 Rx albuterol sulfate 90 mcg/actuation 2 puff INHALATION QID PRN #18 g 06/07/20 11/05/20 Rx aerosol inhaler pravastatin 20 mg tablet 20 mg PO QPM #90 tab 07/18/20 11/05/20 Rx buspirone 5 mg tablet 5 mg PO BID #60 tab 07/19/20 11/05/20 Rx prednisone 10 mg tablet 10 mg PO QAM #90 tab 07/19/20 11/05/20 Rx ipratropium 0.5 mg-albuterol 3 mg 3 ml INHALATION TID #180 ml 07/20/20 11/05/20 Rx (2.5 mg base)/3 mL nebulization soln furosemide 20 mg PO Q2D 10/30/20 11/05/20 History trazodone 50 mg PO HS 10/30/20 11/05/20 History montelukast 10 mg tablet 10 mg PO QAM #90 tab 11/03/20 11/05/20 Rx Spiriva Respimat 2 puff INHALATION QAM 11/05/20 11/05/20 History Patient History Medical History Actinic keratosis Anemia Ankle edema, bilateral Pt admits to eating salty snacks lately. Advised to avoid salt. 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 Initially in RVR, but spontaneously converted; started on Metoprolol and Eliquis. Eliquis discontinued during admission 03/08/19 due to hematuria. Pulmonary emphysema Pulmonary nodule Sinus tachycardia SOB (shortness of breath) UTI (urinary tract infection) Vitamin D deficiency Weight loss Surgical History History of appendectomy History of colonoscopy History of cystoscopy WITH STENT, during admission 03/2019 History of lithotripsy History of tonsillectomy Hx of transurethral resection of prostate Family History Mother Cancer thyroid Brother Myocardial infarction Prostate cancer Father No problems noted. Other Family history non-contributory No significant family history Denies family history of Stroke Social History Smoking Status: Former smoker Cigarettes Per Day: 20; Second Hand Exposure: No; Hx Alcohol Use: No Hx Substance Use: No Preferred Language: [place] Communication Ability: Effective Pediatric Social Worker Required: No Beliefs That Will Affect Care: None marital status: Current Living Situation: Spouse and Family Current Living Situation Comment: currently has home health services current occupational status: retired Feels Safe at Home: Yes Safety Concerns: Feels Safe At This Time Seatbelt Use: always Sunscreen Use: Yes Assistive Devices: Oxygen - Continuous Review of Systems Review of Systems: [place] Symptom Assessment Scale Pain 0/3 Dyspnea 1/3 Nausea 0/3 Anxiety 2/3 Anorexia 1/3 Fatigue 3/3 Palliative Performance Score 30% Physical Exam Constitutional: no acute distress ENMT: Mouth: + dry oral mucous membranes Respiratory: + uses accessory muscles O2 4L with face mask Gastrointestinal (Abdomen): Inspection/Auscultation: + abdomen distended Percussion/Palpation: abdomen nontender Musculoskeletal: Extremities: + muscle atrophy Neurologic: moves all extremities Psychiatric: Orientation: alert and oriented x 3 Results & Data ([facility]) Vital Signs (Past 12 Hours) Vital Signs Temp Pulse Resp BP Pulse Ox 11/06/20 11:34 97.7 F 113 H 16 137/69 98 11/06/20 11:13 72 18 97 11/06/20 07:29 97.5 F L 96 H 18 129/69 98 11/06/20 07:06 103 H 18 93 11/06/20 04:00 98.1 F 57 L 20 122/71 98 PG Care Time/CCT Total # of Minutes Spent Total Time Spent with Patient: Total time spent is greater than 50% in coordination of care (as documented) at patient's floor/unit and/or counseling patient: Total time spent 70min with more than 50% of time spent on symptom management, goals of care, code status, coordination of care and family support. Coding Level of Care Code 70179 Inpt Consult Level 4 Diagnoses Dyspnea R06.00 Anxiety F41.9 Palliative care encounter Z51.5 Acute and chronic respiratory failure with hypoxia J96.21 COPD (chronic obstructive pulmonary disease) J44.1 COPD type: COPD with acute exacerbation Time Spent (min) 70
--- NOTE | 2020-11-06 13:21 | Electrocardiogram Report ---
Test Reason : Blood Pressure : / mmHG Vent. Rate : 121 BPM Atrial Rate : 136 BPM P-R Int : 000 ms QRS Dur : 088 ms QT Int : 334 ms P-R-T Axes : 000 -38 225 degrees QTc Int : 474 ms Atrial fibrillation with rapid ventricular response Left axis deviation Anterolateral infarct (cited on or before 05-NOV-2020) Abnormal ECG When compared with ECG of 30-OCT-2020 12:21, No significant change was found Confirmed by Carl Kitchen ([id number]) on 11/06/2020 1:21:04 PM Referred By: REFERRED SELF Confirmed By:Carl Kitchen
[2020-11-06] MEDS ORDERED: SODIUM CHLORIDE 0.65% NA SOLN 45 ML (OCEAN) ONE (13:22)
[2020-11-06] MEDS: ACETAMINOPHEN 325 MG TAB PO PRN (20:16)
[2020-11-06] MEDS: traZODone HCL 50 MG TAB PO SCH (20:17)
[2020-11-06] MEDS: MELATONIN 3 MG TAB PO SCH (20:52)
[2020-11-06] MEDS: PRAVASTATIN SOD 20 MG TAB PO SCH (20:53)
[2020-11-06] MEDS: AZITHROMYCIN 500 MG in DEXTROSE 5% 250 ML IV SCH (23:40)
[2020-11-07] MEDS: methylPREDNISolone 40 MG in SYRINGE 0 ML IV SCH ×2 (05:15→13:11)
[2020-11-07] MEDS: PIPERACILLIN/TAZOBACTAM 3.375 GM in DEXTROSE 5% 100 ML IV SCH ×3 (05:15→20:11)
[2020-11-07 06:50] LABS: BUN Creatinine Ratio 32.5 (10-20); Calcium 8.6 mg/dl (8.5-10.1); Creatinine Clr Calc Pharmacy 24.5 ml/min; Est GFR (African American) 30.9; Est GFR (Non-African American) 26.6; Potassium 5.3 mmol/L (3.5-5.1)
[2020-11-07] MEDS: ALBUT/IPRATROP 3MG/0.5MG NEB 3 ML VIAL NEB SCH ×4 (07:31→19:08)
[2020-11-07] MEDS ORDERED: POTASSIUM CHLORIDE 10 MEQ TABCR PO SCH (09:00)
[2020-11-07] MEDS: FLUTICASONE/VILANTEROL 200/25MCG 14 PUFFS/INHALER INH SCH (09:19)
[2020-11-07] MEDS: UMECLIDINIUM BROMIDE 62.5MCG/BLISTER 7 PUFFS/INHALER INH SCH (09:19)
[2020-11-07] MEDS: APIXABAN 2.5 MG TAB PO SCH ×2 (09:20→20:14)
[2020-11-07] MEDS: guaiFENesin 600 MG TABCR PO SCH ×2 (09:20→20:14)
[2020-11-07] MEDS: FOLIC ACID 400 MCG TAB PO SCH (09:21)
[2020-11-07] MEDS: MONTELUKAST SODIUM 10 MG TABLET PO SCH (09:21)
[2020-11-07] MEDS: busPIRone 5 MG TAB PO SCH ×2 (09:22→20:15)
[2020-11-07] MEDS: LORazepam 0.5 MG TAB PO PRN ×2 (10:00→20:13)
[2020-11-07] MEDS: METOPROLOL SUCC 25MG EXT REL TAB PO SCH (10:11)
[2020-11-07] MEDS: CYANOCOBALAMIN 500 MCG TABLET (VITAMIN B-12) PO SCH (10:12)
[2020-11-07] MEDS: CHOLECALCIFEROL 1,000 UNITS 25 MCG TAB PO SCH (10:12)
--- NOTE | 2020-11-07 13:31 | Palliative Care Progress Note ---
Date of Service November 07, 2020 Assessment & Plan (1) Dyspnea: Variable. He gets relief with oxycodone and increased O2 flow. He admits that there is a definite anxiety component to this. (2) Anxiety: He feels that his nerves are bad and feels safer in the hospital with respect to relief of his dyspnea. He has not used lorazepam. Will do trial dose now. If he tolerates it in terms of mental status and sedation, would consider more regular use for better control of anxiety in the short term. Could consider SSRI in the detention. (3) Palliative care encounter: Long discussion with him about a plan for going home. He does not feel ready today and anxiety increases just talking about it. We talked about using ativan to help his nerves with a plan for oxycodone and possibly ativan when he is short of breath at home. We discussed hospice care and I assured him that he can return to the hospital if his symptoms can't be managed by hospice at home. He will consider. I spoke with Ally on the phone. She supports him being on hospice and agrees with plan. Will follow. (4) Acute and chronic respiratory failure with hypoxia: (5) Atrial fibrillation: (6) Pneumonia: (7) COPD (chronic obstructive pulmonary disease): Admission and Anticipated Discharge Date Admission Date: November 05, 2020 Subjective Feels tired today. Asked for O2 to be turned up to 4L. He does have improvement in dyspnea with increased O2. Denies pain. Has not used oxycodone. LBM 2/1. Review of Systems Review of Systems: [place] Symptom Assessment Scale Pain 0/3 Dyspnea 1/3 Nausea 0/3 Anorexia 1/3 Fatigue 2/3 Anxiety 2/3 Palliative Performance Score 30% Physical Exam Constitutional: + frail appearing; no acute distress ENMT: Mouth: + dry oral mucous membranes Respiratory: normal respiratory effort; no labored breathing O2 4L with face mask per his preference Gastrointestinal (Abdomen): Inspection/Auscultation: + abdomen distended Percussion/Palpation: abdomen nontender Musculoskeletal: Extremities: + muscle atrophy Skin: warm and dry Psychiatric: Orientation: alert and oriented x 3 Affect: + anxious affect Results & Data ([facility]) Vital Signs (Past 12 Hours) Vital Signs Temp Pulse Resp BP BP Pulse Ox 11/07/20 11:19 97.9 F 124 H 20 114/73 96 11/07/20 11:17 95 H 20 91 11/07/20 07:31 80 18 92 11/07/20 07:12 97.7 F 100 H 20 116/67 98 11/07/20 03:01 97.7 F 76 18 116/69 97 PG Care Time/CCT Total # of Minutes Spent Total Time Spent with Patient: Total time spent is greater than 50% in content coordinator rdination of care (as documented) at patient's floor/unit and/or counseling patient: total time spent 40 minutes with more than 50% of time spent on plan of care, symptom management, support and coordination of care with family, RN and Dr. Vasquez. Coding Level of Care Code 46122 Subseq Hosp Care Lvl 3 Diagnoses Dyspnea R06.00 Anxiety F41.9 Palliative care encounter Z51.5 Acute and chronic respiratory failure with hypoxia J96.21 Atrial fibrillation I48.91 Atrial fibrillation type: unspecified Pneumonia J18.9 Laterality: left Lung location: unspecified part of lung Pneumonia type: due to unspecified organism COPD (chronic obstructive pulmonary disease) J44.1 COPD type: COPD with acute exacerbation (1) Atrial fibrillation Atrial fibrillation type: unspecified Qualified Code(s): I48.91 - Unspecified atrial fibrillation (2) Pneumonia Laterality: left Lung location: unspecified part of lung Pneumonia type: due to unspecified organism Qualified Code(s): J18.9 - Pneumonia, unspecified organism (3) COPD (chronic obstructive pulmonary disease) COPD type: COPD with acute exacerbation Qualified Code(s): J44.1 - Chronic obstructive pulmonary disease with (acute) exacerbation
--- NOTE | 2020-11-07 14:38 | Hospitalist Progress Note ---
Date of Service November 07, 2020 Assessment & Plan (1) Acute and chronic respiratory failure with hypoxia: Acute on chronic respiratory failure with hypoxia/pneumonia/COPD exacerbation- Status post recent hospitalization from 10/30-11/03 for similar process continue Zosyn and Zithromax x 5 days total Methylprednisolone 40 mg IV every 8 hours cut to q12 Duonebs every 4 hours while awake and every 2 hours when necessary. appreciate palliative consult continue morphine and Ativan PRN for dyspnea (2) Pneumonia: See above no fever, minimal cough would give abx for 5 days, change to PO on discharge (3) COPD exacerbation: See above no wheezing or distress will cut Solu Medrol to q12 (4) Atrial fibrillation: Atrial fibrillation/long-term anticoagulant use- Continue apixaban 2.5 mg p.o. twice daily, metoprolol succinate (5) Anticoagulant long-term use: See above (6) Anxiety: Continue buspirone as needed lorazepam and trazodone. (7) Hyperkalemia: K is 5.3 stop PO replacement gave Lasix IV 11/06 repeat today is still 5.3 but there was slight hemolysis, likely falsely higher repeat tomorrow (8) Chronic respiratory failure with hypoxia: stable on 2L (9) Chronic kidney disease, stage 3: Cr is 2.1 today, repeat tomorrow making urine via tong Admission and Anticipated Discharge Date Admission Date: November 05, 2020 Subjective patient breathing a little better today he says the Ativan helps with his anxiety and dyspnea d/w Dr. Mcgregor, working on finding a regimen that can keep patient comfortable at home discussed with him that we will not zendejas him, want to be sure he won't zendejas back to hospital he is eating okay, no great making urine, had a BM yesterday no chest pain, minimal cough, no fever K remains at 5.3 despite Lasix yesterday, of note, there was slight hemolysis which could raise it Cr went from 1.5 to 2.1 with Lasix, hold any further dosing Review of Systems Review of Systems: All systems reviewed & are unremarkable except as noted in Subjective Respiratory: + cough, + dyspnea and + dyspnea on exertion Physical Exam Constitutional: well developed, + frail appearing and comfortable; no acute distress Neck: trachea midline, no thyromegaly Respiratory: normal respiratory effort; no respiratory distress and no labored breathing Auscultation: + diminished lung sounds and + crackles Cardiovascular: Rate/Rhythm: regular rate and + irregularly irregular Heart Sounds: normal S1 and normal S2; no murmur Vessels: no JVD Extremities: normal capillary refill; no edema Gastrointestinal (Abdomen): normal bowel sounds, soft, nontender, no hepatosplenomegaly Musculoskeletal: Head/Neck/Chest: normocephalic, head atraumatic and neck supple Extremities: + abnormal strength (generalized weakness) and + muscle atrophy; no cyanosis and no petechiae Skin: no rashes, warm and dry Neurologic: normal touch/pain/proprioception, CN's II-XI intact bilaterally, moves all extremities and awake; no focal motor deficits Psychiatric: A+Ox3, euthymic affect Lymphatic: no cervical or axillary lymphadenopathy Results & Data Results & Data ([facility]) Vital Signs (Past 12 Hours) Vital Signs Temp Pulse Resp BP BP Pulse Ox 11/07/20 11:19 36.6 C 124 H 20 114/73 96 11/07/20 11:17 95 H 20 91 11/07/20 07:31 80 18 92 11/07/20 07:12 36.5 C 100 H 20 116/67 98 11/07/20 03:01 36.5 C 76 18 116/69 97 Laboratory Results Laboratory Results - last 24 hr 11/06/20 11/07/20 20:25 05:50 Sodium 135 L Potassium 5.3 H Chloride 106 Carbon Dioxide 24 Anion Gap 5.0 BUN 71 H Creatinine 2.18 H D Est Cr Clr Drug Dosing 24.5 Est GFR ( Amer) 30.9 Est GFR (Non-Af Amer) 26.6 BUN/Creatinine Ratio 32.5 H Glucose 131 H POC Glucose 147 H Calcium 8.6 Specimen Hemolysis Medications Administered Current Inpatient Medications Acetaminophen (Acetaminophen 325 Mg Tab) 650 mg PO Q4H PRN PRN Reason: Pain or Fever Stop: 12/05/20 22:19 Last Admin: 11/06/20 20:16 Dose: 650 mg Documented by: Albuterol (Albut/Ipratrop 3mg/0.5mg Neb 3 Ml Vial) 3 ml NEB QIDR MARS Stop: 12/05/20 22:44 Last Admin: 11/07/20 11:16 Dose: 3 ml Documented by: Apixaban (Apixaban 2.5 Mg Tab) 2.5 mg PO BID [facility] Stop: 12/05/20 22:19 Last Admin: 11/07/20 09:20 Dose: 2.5 mg Documented by: Buspirone HCl (Buspirone 5 Mg Tab) 5 mg PO BID [facility] Stop: 12/05/20 22:19 Last Admin: 11/07/20 09:22 Dose: 5 mg Documented by: Cyanocobalamin (Cyanocobalamin 500 Mcg Tablet (Vitamin B-12)) 1,000 mcg PO QAM [facility] Stop: 12/06/20 08:59 Last Admin: 11/07/20 10:12 Dose: 1,000 mcg Documented by: Fluticasone/Vilanterol (Fluticasone/Vilanterol 200/25mcg 14 Puffs/Inhaler) 1 puffs INH DAILY [facility] Stop: 12/06/20 08:59 Last Admin: 11/07/20 09:19 Dose: 1 puffs Documented by: Folic Acid (Folic Acid 400 Mcg Tab) 800 mcg PO QAM [facility] Stop: 12/06/20 08:59 Last Admin: 11/07/20 09:21 Dose: 800 mcg Documented by: Guaifenesin (Guaifenesin 600 Mg Tabcr) 600 mg PO Q12 [facility] Stop: 12/05/20 22:19 Last Admin: 11/07/20 09:20 Dose: 600 mg Documented by: Heparin Sodium (Beef Lung) (Heparin 10 Unit/Ml 5 Ml Flush) 5 ml FLUSH PRN PRN PRN Reason: Flush Stop: 12/06/20 00:56 Last Admin: 11/06/20 16:23 Dose: 5 ml Documented by: Piperacillin Sod/Tazobactam (Sod 3.375 gm/ Dextrose) 115 mls @ 28.75 mls/hr IV Q8H [facility]; Protocol Stop: 11/13/20 03:59 Last Admin: 11/07/20 12:12 Dose: 28.8 mls/hr Documented by: Azithromycin 500 mg/ Dextrose 255 mls @ 125 mls/hr IV Q24H [facility] Stop: 11/12/20 23:29 Last Infusion: 11/07/20 01:47 Dose: Infused Documented by: Methylprednisolone 40 mg/ (Syringe) 0.64 mls @ 1.5 mls/min IV Q8H [facility] Stop: 12/06/20 05:59 Last Admin: 11/07/20 13:11 Dose: 1.5 mls/min Documented by: Lorazepam (Lorazepam 0.5 Mg Tab) 0.5 mg PO BID PRN PRN Reason: Anxiety Stop: 12/05/20 22:19 Last Admin: 11/07/20 10:00 Dose: 0.5 mg Documented by: Melatonin (Melatonin 3 Mg Tab) 9 mg PO [facility] Stop: 12/05/20 22:19 Last Admin: 11/06/20 20:52 Dose: 9 mg Documented by: Metoprolol Succinate (Metoprolol Succ 25mg Ext Rel Tab) [facility] [place]: 12/06/20 08:59 Last Admin: 11/07/20 10:11 Dose: 75 mg Documented by: Miscellaneous Information (Piperacill/Tazobac Consult Active) 1 ea N/A UD PRN PRN Reason: Consult Stop: 12/05/20 22:19 Montelukast Sodium (Montelukast Sodium 10 Mg Tablet) 10 mg PO [facility] Stop: 12/06/20 08:59 Last Admin: 11/07/20 09:21 Dose: 10 mg Documented by: Ondansetron HCl (Ondansetron Inj 2 Mg/Ml 2 Ml Vial) 4 mg IV Q6H PRN PRN Reason: Nausea Stop: 12/05/20 22:19 Oxycodone HCl (Oxycodone Hcl 5 Mg/0.25 Ml Udp) 5 mg PO Q4H PRN PRN Reason: Pain Stop: 11/20/20 13:08 Pravastatin Sodium (Pravastatin Sod 20 Mg Tab) 20 mg PO QPM [facility] Stop: 12/05/20 22:19 Last Admin: 11/06/20 20:53 Dose: 20 mg Documented by: Trazodone HCl (Trazodone Hcl 50 Mg Tab) 50 mg PO [facility] Stop: 12/05/20 22:19 Last Admin: 11/06/20 20:17 Dose: 50 mg Documented by: Umeclidinium [place] (Umeclidinium [place] 62.5mcg/Blister 7 Puffs/Inhaler) 1 puffs INH [facility] Stop: 12/06/20 08:59 Last Admin: 11/07/20 09:19 Dose: 1 puffs Documented by: Vitamin D (Cholecalciferol 1,000 Units 25 Mcg Tab) 2,000 units PO QAM [facility] Stop: 12/06/20 08:59 Last Admin: 11/07/20 10:12 Dose: 2,000 units Documented by: PG Care Time/CCT Total # of Minutes Spent Total Time Spent with Patient: Total time spent is greater than 50% in coordination of care (as documented) at patient's floor/unit and/or counseling patient: Coding Level of Care Code 36545 Subseq Hosp Care Lvl 3 Diagnoses Acute and chronic respiratory failure with hypoxia J96.21 Pneumonia J18.9 Laterality: left Lung location: unspecified part of lung Pneumonia type: due to unspecified organism COPD exacerbation J44.1 Atrial fibrillation I48.91 Atrial fibrillation type: unspecified Anticoagulant long-term use Z79.01 Anxiety F41.9 Hyperkalemia E87.5 Chronic respiratory failure with hypoxia J96.11 Chronic kidney disease, stage 3 N18.3 (1) Atrial fibrillation Atrial fibrillation type: unspecified Qualified Code(s): I48.91 - Unspecified atrial fibrillation (2) Pneumonia Laterality: left Lung location: unspecified part of lung Pneumonia type: due to unspecified organism Qualified Code(s): J18.9 - Pneumonia, unspecified organism
[2020-11-07] MEDS: MELATONIN 3 MG TAB PO SCH (20:13)
[2020-11-07] MEDS: PRAVASTATIN SOD 20 MG TAB PO SCH (20:14)
[2020-11-07] MEDS: traZODone HCL 50 MG TAB PO SCH (20:14)
[2020-11-07] MEDS: AZITHROMYCIN 500 MG in DEXTROSE 5% 250 ML IV SCH (23:47)
[2020-11-08] MEDS ORDERED: LORazepam 0.5 MG TAB PO STA (01:00)
[2020-11-08] MEDS: PIPERACILLIN/TAZOBACTAM 3.375 GM in DEXTROSE 5% 100 ML IV SCH ×3 (04:59→20:26)
[2020-11-08] MEDS: methylPREDNISolone 40 MG in SYRINGE 0 ML IV SCH ×2 (05:01→17:36)
[2020-11-08 07:03] LABS: Calcium 9.3 mg/dl (8.5-10.1); Creatinine Clr Calc Pharmacy 25.1 ml/min; Est GFR (African American) 31.7; Est GFR (Non-African American) 27.4; Potassium 4.6 mmol/L (3.5-5.1)
[2020-11-08] MEDS: FOLIC ACID 400 MCG TAB PO SCH (07:30)
[2020-11-08] MEDS: METOPROLOL SUCC 25MG EXT REL TAB PO SCH (07:30)
[2020-11-08] MEDS: MONTELUKAST SODIUM 10 MG TABLET PO SCH (07:31)
[2020-11-08] MEDS: CHOLECALCIFEROL 1,000 UNITS 25 MCG TAB PO SCH (07:31)
[2020-11-08] MEDS: CYANOCOBALAMIN 500 MCG TABLET (VITAMIN B-12) PO SCH (07:31)
[2020-11-08] MEDS: busPIRone 5 MG TAB PO SCH ×2 (07:31→20:27)
[2020-11-08] MEDS: FLUTICASONE/VILANTEROL 200/25MCG 14 PUFFS/INHALER INH SCH (07:32)
[2020-11-08] MEDS: UMECLIDINIUM BROMIDE 62.5MCG/BLISTER 7 PUFFS/INHALER INH SCH (07:32)
[2020-11-08] MEDS: guaiFENesin 600 MG TABCR PO SCH ×2 (07:32→20:27)
[2020-11-08] MEDS: APIXABAN 2.5 MG TAB PO SCH ×2 (07:32→20:27)
[2020-11-08] MEDS: ALBUT/IPRATROP 3MG/0.5MG NEB 3 ML VIAL NEB SCH ×3 (07:56→19:24)
--- NOTE | 2020-11-08 11:23 | Hospitalist Progress Note ---
Date of Service November 08, 2020 Assessment & Plan (1) Acute and chronic respiratory failure with hypoxia: Acute on chronic respiratory failure with hypoxia/pneumonia/COPD exacerbation- Status post recent hospitalization from 10/30-11/03 for similar process continue Zosyn and Zithromax x 5 days total, today is day 4 Methylprednisolone 40 mg IV every 8 hours cut to q12 today, no wheezing Duonebs every 4 hours while awake and every 2 hours when necessary. appreciate palliative consult continue scheduled Ativan for anxiety, Oxycodone for dyspnea patient is end stage respiratory failure, needs home hospice his cough is extremely weak, lots of chest congestion he is only going to get worse from respiratory standpoint (2) Pneumonia: See above no fever, minimal cough would give abx for 5 days, today is day 4 (3) COPD exacerbation: See above no wheezing or distress will cut Solu Medrol to q12 and transition to Prednisone eventually (4) Atrial fibrillation: Atrial fibrillation/long-term anticoagulant use- Continue apixaban 2.5 mg p.o. twice daily, metoprolol succinate (5) Anticoagulant long-term use: See above (6) Anxiety: Continue buspirone as needed lorazepam and trazodone. big driving force in his discomfort, dyspnea trying to control with scheduled Ativan (7) Hyperkalemia: due to hemolysis (8) Chronic respiratory failure with hypoxia: stable on 4L (9) Chronic kidney disease, stage 3: stable (10) Pressure ulcer: Pressure-induced deep tissue damage of right buttock, unstageable, POA Admission and Anticipated Discharge Date Admission Date: November 05, 2020 Subjective patient says his breathing is a little worse, he says he needs more oxygen explained to him that his oxygen levels have been stable on 4L mask discussed that his symptoms are more dyspnea, anxiety d/w Dr. Mcgregor, will be on scheduled low dose Ativan, trying to avoid sedating too much patient is not eating well he has secretions in back of the throat, no strength to cough them up Review of Systems Review of Systems: All systems reviewed & are unremarkable except as noted in Subjective Respiratory: + cough, + chest congestion, + dyspnea, + dyspnea on exertion and + sputum production Psychiatric: + anxiety Physical Exam Constitutional: well developed, + frail appearing and comfortable; no acute distress Neck: trachea midline, no thyromegaly Respiratory: normal respiratory effort; no respiratory distress and no labored breathing Auscultation: + diminished lung sounds, + crackles and + rhonchi (weak cough) Cardiovascular: Rate/Rhythm: regular rate and + irregularly irregular Heart Sounds: normal S1 and normal S2; no murmur Vessels: no JVD Extremities: normal capillary refill; no edema Gastrointestinal (Abdomen): normal bowel sounds, soft, nontender, no hepatosplenomegaly Musculoskeletal: Head/Neck/Chest: normocephalic, head atraumatic and neck supple Extremities: + abnormal strength (generalized weakness) and + muscle atrophy; no cyanosis and no petechiae Skin: no rashes, warm and dry Neurologic: normal touch/pain/proprioception, CN's II-XI intact bilaterally, moves all extremities and awake; no focal motor deficits Psychiatric: Orientation: alert and oriented x 3 Affect: + anxious affect Lymphatic: no cervical or axillary lymphadenopathy Results & Data Results & Data ([facility]) Vital Signs (Past 12 Hours) Vital Signs Temp Pulse Pulse Resp BP BP Pulse Ox 11/08/20 07:57 78 15 96 11/08/20 07:55 102 H 11/08/20 07:32 36.4 C L 119 H 18 111/69 93 11/08/20 02:20 36.5 C 103 H 20 97/61 L 96 11/08/20 00:36 140 H PG Care Time/CCT Total # of Minutes Spent Total Time Spent with Patient: Total time spent is greater than 50% in coordination of care (as documented) at patient's floor/unit and/or counseling patient: Coding Level of Care Code 01953 Subseq Hosp Care Lvl 3 Diagnoses Acute and chronic respiratory failure with hypoxia J96.21 Pneumonia J18.9 Laterality: left Lung location: unspecified part of lung Pneumonia type: due to unspecified organism COPD exacerbation J44.1 Atrial fibrillation I48.91 Atrial fibrillation type: unspecified Anticoagulant long-term use Z79.01 Anxiety F41.9 Hyperkalemia E87.5 Chronic respiratory failure with hypoxia J96.11 Chronic kidney disease, stage 3 N18.3 Pressure ulcer L89.90 (1) Atrial fibrillation Atrial fibrillation type: unspecified Qualified Code(s): I48.91 - Unspecified atrial fibrillation (2) Pneumonia Laterality: left Lung location: unspecified part of lung Pneumonia type: due to unspecified organism Qualified Code(s): J18.9 - Pneumonia, unspecified organism
--- NOTE | 2020-11-08 14:54 | Palliative Care Progress Note ---
Date of Service November 08, 2020 Assessment & Plan (1) Dyspnea: Relieved with oxycodone. (2) Anxiety: Contributing to dyspnea. Would consider low dose routine dose of 0.25mg TID (3) Palliative care encounter: Plan is home with support of home care or hospice at home. Unfortunately, the dyspnea is very frightening for him and he feels most comfortable returning to the hospital though he has not wanted to have aggressive care. Hopefully, lorazepam will help to relieve some of his anxiety associated with the shortness of breath. His daughter is very supportive and is agreeable to current medicat ion plan. (4) Chronic respiratory failure with hypoxia: (5) COPD (chronic obstructive pulmonary disease): Admission and Anticipated Discharge Date Admission Date: November 05, 2020 Subjective [place] better yesterday with lorazepam. He did have an episode of dyspnea this afternoon and received oxycodone. He is sleepy but arousable now. He does note that it relieves his breathing. Review of Systems Review of Systems: [place] Symptom Assessment Scale Pain 0/3 Dyspnea 0/3 after oxycodone Drowsiness 2/3 Nausea 0/3 Anxiety 0/3 Palliative Performance Score 30% Physical Exam ENMT: Mouth: + dry oral mucous membranes Respiratory: no labored breathing moist cough Neurologic: not confused Genitourinary: Venegas catheter Results & Data ([facility]) Vital Signs (Past 12 Hours) Vital Signs Temp Pulse Pulse Resp BP Pulse Ox 11/08/20 13:12 104 H 18 100 11/08/20 11:49 97.5 F L 101 H 20 132/71 94 11/08/20 08:50 107 H 18 130/75 95 11/08/20 07:57 78 15 96 11/08/20 07:55 102 H 11/08/20 07:32 97.5 F L 119 H 18 111/69 93 PG Care Time/CCT Total # of Minutes Spent Total Time Spent with Patient: Total time spent is greater than 50% in c oordination of care (as documented) at patient's floor/unit and/or counseling patient: Coding Level of Care Code 61436 Subseq Hosp Care Lvl 2 Diagnoses Dyspnea R06.00 Anxiety F41.9 Palliative care encounter Z51.5 Chronic respiratory failure with hypoxia J96.11 COPD (chronic obstructive pulmonary disease) J44.1 COPD type: COPD with acute exacerbation (1) COPD (chronic obstructive pulmonary disease) COPD type: COPD with acute exacerbation Qualified Code(s): J44.1 - Chronic obstructive pulmonary disease with (acute) exacerbation
--- NOTE | 2020-11-08 16:03 | Electrocardiogram Report ---
Test Reason : Blood Pressure : / mmHG Vent. Rate : 124 BPM Atrial Rate : 117 BPM P-R Int : 000 ms QRS Dur : 086 ms QT Int : 280 ms P-R-T Axes : 000 005 167 degrees QTc Int : 402 ms Atrial fibrillation with rapid ventricular response Low voltage QRS Abnormal ECG When compared with ECG of 05-NOV-2020 17:10, ST no longer depressed in Inferior leads Confirmed by Carl Kitchen ([id number]) on 11/08/2020 4:03:38 PM Referred By: REFERRED SELF Confirmed By:Carl Kitchen
[2020-11-08] MEDS: LORazepam 0.5 MG TAB PO SCH (20:26)
[2020-11-08] MEDS: MELATONIN 3 MG TAB PO SCH (20:27)
[2020-11-08] MEDS: PRAVASTATIN SOD 20 MG TAB PO SCH (20:27)
[2020-11-08] MEDS: traZODone HCL 50 MG TAB PO SCH (20:27)
[2020-11-09] MEDS: AZITHROMYCIN 500 MG in DEXTROSE 5% 250 ML IV SCH (00:29)
[2020-11-09] MEDS: PIPERACILLIN/TAZOBACTAM 3.375 GM in DEXTROSE 5% 100 ML IV SCH ×3 (05:05→20:31)
[2020-11-09] MEDS: methylPREDNISolone 40 MG in SYRINGE 0 ML IV SCH ×2 (05:42→17:56)
[2020-11-09] MEDS: ALBUT/IPRATROP 3MG/0.5MG NEB 3 ML VIAL NEB SCH ×3 (07:11→19:55)
[2020-11-09] MEDS: UMECLIDINIUM BROMIDE 62.5MCG/BLISTER 7 PUFFS/INHALER INH SCH (08:39)
[2020-11-09] MEDS: FLUTICASONE/VILANTEROL 200/25MCG 14 PUFFS/INHALER INH SCH (08:40)
[2020-11-09] MEDS: guaiFENesin 600 MG TABCR PO SCH ×2 (08:40→20:25)
[2020-11-09] MEDS: busPIRone 5 MG TAB PO SCH ×2 (08:41→20:25)
[2020-11-09] MEDS: CYANOCOBALAMIN 500 MCG TABLET (VITAMIN B-12) PO SCH (08:41)
[2020-11-09] MEDS: FOLIC ACID 400 MCG TAB PO SCH (08:41)
[2020-11-09] MEDS: MONTELUKAST SODIUM 10 MG TABLET PO SCH (08:41)
[2020-11-09] MEDS: METOPROLOL SUCC 25MG EXT REL TAB PO SCH (08:41)
[2020-11-09] MEDS: APIXABAN 2.5 MG TAB PO SCH ×2 (08:41→20:25)
[2020-11-09] MEDS: CHOLECALCIFEROL 1,000 UNITS 25 MCG TAB PO SCH (08:41)
[2020-11-09] MEDS: LORazepam 0.5 MG TAB PO SCH ×3 (08:47→20:25)
--- NOTE | 2020-11-09 10:40 | Palliative Care Progress Note ---
Date of Service November 09, 2020 Assessment & Plan (1) Dyspnea: with acute on chronic respiratory failure. Symptoms relieved with oxycodone. (2) Anxiety: Improved with routine ativan dosing. Continue current regimen. (3) Palliative care encounter: I talked with Mr. Garcia about where we go from here. He tells me that he doesn't feel like he is improved enough to go home. We discussed that this may be his new baseline and that there are signs that his body is starting to wear out. He acknowledges this. When I asked him where he would want to be, he replied "Not in a home". His desire would be to return home. We talked again about the plan in place to address his symptoms at home and can be monitored and adjusted by hospice. He is agreeable to that. I spoke with Ally on the phone and she supports this decision. (4) Chronic respiratory failure with hypoxia: (5) COPD (chronic obstructive pulmonary disease): Admission and Anticipated Discharge Date Admission Date: November 05, 2020 Subjective Feels weak. Less drowsy today. He is alert enough to tell me about his [employer]umiko [employer]eger[employer] gender reveal green party last night. He continues to have variable dyspnea. No prn oxycodone since yesterday. Review of Systems Review of Systems: [place] Symptom Assessment Scale Pain 0/3 Dyspnea 2/3 Fatigue 2/3 Anxiety 1/3 Nausea 0/3 Anorexia 2/3 Palliative Performance Score 30% Physical Exam Constitutional: + ill appearing ENMT: Mouth: + dry oral mucous membranes Respiratory: + uses accessory muscles Gastrointestinal (Abdomen): Inspection/Auscultation: + abdomen distended Musculoskeletal: Extremities: + muscle atrophy Skin: ecchymosis Psychiatric: Orientation: oriented x 3 Results & Data ([facility]) Vital Signs (Past 12 Hours) Vital Signs Temp Pulse Pulse Resp BP BP Pulse Ox 11/09/20 09:00 92 H 11/09/20 07:26 97.7 F 95 H 20 113/67 97 11/09/20 07:11 79 18 98 11/09/20 03:33 97.9 F 98 H 20 115/72 100 11/09/20 00:21 103 H 11/08/20 22:52 97.9 F 105 H 20 101/65 91 PG Care Time/CCT Total # of Minutes Spent Total Time Spent with Patient: Total time spent is greater than 50% in coordination of care (as documented) at patient's floor/unit and/or counseling patient: total time spent 40 minutes with more than 50% of time spent on symptom management, goals of care, prognosis, family support and coordination of care with RN, hospitalist and case management. Coding Level of Care Code 21594 Subseq Hosp Care Lvl 3 Diagnoses Dyspnea R06.00 Anxiety F41.9 Palliative care encounter Z51.5 Chronic respiratory failure with hypoxia J96.11 COPD (chronic obstructive pulmonary disease) J44.1 COPD type: COPD with acute exacerbation (1) COPD (chronic obstructive pulmonary disease) COPD type: COPD with acute exacerbation Qualified Code(s): J44.1 - Chronic obstructive pulmonary disease with (acute) exacerbation
[2020-11-09] MEDS: PRAVASTATIN SOD 20 MG TAB PO SCH (20:25)
[2020-11-09] MEDS: MELATONIN 3 MG TAB PO SCH (20:25)
[2020-11-09] MEDS: traZODone HCL 50 MG TAB PO SCH (20:25)
--- NOTE | 2020-11-09 22:20 | Hospitalist Progress Note ---
Date of Service November 09, 2020 Assessment & Plan (1) Acute and chronic respiratory failure with hypoxia: Acute on chronic respiratory failure with hypoxia/pneumonia/COPD exacerbation- Status post recent hospitalization from 10/30-11/03 for similar process continue Zosyn and Zithromax x 5 days total, today is day 5 Methylprednisolone 40 mg IV every 8 hours cut to q12 2/3, no wheezing, plan to send home on Prednisone to decrease inflammation Duonebs every 4 hours while awake and every 2 hours when necessary. appreciate palliative consult continue scheduled Ativan for anxiety, Oxycodone for dyspnea patient is end stage respiratory failure, needs home hospice his cough is extremely weak, lots of chest congestion he is only going to get worse from respiratory standpoint (2) Pneumonia: See above no fever, minimal cough but this is because he lacks strength to cough up phlegm would give abx for 5 days, today is day 5 (3) COPD exacerbation: See above no wheezing or distress will cut Solu Medrol to q12 and transition to Prednisone eventually (4) Atrial fibrillation: Atrial fibrillation/long-term anticoagulant use- Continue apixaban 2.5 mg p.o. twice daily, metoprolol succinate (5) Anticoagulant long-term use: See above (6) Anxiety: Continue buspirone as needed lorazepam and trazodone. big driving force in his discomfort, dyspnea trying to control with scheduled Ativan (7) Hyperkalemia: due to hemolysis (8) Chronic respiratory failure with hypoxia: stable on 4L (9) Chronic kidney disease, stage 3: stable (10) Pressure ulcer: Pressure-induced deep tissue damage of right buttock, unstageable, POA Admission and Anticipated Discharge Date Admission Date: November 05, 2020 Subjective patient still with anxiety and dyspnea, no real improvement Dr. Mcgregor met with him and called his daughter, they agree with home hospice the issue is that his breathing is getting worse, more secretions in the back of the throat would try to get him home on 11/10 if possible they have all the equipment they need in terms of hospital bed and oxygen patient is not eating, just sleeping when he is not anxious or feeling short of breath Review of Systems Review of Systems: All systems reviewed & are unremarkable except as noted in Subjective Respiratory: + cough, + chest congestion, + dyspnea, + dyspnea on exertion, + sputum production and + wheezing Cardiovascular: no chest pain and no edema Gastrointestinal: + early satiety; no abdominal pain, no nausea, no vomiting, no constipation and no diarrhea/loose stools Physical Exam Constitutional: well developed, + frail appearing and comfortable; no acute distress Neck: trachea midline, no thyromegaly Respiratory: normal respiratory effort; no respiratory distress and no labored breathing Auscultation: + diminished lung sounds, + crackles and + rhonchi (weak cough) Cardiovascular: Rate/Rhythm: regular rate and + irregularly irregular Heart Sounds: normal S1 and normal S2; no murmur Vessels: no JVD Extremities: normal capillary refill; no edema Gastrointestinal (Abdomen): normal bowel sounds, soft, nontender, no hepatosplenomegaly Musculoskeletal: Head/Neck/Chest: normocephalic, head atraumatic and neck supple Extremities: + abnormal strength (generalized weakness) and + muscle atrophy; no cyanosis and no petechiae Skin: no rashes, warm and dry Neurologic: normal touch/pain/proprioception, CN's II-XI intact bilaterally, moves all extremities and awake; no focal motor deficits Psychiatric: Orientation: alert and oriented x 3 Affect: + anxious affect Lymphatic: no cervical or axillary lymphadenopathy Results & Data Results & Data ([facility]) Vital Signs (Past 12 Hours) Vital Signs Temp Pulse Pulse Resp BP BP Pulse Ox 11/09/20 19:57 58 L 18 91 11/09/20 19:00 36.4 C L 120 H 20 130/85 97 11/09/20 16:00 103 H 11/09/20 15:17 36.4 C L 89 20 117/71 98 11/09/20 14:15 107 H 20 97 11/09/20 10:59 36.3 C L 102 H 20 116/75 100 Medications Administered Current Inpatient Medications Acetaminophen (Acetaminophen 325 Mg Tab) 650 mg PO Q4H PRN PRN Reason: Pain or Fever Stop: 12/05/20 22:19 Last Admin: 11/06/20 20:16 Dose: 650 mg Documented by: Albuterol (Albut/Ipratrop 3mg/0.5mg Neb 3 Ml Vial) 3 ml NEB TIDR [facility] Stop: 12/08/20 12:59 Last Admin: 11/09/20 19:55 Dose: 3 ml Documented by: Apixaban (Apixaban 2.5 Mg Tab) 2.5 mg PO BID [facility] Stop: 12/05/20 22:19 Last Admin: 11/09/20 20:25 Dose: 2.5 mg Documented by: Buspirone HCl (Buspirone 5 Mg Tab) 5 mg PO BID [facility] Stop: 12/05/20 22:19 Last Admin: 11/09/20 20:25 Dose: 5 mg Documented by: Cyanocobalamin (Cyanocobalamin 500 Mcg Tablet (Vitamin B-12)) 1,000 mcg PO QAM [facility] Stop: 12/06/20 08:59 Last Admin: 11/09/20 08:41 Dose: Not Given Documented by: Fluticasone/Vilanterol (Fluticasone/Vilanterol 200/25mcg 14 Puffs/Inhaler) 1 puffs INH DAILY [facility] Stop: 12/06/20 08:59 Last Admin: 11/09/20 08:40 Dose: 1 puffs Documented by: Folic Acid (Folic Acid 400 Mcg Tab) 800 mcg PO QAM [facility] Stop: 12/06/20 08:59 Last Admin: 11/09/20 08:41 Dose: Not Given Documented by: Guaifenesin (Guaifenesin 600 Mg Tabcr) 600 mg PO Q12 [facility] Stop: 12/05/20 22:19 Last Admin: 11/09/20 20:25 Dose: 600 mg Documented by: Heparin Sodium (Beef Lung) (Heparin 10 Unit/Ml 5 Ml Flush) 5 ml FLUSH PRN PRN PRN Reason: Flush Stop: 12/06/20 00:56 Last Admin: 11/08/20 17:37 Dose: 5 ml Documented by: Piperacillin Sod/Tazobactam (Sod 3.375 gm/ Dextrose) 115 mls @ 28.75 mls/hr IV Q8H [facility]; Protocol Stop: 11/09/20 23:59 Last Admin: 11/09/20 20:31 Dose: 28.8 mls/hr Documented by: Azithromycin 500 mg/ Dextrose 255 mls @ 125 mls/hr IV Q24H [facility] Stop: 11/10/20 02:00 Last Infusion: 11/09/20 02:40 Dose: Infused Documented by: Methylprednisolone 40 mg/ (Syringe) 0.64 mls @ 1.5 mls/min IV Q12H [facility] Stop: 12/08/20 08:59 Last Admin: 11/09/20 17:56 Dose: 1.5 mls/min Documented by: Lorazepam (Lorazepam 0.5 Mg Tab) 0.5 mg PO BID PRN PRN Reason: Anxiety Stop: 12/05/20 22:19 Last Admin: 11/07/20 20:13 Dose: 0.5 mg Documented by: Lorazepam (Lorazepam 0.5 Mg Tab) 0.25 mg PO TID [facility] Stop: 12/08/20 20:59 Last Admin: 11/09/20 20:25 Dose: 0.25 mg Documented by: Melatonin (Melatonin 3 Mg Tab) 9 mg PO [facility] Stop: 12/05/20 22:19 Last Admin: 11/09/20 20:25 Dose: 9 mg Documented by: Metoprolol Succinate (Metoprolol Succ 25mg Ext Rel Tab) 75 mg PO QAM [facility] Stop: 12/06/20 08:59 Last Admin: 11/09/20 08:41 Dose: 75 mg Documented by: Miscellaneous Information (Piperacill/Tazobac Consult Active) 1 ea N/A UD PRN PRN Reason: Consult Stop: 11/09/20 23:59 Montelukast Sodium (Montelukast Sodium 10 Mg Tablet) [facility] [place] Stop: 12/06/20 08:59 Last Admin: 11/09/20 08:41 Dose: 10 mg Documented by: Ondansetron HCl (Ondansetron Inj 2 Mg/Ml 2 Ml Vial) 4 mg IV Q6H PRN PRN Reason: Nausea Stop: 12/05/20 22:19 Oxycodone HCl (Oxycodone Hcl 5 Mg/0.25 Ml Udp) 5 mg PO Q4H PRN PRN Reason: Pain Stop: 11/20/20 13:08 Last Admin: 11/09/20 21:59 Dose: 5 mg Documented by: Pravastatin Sodium (Pravastatin Sod 20 Mg Tab) 20 mg PO QPM [facility] Stop: 12/05/20 22:19 Last Admin: 11/09/20 20:25 Dose: 20 mg Documented by: Trazodone HCl (Trazodone Hcl 50 Mg Tab) 50 mg PO [facility] Stop: 12/05/20 22:19 Last Admin: 11/09/20 20:25 Dose: 50 mg Documented by: Umeclidinium [place] (Umeclidinium [place] 62.5mcg/Blister 7 Puffs/Inhaler) 1 puffs INH QAM [facility] Stop: 12/06/20 08:59 Last Admin: 11/09/20 08:39 Dose: 1 puffs Documented by: Vitamin D (Cholecalciferol 1,000 Units 25 Mcg Tab) 2,000 units PO QAM [facility] Stop: 12/06/20 08:59 Last Admin: 11/09/20 08:41 Dose: Not Given Documented by: PG Care Time/CCT Total # of Minutes Spent Total Time Spent with Patient: Total time spent is greater than 50% in coordination of care (as documented) at patient's floor/unit and/or counseling patient: Coding Level of Care Code 83268 Subseq Hosp Care Lvl 2 Diagnoses Acute and chronic respiratory failure with hypoxia J96.21 Pneumonia J18.9 Laterality: left Lung location: unspecified part of lung Pneumonia type: due to unspecified organism COPD exacerbation J44.1 Atrial fibrillation I48.91 Atrial fibrillation type: unspecified Anticoagulant long-term use Z79.01 Anxiety F41.9 Hyperkalemia E87.5 Chronic respiratory failure with hypoxia J96.11 Chronic kidney disease, stage 3 N18.3 Pressure ulcer L89.90 (1) Atrial fibrillation Atrial fibrillation type: unspecified Qualified Code(s): I48.91 - Unspecified atrial fibrillation (2) Pneumonia Laterality: left Lung location: unspecified part of lung Pneumonia type: due to unspecified organism Qualified Code(s): J18.9 - Pneumonia, unspecified organism
[2020-11-10] MEDS: LORazepam 0.5 MG TAB PO PRN ×2 (00:05→07:14)
[2020-11-10] MEDS ORDERED: Nursing to Pharmacy Communication SCH (01:30)
[2020-11-10] MEDS: AZITHROMYCIN 500 MG in DEXTROSE 5% 250 ML IV SCH (02:20)
[2020-11-10] MEDS: methylPREDNISolone 40 MG in SYRINGE 0 ML IV SCH ×2 (06:15→17:29)
[2020-11-10] MEDS: ALBUT/IPRATROP 3MG/0.5MG NEB 3 ML VIAL NEB SCH ×3 (07:00→19:04)
[2020-11-10] MEDS ORDERED: MoRPHine SULFATE 5 MG/0.25 ML UDP PO PRN (08:20)
[2020-11-10] MEDS: guaiFENesin 600 MG TABCR PO SCH (08:27)
[2020-11-10] MEDS: UMECLIDINIUM BROMIDE 62.5MCG/BLISTER 7 PUFFS/INHALER INH SCH (08:27)
[2020-11-10] MEDS: FLUTICASONE/VILANTEROL 200/25MCG 14 PUFFS/INHALER INH SCH (08:27)
[2020-11-10] MEDS: METOPROLOL SUCC 25MG EXT REL TAB PO SCH (08:27)
[2020-11-10] MEDS: FOLIC ACID 400 MCG TAB PO SCH (08:28)
[2020-11-10] MEDS: busPIRone 5 MG TAB PO SCH ×2 (08:28→20:12)
[2020-11-10] MEDS: APIXABAN 2.5 MG TAB PO SCH (08:28)
[2020-11-10] MEDS: MONTELUKAST SODIUM 10 MG TABLET PO SCH (08:28)
[2020-11-10] MEDS: CYANOCOBALAMIN 500 MCG TABLET (VITAMIN B-12) PO SCH (08:28)
[2020-11-10] MEDS: CHOLECALCIFEROL 1,000 UNITS 25 MCG TAB PO SCH (08:29)
[2020-11-10] MEDS: LORazepam 0.5 MG TAB PO SCH (09:35)
[2020-11-10] MEDS: ACETAMINOPHEN 325 MG TAB PO PRN (09:35)
[2020-11-10] MEDS: LORazepam 1 MG/2 ML VIAL IV PRN (11:24)
[2020-11-10] MEDS: GLYCOPYRROLATE 0.2 MG/ML VIAL IV SCH ×4 (11:24→21:44)
--- NOTE | 2020-11-10 12:10 | Palliative Care Progress Note ---
Date of Service November 10, 2020 Assessment & Plan (1) Dyspnea: Increased oxycodone to 10mg every four hours as needed. Added hydromorphone prn for severe dyspnea (2) Anxiety: Increase ativan to 1mg (3) Palliative care encounter: I had a conversation with Mr Garcia about his decline and the concern that he is approaching his dying time. He expresses the wish to be at home for his . However given his concerns about symptom management and increased symptoms today, will monitor on medication adjustments. I also spoke with Ally on the phone to discuss plan of care. She would very much like to have him at home. Hopefully we can stabilize him from a symptom management standpoint and he can return home with hospice care. We did discuss the possibility of comfort measures only here at the hospital if needed and that she would be able to visit. Unfortunately, his is disabled and would not be able to visit if he were not able to go home. Discussed with RN and Dr. Vasquez. (4) Increased tracheal secretions: He does not seem able to expectorate secretions at this time, will d/c mucinex and start glycopyrrolate. Admission and Anticipated Discharge Date Admission Date: November 05, 2020 Subjective More short of breath and anxious this morning. He complains of difficulty breathing with tracheal secretions. Still feels short of breath after oxycodone, morphine and ativan. He is asking to go home. Review of Systems Review of Systems: Limited due to symptom burden Pain 0/3 Dyspnea 2/3 Anxiety 3/3 Palliative Performance Score 30% Physical Exam Constitutional: + in distress ENMT: Mouth: + dry oral mucous membranes Respiratory: + labored breathing and + uses accessory muscles Gastrointestinal (Abdomen): Inspection/Auscultation: + abdomen distended Musculoskeletal: Extremities: + muscle atrophy Skin: pale Neurologic: awake Psychiatric: Affect: + anxious affect Results & Data ([facility]) Vital Signs (Past 12 Hours) Vital Signs Temp Pulse Pulse Resp BP BP Pulse Ox 11/10/20 07:51 100 H 11/10/20 07:48 96.8 F L 107 H 18 135/81 100 11/10/20 07:00 119 H 22 81 L 11/10/20 04:00 97.3 F L 105 H 20 97/63 L 97 PG Care Time/CCT Total # of Minutes Spent Total Time Spent with Patient: Total time spent is greater than 50% in coordination of care (as documented) at patient's floor/unit and/or counseling patient: total time spent 45 min with more than 50% of time spent on symptom management, goals of care, family update and support, coordination of care Coding Level of Care Code 65329 Subseq Hosp Care Lvl 3 Diagnoses Dyspnea R06.00 Anxiety F41.9 Palliative care encounter Z51.5 Increased tracheal secretions J39.8
--- NOTE | 2020-11-10 15:07 | Hospitalist Progress Note ---
Date of Service November 10, 2020 Assessment & Plan (1) Acute and chronic respiratory failure with hypoxia: Acute on chronic respiratory failure with hypoxia/pneumonia/COPD exacerbation- Status post recent hospitalization from 10/30-11/03 for similar process continue Zosyn and Zithromax x 5 days total, finished 11/09 Methylprednisolone 40 mg IV every 8 hours cut to q12 11/08, continue for now, transitioning to comfort care Duonebs every 2 hours PRN appreciate palliative consult continue scheduled Ativan for anxiety, Oxycodone for dyspnea patient is end stage respiratory failure, needs hospice at this point he is requiring Ativan IV, increased dose of Oxycodone, glycopyrrolate Dilaudid IV is available for breakthrough relief of dyspnea I have doubts about him being comfortable at home, would probably benefit from being here on IV comfort measures his daughter will come in for a visit today, discuss at bedside (2) Pneumonia: See above no fever, minimal cough but this is because he lacks strength to cough up phlegm would give abx for 5 days, finished 11/09 (3) COPD exacerbation: See above no wheezing will cut Solu Medrol to q12 and transition to Prednisone eventually (4) Atrial fibrillation: Atrial fibrillation/long-term anticoagulant use- stop Eliquis and metoprolol, comfort only (5) Anticoagulant long-term use: See above (6) Anxiety: Continue buspirone as needed lorazepam and trazodone. big driving force in his discomfort, dyspnea trying to control with scheduled Ativan but still needing IV Ativan today for breakthrough (7) Hyperkalemia: due to hemolysis (8) Chronic respiratory failure with hypoxia: stable on 4L breathing and air hunger is getting worse each day unlikely to be able to control air hunger at home (9) Chronic kidney disease, stage 3: stable (10) Pressure ulcer: Pressure-induced deep tissue damage of right buttock, unstageable, POA Admission and Anticipated Discharge Date Admission Date: November 05, 2020 Subjective patient had a really rough night last night, yelling out, very uncomfortable, lots of distress and anxiety was exclaiming "just let me go" and he was oriented this morning prior to my visit Dr. Mcgregor saw him, gave him Ativan 0.5 IV, Oxycodone 10mg, glycopyrrolate for secretions he is finally resting and sleeping comfortably the plan was to go home on hospice today but he is not stable, cannot control his symptoms very well on just oral agents I spoke with his daughter Ally, will make him comfort measure only she would like to come in and see him for end of life visit, will come in today I explained that I am concerned we won't be able to control his symptoms at home since he has needed IV medications for comfort may transition to continuous medications for comfort Review of Systems Review of Systems: Unobtainable due to cognitive status and Unobtainable due to reduced consciousness Physical Exam Constitutional: well developed, + frail appearing and comfortable; no acute distress Neck: trachea midline, no thyromegaly Respiratory: normal respiratory effort; no respiratory distress and no labored breathing Auscultation: + diminished lung sounds, + crackles and + rhonchi (weak cough) Cardiovascular: Rate/Rhythm: regular rate and + irregularly irregular Heart Sounds: normal S1 and normal S2; no murmur Vessels: no JVD Extremities: normal capillary refill; no edema Gastrointestinal (Abdomen): normal bowel sounds, soft, nontender, no hepatosplenomegaly Musculoskeletal: Head/Neck/Chest: normocephalic, head atraumatic and neck supple Extremities: + abnormal strength (generalized weakness) and + muscle atrophy; no cyanosis and no petechiae Skin: no rashes, warm and dry Neurologic: normal touch/pain/proprioception, CN's II-XI intact bilaterally, moves all extremities and awake; no focal motor deficits Psychiatric: Orientation: + not alert and + not oriented x 3 Affect: + anxious affect Lymphatic: no cervical or axillary lymphadenopathy Results & Data Results & Data ([facility]) Vital Signs (Past 12 Hours) Vital Signs Temp Pulse Pulse Resp BP BP Pulse Ox 11/10/20 13:23 90 18 98 11/10/20 07:51 100 H 11/10/20 07:48 36.0 C L 107 H 18 135/81 100 11/10/20 07:00 119 H 22 81 L 11/10/20 04:00 36.3 C L 105 H 20 97/63 L 97 Medications Administered Current Inpatient Medications Acetaminophen (Acetaminophen 325 Mg Tab) 650 mg PO Q4H PRN PRN Reason: Pain or Fever Stop: 12/05/20 22:19 Last Admin: 11/10/20 09:35 Dose: 650 mg Documented by: Albuterol (Albut/Ipratrop 3mg/0.5mg Neb 3 Ml Vial) 3 ml NEB TIDR [facility] Stop: 12/08/20 12:59 Last Admin: 11/10/20 13:21 Dose: 3 ml Documented by: Buspirone HCl (Buspirone 5 Mg Tab) 5 mg PO BID [facility] Stop: 12/05/20 22:19 Last Admin: 11/10/20 08:28 Dose: 5 mg Documented by: Glycopyrrolate (Glycopyrrolate 0.2 Mg/Ml Vial) 0.2 mg IV Q4H [facility] Stop: 12/10/20 10:29 Last Admin: 11/10/20 11:24 Dose: 0.2 mg Documented by: Heparin Sodium (Beef Lung) (Heparin 10 Unit/Ml 5 Ml Flush) 5 ml FLUSH PRN PRN PRN Reason: Flush Stop: 12/06/20 00:56 Last Admin: 11/08/20 17:37 Dose: 5 ml Documented by: Hydromorphone HCl (Hydromorphone Inj 0.5 Mg/0.5 Ml Syr) 0.5 mg IV Q30M PRN PRN Reason: Severe shortness of breath Stop: 11/24/20 12:18 Methylprednisolone 40 mg/ (Syringe) 0.64 mls @ 1.5 mls/min IV Q12H [facility] Stop: 12/08/20 08:59 Last Admin: 11/10/20 06:15 Dose: 1.5 mls/min Documented by: Lorazepam (Ativan) 1 mg in 2 mls @ 0.5 mls/min IV Q4H PRN PRN Reason: severe agitation Stop: 12/10/20 10:16 Last Admin: 11/10/20 11:24 Dose: 0.5 mls/min Documented by: Lorazepam (Lorazepam 0.5 Mg Tab) 0.5 mg PO BID PRN PRN Reason: Anxiety Stop: 12/05/20 22:19 Last Admin: 11/10/20 07:14 Dose: 0.5 mg Documented by: Lorazepam (Lorazepam 0.5 Mg Tab) 0.5 mg SL TID [facility] Stop: 12/10/20 13:59 Last Admin: 11/10/20 15:11 Dose: Not Given Documented by: Melatonin (Melatonin 3 Mg Tab) 9 mg PO [facility] Stop: 12/05/20 22:19 Last Admin: 11/09/20 20:25 Dose: 9 mg Documented by: Ondansetron HCl (Ondansetron Inj 2 Mg/Ml 2 Ml Vial) 4 mg IV Q6H PRN PRN Reason: Nausea Stop: 12/05/20 22:19 Oxycodone HCl (Oxycodone Hcl 5 Mg/0.25 Ml Udp) 10 mg PO Q4H PRN PRN Reason: Pain or shortness of breath Stop: 11/20/20 13:08 Last Admin: 11/10/20 11:23 Dose: 10 mg Documented by: Trazodone HCl (Trazodone Hcl 50 Mg Tab) 50 mg PO [facility] Stop: 12/05/20 22:19 Last Admin: 11/09/20 20:25 Dose: 50 mg Documented by: PG Care Time/CCT Total # of Minutes Spent Total Time Spent: 35 Total Time Spent with Patient: Total time spent is greater than 50% in coordination of care (as documented) at patient's floor/unit and/or counseling patient: discussions with daughter discussions with Dr. Mcgregor, palliative care examination of patient, documentation, medication plan Coding Level of Care Code 87300 Subseq Hosp Care Lvl 3 Diagnoses Acute and chronic respiratory failure with hypoxia J96.21 Pneumonia J18.9 Laterality: left Lung location: unspecified part of lung Pneumonia type: due to unspecified organism COPD exacerbation J44.1 Atrial fibrillation I48.91 Atrial fibrillation type: unspecified Anticoagulant long-term use Z79.01 Anxiety F41.9 Hyperkalemia E87.5 Chronic respiratory failure with hypoxia J96.11 Chronic kidney disease, stage 3 N18.3 Pressure ulcer L89.90 (1) Pneumonia Laterality: left Lung location: unspecified part of lung Pneumonia type: due to unspecified organism Qualified Code(s): J18.9 - Pneumonia, unspecified organism (2) Atrial fibrillation Atrial fibrillation type: unspecified Qualified Code(s): I48.91 - Unspecified atrial fibrillation
[2020-11-10] MEDS: LORazepam 0.5 MG TAB SL SCH ×2 (15:11→20:12)
[2020-11-10] MEDS: MELATONIN 3 MG TAB PO SCH (20:13)
[2020-11-10] MEDS: traZODone HCL 50 MG TAB PO SCH (20:13)
[2020-11-10] MEDS: HYDROmorphone INJ 0.5 MG/0.5 ML SYR IV PRN (21:44)
[2020-11-10] MEDS ORDERED: SCOPOLAMINE 1 MG TDSY TD SCH (23:15)
[2020-11-11] MEDS: CHECK SCOPOLAMINE PATCH PLACEMENT SCH ×4 (00:04→23:36)
[2020-11-11] MEDS: GLYCOPYRROLATE 0.2 MG/ML VIAL IV SCH ×6 (02:24→23:36)
[2020-11-11] MEDS: HYDROmorphone INJ 0.5 MG/0.5 ML SYR IV PRN ×3 (03:59→19:31)
[2020-11-11] MEDS: methylPREDNISolone 40 MG in SYRINGE 0 ML IV SCH (05:14)
[2020-11-11] MEDS: LORazepam 1 MG/2 ML VIAL IV PRN ×2 (05:20→12:00)
[2020-11-11] MEDS: ALBUT/IPRATROP 3MG/0.5MG NEB 3 ML VIAL NEB SCH ×3 (07:10→19:23)
[2020-11-11] MEDS: LORazepam 0.5 MG TAB SL SCH ×3 (08:36→20:57)
[2020-11-11] MEDS: busPIRone 5 MG TAB PO SCH (08:36)
--- NOTE | 2020-11-11 12:25 | Hospitalist Progress Note ---
Date of Service November 11, 2020 Assessment & Plan (1) Acute and chronic respiratory failure with hypoxia: Acute on chronic respiratory failure with hypoxia/pneumonia/COPD exacerbation- Status post recent hospitalization from 10/30-11/03 for similar process continue Zosyn and Zithromax x 5 days total, finished 11/09 Methylprednisolone 40 mg IV every 8 hours cut to q12 11/08, will stop today, comfort measures only appreciate palliative consult continue scheduled Ativan for anxiety, Oxycodone for dyspnea patient is end stage respiratory failure, needs hospice at this point he is requiring Dilaudid IV, Ativan IV, increased dose of Oxycodone, glycopyrrolate scopolamine patch for secretions last night I have doubts about him being comfortable at home, would probably benefit from being here on IV comfort measures his daughter visited on 11/10, all she wants is for him to be comfortable she agrees that this probably not possible at home (2) Pneumonia: See above no fever, minimal cough but this is because he lacks strength to cough up phlegm would give abx for 5 days, finished 11/09 (3) COPD exacerbation: See above no wheezing will stop Solu Medrol today, comfort care (4) Atrial fibrillation: Atrial fibrillation/long-term anticoagulant use- stop Eliquis and metoprolol, comfort only (5) Anticoagulant long-term use: See above (6) Anxiety: big driving force in his discomfort, dyspnea trying to control with scheduled Ativan but still needing IV Ativan for breakthrough (7) Hyperkalemia: due to hemolysis (8) Chronic respiratory failure with hypoxia: stable on 4L breathing and air hunger is getting worse each day unlikely to be able to control air hunger at home he is very comfortable with Dilaudid IV and Ativan IV (9) Chronic kidney disease, stage 3: stable (10) Pressure ulcer: Pressure-induced deep tissue damage of right buttock, unstageable, POA Admission and Anticipated Discharge Date Admission Date: November 05, 2020 Subjective patient received Dilaudid IV and Ativan IV early this morning now has Scopolamine patch due to excessive secretions this morning d/w his daughter over the phone, will keep him here on comfort measures she was hoping to take him home but understands it is unrealistic he is sleeping this morning, won't wake up to verbal stimuli, appears very comfortable could not eat anything yesterday, coughed on water, likely aspirating, does not have strength to cough up secretions Review of Systems Review of Systems: Unobtainable due to cognitive status and Unobtainable due to reduced consciousness Physical Exam Constitutional: well developed, + frail appearing and comfortable; no acute distress Neck: trachea midline, no thyromegaly Respiratory: normal respiratory effort; no respiratory distress and no labored breathing Auscultation: + diminished lung sounds, + crackles and + rhonchi (weak cough) Cardiovascular: Rate/Rhythm: regular rate and + irregularly irregular Heart Sounds: normal S1 and normal S2; no murmur Vessels: no JVD Extremities: normal capillary refill; no edema Gastrointestinal (Abdomen): normal bowel sounds, soft, nontender, no hepatosplenomegaly Musculoskeletal: Head/Neck/Chest: normocephalic, head atraumatic and neck supple Extremities: + abnormal strength (generalized weakness) and + muscle atrophy; no cyanosis and no petechiae Skin: no rashes, warm and dry Neurologic: normal touch/pain/proprioception, CN's II-XI intact bilaterally, moves all extremities and awake; no focal motor deficits Psychiatric: Orientation: + not alert and + not oriented x 3 Lymphatic: no cervical or axillary lymphadenopathy Results & Data Results & Data ([facility]) Vital Signs (Past 12 Hours) Vital Signs Pulse Resp Pulse Ox 11/11/20 07:10 77 18 90 Medications Administered Current Inpatient Medications Acetaminophen (Acetaminophen 325 Mg Tab) 650 mg PO Q4H PRN PRN Reason: Pain or Fever Stop: 12/05/20 22:19 Last Admin: 11/10/20 09:35 Dose: 650 mg Documented by: Albuterol (Albut/Ipratrop 3mg/0.5mg Neb 3 Ml Vial) 3 ml NEB TIDR [facility] Stop: 12/08/20 12:59 Last Admin: 11/11/20 07:10 Dose: 3 ml Documented by: Buspirone HCl (Buspirone 5 Mg Tab) 5 mg PO BID [facility] Stop: 12/05/20 22:19 Last Admin: 11/11/20 08:36 Dose: Not Given Documented by: Glycopyrrolate (Glycopyrrolate 0.2 Mg/Ml Vial) 0.2 mg IV Q4H [facility] Stop: 12/10/20 10:29 Last Admin: 11/11/20 10:14 Dose: 0.2 mg Documented by: Heparin Sodium (Beef Lung) (Heparin 10 Unit/Ml 5 Ml Flush) 5 ml FLUSH PRN PRN PRN Reason: Flush Stop: 12/06/20 00:56 Last Admin: 11/08/20 17:37 Dose: 5 ml Documented by: Hydromorphone HCl (Hydromorphone Inj 0.5 Mg/0.5 Ml Syr) 0.5 mg IV Q30M PRN PRN Reason: Severe shortness of breath Stop: 11/24/20 12:18 Last Admin: 11/11/20 03:59 Dose: 0.5 mg Documented by: Methylprednisolone 40 mg/ (Syringe) 0.64 mls @ 1.5 mls/min IV Q12H [facility] Stop: 12/08/20 08:59 Last Admin: 11/11/20 05:14 Dose: 1.5 mls/min Documented by: Lorazepam (Ativan) 1 mg in 2 mls @ 0.5 mls/min IV Q4H PRN PRN Reason: severe agitation Stop: 12/10/20 10:16 Last Admin: 11/11/20 12:00 Dose: 0.5 mls/min Documented by: Lorazepam (Lorazepam 0.5 Mg Tab) 0.5 mg PO BID PRN PRN Reason: Anxiety Stop: 12/05/20 22:19 Last Admin: 11/10/20 07:14 Dose: 0.5 mg Documented by: Lorazepam (Lorazepam 0.5 Mg Tab) 0.5 mg SL TID [facility] Stop: 12/10/20 13:59 Last Admin: 11/11/20 08:36 Dose: Not Given Documented by: Melatonin (Melatonin 3 Mg Tab) 9 mg PO HS [facility] Stop: 12/05/20 22:19 Last Admin: 11/10/20 20:13 Dose: Not Given Documented by: Miscellaneous (Check Scopolamine Patch Placement) 1 ea N/A QS [facility] Stop: 12/11/20 00:00 Last Admin: 11/11/20 08:42 Dose: 1 ea Documented by: Miscellaneous (Remove Transderm-Scop Patch) 1 ea N/A Q72H [facility] Stop: 12/13/20 23:14 Ondansetron HCl (Ondansetron Inj 2 Mg/Ml 2 Ml Vial) 4 mg IV Q6H PRN PRN Reason: Nausea Stop: 12/05/20 22:19 Oxycodone HCl (Oxycodone Hcl 5 Mg/0.25 Ml Udp) 10 mg PO Q4H PRN PRN Reason: Pain or shortness of breath Stop: 11/20/20 13:08 Last Admin: 11/11/20 11:55 Dose: 10 mg Documented by: Scopolamine (Scopolamine 1.5 Mg Tdsy) 1.5 mg TD Q72H [facility] Stop: 12/10/20 23:14 Last Admin: 11/10/20 23:57 Dose: 1.5 mg Documented by: Trazodone HCl (Trazodone Hcl 50 Mg Tab) 50 mg PO HS [facility] Stop: 12/05/20 22:19 Last Admin: 11/10/20 20:13 Dose: Not Given Documented by: PG Care Time/CCT Total # of Minutes Spent Total Time Spent with Patient: Total time spent is greater than 50% in co ordination of care (as documented) at patient's floor/unit and/or counseling patient: Coding Level of Care Code 89573 Subseq Hosp Care Lvl 2 Diagnoses Acute and chronic respiratory failure with hypoxia J96.21 Pneumonia J18.9 Laterality: left Lung location: unspecified part of lung Pneumonia type: due to unspecified organism COPD exacerbation J44.1 Atrial fibrillation I48.91 Atrial fibrillation type: unspecified Anticoagulant long-term use Z79.01 Anxiety F41.9 Hyperkalemia E87.5 Chronic respiratory failure with hypoxia J96.11 Chronic kidney disease, stage 3 N18.3 Pressure ulcer L89.90 (1) Pneumonia Laterality: left Lung location: unspecified part of lung Pneumonia type: due to unspecified organism Qualified Code(s): J18.9 - Pneumonia, unspecified organism (2) Atrial fibrillation Atrial fibrillation type: unspecified Qualified Code(s): I48.91 - Unspecified atrial fibrillation
[2020-11-11] MEDS: LORazepam 0.5 MG TAB PO PRN (19:31)
[2020-11-11] MEDS: traZODone HCL 50 MG TAB PO SCH (20:57)
[2020-11-11] MEDS: MELATONIN 3 MG TAB PO SCH (20:57)
[2020-11-12] MEDS: HYDROmorphone INJ 0.5 MG/0.5 ML SYR IV PRN ×3 (01:13→09:18)
[2020-11-12] MEDS: GLYCOPYRROLATE 0.2 MG/ML VIAL IV SCH ×2 (01:13→05:24)
[2020-11-12] MEDS: ALBUT/IPRATROP 3MG/0.5MG NEB 3 ML VIAL NEB SCH (07:41)
[2020-11-12] MEDS: LORazepam 0.5 MG TAB SL SCH (07:50)
[2020-11-12] MEDS: CHECK SCOPOLAMINE PATCH PLACEMENT SCH (07:50)
[2020-11-12] MEDS ORDERED: ALBUT/IPRATROP 3MG/0.5MG NEB 3 ML VIAL NEB PRN (08:14)
--- NOTE | 2020-11-12 10:06 | Death Pronouncement Note ---
Date of Service November 12, 2020 Pronouncement Note Admission Date Admission Date: November 05, 2020 Date and Time of Date of : 11/12/20 Time of : 09:50 PCOD Preliminary cause of : Acute on chronic respiratory failure Contributing Factors (1) Acute and chronic respiratory failure with hypoxia: (2) Pneumonia: (3) COPD exacerbation: (4) Atrial fibrillation: (5) Anticoagulant long-term use: (6) Anxiety: (7) Hyperkalemia: (8) Chronic respiratory failure with hypoxia: (9) Chronic kidney disease, stage 3: (10) Pressure ulcer: Hospital Course Hospital Course: see discharge summary for details Additional Data Confirmation of : no pulse, no respirations, no heart sounds and pupils fixed and dilated Family: contacted Attending/PCP notified?: Yes Attending physician: Delio Vasquez, DO Was code activated?: No Autopsy requested?: No sock lining examiner notified?: No Organ bank notified?: No Advance directives: No Coding Level of Care Code None Diagnoses Acute and chronic respiratory failure with hypoxia J96.21 Pneumonia J18.9 Laterality: left Lung location: unspecified part of lung Pneumonia type: due to unspecified organism COPD exacerbation J44.1 Atrial fibrillation I48.91 Atrial fibrillation type: unspecified Anticoagulant long-term use Z79.01 Anxiety F41.9 Hyperkalemia E87.5 Chronic respiratory failure with hypoxia J96.11 Chronic kidney disease, stage 3 N18.3 Pressure ulcer L89.90
--- NOTE | 2020-11-12 10:10 | Discharge Summary ---
Date of Service November 12, 2020 Admission HPI Per Admitting Provider The patient is an 85-year-old male with a past medical history of atrial fibrillation, anxiety, stage II buttock pressure ulcer, iron deficiency anemia, chronic indwelling Venegas catheter, chronic respiratory failure with hypoxia, intertrigo, COPD, UTI, generalized weakness, long-term anticoagulant use, anemia, hypotension, sepsis due to UTI, physical deconditioning, acute on chronic diastolic CHF, fecal impaction, pyelonephritis, BPH, allergic rhinitis, vitamin D deficiency, PAD, carotid artery disease, Dimas's disease and hyperlipidemia. His most recent admitted to [facility] from 10/30-11/03 due to similar symptoms as presenting with today. Principal Diagnosis Acute on chronic respiratory failure with hypoxia Discharge Exam no pulse, no respirations, no heart sounds, no breath sounds, pupils fixed, unresponsive Discharge Data Allergies Allergy/AdvReac Type Severity Reaction Status Date / Time tamsulosin Allergy Unknown Unknown Verified 11/05/20 18:00 cilostazol AdvReac Intermediate dizziness, Verified 11/05/20 18:00 palpitations diltiazem AdvReac Intermediate dizziness, Verified 11/05/20 18:00 palpitations simvastatin AdvReac Mild dizziness Verified 11/05/20 18:00 Consultations 11/05/20 19:18 ED Decision to Admit Stat 11/05/20 22:20 Consult Case Management - Discharge Planning Routine 11/06/20 07:46 Consult Palliative Care Routine Hospital Course (1) Acute and chronic respiratory failure with hypoxia: Acute on chronic respiratory failure with hypoxia/pneumonia/COPD exacerbation- Status post recent hospitalization from 10/30-11/03 for similar process completed 5 days of Zosyn and Zithromax on 11/09 Methylprednisolone 40 mg IV every 8 hours cut to q12 11/08, stopped 11/11, comfort measures only appreciate palliative consult continue scheduled Ativan for anxiety, Oxycodone for dyspnea patient is end stage respiratory failure, needs hospice at this point he is requiring Dilaudid IV, Ativan IV, increased dose of Oxycodone, glycopyrrolate scopolamine patch for secretions his daughter visited on 11/10, all she wanted was for him to be comfortable she agreed that this was not possible at home made comfort measures only, IV Ativan and Dilaudid he peacefully at 950am on 11/12/20 (2) Pneumonia: See above no fever, minimal cough but this is because he lacks strength to cough up phlegm 5 days of antibiotics, finished 11/09 (3) COPD exacerbation: See above no wheezing but also very diminished breath sounds, advanced COPD comfort care (4) Atrial fibrillation: Atrial fibrillation/long-term anticoagulant use- stop Eliquis and metoprolol, comfort only (5) Anticoagulant long-term use: See above (6) Anxiety: big driving force in his discomfort, dyspnea required Ativan IV for comfort (7) Hyperkalemia: due to hemolysis (8) Chronic respiratory failure with hypoxia: typically on 4L breathing and air hunger is getting worse each day unlikely to be able to control air hunger at home he is very comfortable with Dilaudid IV and Ativan IV (9) Chronic kidney disease, stage 3: stable (10) Pressure ulcer: Pressure-induced deep tissue damage of right buttock, unstageable, POA Total Time Total Time Spent Total Time Spent (In Minutes): 20 minutes Total Time Includes: Examination of the Patient and Other (talking with his daughter) Discharge Plan Discharge Items Reason For Visit: PNEUMONIA,COPD EXACERBATION Follow-up/Referrals: Guerrero Morse MD [Primary Care Provider] - Medications and DC Order Prescriptions: No Action sodium chloride 7 % solution for nebulization 4 ml INH BID Qty: 240 RF: 2 potassium chloride 10 mEq capsule, extended release 10 meq PO Q2D Qty: 30 RF: 3 Eliquis 2.5 mg tablet 2.5 mg PO BID Qty: 180 RF: 1 (DME) Hospital Bed Misc See Rx Instructions .ROUTE .MEDSUPPLY Qty: 1 RF: 0 albuterol sulfate 90 mcg/actuation HFA aerosol inhaler 2 puff inhalation QID PRN (Reason: Shortness Of Breath Or Wheezing) Qty: 18 RF: 5 pravastatin 20 mg tablet 20 mg PO QPM Qty: 90 RF: 3 prednisone 10 mg tablet 10 mg PO QAM Qty: 90 RF: 3 buspirone 5 mg tablet 5 mg PO BID Qty: 60 RF: 5 ipratropium-albuterol 0.5 mg-3 mg(2.5 mg base)/3 mL solution for nebulization 3 ml Inhalation TID Qty: 180 RF: 5 montelukast 10 mg tablet 10 mg PO QAM Qty: 90 RF: 1 folic acid 800 mcg Tablet 800 mcg PO QAM RF: 0 lorazepam 0.5 mg tablet 0.5 mg PO DAILY PRN (Reason: Anxiety) RF: 0 melatonin 10 mg Tablet 10 mg PO HS RF: 0 Dulera 200-5 mcg/actuation HFA aerosol inhaler 1 puff INHALATION BID RF: 0 metoprolol succinate 50 mg tablet extended release 24 hr 75 mg PO QAM RF: 0 Spiriva Respimat 2.5 mcg/actuation mist 2 puff inhalation QAM RF: 0 cholecalciferol (vitamin D3) [Vitamin D3] 2,000 unit capsule 2,000 units PO QAM RF: 0 cyanocobalamin (vitamin B-12) 1,000 mcg capsule 1,000 mcg PO QAM RF: 0 trazodone 50 mg tablet 50 mg PO HS RF: 0 furosemide 20 mg tablet 20 mg PO Q2D RF: 0 Admission Data Admit Date/Time: 11/05/20 20:03 Attending Provider: Delio Vasquez Admit Provider: Ashvin Arndt Primary Care Provider: Guerrero Morse Other Providers: [place] ; Ashvin Arndt ; Michelle Mcgregor Coding Level of Care Code D/C Day Management <30 mins Diagnoses Acute and chronic respiratory failure with hypoxia J96.21 Pneumonia J18.9 Laterality: left Lung location: unspecified part of lung Pneumonia type: due to unspecified organism COPD exacerbation J44.1 Atrial fibrillation I48.91 Atrial fibrillation type: unspecified Anticoagulant long-term use Z79.01 Anxiety F41.9 Hyperkalemia E87.5 Chronic respiratory failure with hypoxia J96.11 Chronic kidney disease, stage 3 N18.3 Pressure ulcer L89.90
== END 2020-11-12 12:48 | disposition expired | DRG 193 ==
LOC: ED 16:54 → SUATTDRO 20:03 → 2N 20:03 → 2W 11-10 16:14